=== PATIENT | female | born 1940 | race Caucasian/White ===

== ENCOUNTER 2017-10-31 10:55 | Inpatient (IN) | payer OTHER ==
[2017-10-31] VITALS (11 sets, daily range): BP systolic 120–138; BP diastolic 70–74; PULSE 90–99; TEMP 36.8; O2SAT 92–96; BMI 21.5
[~2017-10-31] VITALS: Ht 157.5 cm; Wt 52.2 kg
[~2017-10-31 10:55] MED LIST: AMLO-114 PO; ASPCH81 PO; BTP80 PO; CLTP PO; CMD25 PO; DXY100 PO; GLC500 PO; INSDGI SC; LCTX PO; LISI-788 PO; MULT-506 PO; OXGN; PRD10 PO; PRT40 PO
--- NOTE | 2017-10-31 11:33 | DIAGNOSTIC IMAGING REPORT ---
CHEST ONE VIEW PORTABLE CLINICAL HISTORY: Weakness, shortness of breath. COMPARISON STUDY: 12/10/2013 FINDINGS: The heart is normal in size. There is no focal pulmonary consolidation. There are no pleural effusions. There is mild chronic interstitial thickening.[ IMPRESSION: No active disease in the chest. Electronically signed by: Antione Davis M.D. 10/31/2017 11:32 AM Dictated Date/Time: 10/31/2017 11:31 AM
[2017-10-31 11:41] LABS: BASO % 0.1 %; BASO ABS # 0.02 K/uL (0-0.2); EOS % 0.9 %; EOS ABS # 0.12 K/uL (0-0.5); HEMATOCRIT 41.7 % (37-47); HEMOGLOBIN 14.4 g/dL (12.0-16.0); IG# 0.02 K/uL (0.00-0.02); MEAN CELL VOLUME 84.2 fL (80-100); MEAN CORPUSCULAR HEMOGLOBIN 29.1 pg (25-34); MEAN CORPUSCULAR HGB CONC 34.5 g/dl (32-36); MEAN PLATELET VOLUME 11.2 fL (7.4-10.4); MONO % 1.7 %; MONO ABS # 0.23 K/uL (0.11-0.59); NEUT % 85.2 %; NEUT ABS # 11.39 K/uL (1.4-6.5); PLATELET COUNT 357 K/uL (130-400); RED CELL DISTRIBUTION WIDTH CV 14.4 % (11.5-14.5); RED CELL DISTRIBUTION WIDTH SD 44.4 fL (36.4-46.3); WHITE BLOOD COUNT 13.38 K/uL (4.8-10.8)
[2017-10-31] MEDS ORDERED: METHYLPREDNISOLONE 125 MG VIAL IV STA (11:46)
[2017-10-31 11:49] LABS: INR 2.5 (0.9-1.1)
[2017-10-31] MEDS ORDERED: ALBUT/IPRATROP 3MG/0.5MG NEB 3 ML VIAL INH ONE (12:00)
[2017-10-31 12:07] LABS: ALBUMIN 3.5 gm/dl (3.4-5.0); ALT/SGPT 21 U/L (12-78); BLOOD UREA NITROGEN 20 mg/dl (7-18); CALCIUM 10.2 mg/dl (8.5-10.1); CARBON DIOXIDE 34 mmol/L (21-32); CREATININE 0.68 mg/dl (0.60-1.20); GLUCOSE 152 mg/dl (70-99); POTASSIUM 3.3 mmol/L (3.5-5.1); SODIUM 129 mmol/L (136-145)
[2017-10-31 12:18] LABS: ALKALINE PHOSPHATASE 85 U/L (45-117); AST/SGOT 17 U/L (15-37); TOTAL PROTEIN 7.7 gm/dl (6.4-8.2)
[2017-10-31] MEDS ORDERED: METF-841 PO (12:22)
[2017-10-31] MEDS ORDERED: WARF-280 PO (12:22)
[2017-10-31] MEDS ORDERED: INSDGI SC (12:22)
[2017-10-31] MEDS ORDERED: BTP80 PO (12:22)
[2017-10-31] MEDS ORDERED: IPRASOL4 INH (12:22)
[2017-10-31] MEDS ORDERED: AMLO-110 PO (12:22)
[2017-10-31] MEDS ORDERED: ALBU18002 INH (12:22)
[2017-10-31] MEDS ORDERED: LISI-788 PO (12:22)
--- NOTE | 2017-10-31 13:28 | EMERGENCY ROOM VISIT NOTE ---
History Report prepared by Maria De Jesus: Lindsey Bustillos Under the Supervision of: Dr. Thom Tenorio M.D. First contact with patient: 11:00 Chief Complaint: SHORTNESS OF BREATH Stated Complaint: SOB Nursing Triage Summary: pt reports she was seen by pcp last week for flu sx this week cough worse used albuterol inhaler no relief.pt reports she woke this am tighter tahn normal. prehospital neb tx endtidal co2 was 31 History of Present Illness The patient is a 77 year old female who presents to the Emergency Room with complaints of worsening SOB starting yesterday. The patient presents to the ED by EMS. The patient was diagnosed with flu 2 weeks ago. She started feeling more SOB yesterday and this morning. The patient has been on prednisone for 2 days. She tried a nebulizer at home today to no significant relief. Her oxygen saturation was 78 on room air upon arrival. She normally wears 4 L of oxygen. She has a history of COPD. She vomited once on the way here. Pt denies LOC, headache, fevers, chills, diaphoresis, visual changes, neck pain, chest pain, nausea, abdominal pain, back pain, melena, hematochezia, urinary symptoms, numbness, weakness, lymphadenopathy, rash, or other complaints. Source of History: patient, nursing staff Onset: yesterday Position: other (respiratory) Quality: other (SOB) Timing: worsening Associated Symptoms: + vomiting Review of Systems See HPI for pertinent positives and negatives. A total of ten systems were reviewed and were otherwise negative. 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 Social History Smoking Status: Former Smoker Marital Status: Occupation Status: retired Current/Historical Medications Scheduled Amlodipine (Norvasc), 5 MG PO DAILY Home O2 Therapy (Oxygen), 2 LITERS NA PRN Insulin Glargine (Lantus), 12 UNITS SC DAILY Lisinopril/Hctz (Zestoretic 20MG/25MG), 1 TAB PO DAILY Metformin HCl (Metformin HCl ER), 1,000 MG PO BID Sotalol HCl (Sotalol HCl), 80 MG PO Q12 Warfarin Sodium (Warfarin Sodium), 5 MG PO DAILY Scheduled PRN Albuterol Sulfate (Proair Respiclick), 2 PUFFS INH Q4 PRN for SOB/Wheezing Ipratropium-Albuterol (Duoneb), 1 TREATMENT INH Q4H PRN for SOB/Wheezing Allergies Coded Allergies: No Known Allergies (Verified , 10/31/17) Physical Exam Vital Signs Date Time Temp Pulse Resp B/P (MAP) Pulse Ox O2 Delivery O2 Flow Rate FiO2 10/31/17 12:55 84 32 95 10/31/17 12:25 83 24 97 10/31/17 11:59 90 20 95 Mask 5.0 10/31/17 11:58 96 20 95 Mask 5.0 10/31/17 11:55 83 29 95 10/31/17 11:25 87 20 96 10/31/17 11:10 91 Oxymask 6.0 10/31/17 11:00 36.6 93 26 158/99 78 Room Air 10/31/17 11:00 78 Room Air 10/31/17 10:59 158/99 Physical Exam GENERAL: Awake, alert, well-appearing, in no distress HENT: Normocephalic, atraumatic. Oropharynx unremarkable. EYES: Normal conjunctiva. Sclera non-icteric. NECK: Supple. No nuchal rigidity. FROM. No masses. RESPIRATORY: Heavy cough present. Scattered wheezes. Decreased air movement. Dyspneic. Some accessory muscle use. CARDIAC: Normal rate. Normal rhythm. No murmurs. No rubs. Extremities warm and well perfused. Pulses equal. No JVD. GI: Soft, non-distended. No tenderness to palpation. No rebound or guarding. No masses. RECTAL: Deferred. MUSCULOSKELETAL: Atraumatic. Chest examination reveals no tenderness. The back is symmetrical on inspection without obvious abnormality. There is no CVA tenderness to palpation. No joint edema. LOWER EXTREMITIES: Calves are equal size bilaterally and non-tender. No edema. No discoloration. NEURO: Normal sensorium. No sensory or motor deficits noted. SKIN: No rash or jaundice noted. Medical Decision & Procedures ER Provider Diagnostic Interpretation: Radiology results as stated below per my review and radiologist interpretation: CHEST ONE VIEW PORTABLE CLINICAL HISTORY: Weakness, shortness of breath. COMPARISON STUDY: 12/10/2013 FINDINGS: The heart is normal in size. There is no focal pulmonary consolidation. There are no pleural effusions. There is mild chronic interstitial thickening.[ IMPRESSION: No active disease in the chest. Electronically signed by: Antione Davis M.D. 10/31/2017 11:32 AM Dictated Date/Time: 10/31/2017 11:31 AM Laboratory Results 10/31/17 11:10 Red Blood Count 4.95, Mean Corpuscular Volume 84.2, Mean Corpuscular Hemoglobin 29.1, Mean Corpuscular Hemoglobin Concent 34.5, Mean Platelet Volume 11.2, Neutrophils (%) (Auto) 85.2, Lymphocytes (%) (Auto) 12.0, Monocytes (%) (Auto) 1.7, Eosinophils (%) (Auto) 0.9, Basophils (%) (Auto) 0.1, Neutrophils # (Auto) 11.39, Lymphocytes # (Auto) 1.60, Monocytes # (Auto) 0.23, Eosinophils # (Auto) 0.12, Basophils # (Auto) 0.02 10/31/17 11:10 Test 10/31/17 11:10 White Blood Count 13.38 K/uL (4.8-10.8) Red Blood Count 4.95 M/uL (4.2-5.4) Hemoglobin 14.4 g/dL (12.0-16.0) Hematocrit 41.7 % (37-47) Mean Corpuscular Volume 84.2 fL (80-100) Mean Corpuscular Hemoglobin 29.1 pg (25-34) Mean Corpuscular Hemoglobin Concent 34.5 g/dl (32-36) Platelet Count 357 K/uL (130-400) Mean Platelet Volume 11.2 fL (7.4-10.4) Neutrophils (%) (Auto) 85.2 % Lymphocytes (%) (Auto) 12.0 % Monocytes (%) (Auto) 1.7 % Eosinophils (%) (Auto) 0.9 % Basophils (%) (Auto) 0.1 % Neutrophils # (Auto) 11.39 K/uL (1.4-6.5) Lymphocytes # (Auto) 1.60 K/uL (1.2-3.4) Monocytes # (Auto) 0.23 K/uL (0.11-0.59) Eosinophils # (Auto) 0.12 K/uL (0-0.5) Basophils # (Auto) 0.02 K/uL (0-0.2) RDW Standard Deviation 44.4 fL (36.4-46.3) RDW Coefficient of Variation 14.4 % (11.5-14.5) Immature Granulocyte % (Auto) 0.1 % Immature Granulocyte # (Auto) 0.02 K/uL (0.00-0.02) Prothrombin Time 26.1 SECONDS (9.0-12.0) Prothromb Time International Ratio 2.5 (0.9-1.1) Activated Partial Thromboplast Time 35.0 SECONDS (21.0-31.0) Partial Thromboplastin Ratio 1.3 Anion Gap 9.0 mmol/L (3-11) Est Creatinine Clear Calc Drug Dose 53.9 ml/min Estimated GFR () 97.1 Estimated GFR (Non- 83.8 BUN/Creatinine Ratio 30.1 (10-20) Calcium Level 10.2 mg/dl (8.5-10.1) Magnesium Level 1.9 mg/dl (1.8-2.4) Total Bilirubin 0.4 mg/dl (0.2-1) Direct Bilirubin 0.1 mg/dl (0-0.2) Aspartate Amino Transf (AST/SGOT) 17 U/L (15-37) Alanine Aminotransferase (ALT/SGPT) 21 U/L (12-78) Alkaline Phosphatase 85 U/L (45-117) Total Creatine Kinase 42 U/L (26-192) Creatine Kinase MB 1.0 ng/ml (0.5-3.6) Creatine Kinase MB Ratio 2.4 (0-3.0) Troponin I < 0.015 ng/ml (0-0.045) Total Protein 7.7 gm/dl (6.4-8.2) Albumin 3.5 gm/dl (3.4-5.0) Thyroid Stimulating Hormone (TSH) 1.820 uIu/ml (0.300-4.500) Laboratory results reviewed by me Medications Administered Medications (Trade) Dose Ordered Sig/Liset Route Start Time Stop Time Status Last Admin Dose Admin Albuterol/ Ipratropium (Duoneb) 12 ml ONE ONCE INH 10/31/17 12:00 10/31/17 12:01 DC 3/2/18 11:56 12 ML Methylprednisolone Sodium Succinate (Solu-Medrol IV) 125 mg NOW STAT IV 10/31/17 11:46 10/31/17 11:48 DC 10/31/17 11:59 125 MG ECG Per My Interpretation Indication: SOB/dyspnea Rate (beats per minute): 86 Rhythm: normal sinus Findings: nonspecific-ST abn, no ectopy, other (LVH, repolarization abnormality ) ED Course 1122: The patient was evaluated in room C10. A complete history and physical exam was performed. 1146: Solu-Medrol IV 125 mg IV. 1200: Duoneb 12 ml INH. 1248: I discussed the patient's case with МАРИНА Richard. The patient will be evaluated for further treatment and disposition. 1250: Upon reexamination, the patient was stable. I discussed the test results and treatment plan with her. The patient will be evaluated for further management. Medical Decision Triage Nursing notes reviewed. The patient's presentation and history were concerning for SOB. Etiologies such as pneumonia, COPD, reactive airway disease, CHF, cardiac ischemia, pulmonary embolism, pneumothorax, musculoskeletal, infections, gastrointestinal, as well as others were entertained. The patient was evaluated. She was wheezy and hypoxic. She responded to supplemental oxygen. She was given an hour-long treatment plus Solu-Medrol. She was doing better with this. Her white count was mildly elevated. Chest x- ray revealed no evidence of pneumonia. The patient is currently taking prednisone. She had negative cardiac markers. She had a therapeutic INR. ECG was nonischemic. Given the hypoxia and failure of outpatient management she will need treatment in the hospital. Consultation was made with the hospitalist service. The patient was evaluated in the Emergency Room for further management. Medication Reconcilliation Current Medication List: was personally reviewed by me Blood Pressure Screening Patient's blood pressure: Elevated blood pressure Referred to hospitalist. Consults Consulting Physician: МАРИНА Richard Returned Call: [phone] Discussed the patient's case. The patient will be evaluated for further treatment and disposition. Impression Primary Impression: SOB (shortness of breath) Additional Impressions: Hypoxia COPD exacerbation Hyponatremia Scribe Attestation The scribe's documentation has been prepared under my direction and personally reviewed by me in its entirety. I confirm that the note above accurately reflects all work, treatment, procedures, and medical decision making performed by me. Departure Information Dispostion Being Evaluated By Hospitalist Referrals Valerie Leone D.O. (PCP) Patient Instructions [facility] Problem Qualifiers
[2017-10-31] MEDS ORDERED: POTASSIUM CHLORIDE 10 MEQ TABCR PO STA ×2 (13:57→15:05)
[2017-10-31] MEDS ORDERED: POLYETHYLENE (MIRALAX) 17 GM PACK PO PRN (14:15)
[2017-10-31] MEDS ORDERED: NITROGLYCERIN 0.4 MG SL PER TAB CHARGE SL PRN (14:15)
[2017-10-31] MEDS ORDERED: GLUCOSE 40% GEL 15 GM TUBE PO PRN (14:15)
[2017-10-31] MEDS ORDERED: DEXTROSE 50% 50 ML SYR IV PRN (14:15)
[2017-10-31] MEDS ORDERED: GLUCOSE 10 TABS/TUBE PO PRN (14:15)
[2017-10-31] MEDS ORDERED: MAGNESIUM HYDROXIDE SUSP 30 ML UDC PO PRN (14:15)
[2017-10-31] MEDS ORDERED: ONDANSETRON INJ 2 MG/ML 2 ML VIAL IV PRN (14:15)
[2017-10-31] MEDS ORDERED: ALUMINUM/MAGNESIUM/SIMETH (MAALOX MAX) 30 ML UDC PO PRN (14:15)
[2017-10-31] MEDS ORDERED: GLUCAGON FOR INJ 1 MG VIAL SQ PRN (14:15)
[2017-10-31] MEDS ORDERED: PHARMACY GLYCEMIC MGMT CONSULT PRN (15:08)
[2017-10-31] MEDS ORDERED: NSS + 20MEQ KCL 1000ML 1,000 ML IV SCH (15:15)
[2017-10-31] MEDS ORDERED: DOXYCYCLINE HYCLATE 100 MG CAP PO ONE (15:15)
[2017-10-31] MEDS ORDERED: ASPI-435 PO (15:27)
[2017-10-31] MEDS ORDERED: MULTTAB58 PO (15:27)
[2017-10-31] MEDS ORDERED: OXGN (15:27)
[2017-10-31] MEDS ORDERED: CALC-354 PO (15:27)
[2017-10-31] MEDS ORDERED: BENZ-54 PO (15:27)
[2017-10-31] MEDS ORDERED: WARFARIN SOD 2.5 MG TAB PO SCH (15:30)
[2017-10-31] MEDS ORDERED: INSULIN ASPART 100 UNITS/ML 3 ML PEN SC SCH (15:30)
[2017-10-31] MEDS ORDERED: GUAIFENESIN/DEXTROM SYRUP 100MG/10MG 5ML UDC PO PRN (15:45)
[2017-10-31] MEDS: IPRATROPIUM BROMIDE NEB SOLN 0.02% 2.5 ML VIAL INH SCH ×2 (15:45→19:10)
[2017-10-31] MEDS: LEVALBUTEROL 1.25MG/0.5ML NEB INH SCH ×2 (15:45→19:09)
[2017-10-31] MEDS: WARFARIN SOD 2.5 MG TAB PO SCH (15:59)
[2017-10-31] MEDS ORDERED: GUAIFENESIN/DEXTROM SYRUP 100MG/10MG 5ML UDC PO ONE (16:00)
--- NOTE | 2017-10-31 16:04 | Progress Note ---
Progress Note Date of Service Oct 31, 2017. Progress Note ATTENDING NOTE : pt seen and examined, care co -ordinated with Lakshmi Enrique PA-C This is a 77-year-old female with past medical history of advanced COPD (FEV1 66 %), with emphysema, prior history of smoking 10 pack year, quit in 2011, nocturnal and ambulatory hypoxemia requiring supplemental oxygen 4 L via nasal cannula, history of pulmonary nodules with establish stability, hypertension type 2 diabetes, mitral and tricuspid regurgitation, LVH and paroxysmal atrial fibrillation on long-term anticoagulation therapy with Coumadin and sotalol. Patient came to ER with complaining of dry nonproductive cough, shortness of breath, significant discharge dyspnea on exertion which has been ongoing for the past 1 week. Patient mentioned she was seen by her security incident response specialist at [facility], 2 weeks earlier and was thought that she had few. She refused to have a flu swab, was discharged with prednisone taper and p.o. doxycycline Patient mentions she felt for a few days, then started to have increased shortness of breath with minimum activity. Denies of any fever or chills, had persistent cough with whitish sputum. Today in the ER patient was found to be hypoxic, tachypneic minimum improvement of symptoms with 1 hour-long neb treatment, given IV Solu-Medrol 125 mg times 1X chest x-ray shows no evidence of infiltrate Physical Exam: General: Chronically ill appearing patient appears to be in distress for short of breath HEENT: Lips appear to be cyanotic, dry oral mucosa Lungs: Very poor air entry bilaterally, no audible wheeze or rales noted Heart: Regular S1-S2. Abdomen: Soft nontender bowel sounds active Extremity: No lower extremity edema Neuro: Generalized weakness, no focal neurological deficit noted ASSESSMENT AND PLAN : 1. Acute on chronic hypoxemic respiratory failure/advanced COPD: Presents with hypoxia dyspnea on exertion hypercapnic COPD exacerbation possibly due to viral illness Flu PCR ordered Patient will be admitted to telemetry We will continue IV Solu-Medrol 60 mg every 8 hours, treatment schedule and every 2 hours as needed for shortness of breath Order for ABG Patient will be placed on BiPAP Pulmonology consult requested case discussed with on-call pulmonology patient follows with pulmonology team increase were discussed in the clinic Pulmonary function test on 03/13/2017: Spirometry revealed moderately severe obstruction by ATS criteria. Flow volume loops were obstructive. Lung volumes were performed. The TLC (total lung capacity) was increased consistent with hyperinflation. The RV/TLC ratio was increased consistent with air trapping. The uncorrected diffusion capacity was severely reduced. Compared to prior PFTs in 2015 there has been significant decrease in FVC by 31%. Compared to prior PFTs there has been associated with significant decrease in FEV1 by 35 compared to prior PFD there has been significant decrease in diffusion capacity was 16% 2. Flulike symptoms Order for influenza antigen and PCR Continue supportive care Empiric antibiotic with doxycycline 3. History of paroxysmal A. fib on Coumadin INR therapeutic On sotalol continued 4. Type 2 diabetes Patient will be continued with blood tests ordered insulin sliding scale Monitoring please check closely blood sugar expected to be elevated in setting of IV steroids use We will adjust sliding scale as needed CODE STATUS: Full code-discussed with patient DVT prophylaxis: On Coumadin disposition: Lives at home by herself was independent in activities PT OT eval requested prior to discharge home Patient requesting a portable oxygen to be arranged prior to discharge Social service consulted for discharge Please refer to further documentation by Lakshmi Elder PA-C please see her documentation for further discussion of other issues. Stephanie Torres MD
--- NOTE | 2017-10-31 16:09 | History and Physical ---
History & Physical Date & Time of Service: Oct 31, 2017 at 14:29 Chief Complaint: SOB Primary Care Physician: Valerie Leone D.O. History of Present Illness Source: patient, clinic records, hospital records Pt is 77 y/o F with PMH COPD with hypoxemia on 4L oxygen, HTN, DM II, paroxysmal a-fib on Coumadin, mitral regurgitation who presented to ER with c/o increased SOB & cough x couple of days. Pt called [facility] office 10/01/17 with myalgias, cough, SOB. She denied having influenza swab at that time, and her symptoms were reported for one week , so no Tamiflu was given. She had prednisone for 5 days and Tessalon Perles. Seen by Carri RODRIGUEZ-pulmonology [place] on 10/07/17. At that time pt presented to office not using her oxygen and sats were 86% on RA. At that visit pt feeling improvement of her symptoms. Pt with hx intolerance to inhalers in past. She was rx Dulera recently, however pt reportedly never picked it up as the other inhalers in past never worked. She states past couple of days with cough and increased SOB at rest and unable to walk couple of steps without worsening SOB. Cough productive clear. She reports has been using 4L NC oxygen at home and using her DuoNeb Q4H with using albuterol inhaler in between nebs without much relief. Restarted prednisone rescue kit yesterday with 40 mg daily and using Tessalon Perles. Presented to ER today as symptoms not improving. This morning felt nauseated, vomited once. Hasn't eaten yet today. Denies fever/chills, diaphoresis, diarrhea, constipation, DÍAZ, dizziness, syncope, vision changes, neck pain, CP, palpitations, hemoptysis, sore throat, choking, otalgia, rhinorrhea, abdominal pain, paresthesias, weakness, extremity edema, rashes, urinary symptoms. In ER today sats 78% on RA up to 95% on oxymask. Afebrile. R: 26-32, BP: 158/ 99. WBC: 13, NA: 129, K: 3.3, Gluc: 152. negative troponin. INR: 2.5. Pending blood cultures. EKG: NSR, rate 86, CXR: no acute. Pt given hour long DuoNeb and Solu-medrol in ER with some improvement. 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 (6) Diabetes Status: Chronic (7) Hypertension Status: Chronic (8) Hypoxia Status: Chronic (9) Pleural effusion Status: Resolved (10) Pulmonary edema Status: Resolved (11) Respiratory distress Status: Resolved Surgical Problems: (1) History of partial mastectomy Status: Resolved Family History Diabetes mellitus FH: CAD (coronary artery disease) Social History Smoking Status: Former Smoker (quit 2011, smoked 0.5ppd x 20 year ) Smokeless Tobacco Use: No Alcohol Use: none Drug Use: none Marital Status: Housing status: lives alone Occupational Status: retired Immunizations History of Influenza Vaccine: Unknown History of Tetanus Vaccine?: Unknown History of Pneumococcal: Unknown History of Hepatitis B Vaccine: Unknown Allergies Coded Allergies: No Known Allergies (Verified , 10/31/17) Home Medications Scheduled Amlodipine (Norvasc), 5 MG PO DAILY Aspirin (Aspirin 81), 1 TAB PO DAILY Benzonatate (Tessalon Perles), 100 MG PO BID Calcium Carbonate-Cholecalcife (Caltrate 600+D), 2 TAB PO DAILY Home O2 Therapy (Oxygen), 4 LITERS NA CONTINOUS Insulin Glargine (Lantus), 12 UNITS SC HS Lisinopril/Hctz (Zestoretic 20MG/25MG), 1 TAB PO DAILY Metformin HCl (Metformin HCl ER), 1,000 MG PO BID Multiple Vitamin (Multivitamin), 1 TAB PO DAILY Sotalol HCl (Sotalol HCl), 80 MG PO Q12 Warfarin Sodium (Warfarin Sodium), 2.5 MG PO UD Scheduled PRN Albuterol Sulfate (Proair Respiclick), 2 PUFFS INH Q4 PRN for SOB/Wheezing Ipratropium-Albuterol (Duoneb), 1 TREATMENT INH Q4H PRN for SOB/Wheezing Review of Systems See HPI for pertinent positives & negatives. All other systems reviewed and were otherwise negative Physical Exam Vital Signs Date Time Temp Pulse Resp B/P (MAP) Pulse Ox O2 Delivery O2 Flow Rate FiO2 3/2/18 14:05 84 32 158/99 95 10/31/17 12:55 84 32 95 10/31/17 12:25 83 24 97 10/31/17 11:59 90 20 95 Mask 5.0 10/31/17 11:58 96 20 95 Mask 5.0 10/31/17 11:55 83 29 95 10/31/17 11:25 87 20 96 10/31/17 11:10 91 Oxymask 6.0 10/31/17 11:00 36.6 93 26 158/99 78 Room Air 10/31/17 11:00 78 Room Air 10/31/17 10:59 158/99 General Appearance: WD/WN, + mild distress (respiratory distress) Head: normocephalic, atraumatic Eyes: normal inspection, PERRL, sclerae normal ENT: hearing grossly normal, + pertinent finding (mucous membranes) Neck: supple, no JVD, no carotid bruits Respiratory/Chest: + respiratory distress, + decreased breath sounds, + accessory muscle use Cardiovascular: regular rate, rhythm, normal peripheral pulses, + systolic murmur Abdomen/GI: normal bowel sounds, non tender, soft Extremities/Musculoskelatal: normal inspection, normal capillary refill, no pedal edema Neurologic/Psych: alert, normal mood/affect, oriented x 3 Skin: normal color, warm/dry Diagnostics Laboratory Results Results Past 24 Hours Test 10/31/17 11:10 Range/Units White Blood Count 13.38 4.8-10.8 K/uL Red Blood Count 4.95 4.2-5.4 M/uL Hemoglobin 14.4 12.0-16.0 g/dL Hematocrit 41.7 37-47 % Mean Corpuscular Volume 84.2 80-100 fL Mean Corpuscular Hemoglobin 29.1 25-34 pg Mean Corpuscular Hemoglobin Concent 34.5 32-36 g/dl Platelet Count 357 130-400 K/uL Mean Platelet Volume 11.2 7.4-10.4 fL Neutrophils (%) (Auto) 85.2 % Lymphocytes (%) (Auto) 12.0 % Monocytes (%) (Auto) 1.7 % Eosinophils (%) (Auto) 0.9 % Basophils (%) (Auto) 0.1 % Neutrophils # (Auto) 11.39 1.4-6.5 K/uL Lymphocytes # (Auto) 1.60 1.2-3.4 K/uL Monocytes # (Auto) 0.23 0.11-0.59 K/uL Eosinophils # (Auto) 0.12 0-0.5 K/uL Basophils # (Auto) 0.02 0-0.2 K/uL RDW Standard Deviation 44.4 36.4-46.3 fL RDW Coefficient of Variation 14.4 11.5-14.5 % Immature Granulocyte % (Auto) 0.1 % Immature Granulocyte # (Auto) 0.02 0.00-0.02 K/uL Prothrombin Time 26.1 9.0-12.0 SECONDS Prothromb Time International Ratio 2.5 0.9-1.1 Activated Partial Thromboplast Time 35.0 21.0-31.0 SECONDS Partial Thromboplastin Ratio 1.3 Sodium Level 129 136-145 mmol/L Potassium Level 3.3 3.5-5.1 mmol/L Chloride Level 86 98-107 mmol/L Carbon Dioxide Level 34 21-32 mmol/L Anion Gap 9.0 3-11 mmol/L Blood Urea Nitrogen 20 7-18 mg/dl Creatinine 0.68 0.60-1.20 mg/dl Est Creatinine Clear Calc Drug Dose 53.9 ml/min Estimated GFR () 97.1 Estimated GFR (Non- 83.8 BUN/Creatinine Ratio 30.1 10-20 Random Glucose 152 70-99 mg/dl Calcium Level 10.2 8.5-10.1 mg/dl Magnesium Level 1.9 1.8-2.4 mg/dl Total Bilirubin 0.4 0.2-1 mg/dl Direct Bilirubin 0.1 0-0.2 mg/dl Aspartate Amino Transf (AST/SGOT) 17 15-37 U/L Alanine Aminotransferase (ALT/SGPT) 21 12-78 U/L Alkaline Phosphatase 85 45-117 U/L Total Creatine Kinase 42 26-192 U/L Creatine Kinase MB 1.0 0.5-3.6 ng/ml Creatine Kinase MB Ratio 2.4 0-3.0 Troponin I < 0.015 0-0.045 ng/ml Total Protein 7.7 6.4-8.2 gm/dl Albumin 3.5 3.4-5.0 gm/dl Thyroid Stimulating Hormone (TSH) 1.820 0.300-4.500 uIu/ml Microbiology Results 10/31/17 Blood Culture, Received Pending 10/31/17 Blood Culture, Received Pending Diagnostic Radiology CXR: IMPRESSION: No active disease in the chest. EKG EKG: NSR, rate 86 Impression Assessment and Plan COPD EXACERBATION ACUTE ON CHRONIC HYPOXIA Pt with hx emphysema, hypoxemia, O2 dependent on 4L NC presented with cough and increased SOB for couple of days. Given hour long duoneb in ER and solumedrol with limited relief, pt continues to be tachypneic, with work of breathing and diminished breath sounds throughout. Pt afebrile, WBC: 13, may be from steroids. CXR: no infiltrate -pending influenza swab -ABG ordered -Bipap -doxycycline -Xopenex/Atrovent nebs -solumedrol 40mg IV Q8H -tessalon perles, guaifenesin prn cough -consult pulmonology -repeat CBC in am -pt reports having trouble getting portable O2 and would like one. Consider Rx and assistance with this upon d/c. HYPOKALEMIA K: 3.3 -replace and monitor electrolytes HYPNATREMIA Na:129 -IVF -monitor electrolytes DM II HA1c on 09/08/17 was 7.0. Glucose: 152 -hold metformin -NovoLog sliding scale -continue lantus HTN Stable -hold lisinopril/hctz at this time -continue sotalol, amlodipine PAROXYSMAL A-FIB ON COUMADIN INR: 2.5. sinus rhythm at this time -continue coumadin -monitor INR -continue sotalol HX LVH, MITRAL REGURGITATION Denies CP. negative troponin -echo Hx L BREAST CA S/P SURGERY DVT Prophylaxis -On coumadin Disposition admit tele Full Code as per discussion with pt Follows with Dr Leone for routine care Pt was seen with Dr Torres. See addendum ATTENDING NOTE : pt seen and examined, care co -ordinated with Lakshmi Enrique PA-C This is a 77-year-old female with past medical history of advanced COPD (FEV1 66 %), with emphysema, prior history of smoking 10 pack year, quit in 2011, nocturnal and ambulatory hypoxemia requiring supplemental oxygen 4 L via nasal cannula, history of pulmonary nodules with establish stability, hypertension type 2 diabetes, mitral and tricuspid regurgitation, LVH and paroxysmal atrial fibrillation on long-term anticoagulation therapy with Coumadin and sotalol. Patient came to ER with complaining of dry nonproductive cough, shortness of breath, significant discharge dyspnea on exertion which has been ongoing for the past 1 week. Patient mentioned she was seen by her community engagement specialist at [facility], 2 weeks earlier and was thought that she had few. She refused to have a flu swab, was discharged with prednisone taper and p.o. doxycycline Patient mentions she felt for a few days, then started to have increased shortness of breath with minimum activity. Denies of any fever or chills, had persistent cough with whitish sputum. Today in the ER patient was found to be hypoxic, tachypneic minimum improvement of symptoms with 1 hour-long neb treatment, given IV Solu-Medrol 125 mg times 1X chest x-ray shows no evidence of infiltrate Physical Exam: General: Chronically ill appearing patient appears to be in distress for short of breath HEENT: Lips appear to be cyanotic, dry oral mucosa Lungs: Very poor air entry bilaterally, no audible wheeze or rales noted Heart: Regular S1-S2. Abdomen: Soft nontender bowel sounds active Extremity: No lower extremity edema Neuro: Generalized weakness, no focal neurological deficit noted ASSESSMENT AND PLAN : 1. Acute on chronic hypoxemic respiratory failure/advanced COPD: Presents with hypoxia dyspnea on exertion hypercapnic COPD exacerbation possibly due to viral illness Flu PCR ordered Patient will be admitted to telemetry We will continue IV Solu-Medrol 60 mg every 8 hours, treatment schedule and every 2 hours as needed for shortness of breath Order for ABG Patient will be placed on BiPAP Pulmonology consult requested case discussed with on-call pulmonology patient follows with pulmonology team increase were discussed in the clinic Pulmonary function test on 03/13/2017: Spirometry revealed moderately severe obstruction by ATS criteria. Flow volume loops were obstructive. Lung volumes were performed. The TLC (total lung capacity) was increased consistent with hyperinflation. The RV/TLC ratio was increased consistent with air trapping. The uncorrected diffusion capacity was severely reduced. Compared to prior PFTs in 2014 there has been significant decrease in FVC by 31%. Compared to prior PFTs there has been associated with significant decrease in FEV1 by 35 compared to prior PFD there has been significant decrease in diffusion capacity was 16% 2. Flulike symptoms Order for influenza antigen and PCR Continue supportive care Empiric antibiotic with doxycycline 3. History of paroxysmal A. fib on Coumadin INR therapeutic On sotalol continued 4. Type 2 diabetes Patient will be continued with blood tests ordered insulin sliding scale Monitoring please check closely blood sugar expected to be elevated in setting of IV steroids use We will adjust sliding scale as needed CODE STATUS: Full code-discussed with patient DVT prophylaxis: On Coumadin disposition: Lives at home by herself was independent in activities PT OT eval requested prior to discharge home Patient requesting a portable oxygen to be arranged prior to discharge Social service consulted for discharge Please refer to further documentation by Lakshmi Elder PA-C please see her documentation for further discussion of other issues. Stephanie Torres MD Resuscitation Status Full code VTE Prophylaxis Will order VTE Prophylaxis: Yes (On coumadin) Additional Copies To Valerie Leone D.O.
[2017-10-31] MEDS ORDERED: INSULIN HUMAN REGULAR SC SCH (16:30)
[2017-10-31 16:53] LABS: INFLUENZA A PCR Neg for Influ A (NEG); INFLUENZA B PCR Neg for Influ B (NEG)
[2017-10-31] MEDS ORDERED: LEVALBUTEROL 0.63MG/3 ML NEB INH PRN (17:15)
[2017-10-31] MEDS: FLUTICASONE/SALMETEROL (ADVAIR) 500/50 INH 14 PUFF INH SCH ×2 (17:51→20:41)
[2017-10-31] MEDS: INSULIN ASPART 100 UNITS/ML 3 ML PEN SC SCH ×2 (17:55→20:49)
[2017-10-31] MEDS: INSULIN GLARGINE SOLOSTAR 100 UNITS/ML 3 ML PEN SC SCH (17:56)
[2017-10-31] MEDS ORDERED: LEVALBUTEROL/IPRATROPIUM NEB INH SCH (18:00)
--- NOTE | 2017-10-31 18:36 | PULMONARY CONSULTATION ---
DATE OF CONSULTATION: 10/31/2017 TIME: 4:50 p.m. REPORT OF CONSULTATION: The patient was seen in 287, bed 2. She is a 77-year-old female with a history of severe COPD. She has had breathing problems for several years. She estimates it has been at least 3 years that she has had COPD. She follows with [facility]. She is on nasal cannula oxygen at 4 liters at home, although she apparently does not have portable oxygen and is unwilling to wear it outside of her house. The patient told me that about 2 weeks ago she had flu-like symptoms. However, in the history and physical from this admission it indicated that she had symptoms on 10/01/2017 including myalgias, cough and shortness of breath. She did not want a flu swab done. She was treated with some prednisone for a few days as well as Tessalon Perles, and felt better. She has had worsening of her symptoms more recently, however. I am not sure how good a historian patient is. She also was quite short of breath and having difficulty giving a history. She tells me that she has had prednisone rescue kits that have been prescribed for her. She states she has used these 3 or 4 times in the past year. She has had some nausea. Apparently, she has had some vomiting including once earlier today. She denies chest pains, chills, fevers or sweats. In the Emergency Room today, her saturation on room air was 78%. The patient was last hospitalized for COPD apparently back in 2013 when she was in for 5 days during the month of November. The patient quit smoking about 10 years ago. She smoked 1/2 pack per day for 38 years. She insists she did not start smoking until age 29. PAST SURGICAL HISTORY: 1. Left partial mastectomy. 2. Repair of vaginal prolapse. PAST MEDICAL HISTORY: 1. COPD as noted. 2. 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 3. Hypertension. 4. Diabetes. SOCIAL HISTORY: Tobacco 1/2 pack per day for 38 years as noted. ETOH - none. ALLERGIES: No known allergies. FAMILY HISTORY: Father age 93, old age. Mother , had heart disease and diabetes. MEDICATIONS AT HOME: 1. ProAir p.r.n. 2. Nebs with albuterol/ipratropium 4 times a day. 3. Warfarin. 4. Sotalol 80 mg q. 12 hours. 5. Metformin 1000 mg b.i.d. 6. Lisinopril/HCTZ 20/25 one daily. 7. Lantus insulin 12 units at bedtime. 8. Caltrate D. 9. Tessalon Perles. 10. Baby aspirin 1 daily. 11. Amlodipine 5 mg daily. REVIEW OF SYSTEMS: Negative except for the above-mentioned complaints. However, it was difficult obtaining the history as patient was quite winded. PHYSICAL EXAMINATION: GENERAL: The patient is a 77-year-old female who was cooperative, alert and oriented. She was in some respiratory distress at the time I saw her, but she had just walked to the bathroom and back. VITAL SIGNS: Temperature is 36.8. HEENT: Eye exam suggests cataract formation, she indicated she never been told that before. An OxyMask was in place. Thus, I could not well examine the nasal passage or oropharynx. NECK: Palpation of the neck reveals no lymph nodes. HEART: Heart rate was 93 per minute. Blood pressure 128/70. The cardiac rhythm was regular. CHEST: Showed a dorsal kyphosis. The respiratory rate was 24 breaths per minute. The breath sounds were decreased. Some wheezing was heard on expiration. Saturation was 92% on a 6-liter OxyMask. ABDOMEN: Soft. Bowel sounds were present. There was no apparent tenderness to palpation. EXTREMITIES: Showed no cyanosis, clubbing or edema. DIAGNOSTIC DATA: Chest x-ray shows no active disease. There was increased interstitial prominence. There was no evidence of effusions or infiltrates. LABORATORY DATA: White count is 13.38. Hemoglobin is 14.4. Platelets 357,000. INR was 2.5. Urinalysis was negative. Blood gas showed a pH of 7.42 with a pCO2 of 55 and a pO2 of 83; done on 6 liters. Electrolytes show sodium 129, potassium 3.3, chloride 86, bicarbonate 34. The BUN is 20 with a creatinine of 0.68. Blood sugar 237. Troponin was negative. Liver functions were normal. ProBNP was 144. TSH was 1.82. Flu test was negative. IMPRESSION: 1. Acute on chronic respiratory failure with hypoxia and hypercarbia. 2. Chronic obstructive pulmonary disease with exacerbation. 3. Hyponatremia. COMMENTS AND RECOMMENDATIONS: The patient is quite short of breath. Her pCO2 was elevated, although the pH was normal, suggesting that this is chronically elevated. She is, however, requiring much more oxygen than normal. Her x-ray does not look bad, but patient obviously must be tight. It is highly unlikely she has pulmonary embolic disease in light of the fact she is on Coumadin. She is on methylprednisolone 40 mg IV q. 8 hours. She is on doxycycline. She does have Tessalon ordered b.i.d., this could be increased to t.i.d. if need be. She is ordered Advair. She reportedly has had problems in the past with all kinds of inhalers other than the rescue inhaler. Thus, I am not sure if she will tolerate that. This information was obtained from reviewing some office records that Dr. Torres was able to show me. She is on levalbuterol and ipratropium every 6 hours while awake. I believe she will likely need some type of p.r.n. respiratory treatment as well because I suspect it is not going to last that long for her. We will order a levalbuterol 0.63 p.r.n. Thank you very much for asking me to assist in her care.
[2017-10-31] MEDS: SOTALOL HCL 80 MG TAB PO SCH (20:42)
[2017-10-31] MEDS: DOXYCYCLINE HYCLATE 100 MG CAP PO SCH (20:43)
[2017-10-31] MEDS: BENZONATATE 100MG CAP PO SCH (20:43)
[2017-10-31] MEDS: METHYLPREDNISOLONE IV 40 MG in SYRINGE 0 ML IV SCH (21:56)
[2017-11-01] VITALS (16 sets, daily range): BP systolic 112–167; BP diastolic 71–90; PULSE 74–92; TEMP 36.3–37; O2SAT 90–95
[2017-11-01] MEDS ORDERED: INSULIN HUMAN REGULAR SC SCH
[2017-11-01] MEDS: INSULIN ASPART 100 UNITS/ML 3 ML PEN SC SCH ×6 (04:12→20:41)
[2017-11-01 05:39] LABS: HEMATOCRIT 38.9 % (37-47); HEMOGLOBIN 13.2 g/dL (12.0-16.0); MEAN CELL VOLUME 83.3 fL (80-100); MEAN CORPUSCULAR HEMOGLOBIN 28.3 pg (25-34); MEAN CORPUSCULAR HGB CONC 33.9 g/dl (32-36); MEAN PLATELET VOLUME 10.5 fL (7.4-10.4); PLATELET COUNT 341 K/uL (130-400); RED CELL DISTRIBUTION WIDTH CV 14.7 % (11.5-14.5); RED CELL DISTRIBUTION WIDTH SD 44.4 fL (36.4-46.3); WHITE BLOOD COUNT 10.34 K/uL (4.8-10.8)
[2017-11-01 05:52] LABS: INR 2.7 (0.9-1.1)
[2017-11-01] MEDS: METHYLPREDNISOLONE IV 40 MG in SYRINGE 0 ML IV SCH ×3 (06:02→21:32)
[2017-11-01 06:11] LABS: CALCIUM 9.1 mg/dl (8.5-10.1); CREATININE 0.69 mg/dl (0.60-1.20); POTASSIUM 3.8 mmol/L (3.5-5.1)
[2017-11-01] MEDS: IPRATROPIUM BROMIDE NEB SOLN 0.02% 2.5 ML VIAL INH SCH ×3 (06:57→19:03)
[2017-11-01] MEDS: LEVALBUTEROL 1.25MG/0.5ML NEB INH SCH ×3 (06:57→19:03)
[2017-11-01] MEDS: FLUTICASONE/SALMETEROL (ADVAIR) 500/50 INH 14 PUFF INH SCH ×2 (08:04→20:38)
[2017-11-01] MEDS: DOXYCYCLINE HYCLATE 100 MG CAP PO SCH ×2 (08:05→20:37)
[2017-11-01] MEDS: AMLODIPINE BESYLATE 5 MG TAB PO SCH (08:05)
[2017-11-01] MEDS: BENZONATATE 100MG CAP PO SCH ×2 (08:05→20:37)
[2017-11-01] MEDS: ASPIRIN 81 MG ECTAB PO SCH (08:05)
[2017-11-01] MEDS: SOTALOL HCL 80 MG TAB PO SCH ×2 (08:05→20:38)
[2017-11-01] MEDS: MULTIVITAMIN TAB PO SCH (08:05)
[2017-11-01] MEDS: INSULIN GLARGINE SOLOSTAR 100 UNITS/ML 3 ML PEN SC SCH ×2 (08:10→20:41)
[2017-11-01] MEDS ORDERED: ASPIRIN 81 MG ECTAB PO SCH (09:00)
--- NOTE | 2017-11-01 11:22 | Pharmacy Progress Note ---
Glycemic Control Intl Consult Date of Service Nov 01, 2017. Scope Glycemic Pharmacist consulted by Dr Torres on 10/31/17 for glycemic control and to write orders per [facility] inpatient glycemic control protocol Objective Weight (Kilograms): 55.500 Accuchecks BSG (last 24hrs): Test 10/31/17 16:24 10/31/17 20:23 11/01/17 00:07 11/01/17 04:06 Bedside Glucose 237 mg/dl (70-90) 172 mg/dl (70-90) 138 mg/dl (70-90) 163 mg/dl (70-90) Test 11/01/17 05:21 11/01/17 07:44 Random Glucose 155 mg/dl (70-99) Bedside Glucose 154 mg/dl (70-90) Laboratory Data (last 24hrs) Test 11/01/17 05:21 Anion Gap 7.0 mmol/L BUN/Creatinine Ratio 32.1 Blood Urea Nitrogen 22 mg/dl Creatinine 0.69 mg/dl Hemoglobin A1c 7.0 % Potassium Level 3.8 mmol/L Sodium Level 131 mmol/L White Blood Count 10.34 K/uL HbA1c Test 11/01/17 05:21 Hemoglobin A1c 7.0 % (4.5-5.6) H Recent Pertinent Medications Outpatient Anti-diabetic Regimen: * Lantus 12 units SQ daily * Metformin 1,000mg PO BIDM The patient is currently receiving: * Basal insulin: Lantus 12-15 units every 12 hours * Correctional Insulin: Novolog Correction per scale ACHS Goal Range: Low 110 mg/dL - High 140 mg/dL Correction Factor: 25 mg/dL/unit * Prandial insulin: Per carb ratio of 1 unit per 9 grams CHO consumed * Oral Agents: on hold for admission Risk Factors for Insulin Resistance: * Steroids * Infection * Diet Assessment & Plan ASSESSMENT: * 77yo T2DM female with adequate degree of outpatient control per recent A1c * Pt admitted with SOB and initiated on IV high dose RTC Solumedrol + abx * Severe hyperglycemia likely to result from steroids despite adquate outpatient control. * Will stress dose outpatient Lantus and use weight based/high stress NovoLog scale ACHS while metformin on hold. PLAN FOR INPATIENT GLYCEMIC CONTROL: * Holding outpatient oral diabetes medications * Use NovoLog instead * Basal insulin (weight and between ~stress 2-3, this is double outpatient dose so we will need to taper at the same time as steroid dose taper) * Lantus 12-15 units SQ BID; dose based on BSG * 12 units if BSG <140 mg/dl * 15 units if BSG 140 mg/dl or above * Bolus insulin (weight and stress of 3) * NovoLog per scale ACHS or Q6hrs while NPO * Goal Range: Low 110 mg/dL - High 140 mg/dL * Correction Factor: 25 mg/dL/unit * Nutritional / Prandial insulin per carb ratio of 1 unit per 9 grams CHO consumed * Please note that the plan above was derived based on current level of insulin resistance and hospital stress. These recommendations are appropriate for inpatient admission only. Plan of care upon discharge will need to be reassessed to avoid potential outpatient hypo/hyperglycemia. Thank you.
[2017-11-01] MEDS: ACETAMINOPHEN 325 MG TAB PO PRN (11:46)
[2017-11-01] MEDS: MAGNESIUM SULFATE 1GM / D5W 1 GM in PREMIXED IN D5W 100 ML IV SCH ×2 (14:17→15:35)
--- NOTE | 2017-11-01 14:35 | ECHOCARDIOGRAM REPORT ---
*NOTICE TO RECEIVING LIBERTARIAN AGENCY This information is strictly Confidential and protected under [place] law. [place] law prohibits you from making any further disclosure of this information unless further disclosure is expressly permitted by the written consent of the person to whom it pertains or is authorized by law. A general authorization for the release of medical or other information is not sufficient for this purpose. Hospital accepts no responsibility if the information is made available to any other person, INCLUDING THE PATIENT. Interpretation Summary * Name: MEDINA ROBERSON Study Date: 11/01/2017 07:19 AM BP: 128/70 mmHg * Patient Location: .[facility]\S\N287\S\2 HR: 90 * : 1940 (M/d/yyyy) Gender: Female Height: 62 in * Age: 77 yrs Ethnicity: [place] Weight: 130 lb * Ordering Physician: Stephanie Torres * Referring Physician: Self, Referred * Performed By: Laina Liz RDCS * * Reason For Study: Pulmonary hypertension * BSA: 1.6 m2 * -- Conclusions -- * The left ventricle is normal in size. * Left ventricular systolic function is normal. * Ejection Fraction = 60-65%. * The right ventricular systolic function is normal. * The left atrial size is normal. * Right atrial size is normal. * No significant valvular pathology * No evidence of pulmonary hypertension Procedure Details * A complete two-dimensional transthoracic echocardiogram was performed (2D, M-mode, Doppler and color flow Doppler). Left Ventricle * The left ventricle is normal in size. * There is normal left ventricular wall thickness. * Ejection Fraction = 60-65%. * Left ventricular systolic function is normal. * The left ventricular wall motion is normal. Right Ventricle * The right ventricle is normal size. * The right ventricular systolic function is normal. Atria * The left atrial size is normal. * Right atrial size is normal. * No ASD detected; PFO is not assessed. Mitral Valve * The mitral valve anatomy is normal. * Significant mitral regurgitation is absent. Tricuspid Valve * The tricuspid valve is not well visualized, but is grossly normal. * Significant tricuspid regurgitation is absent. Great Vessels * The aortic root and proximal ascending aorta are normal sized. Pericardium/Pleural * There is no pericardial effusion. MMode 2D Measurements and Calculations IVSd 1.1 cm LVIDd 2.8 cm LVIDs 1.8 cm LVPWd 1.2 cm IVS/LVPW 0.95 FS 33.9 % EDV(Teich) 29.0 ml ESV(Teich) 10.2 ml EF(Teich) 64.8 % EDV(cubed) 21.5 ml ESV(cubed) 6.2 ml EF(cubed) 71.2 % LV mass(C)d 95.5 grams LV mass(C)dI 60.0 grams/m\S\2 SV(Teich) 18.8 ml SI(Teich) 11.8 ml/m\S\2 SV(cubed) 15.3 ml SI(cubed) 9.6 ml/m\S\2 ACS 1.5 cm LA dimension 3.0 cm asc Aorta Diam 2.5 cm LVOT diam 2.3 cm LVOT area 4.1 cm\S\2 LVAd ap4 20.6 cm\S\2 LVLd ap4 6.5 cm EDV(MOD-sp4) 53.1 ml EDV(sp4-el) 55.6 ml LVAs ap4 12.5 cm\S\2 LVLs ap4 6.0 cm ESV(MOD-sp4) 21.4 ml ESV(sp4-el) 22.2 ml EF(MOD-sp4) 59.7 % EF(sp4-el) 60.0 % LVAd ap2 19.3 cm\S\2 LVLd ap2 7.0 cm EDV(MOD-sp2) 44.3 ml EDV(sp2-el) 45.6 ml LVAs ap2 11.1 cm\S\2 LVLs ap2 6.1 cm ESV(MOD-sp2) 17.2 ml ESV(sp2-el) 17.2 ml EF(MOD-sp2) 61.0 % EF(sp2-el) 62.4 % LVLd %diff 7.2 % EDV(MOD-bp) 50.1 ml LVLs %diff 1.6 % ESV(MOD-bp) 19.1 ml EF(MOD-bp) 61.9 % SV(MOD-sp4) 31.7 ml SI(MOD-sp4) 19.9 ml/m\S\2 SV(MOD-sp2) 27.0 ml SI(MOD-sp2) 17.0 ml/m\S\2 SV(MOD-bp) 31.0 ml SI(MOD-bp) 19.5 ml/m\S\2 SV(sp4-el) 33.4 ml SI(sp4-el) 21.0 ml/m\S\2 SV(sp2-el) 28.5 ml SI(sp2-el) 17.9 ml/m\S\2 Doppler Measurements and Calculations MV E max abisai 115.4 cm/sec MV A max abisai 127.1 cm/sec MV E/A 0.91 MV V2 max 134.8 cm/sec MV max PG 7.3 mmHg MV V2 mean 80.7 cm/sec MV mean PG 3.1 mmHg MV V2 VTI 42.9 cm MV dec time 0.26 sec Ao V2 max 96.4 cm/sec Ao max PG 3.7 mmHg Ao max PG (full) 0.90 mmHg KINZA(V,A) 3.5 cm\S\2 KINZA(V,D) 3.5 cm\S\2 LV V1 max PG 2.8 mmHg LV V1 max 83.9 cm/sec PA V2 max 76.0 cm/sec PA max PG 2.3 mmHg PA acc slope 532.7 cm/sec\S\2 PA acc time 0.11 sec PA pr(Accel) 31.5 mmHg
[2017-11-01] MEDS: WARFARIN SOD 2.5 MG TAB PO SCH (15:37)
--- NOTE | 2017-11-01 16:36 | PULMONARY PROGRESS NOTE ---
DATE: 11/01/2017 TIME: 4:15 p.m. SUBJECTIVE: The patient is feeling significantly better. She was severely short of breath most of the night last night. She did wear BiPAP starting about 10:30 p.m. She actually left it on until almost noontime today. She states she got up this morning and went to the bathroom and she could tell she was still very much short of breath. For the past hour or so, she feels very good. She is now wearing an OxyMask. She is not coughing much. She is not bringing up any phlegm. OBJECTIVE: GENERAL: The patient appears comfortable. VITAL SIGNS: Temperature is 36.7. There have been no fevers. HEART: The heart rate is 90 beats per minute. The rhythm is regular. There is a blood pressure of 112/86. LUNGS: Auscultation of the lung bartlett reveals mild rales bilaterally. No active wheezing was heard. She was not using accessory muscles today. Oxygen saturation on the OxyMask was 92%. The flow rate is 6 liters. EXTREMITIES: Showed no cyanosis, clubbing or edema. LABORATORY DATA: White count is 10.34. Hemoglobin 13.2. Platelets 341,000. INR is 2.7. Electrolytes show sodium 131, potassium 3.8, chloride 94, and bicarbonate 30. BUN was 22 with a creatinine of 0.69. Magnesium was low at 1.7. ASSESSMENT: 1. Acute respiratory failure with hypoxia and hypercarbia. 2. Chronic obstructive pulmonary disease exacerbation. 3. Hyponatremia. COMMENTS AND RECOMMENDATIONS: The patient is to wear the BiPAP tonight. We need to be careful not to have the mask too tight. She did have some erythema on the bridge of her nose. This was not mentioned in the above physical exam. I would continue the methylprednisolone as those. Tomorrow if she is better, would taper it back some. She is getting neb treatments with levalbuterol and ipratropium every 6 hours. She did have a p.r.n. levalbuterol this morning at 10:28 a.m. Otherwise, would continue with her usual meds.
--- NOTE | 2017-11-01 18:41 | Progress Note ---
Subjective Date of Service: Nov 01, 2017. Subjective Pt evaluation today including: conversation w/ patient, physical exam, lab review, review of studies, review of inpatient medication list Saw/examined the patient in room 287 +shortness of breath, cannot complete full sentences without getting short of breath currently on oxymask States she's still short of breath, still has a cough Problem List Medical Problems: (1) Hyponatremia Status: Acute (2) Hypoxia Status: Chronic (3) SOB (shortness of breath) Status: Acute Review of Systems Constitutional: No fever, No chills Respiratory: + cough, + sputum, + wheezing, + shortness of breath, + dyspnea on exertion, + dyspnea at rest, No hemoptysis Cardiac: No chest pain, No edema, No palpitations Medications Current Inpatient Medications Medications (Trade) Dose Ordered Sig/Liset Route Start Time Stop Time Status Last Admin Dose Admin Acetaminophen (Tylenol Tab) 650 mg Q4H PRN PO 10/31/17 14:15 11/30/17 14:14 11/01/17 11:46 650 MG Al Hydrox/Mg Hydrox/Simethicone (Maalox Max Susp) 15 ml Q4H PRN PO 10/31/17 14:15 11/30/17 14:14 Magnesium Hydroxide (Milk Of Magnesia Susp) 30 ml Q12H PRN PO 10/31/17 14:15 11/30/17 14:14 Ondansetron HCl (Zofran Inj) 4 mg Q6H PRN IV 10/31/17 14:15 11/30/17 14:14 Nitroglycerin (Nitrostat Tab) 0.4 mg UD PRN SL 10/31/17 14:15 11/30/17 14:14 Aspirin (Ecotrin Tab) 81 mg QAM PO 11/01/17 09:00 12/01/17 08:59 11/01/17 08:05 81 MG Polyethylene (Miralax Powder Packet) 17 gm DAILY PRN PO 10/31/17 14:15 11/30/17 14:14 Insulin Glargine (Lantus Solostar Pen) SEE PROTOCOL TEXT BID SC 10/31/17 16:30 11/30/17 16:29 11/01/17 08:10 15 UNITS Glucose (Glucose 40% Gel) 15-30 GRAMS 15 GRAMS... UD PRN PO 10/31/17 14:15 11/30/17 14:14 Glucose (Glucose Chew Tab) 4-8 Tablets 4 Tabl... UD PRN PO 10/31/17 14:15 11/30/17 14:14 Dextrose (Dextrose 50% 50ML Syringe) 25-50ML OF 50% DW IV FOR... UD PRN IV 10/31/17 14:15 11/30/17 14:14 Glucagon (Glucagon Inj) 1 mg UD PRN SQ 10/31/17 14:15 11/30/17 14:14 Miscellaneous Information (Consult Glycemic Management Pharmacy) 1 ea UD PRN N/A 10/31/17 15:08 11/30/17 15:07 Methylprednisolone Sodium Succinate 40 mg/Syringe 0.64 ml @ 1.5 mls/min Q8 IV 10/31/17 22:00 11/30/17 21:59 11/01/17 13:40 1.5 MLS/MIN Doxycycline Hyclate (Vibramycin Cap) 100 mg BID PO 10/31/17 21:00 11/07/17 20:59 11/01/17 08:05 100 MG Ipratropium [place] (Atrovent 0.02% 0.5MG/2.5ML Neb) 0.5 mg Q6RWA INH 10/31/17 15:00 11/30/17 14:59 11/01/17 14:14 0.5 MG Levalbuterol (Xopenex 1.25MG/ 0.5ML Neb) 1.25 mg Q6RWA INH 10/31/17 15:00 11/30/17 14:59 11/01/17 14:14 1.25 MG Insulin Aspart (novoLOG ASPART) SLIDING SCALE ACHS SC 10/31/17 16:30 11/30/17 16:29 11/01/17 17:16 7 UNITS Amlodipine Besylate (Norvasc Tab) 5 mg DAILY PO 11/01/17 09:00 12/01/17 08:59 11/01/17 08:05 5 MG Benzonatate (Tessalon Perles Cap) 100 mg BID PO 10/31/17 21:00 11/30/17 20:59 11/01/17 08:05 100 MG Multivitamins (Multivitamin Tab) 1 tab DAILY PO 11/01/17 09:00 12/01/17 08:59 11/01/17 08:05 1 TAB Sotalol HCl (Betapace Tab) 80 mg Q12 PO 10/31/17 21:00 11/30/17 20:59 11/01/17 08:05 80 MG Warfarin Sodium (Coumadin Tab) 5 mg SuTh@1600 PO 11/02/17 16:00 12/02/17 15:59 Warfarin Sodium (Coumadin Tab) 2.5 mg MoTuWeFrSa@1600 PO 10/31/17 16:00 11/30/17 15:59 11/01/17 15:37 2.5 MG Guaifenesin/ Dextromethorphan (Robitussin-Dm Syrup) 5 ml Q6H PRN PO 10/31/17 15:45 11/30/17 15:44 11/01/17 12:27 5 ML Salmeterol Xinafoate/ Fluticasone (Advair Diskus 500/50 Inh) 1 puff BID INH 10/31/17 16:15 11/30/17 16:14 11/01/17 08:04 1 PUFF Levalbuterol (Xopenex 0.63 Mg/ 3 Ml Neb) 0.63 mg Q3R PRN INH 10/31/17 17:15 11/30/17 17:14 11/01/17 10:28 0.63 MG Objective Vital Signs Date Time Temp Pulse Resp B/P (MAP) Pulse Ox O2 Delivery O2 Flow Rate FiO2 11/01/17 16:00 Oxymask 6.0 11/01/17 15:24 36.7 89 22 92 Room Air 11/01/17 14:14 92 30 92 Mask 6.0 40 11/01/17 12:00 92 Oxymask 6.0 11/01/17 11:32 37.0 86 20 112/86 (95) 92 BiPAP 7.0 11/01/17 10:30 84 93 40 11/01/17 10:28 84 35 93 BiPAP/CPAP 40 11/01/17 08:00 92 Oxymask 6.0 11/01/17 07:32 36.4 80 20 152/78 (102) 95 BiPAP 6.0 11/01/17 06:59 75 24 95 BiPAP/CPAP 40 11/01/17 04:29 Oxymask 6.0 11/01/17 04:00 36.4 89 18 146/90 (108) 95 BiPAP 6.0 11/01/17 01:51 74 90 40 11/01/17 00:08 36.3 90 22 120/71 (87) 93 CPAP 11/01/17 00:00 Oxymask 6.0 10/31/17 22:13 95 93 40 10/31/17 20:40 99 138/74 (95) 93 Oxymask 6.0 10/31/17 20:00 Oxymask 6.0 10/31/17 19:39 36.8 95 18 120/71 (87) 93 Oxymask 6.0 10/31/17 19:13 98 24 96 Mask 6.0 Physical Exam General Appearance: + mild distress, + pertinent finding (cannot complete full sentences without getting short of breath) Respiratory/Chest: + respiratory distress, + decreased breath sounds, + wheezing Cardiovascular: regular rate, rhythm, no edema, no murmur Extremities: normal inspection, no pedal edema Neurologic/Psychiatric: no motor/sensory deficits, alert, normal mood/affect Laboratory Results Last 24 Hours Test 10/31/17 20:23 11/01/17 00:07 11/01/17 04:06 11/01/17 05:21 Bedside Glucose 172 mg/dl 138 mg/dl 163 mg/dl White Blood Count 10.34 K/uL Red Blood Count 4.67 M/uL Hemoglobin 13.2 g/dL Hematocrit 38.9 % Mean Corpuscular Volume 83.3 fL Mean Corpuscular Hemoglobin 28.3 pg Mean Corpuscular Hemoglobin Concent 33.9 g/dl RDW Standard Deviation 44.4 fL RDW Coefficient of Variation 14.7 % Platelet Count 341 K/uL Mean Platelet Volume 10.5 fL Prothrombin Time 27.6 SECONDS Prothromb Time International Ratio 2.7 Sodium Level 131 mmol/L Potassium Level 3.8 mmol/L Chloride Level 94 mmol/L Carbon Dioxide Level 30 mmol/L Anion Gap 7.0 mmol/L Blood Urea Nitrogen 22 mg/dl Creatinine 0.69 mg/dl Est Creatinine Clear Calc Drug Dose 53.2 ml/min Estimated GFR () 96.6 Estimated GFR (Non- 83.4 BUN/Creatinine Ratio 32.1 Random Glucose 155 mg/dl Estimated Average Glucose 154 mg/dl Hemoglobin A1c 7.0 % Calcium Level 9.1 mg/dl Magnesium Level 1.7 mg/dl Test 11/01/17 07:44 11/01/17 12:00 11/01/17 16:41 Bedside Glucose 154 mg/dl 179 mg/dl 197 mg/dl Assessment and Plan This is a 77 year old female with a PMH of severe COPD and chronic respiratory failure on 4L of O2 continuously, DM2, HTN, and paroxysmal atrial fibrillation on long-term anticoagulation presents with worsening shortness of breath Acute on Chronic Hypoxic Respiratory Failure Acute COPD Exacerbation patient presents with worsening shortness of breath requiring bipap initially we have weaned her down to an oxymask, but intermittently using bipap for symptomatic support appreciate pulmonary input continue Solu-medrol doxycycline empirically nebulizers PRN Paroxysmal Atrial Fibrillation on Long-term anticoagulation currently NSR continue sotalol continue Coumadin, INR is 2-3 HTN blood pressure stable continue amlodipine, sotalol DM2 Ha1c = 7.0% insulin sliding scale Lantus dose as per glycemic control pharmacist DVT ppx Coumadin FULL CODE
[2017-11-02] VITALS (12 sets, daily range): BP systolic 145–180; BP diastolic 79–100; PULSE 77–96; TEMP 36.2–36.6; O2SAT 91–96
[2017-11-02] MEDS ORDERED: LISINOPRIL 20 MG TAB PO ONE (04:14)
[2017-11-02] MEDS: METHYLPREDNISOLONE IV 40 MG in SYRINGE 0 ML IV SCH ×3 (05:20→20:46)
[2017-11-02] MEDS: IPRATROPIUM BROMIDE NEB SOLN 0.02% 2.5 ML VIAL INH SCH ×3 (06:58→19:27)
[2017-11-02] MEDS: LEVALBUTEROL 1.25MG/0.5ML NEB INH SCH ×3 (06:58→19:27)
[2017-11-02 07:45] LABS: HEMATOCRIT 42.8 % (37-47); HEMOGLOBIN 14.4 g/dL (12.0-16.0); MEAN CELL VOLUME 83.9 fL (80-100); MEAN CORPUSCULAR HEMOGLOBIN 28.2 pg (25-34); MEAN CORPUSCULAR HGB CONC 33.6 g/dl (32-36); MEAN PLATELET VOLUME 10.9 fL (7.4-10.4); PLATELET COUNT 352 K/uL (130-400); RED CELL DISTRIBUTION WIDTH CV 14.9 % (11.5-14.5); RED CELL DISTRIBUTION WIDTH SD 45.8 fL (36.4-46.3); WHITE BLOOD COUNT 18.38 K/uL (4.8-10.8)
[2017-11-02 07:57] LABS: INR 3.6 (0.9-1.1)
[2017-11-02] MEDS: FLUTICASONE/SALMETEROL (ADVAIR) 500/50 INH 14 PUFF INH SCH ×2 (08:03→20:41)
[2017-11-02] MEDS: SOTALOL HCL 80 MG TAB PO SCH ×2 (08:03→20:40)
[2017-11-02] MEDS: DOXYCYCLINE HYCLATE 100 MG CAP PO SCH ×2 (08:03→20:40)
[2017-11-02] MEDS: BENZONATATE 100MG CAP PO SCH ×2 (08:03→20:40)
[2017-11-02] MEDS: MULTIVITAMIN TAB PO SCH (08:04)
[2017-11-02] MEDS: ASPIRIN 81 MG ECTAB PO SCH (08:04)
[2017-11-02] MEDS: AMLODIPINE BESYLATE 5 MG TAB PO SCH (08:04)
[2017-11-02] MEDS: ACETAMINOPHEN 325 MG TAB PO PRN (08:07)
[2017-11-02] MEDS: INSULIN ASPART 100 UNITS/ML 3 ML PEN SC SCH ×4 (08:08→20:45)
[2017-11-02] MEDS: INSULIN GLARGINE SOLOSTAR 100 UNITS/ML 3 ML PEN SC SCH ×2 (08:10→20:45)
[2017-11-02 08:11] LABS: CALCIUM 9.2 mg/dl (8.5-10.1); CREATININE 0.54 mg/dl (0.60-1.20); POTASSIUM 3.5 mmol/L (3.5-5.1)
[2017-11-02] MEDS ORDERED: NURSING VERBAL MED ORDER ONE (09:45)
[2017-11-02] MEDS ORDERED: COUGH DROP (SUGAR FREE) LOZ 24 LOZ/1 BOX LOZ ONE (09:58)
[2017-11-02] MEDS ORDERED: COUGH DROP (SUGAR FREE) LOZ 24 LOZ/1 BOX LOZ PRN (10:30)
--- NOTE | 2017-11-02 13:48 | Pharmacy Progress Note ---
Pharmacy Glycemic Short Note 2 Date of Service Nov 02, 2017. OUTPATIENT ANTIDIABETIC REGIMEN: * Lantus 12 units SQ daily * Metformin 1,000mg PO BIDM * A1c = 7% on 11/01/17 ASSESSMENT: * 77yo T2DM female with adequate degree of outpatient control per recent A1c * Pt admitted with SOB and initiated on IV high dose RTC Solumedrol + abx * Severe hyperglycemia likely to result from steroids despite adequate outpatient control. * Stressed outpatient insulin dosing of Lantus and using weight based/high stress NovoLog scale ACHS while metformin on hold. * Pt has received 51 units of insulin over the past 24hrs * 11/01/17 BSGs: 154, 179, 197, 246 * 11/02/17 BSGs: 153, 180 * AM fasting BSG is slightly above target range but hesitant to increase Lantus further since current dosing is 2x outpatient dosing. If AM fasting BSG trends upwards 11/03/17 will increase dose but for now dosing is adequate * Post-prandial BSGs are elevated/rise throughout the day. Will tighten CR PLAN FOR INPATIENT GLYCEMIC CONTROL: * Holding outpatient oral diabetes medications * Use NovoLog instead * Basal insulin (weight and stress 3, this is double outpatient dose so we will need to taper at the same time as steroid dose taper) * Lantus 15 units SQ BID * Bolus insulin: tighten CR today * NovoLog per scale ACHS or Q6hrs while NPO * Goal Range: Low 110 mg/dL - High 140 mg/dL * Correction Factor: 25 mg/dL/unit * Nutritional / Prandial insulin per carb ratio of 1 unit per 8 grams CHO consumed
--- NOTE | 2017-11-02 14:01 | Progress Note ---
Subjective Date of Service: Nov 02, 2017. Subjective Pt evaluation today including: conversation w/ patient, physical exam, lab review, review of studies, conversation w/ network relations consultant, review of inpatient medication list Saw/examined the patient in room 287 continues to have shortness of breath, worsening with exertion denies fevers/chills, denies chest pain/palpitations Problem List Medical Problems: (1) Hyponatremia Status: Acute (2) Hypoxia Status: Chronic (3) SOB (shortness of breath) Status: Acute Review of Systems Constitutional: No fever, No chills Respiratory: + cough, + wheezing, + shortness of breath, + dyspnea on exertion , + dyspnea at rest, No sputum, No hemoptysis Cardiac: No chest pain, No edema, No palpitations Medications Current Inpatient Medications Medications (Trade) Dose Ordered Sig/Liset Route Start Time Stop Time Status Last Admin Dose Admin Acetaminophen (Tylenol Tab) 650 mg Q4H PRN PO 10/31/17 14:15 11/30/17 14:14 11/02/17 08:07 650 MG Al Hydrox/Mg Hydrox/Simethicone (Maalox Max Susp) 15 ml Q4H PRN PO 10/31/17 14:15 11/30/17 14:14 Magnesium Hydroxide (Milk Of Magnesia Susp) 30 ml Q12H PRN PO 10/31/17 14:15 11/30/17 14:14 Ondansetron HCl (Zofran Inj) 4 mg Q6H PRN IV 10/31/17 14:15 11/30/17 14:14 Nitroglycerin (Nitrostat Tab) 0.4 mg UD PRN SL 10/31/17 14:15 11/30/17 14:14 Aspirin (Ecotrin Tab) 81 mg QAM PO 11/01/17 09:00 12/01/17 08:59 11/02/17 08:04 81 MG Polyethylene (Miralax Powder Packet) 17 gm DAILY PRN PO 10/31/17 14:15 11/30/17 14:14 Glucose (Glucose 40% Gel) 15-30 GRAMS 15 GRAMS... UD PRN PO 10/31/17 14:15 11/30/17 14:14 Glucose (Glucose Chew Tab) 4-8 Tablets 4 Tabl... UD PRN PO 10/31/17 14:15 11/30/17 14:14 Dextrose (Dextrose 50% 50ML Syringe) 25-50ML OF 50% DW IV FOR... UD PRN IV 10/31/17 14:15 11/30/17 14:14 Glucagon (Glucagon Inj) 1 mg UD PRN SQ 10/31/17 14:15 11/30/17 14:14 Miscellaneous Information (Consult Glycemic Management Pharmacy) 1 ea UD PRN N/A 10/31/17 15:08 11/30/17 15:07 Methylprednisolone Sodium Succinate 40 mg/Syringe 0.64 ml @ 1.5 mls/min Q8 IV 10/31/17 22:00 11/30/17 21:59 11/02/17 13:11 1.5 MLS/MIN Doxycycline Hyclate (Vibramycin Cap) 100 mg BID PO 10/31/17 21:00 11/07/17 20:59 11/02/17 08:03 100 MG Ipratropium [place] (Atrovent 0.02% 0.5MG/2.5ML Neb) 0.5 mg Q6RWA INH 10/31/17 15:00 11/30/17 14:59 11/02/17 06:58 0.5 MG Levalbuterol (Xopenex 1.25MG/ 0.5ML Neb) 1.25 mg Q6RWA INH 10/31/17 15:00 11/30/17 14:59 11/02/17 06:58 1.25 MG Insulin Aspart (novoLOG ASPART) SLIDING SCALE ACHS SC 10/31/17 16:30 11/30/17 16:29 11/02/17 13:11 6 UNITS Amlodipine Besylate (Norvasc Tab) 5 mg DAILY PO 11/01/17 09:00 12/01/17 08:59 11/02/17 08:04 5 MG Benzonatate (Tessalon Perles Cap) 100 mg BID PO 10/31/17 21:00 11/30/17 20:59 11/02/17 08:03 100 MG Multivitamins (Multivitamin Tab) 1 tab DAILY PO 11/01/17 09:00 12/01/17 08:59 11/02/17 08:04 1 TAB Sotalol HCl (Betapace Tab) 80 mg Q12 PO 10/31/17 21:00 11/30/17 20:59 11/02/17 08:03 80 MG Warfarin Sodium (Coumadin Tab) 5 mg SuTh@1600 PO 11/02/17 16:00 12/02/17 15:59 Future hold Warfarin Sodium (Coumadin Tab) 2.5 mg MoTuWeFrSa@1600 PO 10/31/17 16:00 11/30/17 15:59 11/01/17 15:37 2.5 MG Guaifenesin/ Dextromethorphan (Robitussin-Dm Syrup) 5 ml Q6H PRN PO 10/31/17 15:45 11/30/17 15:44 11/01/17 12:27 5 ML Salmeterol Xinafoate/ Fluticasone (Advair Diskus 500/50 Inh) 1 puff BID INH 10/31/17 16:15 11/30/17 16:14 11/02/17 08:03 1 PUFF Levalbuterol (Xopenex 0.63 Mg/ 3 Ml Neb) 0.63 mg Q3R PRN INH 10/31/17 17:15 11/30/17 17:14 11/01/17 10:28 0.63 MG Lisinopril (Zestril Tab) 20 mg QAM PO 11/03/17 09:00 12/03/17 08:59 Menthol (Nice Aurelia) 1 aurelia PRN PRN AURELIA 11/02/17 10:30 12/02/17 10:29 Insulin Glargine (Lantus Solostar Pen) 15 units BID SC 11/02/17 21:00 12/02/17 20:59 Objective Vital Signs Date Time Temp Pulse Resp B/P (MAP) Pulse Ox O2 Delivery O2 Flow Rate FiO2 11/02/17 12:00 91 Nasal Cannula 5.0 Oxymask 11/02/17 11:34 36.5 82 22 170/81 (110) 91 Oxymask 6.0 11/02/17 08:00 93 Oxymask 6.0 11/02/17 07:19 36.2 84 18 145/91 (109) 93 Nasal Cannula 6.0 11/02/17 06:58 87 20 93 Mask 6.0 11/02/17 05:18 80 173/90 (117) 11/02/17 04:00 36.4 77 20 172/79 (110) 93 Oxymask 6.0 11/02/17 04:00 Oxymask 6.0 11/02/17 00:00 BiPAP 6.0 11/01/17 23:30 36.4 79 20 167/85 (112) 92 BiPAP 6.0 11/01/17 22:08 86 92 40 11/01/17 20:00 36.8 92 20 156/74 (101) 94 Oxymask 6.0 11/01/17 20:00 Oxymask 6.0 11/01/17 19:05 91 20 94 Mask 6.0 11/01/17 16:00 Oxymask 6.0 11/01/17 15:24 36.7 89 22 151/74 (99) 92 Oxymask 6.0 11/01/17 14:14 92 30 92 Mask 6.0 40 Physical Exam General Appearance: no apparent distress ENT: hearing grossly normal Respiratory/Chest: lungs clear, no respiratory distress, no accessory muscle use, + decreased breath sounds Cardiovascular: regular rate, rhythm, no edema, no murmur Extremities: normal inspection, no pedal edema Neurologic/Psychiatric: no motor/sensory deficits, alert, normal mood/affect Laboratory Results Last 24 Hours Test 11/01/17 16:41 11/01/17 20:25 11/02/17 06:51 11/02/17 07:44 Bedside Glucose 197 mg/dl 246 mg/dl 153 mg/dl White Blood Count 18.38 K/uL Red Blood Count 5.10 M/uL Hemoglobin 14.4 g/dL Hematocrit 42.8 % Mean Corpuscular Volume 83.9 fL Mean Corpuscular Hemoglobin 28.2 pg Mean Corpuscular Hemoglobin Concent 33.6 g/dl RDW Standard Deviation 45.8 fL RDW Coefficient of Variation 14.9 % Platelet Count 352 K/uL Mean Platelet Volume 10.9 fL Prothrombin Time 36.5 SECONDS Prothromb Time International Ratio 3.6 Sodium Level 137 mmol/L Potassium Level 3.5 mmol/L Chloride Level 98 mmol/L Carbon Dioxide Level 33 mmol/L Anion Gap 5.0 mmol/L Blood Urea Nitrogen 20 mg/dl Creatinine 0.54 mg/dl Est Creatinine Clear Calc Drug Dose 67.9 ml/min Estimated GFR () 104.8 Estimated GFR (Non- 90.4 BUN/Creatinine Ratio 36.8 Random Glucose 143 mg/dl Calcium Level 9.2 mg/dl Magnesium Level 2.4 mg/dl Assessment and Plan This is a 77 year old female with a PMH of severe COPD and chronic respiratory failure on 4L of O2 continuously, DM2, HTN, and paroxysmal atrial fibrillation on long-term anticoagulation presents with worsening shortness of breath Acute on Chronic Hypoxic Respiratory Failure Acute COPD Exacerbation 3 for now, will continue Solu-medrol and oxymask doxycycline empirically continue nebulizers as needed will taper steroids once she is feeling better 3/ patient presents with worsening shortness of breath requiring bipap initially we have weaned her down to an oxymask, but intermittently using bipap for symptomatic support appreciate pulmonary input continue Solu-medrol doxycycline empirically nebulizers PRN Paroxysmal Atrial Fibrillation on Long-term anticoagulation currently NSR continue sotalol continue Coumadin, INR is 2-3 HTN blood pressure stable continue amlodipine, sotalol DM2 Ha1c = 7.0% insulin sliding scale Lantus dose as per glycemic control pharmacist DVT ppx Coumadin FULL CODE
--- NOTE | 2017-11-02 14:19 | PULMONARY PROGRESS NOTE ---
DATE: 11/02/2017 TIME: 2:00 p.m. SUBJECTIVE: The patient is still quite short of breath. I do think the patient tended to minimize her symptoms. She is still coughing, but without much phlegm. She certainly is much better than she was 2 nights ago but probably she is not much changed from yesterday. Even at rest, she seems to be somewhat dyspneic. Her family was with her during this evaluation. OBJECTIVE: VITAL SIGNS: Temperature was 36.5, heart rate was 82 beats per minute. The rhythm is regular. Blood pressure is elevated at 170/81. CHEST: Reveals some kyphosis. The breath sounds are diffusely diminished. Her respiratory rate was 24 breaths per minute at the time of my exam. She is still on an OxyMask at 5 liters with saturations 91%. EXTREMITIES: Showed no cyanosis, clubbing or edema. IMAGING DATA: The patient had an echocardiogram done that was not showing any significant abnormalities. LABORATORY DATA: White count today is 18.38. This is increased from yesterday when it was 10.34. I suspect this may be due to the steroids. Platelets are 352,000. INR today is 3.6. Electrolytes show sodium 137, potassium 3.5, chloride 98, and bicarbonate 33. BUN was 20 with a creatinine of 0.54. IMPRESSIONS: 1. Acute on chronic respiratory failure with hypoxia and hypercarbia. 2. Chronic obstructive pulmonary disease exacerbation. 3. Hyponatremia. COMMENTS AND RECOMMENDATIONS: The patient is slow to improve. In light of this, I likely would still continue the methylprednisolone at 40 mg IV q. 8 and if she is better tomorrow, then start to taper it back. She is on the doxycycline orally which is fine. She does not have an infiltrate. She did not cough during my exam. She is getting the levalbuterol/ipratropium every 6 hours and she has a p.r.n. levalbuterol if need be. It does not appear she got an extra treatment today. Her blood gas done back on the did show significant hypercarbia. Case was discussed with Dr. Rojas. The pulmonary service changes as of tomorrow. We will sign off for now, but please feel free to call if any assistance is needed. Thank you for asking me to assist in her care.
[2017-11-02] MEDS ORDERED: AMLODIPINE BESYLATE 5 MG TAB PO ONE (23:58)
[2017-11-03] VITALS (11 sets, daily range): BP systolic 154–177; BP diastolic 66–93; PULSE 63–108; TEMP 36.3–36.8; O2SAT 86–95; BMI 21.3
[2017-11-03 06:03] LABS: MEAN CELL VOLUME 84.4 fL (80-100); MEAN CORPUSCULAR HEMOGLOBIN 28.1 pg (25-34); MEAN CORPUSCULAR HGB CONC 33.3 g/dl (32-36); MEAN PLATELET VOLUME 10.6 fL (7.4-10.4); PLATELET COUNT 356 K/uL (130-400); RED CELL DISTRIBUTION WIDTH CV 14.9 % (11.5-14.5); WHITE BLOOD COUNT 16.94 K/uL (4.8-10.8)
[2017-11-03 06:24] LABS: INR 2.9 (0.9-1.1)
[2017-11-03] MEDS: METHYLPREDNISOLONE IV 40 MG in SYRINGE 0 ML IV SCH ×3 (06:40→21:40)
[2017-11-03] MEDS: LEVALBUTEROL 1.25MG/0.5ML NEB INH SCH ×3 (07:02→19:06)
[2017-11-03] MEDS: IPRATROPIUM BROMIDE NEB SOLN 0.02% 2.5 ML VIAL INH SCH ×3 (07:02→19:06)
[2017-11-03] MEDS: ASPIRIN 81 MG ECTAB PO SCH (08:05)
[2017-11-03] MEDS: MULTIVITAMIN TAB PO SCH (08:05)
[2017-11-03] MEDS: LISINOPRIL 20 MG TAB PO SCH (08:05)
[2017-11-03] MEDS: FLUTICASONE/SALMETEROL (ADVAIR) 500/50 INH 14 PUFF INH SCH ×2 (08:05→21:01)
[2017-11-03] MEDS: SOTALOL HCL 80 MG TAB PO SCH ×2 (08:05→21:00)
[2017-11-03] MEDS: DOXYCYCLINE HYCLATE 100 MG CAP PO SCH ×2 (08:05→21:00)
[2017-11-03] MEDS: BENZONATATE 100MG CAP PO SCH ×2 (08:05→21:00)
[2017-11-03] MEDS: INSULIN ASPART 100 UNITS/ML 3 ML PEN SC SCH ×4 (08:07→20:56)
[2017-11-03] MEDS: INSULIN GLARGINE SOLOSTAR 100 UNITS/ML 3 ML PEN SC SCH ×3 (08:08→20:56)
[2017-11-03] MEDS ORDERED: AMLODIPINE BESYLATE 5 MG TAB PO SCH (09:00)
--- NOTE | 2017-11-03 12:52 | Pharmacy Progress Note ---
Pharmacy Glycemic Short Note 2 Date of Service Nov 03, 2017. OUTPATIENT ANTIDIABETIC REGIMEN: * Lantus 12 units SQ daily * Metformin 1,000mg PO BIDM * A1c = 7% on 11/01/17 ASSESSMENT: * Ms Rodriguez is a 77 y/o F with a PMH of severe COPD, HTN, Afib on warfarin, and well controlled type 2 diabetes (goal HbA1C according to the Elements of Diabetes Care Scoring Scale is 6.6-7.5%) who presents with shortness of breath and COPD exacerbation. The patient was initiated on IV high dose RTC Solumedrol + abx. Severe hyperglycemia likely to result from steroids despite adequate outpatient control. Initially patient placed on weight-based stress of 3 for Lantus and Novolog. * Yesterday's blood sugars were [phone] and today's fasting blood sugar was 116 mg/dL (decreased from yesterday's fasting of 153 mg/dL). Secondary to concern for downwards trend of fasting blood sugars, created scale of Lantus with weight-based stress of 2 and stress of 3 dosing. Also note that the majority of the patient's insulin dose is basal (66% for basal, 33% of bolus and with steroids typically want 40% basal and 60% bolus) Expect with decrease of steroids to decrease Lantus. If oral prednisone ordered, can decrease Lantus to home dose and add once daily NPH as is most favorably mimics the pharmacokinetics of prednisone. * For Novolog, the patient's blood sugars appeared reasonably well controlled with slight spikes after being within goal range. Expect that carbohydrate coverage is not sufficient. With trend upwards at lunch, tightened both correction factor and carbohydrate ratio. PLAN FOR INPATIENT GLYCEMIC CONTROL: * Holding outpatient oral diabetes medications * Use NovoLog instead * Basal insulin - beginning to taper * Lantus 10-15 units SQ BID (Lantus 10 units if blood sugar less than 140 mg/dL ) * Bolus insulin: tighten CF/CR today * NovoLog per scale ACHS or Q6hrs while NPO * Goal Range: Low 110 mg/dL - High 140 mg/dL * Correction Factor: 20 mg/dL/unit * Nutritional / Prandial insulin per carb ratio of 1 unit per 6 grams CHO consumed
--- NOTE | 2017-11-03 14:54 | Progress Note ---
Subjective Date of Service: Nov 03, 2017. Subjective Pt evaluation today including: conversation w/ patient, conversation w/ family , physical exam, lab review, review of studies, review of inpatient medication list Saw/examined the patient in room 287 continues to be really short of breath loses her breath with exertion and cannot complete full sentences without getting short of breath currently on oxymask states she cannot tolerate bipap Problem List Medical Problems: (1) Hyponatremia Status: Acute (2) Hypoxia Status: Chronic (3) SOB (shortness of breath) Status: Acute Review of Systems Respiratory: + cough, + sputum, + wheezing, + shortness of breath, + dyspnea on exertion, + dyspnea at rest, No hemoptysis Cardiac: No chest pain, No edema, No palpitations Medications Current Inpatient Medications Medications (Trade) Dose Ordered Sig/Liset Route Start Time Stop Time Status Last Admin Dose Admin Acetaminophen (Tylenol Tab) 650 mg Q4H PRN PO 10/31/17 14:15 11/30/17 14:14 11/02/17 08:07 650 MG Al Hydrox/Mg Hydrox/Simethicone (Maalox Max Susp) 15 ml Q4H PRN PO 10/31/17 14:15 11/30/17 14:14 Magnesium Hydroxide (Milk Of Magnesia Susp) 30 ml Q12H PRN PO 10/31/17 14:15 11/30/17 14:14 Ondansetron HCl (Zofran Inj) 4 mg Q6H PRN IV 10/31/17 14:15 11/30/17 14:14 Nitroglycerin (Nitrostat Tab) 0.4 mg UD PRN SL 10/31/17 14:15 11/30/17 14:14 Aspirin (Ecotrin Tab) 81 mg QAM PO 11/01/17 09:00 12/01/17 08:59 11/03/17 08:05 81 MG Polyethylene (Miralax Powder Packet) 17 gm DAILY PRN PO 10/31/17 14:15 11/30/17 14:14 Glucose (Glucose 40% Gel) 15-30 GRAMS 15 GRAMS... UD PRN PO 10/31/17 14:15 11/30/17 14:14 Glucose (Glucose Chew Tab) 4-8 Tablets 4 Tabl... UD PRN PO 10/31/17 14:15 11/30/17 14:14 Dextrose (Dextrose 50% 50ML Syringe) 25-50ML OF 50% DW IV FOR... UD PRN IV 10/31/17 14:15 11/30/17 14:14 Glucagon (Glucagon Inj) 1 mg UD PRN SQ 10/31/17 14:15 11/30/17 14:14 Miscellaneous Information (Consult Glycemic Management Pharmacy) 1 ea UD PRN N/A 10/31/17 15:08 11/30/17 15:07 Methylprednisolone Sodium Succinate 40 mg/Syringe 0.64 ml @ 1.5 mls/min Q8 IV 10/31/17 22:00 11/30/17 21:59 11/03/17 13:58 1.5 MLS/MIN Doxycycline Hyclate (Vibramycin Cap) 100 mg BID PO 10/31/17 21:00 11/07/17 20:59 11/03/17 08:05 100 MG Ipratropium [place] (Atrovent 0.02% 0.5MG/2.5ML Neb) 0.5 mg Q6RWA INH 10/31/17 15:00 11/30/17 14:59 11/03/17 14:09 0.5 MG Levalbuterol (Xopenex 1.25MG/ 0.5ML Neb) 1.25 mg Q6RWA INH 10/31/17 15:00 11/30/17 14:59 11/03/17 14:09 1.25 MG Insulin Aspart (novoLOG ASPART) SLIDING SCALE ACHS SC 10/31/17 16:30 11/30/17 16:29 11/03/17 12:06 7 UNITS Benzonatate (Tessalon Perles Cap) 100 mg BID PO 10/31/17 21:00 11/30/17 20:59 11/03/17 08:05 100 MG Multivitamins (Multivitamin Tab) 1 tab DAILY PO 11/01/17 09:00 12/01/17 08:59 11/03/17 08:05 1 TAB Sotalol HCl (Betapace Tab) 80 mg Q12 PO 10/31/17 21:00 11/30/17 20:59 11/03/17 08:05 80 MG Warfarin Sodium (Coumadin Tab) 5 mg SuTh@1600 PO 11/02/17 16:00 12/02/17 15:59 Future hold Warfarin Sodium (Coumadin Tab) 2.5 mg MoTuWeFrSa@1600 PO 10/31/17 16:00 11/30/17 15:59 11/01/17 15:37 2.5 MG Guaifenesin/ Dextromethorphan (Robitussin-Dm Syrup) 5 ml Q6H PRN PO 10/31/17 15:45 11/30/17 15:44 11/01/17 12:27 5 ML Salmeterol Xinafoate/ Fluticasone (Advair Diskus 500/50 Inh) 1 puff BID INH 10/31/17 16:15 11/30/17 16:14 11/03/17 08:05 1 PUFF Levalbuterol (Xopenex 0.63 Mg/ 3 Ml Neb) 0.63 mg Q3R PRN INH 10/31/17 17:15 11/30/17 17:14 11/01/17 10:28 0.63 MG Lisinopril (Zestril Tab) 20 mg QAM PO 11/03/17 09:00 12/03/17 08:59 11/03/17 08:05 20 MG Menthol (Nice Aurelia) 1 aurelia PRN PRN AURELIA 11/02/17 10:30 12/02/17 10:29 Amlodipine Besylate (Norvasc Tab) 10 mg DAILY PO 11/04/17 09:00 12/01/17 08:59 Insulin Glargine (Lantus Solostar Pen) SEE PROTOCOL TEXT BID SC 11/03/17 09:00 12/03/17 08:59 Objective Vital Signs Date Time Temp Pulse Resp B/P (MAP) Pulse Ox O2 Delivery O2 Flow Rate FiO2 11/03/17 14:10 87 20 89 Mask 6.0 11/03/17 11:54 36.5 95 20 159/80 (106) 91 6.0 11/03/17 11:45 Oxymask 6.0 11/03/17 07:56 36.8 87 18 156/81 (106) 92 Room Air 11/03/17 07:30 Oxymask 6.0 11/03/17 07:02 91 20 92 Mask 6.0 11/03/17 04:00 36.6 85 18 170/84 (112) 91 Oxymask 6.0 11/03/17 04:00 Oxymask 6.0 11/03/17 02:51 36.3 80 19 177/93 (121) 95 Nasal Cannula 6.0 Free Flow/Blowby 11/03/17 00:42 82 166/89 (114) 94 Oxymask 6.0 11/03/17 00:00 Oxymask 6.0 11/02/17 23:36 36.5 82 19 180/100 (126) 92 Room Air 11/02/17 20:21 36.5 96 20 176/87 (116) 94 Oxymask 6.0 11/02/17 20:00 Oxymask 6.0 11/02/17 19:27 91 20 96 Mask 6.0 11/02/17 16:00 Oxymask 6.0 11/02/17 15:31 36.6 94 22 166/82 (110) 93 Oxymask 6.0 Physical Exam General Appearance: no apparent distress Respiratory/Chest: no respiratory distress, no accessory muscle use, + decreased breath sounds, + wheezing (mild end expiratory wheezing) Extremities: normal inspection, no pedal edema Neurologic/Psychiatric: no motor/sensory deficits, alert, normal mood/affect Laboratory Results Last 24 Hours Test 11/02/17 16:26 11/02/17 20:39 11/03/17 05:23 11/03/17 07:43 Bedside Glucose 128 mg/dl 187 mg/dl 116 mg/dl White Blood Count 16.94 K/uL Red Blood Count 5.33 M/uL Hemoglobin 15.0 g/dL Hematocrit 45.0 % Mean Corpuscular Volume 84.4 fL Mean Corpuscular Hemoglobin 28.1 pg Mean Corpuscular Hemoglobin Concent 33.3 g/dl RDW Standard Deviation 46.0 fL RDW Coefficient of Variation 14.9 % Platelet Count 356 K/uL Mean Platelet Volume 10.6 fL Prothrombin Time 30.3 SECONDS Prothromb Time International Ratio 2.9 Magnesium Level 2.3 mg/dl Test 11/03/17 11:24 Bedside Glucose 239 mg/dl Assessment and Plan This is a 77 year old female with a PMH of severe COPD and chronic respiratory failure on 4L of O2 continuously, DM2, HTN, and paroxysmal atrial fibrillation on long-term anticoagulation presents with worsening shortness of breath Acute on Chronic Hypoxic Respiratory Failure Acute COPD Exacerbation 11/03 she is still significantly short of breath at this point, we must continue Solu-medrol, doxycycline, oxymask would benefit from bipap, but she cannot tolerate it continue nebs as needed 11/02 for now, will continue Solu-medrol and oxymask doxycycline empirically continue nebulizers as needed will taper steroids once she is feeling better 11/01 patient presents with worsening shortness of breath requiring bipap initially we have weaned her down to an oxymask, but intermittently using bipap for symptomatic support appreciate pulmonary input continue Solu-medrol doxycycline empirically nebulizers PRN Paroxysmal Atrial Fibrillation on Long-term anticoagulation currently NSR continue sotalol continue Coumadin, INR is 2-3 HTN blood pressure stable continue amlodipine, sotalol DM2 Ha1c = 7.0% insulin sliding scale Lantus dose as per glycemic control pharmacist DVT ppx Coumadin FULL CODE
[2017-11-03] MEDS: WARFARIN SOD 2.5 MG TAB PO SCH (15:34)
[2017-11-04] VITALS (13 sets, daily range): BP systolic 126–182; BP diastolic 73–98; PULSE 79–109; TEMP 36.3–36.8; O2SAT 80–95
[2017-11-04] MEDS: METHYLPREDNISOLONE IV 40 MG in SYRINGE 0 ML IV SCH ×2 (05:47→17:45)
[2017-11-04 07:09] LABS: HEMATOCRIT 44.4 % (37-47); HEMOGLOBIN 14.7 g/dL (12.0-16.0); MEAN CELL VOLUME 84.4 fL (80-100); MEAN CORPUSCULAR HEMOGLOBIN 27.9 pg (25-34); MEAN CORPUSCULAR HGB CONC 33.1 g/dl (32-36); MEAN PLATELET VOLUME 11.2 fL (7.4-10.4); PLATELET COUNT 356 K/uL (130-400); RED CELL DISTRIBUTION WIDTH CV 14.9 % (11.5-14.5); RED CELL DISTRIBUTION WIDTH SD 45.8 fL (36.4-46.3); WHITE BLOOD COUNT 13.81 K/uL (4.8-10.8)
[2017-11-04 07:16] LABS: INR 2.7 (0.9-1.1)
[2017-11-04] MEDS: IPRATROPIUM BROMIDE NEB SOLN 0.02% 2.5 ML VIAL INH SCH ×3 (07:26→19:08)
[2017-11-04] MEDS: LEVALBUTEROL 1.25MG/0.5ML NEB INH SCH ×3 (07:26→19:08)
[2017-11-04 07:43] LABS: CALCIUM 9.1 mg/dl (8.5-10.1); CREATININE 0.6 mg/dl (0.60-1.20); POTASSIUM 3.6 mmol/L (3.5-5.1)
--- NOTE | 2017-11-04 08:09 | Progress Note ---
Medicine Progress Note Date & Time of Visit: Nov 04, 2017 at 08:02. Subjective seen sitting up in bed with 6 L O2 via nasal cannula comfortable, pleasant states breathing is slightly better than yesterday dry cough improving denies chest pain, palpitations, dizziness transfers from bed to commode with no problems denies other symptoms Objective Last 8 Hrs Date Time Temp Pulse Resp B/P (MAP) Pulse Ox O2 Delivery O2 Flow Rate FiO2 11/04/17 07:43 36.7 96 18 179/98 (125) 91 6.0 11/04/17 07:26 94 20 89 Nasal Cannula 6.0 11/04/17 05:00 79 18 181/90 (120) 93 Oxymask 6.0 11/04/17 04:00 Oxymask 6.0 Physical Exam: General- oriented x 3, not in distress, speaks in sentences with some effort, no accessory muscle use Head- atraumatic Eyes- PERRL, EOMI, anicteric ENT- oropharynx clear Neck- supple, no JVD, no adenopathy, no thyromegaly Lungs- somewhat distant but clear, no rales/ no wheezes Heart- regular rhythm; no murmur, normal rate Abdomen- normal bowel sounds, soft, nontender, no masses Extremities- no pretibial edema, no calf tenderness; peripheral pulses intact Neuro- alert, oriented x 3; no gross focal neurologic deficits Skin- warm & dry Laboratory Results: Last 24 Hours Test 11/03/17 11:24 11/03/17 16:21 11/03/17 20:30 11/04/17 06:08 Bedside Glucose 239 mg/dl 125 mg/dl 215 mg/dl White Blood Count 13.81 K/uL Red Blood Count 5.26 M/uL Hemoglobin 14.7 g/dL Hematocrit 44.4 % Mean Corpuscular Volume 84.4 fL Mean Corpuscular Hemoglobin 27.9 pg Mean Corpuscular Hemoglobin Concent 33.1 g/dl RDW Standard Deviation 45.8 fL RDW Coefficient of Variation 14.9 % Platelet Count 356 K/uL Mean Platelet Volume 11.2 fL Prothrombin Time 27.6 SECONDS Prothromb Time International Ratio 2.7 Sodium Level 135 mmol/L Potassium Level 3.6 mmol/L Chloride Level 98 mmol/L Carbon Dioxide Level 34 mmol/L Anion Gap 3.0 mmol/L Blood Urea Nitrogen 30 mg/dl Creatinine 0.60 mg/dl Est Creatinine Clear Calc Drug Dose 61.1 ml/min Estimated GFR () 101.2 Estimated GFR (Non- 87.3 BUN/Creatinine Ratio 49.7 Random Glucose 135 mg/dl Calcium Level 9.1 mg/dl Magnesium Level 2.3 mg/dl Test 11/04/17 07:23 Bedside Glucose 154 mg/dl Assessment & Plan This is a 77 year old female with a PMH of severe COPD and chronic respiratory failure on 4L of O2 continuously, DM2, HTN, and paroxysmal atrial fibrillation on long-term anticoagulation presents with worsening shortness of breath Acute on Chronic Hypoxic Respiratory Failure Secondary to Acute COPD Exacerbation likely from Acute Bronchitis - CXR: no acute findings Flu PCR: negative - slow improvement still at 6L via NC - continue Solumedrol 40mg TID, possible taper to BID today continue Doxy, Nebs q6h will re-consult Pulmonary Paroxysmal Atrial Fibrillation on Long-term anticoagulation currently NSR continue sotalol continue Coumadin, INR is 2-3 HTN BP elevated, likely from IV steroids increase Amlodipine to 10mg po daily may increase Lisinopril to 20mg po BID if still uncontrolled DM2 Ha1c = 7.0% insulin sliding scale Lantus dose as per glycemic control pharmacist DVT ppx Coumadin FULL CODE Disposition anticipate d/c home when stable, cleared by Pulmonary PCP ff up with Dr. Leone Pulmonary ff up Current Inpatient Medications: Current Inpatient Medications Medications (Trade) Dose Ordered Sig/Liset Route Start Time Stop Time Status Last Admin Dose Admin Acetaminophen (Tylenol Tab) 650 mg Q4H PRN PO 10/31/17 14:15 11/30/17 14:14 11/02/17 08:07 650 MG Al Hydrox/Mg Hydrox/Simethicone (Maalox Max Susp) 15 ml Q4H PRN PO 10/31/17 14:15 11/30/17 14:14 Magnesium Hydroxide (Milk Of Magnesia Susp) 30 ml Q12H PRN PO 10/31/17 14:15 11/30/17 14:14 Ondansetron HCl (Zofran Inj) 4 mg Q6H PRN IV 10/31/17 14:15 11/30/17 14:14 Nitroglycerin (Nitrostat Tab) 0.4 mg UD PRN SL 10/31/17 14:15 11/30/17 14:14 Aspirin (Ecotrin Tab) 81 mg QAM PO 11/01/17 09:00 12/01/17 08:59 11/03/17 08:05 81 MG Polyethylene (Miralax Powder Packet) 17 gm DAILY PRN PO 10/31/17 14:15 11/30/17 14:14 Glucose (Glucose 40% Gel) 15-30 GRAMS 15 GRAMS... UD PRN PO 10/31/17 14:15 11/30/17 14:14 Glucose (Glucose Chew Tab) 4-8 Tablets 4 Tabl... UD PRN PO 10/31/17 14:15 11/30/17 14:14 Dextrose (Dextrose 50% 50ML Syringe) 25-50ML OF 50% DW IV FOR... UD PRN IV 10/31/17 14:15 11/30/17 14:14 Glucagon (Glucagon Inj) 1 mg UD PRN SQ 10/31/17 14:15 11/30/17 14:14 Miscellaneous Information (Consult Glycemic Management Pharmacy) 1 ea UD PRN N/A 10/31/17 15:08 11/30/17 15:07 Methylprednisolone Sodium Succinate 40 mg/Syringe 0.64 ml @ 1.5 mls/min Q8 IV 10/31/17 22:00 11/30/17 21:59 11/04/17 05:47 1.5 MLS/MIN Doxycycline Hyclate (Vibramycin Cap) 100 mg BID PO 10/31/17 21:00 11/07/17 20:59 11/03/17 21:00 100 MG Ipratropium [place] (Atrovent 0.02% 0.5MG/2.5ML Neb) 0.5 mg Q6RWA INH 10/31/17 15:00 11/30/17 14:59 11/04/17 07:26 0.5 MG Levalbuterol (Xopenex 1.25MG/ 0.5ML Neb) 1.25 mg Q6RWA INH 10/31/17 15:00 11/30/17 14:59 11/04/17 07:26 1.25 MG Insulin Aspart (novoLOG ASPART) SLIDING SCALE ACHS SC 10/31/17 16:30 11/30/17 16:29 11/03/17 20:56 4 UNITS Benzonatate (Tessalon Perles Cap) 100 mg BID PO 10/31/17 21:00 11/30/17 20:59 11/03/17 21:00 100 MG Multivitamins (Multivitamin Tab) 1 tab DAILY PO 11/01/17 09:00 12/01/17 08:59 11/03/17 08:05 1 TAB Sotalol HCl (Betapace Tab) 80 mg Q12 PO 10/31/17 21:00 11/30/17 20:59 11/03/17 21:00 80 MG Warfarin Sodium (Coumadin Tab) 5 mg SuTh@1600 PO 11/02/17 16:00 12/02/17 15:59 Future hold Warfarin Sodium (Coumadin Tab) 2.5 mg MoTuWeFrSa@1600 PO 10/31/17 16:00 11/30/17 15:59 11/03/17 15:34 2.5 MG Guaifenesin/ Dextromethorphan (Robitussin-Dm Syrup) 5 ml Q6H PRN PO 10/31/17 15:45 11/30/17 15:44 11/01/17 12:27 5 ML Salmeterol Xinafoate/ Fluticasone (Advair Diskus 500/50 Inh) 1 puff BID INH 10/31/17 16:15 11/30/17 16:14 11/03/17 21:01 1 PUFF Levalbuterol (Xopenex 0.63 Mg/ 3 Ml Neb) 0.63 mg Q3R PRN INH 10/31/17 17:15 11/30/17 17:14 11/01/17 10:28 0.63 MG Lisinopril (Zestril Tab) 20 mg QAM PO 11/03/17 09:00 12/03/17 08:59 11/03/17 08:05 20 MG Menthol (Nice Aurelia) 1 aurelia PRN PRN AURELIA 11/02/17 10:30 12/02/17 10:29 Amlodipine Besylate (Norvasc Tab) 10 mg DAILY PO 11/04/17 09:00 12/01/17 08:59 Insulin Glargine (Lantus Solostar Pen) SEE PROTOCOL TEXT BID SC 11/03/17 09:00 12/03/17 08:59 11/03/17 20:56 15 UNITS
[2017-11-04] MEDS: INSULIN GLARGINE SOLOSTAR 100 UNITS/ML 3 ML PEN SC SCH ×2 (08:41→21:09)
[2017-11-04] MEDS: BENZONATATE 100MG CAP PO SCH ×2 (08:42→21:00)
[2017-11-04] MEDS: FLUTICASONE/SALMETEROL (ADVAIR) 500/50 INH 14 PUFF INH SCH ×2 (08:42→21:07)
[2017-11-04] MEDS: DOXYCYCLINE HYCLATE 100 MG CAP PO SCH ×2 (08:42→21:41)
[2017-11-04] MEDS: ASPIRIN 81 MG ECTAB PO SCH (08:42)
[2017-11-04] MEDS: INSULIN ASPART 100 UNITS/ML 3 ML PEN SC SCH ×5 (08:42→21:12)
[2017-11-04] MEDS: AMLODIPINE BESYLATE 5 MG TAB PO SCH (08:42)
[2017-11-04] MEDS: SOTALOL HCL 80 MG TAB PO SCH ×2 (08:43→21:07)
[2017-11-04] MEDS: MULTIVITAMIN TAB PO SCH (08:43)
[2017-11-04] MEDS: LISINOPRIL 20 MG TAB PO SCH (08:43)
--- NOTE | 2017-11-04 15:38 | Pulmonology Progress Note ---
Pulmonary Progress Note Date of Service Nov 04, 2017. Attending Dr. Scott Subjective This is a pleasant 77-year-old female admitted for shortness of breath on 10/31/17. Pulmonary consult was initially placed and patient was followed by Dr. gillespie. Per discussion with nursing Dr. gillespie signed off appropriately. However, over the last 2 days patient continues to be persistently hypoxic with minimal ambulation. Chest x-ray initially showed emphysema with no infiltrate or consolidation. On examination patient appears to have decreased breath sounds bilaterally in the bases and in the right middle lobe. Suspicious of atelectasis due to minimal activity. Patient currently denies any lower extremity pain or asymmetrical edema. She has no pleuritic pain. She has no fever. She has no production of sputum. She does have a dry cough consistent with previous exacerbations. She has no nausea, vomiting, diarrhea. Aside from easy fatigability and dyspnea with minimal exertion, she has no acute complaints. Objective GENERAL : No acute distress EYES: No icterus, gaze conjugate NOSE: No evidence of epistaxis MOUTH: No lesions or candidiasis NECK: Supple LUNGS: CTA B/L, no wheezes, rales or rhonchi. Breath sounds decreased bilaterally at the bases and right middle lobe. HEART: Regular, rate controlled ABDOMEN: Soft, NT, ND, BS Present EXTREMITIES: No LE edema, pedal pulses intact NEURO: A&OX3 Assessment & Plan COPD exacerbation * Remote smoking history * Follows with [facility] * Most recently saw the nurse practitioner at [facility] * Recent PFTs show progression of disease * Continue with steroids but decreased to methylprednisolone 40 mg IV twice daily * Continue bronchodilators * Will add incentive spirometry and check repeat 2 view chest x-ray in the morning * Encourage ambulation from bed to chair and in room * Patient baseline of 4 L/min via cannula at home -currently requiring 6 L/min with intermittent use of BiPAP and Oxymask * Follow supportively DVT prophylaxis * Continue warfarin for atrial fibrillation * INR 2.7 Thank you for including us in the care of this patient. Please refer to Dr. Scott's addendum for further recommendations. Physician Supervision Note: I was present with Drew Guillermo PA-C during the history and exam. I discussed the case with him and agree with the findings and plan as documented in the note. Any exceptions or clarifications are listed here: Patient with significant COPD exacerbation. Continue treatment with steroids, antibiotics, bronchodilators Incentive spirometry She does not have any sputum production, I don't see a benefit from antibiotics Fully anticoagulated already for a-fib Documented By: Bonifacio Scott MD Data Medications: Current Inpatient Medications Medications (Trade) Dose Ordered Sig/Liset Route Start Time Stop Time Status Last Admin Dose Admin Acetaminophen (Tylenol Tab) 650 mg Q4H PRN PO 10/31/17 14:15 11/30/17 14:14 11/02/17 08:07 650 MG Al Hydrox/Mg Hydrox/Simethicone (Maalox Max Susp) 15 ml Q4H PRN PO 10/31/17 14:15 11/30/17 14:14 Magnesium Hydroxide (Milk Of Magnesia Susp) 30 ml Q12H PRN PO 10/31/17 14:15 11/30/17 14:14 Ondansetron HCl (Zofran Inj) 4 mg Q6H PRN IV 10/31/17 14:15 11/30/17 14:14 Nitroglycerin (Nitrostat Tab) 0.4 mg UD PRN SL 10/31/17 14:15 11/30/17 14:14 Aspirin (Ecotrin Tab) 81 mg QAM PO 11/01/17 09:00 12/01/17 08:59 11/04/17 08:42 81 MG Polyethylene (Miralax Powder Packet) 17 gm DAILY PRN PO 10/31/17 14:15 11/30/17 14:14 Glucose (Glucose 40% Gel) 15-30 GRAMS 15 GRAMS... UD PRN PO 10/31/17 14:15 11/30/17 14:14 Glucose (Glucose Chew Tab) 4-8 Tablets 4 Tabl... UD PRN PO 10/31/17 14:15 11/30/17 14:14 Dextrose (Dextrose 50% 50ML Syringe) 25-50ML OF 50% DW IV FOR... UD PRN IV 10/31/17 14:15 11/30/17 14:14 Glucagon (Glucagon Inj) 1 mg UD PRN SQ 10/31/17 14:15 11/30/17 14:14 Miscellaneous Information (Consult Glycemic Management Pharmacy) 1 ea UD PRN N/A 10/31/17 15:08 4/1/18 15:07 Doxycycline Hyclate (Vibramycin Cap) 100 mg BID PO 10/31/17 21:00 11/07/17 20:59 11/04/17 08:42 100 MG Ipratropium [place] (Atrovent 0.02% 0.5MG/2.5ML Neb) 0.5 mg Q6RWA INH 10/31/17 15:00 11/30/17 14:59 11/04/17 13:57 0.5 MG Levalbuterol (Xopenex 1.25MG/ 0.5ML Neb) 1.25 mg Q6RWA INH 10/31/17 15:00 11/30/17 14:59 11/04/17 13:57 1.25 MG Insulin Aspart (novoLOG ASPART) SLIDING SCALE ACHS SC 10/31/17 16:30 11/30/17 16:29 11/04/17 13:07 7 UNITS Benzonatate (Tessalon Perles Cap) 100 mg BID PO 10/31/17 21:00 11/30/17 20:59 11/04/17 08:42 100 MG Multivitamins (Multivitamin Tab) 1 tab DAILY PO 11/01/17 09:00 12/01/17 08:59 11/04/17 08:43 1 TAB Sotalol HCl (Betapace Tab) 80 mg Q12 PO 10/31/17 21:00 11/30/17 20:59 11/04/17 08:43 80 MG Warfarin Sodium (Coumadin Tab) 5 mg SuTh@1600 PO 11/02/17 16:00 12/02/17 15:59 Future hold Warfarin Sodium (Coumadin Tab) 2.5 mg MoTuWeFrSa@1600 PO 10/31/17 16:00 11/30/17 15:59 11/03/17 15:34 2.5 MG Guaifenesin/ Dextromethorphan (Robitussin-Dm Syrup) 5 ml Q6H PRN PO 10/31/17 15:45 11/30/17 15:44 11/01/17 12:27 5 ML Salmeterol Xinafoate/ Fluticasone (Advair Diskus 500/50 Inh) 1 puff BID INH 10/31/17 16:15 11/30/17 16:14 11/04/17 08:42 1 PUFF Levalbuterol (Xopenex 0.63 Mg/ 3 Ml Neb) 0.63 mg Q3R PRN INH 10/31/17 17:15 11/30/17 17:14 11/01/17 10:28 0.63 MG Lisinopril (Zestril Tab) 20 mg QAM PO 11/03/17 09:00 12/03/17 08:59 11/04/17 08:43 20 MG Menthol (Nice Bernabe) 1 bernabe PRN PRN BERNABE 11/02/17 10:30 12/02/17 10:29 Amlodipine Besylate (Norvasc Tab) 10 mg DAILY PO 11/04/17 09:00 12/01/17 08:59 11/04/17 08:42 10 MG Insulin Glargine (Lantus Solostar Pen) SEE PROTOCOL TEXT BID SC 11/03/17 09:00 12/03/17 08:59 11/04/17 08:41 15 UNITS Methylprednisolone Sodium Succinate 40 mg/Syringe 0.64 ml @ 1.5 mls/min Q12H IV 11/04/17 18:00 11/30/17 21:59 I & O: 24-Hour Column 11/05/17 08:00 Intake Total 250 ml Output Total 250 ml Balance 0 ml Vital Signs: Date Time Temp Pulse Resp B/P (MAP) Pulse Ox O2 Delivery O2 Flow Rate FiO2 11/04/17 13:59 93 18 89 Nasal Cannula 6.0 11/04/17 12:27 Oxymask 6.0 11/04/17 11:43 36.8 90 20 167/88 (114) 90 6.0 11/04/17 09:23 109 80 11/04/17 08:50 Oxymask 6.0 11/04/17 07:43 36.7 96 18 179/98 (125) 91 6.0 11/04/17 07:26 94 20 89 Nasal Cannula 6.0 11/04/17 05:00 79 18 181/90 (120) 93 Oxymask 6.0 11/04/17 04:00 Oxymask 6.0 11/04/17 00:00 18 162/91 (114) 95 6.0 11/04/17 00:00 Oxymask 6.0 11/03/17 23:47 36.6 63 18 154/66 (95) 91 11/03/17 20:00 Oxymask 6.0 11/03/17 19:49 36.4 102 22 159/75 (103) 92 Nasal Cannula 6.0 11/03/17 19:09 108 26 86 Nasal Cannula 6.0 11/03/17 15:45 Oxymask 6.0 Laboratory Results: Last 24 Hours Test 11/03/17 16:21 11/03/17 20:30 11/04/17 06:08 11/04/17 07:23 Bedside Glucose 125 mg/dl 215 mg/dl 154 mg/dl White Blood Count 13.81 K/uL Red Blood Count 5.26 M/uL Hemoglobin 14.7 g/dL Hematocrit 44.4 % Mean Corpuscular Volume 84.4 fL Mean Corpuscular Hemoglobin 27.9 pg Mean Corpuscular Hemoglobin Concent 33.1 g/dl RDW Standard Deviation 45.8 fL RDW Coefficient of Variation 14.9 % Platelet Count 356 K/uL Mean Platelet Volume 11.2 fL Prothrombin Time 27.6 SECONDS Prothromb Time International Ratio 2.7 Sodium Level 135 mmol/L Potassium Level 3.6 mmol/L Chloride Level 98 mmol/L Carbon Dioxide Level 34 mmol/L Anion Gap 3.0 mmol/L Blood Urea Nitrogen 30 mg/dl Creatinine 0.60 mg/dl Est Creatinine Clear Calc Drug Dose 61.1 ml/min Estimated GFR () 101.2 Estimated GFR (Non- 87.3 BUN/Creatinine Ratio 49.7 Random Glucose 135 mg/dl Calcium Level 9.1 mg/dl Magnesium Level 2.3 mg/dl Test 11/04/17 11:34 Bedside Glucose 177 mg/dl
[2017-11-04] MEDS: WARFARIN SOD 2.5 MG TAB PO SCH (15:42)
[2017-11-05] VITALS (12 sets, daily range): BP systolic 124–177; BP diastolic 63–85; PULSE 81–103; TEMP 36.2–36.9; O2SAT 79–93
[2017-11-05] MEDS: METHYLPREDNISOLONE IV 40 MG in SYRINGE 0 ML IV SCH ×2 (06:05→18:03)
[2017-11-05] MEDS: IPRATROPIUM BROMIDE NEB SOLN 0.02% 2.5 ML VIAL INH SCH ×3 (07:41→19:44)
[2017-11-05] MEDS: LEVALBUTEROL 1.25MG/0.5ML NEB INH SCH ×3 (07:41→19:44)
[2017-11-05] MEDS: DOXYCYCLINE HYCLATE 100 MG CAP PO SCH ×2 (08:05→20:37)
[2017-11-05] MEDS: FLUTICASONE/SALMETEROL (ADVAIR) 500/50 INH 14 PUFF INH SCH ×2 (08:05→20:37)
[2017-11-05] MEDS: AMLODIPINE BESYLATE 5 MG TAB PO SCH (08:06)
[2017-11-05] MEDS: BENZONATATE 100MG CAP PO SCH ×2 (08:06→20:37)
[2017-11-05] MEDS: LISINOPRIL 20 MG TAB PO SCH (08:06)
[2017-11-05] MEDS: ASPIRIN 81 MG ECTAB PO SCH (08:06)
[2017-11-05] MEDS: SOTALOL HCL 80 MG TAB PO SCH ×2 (08:07→20:37)
[2017-11-05] MEDS: MULTIVITAMIN TAB PO SCH (08:07)
[2017-11-05] MEDS: INSULIN ASPART 100 UNITS/ML 3 ML PEN SC SCH ×4 (08:10→21:00)
[2017-11-05] MEDS: INSULIN GLARGINE SOLOSTAR 100 UNITS/ML 3 ML PEN SC SCH ×2 (08:11→21:26)
--- NOTE | 2017-11-05 08:45 | DIAGNOSTIC IMAGING REPORT ---
CHEST 2 VIEWS ROUTINE CLINICAL HISTORY: Influenza / persistent hypoxia dyspnea COMPARISON STUDY: 10/31/2017 FINDINGS: Mild emphysematous change. Slight chronic interstitial prominence. No focal infiltrate. Diaphragms are smooth. IMPRESSION: Chronic change. No acute process. The above report was generated using voice recognition software. It may contain grammatical, syntax or spelling errors. Electronically signed by: Duglas Cardenas M.D. 11/05/2017 8:43 AM Dictated Date/Time: 11/05/2017 8:43 AM
--- NOTE | 2017-11-05 13:37 | Pharmacy Progress Note ---
Pharmacy Glycemic Short Note 2 Date of Service Nov 05, 2017. OUTPATIENT ANTIDIABETIC REGIMEN: * Lantus 12 units SQ daily * Metformin 1,000mg PO BIDM * A1c = 7% on 11/01/17 ASSESSMENT: * Ms Rodriguez is a 77 y/o F with a PMH of severe COPD, HTN, Afib on warfarin, and well controlled type 2 diabetes (goal HbA1C according to the Elements of Diabetes Care Scoring Scale is 6.6-7.5%) who presents with shortness of breath and COPD exacerbation. The patient was initiated on IV high dose RTC Solumedrol + abx. Severe hyperglycemia likely to result from steroids despite adequate outpatient control. Currently, the patient is receiving Solu-Medrol 40 mg IV q12 hours. The patient desaturates whenever she moves. * Yesterday's blood sugars were [phone] and today's fasting blood sugar was 115 mg/dL (decreased from yesterday's fasting of 154 mg/dL). The patient received 57 units of insulin yesterday with 30 units of basal. Patient's scale has remained the same over the past few days. Patient has seen a shift towards more bolus insulin (currently 52% compared to almost 60% a couple of days ago). Patient did receive lower dose of Lantus this morning which is appropriate. Expect Lantus to decrease as steroids decrease; however uncertain how fast this will happen. If oral prednisone ordered, can decrease Lantus to home dose and add once daily NPH as is most favorably mimics the pharmacokinetics of prednisone. * For Novolog, the patient's blood sugars do not appear adequately managed by carbohydrate coverage. Tighten slightly. PLAN FOR INPATIENT GLYCEMIC CONTROL: * Holding outpatient oral diabetes medications * Use NovoLog instead * Basal insulin - beginning to taper * Lantus 10-15 units SQ BID (Lantus 10 units if blood sugar less than 120 mg/dL ) * Bolus insulin: tighten CF/CR today * NovoLog per scale ACHS or Q6hrs while NPO * Goal Range: Low 110 mg/dL - High 140 mg/dL * Correction Factor: 15 mg/dL/unit * Nutritional / Prandial insulin per carb ratio of 1 unit per 4 grams CHO consumed OUTPATIENT RECOMMENDATIONS * Ms Rodriguez is well controlled on her home regimen. Recommend continuing regimen as long as she does not have any hypoglycemia at home.
--- NOTE | 2017-11-05 16:11 | DIAGNOSTIC IMAGING REPORT ---
SINGLE VIEW CHEST CLINICAL HISTORY: Wheezing. FINDINGS: An AP, portable, upright chest radiograph is compared to study performed earlier the same day 11/05/2017. Correlation is made with chest CT dated 12/07/2013 The examination is degraded by portable technique and patient rotation. The cardiomediastinal silhouette is unremarkable. There is atherosclerotic calcification of the thoracic aorta. Enlargement of the central pulmonary vessels suggests pulmonary artery hypertension. Emphysema and chronic interstitial thickening our similar to previous. No airspace consolidation or pleural effusion is identified. No pneumothorax is seen. The skeletal structures are osteopenic. The bony thorax is grossly intact. IMPRESSION: Emphysema with no acute cardiopulmonary abnormality. Electronically signed by: Drew Cutler M.D. 11/05/2017 4:10 PM Dictated Date/Time: 11/05/2017 4:08 PM
[2017-11-05] MEDS: WARFARIN SOD 2.5 MG TAB PO SCH (17:20)
--- NOTE | 2017-11-05 17:45 | Progress Note ---
Medicine Progress Note Date & Time of Visit: Nov 05, 2017 at 17:39. Subjective seen resting in bed, speaks in sentences with mild acc muscle use but not in distress on NC at 10L desaturated again today with ambulation somewhat more dyspneic than yesterday coughing less no other symptoms Objective Last 8 Hrs Date Time Temp Pulse Resp B/P (MAP) Pulse Ox O2 Delivery O2 Flow Rate FiO2 11/05/17 15:32 36.9 89 20 124/63 (83) 92 Room Air 11/05/17 14:16 102 22 87 Nasal Cannula 6.0 11/05/17 12:00 Nasal Cannula 6.0 11/05/17 11:09 36.7 83 22 124/70 (88) 89 Nasal Cannula 6.0 Physical Exam: General- oriented x 3, not in distress, speaks in sentences with some effort, no accessory muscle use Head- atraumatic Eyes- anicteric ENT- oropharynx clear Neck- supple, no JVD Lungs- more distant breath sounds than yesterday, with some rhonchi, no wheezes Heart- regular rhythm; no murmur, normal rate Abdomen- normal bowel sounds, soft, nontender Extremities- no pretibial edema, no calf tendernes Neuro- alert, oriented x 3; no gross focal neurologic deficits Skin- warm & dry Laboratory Results: Last 24 Hours Test 11/04/17 20:48 11/05/17 07:40 11/05/17 11:43 11/05/17 16:11 Bedside Glucose 156 mg/dl 115 mg/dl 181 mg/dl 183 mg/dl Test 11/05/17 17:24 Assessment & Plan This is a 77 year old female with a PMH of severe COPD and chronic respiratory failure on 4L of O2 continuously, DM2, HTN, and paroxysmal atrial fibrillation on long-term anticoagulation presents with worsening shortness of breath Acute on Chronic Hypoxic Respiratory Failure Secondary to Acute COPD Exacerbation likely from Acute Bronchitis - CXR: no acute findings Flu PCR: negative - now at 10 Liters via NC CXR: unchanged - discussed with KHADIJAH Guillermo, requested to re-eval patient ABG to be ordered - continue Solumedrol 40mg q12h continue Doxy, Nebs q6h Paroxysmal Atrial Fibrillation on Long-term anticoagulation currently NSR continue sotalol continue Coumadin, INR is 2-3 HTN BP elevated, likely from IV steroids increased Amlodipine to 10mg po daily BP improving may increase Lisinopril to 20mg po BID if still uncontrolled DM2 Ha1c = 7.0% insulin sliding scale Lantus dose as per glycemic control pharmacist DVT ppx Coumadin FULL CODE Disposition anticipate d/c home when stable, cleared by Pulmonary PCP ff up with Dr. Leone Pulmonary ff up Current Inpatient Medications: Current Inpatient Medications Medications (Trade) Dose Ordered Sig/Liset Route Start Time Stop Time Status Last Admin Dose Admin Acetaminophen (Tylenol Tab) 650 mg Q4H PRN PO 10/31/17 14:15 11/30/17 14:14 11/02/17 08:07 650 MG Al Hydrox/Mg Hydrox/Simethicone (Maalox Max Susp) 15 ml Q4H PRN PO 10/31/17 14:15 11/30/17 14:14 Magnesium Hydroxide (Milk Of Magnesia Susp) 30 ml Q12H PRN PO 10/31/17 14:15 11/30/17 14:14 Ondansetron HCl (Zofran Inj) 4 mg Q6H PRN IV 10/31/17 14:15 11/30/17 14:14 Nitroglycerin (Nitrostat Tab) 0.4 mg UD PRN SL 10/31/17 14:15 11/30/17 14:14 Aspirin (Ecotrin Tab) 81 mg QAM PO 11/01/17 09:00 12/01/17 08:59 11/05/17 08:06 81 MG Polyethylene (Miralax Powder Packet) 17 gm DAILY PRN PO 10/31/17 14:15 11/30/17 14:14 Glucose (Glucose 40% Gel) 15-30 GRAMS 15 GRAMS... UD PRN PO 10/31/17 14:15 11/30/17 14:14 Glucose (Glucose Chew Tab) 4-8 Tablets 4 Tabl... UD PRN PO 10/31/17 14:15 11/30/17 14:14 Dextrose (Dextrose 50% 50ML Syringe) 25-50ML OF 50% DW IV FOR... UD PRN IV 10/31/17 14:15 11/30/17 14:14 Glucagon (Glucagon Inj) 1 mg UD PRN SQ 10/31/17 14:15 11/30/17 14:14 Miscellaneous Information (Consult Glycemic Management Pharmacy) 1 ea UD PRN N/A 10/31/17 15:08 11/30/17 15:07 Doxycycline Hyclate (Vibramycin Cap) 100 mg BID PO 10/31/17 21:00 11/07/17 20:59 11/05/17 08:05 100 MG Ipratropium [place] (Atrovent 0.02% 0.5MG/2.5ML Neb) 0.5 mg Q6RWA INH 10/31/17 15:00 11/30/17 14:59 11/05/17 14:16 0.5 MG Levalbuterol (Xopenex 1.25MG/ 0.5ML Neb) 1.25 mg Q6RWA INH 10/31/17 15:00 11/30/17 14:59 11/05/17 14:16 1.25 MG Insulin Aspart (novoLOG ASPART) SLIDING SCALE ACHS SC 10/31/17 16:30 11/30/17 16:29 11/05/17 12:26 17 UNITS Benzonatate (Tessalon Perles Cap) 100 mg BID PO 10/31/17 21:00 11/30/17 20:59 11/05/17 08:06 100 MG Multivitamins (Multivitamin Tab) 1 tab DAILY PO 11/01/17 09:00 12/01/17 08:59 11/05/17 08:07 1 TAB Sotalol HCl (Betapace Tab) 80 mg Q12 PO 10/31/17 21:00 11/30/17 20:59 11/05/17 08:07 80 MG Warfarin Sodium (Coumadin Tab) 5 mg SuTh@1600 PO 11/02/17 16:00 12/02/17 15:59 Future hold Warfarin Sodium (Coumadin Tab) 2.5 mg MoTuWeFrSa@1600 PO 10/31/17 16:00 11/30/17 15:59 11/05/17 17:20 2.5 MG Guaifenesin/ Dextromethorphan (Robitussin-Dm Syrup) 5 ml Q6H PRN PO 10/31/17 15:45 11/30/17 15:44 11/01/17 12:27 5 ML Salmeterol Xinafoate/ Fluticasone (Advair Diskus 500/50 Inh) 1 puff BID INH 10/31/17 16:15 11/30/17 16:14 11/05/17 08:05 1 PUFF Levalbuterol (Xopenex 0.63 Mg/ 3 Ml Neb) 0.63 mg Q3R PRN INH 10/31/17 17:15 11/30/17 17:14 11/01/17 10:28 0.63 MG Lisinopril (Zestril Tab) 20 mg QAM PO 11/03/17 09:00 12/03/17 08:59 11/05/17 08:06 20 MG Menthol (Nice Bernabe) 1 bernabe PRN PRN BERNABE 11/02/17 10:30 12/02/17 10:29 Amlodipine Besylate (Norvasc Tab) 10 mg DAILY PO 11/04/17 09:00 12/01/17 08:59 11/05/17 08:06 10 MG Insulin Glargine (Lantus Solostar Pen) SEE PROTOCOL TEXT BID SC 11/03/17 09:00 12/03/17 08:59 11/05/17 08:11 10 UNITS Methylprednisolone Sodium Succinate 40 mg/Syringe 0.64 ml @ 1.5 mls/min Q12H IV 11/04/17 18:00 11/30/17 21:59 11/05/17 06:05 1.5 MLS/MIN
--- NOTE | 2017-11-05 19:57 | Pulmonology Progress Note ---
Pulmonary Progress Note Date of Service Nov 05, 2017. Attending Dr. Scott Subjective Patient seen at bedside with daughter and granddaughter present. Was able to walk in the halls today but had hypoxia followed by coughing. She was found to be hypoxic in the low to mid 80s. Oxygen supplementation was increased from 6- 10 L/min. After 5 or 6 minutes of coughing the patient then was able to expectorate to large mucous plugs that were white in color and very sticky and thick in consistency. Shortly after that, patient experiencing improved comfort regarding her respiratory status. Nursing was unable to begin titrating supplemental oxygen. At the time of my visit she was back down to 6 L /min. ABG was collected and reveal compensated respiratory failure with a pH of 7.4 and no hypercapnia and slight hypoxia. Patient denies any fever or chills. She has no nausea or vomiting. She has no chest pain. She did have wheezes associated with chest tightness and heaviness. She reports that the chest heaviness resolved when the wheezes resolved with respiratory treatments. She continues to feel fatigued but otherwise has no acute complaints. She is sitting up in bed with no use of accessory muscles or distress Objective GENERAL : No acute distress EYES: No icterus, gaze conjugate NOSE: No evidence of epistaxis MOUTH: No lesions or candidiasis NECK: Supple LUNGS: CTA B/L, no wheezes, rales or rhonchi. Breath sounds currently are improved with aeration in all lung zones. There is no appreciation of adventitious sounds at the time of my exam HEART: Regular, rate controlled ABDOMEN: Soft, NT, ND, BS Present EXTREMITIES: No LE edema, pedal pulses intact NEURO: A&OX3 Assessment & Plan COPD exacerbation * Remote smoking history * Follows with [facility] * Most recently saw the nurse practitioner at [facility] * Recent PFTs show progression of disease * Continue with steroids but decreased to methylprednisolone 40 mg IV twice daily 11/04/17 * Continue bronchodilators with DuoNeb's every 6 hours scheduled and as needed * Will add Mucomyst 20% nebulizer treatments every 12 hours * Continue incentive spirometry and continue to encourage ambulation * Patient baseline of 4 L/min via cannula at home -continue intermittent use of BiPAP and Oxymask as needed * Follow supportively DVT prophylaxis * Continue warfarin for atrial fibrillation * INR 2.7 Thank you for including us in the care of this patient. Please refer to Dr. Scott's addendum for further recommendations. Data Medications: Current Inpatient Medications Medications (Trade) Dose Ordered Sig/Liset Route Start Time Stop Time Status Last Admin Dose Admin Acetaminophen (Tylenol Tab) 650 mg Q4H PRN PO 10/31/17 14:15 11/30/17 14:14 11/02/17 08:07 650 MG Al Hydrox/Mg Hydrox/Simethicone (Maalox Max Susp) 15 ml Q4H PRN PO 10/31/17 14:15 11/30/17 14:14 Magnesium Hydroxide (Milk Of Magnesia Susp) 30 ml Q12H PRN PO 10/31/17 14:15 11/30/17 14:14 Ondansetron HCl (Zofran Inj) 4 mg Q6H PRN IV 10/31/17 14:15 11/30/17 14:14 Nitroglycerin (Nitrostat Tab) 0.4 mg UD PRN SL 10/31/17 14:15 11/30/17 14:14 Aspirin (Ecotrin Tab) 81 mg QAM PO 11/01/17 09:00 12/01/17 08:59 11/05/17 08:06 81 MG Polyethylene (Miralax Powder Packet) 17 gm DAILY PRN PO 10/31/17 14:15 11/30/17 14:14 Glucose (Glucose 40% Gel) 15-30 GRAMS 15 GRAMS... UD PRN PO 10/31/17 14:15 11/30/17 14:14 Glucose (Glucose Chew Tab) 4-8 Tablets 4 Tabl... UD PRN PO 10/31/17 14:15 11/30/17 14:14 Dextrose (Dextrose 50% 50ML Syringe) 25-50ML OF 50% DW IV FOR... UD PRN IV 10/31/17 14:15 11/30/17 14:14 Glucagon (Glucagon Inj) 1 mg UD PRN SQ 10/31/17 14:15 11/30/17 14:14 Miscellaneous Information (Consult Glycemic Management Pharmacy) 1 ea UD PRN N/A 10/31/17 15:08 11/30/17 15:07 Doxycycline Hyclate (Vibramycin Cap) 100 mg BID PO 10/31/17 21:00 11/07/17 20:59 11/05/17 08:05 100 MG Ipratropium [place] (Atrovent 0.02% 0.5MG/2.5ML Neb) 0.5 mg Q6RWA INH 10/31/17 15:00 11/30/17 14:59 11/05/17 19:44 0.5 MG Levalbuterol (Xopenex 1.25MG/ 0.5ML Neb) 1.25 mg Q6RWA INH 10/31/17 15:00 11/30/17 14:59 11/05/17 19:44 1.25 MG Insulin Aspart (novoLOG ASPART) SLIDING SCALE ACHS SC 10/31/17 16:30 11/30/17 16:29 11/05/17 18:12 9 UNITS Benzonatate (Tessalon Perles Cap) 100 mg BID PO 10/31/17 21:00 11/30/17 20:59 11/05/17 08:06 100 MG Multivitamins (Multivitamin Tab) 1 tab DAILY PO 11/01/17 09:00 12/01/17 08:59 11/05/17 08:07 1 TAB Sotalol HCl (Betapace Tab) 80 mg Q12 PO 10/31/17 21:00 11/30/17 20:59 11/05/17 08:07 80 MG Warfarin Sodium (Coumadin Tab) 5 mg SuTh@1600 PO 11/02/17 16:00 12/02/17 15:59 Future hold Warfarin Sodium (Coumadin Tab) 2.5 mg MoTuWeFrSa@1600 PO 10/31/17 16:00 11/30/17 15:59 11/05/17 17:20 2.5 MG Guaifenesin/ Dextromethorphan (Robitussin-Dm Syrup) 5 ml Q6H PRN PO 10/31/17 15:45 11/30/17 15:44 11/01/17 12:27 5 ML Salmeterol Xinafoate/ Fluticasone (Advair Diskus 500/50 Inh) 1 puff BID INH 10/31/17 16:15 11/30/17 16:14 11/05/17 08:05 1 PUFF Levalbuterol (Xopenex 0.63 Mg/ 3 Ml Neb) 0.63 mg Q3R PRN INH 10/31/17 17:15 11/30/17 17:14 11/01/17 10:28 0.63 MG Lisinopril (Zestril Tab) 20 mg QAM PO 11/03/17 09:00 12/03/17 08:59 11/05/17 08:06 20 MG Menthol (Nice Bernabe) 1 bernabe PRN PRN BERNABE 11/02/17 10:30 12/02/17 10:29 Amlodipine Besylate (Norvasc Tab) 10 mg DAILY PO 11/04/17 09:00 12/01/17 08:59 11/05/17 08:06 10 MG Insulin Glargine (Lantus Solostar Pen) SEE PROTOCOL TEXT BID SC 11/03/17 09:00 12/03/17 08:59 11/05/17 08:11 10 UNITS Methylprednisolone Sodium Succinate 40 mg/Syringe 0.64 ml @ 1.5 mls/min Q12H IV 11/04/17 18:00 11/30/17 21:59 11/05/17 18:03 1.5 MLS/MIN Acetylcysteine (Mucomyst 20% Inh Soln) 3 ml Q12H INH 11/05/17 20:00 12/05/17 19:59 UNV I & O: 24-Hour Column 11/06/17 08:00 Intake Total 880 ml Output Total 250 ml Balance 630 ml Vital Signs: Date Time Temp Pulse Resp B/P (MAP) Pulse Ox O2 Delivery O2 Flow Rate FiO2 11/05/17 19:28 36.2 91 22 147/74 (98) 91 Oxymask 10.0 11/05/17 16:00 91 Oxymask 10.0 11/05/17 15:32 36.9 89 20 124/63 (83) 92 Room Air 11/05/17 14:16 102 22 87 Nasal Cannula 6.0 11/05/17 12:00 Nasal Cannula 6.0 11/05/17 11:09 36.7 83 22 124/70 (88) 89 Nasal Cannula 6.0 11/05/17 08:55 103 79 11/05/17 08:00 Nasal Cannula 6.0 11/05/17 07:42 99 18 90 Nasal Cannula 6.0 11/05/17 07:26 36.3 82 20 177/82 (113) 91 Nasal Cannula 6.0 11/05/17 04:45 36.5 82 19 160/85 (110) 93 Nasal Cannula 6.0 11/05/17 04:00 Nasal Cannula 6.0 11/05/17 00:00 Nasal Cannula 6.0 11/04/17 23:14 36.4 86 20 171/89 (116) 92 Nasal Cannula 6.0 11/04/17 20:06 93 Nasal Cannula 6.0 Laboratory Results: Last 24 Hours Test 11/04/17 20:48 11/05/17 07:40 11/05/17 11:43 11/05/17 16:11 Bedside Glucose 156 mg/dl 115 mg/dl 181 mg/dl 183 mg/dl Test 11/05/17 17:46 Arterial Blood pH 7.45 Arterial Blood Partial Pressure CO2 43 mmHg Arterial Blood Partial Pressure O2 65 mm/Hg Arterial Blood HCO3 30 mmol/L Arterial Blood Oxygen Saturation 92.4 % Arterial Blood Base Excess 5.0 mEq/L Arterial Blood Gas Delivery 10 Charli Test POS
[2017-11-05] MEDS: ACETYLCYSTEINE 20% INHAL SOLN ***DISPENSED BY RESP. INH SCH (20:04)
[2017-11-06] VITALS (14 sets, daily range): BP systolic 114–180; BP diastolic 63–79; PULSE 69–97; TEMP 36.4–36.7; O2SAT 86–96
[2017-11-06] MEDS: METHYLPREDNISOLONE IV 40 MG in SYRINGE 0 ML IV SCH ×2 (05:37→17:35)
[2017-11-06] MEDS: ACETYLCYSTEINE 20% INHAL SOLN ***DISPENSED BY RESP. INH SCH ×2 (07:15→19:16)
[2017-11-06] MEDS: LEVALBUTEROL 1.25MG/0.5ML NEB INH SCH ×3 (07:15→19:17)
[2017-11-06] MEDS: IPRATROPIUM BROMIDE NEB SOLN 0.02% 2.5 ML VIAL INH SCH ×3 (07:15→19:17)
[2017-11-06] MEDS: MULTIVITAMIN TAB PO SCH (08:48)
[2017-11-06] MEDS: ASPIRIN 81 MG ECTAB PO SCH (08:48)
[2017-11-06] MEDS: LISINOPRIL 20 MG TAB PO SCH (08:48)
[2017-11-06] MEDS: FLUTICASONE/SALMETEROL (ADVAIR) 500/50 INH 14 PUFF INH SCH ×2 (08:48→21:09)
[2017-11-06] MEDS: SOTALOL HCL 80 MG TAB PO SCH ×3 (08:48→21:09)
[2017-11-06] MEDS: BENZONATATE 100MG CAP PO SCH ×2 (08:49→21:10)
[2017-11-06] MEDS: AMLODIPINE BESYLATE 5 MG TAB PO SCH (08:49)
[2017-11-06] MEDS: DOXYCYCLINE HYCLATE 100 MG CAP PO SCH ×2 (08:49→21:10)
[2017-11-06] MEDS: INSULIN ASPART 100 UNITS/ML 3 ML PEN SC SCH ×4 (08:52→21:00)
[2017-11-06] MEDS: INSULIN GLARGINE SOLOSTAR 100 UNITS/ML 3 ML PEN SC SCH ×2 (08:53→21:10)
[2017-11-06 09:01] LABS: INR 2.6 (0.9-1.1)
--- NOTE | 2017-11-06 09:12 | Progress Note ---
Medicine Progress Note Date & Time of Visit: Nov 06, 2017 at 08:26. Subjective seen sitting up in bed, more comfortable back to 6L NC states she feels improved compared to yesterday less dyspnea able to expectorate sputum more denies chest pain no other symptoms Objective Last 8 Hrs Date Time Temp Pulse Resp B/P (MAP) Pulse Ox O2 Delivery O2 Flow Rate FiO2 11/06/17 07:26 36.4 83 18 180/77 (111) 92 Nasal Cannula 6.0 11/06/17 07:15 90 20 91 Nasal Cannula 6.0 11/06/17 04:39 36.5 75 18 160/79 (106) 96 5.0 11/06/17 04:00 Nasal Cannula 6.0 Physical Exam: General- oriented x 3, not in distress, speaks in sentences with some effort, no accessory muscle use Head- atraumatic Eyes- anicteric Neck- no JVD Lungs- air entry better than yesterday, no rales/wheezes Heart- regular rhythm; no murmur, normal rate Abdomen- normal bowel sounds, soft, nontender Extremities- no pretibial edema, no calf tenderness Neuro- alert, oriented x 3; no gross focal neurologic deficits Skin- warm & dry Laboratory Results: Last 24 Hours Test 11/05/17 11:43 11/05/17 16:11 11/05/17 17:46 11/05/17 21:20 Bedside Glucose 181 mg/dl 183 mg/dl 135 mg/dl Arterial Blood pH 7.45 Arterial Blood Partial Pressure CO2 43 mmHg Arterial Blood Partial Pressure O2 65 mm/Hg Arterial Blood HCO3 30 mmol/L Arterial Blood Oxygen Saturation 92.4 % Arterial Blood Base Excess 5.0 mEq/L Arterial Blood Gas Delivery 10 Charli Test POS Test 11/06/17 07:57 11/06/17 08:15 Bedside Glucose 119 mg/dl Assessment & Plan This is a 77 year old female with a PMH of severe COPD and chronic respiratory failure on 4L of O2 continuously, DM2, HTN, and paroxysmal atrial fibrillation on long-term anticoagulation presents with worsening shortness of breath Acute on Chronic Hypoxic Respiratory Failure Secondary to Acute COPD Exacerbation likely from Acute Bronchitis - CXR: no acute findings Flu PCR: negative - repeat CXR: unchanged ABG compensated - Mucomyst BID ordered continue Solumedrol 40mg q12h continue Doxy, Nebs q6h - improved on 6 L NC today (usually 4L at home) Paroxysmal Atrial Fibrillation on Long-term anticoagulation currently NSR continue sotalol continue Coumadin, INR is 2-3 HTN BP elevated, likely from IV steroids increased Amlodipine to 10mg po daily BP improving may increase Lisinopril to 20mg po BID if still uncontrolled DM2 Ha1c = 7.0% insulin sliding scale Lantus dose as per glycemic control pharmacist DVT ppx Coumadin FULL CODE Disposition anticipate d/c home when stable, cleared by Pulmonary PCP ff up with Dr. Leone Pulmonary ff up Current Inpatient Medications: Current Inpatient Medications Medications (Trade) Dose Ordered Sig/Liset Route Start Time Stop Time Status Last Admin Dose Admin Acetaminophen (Tylenol Tab) 650 mg Q4H PRN PO 10/31/17 14:15 11/30/17 14:14 11/02/17 08:07 650 MG Al Hydrox/Mg Hydrox/Simethicone (Maalox Max Susp) 15 ml Q4H PRN PO 10/31/17 14:15 11/30/17 14:14 Magnesium Hydroxide (Milk Of Magnesia Susp) 30 ml Q12H PRN PO 10/31/17 14:15 11/30/17 14:14 Ondansetron HCl (Zofran Inj) 4 mg Q6H PRN IV 10/31/17 14:15 11/30/17 14:14 Nitroglycerin (Nitrostat Tab) 0.4 mg UD PRN SL 10/31/17 14:15 11/30/17 14:14 Aspirin (Ecotrin Tab) 81 mg QAM PO 11/01/17 09:00 12/01/17 08:59 11/05/17 08:06 81 MG Polyethylene (Miralax Powder Packet) 17 gm DAILY PRN PO 10/31/17 14:15 11/30/17 14:14 Glucose (Glucose 40% Gel) 15-30 GRAMS 15 GRAMS... UD PRN PO 10/31/17 14:15 11/30/17 14:14 Glucose (Glucose Chew Tab) 4-8 Tablets 4 Tabl... UD PRN PO 10/31/17 14:15 11/30/17 14:14 Dextrose (Dextrose 50% 50ML Syringe) 25-50ML OF 50% DW IV FOR... UD PRN IV 10/31/17 14:15 11/30/17 14:14 Glucagon (Glucagon Inj) 1 mg UD PRN SQ 10/31/17 14:15 11/30/17 14:14 Miscellaneous Information (Consult Glycemic Management Pharmacy) 1 ea UD PRN N/A 10/31/17 15:08 11/30/17 15:07 Doxycycline Hyclate (Vibramycin Cap) 100 mg BID PO 10/31/17 21:00 11/07/17 20:59 11/05/17 20:37 100 MG Ipratropium [place] (Atrovent 0.02% 0.5MG/2.5ML Neb) 0.5 mg Q6RWA INH 10/31/17 15:00 11/30/17 14:59 11/06/17 07:15 0.5 MG Levalbuterol (Xopenex 1.25MG/ 0.5ML Neb) 1.25 mg Q6RWA INH 10/31/17 15:00 11/30/17 14:59 11/06/17 07:15 1.25 MG Insulin Aspart (novoLOG ASPART) SLIDING SCALE ACHS SC 10/31/17 16:30 11/30/17 16:29 11/05/17 18:12 9 UNITS Benzonatate (Tessalon Perles Cap) 100 mg BID PO 10/31/17 21:00 11/30/17 20:59 11/05/17 20:37 100 MG Multivitamins (Multivitamin Tab) 1 tab DAILY PO 11/01/17 09:00 12/01/17 08:59 11/05/17 08:07 1 TAB Sotalol HCl (Betapace Tab) 80 mg Q12 PO 10/31/17 21:00 11/30/17 20:59 11/05/17 20:37 80 MG Warfarin Sodium (Coumadin Tab) 5 mg SuTh@1600 PO 11/02/17 16:00 12/02/17 15:59 Future hold Warfarin Sodium (Coumadin Tab) 2.5 mg MoTuWeFrSa@1600 PO 10/31/17 16:00 11/30/17 15:59 11/05/17 17:20 2.5 MG Guaifenesin/ Dextromethorphan (Robitussin-Dm Syrup) 5 ml Q6H PRN PO 10/31/17 15:45 11/30/17 15:44 11/01/17 12:27 5 ML Salmeterol Xinafoate/ Fluticasone (Advair Diskus 500/50 Inh) 1 puff BID INH 10/31/17 16:15 11/30/17 16:14 11/05/17 20:37 1 PUFF Levalbuterol (Xopenex 0.63 Mg/ 3 Ml Neb) 0.63 mg Q3R PRN INH 10/31/17 17:15 11/30/17 17:14 11/01/17 10:28 0.63 MG Lisinopril (Zestril Tab) 20 mg QAM PO 11/03/17 09:00 12/03/17 08:59 11/05/17 08:06 20 MG Menthol (Nice Bernabe) 1 bernabe PRN PRN BERNABE 11/02/17 10:30 12/02/17 10:29 Amlodipine Besylate (Norvasc Tab) 10 mg DAILY PO 11/04/17 09:00 12/01/17 08:59 11/05/17 08:06 10 MG Insulin Glargine (Lantus Solostar Pen) SEE PROTOCOL TEXT BID SC 11/03/17 09:00 12/03/17 08:59 11/05/17 21:26 15 UNITS Methylprednisolone Sodium Succinate 40 mg/Syringe 0.64 ml @ 1.5 mls/min Q12H IV 11/04/17 18:00 11/30/17 21:59 11/06/17 05:37 1.5 MLS/MIN Acetylcysteine (Mucomyst 20% Inh Soln) 3 ml Q12R INH 11/05/17 20:00 12/05/17 19:59 11/06/17 07:15 3 ML
--- NOTE | 2017-11-06 09:26 | Pharmacy Progress Note ---
Pharmacy Glycemic Short Note 2 Date of Service Nov 06, 2017. OUTPATIENT ANTIDIABETIC REGIMEN: * Lantus 12 units SQ daily * Metformin 1,000mg PO BIDM * A1c = 7% on 11/01/17 ASSESSMENT: * Ms Rodriguez is a 77 y/o F with a PMH of severe COPD, HTN, Afib on warfarin, and well controlled type 2 diabetes (goal HbA1C according to the Elements of Diabetes Care Scoring Scale is 6.6-7.5%) who presents with shortness of breath and COPD exacerbation. The patient was initiated on IV high dose RTC Solumedrol + abx. Severe hyperglycemia likely to result from steroids despite adequate outpatient control. Currently, the patient is receiving Solu-Medrol 40 mg IV q12 hours. The patient desaturates whenever she moves. * Yesterday's blood sugars were [phone] and today's fasting blood sugar was 119 mg/dL (similar to fasting of 115 mg/dL yesterday). The patient received 57 units of insulin yesterday with 25 units of basal. Patient's scale has remained the same over the past few days. Patient has seen a shift towards more bolus insulin (currently 52% compared to almost 60% a couple of days ago). Patient did receive lower dose of Lantus this morning which is appropriate. Blood sugars do seem to climb throughout the day though... so scheduled 15 units in the morning and left the scale in the evening. Expect Lantus to decrease as steroids decrease; however uncertain how fast this will happen. If oral prednisone ordered, can decrease Lantus to home dose and add once daily NPH as is most favorably mimics the pharmacokinetics of prednisone. * For Novolog, the carbohydrate ratio was tightened for dinner and appeared to provide better coverage. HOWEVER at lunch the patient's blood sugar was 244 mg/ dL. Tightened carbohydrate ratio again as the patient's correction factor appears appropriate. PLAN FOR INPATIENT GLYCEMIC CONTROL: * Holding outpatient oral diabetes medications * Use NovoLog instead * Basal insulin - beginning to taper * Lantus 15 units SQ in the morning and then 10-15 units SQ HS (Lantus 10 units if blood sugar less than 100 mg/dL) * Bolus insulin: tighten CF/CR today * NovoLog per scale ACHS or Q6hrs while NPO * Goal Range: Low 110 mg/dL - High 140 mg/dL * Correction Factor: 15 mg/dL/unit * Nutritional / Prandial insulin per carb ratio of 1 unit per 4 grams CHO consumed OUTPATIENT RECOMMENDATIONS * Ms Rodriguez is well controlled on her home regimen. Recommend continuing regimen as long as she does not have any hypoglycemia at home.
[2017-11-06] MEDS: SODIUM CHLORIDE 0.9% 1000ML 1,000 ML IV SCH (11:15)
[2017-11-06] MEDS ORDERED: OPTIRAY 320 IV PRN (11:15)
--- NOTE | 2017-11-06 12:01 | DIAGNOSTIC IMAGING REPORT ---
CHEST CTA for PULMONARY ARTERIES CT DOSE: 193.87 mGy.cm HISTORY: Atypical chest pain. TECHNIQUE: Multiaxial CT images of the chest were performed following the intravenous administration of contrast to evaluate the pulmonary arteries. Maximal intensity projection images were also obtained. A dose lowering technique was utilized adhering to the principles of ALARA. COMPARISON STUDY: Chest CTA 12/07/2013. 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 Normal caliber thoracic aorta with no evidence for dissection. The heart is normal in size. No pleural or pericardial effusions. No filling defects within the pulmonary arteries to suggest pulmonary embolus. No suspicious lytic or blastic osseous lesions. Focal area of coarse calcifications within the left breast suggestive of postoperative changes. The visualized portions of the liver, spleen, and right adrenal gland are unremarkable. Stable 1 cm left adrenal gland nodule. No mediastinal or hilar lymphadenopathy. No pneumothorax. Mild emphysema. Near-complete opacification of the majority of the bilateral lower lobe bronchi. Small amount of mucoid material within the proximal intermedius and left mainstem bronchus. Small linear scarlike densities at the lung apices. A few small linear densities within the lung bases favor subsegmental atelectasis. A stable 2 mm subpleural nodule within the right lung apex on image 243. Therefore, this is benign. No new or suspicious pulmonary nodules identified. Mild interlobular septal thickening most pronounced at the lung apices. This may be chronic. Mild subpleural reticulation within the left upper lobe anteriorly. This favors post radiation change. IMPRESSION: 1. No evidence for pulmonary embolus. 2. Near complete opacification of the bilateral lower lobe bronchi likely due to mucoid material. This may be due to recent aspiration. 3. Mild interlobular septal thickening most pronounced at the lung apices. This is likely chronic. 3. Mild emphysema. 4. Suspected postoperative changes within the left breast. Electronically signed by: Robert Zendejas M.D. 11/06/2017 12:00 PM Dictated Date/Time: 11/06/2017 11:42 AM
[2017-11-06] MEDS: WARFARIN SOD 5 MG TAB PO SCH (16:09)
--- NOTE | 2017-11-06 18:35 | Pulmonology Progress Note ---
Pulmonary Progress Note Date of Service Nov 06, 2017. Attending Dr. Scott Subjective Mrs. Rodriguez was seen at bedside this morning. She states that she slept better last night. She did have increased cough and sputum production after starting the Mucinex inhalation therapy via nebulizer. This morning physical therapy she was able to ambulate in the hallway and although she had desaturation initially, supplemental oxygen was able to be decreased to 5 L and she stated 89 or 90% with limited dyspnea. She denies any chest pain or tightness. There is been no more chest heaviness since her previous passing sputum. She has no fever or chills. Oral intake has been decreased due to poor appetite. She has no other acute complaints. Objective GENERAL : No acute distress. Pleasant. Sitting up in bed EYES: No icterus, gaze conjugate. Peripheral NOSE: No evidence of epistaxis. Nasal cannula in place MOUTH: No lesions or candidiasis NECK: Supple LUNGS: Patient has coarse rales at the bases bilaterally. She also has some rhonchi in the right middle lobe. Otherwise lungs are clear to auscultation but diminished HEART: Regular, rate controlled ABDOMEN: Soft, NT, ND, BS Present EXTREMITIES: No LE edema, pedal pulses intact NEURO: A&OX3 Assessment & Plan COPD exacerbation * Remote smoking history * Follows with [facility] * Most recently saw the nurse practitioner at [facility] * Recent PFTs show progression of disease * Continue with steroids but decreased to methylprednisolone 40 mg IV twice daily 11/04/17 * Continue bronchodilators with DuoNeb's every 6 hours scheduled and as needed * Continue Mucomyst 20% nebulizer treatments every 12 hours * Continue incentive spirometry and continue to encourage ambulation * Patient baseline of 4 L/min via cannula at home -continue intermittent use of BiPAP and Oxymask as needed * Follow supportively Hypoxia * Patient with increased aeration after starting acetylcysteine nebulizers last night * CTA of the chest today without pulmonary emboli but was significant mucoid impaction at the bilateral bases * Continue with ambulation as tolerated * Continue incentive spirometry * Will add a pulmonary vest today for vibration as well as a flutter valve * Increase acetylcysteine 20% nebulizer treatments from 3 mL to 5 mL per treatment and continue every 12 hours * Patient may benefit from bronchoscopy. We will continue to monitor clinically Atrial fibrillation * Patient is currently on sotalol and being anticoagulated with warfarin with a therapeutic INR of 2.6 * In light of probable bronchoscopy on Friday, will hold Coumadin tonight and tomorrow night * Patient is in normal sinus rhythm and is rate controlled * At this time no need to bridge therapy * If patient goes out of normal sinus rhythm bridge therapy with Lovenox Fluid status * Patient appears dry on examination * Review of labs reveals BUN of 30 with a normal creatinine * Will start normal saline at 50 mL/h * Adequate urine output * Follow fluid status per primary team DVT prophylaxis * INR 2.7 for atrial fibrillation * Hold Coumadin for bronchoscopy on Friday morning * Continue to ambulate as tolerated * Fernando/SCDs once INR is below 2.0 Thank you for including us in the care of this patient. Please refer to Dr. Scott's addendum for further recommendations. Data Medications: Current Inpatient Medications Medications (Trade) Dose Ordered Sig/Liset Route Start Time Stop Time Status Last Admin Dose Admin Acetaminophen (Tylenol Tab) 650 mg Q4H PRN PO 10/31/17 14:15 11/30/17 14:14 11/02/17 08:07 650 MG Al Hydrox/Mg Hydrox/Simethicone (Maalox Max Susp) 15 ml Q4H PRN PO 10/31/17 14:15 11/30/17 14:14 Magnesium Hydroxide (Milk Of Magnesia Susp) 30 ml Q12H PRN PO 10/31/17 14:15 11/30/17 14:14 Ondansetron HCl (Zofran Inj) 4 mg Q6H PRN IV 10/31/17 14:15 11/30/17 14:14 Nitroglycerin (Nitrostat Tab) 0.4 mg UD PRN SL 10/31/17 14:15 11/30/17 14:14 Aspirin (Ecotrin Tab) 81 mg QAM PO 11/01/17 09:00 12/01/17 08:59 11/06/17 08:48 81 MG Polyethylene (Miralax Powder Packet) 17 gm DAILY PRN PO 10/31/17 14:15 11/30/17 14:14 Glucose (Glucose 40% Gel) 15-30 GRAMS 15 GRAMS... UD PRN PO 10/31/17 14:15 11/30/17 14:14 Glucose (Glucose Chew Tab) 4-8 Tablets 4 Tabl... UD PRN PO 10/31/17 14:15 11/30/17 14:14 Dextrose (Dextrose 50% 50ML Syringe) 25-50ML OF 50% DW IV FOR... UD PRN IV 10/31/17 14:15 11/30/17 14:14 Glucagon (Glucagon Inj) 1 mg UD PRN SQ 10/31/17 14:15 11/30/17 14:14 Miscellaneous Information (Consult Glycemic Management Pharmacy) 1 ea UD PRN N/A 10/31/17 15:08 11/30/17 15:07 Doxycycline Hyclate (Vibramycin Cap) 100 mg BID PO 10/31/17 21:00 11/07/17 20:59 11/06/17 08:49 100 MG Ipratropium [place] (Atrovent 0.02% 0.5MG/2.5ML Neb) 0.5 mg Q6RWA INH 10/31/17 15:00 11/30/17 14:59 11/06/17 14:30 0.5 MG Levalbuterol (Xopenex 1.25MG/ 0.5ML Neb) 1.25 mg Q6RWA INH 10/31/17 15:00 11/30/17 14:59 11/06/17 14:30 1.25 MG Insulin Aspart (novoLOG ASPART) SLIDING SCALE ACHS SC 10/31/17 16:30 11/30/17 16:29 11/06/17 17:37 8 UNITS Benzonatate (Tessalon Perles Cap) 100 mg BID PO 10/31/17 21:00 11/30/17 20:59 11/06/17 08:49 100 MG Multivitamins (Multivitamin Tab) 1 tab DAILY PO 11/01/17 09:00 12/01/17 08:59 11/06/17 08:48 1 TAB Sotalol HCl (Betapace Tab) 80 mg Q12 PO 10/31/17 21:00 11/30/17 20:59 11/06/17 10:18 80 MG Warfarin Sodium (Coumadin Tab) 5 mg SuTh@1600 PO 11/02/17 16:00 12/02/17 15:59 Future hold 11/06/17 16:09 5 MG Warfarin Sodium (Coumadin Tab) 2.5 mg MoTuWeFrSa@1600 PO 10/31/17 16:00 11/30/17 15:59 11/05/17 17:20 2.5 MG Guaifenesin/ Dextromethorphan (Robitussin-Dm Syrup) 5 ml Q6H PRN PO 10/31/17 15:45 11/30/17 15:44 11/01/17 12:27 5 ML Salmeterol Xinafoate/ Fluticasone (Advair Diskus 500/50 Inh) 1 puff BID INH 10/31/17 16:15 11/30/17 16:14 11/06/17 08:48 1 PUFF Levalbuterol (Xopenex 0.63 Mg/ 3 Ml Neb) 0.63 mg Q3R PRN INH 10/31/17 17:15 11/30/17 17:14 11/01/17 10:28 0.63 MG Lisinopril (Zestril Tab) 20 mg QAM PO 11/03/17 09:00 12/03/17 08:59 11/06/17 08:48 20 MG Menthol (Nice Bernabe) 1 bernabe PRN PRN BERNABE 11/02/17 10:30 12/02/17 10:29 Amlodipine Besylate (Norvasc Tab) 10 mg DAILY PO 11/04/17 09:00 12/01/17 08:59 11/06/17 08:49 10 MG Methylprednisolone Sodium Succinate 40 mg/Syringe 0.64 ml @ 1.5 mls/min Q12H IV 11/04/17 18:00 11/30/17 21:59 11/06/17 17:35 1.5 MLS/MIN Ioversol (Optiray 320) 125 ml UD PRN IV 11/06/17 11:15 11/10/17 11:14 Sodium Chloride 1,000 ml @ 50 mls/hr Q20H IV 11/06/17 11:15 12/06/17 11:14 11/06/17 11:15 50 MLS/HR Insulin Glargine (Lantus Solostar Pen) SEE PROTOCOL TEXT HS SC 11/06/17 21:00 12/06/17 20:59 Insulin Glargine (Lantus Solostar Pen) 15 units QAM SC 11/07/17 09:00 12/07/17 08:59 Acetylcysteine (Mucomyst 20% Inh Soln) 5 ml Q12R INH 11/06/17 20:00 12/05/17 19:59 I & O: 24-Hour Column 11/07/17 07:59 Intake Total 625 ml Output Total 200 ml Balance 425 ml Vital Signs: Date Time Temp Pulse Resp B/P (MAP) Pulse Ox O2 Delivery O2 Flow Rate FiO2 11/06/17 14:43 36.4 79 18 138/73 (94) 90 Nasal Cannula 6.0 11/06/17 14:31 88 18 90 Nasal Cannula 6.0 11/06/17 12:00 Nasal Cannula 6.0 11/06/17 11:29 36.4 78 20 124/66 (85) 90 Nasal Cannula 5.0 11/06/17 10:15 96 124/68 (86) 11/06/17 08:50 97 114/63 (80) 11/06/17 08:00 92 Nasal Cannula 6.0 11/06/17 07:26 36.4 83 18 180/77 (111) 92 Nasal Cannula 6.0 11/06/17 07:15 90 20 91 Nasal Cannula 6.0 11/06/17 04:39 36.5 75 18 160/79 (106) 96 5.0 11/06/17 04:00 Nasal Cannula 6.0 11/06/17 00:00 Nasal Cannula 6.0 11/05/17 22:58 36.4 81 18 142/73 (96) 92 Room Air 11/05/17 20:00 93 High Flow Oxygen 6.0 Nasal Cannula 11/05/17 19:40 90 20 91 Nasal Cannula 6.0 11/05/17 19:28 36.2 91 22 147/74 (98) 91 Oxymask 10.0 Laboratory Results: Last 24 Hours Test 11/05/17 21:20 11/06/17 07:57 11/06/17 08:31 11/06/17 11:25 Bedside Glucose 135 mg/dl 119 mg/dl 244 mg/dl Prothrombin Time 26.3 SECONDS Prothromb Time International Ratio 2.6 Test 11/06/17 16:38 Bedside Glucose 80 mg/dl
[2017-11-07] VITALS (16 sets, daily range): BP systolic 131–170; BP diastolic 61–96; PULSE 70–111; TEMP 36.3–36.8; O2SAT 84–93
[2017-11-07] MEDS: METHYLPREDNISOLONE IV 40 MG in SYRINGE 0 ML IV SCH ×2 (06:07→17:14)
[2017-11-07] MEDS: INSULIN ASPART 100 UNITS/ML 3 ML PEN SC SCH ×4 (06:30→21:00)
[2017-11-07] MEDS: SODIUM CHLORIDE 0.9% 1000ML 1,000 ML IV SCH (06:38)
[2017-11-07] MEDS: LEVALBUTEROL 1.25MG/0.5ML NEB INH SCH ×3 (06:59→19:14)
[2017-11-07] MEDS: IPRATROPIUM BROMIDE NEB SOLN 0.02% 2.5 ML VIAL INH SCH ×3 (06:59→19:13)
[2017-11-07] MEDS: ACETYLCYSTEINE 20% INHAL SOLN ***DISPENSED BY RESP. INH SCH ×2 (06:59→19:14)
[2017-11-07] MEDS: FLUTICASONE/SALMETEROL (ADVAIR) 500/50 INH 14 PUFF INH SCH ×2 (08:11→21:15)
[2017-11-07] MEDS: AMLODIPINE BESYLATE 5 MG TAB PO SCH (08:12)
[2017-11-07] MEDS: ASPIRIN 81 MG ECTAB PO SCH (08:14)
[2017-11-07] MEDS: MULTIVITAMIN TAB PO SCH (08:14)
[2017-11-07] MEDS: DOXYCYCLINE HYCLATE 100 MG CAP PO SCH (08:14)
[2017-11-07] MEDS: LISINOPRIL 20 MG TAB PO SCH (08:15)
[2017-11-07] MEDS: SOTALOL HCL 80 MG TAB PO SCH ×2 (08:15→21:15)
[2017-11-07] MEDS: BENZONATATE 100MG CAP PO SCH ×2 (08:17→21:15)
[2017-11-07] MEDS ORDERED: NURSING VERBAL MED ORDER ONE (08:30)
[2017-11-07] MEDS ORDERED: INSULIN GLARGINE SOLOSTAR 100 UNITS/ML 3 ML PEN SC SCH (09:00)
--- NOTE | 2017-11-07 09:48 | Pharmacy Progress Note ---
Pharmacy Glycemic Short Note 2 Date of Service Nov 07, 2017. OUTPATIENT ANTIDIABETIC REGIMEN: * Lantus 12 units SQ HS * Metformin 1,000mg PO BIDM * A1c = 7% on 11/01/17 Test 11/06/17 11:25 11/06/17 16:38 11/06/17 20:32 11/07/17 07:34 Bedside Glucose 244 mg/dl (70-90) 80 mg/dl (70-90) 140 mg/dl (70-90) 98 mg/dl (70-90) ASSESSMENT: * Ms Rodriguez is a 77 y/o F with a PMH of severe COPD, HTN, Afib on warfarin, and well controlled type 2 diabetes (goal HbA1C according to the Elements of Diabetes Care Scoring Scale is 6.6-7.5%) who presents with shortness of breath and COPD exacerbation. The patient was initiated on IV high dose RTC Solumedrol + abx. Severe hyperglycemia likely to result from steroids despite adequate outpatient control. * Pt NPO this morning for possible bronch, BSG 98mg/dl and feeling a little low , will hold Lantus and change to home dosing, just at bedtime * Continue tighter CF and CR as Solu-Medrol continues at 40mg IV Q12H * If oral prednisone ordered, add once daily NPH as is most favorably mimics the pharmacokinetics of prednisone. PLAN FOR INPATIENT GLYCEMIC CONTROL: * Holding outpatient oral diabetes medications * Use NovoLog instead * Basal insulin - * D/C AM Lantus * Lantus SQ HS - 15 units for BSG < 180mg/dl (Lantus 20 units if blood sugar 180 mg/dL or greater) * Bolus insulin: * NovoLog per scale ACHS or Q6hrs while NPO * Goal Range: Low 110 mg/dL - High 140 mg/dL * Correction Factor: 15 mg/dL/unit * Nutritional / Prandial insulin per carb ratio of 1 unit per 3 grams CHO consumed OUTPATIENT RECOMMENDATIONS * Ms Rodriugez is well controlled on her home regimen. Recommend continuing regimen as long as she does not have any hypoglycemia at home.
--- NOTE | 2017-11-07 12:34 | Pulmonology Progress Note ---
Pulmonary Progress Note Date of Service Nov 07, 2017. Attending Dr. Scott Subjective Patient continues to have some sputum production after nebulizer treatments but still is suffering from hypoxia with exertion. I have cancelled the bronchoscopy for today and rescheduled it for Friday at 11:00am with Dr. Jaquez. Patient did have pneumatic vest as well as flutter valve treatment today which produced increased sputum. She has been comfortable with no chest pain or tightness and no chest fullness. She has had increased sputum production throughout the day as compared to yesterday. She still has easy dyspnea with exertion and is able to identify periods of hypoxia. She has no other acute complaints. Objective GENERAL : No acute distress. Pleasant. Sitting up in bed EYES: No icterus, gaze conjugate. Peripheral NOSE: No evidence of epistaxis. Nasal cannula in place MOUTH: No lesions or candidiasis NECK: Supple LUNGS: Lungs are decreased bilaterally. She does have some mild scattered wheezes. HEART: Regular, rate controlled. Normal sinus rhythm. ABDOMEN: Soft, NT, ND, BS Present EXTREMITIES: No LE edema, pedal pulses intact NEURO: A&OX3 Assessment & Plan COPD exacerbation * Remote smoking history * Follows with [facility] * Most recently saw the nurse practitioner at [facility] * Recent PFTs show progression of disease * Continue with steroids but decreased to methylprednisolone 40 mg IV twice daily 11/04/17 -hypoxia most likely associated with mucoid impaction. Will decrease steroid dose tomorrow to prednisone 40 mg daily * Continue bronchodilators with DuoNeb's every 6 hours scheduled and as needed * Continue Mucomyst 20% nebulizer treatments every 12 hours * Continue incentive spirometry and continue to encourage ambulation * Patient baseline of 4 L/min via cannula at home -continue intermittent use of BiPAP and Oxymask as needed * Follow supportively Hypoxia * Patient with increased aeration after starting acetylcysteine nebulizers * CTA of the chest with significant mucoid impaction at the bilateral bases * Continue with ambulation as tolerated -expect some level of desaturation with exercise. * Continue incentive spirometry * Continue with pulmonary vest for vibration as well as a flutter valve * Continue acetylcysteine 20% nebulizer treatments 5 mL per treatment and continue every 12 hours * Fiberoptic bronchoscopy scheduled for 11/10/[address] Jaquez Atrial fibrillation * Patient is currently on sotalol and being anticoagulated with warfarin with a therapeutic INR * In light of bronchoscopy on Friday, will hold Coumadin * Patient is in normal sinus rhythm and is rate controlled * At this time no need to bridge therapy * If patient goes out of normal sinus rhythm bridge therapy with Lovenox Fluid status * Continue normal saline at 50 mL an hour * Continue to monitor oral intake DVT prophylaxis * INR * Hold Coumadin for bronchoscopy on Friday morning * Continue to ambulate as tolerated * Consider adding Fernando/SCDs while off of Coumadin Thank you for including us in the care of this patient. Please refer to Dr. Scott's addendum for further recommendations. Attending Physician Supervision Note: I was present with Drew Guillermo PA-C during the history and exam. I discussed the case with him and agree with the findings and plan as documented in the note. Any exceptions or clarifications are listed here: Doing slightly better today, using the percussion vest, NAC nebulizers. She ambulated in the hallway, with some desaturation but recovered quickly with rest Continue current regimen, with inhaled Mucomyst, bronchodilators, iv steroids Ambulate as tolerated Fully anticoagulated. Holding Coumadin in case a bronchoscopy is performed on Friday. Hopefully she will improve with current medical interventions Documented By: Bonifacio Scott MD Data Medications: Current Inpatient Medications Medications (Trade) Dose Ordered Sig/Liset Route Start Time Stop Time Status Last Admin Dose Admin Acetaminophen (Tylenol Tab) 650 mg Q4H PRN PO 10/31/17 14:15 11/30/17 14:14 11/02/17 08:07 650 MG Al Hydrox/Mg Hydrox/Simethicone (Maalox Max Susp) 15 ml Q4H PRN PO 10/31/17 14:15 11/30/17 14:14 Magnesium Hydroxide (Milk Of Magnesia Susp) 30 ml Q12H PRN PO 10/31/17 14:15 11/30/17 14:14 Ondansetron HCl (Zofran Inj) 4 mg Q6H PRN IV 10/31/17 14:15 11/30/17 14:14 Nitroglycerin (Nitrostat Tab) 0.4 mg UD PRN SL 10/31/17 14:15 11/30/17 14:14 Aspirin (Ecotrin Tab) 81 mg QAM PO 11/01/17 09:00 12/01/17 08:59 11/07/17 08:14 81 MG Polyethylene (Miralax Powder Packet) 17 gm DAILY PRN PO 10/31/17 14:15 11/30/17 14:14 Glucose (Glucose 40% Gel) 15-30 GRAMS 15 GRAMS... UD PRN PO 10/31/17 14:15 11/30/17 14:14 Glucose (Glucose Chew Tab) 4-8 Tablets 4 Tabl... UD PRN PO 10/31/17 14:15 11/30/17 14:14 Dextrose (Dextrose 50% 50ML Syringe) 25-50ML OF 50% DW IV FOR... UD PRN IV 10/31/17 14:15 11/30/17 14:14 Glucagon (Glucagon Inj) 1 mg UD PRN SQ 10/31/17 14:15 11/30/17 14:14 Miscellaneous Information (Consult Glycemic Management Pharmacy) 1 ea UD PRN N/A 10/31/17 15:08 11/30/17 15:07 Doxycycline Hyclate (Vibramycin Cap) 100 mg BID PO 10/31/17 21:00 11/07/17 20:59 11/07/17 08:14 100 MG Ipratropium [place] (Atrovent 0.02% 0.5MG/2.5ML Neb) 0.5 mg Q6RWA INH 10/31/17 15:00 11/30/17 14:59 11/07/17 06:59 0.5 MG Levalbuterol (Xopenex 1.25MG/ 0.5ML Neb) 1.25 mg Q6RWA INH 10/31/17 15:00 11/30/17 14:59 11/07/17 06:59 1.25 MG Insulin Aspart (novoLOG ASPART) SLIDING SCALE ACHS SC 10/31/17 16:30 11/30/17 16:29 11/07/17 12:14 13 UNITS Benzonatate (Tessalon Perles Cap) 100 mg BID PO 10/31/17 21:00 11/30/17 20:59 11/07/17 08:17 100 MG Multivitamins (Multivitamin Tab) 1 tab DAILY PO 11/01/17 09:00 12/01/17 08:59 11/07/17 08:14 1 TAB Sotalol HCl (Betapace Tab) 80 mg Q12 PO 10/31/17 21:00 11/30/17 20:59 11/07/17 08:15 80 MG Warfarin Sodium (Coumadin Tab) 5 mg SuTh@1600 PO 11/02/17 16:00 12/02/17 15:59 Future hold 11/06/17 16:09 5 MG Warfarin Sodium (Coumadin Tab) 2.5 mg MoTuWeFrSa@1600 PO 10/31/17 16:00 11/30/17 15:59 11/05/17 17:20 2.5 MG Guaifenesin/ Dextromethorphan (Robitussin-Dm Syrup) 5 ml Q6H PRN PO 10/31/17 15:45 11/30/17 15:44 11/01/17 12:27 5 ML Salmeterol Xinafoate/ Fluticasone (Advair Diskus 500/50 Inh) 1 puff BID INH 10/31/17 16:15 11/30/17 16:14 11/07/17 08:11 1 PUFF Levalbuterol (Xopenex 0.63 Mg/ 3 Ml Neb) 0.63 mg Q3R PRN INH 10/31/17 17:15 11/30/17 17:14 11/01/17 10:28 0.63 MG Lisinopril (Zestril Tab) 20 mg QAM PO 11/03/17 09:00 12/03/17 08:59 11/07/17 08:15 20 MG Menthol (Nice Bernabe) 1 bernabe PRN PRN BERNABE 11/02/17 10:30 12/02/17 10:29 Amlodipine Besylate (Norvasc Tab) 10 mg DAILY PO 11/04/17 09:00 12/01/17 08:59 11/07/17 08:12 10 MG Methylprednisolone Sodium Succinate 40 mg/Syringe 0.64 ml @ 1.5 mls/min Q12H IV 11/04/17 18:00 11/30/17 21:59 11/07/17 06:07 1.5 MLS/MIN Ioversol (Optiray 320) 125 ml UD PRN IV 11/06/17 11:15 11/10/17 11:14 Sodium Chloride 1,000 ml @ 50 mls/hr Q20H IV 11/06/17 11:15 12/06/17 11:14 11/07/17 06:38 50 MLS/HR Insulin Glargine (Lantus Solostar Pen) SEE PROTOCOL TEXT HS SC 11/06/17 21:00 12/06/17 20:59 11/06/17 21:10 15 UNITS Acetylcysteine (Mucomyst 20% Inh Soln) 5 ml Q12R INH 11/06/17 20:00 12/05/17 19:59 11/07/17 06:59 5 ML Vital Signs: Date Time Temp Pulse Resp B/P (MAP) Pulse Ox O2 Delivery O2 Flow Rate FiO2 11/07/17 11:23 36.3 73 22 132/71 (91) 89 10.0 11/07/17 08:00 90 Oxymask 10.0 11/07/17 07:20 36.8 80 20 154/81 (105) 90 Oxymask 8.0 11/07/17 06:59 76 20 90 Mask 8.0 11/07/17 04:10 76 169/82 (111) 11/07/17 04:00 Oxymask 8.0 11/07/17 03:40 36.4 75 20 170/96 (120) 92 Oxymask 8.0 11/07/17 00:00 93 Oxymask 8.0 11/06/17 23:08 36.4 69 20 149/79 (102) 92 Mask 8.0 11/06/17 20:00 91 Oxymask 8.0 11/06/17 19:50 36.7 82 18 155/77 (103) 92 6.0 11/06/17 19:17 87 20 86 Nasal Cannula 6.0 11/06/17 16:00 91 Nasal Cannula 6.0 Humidified Oxygen 11/06/17 14:43 36.4 79 18 138/73 (94) 90 Nasal Cannula 6.0 11/06/17 14:31 88 18 90 Nasal Cannula 6.0 Laboratory Results: Last 24 Hours Test 11/06/17 16:38 11/06/17 20:32 11/07/17 07:34 11/07/17 11:36 Bedside Glucose 80 mg/dl 140 mg/dl 98 mg/dl 134 mg/dl
--- NOTE | 2017-11-07 16:04 | Progress Note ---
Medicine Progress Note Date & Time of Visit: Nov 07, 2017 at 16:04. Subjective delayed entry date of service as noted above seen resting in bed, comfortable states her breathing is better compared to earlier today still has productive cough denies other symptoms Objective Last 8 Hrs Date Time Temp Pulse Resp B/P (MAP) Pulse Ox O2 Delivery O2 Flow Rate FiO2 11/07/17 14:58 36.8 82 20 145/73 (97) 91 Oxymask 10.0 11/07/17 14:09 99 20 91 Mask 10.0 11/07/17 13:30 111 84 11/07/17 12:00 91 Oxymask 10.0 11/07/17 11:23 36.3 73 22 132/71 (91) 89 10.0 Physical Exam: General- oriented x 3, not in distress, speaks in sentences with some effort, no accessory muscle use Eyes- anicteric Lungs- mild rhonchi bilateral bases Heart- regular rhythm; no murmur, normal rate Abdomen- normal bowel sounds, soft, nontender Extremities- no pretibial edema, no calf tenderness Neuro- alert, oriented x 3; no gross focal neurologic deficits Skin- warm & dry Laboratory Results: Last 24 Hours Test 11/06/17 16:38 11/06/17 20:32 11/07/17 07:34 11/07/17 11:36 Bedside Glucose 80 mg/dl 140 mg/dl 98 mg/dl 134 mg/dl Assessment & Plan This is a 77 year old female with a PMH of severe COPD and chronic respiratory failure on 4L of O2 continuously, DM2, HTN, and paroxysmal atrial fibrillation on long-term anticoagulation presents with worsening shortness of breath Acute on Chronic Hypoxic Respiratory Failure Secondary to Acute COPD Exacerbation likely from Acute Bronchitis - CXR: no acute findings Flu PCR: negative - repeat CXR: unchanged ABG compensated - Mucomyst BID ordered, increased dose continue Solumedrol 40mg q12h continue Doxy, Nebs q6h - vibrating vest humidified bipap ordered - wean off o2 accordingly - Bronch on Friday appreciate Pulmonary SVC recommendations Paroxysmal Atrial Fibrillation on Long-term anticoagulation currently NSR continue Sotalol Coumadin on hold for possible Bronch on Friday HTN BP elevated, likely from IV steroids increased Amlodipine to 10mg po daily BP improving may increase Lisinopril to 20mg po BID if still uncontrolled DM2 Ha1c = 7.0% insulin sliding scale Lantus dose as per glycemic control pharmacist DVT ppx Coumadin FULL CODE Disposition anticipate d/c home when stable, cleared by Pulmonary PCP ff up with Dr. Leone Pulmonary ff up Current Inpatient Medications: Current Inpatient Medications Medications (Trade) Dose Ordered Sig/Liset Route Start Time Stop Time Status Last Admin Dose Admin Acetaminophen (Tylenol Tab) 650 mg Q4H PRN PO 10/31/17 14:15 11/30/17 14:14 11/02/17 08:07 650 MG Al Hydrox/Mg Hydrox/Simethicone (Maalox Max Susp) 15 ml Q4H PRN PO 10/31/17 14:15 11/30/17 14:14 Magnesium Hydroxide (Milk Of Magnesia Susp) 30 ml Q12H PRN PO 10/31/17 14:15 11/30/17 14:14 Ondansetron HCl (Zofran Inj) 4 mg Q6H PRN IV 10/31/17 14:15 11/30/17 14:14 Nitroglycerin (Nitrostat Tab) 0.4 mg UD PRN SL 10/31/17 14:15 11/30/17 14:14 Aspirin (Ecotrin Tab) 81 mg QAM PO 11/01/17 09:00 12/01/17 08:59 11/07/17 08:14 81 MG Polyethylene (Miralax Powder Packet) 17 gm DAILY PRN PO 10/31/17 14:15 11/30/17 14:14 Glucose (Glucose 40% Gel) 15-30 GRAMS 15 GRAMS... UD PRN PO 10/31/17 14:15 11/30/17 14:14 Glucose (Glucose Chew Tab) 4-8 Tablets 4 Tabl... UD PRN PO 10/31/17 14:15 11/30/17 14:14 Dextrose (Dextrose 50% 50ML Syringe) 25-50ML OF 50% DW IV FOR... UD PRN IV 10/31/17 14:15 11/30/17 14:14 Glucagon (Glucagon Inj) 1 mg UD PRN SQ 10/31/17 14:15 11/30/17 14:14 Miscellaneous Information (Consult Glycemic Management Pharmacy) 1 ea UD PRN N/A 10/31/17 15:08 11/30/17 15:07 Doxycycline Hyclate (Vibramycin Cap) 100 mg BID PO 10/31/17 21:00 11/07/17 20:59 11/07/17 08:14 100 MG Ipratropium [place] (Atrovent 0.02% 0.5MG/2.5ML Neb) 0.5 mg Q6RWA INH 10/31/17 15:00 11/30/17 14:59 11/07/17 14:09 0.5 MG Levalbuterol (Xopenex 1.25MG/ 0.5ML Neb) 1.25 mg Q6RWA INH 10/31/17 15:00 11/30/17 14:59 11/07/17 14:09 1.25 MG Insulin Aspart (novoLOG ASPART) SLIDING SCALE ACHS SC 10/31/17 16:30 11/30/17 16:29 11/07/17 12:14 13 UNITS Benzonatate (Tessalon Perles Cap) 100 mg BID PO 10/31/17 21:00 11/30/17 20:59 11/07/17 08:17 100 MG Multivitamins (Multivitamin Tab) 1 tab DAILY PO 11/01/17 09:00 12/01/17 08:59 11/07/17 08:14 1 TAB Sotalol HCl (Betapace Tab) 80 mg Q12 PO 10/31/17 21:00 11/30/17 20:59 11/07/17 08:15 80 MG Warfarin Sodium (Coumadin Tab) 5 mg SuTh@1600 PO 11/02/17 16:00 12/02/17 15:59 Future Hold 11/06/17 16:09 5 MG Warfarin Sodium (Coumadin Tab) 2.5 mg MoTuWeFrSa@1600 PO 10/31/17 16:00 11/30/17 15:59 Future Hold 11/05/17 17:20 2.5 MG Guaifenesin/ Dextromethorphan (Robitussin-Dm Syrup) 5 ml Q6H PRN PO 10/31/17 15:45 11/30/17 15:44 11/01/17 12:27 5 ML Salmeterol Xinafoate/ Fluticasone (Advair Diskus 500/50 Inh) 1 puff BID INH 10/31/17 16:15 11/30/17 16:14 11/07/17 08:11 1 PUFF Levalbuterol (Xopenex 0.63 Mg/ 3 Ml Neb) 0.63 mg Q3R PRN INH 10/31/17 17:15 11/30/17 17:14 11/01/17 10:28 0.63 MG Lisinopril (Zestril Tab) 20 mg QAM PO 11/03/17 09:00 12/03/17 08:59 11/07/17 08:15 20 MG Menthol (Nice Aurelia) 1 aurelia PRN PRN AURELIA 11/02/17 10:30 12/02/17 10:29 Amlodipine Besylate (Norvasc Tab) 10 mg DAILY PO 11/04/17 09:00 12/01/17 08:59 11/07/17 08:12 10 MG Methylprednisolone Sodium Succinate 40 mg/Syringe 0.64 ml @ 1.5 mls/min Q12H IV 11/04/17 18:00 11/30/17 21:59 11/07/17 06:07 1.5 MLS/MIN Ioversol (Optiray 320) 125 ml UD PRN IV 11/06/17 11:15 11/10/17 11:14 Sodium Chloride 1,000 ml @ 50 mls/hr Q20H IV 11/06/17 11:15 12/06/17 11:14 11/07/17 06:38 50 MLS/HR Insulin Glargine (Lantus Solostar Pen) SEE PROTOCOL TEXT HS SC 11/06/17 21:00 12/06/17 20:59 11/06/17 21:10 15 UNITS Acetylcysteine (Mucomyst 20% Inh Soln) 5 ml Q12R INH 11/06/17 20:00 12/05/17 19:59 11/07/17 06:59 5 ML
[2017-11-07] MEDS: INSULIN GLARGINE SOLOSTAR 100 UNITS/ML 3 ML PEN SC SCH (21:17)
[2017-11-08] VITALS (10 sets, daily range): BP systolic 128–154; BP diastolic 66–78; PULSE 63–89; TEMP 36.5–36.7; O2SAT 90–96
[2017-11-08] MEDS: SODIUM CHLORIDE 0.9% 1000ML 1,000 ML IV SCH (03:20)
[2017-11-08] MEDS: METHYLPREDNISOLONE IV 40 MG in SYRINGE 0 ML IV SCH ×2 (06:36→17:56)
[2017-11-08 06:50] LABS: HEMATOCRIT 39.7 % (37-47); HEMOGLOBIN 13.2 g/dL (12.0-16.0); IG# 0.05 K/uL (0.00-0.02); LYMPH % 13.2 %; LYMPH ABS # 2.03 K/uL (1.2-3.4); MEAN CELL VOLUME 84.5 fL (80-100); MEAN CORPUSCULAR HEMOGLOBIN 28.1 pg (25-34); MEAN CORPUSCULAR HGB CONC 33.2 g/dl (32-36); MEAN PLATELET VOLUME 10.6 fL (7.4-10.4); MONO % 6.5 %; NEUT ABS # 12.25 K/uL (1.4-6.5); PLATELET COUNT 336 K/uL (130-400); RED CELL DISTRIBUTION WIDTH CV 15.2 % (11.5-14.5); RED CELL DISTRIBUTION WIDTH SD 46.9 fL (36.4-46.3); WHITE BLOOD COUNT 15.33 K/uL (4.8-10.8)
[2017-11-08] MEDS: IPRATROPIUM BROMIDE NEB SOLN 0.02% 2.5 ML VIAL INH SCH ×3 (07:00→19:18)
[2017-11-08] MEDS: LEVALBUTEROL 1.25MG/0.5ML NEB INH SCH ×3 (07:01→19:18)
[2017-11-08] MEDS: ACETYLCYSTEINE 20% INHAL SOLN ***DISPENSED BY RESP. INH SCH ×2 (07:01→19:18)
[2017-11-08 07:25] LABS: CALCIUM 8.5 mg/dl (8.5-10.1); CREATININE 0.55 mg/dl (0.60-1.20); POTASSIUM 3.6 mmol/L (3.5-5.1)
[2017-11-08] MEDS: BENZONATATE 100MG CAP PO SCH ×2 (08:03→20:41)
[2017-11-08] MEDS: LISINOPRIL 20 MG TAB PO SCH (08:03)
[2017-11-08] MEDS: ASPIRIN 81 MG ECTAB PO SCH (08:03)
[2017-11-08] MEDS: SOTALOL HCL 80 MG TAB PO SCH ×2 (08:03→20:41)
[2017-11-08] MEDS: AMLODIPINE BESYLATE 5 MG TAB PO SCH (08:03)
[2017-11-08] MEDS: FLUTICASONE/SALMETEROL (ADVAIR) 500/50 INH 14 PUFF INH SCH ×2 (08:03→20:41)
[2017-11-08] MEDS: MULTIVITAMIN TAB PO SCH (08:03)
[2017-11-08] MEDS: INSULIN ASPART 100 UNITS/ML 3 ML PEN SC SCH ×4 (08:06→21:12)
[2017-11-08] MEDS ORDERED: [UNRECOGNIZED DRUG - OTHER] PRN (08:30)
[2017-11-08] MEDS: SODIUM CHLORIDE 0.9% IV SCH ×2 (09:56→21:01)
[2017-11-08] MEDS: VORICONAZOLE IV SCH ×2 (09:56→21:01)
--- NOTE | 2017-11-08 10:09 | Pulmonology Progress Note ---
Pulmonary Progress Note Date of Service Nov 08, 2017. Attending Dr. Scott Subjective Patient seen and examined at bedside. Patient is a nasal cannula and no distress. Son Farhad and grandson Antony visiting. They state the patient looks as though she is almost back to baseline. Patient states no shortness of breath. Continues to cough with minimal sputum production but feels looser in the chest. No acute complaints Objective GENERAL : No acute distress. Pleasant. Sitting up in bed EYES: No icterus, gaze conjugate. Peripheral NOSE: No evidence of epistaxis. Nasal cannula in place MOUTH: No lesions or candidiasis NECK: Supple LUNGS: Lungs are decreased bilaterally. No wheezes or rales today HEART: Regular, rate controlled. Normal sinus rhythm. ABDOMEN: Soft, NT, ND, BS Present EXTREMITIES: No LE edema, pedal pulses intact NEURO: A&OX3 Assessment & Plan Pneumonia * Microbiology of sputum with Aspergillus Fumigates * Start Voriconazole 6mg/kg q12h X 2 doses then 4mg/kg q12h * ID consulted - Discussed with Dr. Malone * Continue flutter valve and incentive spirometry * Continue to ambulate as possible COPD exacerbation * Remote smoking history * Follows with [facility] * Most recently saw the nurse practitioner at [facility] * Recent PFTs show progression of disease * Continue with steroids but decreased to methylprednisolone 40 mg IV twice daily 11/04/17 -hypoxia most likely associated with mucoid impaction. Continue steroid taper as tolerated * Continue bronchodilators with DuoNeb's every 6 hours scheduled and as needed * Continue Mucomyst 20% nebulizer treatments every 12 hours * Continue incentive spirometry and continue to encourage ambulation * Patient baseline of 4 L/min via cannula at home -continue intermittent use of BiPAP and Oxymask as needed. Currently titrated to 4 L/min via nasal cannula Hypoxia * Patient with increased aeration after starting acetylcysteine nebulizers * CTA of the chest with significant mucoid impaction at the bilateral bases * Continue with ambulation as tolerated -expect some level of desaturation with exercise. * Continue incentive spirometry * Continue with pulmonary vest for vibration as well as a flutter valve * Continue acetylcysteine 20% nebulizer treatments 5 mL per treatment and continue every 12 hours * Fiberoptic bronchoscopy scheduled for 11/10/[address] at [address] Jaquez Atrial fibrillation * Patient is currently on sotalol and has been anticoagulated with warfarin with a therapeutic INR * In light of bronchoscopy on Friday, will hold Coumadin * Patient is in normal sinus rhythm and is rate controlled * At this time no need to bridge therapy * If patient goes out of normal sinus rhythm bridge therapy with Lovenox Fluid status * Received normal saline at 50 mL an hour for 3 days -currently -294 mL for this admission. Hold IV fluids for now to encourage patient to ambulate * Continue to monitor oral intake DVT prophylaxis * Check INR Friday * Hold Coumadin for bronchoscopy on Friday * Continue to ambulate as tolerated * Consider adding Fernando/SCDs while off of Coumadin Thank you for including us in the care of this patient. Please refer to Dr. Scott's addendum for further recommendations. Data Medications: Current Inpatient Medications Medications (Trade) Dose Ordered Sig/Liset Route Start Time Stop Time Status Last Admin Dose Admin Acetaminophen (Tylenol Tab) 650 mg Q4H PRN PO 10/31/17 14:15 11/30/17 14:14 11/02/17 08:07 650 MG Al Hydrox/Mg Hydrox/Simethicone (Maalox Max Susp) 15 ml Q4H PRN PO 10/31/17 14:15 11/30/17 14:14 Magnesium Hydroxide (Milk Of Magnesia Susp) 30 ml Q12H PRN PO 10/31/17 14:15 11/30/17 14:14 Ondansetron HCl (Zofran Inj) 4 mg Q6H PRN IV 10/31/17 14:15 11/30/17 14:14 Nitroglycerin (Nitrostat Tab) 0.4 mg UD PRN SL 10/31/17 14:15 11/30/17 14:14 Aspirin (Ecotrin Tab) 81 mg QAM PO 11/01/17 09:00 12/01/17 08:59 11/08/17 08:03 81 MG Polyethylene (Miralax Powder Packet) 17 gm DAILY PRN PO 10/31/17 14:15 11/30/17 14:14 Glucose (Glucose 40% Gel) 15-30 GRAMS 15 GRAMS... UD PRN PO 10/31/17 14:15 11/30/17 14:14 Glucose (Glucose Chew Tab) 4-8 Tablets 4 Tabl... UD PRN PO 10/31/17 14:15 4/1/18 14:14 Dextrose (Dextrose 50% 50ML Syringe) 25-50ML OF 50% DW IV FOR... UD PRN IV 10/31/17 14:15 11/30/17 14:14 Glucagon (Glucagon Inj) 1 mg UD PRN SQ 10/31/17 14:15 11/30/17 14:14 Miscellaneous Information (Consult Glycemic Management Pharmacy) 1 ea UD PRN N/A 10/31/17 15:08 11/30/17 15:07 Ipratropium [place] (Atrovent 0.02% 0.5MG/2.5ML Neb) 0.5 mg Q6RWA INH 10/31/17 15:00 11/30/17 14:59 11/08/17 07:00 0.5 MG Levalbuterol (Xopenex 1.25MG/ 0.5ML Neb) 1.25 mg Q6RWA INH 10/31/17 15:00 11/30/17 14:59 11/08/17 07:01 1.25 MG Insulin Aspart (novoLOG ASPART) SLIDING SCALE ACHS SC 10/31/17 16:30 11/30/17 16:29 11/08/17 08:06 25 UNITS Benzonatate (Tessalon Perles Cap) 100 mg BID PO 10/31/17 21:00 11/30/17 20:59 11/08/17 08:03 100 MG Multivitamins (Multivitamin Tab) 1 tab DAILY PO 11/01/17 09:00 12/01/17 08:59 11/08/17 08:03 1 TAB Sotalol HCl (Betapace Tab) 80 mg Q12 PO 10/31/17 21:00 11/30/17 20:59 11/08/17 08:03 80 MG Warfarin Sodium (Coumadin Tab) 5 mg SuTh@1600 PO 11/02/17 16:00 12/02/17 15:59 Future Hold 11/06/17 16:09 5 MG Warfarin Sodium (Coumadin Tab) 2.5 mg MoTuWeFrSa@1600 PO 10/31/17 16:00 11/30/17 15:59 Future Hold 11/05/17 17:20 2.5 MG Guaifenesin/ Dextromethorphan (Robitussin-Dm Syrup) 5 ml Q6H PRN PO 10/31/17 15:45 11/30/17 15:44 11/01/17 12:27 5 ML Salmeterol Xinafoate/ Fluticasone (Advair Diskus 500/50 Inh) 1 puff BID INH 10/31/17 16:15 11/30/17 16:14 11/08/17 08:03 1 PUFF Levalbuterol (Xopenex 0.63 Mg/ 3 Ml Neb) 0.63 mg Q3R PRN INH 10/31/17 17:15 11/30/17 17:14 11/01/17 10:28 0.63 MG Lisinopril (Zestril Tab) 20 mg QAM PO 11/03/17 09:00 12/03/17 08:59 11/08/17 08:03 20 MG Menthol (Nice [place]) 1 bernabe PRN PRN BERNA[place] 11/02/17 10:30 12/02/17 10:29 Amlodipine Besylate (Norvasc Tab) 10 mg DAILY PO 11/04/17 09:00 12/01/17 08:59 11/08/17 08:03 10 MG Methylprednisolone Sodium Succinate 40 mg/Syringe 0.64 ml @ 1.5 mls/min Q12H IV 11/04/17 18:00 11/30/17 21:59 11/08/17 06:36 1.5 MLS/MIN Ioversol (Optiray 320) 125 ml UD PRN IV 11/06/17 11:15 11/10/17 11:14 Sodium Chloride 1,000 ml @ 50 mls/hr Q20H IV 11/06/17 11:15 12/06/17 11:14 11/08/17 03:20 50 MLS/HR Insulin Glargine (Lantus Solostar Pen) SEE PROTOCOL TEXT HS SC 11/06/17 21:00 12/06/17 20:59 11/07/17 21:17 15 UNITS Acetylcysteine (Mucomyst 20% Inh Soln) 5 ml Q12R INH 11/06/17 20:00 12/05/17 19:59 11/08/17 07:01 5 ML Miscellaneous Information 1 ea UD PRN N/A 11/08/17 08:30 12/08/17 08:29 Voriconazole 330 mg/Sodium Chloride 100 ml @ 50 mls/hr Q12H IV 11/08/17 09:00 11/08/17 22:59 Voriconazole 220 mg/Sodium Chloride 100 ml @ 66 mls/hr Q12H IV 11/09/17 09:00 11/16/17 08:59 Vital Signs: Date Time Temp Pulse Resp B/P (MAP) Pulse Ox O2 Delivery O2 Flow Rate FiO2 11/08/17 07:11 36.5 63 16 142/67 (92) 94 Nasal Cannula 6.0 11/08/17 07:01 83 18 96 Nasal Cannula 6.0 11/08/17 04:11 36.5 65 18 154/78 (103) 90 Room Air 11/08/17 04:00 Oxymask BiPAP 11/08/17 00:00 Oxymask BiPAP 11/07/17 23:26 36.3 70 18 133/61 (85) 90 BiPAP 11/07/17 22:12 71 92 6.0 11/07/17 20:00 Nasal Cannula 6.0 Oxymask 11/07/17 19:28 36.3 89 20 131/66 (87) 90 Nasal Cannula 6.0 11/07/17 19:19 91 22 90 Nasal Cannula 6.0 11/07/17 16:00 90 Oxymask 10.0 11/07/17 14:58 36.8 82 20 145/73 (97) 91 Oxymask 10.0 11/07/17 14:09 99 20 91 Mask 10.0 11/07/17 13:30 111 84 11/07/17 12:00 91 Oxymask 10.0 11/07/17 11:23 36.3 73 22 132/71 (91) 89 10.0 Laboratory Results: Last 24 Hours Test 11/07/17 11:36 11/07/17 16:39 11/07/17 20:37 11/08/17 06:14 Bedside Glucose 134 mg/dl 188 mg/dl 114 mg/dl White Blood Count 15.33 K/uL Red Blood Count 4.70 M/uL Hemoglobin 13.2 g/dL Hematocrit 39.7 % Mean Corpuscular Volume 84.5 fL Mean Corpuscular Hemoglobin 28.1 pg Mean Corpuscular Hemoglobin Concent 33.2 g/dl Platelet Count 336 K/uL Mean Platelet Volume 10.6 fL Neutrophils (%) (Auto) 80.0 % Lymphocytes (%) (Auto) 13.2 % Monocytes (%) (Auto) 6.5 % Eosinophils (%) (Auto) 0.0 % Basophils (%) (Auto) 0.0 % Neutrophils # (Auto) 12.25 K/uL Lymphocytes # (Auto) 2.03 K/uL Monocytes # (Auto) 1.00 K/uL Eosinophils # (Auto) 0.00 K/uL Basophils # (Auto) 0.00 K/uL RDW Standard Deviation 46.9 fL RDW Coefficient of Variation 15.2 % Immature Granulocyte % (Auto) 0.3 % Immature Granulocyte # (Auto) 0.05 K/uL Sodium Level 140 mmol/L Potassium Level 3.6 mmol/L Chloride Level 105 mmol/L Carbon Dioxide Level 30 mmol/L Anion Gap 5.0 mmol/L Blood Urea Nitrogen 43 mg/dl Creatinine 0.55 mg/dl Est Creatinine Clear Calc Drug Dose 66.7 ml/min Estimated GFR () 104.1 Estimated GFR (Non- 89.8 BUN/Creatinine Ratio 77.8 Random Glucose 148 mg/dl Calcium Level 8.5 mg/dl Test 11/08/17 07:23 Bedside Glucose 150 mg/dl
--- NOTE | 2017-11-08 16:59 | Progress Note ---
Medicine Progress Note Date & Time of Visit: Nov 08, 2017 at 16:56. Subjective seen resting in bed, reading the paper states she feels improved today less dyspnea, down to 6L NC able to expectorate more sputum denies other symptoms Objective Last 8 Hrs Date Time Temp Pulse Resp B/P (MAP) Pulse Ox O2 Delivery O2 Flow Rate FiO2 11/08/17 16:00 Nasal Cannula 4.0 11/08/17 15:28 36.6 71 20 128/66 (86) 91 Nasal Cannula 4.0 11/08/17 14:11 74 18 94 Nasal Cannula 5.0 11/08/17 12:00 Nasal Cannula 6.0 11/08/17 11:24 36.7 82 18 137/71 (93) 93 Nasal Cannula Physical Exam: General- oriented x 3, not in distress, speaks in sentences with some effort, no accessory muscle use Eyes- anicteric Lungs- mildly diminished but clear breath sounds bilaterally Heart- regular rhythm; no murmur, normal rate Abdomen- normal bowel sounds, soft, nontender Extremities- no pretibial edema, no calf tenderness Neuro- alert, oriented x 3; no gross focal neurologic deficits Skin- warm & dry Laboratory Results: Last 24 Hours Test 11/07/17 20:37 11/08/17 06:14 11/08/17 07:23 11/08/17 11:28 Bedside Glucose 114 mg/dl 150 mg/dl 157 mg/dl White Blood Count 15.33 K/uL Red Blood Count 4.70 M/uL Hemoglobin 13.2 g/dL Hematocrit 39.7 % Mean Corpuscular Volume 84.5 fL Mean Corpuscular Hemoglobin 28.1 pg Mean Corpuscular Hemoglobin Concent 33.2 g/dl Platelet Count 336 K/uL Mean Platelet Volume 10.6 fL Neutrophils (%) (Auto) 80.0 % Lymphocytes (%) (Auto) 13.2 % Monocytes (%) (Auto) 6.5 % Eosinophils (%) (Auto) 0.0 % Basophils (%) (Auto) 0.0 % Neutrophils # (Auto) 12.25 K/uL Lymphocytes # (Auto) 2.03 K/uL Monocytes # (Auto) 1.00 K/uL Eosinophils # (Auto) 0.00 K/uL Basophils # (Auto) 0.00 K/uL RDW Standard Deviation 46.9 fL RDW Coefficient of Variation 15.2 % Immature Granulocyte % (Auto) 0.3 % Immature Granulocyte # (Auto) 0.05 K/uL Sodium Level 140 mmol/L Potassium Level 3.6 mmol/L Chloride Level 105 mmol/L Carbon Dioxide Level 30 mmol/L Anion Gap 5.0 mmol/L Blood Urea Nitrogen 43 mg/dl Creatinine 0.55 mg/dl Est Creatinine Clear Calc Drug Dose 66.7 ml/min Estimated GFR () 104.1 Estimated GFR (Non- 89.8 BUN/Creatinine Ratio 77.8 Random Glucose 148 mg/dl Calcium Level 8.5 mg/dl Test 11/08/17 16:11 Bedside Glucose 129 mg/dl Assessment & Plan This is a 77 year old female with a PMH of severe COPD and chronic respiratory failure on 4L of O2 continuously, DM2, HTN, and paroxysmal atrial fibrillation on long-term anticoagulation presents with worsening shortness of breath Acute on Chronic Hypoxic Respiratory Failure Secondary to Acute COPD Exacerbation likely from Acute Bronchitis - CXR: no acute findings Flu PCR: negative - repeat CXR: unchanged ABG compensated - Mucomyst BID ordered, increased dose continue Solumedrol 40mg q12h continue Doxy, Nebs q6h - vibrating vest humidified bipap ordered - improving wean off o2 accordingly - Bronch on Friday appreciate Pulmonary SVC recommendations Paroxysmal Atrial Fibrillation on Long-term anticoagulation currently NSR continue Sotalol Coumadin on hold for possible Bronch on Friday HTN BP elevated, likely from IV steroids resume Amlodipine 5mg BP improving may increase Lisinopril to 20mg po BID if still uncontrolled DM2 Ha1c = 7.0% insulin sliding scale Lantus dose as per glycemic control pharmacist DVT ppx INR therapeutic coumadin held for possible Bronch on Friday FULL CODE Disposition anticipate d/c home when stable, cleared by Pulmonary PCP ff up with Dr. Leone Pulmonary ff up Current Inpatient Medications: Current Inpatient Medications Medications (Trade) Dose Ordered Sig/Liset Route Start Time Stop Time Status Last Admin Dose Admin Acetaminophen (Tylenol Tab) 650 mg Q4H PRN PO 10/31/17 14:15 11/30/17 14:14 11/02/17 08:07 650 MG Al Hydrox/Mg Hydrox/Simethicone (Maalox Max Susp) 15 ml Q4H PRN PO 10/31/17 14:15 11/30/17 14:14 Magnesium Hydroxide (Milk Of Magnesia Susp) 30 ml Q12H PRN PO 10/31/17 14:15 11/30/17 14:14 Ondansetron HCl (Zofran Inj) 4 mg Q6H PRN IV 10/31/17 14:15 11/30/17 14:14 Nitroglycerin (Nitrostat Tab) 0.4 mg UD PRN SL 10/31/17 14:15 11/30/17 14:14 Aspirin (Ecotrin Tab) 81 mg QAM PO 11/01/17 09:00 12/01/17 08:59 11/08/17 08:03 81 MG Polyethylene (Miralax Powder Packet) 17 gm DAILY PRN PO 10/31/17 14:15 11/30/17 14:14 Glucose (Glucose 40% Gel) 15-30 GRAMS 15 GRAMS... UD PRN PO 10/31/17 14:15 11/30/17 14:14 Glucose (Glucose Chew Tab) 4-8 Tablets 4 Tabl... UD PRN PO 10/31/17 14:15 11/30/17 14:14 Dextrose (Dextrose 50% 50ML Syringe) 25-50ML OF 50% DW IV FOR... UD PRN IV 10/31/17 14:15 11/30/17 14:14 Glucagon (Glucagon Inj) 1 mg UD PRN SQ 10/31/17 14:15 11/30/17 14:14 Miscellaneous Information (Consult Glycemic Management Pharmacy) 1 ea UD PRN N/A 10/31/17 15:08 11/30/17 15:07 Ipratropium [place] (Atrovent 0.02% 0.5MG/2.5ML Neb) 0.5 mg Q6RWA INH 10/31/17 15:00 11/30/17 14:59 11/08/17 14:11 0.5 MG Levalbuterol (Xopenex 1.25MG/ 0.5ML Neb) 1.25 mg Q6RWA INH 10/31/17 15:00 11/30/17 14:59 11/08/17 14:11 1.25 MG Insulin Aspart (novoLOG ASPART) SLIDING SCALE ACHS SC 10/31/17 16:30 11/30/17 16:29 11/08/17 12:11 15 UNITS Benzonatate (Tessalon Perles Cap) 100 mg BID PO 10/31/17 21:00 11/30/17 20:59 11/08/17 08:03 100 MG Multivitamins (Multivitamin Tab) 1 tab DAILY PO 11/01/17 09:00 12/01/17 08:59 11/08/17 08:03 1 TAB Sotalol HCl (Betapace Tab) 80 mg Q12 PO 10/31/17 21:00 11/30/17 20:59 11/08/17 08:03 80 MG Warfarin Sodium (Coumadin Tab) 5 mg SuTh@1600 PO 11/02/17 16:00 12/02/17 15:59 Future Hold 11/06/17 16:09 5 MG Warfarin Sodium (Coumadin Tab) 2.5 mg MoTuWeFrSa@1600 PO 10/31/17 16:00 11/30/17 15:59 Future Hold 11/05/17 17:20 2.5 MG Guaifenesin/ Dextromethorphan (Robitussin-Dm Syrup) 5 ml Q6H PRN PO 10/31/17 15:45 11/30/17 15:44 11/01/17 12:27 5 ML Salmeterol Xinafoate/ Fluticasone (Advair Diskus 500/50 Inh) 1 puff BID INH 10/31/17 16:15 11/30/17 16:14 11/08/17 08:03 1 PUFF Levalbuterol (Xopenex 0.63 Mg/ 3 Ml Neb) 0.63 mg Q3R PRN INH 10/31/17 17:15 11/30/17 17:14 11/01/17 10:28 0.63 MG Lisinopril (Zestril Tab) 20 mg QAM PO 11/03/17 09:00 12/03/17 08:59 11/08/17 08:03 20 MG Menthol (Nice Aurelia) 1 aurelia PRN PRN AURELIA 11/02/17 10:30 12/02/17 10:29 Methylprednisolone Sodium Succinate 40 mg/Syringe 0.64 ml @ 1.5 mls/min Q12H IV 11/04/17 18:00 11/30/17 21:59 11/08/17 06:36 1.5 MLS/MIN Ioversol (Optiray 320) 125 ml UD PRN IV 11/06/17 11:15 11/10/17 11:14 Insulin Glargine (Lantus Solostar Pen) SEE PROTOCOL TEXT HS SC 11/06/17 21:00 12/06/17 20:59 11/07/17 21:17 15 UNITS Acetylcysteine (Mucomyst 20% Inh Soln) 5 ml Q12R INH 11/06/17 20:00 12/05/17 19:59 11/08/17 07:01 5 ML Miscellaneous Information 1 ea UD PRN N/A 11/08/17 08:30 12/08/17 08:29 Voriconazole 330 mg/Sodium Chloride 100 ml @ 50 mls/hr Q12H IV 11/08/17 09:00 11/08/17 22:59 11/08/17 09:56 50 MLS/HR Voriconazole 220 mg/Sodium Chloride 100 ml @ 66 mls/hr Q12H IV 11/09/17 09:00 11/16/17 08:59 Amlodipine Besylate (Norvasc Tab) 5 mg DAILY PO 11/09/17 09:00 12/01/17 08:59
[2017-11-08] MEDS: INSULIN GLARGINE SOLOSTAR 100 UNITS/ML 3 ML PEN SC SCH (21:13)
[2017-11-09] VITALS (11 sets, daily range): BP systolic 116–167; BP diastolic 61–71; PULSE 67–96; TEMP 36.3–36.9; O2SAT 90–96
[2017-11-09] MEDS: METHYLPREDNISOLONE IV 40 MG in SYRINGE 0 ML IV SCH ×2 (06:04→18:37)
[2017-11-09 06:34] LABS: CALCIUM 8.2 mg/dl (8.5-10.1); CREATININE 0.57 mg/dl (0.60-1.20); POTASSIUM 3.9 mmol/L (3.5-5.1)
[2017-11-09] MEDS: ACETYLCYSTEINE 20% INHAL SOLN ***DISPENSED BY RESP. INH SCH ×2 (07:37→19:06)
[2017-11-09] MEDS: LEVALBUTEROL 1.25MG/0.5ML NEB INH SCH ×3 (07:38→19:06)
[2017-11-09] MEDS: IPRATROPIUM BROMIDE NEB SOLN 0.02% 2.5 ML VIAL INH SCH ×3 (07:38→19:06)
[2017-11-09] MEDS: SOTALOL HCL 80 MG TAB PO SCH ×2 (07:48→20:31)
[2017-11-09] MEDS: BENZONATATE 100MG CAP PO SCH ×2 (07:48→20:31)
[2017-11-09] MEDS: FLUTICASONE/SALMETEROL (ADVAIR) 500/50 INH 14 PUFF INH SCH ×2 (07:48→20:30)
[2017-11-09] MEDS: MULTIVITAMIN TAB PO SCH (07:48)
[2017-11-09] MEDS: LISINOPRIL 20 MG TAB PO SCH (07:48)
[2017-11-09] MEDS: ASPIRIN 81 MG ECTAB PO SCH (07:48)
[2017-11-09] MEDS: AMLODIPINE BESYLATE 5 MG TAB PO SCH (07:48)
[2017-11-09] MEDS: INSULIN ASPART 100 UNITS/ML 3 ML PEN SC SCH ×4 (07:51→20:38)
--- NOTE | 2017-11-09 08:28 | Progress Note ---
Progress Note Date of Service Nov 09, 2017. Progress Note ID Consult Dictated #[id number] A/P: 1. COPD Exac 2. + sputum culture for Aspergillus -Unclear significance, for bronch in am, await findings, bronch culture results -Can continue vori for now, pending bronch culture results -Can change to po, discussed with pulm -Thank you
[2017-11-09] MEDS ORDERED: VORICONAZOLE IV SCH (09:00)
[2017-11-09] MEDS ORDERED: SODIUM CHLORIDE 0.9% IV SCH (09:00)
--- NOTE | 2017-11-09 09:20 | INFECT. DISEASE CONSULTATION ---
DATE OF CONSULTATION: 11/09/2017 HISTORY OF PRESENT ILLNESS: This is a 77-year-old female who was admitted to the hospital with worsening shortness of breath for 3-4 days prior to admission. She does have a history of COPD and she is on 4 liters of nasal cannula at home. Oxygen saturations were in the 80s on room air and she was subsequently admitted to the hospital. She has had an extensive pulmonary workup since her admission. A sputum culture was obtained on the and is growing rare Aspergillus. She was placed on Voriconazole yesterday by pulmonary and an infectious disease consult was obtained for Voriconazole approval. She has been afebrile since admission to the hospital. She does have an elevated white blood cell count of 15.3; however, she is on steroids. A flu swab was negative upon admission to the hospital. Blood cultures were obtained in the ER on the and are negative and final. She is scheduled to have a bronchoscopy tomorrow. She did have a CAT scan of the chest on the which did show mucoid impaction of her bilateral lower lobes. She has had an additional pulmonary toilet since admission to the hospital and now is on nasal cannula oxygen again. She denies any chest pain. She does admit to having a cough which is nonproductive. She denies any hemoptysis. She denies any fevers or chills. She is tolerating Voriconazole well. Her remaining review of systems is unremarkable. PAST MEDICAL HISTORY: Significant for CHF, COPD, ductal carcinoma in situ of the breast, type 2 diabetes, hypertension, and pleural effusions. PAST SURGICAL HISTORY: Significant for partial mastectomy. FAMILY HISTORY: Noncontributory. SOCIAL HISTORY: Significant for history of tobacco use. She quit in 2011. She denies any alcohol or drug use. ALLERGIES: She has no known drug allergies. CURRENT MEDICATIONS: Include Voriconazole, Norvasc, insulin, Mucomyst, Solu-Medrol, Zestril, Ecotrin, multivitamin, Xopenex, Advair, guaifenesin, Atrovent, Tylenol, milk of magnesia, and Maalox. PHYSICAL EXAMINATION: VITAL SIGNS: She is afebrile, pulse 96, respiratory rate is 20, blood pressure 130/69, oxygen saturation is 90% on 5 liters nasal cannula. GENERAL: She is awake, alert and oriented x3. She is in no acute distress. HEENT: Mucous membranes are dry. Extraocular muscles are intact. HEART: Regular. LUNGS: Clear but decreased bilaterally. ABDOMEN: Soft. There is no edema. LABORATORY STUDIES: CBC on the 10th reveals a white blood cell count of 15.3, hemoglobin 13.2, platelets of 336. Chemistry panel reveals a sodium of 140, potassium 3.9, chloride 104, bicarbonate 31, BUN 36, creatinine 0.5, and glucose is 180. UA was negative in the ER. Flu swab was negative. Blood cultures are negative and final. A sputum culture on the again has rare Aspergillus. IMAGING DATA: Most recent imaging is reviewed. ASSESSMENT AND PLAN: Positive sputum culture for Aspergillus. It is unclear if this is oral colonization or a true pathogen. She is scheduled for bronchoscopy and will remain on Voriconazole pending those results. Culture should be obtained. She can be on oral Voriconazole. I did discuss this with pulmonary. Thank you for this consultation.
[2017-11-09] MEDS: NORMOSOL R 1,000 ML IV SCH (11:58)
--- NOTE | 2017-11-09 14:19 | Pharmacy Progress Note ---
Pharmacy Glycemic Short Note 2 Date of Service Nov 09, 2017. OUTPATIENT ANTIDIABETIC REGIMEN: * Lantus 12 units SQ HS * Metformin 1,000mg PO BIDM * A1c = 7% on 11/01/17 Test 11/08/17 16:11 11/08/17 20:37 11/09/17 05:39 11/09/17 07:32 Bedside Glucose 129 mg/dl (70-90) 180 mg/dl (70-90) 180 mg/dl (70-90) Random Glucose 202 mg/dl (70-99) Test 11/09/17 11:41 Bedside Glucose 226 mg/dl (70-90) ASSESSMENT: * Blood sugars at goal yesterday, except for bedtime BSG of 180mg/dl, pt received higher dose of Lantus (20 units) and CF, but did not come down to goal , will tighten CF * NPO after midnight for bronch in AM, Lantus based on BSG * Continue tighter CR as Solu-Medrol continues at 40mg IV Q12H * If oral prednisone ordered, add once daily NPH as is most favorably mimics the pharmacokinetics of prednisone. PLAN FOR INPATIENT GLYCEMIC CONTROL: * Holding outpatient oral diabetes medications * Use NovoLog instead * Basal insulin - * Lantus SQ HS - 15 units for BSG < 180mg/dl (Lantus 20 units if blood sugar 180 mg/dL or greater) * Bolus insulin: * NovoLog per scale ACHS or Q6hrs while NPO * Goal Range: Low 110 mg/dL - High 140 mg/dL * TIGHTEN: Correction Factor: 12 mg/dL/unit * Nutritional / Prandial insulin per carb ratio of 1 unit per 3 grams CHO consumed OUTPATIENT RECOMMENDATIONS * Ms oRdriguez is well controlled on her home regimen. Recommend continuing regimen as long as she does not have any hypoglycemia at home.
--- NOTE | 2017-11-09 15:00 | Pulmonology Progress Note ---
Pulmonary Progress Note Date of Service Nov 09, 2017. Attending Dr. Scott Subjective Was able to shower today. Continue with cough with minimal sputum production. No hemoptysis. No chest pain. No lower extremity swelling or pain in the calf. Objective GENERAL : No acute distress. Pleasant. Sitting up in bed EYES: No icterus, gaze conjugate. Peripheral NOSE: No evidence of epistaxis. Nasal cannula in place MOUTH: No lesions or candidiasis NECK: Supple LUNGS: Lungs are decreased bilaterally. No wheezes or rales today HEART: Regular, rate controlled. Normal sinus rhythm. ABDOMEN: Soft, NT, ND, BS Present EXTREMITIES: No LE edema, pedal pulses intact NEURO: A&OX3 Assessment & Plan Pneumonia * Microbiology of sputum with Aspergillus Fumigates * Started Voriconazole 11/08/2017 at 6mg/kg q12h X 2 doses then 4mg/kg q12h * ID consulted - Discussed with Dr. Malone. Okay to change to oral dosing of voriconazole * Length of treatment to be determined based on bronchoscopy scheduled for 2017 * Continue flutter valve and incentive spirometry * Continue to ambulate as possible COPD exacerbation * Remote smoking history * Follows with [facility] * Most recently saw the nurse practitioner at [facility] * Recent PFTs show progression of disease * Continue steroid taper as tolerated * Continue bronchodilators with DuoNeb's every 6 hours scheduled and as needed * Continue Mucomyst 20% nebulizer treatments every 12 hours. Will discontinue this tomorrow based on bronchoscopy results * Continue incentive spirometry and continue to encourage ambulation * Patient baseline of 4 L/min via cannula at home -continue intermittent use of BiPAP and Oxymask as needed. Currently titrated to 4 L/min via nasal cannula Hypoxia * Patient with increased aeration after starting acetylcysteine nebulizers * CTA of the chest with significant mucoid impaction at the bilateral bases * Continue with ambulation as tolerated -expect some level of desaturation with exercise. * Continue incentive spirometry * Continue with pulmonary vest for vibration as well as a flutter valve * Continue acetylcysteine 20% nebulizer treatments 5 mL per treatment and continue every 12 hours * Fiberoptic bronchoscopy scheduled for 11/10/[address] Jaquez Atrial fibrillation * Patient is currently on sotalol and has been anticoagulated with warfarin with a therapeutic INR * In light of bronchoscopy on Friday, will hold Coumadin * Patient is in normal sinus rhythm and is rate controlled * At this time no need to bridge therapy * If patient goes out of normal sinus rhythm bridge therapy with Lovenox Fluid status * Received normal saline at 50 mL an hour for 3 days -currently -294 mL for this admission. Held IV fluids yesterday * BUN continues to be elevated although creatinine is below 1. Na+ 140 -start Normosol R at 75 mL/h * Continue to monitor oral intake DVT prophylaxis * Check INR Friday * Hold Coumadin for bronchoscopy on Friday * Continue to ambulate as tolerated * Consider adding Fernando/SCDs while off of Coumadin Thank you for including us in the care of this patient. Please refer to Dr. Scott's addendum for further recommendations. Data Medications: Current Inpatient Medications Medications (Trade) Dose Ordered Sig/Liset Route Start Time Stop Time Status Last Admin Dose Admin Acetaminophen (Tylenol Tab) 650 mg Q4H PRN PO 10/31/17 14:15 11/30/17 14:14 11/02/17 08:07 650 MG Al Hydrox/Mg Hydrox/Simethicone (Maalox Max Susp) 15 ml Q4H PRN PO 10/31/17 14:15 11/30/17 14:14 Magnesium Hydroxide (Milk Of Magnesia Susp) 30 ml Q12H PRN PO 10/31/17 14:15 11/30/17 14:14 Ondansetron HCl (Zofran Inj) 4 mg Q6H PRN IV 10/31/17 14:15 11/30/17 14:14 Nitroglycerin (Nitrostat Tab) 0.4 mg UD PRN SL 10/31/17 14:15 11/30/17 14:14 Aspirin (Ecotrin Tab) 81 mg QAM PO 11/01/17 09:00 12/01/17 08:59 11/09/17 07:48 81 MG Polyethylene (Miralax Powder Packet) 17 gm DAILY PRN PO 10/31/17 14:15 11/30/17 14:14 Glucose (Glucose 40% Gel) 15-30 GRAMS 15 GRAMS... UD PRN PO 10/31/17 14:15 11/30/17 14:14 Glucose (Glucose Chew Tab) 4-8 Tablets 4 Tabl... UD PRN PO 10/31/17 14:15 11/30/17 14:14 Dextrose (Dextrose 50% 50ML Syringe) 25-50ML OF 50% DW IV FOR... UD PRN IV 10/31/17 14:15 11/30/17 14:14 Glucagon (Glucagon Inj) 1 mg UD PRN SQ 10/31/17 14:15 11/30/17 14:14 Miscellaneous Information (Consult Glycemic Management Pharmacy) 1 ea UD PRN N/A 10/31/17 15:08 11/30/17 15:07 Ipratropium Wilson (Atrovent 0.02% 0.5MG/2.5ML Neb) 0.5 mg Q6RWA INH 10/31/17 15:00 11/30/17 14:59 11/09/17 14:21 0.5 MG Levalbuterol (Xopenex 1.25MG/ 0.5ML Neb) 1.25 mg Q6RWA INH 10/31/17 15:00 11/30/17 14:59 11/09/17 14:21 1.25 MG Insulin Aspart (novoLOG ASPART) SLIDING SCALE ACHS SC 10/31/17 16:30 11/30/17 16:29 11/09/17 12:03 32 UNITS Benzonatate (Tessalon Perles Cap) 100 mg BID PO 10/31/17 21:00 11/30/17 20:59 11/09/17 07:48 100 MG Multivitamins (Multivitamin Tab) 1 tab DAILY PO 11/01/17 09:00 12/01/17 08:59 11/09/17 07:48 1 TAB Sotalol HCl (Betapace Tab) 80 mg Q12 PO 10/31/17 21:00 11/30/17 20:59 11/09/17 07:48 80 MG Warfarin Sodium (Coumadin Tab) 5 mg SuTh@1600 PO 11/02/17 16:00 12/02/17 15:59 Future Hold 11/06/17 16:09 5 MG Warfarin Sodium (Coumadin Tab) 2.5 mg MoTuWeFrSa@1600 PO 10/31/17 16:00 11/30/17 15:59 Future Hold 11/05/17 17:20 2.5 MG Guaifenesin/ Dextromethorphan (Robitussin-Dm Syrup) 5 ml Q6H PRN PO 10/31/17 15:45 11/30/17 15:44 11/01/17 12:27 5 ML Salmeterol Xinafoate/ Fluticasone (Advair Diskus 500/50 Inh) 1 puff BID INH 10/31/17 16:15 11/30/17 16:14 11/09/17 07:48 1 PUFF Levalbuterol (Xopenex 0.63 Mg/ 3 Ml Neb) 0.63 mg Q3R PRN INH 10/31/17 17:15 11/30/17 17:14 11/01/17 10:28 0.63 MG Lisinopril (Zestril Tab) 20 mg QAM PO 11/03/17 09:00 12/03/17 08:59 11/09/17 07:48 20 MG Menthol (Nice Bernabe) 1 bernabe PRN PRN BERNABE 11/02/17 10:30 12/02/17 10:29 Methylprednisolone Sodium Succinate 40 mg/Syringe 0.64 ml @ 1.5 mls/min Q12H IV 11/04/17 18:00 11/30/17 21:59 11/09/17 06:04 1.5 MLS/MIN Ioversol (Optiray 320) 125 ml UD PRN IV 11/06/17 11:15 11/10/17 11:14 Insulin Glargine (Lantus Solostar Pen) SEE PROTOCOL TEXT HS SC 11/06/17 21:00 12/06/17 20:59 11/08/17 21:13 20 UNITS Acetylcysteine (Mucomyst 20% Inh Soln) 5 ml Q12R INH 11/06/17 20:00 12/05/17 19:59 11/09/17 07:37 5 ML Miscellaneous Information 1 ea UD PRN N/A 11/08/17 08:30 12/08/17 08:29 Amlodipine Besylate (Norvasc Tab) 5 mg DAILY PO 11/09/17 09:00 12/01/17 08:59 11/09/17 07:48 5 MG Voriconazole (Vfend Tab) 200 mg BID PO 11/09/17 21:00 12/09/17 20:59 Parenteral Electrolyte Solution 1,000 ml @ 75 mls/hr [id number] IV 11/09/17 12:00 12/09/17 11:59 11/09/17 11:58 75 MLS/HR I & O: 24-Hour Column 11/10/17 08:00 Intake Total 560 ml Output Total 375 ml Balance 185 ml Vital Signs: Date Time Temp Pulse Resp B/P (MAP) Pulse Ox O2 Delivery O2 Flow Rate FiO2 11/09/17 14:23 84 20 92 Nasal Cannula 5.0 11/09/17 12:00 Nasal Cannula 5.0 11/09/17 11:46 36.6 77 16 122/69 (86) 92 Nasal Cannula 4.0 11/09/17 08:00 Nasal Cannula 5.0 11/09/17 07:38 96 20 90 Nasal Cannula 5.0 11/09/17 07:12 36.4 73 18 130/69 (89) 90 Nasal Cannula 5.0 11/09/17 04:02 36.3 67 20 149/71 (97) 92 Nasal Cannula 5.0 11/09/17 04:00 Nasal Cannula 4.0 11/09/17 00:05 Nasal Cannula 4.0 11/08/17 23:17 36.6 82 16 130/68 (88) 94 BiPAP 11/08/17 22:40 76 92 4.0 11/08/17 20:05 Nasal Cannula 4.0 11/08/17 19:21 89 18 90 Nasal Cannula 4.0 11/08/17 19:16 36.6 86 20 146/74 (98) 93 Nasal Cannula 4.0 11/08/17 16:00 Nasal Cannula 4.0 11/08/17 15:28 36.6 71 20 128/66 (86) 91 Nasal Cannula 4.0 Laboratory Results: Last 24 Hours Test 11/08/17 16:11 11/08/17 20:37 11/09/17 05:39 11/09/17 07:32 Bedside Glucose 129 mg/dl 180 mg/dl 180 mg/dl Sodium Level 140 mmol/L Potassium Level 3.9 mmol/L Chloride Level 104 mmol/L Carbon Dioxide Level 31 mmol/L Anion Gap 5.0 mmol/L Blood Urea Nitrogen 36 mg/dl Creatinine 0.57 mg/dl Est Creatinine Clear Calc Drug Dose 64.4 ml/min Estimated GFR () 102.9 Estimated GFR (Non- 88.8 BUN/Creatinine Ratio 63.6 Random Glucose 202 mg/dl Calcium Level 8.2 mg/dl Test 11/09/17 11:41 Bedside Glucose 226 mg/dl
--- NOTE | 2017-11-09 18:04 | Progress Note ---
Medicine Progress Note Date & Time of Visit: Nov 09, 2017 at 18:00. Subjective seen resting in bed, comfortable family at bedside visiting states she feels slightly improved today still has productive cough right lower leg is more swollen, no pain denies other symptoms Objective Last 8 Hrs Date Time Temp Pulse Resp B/P (MAP) Pulse Ox O2 Delivery O2 Flow Rate FiO2 11/09/17 15:24 36.9 78 20 145/68 (93) 94 Nasal Cannula 5.0 11/09/17 14:23 84 20 92 Nasal Cannula 5.0 11/09/17 12:00 Nasal Cannula 5.0 11/09/17 11:46 36.6 77 16 122/69 (86) 92 Nasal Cannula 4.0 Physical Exam: General- oriented x 3, not in distress, speaks in sentences with some effort, no accessory muscle use Eyes- anicteric Lungs- mildly diminished, still has clear breath sounds bilaterally Heart- regular rhythm; no murmur, normal rate Abdomen- normal bowel sounds, soft, nontender Extremities- no pretibial edema, no calf tenderness Neuro- alert, oriented x 3; no gross focal neurologic deficits Skin- warm & dry Laboratory Results: Last 24 Hours Test 11/08/17 20:37 11/09/17 05:39 11/09/17 07:32 11/09/17 11:41 Bedside Glucose 180 mg/dl 180 mg/dl 226 mg/dl Sodium Level 140 mmol/L Potassium Level 3.9 mmol/L Chloride Level 104 mmol/L Carbon Dioxide Level 31 mmol/L Anion Gap 5.0 mmol/L Blood Urea Nitrogen 36 mg/dl Creatinine 0.57 mg/dl Est Creatinine Clear Calc Drug Dose 64.4 ml/min Estimated GFR () 102.9 Estimated GFR (Non- 88.8 BUN/Creatinine Ratio 63.6 Random Glucose 202 mg/dl Calcium Level 8.2 mg/dl Test 11/09/17 16:12 Bedside Glucose 96 mg/dl Assessment & Plan This is a 77 year old female with a PMH of severe COPD and chronic respiratory failure on 4L of O2 continuously, DM2, HTN, and paroxysmal atrial fibrillation on long-term anticoagulation presents with worsening shortness of breath Acute on Chronic Hypoxic Respiratory Failure Secondary to Acute COPD Exacerbation likely from Acute Bronchitis - CXR: no acute findings Flu PCR: negative - repeat CXR: unchanged ABG compensated - Mucomyst BID ordered, increased dose continued Solumedrol 40mg q12h continued Doxy, Nebs q6h - Sputum culture: (+) Aspergillus Voricoanzole added ID consulted - vibrating vest humidified bipap ordered - improving gradually wean off o2 accordingly - Bronch on Friday appreciate Pulmonary SVC recommendations Paroxysmal Atrial Fibrillation on Long-term anticoagulation currently NSR continue Sotalol Coumadin on hold for possible Bronch on Friday HTN BP elevated, likely from IV steroids resume Amlodipine 5mg BP improving may increase Lisinopril to 20mg po BID if still uncontrolled DM2 Ha1c = 7.0% insulin sliding scale Lantus dose as per glycemic control pharmacist Right Lower Leg Swelling Venous Doppler US: pending r/o DVT DVT ppx INR therapeutic coumadin held for possible Bronch on Friday FULL CODE Disposition anticipate d/c home when stable, cleared by Pulmonary PCP ff up with Dr. Leone Pulmonary ff up Current Inpatient Medications: Current Inpatient Medications Medications (Trade) Dose Ordered Sig/Liset Route Start Time Stop Time Status Last Admin Dose Admin Acetaminophen (Tylenol Tab) 650 mg Q4H PRN PO 10/31/17 14:15 11/30/17 14:14 11/02/17 08:07 650 MG Al Hydrox/Mg Hydrox/Simethicone (Maalox Max Susp) 15 ml Q4H PRN PO 10/31/17 14:15 11/30/17 14:14 Magnesium Hydroxide (Milk Of Magnesia Susp) 30 ml Q12H PRN PO 10/31/17 14:15 11/30/17 14:14 Ondansetron HCl (Zofran Inj) 4 mg Q6H PRN IV 10/31/17 14:15 11/30/17 14:14 Nitroglycerin (Nitrostat Tab) 0.4 mg UD PRN SL 10/31/17 14:15 11/30/17 14:14 Aspirin (Ecotrin Tab) 81 mg QAM PO 11/01/17 09:00 12/01/17 08:59 11/09/17 07:48 81 MG Polyethylene (Miralax Powder Packet) 17 gm DAILY PRN PO 10/31/17 14:15 11/30/17 14:14 Glucose (Glucose 40% Gel) 15-30 GRAMS 15 GRAMS... UD PRN PO 10/31/17 14:15 11/30/17 14:14 Glucose (Glucose Chew Tab) 4-8 Tablets 4 Tabl... UD PRN PO 10/31/17 14:15 11/30/17 14:14 Dextrose (Dextrose 50% 50ML Syringe) 25-50ML OF 50% DW IV FOR... UD PRN IV 10/31/17 14:15 11/30/17 14:14 Glucagon (Glucagon Inj) 1 mg UD PRN SQ 10/31/17 14:15 11/30/17 14:14 Miscellaneous Information (Consult Glycemic Management Pharmacy) 1 ea UD PRN N/A 10/31/17 15:08 11/30/17 15:07 Ipratropium Constable (Atrovent 0.02% 0.5MG/2.5ML Neb) 0.5 mg Q6RWA INH 10/31/17 15:00 11/30/17 14:59 11/09/17 14:21 0.5 MG Levalbuterol (Xopenex 1.25MG/ 0.5ML Neb) 1.25 mg Q6RWA INH 10/31/17 15:00 11/30/17 14:59 11/09/17 14:21 1.25 MG Insulin Aspart (novoLOG ASPART) SLIDING SCALE ACHS SC 10/31/17 16:30 11/30/17 16:29 11/09/17 12:03 32 UNITS Benzonatate (Tessalon Perles Cap) 100 mg BID PO 10/31/17 21:00 11/30/17 20:59 11/09/17 07:48 100 MG Multivitamins (Multivitamin Tab) 1 tab DAILY PO 11/01/17 09:00 12/01/17 08:59 11/09/17 07:48 1 TAB Sotalol HCl (Betapace Tab) 80 mg Q12 PO 10/31/17 21:00 11/30/17 20:59 11/09/17 07:48 80 MG Warfarin Sodium (Coumadin Tab) 5 mg SuTh@1600 PO 11/02/17 16:00 12/02/17 15:59 Future Hold 11/06/17 16:09 5 MG Warfarin Sodium (Coumadin Tab) 2.5 mg MoTuWeFrSa@1600 PO 10/31/17 16:00 11/30/17 15:59 Future Hold 11/05/17 17:20 2.5 MG Guaifenesin/ Dextromethorphan (Robitussin-Dm Syrup) 5 ml Q6H PRN PO 10/31/17 15:45 11/30/17 15:44 11/01/17 12:27 5 ML Salmeterol Xinafoate/ Fluticasone (Advair Diskus 500/50 Inh) 1 puff BID INH 10/31/17 16:15 11/30/17 16:14 11/09/17 07:48 1 PUFF Levalbuterol (Xopenex 0.63 Mg/ 3 Ml Neb) 0.63 mg Q3R PRN INH 10/31/17 17:15 11/30/17 17:14 11/01/17 10:28 0.63 MG Lisinopril (Zestril Tab) 20 mg QAM PO 11/03/17 09:00 12/03/17 08:59 11/09/17 07:48 20 MG Menthol (Nice Aurelia) 1 aurelia PRN PRN AURELIA 11/02/17 10:30 12/02/17 10:29 Methylprednisolone Sodium Succinate 40 mg/Syringe 0.64 ml @ 1.5 mls/min Q12H IV 11/04/17 18:00 11/30/17 21:59 11/09/17 06:04 1.5 MLS/MIN Ioversol (Optiray 320) 125 ml UD PRN IV 11/06/17 11:15 11/10/17 11:14 Insulin Glargine (Lantus Solostar Pen) SEE PROTOCOL TEXT HS SC 11/06/17 21:00 12/06/17 20:59 11/08/17 21:13 20 UNITS Acetylcysteine (Mucomyst 20% Inh Soln) 5 ml Q12R INH 11/06/17 20:00 12/05/17 19:59 11/09/17 07:37 5 ML Miscellaneous Information 1 ea UD PRN N/A 11/08/17 08:30 12/08/17 08:29 Amlodipine Besylate (Norvasc Tab) 5 mg DAILY PO 11/09/17 09:00 12/01/17 08:59 11/09/17 07:48 5 MG Voriconazole (Vfend Tab) 200 mg BID PO 11/09/17 21:00 12/09/17 20:59 Parenteral Electrolyte Solution 1,000 ml @ 75 mls/hr [id number] IV 11/09/17 12:00 12/09/17 11:59 11/09/17 11:58 75 MLS/HR
--- NOTE | 2017-11-09 18:08 | DIAGNOSTIC IMAGING REPORT ---
ULTRASOUND R VENOUS DOPP LOWER EXT UNILAT CLINICAL HISTORY: Right leg pain and swelling COMPARISON STUDY: No previous studies for comparison. FINDINGS: Real-time and color flow Doppler imaging were performed. Flow was seen within the femoral, popliteal and calf veins with no intraluminal thrombus demonstrated. The saphenous vein is patent. There is a small popliteal cyst measuring 16 x 31 x 7 mm. There is an elliptical hypoechoic collection within the proximal medial calf measuring 30 x 69 x 5 mm. This could represent a small hematoma or localized edema. IMPRESSION: No evidence of right lower extremity DVT. Electronically signed by: Antione Davis M.D. 11/09/2017 6:07 PM Dictated Date/Time: 11/09/2017 6:05 PM
[2017-11-09] MEDS: VORICONAZOLE 200 MG TAB PO SCH (20:31)
[2017-11-09] MEDS: INSULIN GLARGINE SOLOSTAR 100 UNITS/ML 3 ML PEN SC SCH (20:39)
[2017-11-10] VITALS (15 sets, daily range): BP systolic 119–158; BP diastolic 64–82; PULSE 69–110; TEMP 36–36.7; O2SAT 90–98
[2017-11-10] MEDS: NORMOSOL R 1,000 ML IV SCH ×2 (00:08→14:44)
[2017-11-10] MEDS: METHYLPREDNISOLONE IV 40 MG in SYRINGE 0 ML IV SCH ×2 (05:49→18:19)
[2017-11-10 06:13] LABS: INR 2.5 (0.9-1.1)
[2017-11-10 06:25] LABS: CREATININE 0.45 mg/dl (0.60-1.20)
--- NOTE | 2017-11-10 06:29 | History & Physical Bridge Note ---
H&P Re-Evaluation Bridge Note: I have examined the patient, reviewed the History & Physical and in the interval since the performance of the History & Physical I have noted the following changes of clinical significance: No changes noted
--- NOTE | 2017-11-10 06:30 | Pre Sedation Assessment ---
Pre Sedation Assessment General Date of Sedation: Nov 10, 2017. Vital Signs Past 12 Hours Date Time Temp Pulse Resp B/P (MAP) Pulse Ox O2 Delivery O2 Flow Rate FiO2 11/10/17 04:16 36.7 69 16 129/72 (91) 95 Oxymask 11/10/17 04:00 92 Oxymask 6.0 11/10/17 00:00 92 Oxymask 6.0 11/09/17 23:47 36.4 72 20 116/61 (79) 91 Nasal Cannula 5.0 11/09/17 20:06 36.4 92 20 167/68 (101) 91 Nasal Cannula 5.0 11/09/17 20:00 94 Nasal Cannula 5.0 11/09/17 19:10 80 20 96 Nasal Cannula 5.0 Pre-Sedation Airway Assessment Smoking Status: Former Smoker (quit 2011, smoked 0.5ppd x 20 year ) Short Thick Neck: No Oral Cavity: WNL Mallampati Classification: Class II ASA Classification: Class III NPO Status Date of Last Intake of Fluids: Nov 06, 2017 Time of Last Intake of Fluids: 2330 Date of Last Intake of Solids: Nov 06, 2017 Time of Last Intake of Solids: 1800 Procedure Planning Contraindications for Sedation: None Current Medications Reviewed: Yes Notes The planned sedation has been discussed with the patient. Informed Consent was obtained. I have identified the patient, determined the appropriateness of sedation and have assessed the patient immediately prior to the procedure. All medicine(s) and interventions are by my order.
--- NOTE | 2017-11-10 06:55 | PULMONARY PROGRESS NOTE ---
DATE: 11/09/2017 ADDENDUM The patient was seen and examined with Drew Guillermo PA-C. I agree with the assessment and plan and treatment course. The patient is scheduled for bronchoscopic evaluation on 11/10 for bronchoalveolar lavage. A CT scan and clinical exam are compatible with significant mucoid impaction despite aggressive management that includes aerosolized bronchodilator and vibration vest treatment with aerosolized Mucomyst and the use of a flutter valve. The patient has O2 requirements at 4 L to maintain saturation and is aware of the risks of potential desaturation during the procedure and developing respiratory distress, but I believe this is important that she undergo this procedure in order to eventuate any further improvement in her respiratory status.
[2017-11-10] MEDS: LEVALBUTEROL 1.25MG/0.5ML NEB INH SCH ×3 (07:03→19:05)
[2017-11-10] MEDS: ACETYLCYSTEINE 20% INHAL SOLN ***DISPENSED BY RESP. INH SCH ×2 (07:03→19:04)
[2017-11-10] MEDS: IPRATROPIUM BROMIDE NEB SOLN 0.02% 2.5 ML VIAL INH SCH ×3 (07:03→19:05)
--- NOTE | 2017-11-10 07:13 | DIAGNOSTIC IMAGING REPORT ---
CHEST ONE VIEW PORTABLE CLINICAL HISTORY: Fungal infection with hypoxia dyspnea COMPARISON STUDY: 11/05/2017 FINDINGS: Slight basilar interstitial prominence. Lungs otherwise appear clear. Stable emphysematous change. No significant cardiac enlargement. IMPRESSION: Slight basilar interstitial prominence. Stable emphysematous change. No focal infiltrative process. The above report was generated using voice recognition software. It may contain grammatical, syntax or spelling errors. Electronically signed by: Duglas Cardenas M.D. 11/10/2017 7:11 AM Dictated Date/Time: 11/10/2017 7:10 AM
[2017-11-10] MEDS: BENZONATATE 100MG CAP PO SCH ×2 (07:54→21:14)
[2017-11-10] MEDS: INSULIN ASPART 100 UNITS/ML 3 ML PEN SC SCH ×4 (07:54→21:17)
[2017-11-10] MEDS: MULTIVITAMIN TAB PO SCH (07:54)
[2017-11-10] MEDS: SOTALOL HCL 80 MG TAB PO SCH ×2 (07:54→21:14)
[2017-11-10] MEDS: LISINOPRIL 20 MG TAB PO SCH (07:55)
[2017-11-10] MEDS: VORICONAZOLE 200 MG TAB PO SCH ×2 (07:55→21:14)
[2017-11-10] MEDS: ASPIRIN 81 MG ECTAB PO SCH (07:55)
[2017-11-10] MEDS: AMLODIPINE BESYLATE 5 MG TAB PO SCH (07:55)
[2017-11-10] MEDS: FLUTICASONE/SALMETEROL (ADVAIR) 500/50 INH 14 PUFF INH SCH ×2 (07:56→21:14)
--- NOTE | 2017-11-10 09:48 | Pre Sedation Assessment ---
Pre Sedation Assessment General Date of Sedation: Nov 10, 2017. Vital Signs Past 12 Hours Date Time Temp Pulse Resp B/P (MAP) Pulse Ox O2 Delivery O2 Flow Rate FiO2 11/10/17 07:08 110 20 98 Mask 5.0 11/10/17 07:05 36.4 72 16 133/72 (92) 95 Oxymask 11/10/17 04:16 36.7 69 16 129/72 (91) 95 Oxymask 11/10/17 04:00 92 Oxymask 6.0 11/10/17 00:00 92 Oxymask 6.0 11/09/17 23:47 36.4 72 20 116/61 (79) 91 Nasal Cannula 5.0 Review Cardiovascular: regular rate, rhythm, no edema, no gallop, no JVD, no murmur, normal peripheral pulses Lungs: + decreased breath sounds (LLL) Pre-Sedation Airway Assessment Smoking Status: Former Smoker (quit 2011, smoked 0.5ppd x 20 year ) Hx of Sleep Apnea: No Hx of difficult intubation: No Short Thick Neck: No Thyro-mental Distance: > 3 Finger Breadths Oral Cavity: WNL Mallampati Classification: Class III ASA Classification: Class III NPO Status Date of Last Intake of Fluids: Nov 10, 2017 Time of Last Intake of Fluids: 0800 Date of Last Intake of Solids: Nov 09, 2017 Time of Last Intake of Solids: 1800 Procedure Planning Contraindications for Sedation: None Current Medications Reviewed: Yes Notes The planned sedation has been discussed with the patient. Informed Consent was obtained. I have identified the patient, determined the appropriateness of sedation and have assessed the patient immediately prior to the procedure. All medicine(s) and interventions are by my order.
--- NOTE | 2017-11-10 10:56 | Bronchoscopy Procedure Note ---
Bronchoscopy Procedure Note Procedure: Bronchoscopy, conscious sedation, bronchial lavage Consent: Obtained through the patient placed into the chart Pre-procedural diagnosis: Chronic bronchitis acute flare Post-procedural diagnosis: Chronic bronchitis with acute flare Start time: 1024 End time: 1045 Total time: 20minutes Analgesia: 2% liquid lidocaine: Via nebulizer 4% gel lidocaine: Via right naris 2% liquid lidocaine: Via bronchoscopy Sedation: Versed IV: 2mg Fentanyl IV: 50g Procedure: The Olympus video bronchoscope was used for this procedure and passed down through the right naris Right naris/posterior naris/posterior oropharynx: Proximal portions of the naris was notably erythematous with mild bleeding Glottis: Anatomically within normal limits Vocal cords: Proper abduction and abduction, anatomically within normal limits Subglottis/trachea/Idania: Anatomically within normal limits Right bronchial tree: Right mainstem bronchus: Anatomically within normal limits Right upper lobe: Anatomically within normal limits Bronchus intermedius: Anatomically within normal limits Right middle lobe: Anatomically within normal limits Right lower lobe: Anatomically within normal limits, diffuse mucus plugging found throughout the right lower lobe Findings: Diffuse mucus plugging found throughout the right lower lobe Left bronchial tree: Left mainstem bronchus: Anatomically within normal limits Left upper lobe: Anatomically within normal limits Lingula: Anatomically within normal limits Left lower lobe: Anatomically within normal limits, large mucous plug obstructing the takeoff to the left lower lobe Findings: Large mucous plug obstructing the takeoff to the left lower lobe Bronchial alveolar lavage: Left lower lobe EBL: none Complications: None Follow-up: ASU
--- NOTE | 2017-11-10 10:57 | Post Sedation Assessment ---
Post Sedation Assessment General Date of Sedation Nov 10, 2017. Vital Signs: Vital Signs Past 12 Hours Date Time Temp Pulse Resp B/P (MAP) Pulse Ox O2 Delivery O2 Flow Rate FiO2 11/10/17 08:00 98 Nasal Cannula 5.0 11/10/17 07:08 110 20 98 Mask 5.0 11/10/17 07:05 36.4 72 16 133/72 (92) 95 Oxymask 11/10/17 04:16 36.7 69 16 129/72 (91) 95 Oxymask 11/10/17 04:00 92 Oxymask 6.0 11/10/17 00:00 92 Oxymask 6.0 11/09/17 23:47 36.4 72 20 116/61 (79) 91 Nasal Cannula 5.0 Post Procedure Recovery Score Activity: (2) Moves 4 extremities * Respiration: (2) Deep breath/cough Circulation: (2) +/-20% PreAnes Value Consciousness: (2) Fully Awake Oxygen Saturation: (0) <90% w/ supp O2 Post Anesthesia Score: 8 Discharge Sedation Level of Care: Fast Track Phase II Post Sedation Plan On clinical assessment, the patient appears to have tolerated the sedation without complications. Patient is recovering as anticipated. Patient will continue to be monitored by nursing and may be discharged when sedation discharge criteria are met per below protocol. Upon Completions of procedure and additional 15 minutes continue every 5 minute vital signs and the P.A.R. score; then discharge to a Phase I or Fast Track to Phase II per the following guidelines: * Discharge Patient to appropriate Phase II area if PAR is 8 or greater or return to pre- procedure baseline. The post - procedure orders will be as directed. * If PAR score is less than 8 or not return to pre-procedure baseline then patient will follow Phase I monitoring till PAR is reached for Phase II. The Phase I may be done in procedure room or may call to secure a Phase I area. * If naloxone or flumazenil are used for reversal, hold in Phase I for an additional 60 -120 minutes before discharge to Phase II. Please call the Sedation Physician to re-evaluate and complete post-note for discharge to Phase II area. Do NOT discharge from procedure sedation or Phase 1 until post- sedation evaluation note is complete by procedure /sedation MD Sedation Discharge Instructions to be given to the patient at discharge to home.
[2017-11-10] MEDS ORDERED: LIDOCAINE 4% INH SOLN 4 ML BTL TOP ONE (10:59)
[2017-11-10] MEDS ORDERED: LIDOCAINE HCL 2% LOCAL 50ML VIAL INSTIL ONE (10:59)
[2017-11-10] MEDS ORDERED: MIDAZOLAM HCL 5 MG/ML 1 ML VIAL IV ONE (10:59)
[2017-11-10] MEDS ORDERED: FENTANYL CITRATE INJ 50 MCG/1 ML 2 ML VIAL IV ONE (10:59)
[2017-11-10] MEDS ORDERED: LIDOCAINE VISCOUS 2% 100ML TOP ONE (10:59)
--- NOTE | 2017-11-10 12:02 | Pharmacy Progress Note ---
Pharmacy Glycemic Short Note 2 Date of Service Nov 10, 2017. OUTPATIENT ANTIDIABETIC REGIMEN: * Lantus 12 units SQ HS * Metformin 1,000mg PO BIDM * A1c = 7% on 11/01/17 Item Value Date Time Bedside Glucose 180 mg/dl H 11/09/17 0732 Bedside Glucose 226 mg/dl H 11/09/17 1141 Bedside Glucose 96 mg/dl H 11/09/17 1612 Bedside Glucose 227 mg/dl H 11/09/17 2019 Bedside Glucose 133 mg/dl H 11/10/17 0932 ASSESSMENT: * 77yo T2DM female with adequate outpatient control per recent A1c * Continuing basal insulin, but at stressed dosing for RTC steroids and added NovoLog while metformin on hold for admission. * Pt has been receiving ~ 80 units of insulin per day with adequate control * 20 units of basal insulin with Lantus * 60 units of prandial/correctional insulin with NovoLog * Regimen is heavily weighted towards prandial insulin which is OK for this scenario as steroids have their most profound effect on post-prandial hyperglycemia. Do not want large doses of long acting basal insulin on board to cover steroid induced hyperglycemia as hypo may occur when steroids tapered quickly. * Pt NPO today for bronch. AM fasting BSG trending downwards from 180 --> 133 today after 2 doses of Lantus 20 units HS. Will lower basal insulin dose slightly to prevent hypo tomorrow AM. * Solu-Medrol continues at 40mg IV Q12H --> CF/CR will need "loosened" when steroids tapered. * If oral prednisone ordered, add once daily NPH as is most favorably mimics the pharmacokinetics of prednisone. PLAN FOR INPATIENT GLYCEMIC CONTROL: * Holding outpatient oral diabetes medications * Use NovoLog instead * Basal insulin -slightly decrease * Lantus SQ HS - 15 units for BSG < 180mg/dl (Lantus 18 units if blood sugar 180 mg/dL or greater) * Bolus insulin: no change * NovoLog per scale ACHS or Q6hrs while NPO * Goal Range: Low 110 mg/dL - High 140 mg/dL * Correction Factor: 12 mg/dL/unit * Nutritional / Prandial insulin per carb ratio of 1 unit per 3 grams CHO consumed OUTPATIENT RECOMMENDATIONS * Ms Rodriguez is well controlled on her home regimen. Recommend continuing regimen as long as she does not have any hypoglycemia at home.
--- NOTE | 2017-11-10 18:54 | Progress Note ---
Medicine Progress Note Date & Time of Visit: Nov 10, 2017 at 18:44. Subjective s/p Bronchoscopy states she continues to feel improve less dyspnea, cough no leg pain denies other symptoms Objective Last 8 Hrs Date Time Temp Pulse Resp B/P (MAP) Pulse Ox O2 Delivery O2 Flow Rate FiO2 11/10/17 15:30 36.3 71 18 133/76 (95) 94 Nasal Cannula 4.5 11/10/17 15:06 110 20 98 Mask 5.0 11/10/17 12:00 94 Nasal Cannula 5.0 11/10/17 11:20 36.2 69 16 158/82 (107) 90 Nasal Cannula 5.0 11/10/17 11:00 65 20 125/63 89 Nasal Cannula 4 11/10/17 11:00 Mask 11/10/17 10:55 73 24 134/69 89 Nasal Cannula 4 11/10/17 10:50 74 20 117/65 90 Oxymask 12 11/10/17 10:45 74 18 115/64 86 Oxymask 15 Physical Exam: General- oriented x 3, not in distress, speaks in sentences with some effort, no accessory muscle use Eyes- anicteric Lungs- mildly diminished, clear breath sounds bilaterally Heart- regular rhythm; no murmur, normal rate Abdomen- normal bowel sounds, soft, nontender Extremities- grade 1 edema right lower leg, no tenderness left lower leg normal Neuro- alert, oriented x 3; no gross focal neurologic deficits Skin- warm & dry Laboratory Results: Last 24 Hours Test 11/09/17 20:19 11/10/17 05:35 11/10/17 09:32 11/10/17 11:24 Bedside Glucose 227 mg/dl 133 mg/dl 139 mg/dl Prothrombin Time 25.3 SECONDS Prothromb Time International Ratio 2.5 Creatinine 0.45 mg/dl Est Creatinine Clear Calc Drug Dose 81.5 ml/min Estimated GFR () 111.2 Estimated GFR (Non- 96.0 Test 11/10/17 16:13 Bedside Glucose 280 mg/dl Date/Time Source Procedure Growth Status 11/10/17 10:43 Bronchial Washings Left Lower Lobe Fungal Smear Pending Received 11/10/17 10:43 Bronchial Washings Left Lower Lobe Fungal Culture Pending Received 11/10/17 10:43 Bronchial Washings Left Lower Lobe Acid Fast Stain Pending Received 11/10/17 10:43 Bronchial Washings Left Lower Lobe Mycobacterial Culture Pending Received 11/10/17 10:43 Bronchial Washings Left Lower Lobe Gram Stain Pending Received 11/10/17 10:43 Bronchial Washings Left Lower Lobe Bronchoalveolar Lavage Culture Pending Received Assessment & Plan This is a 77 year old female with a PMH of severe COPD and chronic respiratory failure on 4L of O2 continuously, DM2, HTN, and paroxysmal atrial fibrillation on long-term anticoagulation presents with worsening shortness of breath Acute on Chronic Hypoxic Respiratory Failure Secondary to Acute COPD Exacerbation likely from Acute Bronchitis - CXR: no acute findings Flu PCR: negative - repeat CXR: unchanged ABG compensated - Mucomyst BID ordered, increased dose continued Solumedrol 40mg q12h continued Doxy, Nebs q6h - Sputum culture: (+) Aspergillus Voricoanzole added ID consulted - vibrating vest humidified bipap ordered - s/p Bronchoscopy: (+) mucus plug removed - improving gradually wean off o2 accordingly appreciate Pulmonary SVC recommendations Paroxysmal Atrial Fibrillation on Long-term anticoagulation currently NSR continue Sotalol Coumadin held for Bronch INR > 2 HTN BP elevated, likely from IV steroids resume Amlodipine 5mg BP improving may increase Lisinopril to 20mg po BID if still uncontrolled DM2 Ha1c = 7.0% insulin sliding scale Lantus dose as per glycemic control pharmacist Right Lower Leg Swelling Venous Doppler US: pending DVT: no DVT DVT ppx INR therapeutic coumadin held for bronch FULL CODE Disposition anticipate d/c home when stable, cleared by Pulmonary PCP ff up with Dr. Leone Pulmonary ff up Current Inpatient Medications: Current Inpatient Medications Medications (Trade) Dose Ordered Sig/Liset Route Start Time Stop Time Status Last Admin Dose Admin Acetaminophen (Tylenol Tab) 650 mg Q4H PRN PO 10/31/17 14:15 11/30/17 14:14 11/02/17 08:07 650 MG Al Hydrox/Mg Hydrox/Simethicone (Maalox Max Susp) 15 ml Q4H PRN PO 10/31/17 14:15 11/30/17 14:14 Magnesium Hydroxide (Milk Of Magnesia Susp) 30 ml Q12H PRN PO 10/31/17 14:15 11/30/17 14:14 Ondansetron HCl (Zofran Inj) 4 mg Q6H PRN IV 10/31/17 14:15 11/30/17 14:14 Nitroglycerin (Nitrostat Tab) 0.4 mg UD PRN SL 10/31/17 14:15 11/30/17 14:14 Aspirin (Ecotrin Tab) 81 mg QAM PO 11/01/17 09:00 12/01/17 08:59 11/10/17 07:55 81 MG Polyethylene (Miralax Powder Packet) 17 gm DAILY PRN PO 10/31/17 14:15 11/30/17 14:14 Glucose (Glucose 40% Gel) 15-30 GRAMS 15 GRAMS... UD PRN PO 10/31/17 14:15 11/30/17 14:14 Glucose (Glucose Chew Tab) 4-8 Tablets 4 Tabl... UD PRN PO 10/31/17 14:15 11/30/17 14:14 Dextrose (Dextrose 50% 50ML Syringe) 25-50ML OF 50% DW IV FOR... UD PRN IV 10/31/17 14:15 11/30/17 14:14 Glucagon (Glucagon Inj) 1 mg UD PRN SQ 10/31/17 14:15 11/30/17 14:14 Miscellaneous Information (Consult Glycemic Management Pharmacy) 1 ea UD PRN N/A 10/31/17 15:08 11/30/17 15:07 Ipratropium E[place] (Atrovent 0.02% 0.5MG/2.5ML Neb) 0.5 mg Q6RWA INH 10/31/17 15:00 11/30/17 14:59 11/10/17 14:27 0.5 MG Levalbuterol (Xopenex 1.25MG/ 0.5ML Neb) 1.25 mg Q6RWA INH 10/31/17 15:00 11/30/17 14:59 11/10/17 14:27 1.25 MG Insulin Aspart (novoLOG ASPART) SLIDING SCALE ACHS SC 10/31/17 16:30 11/30/17 16:29 11/10/17 18:19 30 UNITS Benzonatate (Tessalon Perles Cap) 100 mg BID PO 10/31/17 21:00 11/30/17 20:59 11/10/17 07:54 100 MG Multivitamins (Multivitamin Tab) 1 tab DAILY PO 11/01/17 09:00 12/01/17 08:59 11/10/17 07:54 1 TAB Sotalol HCl (Betapace Tab) 80 mg Q12 PO 10/31/17 21:00 11/30/17 20:59 11/10/17 07:54 80 MG Warfarin Sodium (Coumadin Tab) 5 mg SuTh@1600 PO 11/02/17 16:00 12/02/17 15:59 Future Hold 11/06/17 16:09 5 MG Warfarin Sodium (Coumadin Tab) 2.5 mg MoTuWeFrSa@1600 PO 10/31/17 16:00 11/30/17 15:59 Future Hold 11/05/17 17:20 2.5 MG Guaifenesin/ Dextromethorphan (Robitussin-Dm Syrup) 5 ml Q6H PRN PO 10/31/17 15:45 11/30/17 15:44 11/01/17 12:27 5 ML Salmeterol Xinafoate/ Fluticasone (Advair Diskus 500/50 Inh) 1 puff BID INH 10/31/17 16:15 11/30/17 16:14 11/10/17 07:56 1 PUFF Levalbuterol (Xopenex 0.63 Mg/ 3 Ml Neb) 0.63 mg Q3R PRN INH 10/31/17 17:15 11/30/17 17:14 11/01/17 10:28 0.63 MG Lisinopril (Zestril Tab) 20 mg QAM PO 11/03/17 09:00 12/03/17 08:59 11/10/17 07:55 20 MG Menthol (Nice Aurelia) 1 aurelia PRN PRN AURELIA 11/02/17 10:30 12/02/17 10:29 Methylprednisolone Sodium Succinate 40 mg/Syringe 0.64 ml @ 1.5 mls/min Q12H IV 11/04/17 18:00 11/30/17 21:59 11/10/17 18:19 1.5 MLS/MIN Insulin Glargine (Lantus Solostar Pen) SEE PROTOCOL TEXT HS SC 11/06/17 21:00 12/06/17 20:59 11/09/17 20:39 20 UNITS Acetylcysteine (Mucomyst 20% Inh Soln) 5 ml Q12R INH 11/06/17 20:00 12/05/17 19:59 11/10/17 07:03 5 ML Miscellaneous Information 1 ea UD PRN N/A 11/08/17 08:30 12/08/17 08:29 Amlodipine Besylate (Norvasc Tab) 5 mg DAILY PO 11/09/17 09:00 12/01/17 08:59 11/10/17 07:55 5 MG Voriconazole (Vfend Tab) 200 mg BID PO 11/09/17 21:00 12/09/17 20:59 11/10/17 07:55 200 MG Parenteral Electrolyte Solution 1,000 ml @ 75 mls/hr [id number] IV 11/09/17 12:00 12/09/17 11:59 11/10/17 14:44 75 MLS/HR
[2017-11-10] MEDS: INSULIN GLARGINE SOLOSTAR 100 UNITS/ML 3 ML PEN SC SCH (21:18)
[2017-11-11] VITALS (14 sets, daily range): BP systolic 99–157; BP diastolic 49–76; PULSE 63–90; TEMP 36.3–36.8; O2SAT 88–96
[2017-11-11] MEDS: NORMOSOL R 1,000 ML IV SCH ×2 (03:32→17:00)
[2017-11-11] MEDS: METHYLPREDNISOLONE IV 40 MG in SYRINGE 0 ML IV SCH ×2 (05:43→17:01)
[2017-11-11] MEDS: ACETYLCYSTEINE 20% INHAL SOLN ***DISPENSED BY RESP. INH SCH ×2 (07:08→19:13)
[2017-11-11] MEDS: IPRATROPIUM BROMIDE NEB SOLN 0.02% 2.5 ML VIAL INH SCH ×3 (07:08→19:13)
[2017-11-11] MEDS: LEVALBUTEROL 1.25MG/0.5ML NEB INH SCH ×3 (07:08→19:13)
[2017-11-11 07:10] LABS: CREATININE 0.47 mg/dl (0.60-1.20)
[2017-11-11] MEDS: ASPIRIN 81 MG ECTAB PO SCH (07:52)
[2017-11-11] MEDS: FLUTICASONE/SALMETEROL (ADVAIR) 500/50 INH 14 PUFF INH SCH ×2 (07:52→21:31)
[2017-11-11] MEDS: BENZONATATE 100MG CAP PO SCH ×2 (07:52→21:31)
[2017-11-11] MEDS: SOTALOL HCL 80 MG TAB PO SCH ×2 (07:52→21:32)
[2017-11-11] MEDS: VORICONAZOLE 200 MG TAB PO SCH ×2 (07:52→21:31)
[2017-11-11] MEDS: AMLODIPINE BESYLATE 5 MG TAB PO SCH (07:52)
[2017-11-11] MEDS: LISINOPRIL 20 MG TAB PO SCH (07:52)
[2017-11-11] MEDS: MULTIVITAMIN TAB PO SCH (07:52)
[2017-11-11] MEDS: INSULIN ASPART 100 UNITS/ML 3 ML PEN SC SCH ×4 (08:22→21:35)
--- NOTE | 2017-11-11 09:37 | Pharmacy Progress Note ---
Pharmacy Glycemic Short Note 2 Date of Service Nov 11, 2017. OUTPATIENT ANTIDIABETIC REGIMEN: * Lantus 12 units SQ HS * Metformin 1,000mg PO BIDM * A1c = 7% on 11/01/17 Item Value Date Time Bedside Glucose 180 mg/dl H 11/09/17 0732 Bedside Glucose 226 mg/dl H 11/09/17 1141 Bedside Glucose 96 mg/dl H 11/09/17 1612 Bedside Glucose 227 mg/dl H 11/09/17 2019 Bedside Glucose 133 mg/dl H 11/10/17 0932 Bedside Glucose 139 mg/dl H 11/10/17 1124 Bedside Glucose 280 mg/dl H 11/10/17 1613 Bedside Glucose 261 mg/dl H 11/10/172015 Bedside Glucose 89 mg/dl 11/11/17 0719 ASSESSMENT: * 77yo T2DM female with adequate outpatient control per recent A1c * Continuing basal insulin, but at stressed dosing for RTC steroids and added NovoLog while metformin on hold for admission. * Pt has been receiving ~ 80 units of insulin per day with adequate control. Decreased total daily dose 11/10 d/t NPO in AM for bronch. * 20 units of basal insulin with Lantus * 60 units of prandial/correctional insulin with NovoLog * Regimen is heavily weighted towards prandial insulin which is OK for this scenario as steroids have their most profound effect on post-prandial hyperglycemia. Do not want large doses of long acting basal insulin on board to cover steroid induced hyperglycemia as hypo may occur when steroids tapered quickly. * Changes needed to insulin regimen * AM fasting BSG trending downwards from 180 --> 133 --> 89 mg/dl today. Lantus dose decreased last evening but will decrease further to prevent hypo tomorrow AM. * PM and HS BSGs elevated yesterday. Assuming that patient received a late lunch tray after bronch which was not covered. Will not tighten CF/CR at this time. * Solu-Medrol continues at 40mg IV Q12H --> CF/CR will need "loosened" when steroids tapered. * If oral prednisone ordered, add once daily NPH as is most favorably mimics the pharmacokinetics of prednisone. PLAN FOR INPATIENT GLYCEMIC CONTROL: * Holding outpatient oral diabetes medications * Use NovoLog instead * Basal insulin -slightly decrease * Lantus -1-8- -u-[id number]-i-[id number]- -S-Q- -H-S- - - ->- 15 units SQ HS * Bolus insulin: no change * NovoLog per scale ACHS or Q6hrs while NPO * Goal Range: Low 110 mg/dL - High 140 mg/dL * Correction Factor: 12 mg/dL/unit * Nutritional / Prandial insulin per carb ratio of 1 unit per 3 grams CHO consumed OUTPATIENT RECOMMENDATIONS * Ms Rodriguez is well controlled on her home regimen. Recommend continuing regimen as long as she does not have any hypoglycemia at home.
--- NOTE | 2017-11-11 15:05 | Progress Note ---
Subjective Date of Service: Nov 11, 2017. Subjective s/p bronch, fungal smear negative placed on vori over weekend for rare aspergillus from sputum, bronch culture now with likely pseudomonas species, final pending. afebrile, tolerating vori. bronch findings noted. Problem List Medical Problems: (1) Hyponatremia Status: Acute (2) Hypoxia Status: Chronic (3) SOB (shortness of breath) Status: Acute Objective Vital Signs Date Time Temp Pulse Resp B/P (MAP) Pulse Ox O2 Delivery O2 Flow Rate FiO2 11/11/17 12:00 Nasal Cannula 3.0 11/11/17 11:29 36.7 71 18 105/58 (74) 93 11/11/17 08:00 Nasal Cannula 3.0 11/11/17 07:51 36.5 71 18 144/64 (90) 94 3.0 11/11/17 07:09 90 18 94 Nasal Cannula 4.0 11/11/17 05:48 64 92 Nasal Cannula 3.5 11/11/17 05:44 88 Nasal Cannula 3.0 11/11/17 04:25 36.3 64 18 121/63 (82) 93 3.0 11/11/17 04:00 93 Nasal Cannula 3.0 11/11/17 03:38 36.3 76 18 126/76 (93) 96 Nasal Cannula 3.0 11/11/17 00:18 36.4 63 18 99/49 (66) 94 5.0 11/10/17 23:45 93 Nasal Cannula 4.5 11/10/17 20:00 94 Nasal Cannula 4.5 11/10/17 19:12 36.0 85 20 119/64 (82) 91 Nasal Cannula 4.5 11/10/17 19:05 82 20 94 Mask 5.0 11/10/17 16:00 94 Nasal Cannula 4.5 11/10/17 15:30 36.3 71 18 133/76 (95) 94 Nasal Cannula 4.5 11/10/17 15:06 110 20 98 Mask 5.0 Laboratory Results Item Value Date Time Gram Stain - Final Complete 11/05/17 1705 Sputum Expectorated Sputum Blood Culture - Final Complete 10/31/17 1150 Blood NO GROWTH Blood Culture - Final Complete 10/31/17 1110 Blood NO GROWTH Fungal Smear - Final Resulted 11/10/17 1043 Bronchial Washings Left Lower Lobe Gram Stain - Final Resulted 11/10/17 1043 Bronchial Washings Left Lower Lobe Last 24 Hours Test 11/10/17 16:13 11/10/17 20:16 11/11/17 06:32 11/11/17 07:19 Bedside Glucose 280 mg/dl 261 mg/dl 89 mg/dl Creatinine 0.47 mg/dl Est Creatinine Clear Calc Drug Dose 78.0 ml/min Estimated GFR () 109.7 Estimated GFR (Non- 94.6 Test 11/11/17 11:42 Bedside Glucose 121 mg/dl Assessment and Plan (1) COPD exacerbation Assessment & Plan: bronch culture with likely pseudomonas, will start emperic treatment pending culture. If no aspergillus noted on bronch specimen culture, can likely stop vori. will follow.
--- NOTE | 2017-11-11 15:35 | DIAGNOSTIC IMAGING REPORT ---
BILATERAL LOWER EXTREMITY VENOUS DOPPLER HISTORY: Acute bilateral lower extremity swelling r/o dvt COMPARISON STUDY: None. FINDINGS: There is normal compressibility, flow, and augmentation within the bilateral lower extremity deep venous systems. IMPRESSION: No sonographic evidence of deep venous thrombosis within the right or left lower extremity. Electronically signed by: Marquise Nguyen M.D. 11/11/2017 3:33 PM Dictated Date/Time: 11/11/2017 3:16 PM
--- NOTE | 2017-11-11 16:06 | Pulmonology Progress Note ---
Pulmonary Progress Note Date of Service Nov 11, 2017. Attending Dr. Gordillo Subjective Patient notes dramatic improvement in her respiratory status over the last 24 hours. Objective GENERAL : No acute distress. Pleasant. Sitting up in bed EYES: No icterus, gaze conjugate. Peripheral NOSE: No evidence of epistaxis. Nasal cannula in place MOUTH: No lesions or candidiasis NECK: Supple LUNGS: CTA HEART: Regular, rate controlled. Normal sinus rhythm. ABDOMEN: Soft, NT, ND, BS Present EXTREMITIES: No LE edema, pedal pulses intact NEURO: A&OX3 Assessment & Plan 77y/o female with hx of sever COPD admitted with respiratory insufiency: 1) Respiratory: patient has responded well to her bronchoscopy and now has been placed on pseudomonal coverage for possible growth via the BAL. I will leave the anti-biotics and ant-fungals at this time to ID but suggest we d/c voriconazole and what for the BAL sensitivities. 2) COPD: will drop her steroids to PO starting tomorrow Data Medications: Current Inpatient Medications Medications (Trade) Dose Ordered Sig/Liset Route Start Time Stop Time Status Last Admin Dose Admin Acetaminophen (Tylenol Tab) 650 mg Q4H PRN PO 10/31/17 14:15 11/30/17 14:14 11/02/17 08:07 650 MG Al Hydrox/Mg Hydrox/Simethicone (Maalox Max Susp) 15 ml Q4H PRN PO 10/31/17 14:15 11/30/17 14:14 Magnesium Hydroxide (Milk Of Magnesia Susp) 30 ml Q12H PRN PO 10/31/17 14:15 11/30/17 14:14 Ondansetron HCl (Zofran Inj) 4 mg Q6H PRN IV 10/31/17 14:15 11/30/17 14:14 Nitroglycerin (Nitrostat Tab) 0.4 mg UD PRN SL 10/31/17 14:15 11/30/17 14:14 Aspirin (Ecotrin Tab) 81 mg QAM PO 11/01/17 09:00 12/01/17 08:59 11/11/17 07:52 81 MG Polyethylene (Miralax Powder Packet) 17 gm DAILY PRN PO 10/31/17 14:15 11/30/17 14:14 Glucose (Glucose 40% Gel) 15-30 GRAMS 15 GRAMS... UD PRN PO 10/31/17 14:15 11/30/17 14:14 Glucose (Glucose Chew Tab) 4-8 Tablets 4 Tabl... UD PRN PO 10/31/17 14:15 11/30/17 14:14 Dextrose (Dextrose 50% 50ML Syringe) 25-50ML OF 50% DW IV FOR... UD PRN IV 10/31/17 14:15 11/30/17 14:14 Glucagon (Glucagon Inj) 1 mg UD PRN SQ 10/31/17 14:15 11/30/17 14:14 Miscellaneous Information (Consult Glycemic Management Pharmacy) 1 ea UD PRN N/A 10/31/17 15:08 11/30/17 15:07 Ipratropium [place] (Atrovent 0.02% 0.5MG/2.5ML Neb) 0.5 mg Q6RWA INH 10/31/17 15:00 11/30/17 14:59 11/11/17 07:08 0.5 MG Levalbuterol (Xopenex 1.25MG/ 0.5ML Neb) 1.25 mg Q6RWA INH 10/31/17 15:00 11/30/17 14:59 11/11/17 07:08 1.25 MG Insulin Aspart (novoLOG ASPART) SLIDING SCALE ACHS SC 10/31/17 16:30 11/30/17 16:29 11/11/17 12:04 14 UNITS Benzonatate (Tessalon Perles Cap) 100 mg BID PO 10/31/17 21:00 11/30/17 20:59 11/11/17 07:52 100 MG Multivitamins (Multivitamin Tab) 1 tab DAILY PO 11/01/17 09:00 12/01/17 08:59 11/11/17 07:52 1 TAB Sotalol HCl (Betapace Tab) 80 mg Q12 PO 10/31/17 21:00 11/30/17 20:59 11/11/17 07:52 80 MG Warfarin Sodium (Coumadin Tab) 5 mg SuTh@1600 PO 11/02/17 16:00 12/02/17 15:59 Future Hold 11/06/17 16:09 5 MG Warfarin Sodium (Coumadin Tab) 2.5 mg MoTuWeFrSa@1600 PO 10/31/17 16:00 11/30/17 15:59 Future Hold 11/05/17 17:20 2.5 MG Guaifenesin/ Dextromethorphan (Robitussin-Dm Syrup) 5 ml Q6H PRN PO 10/31/17 15:45 11/30/17 15:44 11/01/17 12:27 5 ML Salmeterol Xinafoate/ Fluticasone (Advair Diskus 500/50 Inh) 1 puff BID INH 10/31/17 16:15 11/30/17 16:14 11/11/17 07:52 1 PUFF Levalbuterol (Xopenex 0.63 Mg/ 3 Ml Neb) 0.63 mg Q3R PRN INH 10/31/17 17:15 11/30/17 17:14 11/01/17 10:28 0.63 MG Lisinopril (Zestril Tab) 20 mg QAM PO 11/03/17 09:00 12/03/17 08:59 11/11/17 07:52 20 MG Menthol (Nice Aurelia) 1 aurelia PRN PRN AURELIA 11/02/17 10:30 12/02/17 10:29 Methylprednisolone Sodium Succinate 40 mg/Syringe 0.64 ml @ 1.5 mls/min Q12H IV 11/04/17 18:00 11/30/17 21:59 11/11/17 05:43 1.5 MLS/MIN Acetylcysteine (Mucomyst 20% Inh Soln) 5 ml Q12R INH 11/06/17 20:00 12/05/17 19:59 11/11/17 07:08 5 ML Miscellaneous Information 1 ea UD PRN N/A 11/08/17 08:30 12/08/17 08:29 Amlodipine Besylate (Norvasc Tab) 5 mg DAILY PO 11/09/17 09:00 12/01/17 08:59 11/11/17 07:52 5 MG Voriconazole (Vfend Tab) 200 mg BID PO 11/09/17 21:00 12/09/17 20:59 11/11/17 07:52 200 MG Parenteral Electrolyte Solution 1,000 ml @ 75 mls/hr [id number] IV 11/09/17 12:00 12/09/17 11:59 11/11/17 03:32 75 MLS/HR Insulin Glargine (Lantus Solostar Pen) 15 units HS SC 11/11/17 21:00 12/11/17 20:59 Imipenem/ Cilastatin Sodium 500 mg/Dextrose 110 ml @ 100 mls/hr Q6H IV 11/11/17 15:15 11/18/17 15:14 I & O: 24-Hour Column 11/12/17 08:00 Intake Total 520 ml Output Total 650 ml Balance -130 ml Vital Signs: Date Time Temp Pulse Resp B/P (MAP) Pulse Ox O2 Delivery O2 Flow Rate FiO2 11/11/17 15:48 36.7 73 18 146/68 (94) 93 3.5 11/11/17 12:00 Nasal Cannula 3.0 11/11/17 11:29 36.7 71 18 105/58 (74) 93 11/11/17 08:00 Nasal Cannula 3.0 11/11/17 07:51 36.5 71 18 144/64 (90) 94 3.0 11/11/17 07:09 90 18 94 Nasal Cannula 4.0 11/11/17 05:48 64 92 Nasal Cannula 3.5 11/11/17 05:44 88 Nasal Cannula 3.0 11/11/17 04:25 36.3 64 18 121/63 (82) 93 3.0 11/11/17 04:00 93 Nasal Cannula 3.0 11/11/17 03:38 36.3 76 18 126/76 (93) 96 Nasal Cannula 3.0 11/11/17 00:18 36.4 63 18 99/49 (66) 94 5.0 11/10/17 23:45 93 Nasal Cannula 4.5 11/10/17 20:00 94 Nasal Cannula 4.5 11/10/17 19:12 36.0 85 20 119/64 (82) 91 Nasal Cannula 4.5 11/10/17 19:05 82 20 94 Mask 5.0 Laboratory Results: Last 24 Hours Test 11/10/17 16:13 11/10/17 20:16 11/11/17 06:32 11/11/17 07:19 Bedside Glucose 280 mg/dl 261 mg/dl 89 mg/dl Creatinine 0.47 mg/dl Est Creatinine Clear Calc Drug Dose 78.0 ml/min Estimated GFR () 109.7 Estimated GFR (Non- 94.6 Test 11/11/17 11:42 Bedside Glucose 121 mg/dl
[2017-11-11] MEDS: IMIPENEM/CILASTATIN IV 500 MG in DEXTROSE 5% 100ML 100 ML IV SCH ×2 (17:00→21:37)
--- NOTE | 2017-11-11 18:42 | Progress Note ---
Medicine Progress Note Date & Time of Visit: Nov 11, 2017 at 18:34. Subjective seen resting in bed, in good spirits states she feels much better no dyspnea reports R lower leg edema , no pain no other symptoms Objective Last 8 Hrs Date Time Temp Pulse Resp B/P (MAP) Pulse Ox O2 Delivery O2 Flow Rate FiO2 11/11/17 15:48 36.7 73 18 146/68 (94) 93 3.5 11/11/17 12:00 Nasal Cannula 3.0 11/11/17 11:29 36.7 71 18 105/58 (74) 93 Physical Exam: General- oriented x 3, not in distress, speaks in sentences with some effort, no accessory muscle use Eyes- anicteric Lungs- mildly diminished, clear breath sounds bilaterally, no rales/wheeze Heart- regular rhythm; no murmur, normal rate Abdomen- normal bowel sounds, soft, nontender Extremities- grade 1 edema right lower leg, no tenderness/warmth/erythema left lower leg normal Neuro- alert, oriented x 3; no gross focal neurologic deficits Skin- warm & dry Laboratory Results: Last 24 Hours Test 11/10/17 20:16 11/11/17 06:32 11/11/17 07:19 11/11/17 11:42 Bedside Glucose 261 mg/dl 89 mg/dl 121 mg/dl Creatinine 0.47 mg/dl Est Creatinine Clear Calc Drug Dose 78.0 ml/min Estimated GFR () 109.7 Estimated GFR (Non- 94.6 Test 11/11/17 16:35 Bedside Glucose 102 mg/dl Assessment & Plan This is a 77 year old female with a PMH of severe COPD and chronic respiratory failure on 4L of O2 continuously, DM2, HTN, and paroxysmal atrial fibrillation on long-term anticoagulation presents with worsening shortness of breath Acute on Chronic Hypoxic Respiratory Failure Secondary to Acute COPD Exacerbation likely from Acute Bronchitis - CXR: no acute findings Flu PCR: negative - repeat CXR: unchanged ABG compensated - Mucomyst BID ordered, increased dose given Solumedrol 40mg q12h continued Doxy, Nebs q6h - Sputum culture: (+) Aspergillus Bronch Wash culture: Pseudomonas Voricoanzole added Imipenem added ID consulted - vibrating vest humidified bipap ordered - s/p Bronchoscopy: (+) mucus plug removed - improving gradually wean off o2 accordingly appreciate Pulmonary SVC recommendations Right Lower Leg Edema - repeat US: no DVT - no signs of cellulitis, ankle/knee effusion - elevated leg warm compress - trial of lasix? Paroxysmal Atrial Fibrillation on Long-term anticoagulation currently NSR continue Sotalol INR > 2 repeat today, may resume coumadin per Pulm HTN BP elevated, likely from IV steroids resume Amlodipine 5mg BP improving may increase Lisinopril to 20mg po BID if still uncontrolled DM2 Ha1c = 7.0% insulin sliding scale Lantus dose as per glycemic control pharmacist DVT ppx INR therapeutic coumadin FULL CODE Disposition anticipate d/c home when stable, cleared by Pulmonary PCP ff up with Dr. Leone Pulmonary ff up Current Inpatient Medications: Current Inpatient Medications Medications (Trade) Dose Ordered Sig/Liset Route Start Time Stop Time Status Last Admin Dose Admin Acetaminophen (Tylenol Tab) 650 mg Q4H PRN PO 10/31/17 14:15 11/30/17 14:14 11/02/17 08:07 650 MG Al Hydrox/Mg Hydrox/Simethicone (Maalox Max Susp) 15 ml Q4H PRN PO 10/31/17 14:15 11/30/17 14:14 Magnesium Hydroxide (Milk Of Magnesia Susp) 30 ml Q12H PRN PO 10/31/17 14:15 11/30/17 14:14 Ondansetron HCl (Zofran Inj) 4 mg Q6H PRN IV 10/31/17 14:15 11/30/17 14:14 Nitroglycerin (Nitrostat Tab) 0.4 mg UD PRN SL 10/31/17 14:15 11/30/17 14:14 Aspirin (Ecotrin Tab) 81 mg QAM PO 11/01/17 09:00 12/01/17 08:59 11/11/17 07:52 81 MG Polyethylene (Miralax Powder Packet) 17 gm DAILY PRN PO 10/31/17 14:15 11/30/17 14:14 Glucose (Glucose 40% Gel) 15-30 GRAMS 15 GRAMS... UD PRN PO 10/31/17 14:15 11/30/17 14:14 Glucose (Glucose Chew Tab) 4-8 Tablets 4 Tabl... UD PRN PO 10/31/17 14:15 11/30/17 14:14 Dextrose (Dextrose 50% 50ML Syringe) 25-50ML OF 50% DW IV FOR... UD PRN IV 10/31/17 14:15 11/30/17 14:14 Glucagon (Glucagon Inj) 1 mg UD PRN SQ 10/31/17 14:15 11/30/17 14:14 Miscellaneous Information (Consult Glycemic Management Pharmacy) 1 ea UD PRN N/A 10/31/17 15:08 11/30/17 15:07 Ipratropium [place] (Atrovent 0.02% 0.5MG/2.5ML Neb) 0.5 mg Q6RWA INH 10/31/17 15:00 11/30/17 14:59 11/11/17 07:08 0.5 MG Levalbuterol (Xopenex 1.25MG/ 0.5ML Neb) 1.25 mg Q6RWA INH 10/31/17 15:00 11/30/17 14:59 11/11/17 07:08 1.25 MG Insulin Aspart (novoLOG ASPART) SLIDING SCALE ACHS SC 10/31/17 16:30 11/30/17 16:29 11/11/17 17:39 17 UNITS Benzonatate (Tessalon Perles Cap) 100 mg BID PO 10/31/17 21:00 11/30/17 20:59 11/11/17 07:52 100 MG Multivitamins (Multivitamin Tab) 1 tab DAILY PO 11/01/17 09:00 12/01/17 08:59 11/11/17 07:52 1 TAB Sotalol HCl (Betapace Tab) 80 mg Q12 PO 10/31/17 21:00 11/30/17 20:59 11/11/17 07:52 80 MG Warfarin Sodium (Coumadin Tab) 5 mg SuTh@1600 PO 11/02/17 16:00 12/02/17 15:59 Future Hold 11/06/17 16:09 5 MG Warfarin Sodium (Coumadin Tab) 2.5 mg MoTuWeFrSa@1600 PO 10/31/17 16:00 11/30/17 15:59 Future Hold 11/05/17 17:20 2.5 MG Guaifenesin/ Dextromethorphan (Robitussin-Dm Syrup) 5 ml Q6H PRN PO 10/31/17 15:45 11/30/17 15:44 11/01/17 12:27 5 ML Salmeterol Xinafoate/ Fluticasone (Advair Diskus 500/50 Inh) 1 puff BID INH 10/31/17 16:15 11/30/17 16:14 11/11/17 07:52 1 PUFF Levalbuterol (Xopenex 0.63 Mg/ 3 Ml Neb) 0.63 mg Q3R PRN INH 10/31/17 17:15 11/30/17 17:14 11/01/17 10:28 0.63 MG Lisinopril (Zestril Tab) 20 mg QAM PO 11/03/17 09:00 12/03/17 08:59 11/11/17 07:52 20 MG Menthol (Nice Aurelia) 1 aurelia PRN PRN AURELIA 11/02/17 10:30 12/02/17 10:29 Methylprednisolone Sodium Succinate 40 mg/Syringe 0.64 ml @ 1.5 mls/min Q12H IV 11/04/17 18:00 11/11/17 20:00 11/11/17 17:01 1.5 MLS/MIN Acetylcysteine (Mucomyst 20% Inh Soln) 5 ml Q12R INH 11/06/17 20:00 12/05/17 19:59 11/11/17 07:08 5 ML Miscellaneous Information 1 ea UD PRN N/A 11/08/17 08:30 12/08/17 08:29 Amlodipine Besylate (Norvasc Tab) 5 mg DAILY PO 11/09/17 09:00 12/01/17 08:59 11/11/17 07:52 5 MG Voriconazole (Vfend Tab) 200 mg BID PO 11/09/17 21:00 12/09/17 20:59 11/11/17 07:52 200 MG Parenteral Electrolyte Solution 1,000 ml @ 75 mls/hr [id number] IV 11/09/17 12:00 12/09/17 11:59 11/11/17 17:00 75 MLS/HR Insulin Glargine (Lantus Solostar Pen) 15 units HS SC 11/11/17 21:00 12/11/17 20:59 Imipenem/ Cilastatin Sodium 500 mg/Dextrose 110 ml @ 100 mls/hr Q6H IV 11/11/17 15:15 11/18/17 15:14 11/11/17 17:00 100 MLS/HR Prednisone (PredniSONE TAB) 40 mg QD@08 PO 11/12/17 08:00 11/19/17 07:59
[2017-11-11 19:27] LABS: INR 1.6 (0.9-1.1)
[2017-11-11] MEDS ORDERED: WARFARIN SOD 5 MG TAB PO ONE (20:00)
[2017-11-11] MEDS ORDERED: INSULIN GLARGINE SOLOSTAR 100 UNITS/ML 3 ML PEN SC SCH (21:00)
[2017-11-12] VITALS (14 sets, daily range): BP systolic 106–133; BP diastolic 52–67; PULSE 62–88; TEMP 36.2–36.7; O2SAT 88–96
[2017-11-12] MEDS: IMIPENEM/CILASTATIN IV 500 MG in DEXTROSE 5% 100ML 100 ML IV SCH ×2 (03:25→09:16)
[2017-11-12] MEDS: NORMOSOL R 1,000 ML IV SCH ×2 (05:50→20:35)
[2017-11-12 06:57] LABS: INR 1.5 (0.9-1.1)
[2017-11-12 07:25] LABS: CREATININE 0.48 mg/dl (0.60-1.20)
[2017-11-12] MEDS: IPRATROPIUM BROMIDE NEB SOLN 0.02% 2.5 ML VIAL INH SCH ×3 (07:26→19:59)
[2017-11-12] MEDS: LEVALBUTEROL 1.25MG/0.5ML NEB INH SCH ×3 (07:26→19:59)
[2017-11-12] MEDS: ACETYLCYSTEINE 20% INHAL SOLN ***DISPENSED BY RESP. INH SCH (07:26)
[2017-11-12] MEDS: ASPIRIN 81 MG ECTAB PO SCH (07:44)
[2017-11-12] MEDS: VORICONAZOLE 200 MG TAB PO SCH (07:44)
[2017-11-12] MEDS: LISINOPRIL 20 MG TAB PO SCH (07:44)
[2017-11-12] MEDS: BENZONATATE 100MG CAP PO SCH ×2 (07:44→20:36)
[2017-11-12] MEDS: MULTIVITAMIN TAB PO SCH (07:44)
[2017-11-12] MEDS: SOTALOL HCL 80 MG TAB PO SCH ×2 (07:44→20:36)
[2017-11-12] MEDS: FLUTICASONE/SALMETEROL (ADVAIR) 500/50 INH 14 PUFF INH SCH ×2 (07:44→20:36)
[2017-11-12] MEDS: AMLODIPINE BESYLATE 5 MG TAB PO SCH (07:44)
[2017-11-12] MEDS: INSULIN ASPART 100 UNITS/ML 3 ML PEN SC SCH ×4 (09:13→20:44)
[2017-11-12] MEDS ORDERED: HEPARIN SOD 5000 UNIT/0.5 ML CARP SQ ONE (10:52)
[2017-11-12] MEDS ORDERED: FUROSEMIDE 20 MG TAB PO ONE (11:00)
--- NOTE | 2017-11-12 11:01 | Progress Note ---
Medicine Progress Note Date & Time of Visit: Nov 12, 2017 at 10:54. Subjective seen resting in bed, comfortable in good spirits states she feels better no dyspnea, less cough r lower leg still swollen, but no pain/tenderness, denies abdominal pain, anorexia, weight loss no other symptoms Objective Last 8 Hrs Date Time Temp Pulse Resp B/P (MAP) Pulse Ox O2 Delivery O2 Flow Rate FiO2 11/12/17 08:00 Nasal Cannula 3.0 11/12/17 07:43 36.5 66 20 133/63 (86) 92 Nasal Cannula 3.5 11/12/17 07:26 82 18 96 Nasal Cannula 4.0 11/12/17 05:08 36.4 65 18 125/67 (86) 95 2.0 11/12/17 04:00 Nasal Cannula 3.5 Physical Exam: General- oriented x 3, not in distress, speaks in sentences with some effort, no accessory muscle use Eyes- anicteric Lungs- clear breath sounds bilaterally, no rales/wheeze Heart- regular rhythm; no murmur, normal rate Abdomen- normal bowel sounds, soft, nontender Extremities- grade 1 edema right lower leg, no tenderness/warmth/erythema left lower leg normal Neuro- alert, oriented x 3; no gross focal neurologic deficits Skin- warm & dry Laboratory Results: Last 24 Hours Test 11/11/17 11:42 11/11/17 16:35 11/11/17 19:02 11/11/17 20:58 Bedside Glucose 121 mg/dl 102 mg/dl 207 mg/dl Prothrombin Time 16.3 SECONDS Prothromb Time International Ratio 1.6 Test 11/12/17 06:33 11/12/17 07:53 11/12/17 10:35 Prothrombin Time 15.9 SECONDS Prothromb Time International Ratio 1.5 Creatinine 0.48 mg/dl Est Creatinine Clear Calc Drug Dose 76.4 ml/min Estimated GFR () 108.9 Estimated GFR (Non- 94.0 Bedside Glucose 80 mg/dl Assessment & Plan This is a 77 year old female with a PMH of severe COPD and chronic respiratory failure on 4L of O2 continuously, DM2, HTN, and paroxysmal atrial fibrillation on long-term anticoagulation presents with worsening shortness of breath Acute on Chronic Hypoxic Respiratory Failure Secondary to Acute COPD Exacerbation likely from Acute Bronchitis - CXR: no acute findings Flu PCR: negative - repeat CXR: unchanged ABG compensated - Mucomyst BID ordered, increased dose given Solumedrol 40mg q12h continued Doxy, Nebs q6h - Sputum culture: (+) Aspergillus Bronch Wash culture: Pseudomonas Voricoanzole added Imipenem added ID consulted - vibrating vest humidified bipap ordered - s/p Bronchoscopy: (+) mucus plug removed Bronchial washing: (+) Pseudomonas, MDR - started on Imipenem day 2 on Voriconazole PO ID on board - improving gradually wean off o2 accordingly appreciate Pulmonary SVC recommendations Right Lower Leg Edema - initial US: no dvt, (+) There is an elliptical hypoechoic collection within the proximal medial calf measuring 30 x 69 x 5 mm. This could represent a small hematoma or localized edema. - repeat US: no DVT - no visible hematoma, no tenderness/warmth no signs of cellulitis, ankle/knee effusion - from IV steroids? fluids? increased amlodipine? however, edema is unilateral Check CT abdomen/pelvis to r/o malignancy--> lymphatic obstruction? - Lasix 20mg po one elevated leg warm compress Paroxysmal Atrial Fibrillation on Long-term anticoagulation currently NSR continue Sotalol coumadin was held for Bronch INR 1.6 to 1.5 increase coumadin to 5mg po daily monitor HTN BP elevated, likely from IV steroids resume Amlodipine 5mg BP improving may increase Lisinopril to 20mg po BID if still uncontrolled DM2 Ha1c = 7.0% insulin sliding scale Lantus dose as per glycemic control pharmacist DVT ppx INR subtherapeutic heparin SC BID until therapeutic continue coumadin FULL CODE Disposition anticipate d/c home when stable, cleared by Pulmonary may need IV vs. PO antibiotics, awaiting ID recommendations will need repeat 2 step on the day of discharge, may need higher o2 supplement requirement while ambulating and a new portable oxygen PCP ff up with Dr. Leone Pulmonary ff up ID ff up case management on board Current Inpatient Medications: Current Inpatient Medications Medications (Trade) Dose Ordered Sig/Liset Route Start Time Stop Time Status Last Admin Dose Admin Acetaminophen (Tylenol Tab) 650 mg Q4H PRN PO 10/31/17 14:15 11/30/17 14:14 11/02/17 08:07 650 MG Al Hydrox/Mg Hydrox/Simethicone (Maalox Max Susp) 15 ml Q4H PRN PO 10/31/17 14:15 11/30/17 14:14 Magnesium Hydroxide (Milk Of Magnesia Susp) 30 ml Q12H PRN PO 10/31/17 14:15 11/30/17 14:14 Ondansetron HCl (Zofran Inj) 4 mg Q6H PRN IV 10/31/17 14:15 11/30/17 14:14 Nitroglycerin (Nitrostat Tab) 0.4 mg UD PRN SL 10/31/17 14:15 11/30/17 14:14 Aspirin (Ecotrin Tab) 81 mg QAM PO 11/01/17 09:00 12/01/17 08:59 11/12/17 07:44 81 MG Polyethylene (Miralax Powder Packet) 17 gm DAILY PRN PO 10/31/17 14:15 11/30/17 14:14 Glucose (Glucose 40% Gel) 15-30 GRAMS 15 GRAMS... UD PRN PO 10/31/17 14:15 11/30/17 14:14 Glucose (Glucose Chew Tab) 4-8 Tablets 4 Tabl... UD PRN PO 10/31/17 14:15 11/30/17 14:14 Dextrose (Dextrose 50% 50ML Syringe) 25-50ML OF 50% DW IV FOR... UD PRN IV 10/31/17 14:15 11/30/17 14:14 Glucagon (Glucagon Inj) 1 mg UD PRN SQ 10/31/17 14:15 11/30/17 14:14 Miscellaneous Information (Consult Glycemic Management Pharmacy) 1 ea UD PRN N/A 10/31/17 15:08 11/30/17 15:07 Ipratropium [place] (Atrovent 0.02% 0.5MG/2.5ML Neb) 0.5 mg Q6RWA INH 10/31/17 15:00 11/30/17 14:59 11/12/17 07:26 0.5 MG Levalbuterol (Xopenex 1.25MG/ 0.5ML Neb) 1.25 mg Q6RWA INH 10/31/17 15:00 11/30/17 14:59 11/12/17 07:26 1.25 MG Insulin Aspart (novoLOG ASPART) SLIDING SCALE ACHS SC 10/31/17 16:30 11/30/17 16:29 11/12/17 09:13 17 UNITS Benzonatate (Tessalon Perles Cap) 100 mg BID PO 10/31/17 21:00 11/30/17 20:59 11/12/17 07:44 100 MG Multivitamins (Multivitamin Tab) 1 tab DAILY PO 11/01/17 09:00 12/01/17 08:59 11/12/17 07:44 1 TAB Sotalol HCl (Betapace Tab) 80 mg Q12 PO 10/31/17 21:00 11/30/17 20:59 11/12/17 07:44 80 MG Warfarin Sodium (Coumadin Tab) 5 mg SuTh@1600 PO 11/02/17 16:00 12/02/17 15:59 Future Hold 11/06/17 16:09 5 MG Warfarin Sodium (Coumadin Tab) 2.5 mg MoTuWeFrSa@1600 PO 10/31/17 16:00 11/30/17 15:59 Future Hold 11/05/17 17:20 2.5 MG Guaifenesin/ Dextromethorphan (Robitussin-Dm Syrup) 5 ml Q6H PRN PO 10/31/17 15:45 11/30/17 15:44 11/01/17 12:27 5 ML Salmeterol Xinafoate/ Fluticasone (Advair Diskus 500/50 Inh) 1 puff BID INH 10/31/17 16:15 11/30/17 16:14 11/12/17 07:44 1 PUFF Levalbuterol (Xopenex 0.63 Mg/ 3 Ml Neb) 0.63 mg Q3R PRN INH 10/31/17 17:15 11/30/17 17:14 11/01/17 10:28 0.63 MG Lisinopril (Zestril Tab) 20 mg QAM PO 11/03/17 09:00 12/03/17 08:59 11/12/17 07:44 20 MG Menthol (Nice Aurelia) 1 aurelia PRN PRN AURELIA 11/02/17 10:30 12/02/17 10:29 Acetylcysteine (Mucomyst 20% Inh Soln) 5 ml Q12R INH 11/06/17 20:00 12/05/17 19:59 11/12/17 07:26 5 ML Miscellaneous Information 1 ea UD PRN N/A 11/08/17 08:30 12/08/17 08:29 Amlodipine Besylate (Norvasc Tab) 5 mg DAILY PO 11/09/17 09:00 12/01/17 08:59 11/12/17 07:44 5 MG Voriconazole (Vfend Tab) 200 mg BID PO 11/09/17 21:00 12/09/17 20:59 11/12/17 07:44 200 MG Parenteral Electrolyte Solution 1,000 ml @ 75 mls/hr [id number] IV 11/09/17 12:00 12/09/17 11:59 11/12/17 05:50 75 MLS/HR Insulin Glargine (Lantus Solostar Pen) 15 units HS SC 11/11/17 21:00 12/11/17 20:59 11/11/17 21:35 15 UNITS Imipenem/ Cilastatin Sodium 500 mg/Dextrose 110 ml @ 100 mls/hr Q6H IV 11/11/17 15:15 11/18/17 15:14 11/12/17 09:16 100 MLS/HR Prednisone (PredniSONE TAB) 40 mg QD@08 PO 11/12/17 08:00 11/19/17 07:59 11/12/17 07:44 40 MG
--- NOTE | 2017-11-12 11:18 | Progress Note ---
Subjective Date of Service: Nov 12, 2017. Subjective Pt evaluation today including: conversation w/ patient, physical exam, chart review, lab review pt seen post bronchoscopy, feeling much better. states cough much improved. still on O2nc but improving. denies f/c. no cp, no sob. bronch culture with resistant pseudomonas, has been on emperic imipenem, resistant to this. remains on vori, fungal smear and culture negative. afebrile. all remaining ros reviewed and are negative. Problem List Medical Problems: (1) Hyponatremia Status: Acute (2) Hypoxia Status: Chronic (3) SOB (shortness of breath) Status: Acute Objective Vital Signs Date Time Temp Pulse Resp B/P (MAP) Pulse Ox O2 Delivery O2 Flow Rate FiO2 11/12/17 08:00 Nasal Cannula 3.0 11/12/17 07:43 36.5 66 20 133/63 (86) 92 Nasal Cannula 3.5 11/12/17 07:26 82 18 96 Nasal Cannula 4.0 11/12/17 05:08 36.4 65 18 125/67 (86) 95 2.0 11/12/17 04:00 Nasal Cannula 3.5 11/12/17 00:13 36.2 63 18 118/65 (82) 93 3.5 11/12/17 00:00 Nasal Cannula 3.5 11/11/17 20:27 36.8 87 18 157/75 (102) 92 3.5 11/11/17 20:22 93 Nasal Cannula 3.0 11/11/17 19:13 82 18 94 Nasal Cannula 4.0 11/11/17 16:02 93 Nasal Cannula 3.5 11/11/17 15:48 36.7 73 18 146/68 (94) 93 3.5 11/11/17 12:00 Nasal Cannula 3.0 11/11/17 11:29 36.7 71 18 105/58 (74) 93 Physical Exam General Appearance: WD/WN, no apparent distress Eyes: normal inspection, EOMI Neck: supple Respiratory/Chest: normal breath sounds, no respiratory distress, + decreased breath sounds Cardiovascular: regular rate, rhythm, no edema Abdomen: soft Extremities: non-tender, no pedal edema Neurologic/Psychiatric: alert, oriented x 3 Skin: normal color Laboratory Results Item Value Date Time Gram Stain - Final Complete 11/10/17 1043 Bronchial Washings Left Lower Lobe Blood Culture - Final Complete 10/31/17 1150 Blood NO GROWTH Blood Culture - Final Complete 10/31/17 1110 Blood NO GROWTH Fungal Smear - Final Resulted 11/10/17 1043 Bronchial Washings Left Lower Lobe Last 24 Hours Test 11/11/17 11:42 11/11/17 16:35 11/11/17 19:02 11/11/17 20:58 Bedside Glucose 121 mg/dl 102 mg/dl 207 mg/dl Prothrombin Time 16.3 SECONDS Prothromb Time International Ratio 1.6 Test 11/12/17 06:33 11/12/17 07:53 11/12/17 10:35 Prothrombin Time 15.9 SECONDS Prothromb Time International Ratio 1.5 Creatinine 0.48 mg/dl Est Creatinine Clear Calc Drug Dose 76.4 ml/min Estimated GFR () 108.9 Estimated GFR (Non- 94.0 Bedside Glucose 80 mg/dl Assessment and Plan (1) COPD exacerbation Assessment & Plan: will change to cefepime 1 g bid, will need 10 days. will stop vori, doubt aspergillus on sputum culture is pathogen.
[2017-11-12 12:28] LABS: BASO % 0.1 %; BASO ABS # 0.01 K/uL (0-0.2); HEMATOCRIT 37.5 % (37-47); HEMOGLOBIN 12.4 g/dL (12.0-16.0); IG# 0.03 K/uL (0.00-0.02); LYMPH % 4.4 %; LYMPH ABS # 0.61 K/uL (1.2-3.4); MEAN CELL VOLUME 85.2 fL (80-100); MEAN CORPUSCULAR HEMOGLOBIN 28.2 pg (25-34); MEAN CORPUSCULAR HGB CONC 33.1 g/dl (32-36); MEAN PLATELET VOLUME 10.8 fL (7.4-10.4); MONO % 4.5 %; MONO ABS # 0.63 K/uL (0.11-0.59); NEUT % 90.8 %; NEUT ABS # 12.72 K/uL (1.4-6.5); PLATELET COUNT 328 K/uL (130-400); RED CELL DISTRIBUTION WIDTH CV 15.7 % (11.5-14.5); RED CELL DISTRIBUTION WIDTH SD 47.9 fL (36.4-46.3)
[2017-11-12 12:46] LABS: CREATININE 0.42 mg/dl (0.60-1.20); POTASSIUM 3.2 mmol/L (3.5-5.1)
--- NOTE | 2017-11-12 14:56 | Pharmacy Progress Note ---
Pharmacy Glycemic Short Note 2 Date of Service Nov 12, 2017. OUTPATIENT ANTIDIABETIC REGIMEN: * Lantus 12 units SQ HS * Metformin 1,000mg PO BIDM * A1c = 7% on 11/01/17 ASSESSMENT: * 77yo T2DM female with adequate outpatient control per recent A1c * BSGs look good thus far today. * Will move Lantus administration from bedtime to dinner time, as patient seems to be hyperglycemic at bedtime and in the 80s in the morning. * SoluMedrol was discontinued last evening and patient is now on Prednisone once daily. May consider switching from Lantus to NPH if BSGs labile, as NPH most favorably mimics the pharmacokinetics of prednisone. * Novolog parameters loosened slightly, as patient is expected to require less insulin now that steroids have been decreased. PLAN FOR INPATIENT GLYCEMIC CONTROL: * Holding outpatient oral diabetes medications * Use NovoLog instead * Basal insulin -slightly decrease * Lantus -1-5- -u-n-i-[id number]-s- -S-Q- -H-S- - - ->- 12 units SQ daily with dinner * Bolus insulin: no change * NovoLog per scale ACHS or Q6hrs while NPO * Goal Range: Low 110 mg/dL - High 140 mg/dL * Correction Factor: 15 mg/dL/unit * Nutritional / Prandial insulin per carb ratio of 1 unit per 5 grams CHO consumed OUTPATIENT RECOMMENDATIONS * Ms Rodriguez is well controlled on her home regimen. Recommend continuing regimen as long as she does not have any hypoglycemia at home.
--- NOTE | 2017-11-12 15:12 | DIAGNOSTIC IMAGING REPORT ---
ABDOMEN AND PELVIS CT WITHOUT CONTRAST CT DOSE: 237.74 mGy.cm HISTORY: Right leg swelling. r/o intraabdominal mass/malignancy TECHNIQUE: Multiaxial CT images of the abdomen and pelvis were performed without contrast. A dose lowering technique was utilized adhering to the principles of ALARA. COMPARISON STUDY: None. FINDINGS: A few linear densities at the lung bases consistent with subsegmental atelectasis. No pneumoperitoneum. No pneumatosis. Small amount of soft tissue gas within the left lower quadrant abdominal wall likely due to prior medication injection. No suspicious lytic or blastic osseous lesions. Mild diffuse body wall edema. Suboptimal evaluation for an intra-abdominal abnormality due to the lack of intravenous and oral contrast. However, the unenhanced liver, gallbladder, spleen, adrenal glands, and pancreas are unremarkable. No retroperitoneal lymphadenopathy or a retroperitoneal mass. Punctate cortical calcification within the right kidney. No hydronephrosis. No renal calculi. Pelvic floor collapse. The bladder is unremarkable. The uterus and ovaries are within normal limits for age. No significant pelvic free fluid. No definite bowel wall thickening or obstruction. A few colonic diverticula. Moderate well-formed stool seen throughout the colon. Normal appendix. IMPRESSION: 1. Mild diffuse body wall edema. 2. No bowel wall thickening or obstruction. 3. No definite intraabdominal masses on this noncontrast study. 4. Additional findings as described above. Electronically signed by: Robert Zendejas M.D. 11/12/2017 3:10 PM Dictated Date/Time: 11/12/2017 3:02 PM
[2017-11-12] MEDS: CEFEPIME IV 1,000 MG in SYRINGE 0 ML IV SCH (15:33)
[2017-11-12] MEDS ORDERED: CEFEPIME IV 1,000 MG in DEXTROSE 5% 100ML 100 ML IV SCH (16:00)
[2017-11-12] MEDS ORDERED: WARFARIN SOD 5 MG TAB PO SCH (16:00)
[2017-11-12] MEDS ORDERED: INSULIN GLARGINE SOLOSTAR 100 UNITS/ML 3 ML PEN SC SCH (17:00)
[2017-11-12] MEDS: HEPARIN SOD 5000 UNIT/0.5 ML CARP SQ SCH (20:48)
[2017-11-13] VITALS (12 sets, daily range): BP systolic 112–148; BP diastolic 62–76; PULSE 61–101; TEMP 36.3–36.7; O2SAT 83–96; Ht 157.5 cm; Wt 52.2 kg
[2017-11-13] MEDS: CEFEPIME IV 1,000 MG in SYRINGE 0 ML IV SCH ×2 (04:36→15:37)
[2017-11-13] MEDS: LEVALBUTEROL 1.25MG/0.5ML NEB INH SCH ×3 (07:08→19:39)
[2017-11-13] MEDS: IPRATROPIUM BROMIDE NEB SOLN 0.02% 2.5 ML VIAL INH SCH ×3 (07:08→19:39)
[2017-11-13] MEDS: AMLODIPINE BESYLATE 5 MG TAB PO SCH (07:41)
[2017-11-13] MEDS: SOTALOL HCL 80 MG TAB PO SCH ×2 (07:41→20:37)
[2017-11-13] MEDS: MULTIVITAMIN TAB PO SCH (07:41)
[2017-11-13] MEDS: ASPIRIN 81 MG ECTAB PO SCH (07:41)
[2017-11-13] MEDS: FLUTICASONE/SALMETEROL (ADVAIR) 500/50 INH 14 PUFF INH SCH ×2 (07:41→20:36)
[2017-11-13] MEDS: LISINOPRIL 20 MG TAB PO SCH (07:42)
[2017-11-13] MEDS: BENZONATATE 100MG CAP PO SCH ×2 (07:42→20:36)
[2017-11-13 07:43] LABS: BASO % 0.1 %; BASO ABS # 0.01 K/uL (0-0.2); EOS % 0.3 %; EOS ABS # 0.04 K/uL (0-0.5); HEMATOCRIT 37.8 % (37-47); HEMOGLOBIN 12.1 g/dL (12.0-16.0); IG# 0.07 K/uL (0.00-0.02); LYMPH % 16.3 %; MEAN CELL VOLUME 86.5 fL (80-100); MEAN CORPUSCULAR HEMOGLOBIN 27.7 pg (25-34); MEAN PLATELET VOLUME 10.9 fL (7.4-10.4); MONO % 8.1 %; MONO ABS # 1.09 K/uL (0.11-0.59); NEUT % 74.7 %; NEUT ABS # 10.09 K/uL (1.4-6.5); PLATELET COUNT 300 K/uL (130-400); RED CELL DISTRIBUTION WIDTH CV 15.6 % (11.5-14.5); RED CELL DISTRIBUTION WIDTH SD 49.4 fL (36.4-46.3)
[2017-11-13 07:49] LABS: INR 3.5 (0.9-1.1)
[2017-11-13 08:22] LABS: CALCIUM 7.5 mg/dl (8.5-10.1); CREATININE 0.4 mg/dl (0.60-1.20); POTASSIUM 3.1 mmol/L (3.5-5.1)
[2017-11-13] MEDS ORDERED: POTASSIUM CHLORIDE 10 MEQ TABCR PO STA (08:48)
[2017-11-13] MEDS: INSULIN ASPART 100 UNITS/ML 3 ML PEN SC SCH ×4 (08:51→20:47)
[2017-11-13] MEDS: HEPARIN SOD 5000 UNIT/0.5 ML CARP SQ SCH (08:52)
[2017-11-13] MEDS: NORMOSOL R 1,000 ML IV SCH (08:56)
[2017-11-13] MEDS: POTASSIUM CHLR 10 MEQ / WTR 10 MEQ in PREMIXED WATER 100 ML IV SCH ×3 (09:36→13:23)
--- NOTE | 2017-11-13 13:36 | Progress Note ---
Internal Med Progress Note Date of Service: Nov 13, 2017. Provider Documentation: SUBJECTIVE: Seen and examined at bedside Doing better today Was Hypoglycemic and hypokalemic this morning Denies chest pain, SOB, dizziness minimal intermittent cough Only requiring 2L to maintain sats OBJECTIVE: Vital Signs-as noted below Physical Exam: General Appearance:Moderately built and nourished, no apparent distress Head: normocephalic, Atraumatic Eyes: normal inspection, EOMI, PERRL Neck: supple, Trachea midline Respiratory/Chest: Decreased breath sounds, CTA Cardiovascular: S1, S2, No murmur Abdomen/GI:Soft, Non tender, Bowel sounds present Extremities/Musculoskelatal:normal inspection, 1+ B/L edema R > L Neurologic/Psych:AAOX3, grossly no focal neurological deficits Skin: normal color, warm Lab data as noted below. ASSESSMENT & PLAN: Patient is a 77 yr female with a PMH of severe COPD and chronic respiratory failure on 4L of O2 continuously, DM II, HTN, and paroxysmal atrial fibrillation on long-term anticoagulation presents with worsening shortness of breath Acute on Chronic Hypoxic Respiratory Failure Secondary to Acute COPD Exacerbation likely from Acute Bronchitis On Chronic Oxygen S/P Bronchoscopy: (+) mucus plug removed CXR: no acute findings Flu PCR: negative Continue PO prednisone Day # 2 Continue inhalers, Nebs PRN Sputum culture: (+) Aspergillus; Bronch Wash culture: Pseudomonas, mdr Continue cefepime Day # 2/10 Appreciate Pulm and ID help Wean off oxygen as able to maintain sats 88-92% Right Lower Leg Edema Likely secondary to IVF, meds no signs of cellulitis Venous Doppler: No DVT elevate legs P. Atrial Fibrillation on Long-term anticoagulation currently NSR continue Sotalol INR: 3.5 today Hold Coumadin Hypokalemia: Replace and monitor HTN continue Amlodipine, Lisinopril monitor DM II Ha1c: 7.0 ISS, Lantus per glycemic control pharmacist Hold PO meds DVT Px INR supra therapeutic Code Status: Full Code Disposition anticipate d/c home when stable will need repeat 2 step prior to discharge PCP ff up with Dr. Leone Pulmonary and ID follow up Vital Signs: Date Time Temp Pulse Resp B/P (MAP) Pulse Ox O2 Delivery O2 Flow Rate FiO2 11/13/17 16:11 36.6 79 18 132/71 (91) 90 Nasal Cannula 2.0 11/13/17 16:00 90 Nasal Cannula 2.0 11/13/17 14:30 101 83 11/13/17 14:23 82 16 93 Nasal Cannula 2.0 11/13/17 12:02 36.3 70 16 112/62 (79) 92 2.0 11/13/17 12:01 92 Nasal Cannula 2.0 11/13/17 08:07 92 Nasal Cannula 2.0 11/13/17 07:50 36.3 61 18 148/76 (100) 95 2.0 11/13/17 07:16 61 16 95 Nasal Cannula 2.0 11/13/17 04:00 Nasal Cannula 2.0 11/13/17 00:01 Nasal Cannula 2.0 11/12/17 23:02 36.5 62 18 121/66 (84) 91 Nasal Cannula 2.0 11/12/17 20:01 88 16 94 Nasal Cannula 4.0 11/12/17 20:00 91 Nasal Cannula 2.0 11/12/17 19:54 36.6 79 19 106/52 (70) 91 Nasal Cannula 2.0 Lab Results: Results Past 24 Hours Test 11/12/17 20:25 11/13/17 06:49 11/13/17 07:39 11/13/17 07:52 Range/Units Bedside Glucose 191 65 71 70-90 mg/dl White Blood Count 13.50 4.8-10.8 K/uL Red Blood Count 4.37 4.2-5.4 M/uL Hemoglobin 12.1 12.0-16.0 g/dL Hematocrit 37.8 37-47 % Mean Corpuscular Volume 86.5 80-100 fL Mean Corpuscular Hemoglobin 27.7 25-34 pg Mean Corpuscular Hemoglobin Concent 32.0 32-36 g/dl Platelet Count 300 130-400 K/uL Mean Platelet Volume 10.9 7.4-10.4 fL Neutrophils (%) (Auto) 74.7 % Lymphocytes (%) (Auto) 16.3 % Monocytes (%) (Auto) 8.1 % Eosinophils (%) (Auto) 0.3 % Basophils (%) (Auto) 0.1 % Neutrophils # (Auto) 10.09 1.4-6.5 K/uL Lymphocytes # (Auto) 2.20 1.2-3.4 K/uL Monocytes # (Auto) 1.09 0.11-0.59 K/uL Eosinophils # (Auto) 0.04 0-0.5 K/uL Basophils # (Auto) 0.01 0-0.2 K/uL RDW Standard Deviation 49.4 36.4-46.3 fL RDW Coefficient of Variation 15.6 11.5-14.5 % Immature Granulocyte % (Auto) 0.5 % Immature Granulocyte # (Auto) 0.07 0.00-0.02 K/uL Prothrombin Time 35.4 9.0-12.0 SECONDS Prothromb Time International Ratio 3.5 0.9-1.1 Sodium Level 140 136-145 mmol/L Potassium Level 3.1 3.5-5.1 mmol/L Chloride Level 101 98-107 mmol/L Carbon Dioxide Level 37 21-32 mmol/L Anion Gap 2.0 3-11 mmol/L Blood Urea Nitrogen 17 7-18 mg/dl Creatinine 0.40 0.60-1.20 mg/dl Est Creatinine Clear Calc Drug Dose 91.7 ml/min Estimated GFR () 115.6 Estimated GFR (Non- 99.8 BUN/Creatinine Ratio 41.8 10-20 Random Glucose 53 70-99 mg/dl Calcium Level 7.5 8.5-10.1 mg/dl Test 11/13/17 08:47 11/13/17 11:41 11/13/17 16:42 Range/Units Bedside Glucose 183 133 236 70-90 mg/dl
--- NOTE | 2017-11-13 13:47 | Pharmacy Progress Note ---
Pharmacy Glycemic Short Note 2 Date of Service Nov 13, 2017. OUTPATIENT ANTIDIABETIC REGIMEN: * Lantus 12 units SQ HS * Metformin 1,000mg PO BIDM * A1c = 7% on 11/01/17 ASSESSMENT: 11/13/17 * Fasting BSG was low this morning, 65mg/dL. * Lantus will be further reduced with this evening's dose and Novolog parameters were loosened this morning. 11/12/17 * 77yo T2DM female with adequate outpatient control per recent A1c * BSGs look good thus far today. * Will move Lantus administration from bedtime to dinner time, as patient seems to be hyperglycemic at bedtime and in the 80s in the morning. * SoluMedrol was discontinued last evening and patient is now on Prednisone once daily. May consider switching from Lantus to NPH if BSGs labile, as NPH most favorably mimics the pharmacokinetics of prednisone. * Novolog parameters loosened slightly, as patient is expected to require less insulin now that steroids have been decreased. PLAN FOR INPATIENT GLYCEMIC CONTROL: * Holding outpatient oral diabetes medications * Use NovoLog instead * Basal insulin -slightly decrease * Lantus -1-2- -u-n-i-t-s- -S-Q- -H-S- - - ->- 10 units SQ daily with dinner * Bolus insulin: loosen * NovoLog per scale ACHS or Q6hrs while NPO * Goal Range: Low 110 mg/dL - High 140 mg/dL * Correction Factor: 20 mg/dL/unit * Nutritional / Prandial insulin per carb ratio of 1 unit per 8 grams CHO consumed OUTPATIENT RECOMMENDATIONS * Ms Rodriguez is well controlled on her home regimen. Recommend continuing regimen as long as she does not have any hypoglycemia at home.
--- NOTE | 2017-11-13 16:33 | Pulmonology Progress Note ---
Pulmonary Progress Note Date of Service Nov 13, 2017. Attending Dr. Gordillo Subjective This is a 77 yo female that initially was treated for acute respiratory failure who was found to have acute mucoid impaction. Sputum culture initially grew out aspergillus fumigates and patient was started on Voriconazole IV which was then converted to PO per discussion with Dr. Malone. CTA was negative for PE but was positive for bibasilar mucoid impaction. She underwent aggressive pulmonary toilet and showed some improvement. She then underwent flexible bronchoscopy with Dr. Gordillo and was found to have MDRO with pseudomonas. She was seen by Dr. Malone who suggested 10 days of IV Cefepime and stop the voriconazole. Patient continues to be O2 dependant at rest and with ambulation. I did walk her in the halls and she was able to ambulate 2 laps without supplemental O2 but desaturated to 84% (without dyspnea). I then placed her on 2 L/min via nasal cannula and she immediately improved to 92%. We then ambulated another 3 laps and she did not desaturate below 90% Patient denies significant cough and has no further sputum production. She has no fever or chills. She is tolerating flutter valve and incentive spirometry. She was using a vibration vest but has developed ecchymosis along her bilateral flanks. I will discontinue this therapy. She has no other acute complaints other than malaise and fatigue with ambulation. Objective GENERAL : No acute distress. Pleasant. Purse lipped breathing EYES: No icterus, gaze conjugate. Peripheral NOSE: No evidence of epistaxis. Nasal cannula in place MOUTH: No lesions or candidiasis NECK: Supple LUNGS: CTA. No bronchospasm or rales or rhonchi. Good aeration in all lung bartlett HEART: Regular, rate controlled. Normal sinus rhythm. ABDOMEN: Soft, NT, ND, BS Present EXTREMITIES: Right LE edema with petechiae. Improved since last seen. Pedal pulses intact bilaterally NEURO: A&OX3 Assessment & Plan 77y/o female with hx of severe COPD admitted with respiratory insufiency: Hypoxic respiratory failure * Initially found to have Aspergillus in sputum * This was treated with voriconazole IV then converted to p.o. * There is a question as to whether this was colonized * Treatment with voriconazole has since been discontinued per infectious disease * Appreciate Dr. Malone's input * Bronchoscopy with Dr. Gordillo on 11/10/2017 grew multidrug- resistant Pseudomonas * Patient started on IV cefepime -continue for 14 days per discussion with Dr. Malone * Consider single-lumen PICC line to discharge home for ongoing antibiotics Severe COPD * Continue with bronchodilators * Continue supplemental O2 to maintain sats between 88 and 92% * Ambulatory pulse ox by this provider today reveals a patient will need 2 L/ min via nasal cannula 24/03 * Follow-up as an outpatient to titrate supplemental O2 and further outpatient studies * Continue p.o. prednisone taper Mucoid impaction * Continue incentive spirometry, flutter valve, bronchodilators * May benefit from nebulizer for home treatments for pulmonary toilet * Outpatient follow-up * Status post bronchoscopy 11/10/2017 DVT prophylaxis * Lower extremity duplex negative 2 * Patient had been on warfarin. This was held for bronchoscopy. Should be restarted * Heparin 3 times daily subcutaneously for now Thank you for including us in the care of this patient. Please refer to Dr. Gordillo's addendum for further recommendations. We will sign off on this patient at this time. Please feel free to reconsult as needed. Patient was seen examined and case reviewed agree with the above assessment. Data Medications: Current Inpatient Medications Medications (Trade) Dose Ordered Sig/Liset Route Start Time Stop Time Status Last Admin Dose Admin Acetaminophen (Tylenol Tab) 650 mg Q4H PRN PO 10/31/17 14:15 11/30/17 14:14 11/02/17 08:07 650 MG Al Hydrox/Mg Hydrox/Simethicone (Maalox Max Susp) 15 ml Q4H PRN PO 10/31/17 14:15 11/30/17 14:14 Magnesium Hydroxide (Milk Of Magnesia Susp) 30 ml Q12H PRN PO 10/31/17 14:15 11/30/17 14:14 Ondansetron HCl (Zofran Inj) 4 mg Q6H PRN IV 10/31/17 14:15 11/30/17 14:14 Nitroglycerin (Nitrostat Tab) 0.4 mg UD PRN SL 10/31/17 14:15 11/30/17 14:14 Aspirin (Ecotrin Tab) 81 mg QAM PO 11/01/17 09:00 12/01/17 08:59 11/13/17 07:41 81 MG Polyethylene (Miralax Powder Packet) 17 gm DAILY PRN PO 10/31/17 14:15 11/30/17 14:14 Glucose (Glucose 40% Gel) 15-30 GRAMS 15 GRAMS... UD PRN PO 10/31/17 14:15 11/30/17 14:14 Glucose (Glucose Chew Tab) 4-8 Tablets 4 Tabl... UD PRN PO 10/31/17 14:15 11/30/17 14:14 Dextrose (Dextrose 50% 50ML Syringe) 25-50ML OF 50% DW IV FOR... UD PRN IV 10/31/17 14:15 11/30/17 14:14 Glucagon (Glucagon Inj) 1 mg UD PRN SQ 10/31/17 14:15 11/30/17 14:14 Miscellaneous Information (Consult Glycemic Management Pharmacy) 1 ea UD PRN N/A 10/31/17 15:08 11/30/17 15:07 Ipratropium [place] (Atrovent 0.02% 0.5MG/2.5ML Neb) 0.5 mg Q6RWA INH 10/31/17 15:00 11/30/17 14:59 11/13/17 14:20 0.5 MG Levalbuterol (Xopenex 1.25MG/ 0.5ML Neb) 1.25 mg Q6RWA INH 10/31/17 15:00 11/30/17 14:59 11/13/17 14:20 1.25 MG Insulin Aspart (novoLOG ASPART) SLIDING SCALE ACHS SC 10/31/17 16:30 11/30/17 16:29 11/13/17 12:50 3 UNITS Benzonatate (Tessalon Perles Cap) 100 mg BID PO 10/31/17 21:00 11/30/17 20:59 11/13/17 07:42 100 MG Multivitamins (Multivitamin Tab) 1 tab DAILY PO 11/01/17 09:00 12/01/17 08:59 11/13/17 07:41 1 TAB Sotalol HCl (Betapace Tab) 80 mg Q12 PO 10/31/17 21:00 11/30/17 20:59 11/13/17 07:41 80 MG Warfarin Sodium (Coumadin Tab) 5 mg SuTh@1600 PO 11/02/17 16:00 12/02/17 15:59 Future Hold 11/06/17 16:09 5 MG Warfarin Sodium (Coumadin Tab) 2.5 mg MoTuWeFrSa@1600 PO 10/31/17 16:00 11/30/17 15:59 Future Hold 11/05/17 17:20 2.5 MG Guaifenesin/ Dextromethorphan (Robitussin-Dm Syrup) 5 ml Q6H PRN PO 10/31/17 15:45 11/30/17 15:44 11/01/17 12:27 5 ML Salmeterol Xinafoate/ Fluticasone (Advair Diskus 500/50 Inh) 1 puff BID INH 10/31/17 16:15 11/30/17 16:14 11/13/17 07:41 1 PUFF Levalbuterol (Xopenex 0.63 Mg/ 3 Ml Neb) 0.63 mg Q3R PRN INH 10/31/17 17:15 11/30/17 17:14 11/01/17 10:28 0.63 MG Lisinopril (Zestril Tab) 20 mg QAM PO 11/03/17 09:00 12/03/17 08:59 11/13/17 07:42 20 MG Menthol (Nice Aurelia) 1 aurelia PRN PRN AURELIA 11/02/17 10:30 12/02/17 10:29 Acetylcysteine (Mucomyst 20% Inh Soln) 5 ml Q12R INH 11/06/17 20:00 12/05/17 19:59 Future Hold 11/12/17 07:26 5 ML Amlodipine Besylate (Norvasc Tab) 5 mg DAILY PO 11/09/17 09:00 12/01/17 08:59 11/13/17 07:41 5 MG Prednisone (PredniSONE TAB) 40 mg QD@08 PO 11/12/17 08:00 11/19/17 07:59 11/13/17 07:41 40 MG Warfarin Sodium (Coumadin Tab) 5 mg DAILY@16 PO 11/12/17 16:00 12/12/17 15:59 Future Hold 11/12/17 15:35 5 MG Cefepime HCl 1000 mg/Syringe 11 ml @ 5.5 mls/min Q12H IV 11/12/17 16:00 11/19/17 15:59 11/13/17 15:37 5.5 MLS/MIN Insulin Glargine (Lantus Solostar Pen) 10 units QDD SC 11/13/17 17:00 12/13/17 16:59 I & O: 24-Hour Column 11/14/17 07:59 Intake Total 720 ml Output Total 1725 ml Balance -1005 ml Vital Signs: Date Time Temp Pulse Resp B/P (MAP) Pulse Ox O2 Delivery O2 Flow Rate FiO2 11/13/17 14:30 101 83 11/13/17 14:23 82 16 93 Nasal Cannula 2.0 11/13/17 12:02 36.3 70 16 112/62 (79) 92 2.0 11/13/17 12:01 92 Nasal Cannula 2.0 11/13/17 08:07 92 Nasal Cannula 2.0 11/13/17 07:50 36.3 61 18 148/76 (100) 95 2.0 11/13/17 07:16 61 16 95 Nasal Cannula 2.0 11/13/17 04:00 Nasal Cannula 2.0 11/13/17 00:01 Nasal Cannula 2.0 11/12/17 23:02 36.5 62 18 121/66 (84) 91 Nasal Cannula 2.0 11/12/17 20:01 88 16 94 Nasal Cannula 4.0 11/12/17 20:00 91 Nasal Cannula 2.0 11/12/17 19:54 36.6 79 19 106/52 (70) 91 Nasal Cannula 2.0 11/12/17 18:00 91 Nasal Cannula 2.0 11/12/17 16:10 36.7 81 18 110/62 (78) 92 Nasal Cannula 4.0 11/12/17 16:00 92 Nasal Cannula 4.0 Laboratory Results: Last 24 Hours Test 11/12/17 16:33 11/12/17 20:25 11/13/17 06:49 11/13/17 07:39 Bedside Glucose 139 mg/dl 191 mg/dl 65 mg/dl White Blood Count 13.50 K/uL Red Blood Count 4.37 M/uL Hemoglobin 12.1 g/dL Hematocrit 37.8 % Mean Corpuscular Volume 86.5 fL Mean Corpuscular Hemoglobin 27.7 pg Mean Corpuscular Hemoglobin Concent 32.0 g/dl Platelet Count 300 K/uL Mean Platelet Volume 10.9 fL Neutrophils (%) (Auto) 74.7 % Lymphocytes (%) (Auto) 16.3 % Monocytes (%) (Auto) 8.1 % Eosinophils (%) (Auto) 0.3 % Basophils (%) (Auto) 0.1 % Neutrophils # (Auto) 10.09 K/uL Lymphocytes # (Auto) 2.20 K/uL Monocytes # (Auto) 1.09 K/uL Eosinophils # (Auto) 0.04 K/uL Basophils # (Auto) 0.01 K/uL RDW Standard Deviation 49.4 fL RDW Coefficient of Variation 15.6 % Immature Granulocyte % (Auto) 0.5 % Immature Granulocyte # (Auto) 0.07 K/uL Prothrombin Time 35.4 SECONDS Prothromb Time International Ratio 3.5 Sodium Level 140 mmol/L Potassium Level 3.1 mmol/L Chloride Level 101 mmol/L Carbon Dioxide Level 37 mmol/L Anion Gap 2.0 mmol/L Blood Urea Nitrogen 17 mg/dl Creatinine 0.40 mg/dl Est Creatinine Clear Calc Drug Dose 91.7 ml/min Estimated GFR () 115.6 Estimated GFR (Non- 99.8 BUN/Creatinine Ratio 41.8 Random Glucose 53 mg/dl Calcium Level 7.5 mg/dl Test 11/13/17 07:52 11/13/17 08:47 11/13/17 11:41 Bedside Glucose 71 mg/dl 183 mg/dl 133 mg/dl
[2017-11-13] MEDS ORDERED: INSULIN GLARGINE SOLOSTAR 100 UNITS/ML 3 ML PEN SC SCH (17:00)
[2017-11-14] VITALS (8 sets, daily range): BP systolic 102–150; BP diastolic 57–81; PULSE 64–88; TEMP 36.3–36.8; O2SAT 92–96
[2017-11-14] MEDS: CEFEPIME IV 1,000 MG in SYRINGE 0 ML IV SCH ×2 (04:14→15:46)
[2017-11-14] MEDS: INSULIN ASPART 100 UNITS/ML 3 ML PEN SC SCH ×4 (06:30→21:03)
[2017-11-14 07:48] LABS: EOS % 1.3 %; EOS ABS # 0.15 K/uL (0-0.5); HEMATOCRIT 36.2 % (37-47); IG# 0.04 K/uL (0.00-0.02); LYMPH ABS # 2.65 K/uL (1.2-3.4); MEAN CELL VOLUME 85.6 fL (80-100); MEAN CORPUSCULAR HEMOGLOBIN 28.4 pg (25-34); MEAN CORPUSCULAR HGB CONC 33.1 g/dl (32-36); MEAN PLATELET VOLUME 10.7 fL (7.4-10.4); MONO % 7.6 %; MONO ABS # 0.88 K/uL (0.11-0.59); NEUT % 67.8 %; NEUT ABS # 7.79 K/uL (1.4-6.5); PLATELET COUNT 288 K/uL (130-400); RED CELL DISTRIBUTION WIDTH SD 49.2 fL (36.4-46.3); WHITE BLOOD COUNT 11.51 K/uL (4.8-10.8)
[2017-11-14 07:59] LABS: INR 3.2 (0.9-1.1)
[2017-11-14] MEDS: AMLODIPINE BESYLATE 5 MG TAB PO SCH (08:03)
[2017-11-14] MEDS: LISINOPRIL 20 MG TAB PO SCH (08:03)
[2017-11-14] MEDS: MULTIVITAMIN TAB PO SCH (08:03)
[2017-11-14] MEDS: SOTALOL HCL 80 MG TAB PO SCH ×2 (08:04→20:59)
[2017-11-14] MEDS: ASPIRIN 81 MG ECTAB PO SCH (08:04)
[2017-11-14] MEDS: FLUTICASONE/SALMETEROL (ADVAIR) 500/50 INH 14 PUFF INH SCH ×2 (08:04→20:59)
[2017-11-14] MEDS: BENZONATATE 100MG CAP PO SCH ×2 (08:04→20:59)
[2017-11-14 08:24] LABS: CALCIUM 7.7 mg/dl (8.5-10.1); CREATININE 0.51 mg/dl (0.60-1.20)
--- NOTE | 2017-11-14 11:04 | Pharmacy Progress Note ---
Glycemic Control Progress Note Date of Service Nov 14, 2017. Scope Glycemic Pharmacist consulted for glycemic control to write orders per [facility] inpatient glycemic control protocol. Objective Accuchecks BSG (last 24hrs): Test 11/13/17 11:41 11/13/17 16:42 11/13/17 20:42 11/14/17 07:08 Bedside Glucose 133 mg/dl (70-90) 236 mg/dl (70-90) 148 mg/dl (70-90) Random Glucose 71 mg/dl (70-99) Test 11/14/17 07:48 Bedside Glucose 64 mg/dl (70-90) HbA1c: Test 11/01/17 05:21 Hemoglobin A1c 7.0 % (4.5-5.6) H Recent Pertinent Medications The patient is currently receiving: * Basal insulin: Lantus 10 units every 24 hours * Correctional Insulin: Novolog Correction per scale ACHS Goal Range: Low 110 mg/dL - High 140 mg/dL Correction Factor: 20 mg/dL/unit * Prandial insulin: Per carb ratio of 1 unit per 8 grams CHO consumed Outpatient Anti-Diabetic Meds Oral Agents Basal Insulin Assessment & Plan ASSESSMENT: * 77 yo F admitted on 10/31/17 for acute on chronic respiratory failure 2nd COPD exacerbation * Has been on higher than physiologic doses of steroids since admission 2 weeks ago, currently on prednisone 40 mg po daily. Anticipate need for prolonged steroid taper * AM fasting BSG again with hypoglycemia less than 70 mg/dL - likely 2nd steroid effects of prednisone wearing off overnight and Lantus lasting 24 hours. * Will not provide additional Lantus today to prevent repeat AM hypoglycemia * Will initiate NPH tomorrow AM to better mimic pharmacokinetics of prednisone , as anticipate prolonged tx with prednisone * Post-prandial BSG's elevated, likely steroid-induced. OK to tighten carb ratio * Will tighten correction factor today as well as no additional basal insulin ordered and lunch BSG elevated to 193 mg/dL, but will increase goal range to help prevent hypoglycemia PLAN FOR INPATIENT GLYCEMIC CONTROL: * Oral Agents * Continue to hold outpatient oral diabetes medications. * Basal insulin. Discontinue Lantus. Start NPH 317 AM as follows: * 6 units for BSG less than 70 mg/dL * 8 units for BSG 70-109 mg/dL * 10 units for BSG 110-140 mg/dL * 12 units for BSG greater than 140 mg/dL * Bolus insulin * NovoLog per scale ACHS or Q6hrs while NPO * Increase Goal Range: Low 120 mg/dL - High 160 mg/dL * Tighten Correction Factor: 15 mg/dL/unit * Tighten Nutritional / Prandial insulin per carb ratio of 1 unit per 7 grams CHO consumed Discharge recommendations * Depending on plan for steroids, patient may benefit from short-term switch to NPH qAM as outpatient (as compared to Lantus qHS) to better manage post- prandial hyperglycemia and prevent AM hypoglycemia * Please note that the plan above was derived based on current level of insulin resistance and hospital stress. These recommendations are appropriate for inpatient admission only. Plan of care upon discharge will need to be reassessed to avoid potential outpatient hypo/hyperglycemia. Thank you.
[2017-11-14] MEDS: LEVALBUTEROL 1.25MG/0.5ML NEB INH SCH ×2 (14:32→19:50)
[2017-11-14] MEDS: IPRATROPIUM BROMIDE NEB SOLN 0.02% 2.5 ML VIAL INH SCH ×2 (14:32→19:50)
--- NOTE | 2017-11-14 16:32 | Progress Note ---
Internal Med Progress Note Date of Service: Nov 14, 2017. Provider Documentation: SUBJECTIVE: Seen and examined at bedside Feels well No new complaints Denies chest pain, SOB, dizziness minimal intermittent cough Family at bedside R leg swelling improving OBJECTIVE: Vital Signs-as noted below Physical Exam: General Appearance:Moderately built and nourished, no apparent distress Head: normocephalic, Atraumatic Eyes: normal inspection, EOMI, PERRL Neck: supple, Trachea midline Respiratory/Chest: Decreased breath sounds, CTA Cardiovascular: S1, S2, No murmur Abdomen/GI:Soft, Non tender, Bowel sounds present Extremities/Musculoskelatal:normal inspection, 1+ B/L edema R > L Neurologic/Psych:AAOX3, grossly no focal neurological deficits Skin: normal color, warm Lab data as noted below. ASSESSMENT & PLAN: Patient is a 77 yr female with a PMH of severe COPD and chronic respiratory failure on 4L of O2 continuously, DM II, HTN, and paroxysmal atrial fibrillation on long-term anticoagulation presents with worsening shortness of breath Acute on Chronic Hypoxic Respiratory Failure Secondary to Acute COPD Exacerbation likely from Acute Bronchitis On Chronic Oxygen S/P Bronchoscopy: (+) mucus plug removed CXR: no acute findings Flu PCR: negative Continue PO prednisone Day # 3 Continue inhalers, Nebs PRN Sputum culture: (+) Aspergillus; Bronch Wash culture: Pseudomonas, mdr Continue cefepime Day # 3/10 Appreciate Pulm and ID help Wean off oxygen as able to maintain sats 88-92% needs 2 step prior to discharge Right Lower Leg Edema Likely secondary to IVF, meds no signs of cellulitis Venous Doppler: No DVT elevate legs Improving P. Atrial Fibrillation on Long-term anticoagulation currently NSR continue Sotalol INR: 3.2 today Plan to resume Coumadin tomorrow Hypokalemia: resolved monitor HTN continue Amlodipine, Lisinopril monitor DM II Ha1c: 7.0 ISS, Lantus per glycemic control pharmacist Hold PO meds DVT Px INR supra therapeutic Code Status: Full Code Disposition anticipate d/c home when stable will need repeat 2 step prior to discharge PCP ff up with Dr. Leone Pulmonary and ID follow up Vital Signs: Date Time Temp Pulse Resp B/P (MAP) Pulse Ox O2 Delivery O2 Flow Rate FiO2 11/14/17 15:40 36.6 78 20 102/57 (72) 93 Nasal Cannula 2.0 11/14/17 14:32 83 16 94 Nasal Cannula 2.0 11/14/17 12:00 Nasal Cannula 2.0 11/14/17 11:34 36.4 72 22 150/73 (98) 94 Nasal Cannula 2.0 11/14/17 08:00 Nasal Cannula 2.0 11/14/17 08:00 36.8 73 18 121/76 (91) 96 Nasal Cannula 2.0 11/14/17 04:15 Nasal Cannula 2.0 11/14/17 00:15 Nasal Cannula 2.0 11/14/17 00:00 36.5 68 18 125/81 (96) 94 Nasal Cannula 2.0 11/13/17 20:43 36.7 74 18 122/67 (85) 93 Nasal Cannula 2.0 11/13/17 20:00 91 Nasal Cannula 2.0 11/13/17 19:39 83 16 96 Nasal Cannula 2.0 Lab Results: Results Past 24 Hours Test 11/13/17 16:42 11/13/17 20:42 11/14/17 07:08 11/14/17 07:48 Range/Units Bedside Glucose 236 148 64 70-90 mg/dl White Blood Count 11.51 4.8-10.8 K/uL Red Blood Count 4.23 4.2-5.4 M/uL Hemoglobin 12.0 12.0-16.0 g/dL Hematocrit 36.2 37-47 % Mean Corpuscular Volume 85.6 80-100 fL Mean Corpuscular Hemoglobin 28.4 25-34 pg Mean Corpuscular Hemoglobin Concent 33.1 32-36 g/dl Platelet Count 288 130-400 K/uL Mean Platelet Volume 10.7 7.4-10.4 fL Neutrophils (%) (Auto) 67.8 % Lymphocytes (%) (Auto) 23.0 % Monocytes (%) (Auto) 7.6 % Eosinophils (%) (Auto) 1.3 % Basophils (%) (Auto) 0.0 % Neutrophils # (Auto) 7.79 1.4-6.5 K/uL Lymphocytes # (Auto) 2.65 1.2-3.4 K/uL Monocytes # (Auto) 0.88 0.11-0.59 K/uL Eosinophils # (Auto) 0.15 0-0.5 K/uL Basophils # (Auto) 0.00 0-0.2 K/uL RDW Standard Deviation 49.2 36.4-46.3 fL RDW Coefficient of Variation 16.0 11.5-14.5 % Immature Granulocyte % (Auto) 0.3 % Immature Granulocyte # (Auto) 0.04 0.00-0.02 K/uL Prothrombin Time 32.6 9.0-12.0 SECONDS Prothromb Time International Ratio 3.2 0.9-1.1 Sodium Level 139 136-145 mmol/L Potassium Level 4.0 3.5-5.1 mmol/L Chloride Level 101 98-107 mmol/L Carbon Dioxide Level 35 21-32 mmol/L Anion Gap 2.0 3-11 mmol/L Blood Urea Nitrogen 18 7-18 mg/dl Creatinine 0.51 0.60-1.20 mg/dl Est Creatinine Clear Calc Drug Dose 71.9 ml/min Estimated GFR () 106.7 Estimated GFR (Non- 92.1 BUN/Creatinine Ratio 35.4 10-20 Random Glucose 71 70-99 mg/dl Calcium Level 7.7 8.5-10.1 mg/dl Magnesium Level 2.4 1.8-2.4 mg/dl Test 11/14/17 11:54 Range/Units Bedside Glucose 193 70-90 mg/dl
[2017-11-14] MEDS ORDERED: INSULIN GLARGINE SOLOSTAR 100 UNITS/ML 3 ML PEN SC SCH (17:00)
[2017-11-15] VITALS (9 sets, daily range): BP systolic 101–126; BP diastolic 50–70; PULSE 62–93; TEMP 36.4–36.6; O2SAT 93–95
[2017-11-15] MEDS: CEFEPIME IV 1,000 MG in SYRINGE 0 ML IV SCH ×2 (05:07→15:52)
[2017-11-15 06:35] LABS: BASO % 0.1 %; BASO ABS # 0.01 K/uL (0-0.2); EOS % 1.3 %; EOS ABS # 0.15 K/uL (0-0.5); HEMATOCRIT 37.8 % (37-47); HEMOGLOBIN 11.8 g/dL (12.0-16.0); IG# 0.04 K/uL (0.00-0.02); LYMPH % 24.3 %; MEAN CELL VOLUME 85.5 fL (80-100); MEAN CORPUSCULAR HEMOGLOBIN 26.7 pg (25-34); MEAN CORPUSCULAR HGB CONC 31.2 g/dl (32-36); MEAN PLATELET VOLUME 10.9 fL (7.4-10.4); MONO % 7.1 %; MONO ABS # 0.82 K/uL (0.11-0.59); NEUT % 66.9 %; PLATELET COUNT 296 K/uL (130-400); RED CELL DISTRIBUTION WIDTH CV 15.9 % (11.5-14.5); RED CELL DISTRIBUTION WIDTH SD 49.1 fL (36.4-46.3); WHITE BLOOD COUNT 11.52 K/uL (4.8-10.8)
[2017-11-15 06:53] LABS: CALCIUM 7.8 mg/dl (8.5-10.1); CREATININE 0.46 mg/dl (0.60-1.20); POTASSIUM 3.9 mmol/L (3.5-5.1)
[2017-11-15] MEDS: LEVALBUTEROL 1.25MG/0.5ML NEB INH SCH ×3 (06:56→19:35)
[2017-11-15] MEDS: IPRATROPIUM BROMIDE NEB SOLN 0.02% 2.5 ML VIAL INH SCH ×3 (06:56→19:33)
[2017-11-15] MEDS: FLUTICASONE/SALMETEROL (ADVAIR) 500/50 INH 14 PUFF INH SCH ×2 (07:59→20:02)
[2017-11-15] MEDS: LISINOPRIL 20 MG TAB PO SCH (07:59)
[2017-11-15] MEDS: BENZONATATE 100MG CAP PO SCH ×2 (08:00→20:03)
[2017-11-15] MEDS: ASPIRIN 81 MG ECTAB PO SCH (08:00)
[2017-11-15] MEDS: SOTALOL HCL 80 MG TAB PO SCH ×2 (08:00→20:02)
[2017-11-15] MEDS: AMLODIPINE BESYLATE 5 MG TAB PO SCH (08:00)
[2017-11-15] MEDS: MULTIVITAMIN TAB PO SCH (08:00)
[2017-11-15] MEDS: INSULIN ASPART 100 UNITS/ML 3 ML PEN SC SCH ×4 (08:04→20:00)
[2017-11-15] MEDS: INSULIN HUMAN NPH SC SCH (08:04)
--- NOTE | 2017-11-15 11:09 | Progress Note ---
Internal Med Progress Note Date of Service: Nov 15, 2017. Provider Documentation: SUBJECTIVE: Seen and examined at bedside No new complaints Denies chest pain, SOB, dizziness less cough doing well today OBJECTIVE: Vital Signs-as noted below Physical Exam: General Appearance:Moderately built and nourished, no apparent distress Head: normocephalic, Atraumatic Eyes: normal inspection, EOMI, PERRL Neck: supple, Trachea midline Respiratory/Chest: Decreased breath sounds, CTA Cardiovascular: S1, S2, No murmur Abdomen/GI:Soft, Non tender, Bowel sounds present Extremities/Musculoskelatal:normal inspection, 1+ B/L edema R > L Neurologic/Psych:AAOX3, grossly no focal neurological deficits Skin: normal color, warm Lab data as noted below. ASSESSMENT & PLAN: Patient is a 77 yr female with a PMH of severe COPD and chronic respiratory failure on 4L of O2 continuously, DM II, HTN, and paroxysmal atrial fibrillation on long-term anticoagulation presents with worsening shortness of breath Acute on Chronic Hypoxic Respiratory Failure Secondary to Acute COPD Exacerbation likely from Acute Bronchitis On Chronic Oxygen S/P Bronchoscopy: (+) mucus plug removed CXR: no acute findings Flu PCR: negative Continue PO prednisone Day # 4/5 Continue inhalers, Nebs PRN Sputum culture: (+) Aspergillus; Bronch Wash culture: Pseudomonas, mdr Continue cefepime Day # 4/10 Appreciate Pulm and ID help Wean off oxygen as able to maintain sats 88-92% needs 2 step prior to discharge Right Lower Leg Edema Likely secondary to IVF, meds no signs of cellulitis Venous Doppler: No DVT elevate legs Improving P. Atrial Fibrillation on Long-term anticoagulation currently NSR continue Sotalol Monitor INR: 2.0 today resume Coumadin today Hypokalemia: resolved monitor HTN continue Amlodipine, Lisinopril monitor DM II Ha1c: 7.0 ISS, Lantus per glycemic control pharmacist Hold PO meds DVT Px on coumadin Code Status: Full Code Disposition anticipate d/c home when stable will need repeat 2 step prior to discharge PCP ff up with Dr. Leone Pulmonary and ID follow up Vital Signs: Date Time Temp Pulse Resp B/P (MAP) Pulse Ox O2 Delivery O2 Flow Rate FiO2 11/15/17 08:30 Nasal Cannula 2.0 11/15/17 08:01 36.5 69 22 125/67 (86) 94 Nasal Cannula 2.0 11/15/17 06:57 72 16 94 Nasal Cannula 2.0 11/15/17 04:49 36.5 66 14 122/70 (87) 95 Nasal Cannula 2.0 11/15/17 04:00 Nasal Cannula 2.0 11/15/17 00:00 Nasal Cannula 2.0 11/14/17 23:49 36.3 64 12 116/69 (85) 94 Nasal Cannula 2.0 11/14/17 20:00 Nasal Cannula 2.0 11/14/17 19:53 76 16 94 Nasal Cannula 2.0 11/14/17 19:27 36.8 88 20 133/72 (92) 92 Nasal Cannula 2.0 11/14/17 16:00 Nasal Cannula 2.0 11/14/17 15:40 36.6 78 20 102/57 (72) 93 Nasal Cannula 2.0 11/14/17 14:32 83 16 94 Nasal Cannula 2.0 11/14/17 12:00 Nasal Cannula 2.0 11/14/17 11:34 36.4 72 22 150/73 (98) 94 Nasal Cannula 2.0 Lab Results: Results Past 24 Hours Test 11/14/17 11:54 11/14/17 16:36 11/14/17 19:48 11/15/17 05:36 Range/Units Bedside Glucose 193 203 222 70-90 mg/dl White Blood Count 11.52 4.8-10.8 K/uL Red Blood Count 4.42 4.2-5.4 M/uL Hemoglobin 11.8 12.0-16.0 g/dL Hematocrit 37.8 37-47 % Mean Corpuscular Volume 85.5 80-100 fL Mean Corpuscular Hemoglobin 26.7 25-34 pg Mean Corpuscular Hemoglobin Concent 31.2 32-36 g/dl Platelet Count 296 130-400 K/uL Mean Platelet Volume 10.9 7.4-10.4 fL Neutrophils (%) (Auto) 66.9 % Lymphocytes (%) (Auto) 24.3 % Monocytes (%) (Auto) 7.1 % Eosinophils (%) (Auto) 1.3 % Basophils (%) (Auto) 0.1 % Neutrophils # (Auto) 7.70 1.4-6.5 K/uL Lymphocytes # (Auto) 2.80 1.2-3.4 K/uL Monocytes # (Auto) 0.82 0.11-0.59 K/uL Eosinophils # (Auto) 0.15 0-0.5 K/uL Basophils # (Auto) 0.01 0-0.2 K/uL RDW Standard Deviation 49.1 36.4-46.3 fL RDW Coefficient of Variation 15.9 11.5-14.5 % Immature Granulocyte % (Auto) 0.3 % Immature Granulocyte # (Auto) 0.04 0.00-0.02 K/uL Prothrombin Time 20.5 9.0-12.0 SECONDS Prothromb Time International Ratio 2.0 0.9-1.1 Sodium Level 138 136-145 mmol/L Potassium Level 3.9 3.5-5.1 mmol/L Chloride Level 101 98-107 mmol/L Carbon Dioxide Level 32 21-32 mmol/L Anion Gap 5.0 3-11 mmol/L Blood Urea Nitrogen 20 7-18 mg/dl Creatinine 0.46 0.60-1.20 mg/dl Est Creatinine Clear Calc Drug Dose 79.7 ml/min Estimated GFR () 110.4 Estimated GFR (Non- 95.3 BUN/Creatinine Ratio 42.6 10-20 Random Glucose 102 70-99 mg/dl Calcium Level 7.8 8.5-10.1 mg/dl Total Bilirubin 0.6 0.2-1 mg/dl Aspartate Amino Transf (AST/SGOT) 20 15-37 U/L Alanine Aminotransferase (ALT/SGPT) 63 12-78 U/L Test 11/15/17 07:46 Range/Units Bedside Glucose 101 70-90 mg/dl
--- NOTE | 2017-11-15 14:44 | Pharmacy Progress Note ---
Glycemic Control Progress Note Date of Service Nov 15, 2017. Scope Glycemic Pharmacist consulted for glycemic control to write orders per [facility] inpatient glycemic control protocol. Objective Accuchecks BSG (last 24hrs): Test 11/14/17 16:36 11/14/17 19:48 11/15/17 05:36 11/15/17 07:46 Bedside Glucose 203 mg/dl (70-90) 222 mg/dl (70-90) 101 mg/dl (70-90) Random Glucose 102 mg/dl (70-99) Test 11/15/17 12:02 Bedside Glucose 71 mg/dl (70-90) HbA1c: Test 11/01/17 05:21 Hemoglobin A1c 7.0 % (4.5-5.6) H Recent Pertinent Medications The patient is currently receiving: * Basal insulin: NPH QDB based on BSG, 8 units adminitered on 11/15 AM * Correctional Insulin: Novolog Correction per scale ACHS Goal Range: Low 120 mg/dL - High 150 mg/dL Correction Factor: 20 mg/dL/unit * Prandial insulin: Per carb ratio of 1 unit per 7 grams CHO consumed Assessment & Plan ASSESSMENT: 11/14/17 * 77 yo F admitted on 10/31/17 for acute on chronic respiratory failure 2nd COPD exacerbation * Has been on higher than physiologic doses of steroids since admission 2 weeks ago, currently on prednisone 40 mg po daily. Anticipate need for prolonged steroid taper * AM fasting BSG again with hypoglycemia less than 70 mg/dL - likely 2nd steroid effects of prednisone wearing off overnight and Lantus lasting 24 hours. * Will not provide additional Lantus today to prevent repeat AM hypoglycemia * Will initiate NPH tomorrow AM to better mimic pharmacokinetics of prednisone , as anticipate prolonged tx with prednisone * Post-prandial BSG's elevated, likely steroid-induced. OK to tighten carb ratio * Will tighten correction factor today as well as no additional basal insulin ordered and lunch BSG elevated to 193 mg/dL, but will increase goal range to help prevent hypoglycemia 11/15/17 * AM fasting BSG at 101 mg/dL despite no basal insulin administered yesterday - appropriate to continue to hold Lantus * NPH selected as basal insulin to better mimic PK of prednisone. 8 units admin this AM may have contributed to lower BSG of 71 mg/dL at lunch today * Will change parameters so patient only receives 8 units at higher BSG * Loosen carb ratio 2nd lower BSG at lunch and with NPH possibly helping with post-prandial hyperglycemia PLAN FOR INPATIENT GLYCEMIC CONTROL: * Oral Agents * Continue to hold outpatient oral diabetes medications * Basal insulin. NPH QDB as follows: * 5 units for BSG less than 120 mg/dL * 8 units for BSG 120 mg/dL or greater * Bolus insulin * NovoLog per scale ACHS or Q6hrs while NPO * Goal Range: Low 120 mg/dL - High 150 mg/dL * Loosen Correction Factor: 20 mg/dL/unit * Loosen Nutritional / Prandial insulin per carb ratio of 1 unit per 8 grams CHO consumed Discharge recommendations * Depending on plan for steroids, patient may benefit from short-term switch to NPH qAM as outpatient (as compared to Lantus qHS) to better manage post- prandial hyperglycemia and prevent AM hypoglycemia * Please note that the plan above was derived based on current level of insulin resistance and hospital stress. These recommendations are appropriate for inpatient admission only. Plan of care upon discharge will need to be reassessed to avoid potential outpatient hypo/hyperglycemia. Thank you.
[2017-11-15] MEDS: WARFARIN SOD 2.5 MG TAB PO SCH (15:52)
[2017-11-16] VITALS (9 sets, daily range): BP systolic 101–144; BP diastolic 53–69; PULSE 67–81; TEMP 36.3–36.8; O2SAT 93–96
[2017-11-16] MEDS: CEFEPIME IV 1,000 MG in SYRINGE 0 ML IV SCH ×2 (03:51→15:47)
[2017-11-16 06:43] LABS: INR 1.5 (0.9-1.1)
[2017-11-16] MEDS: LEVALBUTEROL 1.25MG/0.5ML NEB INH SCH ×3 (07:17→19:17)
[2017-11-16] MEDS: IPRATROPIUM BROMIDE NEB SOLN 0.02% 2.5 ML VIAL INH SCH ×3 (07:17→19:17)
[2017-11-16] MEDS: FLUTICASONE/SALMETEROL (ADVAIR) 500/50 INH 14 PUFF INH SCH ×2 (08:09→20:28)
[2017-11-16] MEDS: LISINOPRIL 20 MG TAB PO SCH (08:09)
[2017-11-16] MEDS: BENZONATATE 100MG CAP PO SCH ×2 (08:10→20:31)
[2017-11-16] MEDS: ASPIRIN 81 MG ECTAB PO SCH (08:10)
[2017-11-16] MEDS: MULTIVITAMIN TAB PO SCH (08:10)
[2017-11-16] MEDS: AMLODIPINE BESYLATE 5 MG TAB PO SCH (08:10)
[2017-11-16] MEDS: SOTALOL HCL 80 MG TAB PO SCH ×2 (08:10→20:31)
[2017-11-16] MEDS: INSULIN HUMAN NPH SC SCH (08:12)
[2017-11-16] MEDS: INSULIN ASPART 100 UNITS/ML 3 ML PEN SC SCH ×4 (08:12→20:27)
--- NOTE | 2017-11-16 12:05 | Pharmacy Progress Note ---
Glycemic Control Progress Note Date of Service Nov 16, 2017. Scope Glycemic Pharmacist consulted for glycemic control to write orders per [facility] inpatient glycemic control protocol. Objective Accuchecks BSG (last 24hrs): Test 11/15/17 12:02 11/15/17 16:06 11/15/17 19:31 11/16/17 07:34 Bedside Glucose 71 mg/dl (70-90) 213 mg/dl (70-90) 218 mg/dl (70-90) 99 mg/dl (70-90) HbA1c: Test 11/01/17 05:21 Hemoglobin A1c 7.0 % (4.5-5.6) H Recent Pertinent Medications The patient is currently receiving: * Basal insulin: NPH QDB based on BSG * Correctional Insulin: Novolog Correction per scale ACHS Goal Range: Low 120 mg/dL - High 150 mg/dL Correction Factor: 20 mg/dL/unit * Prandial insulin: Per carb ratio of 1 unit per 8 grams CHO consumed Outpatient Anti-Diabetic Meds Oral medication Basal Insulin Assessment & Plan ASSESSMENT: 11/15/17 * AM fasting BSG at 101 mg/dL despite no basal insulin administered yesterday - appropriate to continue to hold Lantus * NPH selected as basal insulin to better mimic PK of prednisone. 8 units admin this AM may have contributed to lower BSG of 71 mg/dL at lunch today * Will change parameters so patient only receives 8 units at higher BSG * Loosen carb ratio 2nd lower BSG at lunch and with NPH possibly helping with post-prandial hyperglycemia 11/16/17 * Patient continues to have adequate control in AM but with hyperglycemia at dinner and HS, likely 2nd steroid effects being most prominent at lunch and dinner causing elevations after (at dinner and bedtime) * Will keep CHO ratio at breakfast and HS loose, but will tighten at lunch and dinner in an attempt to better manage dinner and HS BSG's * Continue NPH - dose may need to be increased tomorrow PLAN FOR INPATIENT GLYCEMIC CONTROL: Oral Agents * Continue to hold outpatient oral diabetes medications Basal insulin. NPH QDB as follows: * 5 units for BSG less than 120 mg/dL * 8 units for BSG 120 mg/dL or greater Bolus insulin * NovoLog per scale ACHS or Q6hrs while NPO * Goal Range: Low 120 mg/dL - High 150 mg/dL * Tighten Correction Factor * 20 mg/dL/unit at breakfast, HS * 15 mg/dL/unit at lunch, dinner * Nutritional / Prandial insulin per carb ratio * Loosen 1 unit per 9 g CHO consumed at breakfast, HS * Tighten 1 unit per 6 g CHO consumed at lunch, dinner Discharge recommendations * Patient would likely benefit from short-term switch to NPH qAM as outpatient ( as compared to Lantus qHS) to better manage post-prandial hyperglycemia and prevent AM hypoglycemia * Please note that the plan above was derived based on current level of insulin resistance and hospital stress. These recommendations are appropriate for inpatient admission only. Plan of care upon discharge will need to be reassessed to avoid potential outpatient hypo/hyperglycemia. Thank you.
[2017-11-16] MEDS: WARFARIN SOD 5 MG TAB PO SCH (15:47)
--- NOTE | 2017-11-16 18:09 | Progress Note ---
Internal Med Progress Note Date of Service: Nov 16, 2017. Provider Documentation: SUBJECTIVE: Seen and examined at bedside No significant change from yesterday No new complaints Has intermittent cough with brownish expectoration Denies chest pain, SOB, dizziness OBJECTIVE: Vital Signs-as noted below Physical Exam: General Appearance:Moderately built and nourished, no apparent distress Head: normocephalic, Atraumatic Eyes: normal inspection, EOMI, PERRL Neck: supple, Trachea midline Respiratory/Chest: Decreased breath sounds, CTA Cardiovascular: S1, S2, No murmur Abdomen/GI:Soft, Non tender, Bowel sounds present Extremities/Musculoskelatal:normal inspection, 1+ B/L edema R > L Neurologic/Psych:AAOX3, grossly no focal neurological deficits Skin: normal color, warm Lab data as noted below. ASSESSMENT & PLAN: Patient is a 77 yr female with a PMH of severe COPD and chronic respiratory failure on 4L of O2 continuously, DM II, HTN, and paroxysmal atrial fibrillation on long-term anticoagulation presents with worsening shortness of breath Acute on Chronic Hypoxic Respiratory Failure Secondary to Acute COPD Exacerbation likely from Acute Bronchitis On Chronic Oxygen S/P Bronchoscopy: (+) mucus plug removed CXR: no acute findings Flu PCR: negative Continue PO prednisone Day # 5/5 Continue inhalers, Nebs PRN Sputum culture: (+) Aspergillus; Bronch Wash culture: Pseudomonas, mdr Continue cefepime Day # 5/10 Appreciate Pulm and ID help Wean off oxygen as able to maintain sats 88-92% needs 2 step prior to discharge Continue Pulmonary toilet Right Lower Leg Edema Likely secondary to IVF, meds no signs of cellulitis Venous Doppler: No DVT elevate legs Improving P. Atrial Fibrillation on Long-term anticoagulation currently NSR continue Sotalol Monitor INR:1.5 today continue Coumadin Hypokalemia: resolved monitor HTN continue Amlodipine, Lisinopril monitor DM II Ha1c: 7.0 ISS, Lantus per glycemic control pharmacist Hold PO meds DVT Px on coumadin Code Status: Full Code Disposition anticipate d/c home when stable will need repeat 2 step prior to discharge PCP ff up with Dr. Leone Also needs Pulmonary and ID follow up Vital Signs: Date Time Temp Pulse Resp B/P (MAP) Pulse Ox O2 Delivery O2 Flow Rate FiO2 11/16/17 16:45 Nasal Cannula 2.0 11/16/17 14:46 36.3 72 22 112/61 (78) 96 Nasal Cannula 2.0 11/16/17 14:35 72 16 96 Nasal Cannula 2.0 11/16/17 12:45 Nasal Cannula 2.0 11/16/17 11:31 36.4 74 20 126/53 (77) 95 Nasal Cannula 2.0 11/16/17 08:45 Nasal Cannula 2.0 11/16/17 07:20 36.4 67 20 144/69 (94) 95 Nasal Cannula 2.0 11/16/17 07:17 68 16 95 Nasal Cannula 2.0 11/16/17 04:24 36.8 72 20 122/62 (82) 93 Nasal Cannula 2.0 11/16/17 00:00 Nasal Cannula 2.0 11/15/17 23:44 36.6 62 20 107/59 (75) 94 Nasal Cannula 2.0 11/15/17 20:00 Nasal Cannula 2.0 11/15/17 19:35 68 16 93 Nasal Cannula 2.0 11/15/17 19:00 36.4 93 20 111/57 (75) 93 Nasal Cannula 2.0 Lab Results: Results Past 24 Hours Test 11/15/17 19:31 11/16/17 06:11 11/16/17 07:34 11/16/17 11:43 Range/Units Bedside Glucose 218 99 92 70-90 mg/dl Prothrombin Time 15.3 9.0-12.0 SECONDS Prothromb Time International Ratio 1.5 0.9-1.1 Test 11/16/17 16:34 Range/Units Bedside Glucose 262 70-90 mg/dl
[2017-11-17] VITALS (10 sets, daily range): BP systolic 106–147; BP diastolic 54–78; PULSE 61–83; TEMP 36.4–36.9; O2SAT 93–98
[2017-11-17] MEDS: CEFEPIME IV 1,000 MG in SYRINGE 0 ML IV SCH ×2 (04:27→15:53)
[2017-11-17 07:00] LABS: EOS % 1.3 %; EOS ABS # 0.15 K/uL (0-0.5); HEMATOCRIT 36.3 % (37-47); HEMOGLOBIN 11.5 g/dL (12.0-16.0); IG# 0.04 K/uL (0.00-0.02); LYMPH % 20.5 %; LYMPH ABS # 2.45 K/uL (1.2-3.4); MEAN CELL VOLUME 86.6 fL (80-100); MEAN CORPUSCULAR HEMOGLOBIN 27.4 pg (25-34); MEAN CORPUSCULAR HGB CONC 31.7 g/dl (32-36); MEAN PLATELET VOLUME 10.7 fL (7.4-10.4); MONO % 6.8 %; MONO ABS # 0.81 K/uL (0.11-0.59); NEUT % 71.1 %; NEUT ABS # 8.51 K/uL (1.4-6.5); PLATELET COUNT 284 K/uL (130-400); RED CELL DISTRIBUTION WIDTH CV 16.2 % (11.5-14.5); RED CELL DISTRIBUTION WIDTH SD 50.3 fL (36.4-46.3); WHITE BLOOD COUNT 11.96 K/uL (4.8-10.8)
[2017-11-17] MEDS: IPRATROPIUM BROMIDE NEB SOLN 0.02% 2.5 ML VIAL INH SCH ×3 (07:07→20:40)
[2017-11-17] MEDS: LEVALBUTEROL 1.25MG/0.5ML NEB INH SCH ×3 (07:07→20:40)
[2017-11-17 07:10] LABS: INR 1.5 (0.9-1.1)
[2017-11-17 07:18] LABS: CALCIUM 8.3 mg/dl (8.5-10.1); CREATININE 0.47 mg/dl (0.60-1.20)
[2017-11-17] MEDS: INSULIN ASPART 100 UNITS/ML 3 ML PEN SC SCH ×5 (08:58→20:57)
[2017-11-17] MEDS: AMLODIPINE BESYLATE 5 MG TAB PO SCH (08:59)
[2017-11-17] MEDS: MULTIVITAMIN TAB PO SCH (08:59)
[2017-11-17] MEDS: LISINOPRIL 20 MG TAB PO SCH (08:59)
[2017-11-17] MEDS: ASPIRIN 81 MG ECTAB PO SCH (09:00)
[2017-11-17] MEDS: SOTALOL HCL 80 MG TAB PO SCH ×2 (09:00→20:58)
[2017-11-17] MEDS: BENZONATATE 100MG CAP PO SCH ×2 (09:01→20:59)
[2017-11-17] MEDS: FLUTICASONE/SALMETEROL (ADVAIR) 500/50 INH 14 PUFF INH SCH ×2 (09:01→20:57)
--- NOTE | 2017-11-17 09:22 | Pharmacy Progress Note ---
Pharmacy Glycemic Short Note 2 Date of Service Nov 17, 2017. OUTPATIENT ANTIDIABETIC REGIMEN: * Lantus 12 units SQ HS * Metformin 1,000mg PO BIDM * A1c = 7% on 11/01/17 ASSESSMENT: 11/17/17 * Patient received 29 units of insulin yesterday * Using NPH + Novolog for baseline diabetes in addition to once daily prednisone * Steroids have been d/c'd so insulin needs will change starting today * Will plan to work back towards outpatient regimen, in preparation for discharge * Est TDD off steroids ~20 units/day * Will change NPH back to Lantus - give reduced dose compared to outpatient regimen since I expect insulin requirements to be reduced * Loosen CF/CR starting w/ lunch today (AM dose has already been given) * Resume metformin PLAN FOR INPATIENT GLYCEMIC CONTROL: * Resume metformin 1 gm BID starting with dinner tonight * Basal insulin * Change back to outpatient Lantus * 8 units with lunch today, then qHS starting tomorrow * Bolus insulin: loosen * NovoLog per scale ACHS or Q6hrs while NPO * Goal Range: Low 120 mg/dL - High 150 mg/dL * Correction Factor: 25 mg/dL/unit * Nutritional / Prandial insulin per carb ratio of 1 unit per 15 grams CHO consumed OUTPATIENT RECOMMENDATIONS * Continue outpatient regimen, with recommendation to SMBG at home. Patient apparently does not do this but does not report feeling low and A1c is acceptable.
[2017-11-17] MEDS ORDERED: INSULIN GLARGINE SOLOSTAR 100 UNITS/ML 3 ML PEN SC SCH (12:00)
[2017-11-17] MEDS: WARFARIN SOD 2.5 MG TAB PO SCH (15:54)
[2017-11-17] MEDS: METFORMIN HCL 500 MG TAB PO SCH (17:07)
--- NOTE | 2017-11-17 17:26 | Progress Note ---
Internal Med Progress Note Date of Service: Nov 17, 2017. Provider Documentation: SUBJECTIVE: Seen and examined at bedside doing well today less cough No new complaints Denies chest pain, SOB, dizziness OBJECTIVE: Vital Signs-as noted below Physical Exam: General Appearance:Moderately built and nourished, no apparent distress Head: normocephalic, Atraumatic Eyes: normal inspection, EOMI, PERRL Neck: supple, Trachea midline Respiratory/Chest: Normal breath sounds, CTA Cardiovascular: S1, S2, No murmur Abdomen/GI:Soft, Non tender, Bowel sounds present Extremities/Musculoskelatal:normal inspection, 1+ B/L edema R > L Neurologic/Psych:AAOX3, grossly no focal neurological deficits Skin: normal color, warm Lab data as noted below. ASSESSMENT & PLAN: Patient is a 77 yr female with a PMH of severe COPD and chronic respiratory failure on 4L of O2 continuously, DM II, HTN, and paroxysmal atrial fibrillation on long-term anticoagulation presents with worsening shortness of breath Acute on Chronic Hypoxic Respiratory Failure Secondary to Acute COPD Exacerbation likely from Acute Bronchitis On Chronic Oxygen S/P Bronchoscopy: (+) mucus plug removed CXR: no acute findings Flu PCR: negative Continue PO prednisone Day # 5/5 Continue inhalers, Nebs PRN Sputum culture: (+) Aspergillus; Bronch Wash culture: Pseudomonas, mdr Continue cefepime Day # 6/ Appreciate Pulm and ID help Wean off oxygen as able to maintain sats 88-92% needs 2 step prior to discharge Continue Pulmonary toilet patient to complete IV antibiotic therapy prior to discharge Right Lower Leg Edema Likely secondary to IVF, meds no signs of cellulitis Venous Doppler: No DVT elevate legs Improving P. Atrial Fibrillation on Long-term anticoagulation currently NSR continue Sotalol Monitor INR:1.5 today continue Coumadin, will give 5 mg Coumadin today Hypokalemia: resolved monitor HTN continue Amlodipine, Lisinopril monitor DM II Ha1c: 7.0 ISS, Lantus per glycemic control pharmacist Hold PO meds DVT Px on coumadin Code Status: Full Code Disposition Plan to discharge home after completion of IV antibiotic therapy will need repeat 2 step prior to discharge PCP ff up with Dr. Leone Also needs Pulmonary and ID follow up Vital Signs: Date Time Temp Pulse Resp B/P (MAP) Pulse Ox O2 Delivery O2 Flow Rate FiO2 11/17/17 16:00 Nasal Cannula 2.0 11/17/17 15:09 36.4 81 20 108/54 (72) 95 Nasal Cannula 2.0 11/17/17 14:13 83 18 96 Nasal Cannula 2.0 11/17/17 12:45 Nasal Cannula 2.0 11/17/17 11:09 36.5 68 18 108/61 (77) 98 Nasal Cannula 2.0 11/17/17 08:50 Nasal Cannula 2.0 11/17/17 07:13 67 18 137/70 (92) 11/17/17 07:09 73 18 94 Nasal Cannula 2.0 11/17/17 04:00 Nasal Cannula 2.0 11/17/17 04:00 36.4 65 18 142/73 (96) 93 2.0 11/17/17 00:00 36.4 61 18 142/67 (92) 94 2.0 11/17/17 00:00 Nasal Cannula 2.0 11/16/17 20:30 81 108/60 (76) 11/16/17 20:00 Nasal Cannula 2.0 11/16/17 19:17 72 18 96 Nasal Cannula 2.0 11/16/17 19:04 36.4 73 22 101/61 (74) 93 Nasal Cannula 2.0 Lab Results: Results Past 24 Hours Test 11/16/17 19:59 11/17/17 06:23 11/17/17 07:34 11/17/17 11:28 Range/Units Bedside Glucose 169 112 118 70-90 mg/dl White Blood Count 11.96 4.8-10.8 K/uL Red Blood Count 4.19 4.2-5.4 M/uL Hemoglobin 11.5 12.0-16.0 g/dL Hematocrit 36.3 37-47 % Mean Corpuscular Volume 86.6 80-100 fL Mean Corpuscular Hemoglobin 27.4 25-34 pg Mean Corpuscular Hemoglobin Concent 31.7 32-36 g/dl Platelet Count 284 130-400 K/uL Mean Platelet Volume 10.7 7.4-10.4 fL Neutrophils (%) (Auto) 71.1 % Lymphocytes (%) (Auto) 20.5 % Monocytes (%) (Auto) 6.8 % Eosinophils (%) (Auto) 1.3 % Basophils (%) (Auto) 0.0 % Neutrophils # (Auto) 8.51 1.4-6.5 K/uL Lymphocytes # (Auto) 2.45 1.2-3.4 K/uL Monocytes # (Auto) 0.81 0.11-0.59 K/uL Eosinophils # (Auto) 0.15 0-0.5 K/uL Basophils # (Auto) 0.00 0-0.2 K/uL RDW Standard Deviation 50.3 36.4-46.3 fL RDW Coefficient of Variation 16.2 11.5-14.5 % Immature Granulocyte % (Auto) 0.3 % Immature Granulocyte # (Auto) 0.04 0.00-0.02 K/uL Prothrombin Time 16.0 9.0-12.0 SECONDS Prothromb Time International Ratio 1.5 0.9-1.1 Sodium Level 138 136-145 mmol/L Potassium Level 4.0 3.5-5.1 mmol/L Chloride Level 101 98-107 mmol/L Carbon Dioxide Level 33 21-32 mmol/L Anion Gap 4.0 3-11 mmol/L Blood Urea Nitrogen 20 7-18 mg/dl Creatinine 0.47 0.60-1.20 mg/dl Est Creatinine Clear Calc Drug Dose 78.0 ml/min Estimated GFR () 109.7 Estimated GFR (Non- 94.6 BUN/Creatinine Ratio 42.8 10-20 Random Glucose 115 70-99 mg/dl Calcium Level 8.3 8.5-10.1 mg/dl Test 11/17/17 16:13 Range/Units Bedside Glucose 133 70-90 mg/dl
[2017-11-17] MEDS ORDERED: WARFARIN SOD 2.5 MG TAB PO ONE (17:30)
[2017-11-18] VITALS (10 sets, daily range): BP systolic 97–144; BP diastolic 52–74; PULSE 64–83; TEMP 36.4–36.6; O2SAT 94–98
[2017-11-18] MEDS: CEFEPIME IV 1,000 MG in SYRINGE 0 ML IV SCH ×2 (03:42→16:48)
[2017-11-18] MEDS: IPRATROPIUM BROMIDE NEB SOLN 0.02% 2.5 ML VIAL INH SCH ×3 (07:03→19:23)
[2017-11-18] MEDS: LEVALBUTEROL 1.25MG/0.5ML NEB INH SCH ×3 (07:03→19:23)
[2017-11-18 07:11] LABS: HEMOGLOBIN 11.8 g/dL (12.0-16.0); MEAN CELL VOLUME 86.7 fL (80-100); MEAN CORPUSCULAR HEMOGLOBIN 28.4 pg (25-34); MEAN CORPUSCULAR HGB CONC 32.8 g/dl (32-36); PLATELET COUNT 265 K/uL (130-400); RED CELL DISTRIBUTION WIDTH CV 16.3 % (11.5-14.5); RED CELL DISTRIBUTION WIDTH SD 51.2 fL (36.4-46.3); WHITE BLOOD COUNT 10.26 K/uL (4.8-10.8)
[2017-11-18 07:21] LABS: INR 1.9 (0.9-1.1)
[2017-11-18 07:39] LABS: CALCIUM 8.2 mg/dl (8.5-10.1); CREATININE 0.48 mg/dl (0.60-1.20); POTASSIUM 4.5 mmol/L (3.5-5.1)
[2017-11-18] MEDS: INSULIN ASPART 100 UNITS/ML 3 ML PEN SC SCH ×4 (07:52→21:47)
[2017-11-18] MEDS: ASPIRIN 81 MG ECTAB PO SCH (09:25)
[2017-11-18] MEDS: AMLODIPINE BESYLATE 5 MG TAB PO SCH (09:25)
[2017-11-18] MEDS: BENZONATATE 100MG CAP PO SCH ×2 (09:25→21:45)
[2017-11-18] MEDS: FLUTICASONE/SALMETEROL (ADVAIR) 500/50 INH 14 PUFF INH SCH ×2 (09:25→21:40)
[2017-11-18] MEDS: MULTIVITAMIN TAB PO SCH (09:25)
[2017-11-18] MEDS: SOTALOL HCL 80 MG TAB PO SCH ×2 (09:25→21:45)
[2017-11-18] MEDS: LISINOPRIL 20 MG TAB PO SCH (09:25)
[2017-11-18] MEDS ORDERED: SODIUM CHLORIDE 0.65% NA SOLN 45 ML (OCEAN) ONE (09:30)
[2017-11-18] MEDS ORDERED: NURSING DECISION MEDICATION ORDER SCH (09:45)
--- NOTE | 2017-11-18 10:08 | Pharmacy Progress Note ---
Pharmacy Glycemic Short Note 2 Date of Service Nov 18, 2017. OUTPATIENT ANTIDIABETIC REGIMEN: * Lantus 12 units SQ HS * Metformin 1,000mg PO BIDM * A1c = 7% on 11/01/17 ASSESSMENT: 11/18/17 * Patient received 19 units of insulin yesterday, in addition to metformin that was restarted last evening * Her fasting is a little low this AM (80 mg/dL) so will remove CR altogether to provide less overall insulin today * Working back to outpatient regimen * Continue 8 units of Lantus (reduced dose compared to outpatient regimen) 11/17/17 * Patient received 29 units of insulin yesterday * Using NPH + Novolog for baseline diabetes in addition to once daily prednisone * Steroids have been d/c'd so insulin needs will change starting today * Will plan to work back towards outpatient regimen, in preparation for discharge * Est TDD off steroids ~20 units/day * Will change NPH back to Lantus - give reduced dose compared to outpatient regimen since I expect insulin requirements to be reduced * Loosen CF/CR starting w/ lunch today (AM dose has already been given) * Resume metformin PLAN FOR INPATIENT GLYCEMIC CONTROL: * Continue metformin 1 gm BID * Basal insulin * Continue Lantus 8 units qHS * Bolus insulin: loosen * NovoLog per scale ACHS or Q6hrs while NPO * Goal Range: Low 120 mg/dL - High 150 mg/dL * Correction Factor: 25 mg/dL/unit * REMOVE Nutritional / Prandial insulin OUTPATIENT RECOMMENDATIONS * Continue outpatient regimen, with recommendation to SMBG at home. Patient apparently does not do this but does not report feeling low and A1c is acceptable.
[2017-11-18] MEDS ORDERED: SODIUM CHLORIDE 0.65% NA SOLN 45 ML (OCEAN) PRN (10:45)
[2017-11-18] MEDS: METFORMIN HCL 500 MG TAB PO SCH ×2 (13:03→17:27)
[2017-11-18] MEDS: WARFARIN SOD 2.5 MG TAB PO SCH (16:00)
--- NOTE | 2017-11-18 18:36 | Progress Note ---
Medicine Progress Note Date & Time of Visit: Nov 18, 2017 at 18:33. Subjective seen resting in bed, comfortable having dinner states she feels fine overall no dyspnea, cough ambulates in the hallways with no problems no other symptoms Objective Last 8 Hrs Date Time Temp Pulse Resp B/P (MAP) Pulse Ox O2 Delivery O2 Flow Rate FiO2 11/18/17 15:01 36.5 81 16 126/73 (90) 98 Nasal Cannula 2.0 11/18/17 14:00 79 16 95 Nasal Cannula 2.0 11/18/17 11:51 Nasal Cannula 2.0 11/18/17 11:07 36.5 83 16 119/59 (79) 96 Nasal Cannula 2.0 Physical Exam: General- oriented x 3, not in distress, speaks in sentences with some effort, no accessory muscle use Eyes- anicteric Lungs- clear BS bilaterally, no rales/wheezes Heart- regular rhythm; no murmur, normal rate Abdomen- normal bowel sounds, soft, nontender Extremities- trace right lower leg edema, no tenderness/warmth/erythema left lower leg normal Neuro- alert, oriented x 3; no gross focal neurologic deficits Skin- warm & dry Laboratory Results: Last 24 Hours Test 11/17/17 20:17 11/18/17 06:53 11/18/17 07:21 11/18/17 11:09 Bedside Glucose 103 mg/dl 80 mg/dl 148 mg/dl White Blood Count 10.26 K/uL Red Blood Count 4.15 M/uL Hemoglobin 11.8 g/dL Hematocrit 36.0 % Mean Corpuscular Volume 86.7 fL Mean Corpuscular Hemoglobin 28.4 pg Mean Corpuscular Hemoglobin Concent 32.8 g/dl RDW Standard Deviation 51.2 fL RDW Coefficient of Variation 16.3 % Platelet Count 265 K/uL Mean Platelet Volume 10.0 fL Prothrombin Time 19.6 SECONDS Prothromb Time International Ratio 1.9 Sodium Level 137 mmol/L Potassium Level 4.5 mmol/L Chloride Level 100 mmol/L Carbon Dioxide Level 33 mmol/L Anion Gap 4.0 mmol/L Blood Urea Nitrogen 20 mg/dl Creatinine 0.48 mg/dl Est Creatinine Clear Calc Drug Dose 76.4 ml/min Estimated GFR () 108.9 Estimated GFR (Non- 94.0 BUN/Creatinine Ratio 42.2 Random Glucose 84 mg/dl Calcium Level 8.2 mg/dl Test 11/18/17 16:17 Bedside Glucose 210 mg/dl Assessment & Plan Patient is a 77 yr female with a PMH of severe COPD and chronic respiratory failure on 4L of O2 continuously, DM II, HTN, and paroxysmal atrial fibrillation on long-term anticoagulation presents with worsening shortness of breath Acute on Chronic Hypoxic Respiratory Failure Secondary to Acute COPD Exacerbation likely from Acute Bronchitis On Chronic Oxygen S/P Bronchoscopy: (+) mucus plug removed CXR: no acute findings Flu PCR: negative Continue PO prednisone Day # 5/5 Continue inhalers, Nebs PRN Sputum culture: (+) Aspergillus; Bronch Wash culture: Pseudomonas, mdr Continue cefepime Day # 03/10 Appreciate Pulm and ID help needs 2 step prior to discharge Right Lower Leg Edema Likely secondary to IVF, meds no signs of cellulitis Venous Doppler: No DVT elevate legs Improved after Lasix P. Atrial Fibrillation on Long-term anticoagulation currently NSR continue Sotalol Monitor INR:1.9 today continue Coumadin Hypokalemia resolved monitor HTN continue Amlodipine, Lisinopril monitor DM II Ha1c: 7.0 ISS, Lantus per glycemic control pharmacist DVT Px on coumadin Code Status: Full Code Disposition Plan to discharge home after completion of IV antibiotic therapy will need repeat 2 step prior to discharge PCP ff up with Dr. Leone Also needs Pulmonary and ID follow up This is a 77 year old female with a PMH of severe COPD and chronic respiratory failure on 4L of O2 continuously, DM2, HTN, and paroxysmal atrial fibrillation on long-term anticoagulation presents with worsening shortness of breath Acute on Chronic Hypoxic Respiratory Failure Secondary to Acute COPD Exacerbation likely from Acute Bronchitis - CXR: no acute findings Flu PCR: negative - repeat CXR: unchanged ABG compensated - Mucomyst BID ordered, increased dose given Solumedrol 40mg q12h continued Doxy, Nebs q6h - Sputum culture: (+) Aspergillus Bronch Wash culture: Pseudomonas Voricoanzole added Imipenem added ID consulted - vibrating vest humidified bipap ordered - s/p Bronchoscopy: (+) mucus plug removed Bronchial washing: (+) Pseudomonas, MDR - started on Imipenem day 2 on Voriconazole PO ID on board - improving gradually wean off o2 accordingly appreciate Pulmonary SVC recommendations Right Lower Leg Edema - initial US: no dvt, (+) There is an elliptical hypoechoic collection within the proximal medial calf measuring 30 x 69 x 5 mm. This could represent a small hematoma or localized edema. - repeat US: no DVT - no visible hematoma, no tenderness/warmth no signs of cellulitis, ankle/knee effusion - from IV steroids? fluids? increased amlodipine? however, edema is unilateral Check CT abdomen/pelvis to r/o malignancy--> lymphatic obstruction? - Lasix 20mg po one elevated leg warm compress Paroxysmal Atrial Fibrillation on Long-term anticoagulation currently NSR continue Sotalol coumadin was held for Bronch INR 1.6 to 1.5 increase coumadin to 5mg po daily monitor HTN BP elevated, likely from IV steroids resume Amlodipine 5mg BP improving may increase Lisinopril to 20mg po BID if still uncontrolled DM2 Ha1c = 7.0% insulin sliding scale Lantus dose as per glycemic control pharmacist DVT ppx INR subtherapeutic heparin SC BID until therapeutic continue coumadin FULL CODE Disposition anticipate d/c home when stable, cleared by Pulmonary may need IV vs. PO antibiotics, awaiting ID recommendations will need repeat 2 step on the day of discharge, may need higher o2 supplement requirement while ambulating and a new portable oxygen PCP ff up with Dr. Leone Pulmonary ff up ID ff up case management on board Current Inpatient Medications: Current Inpatient Medications Medications (Trade) Dose Ordered Sig/Liset Route Start Time Stop Time Status Last Admin Dose Admin Acetaminophen (Tylenol Tab) 650 mg Q4H PRN PO 10/31/17 14:15 11/30/17 14:14 11/02/17 08:07 650 MG Al Hydrox/Mg Hydrox/Simethicone (Maalox Max Susp) 15 ml Q4H PRN PO 10/31/17 14:15 11/30/17 14:14 Magnesium Hydroxide (Milk Of Magnesia Susp) 30 ml Q12H PRN PO 10/31/17 14:15 11/30/17 14:14 Ondansetron HCl (Zofran Inj) 4 mg Q6H PRN IV 10/31/17 14:15 11/30/17 14:14 Nitroglycerin (Nitrostat Tab) 0.4 mg UD PRN SL 10/31/17 14:15 11/30/17 14:14 Aspirin (Ecotrin Tab) 81 mg QAM PO 3/3/18 09:00 12/01/17 08:59 11/18/17 09:25 81 MG Polyethylene (Miralax Powder Packet) 17 gm DAILY PRN PO 10/31/17 14:15 11/30/17 14:14 Glucose (Glucose 40% Gel) 15-30 GRAMS 15 GRAMS... UD PRN PO 10/31/17 14:15 11/30/17 14:14 Glucose (Glucose Chew Tab) 4-8 Tablets 4 Tabl... UD PRN PO 10/31/17 14:15 11/30/17 14:14 Dextrose (Dextrose 50% 50ML Syringe) 25-50ML OF 50% DW IV FOR... UD PRN IV 10/31/17 14:15 11/30/17 14:14 Glucagon (Glucagon Inj) 1 mg UD PRN SQ 10/31/17 14:15 11/30/17 14:14 Miscellaneous Information (Consult Glycemic Management Pharmacy) 1 ea UD PRN N/A 10/31/17 15:08 11/30/17 15:07 Ipratropium [place] (Atrovent 0.02% 0.5MG/2.5ML Neb) 0.5 mg Q6RWA INH 10/31/17 15:00 11/30/17 14:59 11/18/17 14:00 0.5 MG Levalbuterol (Xopenex 1.25MG/ 0.5ML Neb) 1.25 mg Q6RWA INH 10/31/17 15:00 11/30/17 14:59 11/18/17 14:00 1.25 MG Benzonatate (Tessalon Perles Cap) 100 mg BID PO 10/31/17 21:00 11/30/17 20:59 11/18/17 09:25 100 MG Multivitamins (Multivitamin Tab) 1 tab DAILY PO 11/01/17 09:00 12/01/17 08:59 11/18/17 09:25 1 TAB Sotalol HCl (Betapace Tab) 80 mg Q12 PO 10/31/17 21:00 11/30/17 20:59 11/18/17 09:25 80 MG Warfarin Sodium (Coumadin Tab) 5 mg SuTh@1600 PO 11/02/17 16:00 12/02/17 15:59 Future hold 11/16/17 15:47 5 MG Warfarin Sodium (Coumadin Tab) 2.5 mg MoTuWeFrSa@1600 PO 10/31/17 16:00 11/30/17 15:59 Future hold 11/18/17 16:00 2.5 MG Guaifenesin/ Dextromethorphan (Robitussin-Dm Syrup) 5 ml Q6H PRN PO 10/31/17 15:45 11/30/17 15:44 11/01/17 12:27 5 ML Salmeterol Xinafoate/ Fluticasone (Advair Diskus 500/50 Inh) 1 puff BID INH 10/31/17 16:15 11/30/17 16:14 11/18/17 09:25 1 PUFF Levalbuterol (Xopenex 0.63 Mg/ 3 Ml Neb) 0.63 mg Q3R PRN INH 10/31/17 17:15 11/30/17 17:14 11/01/17 10:28 0.63 MG Lisinopril (Zestril Tab) 20 mg QAM PO 11/03/17 09:00 12/03/17 08:59 11/18/17 09:25 20 MG Menthol (Nice Aurelia) 1 aurelia PRN PRN AURELIA 11/02/17 10:30 12/02/17 10:29 Acetylcysteine (Mucomyst 20% Inh Soln) 5 ml Q12R INH 11/06/17 20:00 12/05/17 19:59 Future Hold 11/12/17 07:26 5 ML Amlodipine Besylate (Norvasc Tab) 5 mg DAILY PO 11/09/17 09:00 12/01/17 08:59 11/18/17 09:25 5 MG Cefepime HCl 1000 mg/Syringe 11 ml @ 5.5 mls/min Q12H IV 11/12/17 16:00 11/19/17 15:59 11/18/17 16:48 5.5 MLS/MIN Insulin Aspart (novoLOG ASPART) SLIDING SCALE ACHS SC 11/17/17 09:00 12/17/17 08:59 Future hold 11/18/17 16:57 3 UNITS Insulin Glargine (Lantus Solostar Pen) 8 units HS SC 11/18/17 21:00 12/18/17 20:59 Metformin HCl (Glucophage Tab) 1,000 mg BIDM PO 11/17/17 17:00 12/17/17 16:59 11/18/17 17:27 1,000 MG Sodium Chloride ([place] Nasal [place]) 1 sprays PRN PRN NA 11/18/17 10:45 12/18/17 10:44
[2017-11-18] MEDS: INSULIN GLARGINE SOLOSTAR 100 UNITS/ML 3 ML PEN SC SCH (21:48)
[2017-11-19 04:08] VITALS: BP 153/73; PULSE 82; TEMP 36.8; O2SAT 93
[2017-11-19] MEDS: CEFEPIME IV 1,000 MG in SYRINGE 0 ML IV SCH (05:06)
[2017-11-19 06:38] LABS: INR 2.1 (0.9-1.1)
[2017-11-19] MEDS: LEVALBUTEROL 1.25MG/0.5ML NEB INH SCH (06:59)
[2017-11-19] MEDS: IPRATROPIUM BROMIDE NEB SOLN 0.02% 2.5 ML VIAL INH SCH (06:59)
[2017-11-19 07:04] VITALS: BP 149/84; PULSE 78; PULSE 80; TEMP 36.5; O2SAT 93
--- NOTE | 2017-11-19 07:54 | Pharmacy Progress Note ---
Pharmacy Glycemic Short Note 2 Date of Service Nov 19, 2017. OUTPATIENT ANTIDIABETIC REGIMEN: * Lantus 12 units SQ HS * Metformin 1,000mg PO BIDM * A1c = 7% on 11/01/17 ASSESSMENT: 11/19/17 * Patient received 13 units of insulin yesterday, in addition to metformin * Fasting = 90; no change to basal * Postprandials = 148, 210, 186; appears patient needs a little carb coverage throughout the day * Ideally, I would like to put her back on her outpatient dose of Lantus w/o carb coverage but her fastings are a little low to increase basal further 11/18/17 * Patient received 19 units of insulin yesterday, in addition to metformin that was restarted last evening * Her fasting is a little low this AM (80 mg/dL) so will remove CR altogether to provide less overall insulin today * Working back to outpatient regimen * Continue 8 units of Lantus (reduced dose compared to outpatient regimen) 11/17/17 * Patient received 29 units of insulin yesterday * Using NPH + Novolog for baseline diabetes in addition to once daily prednisone * Steroids have been d/c'd so insulin needs will change starting today * Will plan to work back towards outpatient regimen, in preparation for discharge * Est TDD off steroids ~20 units/day * Will change NPH back to Lantus - give reduced dose compared to outpatient regimen since I expect insulin requirements to be reduced * Loosen CF/CR starting w/ lunch today (AM dose has already been given) * Resume metformin PLAN FOR INPATIENT GLYCEMIC CONTROL: * Continue metformin 1 gm BID * Basal insulin * Continue Lantus 8 units qHS * Bolus insulin: loosen * NovoLog per scale ACHS or Q6hrs while NPO * Goal Range: Low 120 mg/dL - High 150 mg/dL * LOOSEN Correction Factor: 30 mg/dL/unit * RESUME Nutritional / Prandial insulin: 1 unit per 15 gm CHO consumed OUTPATIENT RECOMMENDATIONS * Continue outpatient regimen, with recommendation to SMBG at home. Patient apparently does not do this but does not report feeling low and A1c is acceptable.
[2017-11-19] MEDS: FLUTICASONE/SALMETEROL (ADVAIR) 500/50 INH 14 PUFF INH SCH ×2 (08:27→20:16)
[2017-11-19] MEDS: INSULIN ASPART 100 UNITS/ML 3 ML PEN SC SCH ×4 (08:28→20:22)
[2017-11-19] MEDS: AMLODIPINE BESYLATE 5 MG TAB PO SCH (08:30)
[2017-11-19] MEDS: LISINOPRIL 20 MG TAB PO SCH (08:30)
[2017-11-19] MEDS: METFORMIN HCL 500 MG TAB PO SCH ×2 (08:31→17:10)
[2017-11-19] MEDS: SOTALOL HCL 80 MG TAB PO SCH ×2 (08:32→20:16)
[2017-11-19] MEDS: BENZONATATE 100MG CAP PO SCH ×2 (08:32→20:18)
[2017-11-19] MEDS: MULTIVITAMIN TAB PO SCH (08:32)
[2017-11-19] MEDS: ASPIRIN 81 MG ECTAB PO SCH (08:33)
[2017-11-19 11:19] VITALS: BP 93/53; PULSE 82; TEMP 36.5; O2SAT 97
[2017-11-19 15:13] VITALS: BP 134/76; PULSE 86; TEMP 36.8; O2SAT 98
--- NOTE | 2017-11-19 15:48 | Progress Note ---
Medicine Progress Note Date & Time of Visit: Nov 19, 2017 at 15:48. Subjective seen resting in bed, comfortable states she continues to feel well denies dyspnea, ambulates in the halls- no problems no other symptoms Objective Last 8 Hrs Date Time Temp Pulse Resp B/P (MAP) Pulse Ox O2 Delivery O2 Flow Rate FiO2 11/19/17 15:13 36.8 86 18 134/76 (95) 98 2.0 11/19/17 12:15 Nasal Cannula 2.0 11/19/17 11:19 36.5 82 16 93/53 (66) 97 Room Air 11/19/17 08:30 Nasal Cannula 2.0 Physical Exam: General- oriented x 3, not in distress, speaks in sentences with some effort, no accessory muscle use Eyes- anicteric Lungs- clear breath sounds bilaterally, no wheeze, no rales Heart- regular rhythm; no murmur, normal rate Abdomen- normal bowel sounds, soft, nontender Extremities- trace right lower leg edema, no tenderness/warmth/erythema left lower leg normal Neuro- alert, oriented x 3; no gross focal neurologic deficits Skin- warm & dry Laboratory Results: Last 24 Hours Test 11/18/17 16:17 11/18/17 20:53 11/19/17 05:52 11/19/17 07:09 Bedside Glucose 210 mg/dl 186 mg/dl 90 mg/dl Prothrombin Time 21.9 SECONDS Prothromb Time International Ratio 2.1 Test 11/19/17 11:40 Bedside Glucose 94 mg/dl Assessment & Plan Patient is a 77 yr female with a PMH of severe COPD and chronic respiratory failure on 4L of O2 continuously, DM II, HTN, and paroxysmal atrial fibrillation on long-term anticoagulation presents with worsening shortness of breath Acute on Chronic Hypoxic Respiratory Failure Secondary to Acute COPD Exacerbation likely from Acute Bronchitis On Chronic Oxygen S/P Bronchoscopy: (+) mucus plug removed CXR: no acute findings Flu PCR: negative Continue PO prednisone Day # 5/5 Continue inhalers, Nebs PRN Sputum culture: (+) Aspergillus; Bronch Wash culture: Pseudomonas, mdr Continue cefepime Day # 8/10 Appreciate Pulm and ID recommendations needs 2 step prior to discharge Right Lower Leg Edema Likely secondary to IVF, meds no signs of cellulitis Venous Doppler: No DVT elevate legs Improved after Lasix P. Atrial Fibrillation on Long-term anticoagulation currently NSR continue Sotalol Monitor INR:2.1 today continue Coumadin Hypokalemia resolved monitor HTN continue Amlodipine, Lisinopril monitor DM II Ha1c: 7.0 ISS, Lantus per glycemic control pharmacist DVT Px on coumadin Code Status: Full Code Disposition Plan to discharge home after completion of IV antibiotic therapy will need repeat 2 step prior to discharge PCP ff up with Dr. Leone Also needs Pulmonary and ID follow up Current Inpatient Medications: Current Inpatient Medications Medications (Trade) Dose Ordered Sig/Liset Route Start Time Stop Time Status Last Admin Dose Admin Acetaminophen (Tylenol Tab) 650 mg Q4H PRN PO 10/31/17 14:15 11/30/17 14:14 11/02/17 08:07 650 MG Al Hydrox/Mg Hydrox/Simethicone (Maalox Max Susp) 15 ml Q4H PRN PO 10/31/17 14:15 11/30/17 14:14 Magnesium Hydroxide (Milk Of Magnesia Susp) 30 ml Q12H PRN PO 10/31/17 14:15 11/30/17 14:14 Ondansetron HCl (Zofran Inj) 4 mg Q6H PRN IV 10/31/17 14:15 11/30/17 14:14 Nitroglycerin (Nitrostat Tab) 0.4 mg UD PRN SL 10/31/17 14:15 11/30/17 14:14 Aspirin (Ecotrin Tab) 81 mg QAM PO 11/01/17 09:00 12/01/17 08:59 11/19/17 08:33 81 MG Polyethylene (Miralax Powder Packet) 17 gm DAILY PRN PO 10/31/17 14:15 11/30/17 14:14 Glucose (Glucose 40% Gel) 15-30 GRAMS 15 GRAMS... UD PRN PO 10/31/17 14:15 11/30/17 14:14 Glucose (Glucose Chew Tab) 4-8 Tablets 4 Tabl... UD PRN PO 10/31/17 14:15 11/30/17 14:14 Dextrose (Dextrose 50% 50ML Syringe) 25-50ML OF 50% DW IV FOR... UD PRN IV 10/31/17 14:15 11/30/17 14:14 Glucagon (Glucagon Inj) 1 mg UD PRN SQ 10/31/17 14:15 11/30/17 14:14 Miscellaneous Information (Consult Glycemic Management Pharmacy) 1 ea UD PRN N/A 10/31/17 15:08 11/30/17 15:07 Benzonatate (Tessalon Perles Cap) 100 mg BID PO 10/31/17 21:00 11/30/17 20:59 11/19/17 08:32 100 MG Multivitamins (Multivitamin Tab) 1 tab DAILY PO 11/01/17 09:00 12/01/17 08:59 11/19/17 08:32 1 TAB Sotalol HCl (Betapace Tab) 80 mg Q12 PO 10/31/17 21:00 11/30/17 20:59 11/19/17 08:32 80 MG Warfarin Sodium (Coumadin Tab) 5 mg SuTh@1600 PO 11/02/17 16:00 12/02/17 15:59 Future hold 11/16/17 15:47 5 MG Warfarin Sodium (Coumadin Tab) 2.5 mg MoTuWeFrSa@1600 PO 10/31/17 16:00 11/30/17 15:59 Future hold 11/18/17 16:00 2.5 MG Guaifenesin/ Dextromethorphan (Robitussin-Dm Syrup) 5 ml Q6H PRN PO 10/31/17 15:45 11/30/17 15:44 11/01/17 12:27 5 ML Salmeterol Xinafoate/ Fluticasone (Advair Diskus 500/50 Inh) 1 puff BID INH 10/31/17 16:15 11/30/17 16:14 11/19/17 08:27 1 PUFF Levalbuterol (Xopenex 0.63 Mg/ 3 Ml Neb) 0.63 mg Q3R PRN INH 10/31/17 17:15 11/30/17 17:14 11/01/17 10:28 0.63 MG Lisinopril (Zestril Tab) 20 mg QAM PO 11/03/17 09:00 12/03/17 08:59 11/19/17 08:30 20 MG Menthol (Nice Aurelia) 1 aurelia PRN PRN AURELIA 11/02/17 10:30 12/02/17 10:29 Amlodipine Besylate (Norvasc Tab) 5 mg DAILY PO 11/09/17 09:00 12/01/17 08:59 11/19/17 08:30 5 MG Cefepime HCl 1000 mg/Syringe 11 ml @ 5.5 mls/min Q12H IV 11/12/17 16:00 11/19/17 15:59 11/19/17 05:06 5.5 MLS/MIN Insulin Aspart (novoLOG ASPART) SLIDING SCALE ACHS SC 11/17/17 09:00 12/19/17 08:59 Future hold 11/19/17 12:10 1 UNITS Insulin Glargine (Lantus Solostar Pen) 8 units HS SC 11/18/17 21:00 12/18/17 20:59 11/18/17 21:48 8 UNITS Metformin HCl (Glucophage Tab) 1,000 mg BIDM PO 11/17/17 17:00 12/17/17 16:59 11/19/17 08:31 1,000 MG Sodium Chloride ([place] Nasal [place]) 1 sprays PRN PRN NA 11/18/17 10:45 12/18/17 10:44
[2017-11-19] MEDS: WARFARIN SOD 2.5 MG TAB PO SCH (16:31)
[2017-11-19 19:17] VITALS: BP 155/76; PULSE 82; TEMP 36.8; O2SAT 96
[2017-11-19] MEDS: INSULIN GLARGINE SOLOSTAR 100 UNITS/ML 3 ML PEN SC SCH (20:22)
[2017-11-19 23:57] VITALS: BP 135/81; PULSE 80; TEMP 36.3; O2SAT 97
[2017-11-20] VITALS (7 sets, daily range): BP systolic 95–155; BP diastolic 53–80; PULSE 76–89; TEMP 36.2–37.1; O2SAT 95–97
[2017-11-20] MEDS ORDERED: CEFEPIME IV 1,000 MG in DEXTROSE 5% 100ML 100 ML IV SCH (05:30)
[2017-11-20] MEDS: CEFEPIME IV 1,000 MG in SYRINGE 0 ML IV SCH ×2 (06:04→17:39)
[2017-11-20] MEDS ORDERED: INSULIN ASPART 100 UNITS/ML 3 ML PEN SC SCH (06:30)
[2017-11-20 07:06] LABS: INR 1.9 (0.9-1.1)
[2017-11-20] MEDS: INSULIN ASPART 100 UNITS/ML 3 ML PEN SC SCH ×4 (08:06→20:53)
[2017-11-20] MEDS: SOTALOL HCL 80 MG TAB PO SCH ×2 (08:06→20:52)
[2017-11-20] MEDS: MULTIVITAMIN TAB PO SCH (08:06)
[2017-11-20] MEDS: FLUTICASONE/SALMETEROL (ADVAIR) 500/50 INH 14 PUFF INH SCH ×2 (08:06→20:51)
[2017-11-20] MEDS: BENZONATATE 100MG CAP PO SCH ×2 (08:06→20:52)
[2017-11-20] MEDS: AMLODIPINE BESYLATE 5 MG TAB PO SCH (08:07)
[2017-11-20] MEDS: METFORMIN HCL 500 MG TAB PO SCH ×2 (08:07→16:58)
[2017-11-20] MEDS: LISINOPRIL 20 MG TAB PO SCH (08:07)
[2017-11-20] MEDS: ASPIRIN 81 MG ECTAB PO SCH (08:08)
[2017-11-20] MEDS: WARFARIN SOD 5 MG TAB PO SCH (15:43)
--- NOTE | 2017-11-20 17:36 | Progress Note ---
Medicine Progress Note Date & Time of Visit: Nov 20, 2017 at 17:31. Subjective seen resting in bedside chair comfortable, in good spirits states she feels better overall denies dyspnea, cough no leg pain ambulates with no problems denies other symptoms eager to go home Objective Last 8 Hrs Date Time Temp Pulse Resp B/P (MAP) Pulse Ox O2 Delivery O2 Flow Rate FiO2 11/20/17 16:00 Nasal Cannula 2.0 11/20/17 15:28 36.9 85 20 99/56 (70) 95 Nasal Cannula 2.0 11/20/17 12:00 Room Air 2.0 11/20/17 10:58 37.1 89 18 127/80 (96) 96 Physical Exam: General- oriented x 3, not in distress, speaks in sentences with some effort, no accessory muscle use Eyes- anicteric Lungs- clear breath sounds BL, no rales/wheezes Heart- regular rhythm; no murmur, normal rate Abdomen- normal bowel sounds, soft, nontender Extremities- trace right lower leg edema, no tenderness/warmth/erythema left lower leg normal Neuro- alert, oriented x 3; no gross focal neurologic deficits Skin- warm & dry Laboratory Results: Last 24 Hours Test 11/19/17 20:15 11/20/17 06:38 11/20/17 07:06 11/20/17 11:03 Bedside Glucose 197 mg/dl 104 mg/dl 145 mg/dl Prothrombin Time 19.6 SECONDS Prothromb Time International Ratio 1.9 Test 11/20/17 16:39 Bedside Glucose 106 mg/dl Assessment & Plan Patient is a 77 yr female with a PMH of severe COPD and chronic respiratory failure on 4L of O2 continuously, DM II, HTN, and paroxysmal atrial fibrillation on long-term anticoagulation presents with worsening shortness of breath Acute on Chronic Hypoxic Respiratory Failure Secondary to Acute COPD Exacerbation likely from Acute Bronchitis On Chronic Oxygen S/P Bronchoscopy: (+) mucus plug removed CXR: no acute findings Flu PCR: negative Complete Prednisone course Continue inhalers, Nebs PRN Sputum culture: (+) Aspergillus; Bronch Wash culture: Pseudomonas, mdr, Aspergillus Continue cefepime Day # 9/[address] Malone if patient needs Voriconazole for (+) aspergillus in Bronchial Wash Appreciate Pulm and ID recommendations needs 2 step prior to discharge Right Lower Leg Edema Likely secondary to IVF, meds no signs of cellulitis Venous Doppler: No DVT Improved after Lasix P. Atrial Fibrillation on Long-term anticoagulation currently NSR continue Sotalol Monitor INR:1.9 continue Coumadin Hypokalemia resolved monitor HTN continue Amlodipine, Lisinopril monitor DM II Ha1c: 7.0 ISS, Lantus per glycemic control pharmacist DVT Px -- on coumadin Code Status: -- Full Code Disposition -- Plan to discharge home tomorrow after completion of IV antibiotic therapy Will need repeat 2 step prior to discharge PCP ff up with Dr. Loene Also needs Pulmonary and ID follow up Current Inpatient Medications: Current Inpatient Medications Medications (Trade) Dose Ordered Sig/Liset Route Start Time Stop Time Status Last Admin Dose Admin Acetaminophen (Tylenol Tab) 650 mg Q4H PRN PO 10/31/17 14:15 11/30/17 14:14 11/02/17 08:07 650 MG Al Hydrox/Mg Hydrox/Simethicone (Maalox Max Susp) 15 ml Q4H PRN PO 10/31/17 14:15 11/30/17 14:14 Magnesium Hydroxide (Milk Of Magnesia Susp) 30 ml Q12H PRN PO 10/31/17 14:15 11/30/17 14:14 Ondansetron HCl (Zofran Inj) 4 mg Q6H PRN IV 10/31/17 14:15 11/30/17 14:14 Nitroglycerin (Nitrostat Tab) 0.4 mg UD PRN SL 10/31/17 14:15 11/30/17 14:14 Aspirin (Ecotrin Tab) 81 mg QAM PO 11/01/17 09:00 12/01/17 08:59 11/20/17 08:08 81 MG Polyethylene (Miralax Powder Packet) 17 gm DAILY PRN PO 10/31/17 14:15 11/30/17 14:14 Glucose (Glucose 40% Gel) 15-30 GRAMS 15 GRAMS... UD PRN PO 10/31/17 14:15 11/30/17 14:14 Glucose (Glucose Chew Tab) 4-8 Tablets 4 Tabl... UD PRN PO 10/31/17 14:15 11/30/17 14:14 Dextrose (Dextrose 50% 50ML Syringe) 25-50ML OF 50% DW IV FOR... UD PRN IV 10/31/17 14:15 11/30/17 14:14 Glucagon (Glucagon Inj) 1 mg UD PRN SQ 10/31/17 14:15 11/30/17 14:14 Miscellaneous Information (Consult Glycemic Management Pharmacy) 1 ea UD PRN N/A 10/31/17 15:08 11/30/17 15:07 Benzonatate (Tessalon Perles Cap) 100 mg BID PO 10/31/17 21:00 11/30/17 20:59 11/20/17 08:06 100 MG Multivitamins (Multivitamin Tab) 1 tab DAILY PO 11/01/17 09:00 12/01/17 08:59 11/20/17 08:06 1 TAB Sotalol HCl (Betapace Tab) 80 mg Q12 PO 10/31/17 21:00 11/30/17 20:59 11/20/17 08:06 80 MG Warfarin Sodium (Coumadin Tab) 5 mg SuTh@1600 PO 11/02/17 16:00 12/02/17 15:59 Future hold 11/20/17 15:43 5 MG Warfarin Sodium (Coumadin Tab) 2.5 mg MoTuWeFrSa@1600 PO 10/31/17 16:00 11/30/17 15:59 Future hold 11/19/17 16:31 2.5 MG Guaifenesin/ Dextromethorphan (Robitussin-Dm Syrup) 5 ml Q6H PRN PO 10/31/17 15:45 11/30/17 15:44 11/01/17 12:27 5 ML Salmeterol Xinafoate/ Fluticasone (Advair Diskus 500/50 Inh) 1 puff BID INH 10/31/17 16:15 11/30/17 16:14 11/20/17 08:06 1 PUFF Levalbuterol (Xopenex 0.63 Mg/ 3 Ml Neb) 0.63 mg Q3R PRN INH 10/31/17 17:15 11/30/17 17:14 11/01/17 10:28 0.63 MG Lisinopril (Zestril Tab) 20 mg QAM PO 11/03/17 09:00 12/03/17 08:59 11/20/17 08:07 20 MG Menthol (Nice Aurelia) 1 aurelia PRN PRN AURELIA 11/02/17 10:30 12/02/17 10:29 Amlodipine Besylate (Norvasc Tab) 5 mg DAILY PO 11/09/17 09:00 12/01/17 08:59 11/20/17 08:07 5 MG Insulin Aspart (novoLOG ASPART) SLIDING SCALE ACHS SC 11/17/17 09:00 12/19/17 08:59 Future hold 11/20/17 12:30 3 UNITS Insulin Glargine (Lantus Solostar Pen) 8 units HS SC 11/18/17 21:00 12/18/17 20:59 11/19/17 20:22 8 UNITS Metformin HCl (Glucophage Tab) 1,000 mg BIDM PO 11/17/17 17:00 12/17/17 16:59 11/20/17 16:58 1,000 MG Sodium Chloride ([place] Nasal [place]) 1 sprays PRN PRN NA 11/18/17 10:45 12/18/17 10:44 Cefepime HCl 1000 mg/Syringe 11 ml @ 5.5 mls/min Q12H IV 11/20/17 06:00 11/27/17 05:59 11/20/17 06:04 5.5 MLS/MIN
--- NOTE | 2017-11-20 17:41 | Pulmonology Progress Note ---
Pulmonary Progress Note Date of Service Nov 20, 2017. Attending Dr. Martin Whitley There is a 77-year-old female that came in for shortness of breath and pneumonia. She was negative for influenza a and B by PCR. Sputum initially revealed Aspergillus fumigatus. She was started on IV voriconazole. She underwent bronchoscopy with Dr. Gordillo 11/10/2017. Bronchial washings revealed multidrug-resistant Pseudomonas. Patient was placed on cefepime 1 g twice daily for 10 day duration. On 11/17/2017 bronchial washing grew out Aspergillus fumigatus. IgE level was ordered to be drawn 11/21/2017. This is a reference lab and will need follow-up. Patient will follow up with the [facility] pulmonology office in approximately 2 weeks. Patient states that she was feeling well and she is back to baseline as far as her breathing. She still has a little bit of hoarseness. She had no fever or chills. She has been ambulating well in the halls. She is anxious for discharge which is anticipated for 11/21/2017. She has no further questions. Objective GENERAL : No acute distress. Pleasant. No conversational dyspnea EYES: No icterus, gaze conjugate. Peripheral NOSE: No evidence of epistaxis. Nasal cannula in place MOUTH: No lesions or candidiasis NECK: Supple LUNGS: CTA. No bronchospasm or rales or rhonchi. Good aeration in all lung [place] HEART: Regular, rate controlled. Normal sinus rhythm. ABDOMEN: Soft, NT, ND, BS Present EXTREMITIES: Right LE edema with petechiae. Improved since last seen. Pedal pulses intact bilaterally NEURO: A&OX3 Assessment & Plan 77-year-old female on chronic supplemental oxygen at bedtime. Originally presented to the emergency department on 10/31/2017.pulmonary consultation was placed on 10/31/2017 and patient was seen by Dr. gillespie and treated for severe COPD and hypercapnia. She was placed on BiPAP and was treated initially with doxycycline as well as methylprednisolone 40 mg IV every 8 hours. She was also treated with levalbuterol and ipratropium. Pulmonary signed off 11/02/2017. Pulmonary was then asked to see the patient again on 11/04/2017 for hypoxia. Patient seemed to have had a cough with a mucous plug and had improvement to her pulse oximetry. Overnight the patient had additional desaturations and on 11/05/2017 Mucomyst nebulizers, incentive spirometry, and flutter valve were added for aggressive pulmonary toilet. The patient continued to desaturate and on 11/06/2017 a CTA of the chest was completed and was negative for pulmonary emboli but was significant for mucoid impaction at the bilateral bases. A pulmonary vest was added for pulmonary toilet and patient had increased sputum production and improvement in her pulmonary symptoms. On 11/08/2017 microbiology of sputum sample revealed Aspergillus fumigatus. Voriconazole 6 mg/kg every 12 hours 2 doses and 4 mg/kg every 12 hours IV was initiated. ID was consulted and the case was discussed with Dr. Malone who suspected pulmonary colonization. A bronchoscopy was scheduled for 11/10/2017 and it was determined voriconazole will be continued pending bronchial samples by lavage. Patient continued with aggressive pulmonary toilet over the weekend and seemed to have some improvement but not significant in nature. On 11/10/2017 patient underwent flexible fiberoptic bronchoscopy with Dr. Gordillo. Patient was found to be anatomically within normal limits with diffuse mucus plugging throughout the right lower lobe and large mucous plug obstructing the takeoff to the left lower lobe. Bronchial alveolar lavage was sent to the lab for further evaluation. Microbiology of the bronchial washings revealed multidrug-resistant Pseudomonas aeruginosa and patient was started on cefepime 1 g twice daily IV for a total of 10 days. First dose was administered 11/12/2017. Medication was ordered for 7 day course. It was identified after 7 days that the patient was to receive 10 days. Patient did not receive her second dose on 11/19/2017. Medication was resumed on 11/20/2017. On 11/17/2017 bronchial washings reported Aspergillus fumigatus in the left lower lobe. We are awaiting comment from Dr. Malone as to whether this should be treated or not. In the meantime, I have ordered an IgE to be collected with a.m. labs 11/21/2017. If IgE is elevated, patient may require long-term treatment with steroids and itraconazole or other antifungal agent. I have requested follow-up for Mrs. murrell with the outpatient pulmonary group at [facility] to follow the IgE level as patient will be discharged by the time this reference lab is returned. It is anticipated that the patient will be discharged 320 11/16 or 11/22/17. Follow-up in the outpatient office at [address] Thank you for including us in the care of this patient. We will follow-up with discharge planning tomorrow. Extended visit with patient today and working on discharge planning with case management, infection control, hospitalist physician, and in discussion with patient's daughter Beena Flannery Medications: Current Inpatient Medications Medications (Trade) Dose Ordered Sig/Liset Route Start Time Stop Time Status Last Admin Dose Admin Acetaminophen (Tylenol Tab) 650 mg Q4H PRN PO 10/31/17 14:15 11/30/17 14:14 11/02/17 08:07 650 MG Al Hydrox/Mg Hydrox/Simethicone (Maalox Max Susp) 15 ml Q4H PRN PO 10/31/17 14:15 11/30/17 14:14 Magnesium Hydroxide (Milk Of Magnesia Susp) 30 ml Q12H PRN PO 10/31/17 14:15 11/30/17 14:14 Ondansetron HCl (Zofran Inj) 4 mg Q6H PRN IV 10/31/17 14:15 11/30/17 14:14 Nitroglycerin (Nitrostat Tab) 0.4 mg UD PRN SL 10/31/17 14:15 11/30/17 14:14 Aspirin (Ecotrin Tab) 81 mg QAM PO 11/01/17 09:00 12/01/17 08:59 11/20/17 08:08 81 MG Polyethylene (Miralax Powder Packet) 17 gm DAILY PRN PO 10/31/17 14:15 11/30/17 14:14 Glucose (Glucose 40% Gel) 15-30 GRAMS 15 GRAMS... UD PRN PO 10/31/17 14:15 11/30/17 14:14 Glucose (Glucose Chew Tab) 4-8 Tablets 4 Tabl... UD PRN PO 10/31/17 14:15 11/30/17 14:14 Dextrose (Dextrose 50% 50ML Syringe) 25-50ML OF 50% DW IV FOR... UD PRN IV 10/31/17 14:15 11/30/17 14:14 Glucagon (Glucagon Inj) 1 mg UD PRN SQ 10/31/17 14:15 11/30/17 14:14 Miscellaneous Information (Consult Glycemic Management Pharmacy) 1 ea UD PRN N/A 10/31/17 15:08 11/30/17 15:07 Benzonatate (Tessalon Perles Cap) 100 mg BID PO 10/31/17 21:00 11/30/17 20:59 11/20/17 08:06 100 MG Multivitamins (Multivitamin Tab) 1 tab DAILY PO 11/01/17 09:00 12/01/17 08:59 11/20/17 08:06 1 TAB Sotalol HCl (Betapace Tab) 80 mg Q12 PO 10/31/17 21:00 11/30/17 20:59 11/20/17 08:06 80 MG Warfarin Sodium (Coumadin Tab) 5 mg SuTh@1600 PO 11/02/17 16:00 12/02/17 15:59 Future hold 11/20/17 15:43 5 MG Warfarin Sodium (Coumadin Tab) 2.5 mg MoTuWeFrSa@1600 PO 10/31/17 16:00 11/30/17 15:59 Future hold 11/19/17 16:31 2.5 MG Guaifenesin/ Dextromethorphan (Robitussin-Dm Syrup) 5 ml Q6H PRN PO 10/31/17 15:45 11/30/17 15:44 11/01/17 12:27 5 ML Salmeterol Xinafoate/ Fluticasone (Advair Diskus 500/50 Inh) 1 puff BID INH 10/31/17 16:15 11/30/17 16:14 11/20/17 08:06 1 PUFF Levalbuterol (Xopenex 0.63 Mg/ 3 Ml Neb) 0.63 mg Q3R PRN INH 10/31/17 17:15 11/30/17 17:14 11/01/17 10:28 0.63 MG Lisinopril (Zestril Tab) 20 mg QAM PO 11/03/17 09:00 12/03/17 08:59 11/20/17 08:07 20 MG Menthol (Nice Bernabe) 1 bernabe PRN PRN BERNABE 11/02/17 10:30 12/02/17 10:29 Amlodipine Besylate (Norvasc Tab) 5 mg DAILY PO 11/09/17 09:00 12/01/17 08:59 11/20/17 08:07 5 MG Insulin Aspart (novoLOG ASPART) SLIDING SCALE ACHS SC 11/17/17 09:00 12/19/17 08:59 Future hold 11/20/17 12:30 3 UNITS Insulin Glargine (Lantus Solostar Pen) 8 units HS SC 11/18/17 21:00 12/18/17 20:59 11/19/17 20:22 8 UNITS Metformin HCl (Glucophage Tab) 1,000 mg BIDM PO 11/17/17 17:00 12/17/17 16:59 11/20/17 16:58 1,000 MG Sodium Chloride ([place] Nasal [place]) 1 sprays PRN PRN NA 11/18/17 10:45 12/18/17 10:44 Cefepime HCl 1000 mg/Syringe 11 ml @ 5.5 mls/min Q12H IV 11/20/17 06:00 11/27/17 05:59 11/20/17 06:04 5.5 MLS/MIN I & O: 24-Hour Column 11/21/17 07:59 Intake Total 520 ml Output Total 700 ml Balance -180 ml Vital Signs: Date Time Temp Pulse Resp B/P (MAP) Pulse Ox O2 Delivery O2 Flow Rate FiO2 11/20/17 16:00 Nasal Cannula 2.0 11/20/17 15:28 36.9 85 20 99/56 (70) 95 Nasal Cannula 2.0 11/20/17 12:00 Room Air 2.0 11/20/17 10:58 37.1 89 18 127/80 (96) 96 11/20/17 08:15 Room Air 2.0 11/20/17 07:02 36.9 76 16 132/53 (79) 97 Room Air 2.0 11/20/17 04:25 36.5 76 16 155/62 (93) 96 Nasal Cannula 2.0 11/20/17 04:00 Nasal Cannula 2.0 11/20/17 00:00 Nasal Cannula 2.0 11/19/17 23:57 36.3 80 18 135/81 (99) 97 Nasal Cannula 2.0 11/19/17 20:00 Nasal Cannula 2.0 11/19/17 19:17 36.8 82 20 155/76 (102) 96 Nasal Cannula 2.0 Laboratory Results: Last 24 Hours Test 11/19/17 20:15 11/20/17 06:38 11/20/17 07:06 11/20/17 11:03 Bedside Glucose 197 mg/dl 104 mg/dl 145 mg/dl Prothrombin Time 19.6 SECONDS Prothromb Time International Ratio 1.9 Test 11/20/17 16:39 Bedside Glucose 106 mg/dl
[2017-11-20] MEDS: INSULIN GLARGINE SOLOSTAR 100 UNITS/ML 3 ML PEN SC SCH (20:56)
[2017-11-21 03:14] VITALS: BP 104/65; PULSE 71; TEMP 36.7; O2SAT 97
[2017-11-21] MEDS: CEFEPIME IV 1,000 MG in SYRINGE 0 ML IV SCH (05:44)
[2017-11-21 07:25] VITALS: BP 122/70; PULSE 74; TEMP 36.6; O2SAT 97
[2017-11-21 07:58] VITALS: BP 132/73; PULSE 83
[2017-11-21] MEDS: ASPIRIN 81 MG ECTAB PO SCH (08:00)
[2017-11-21] MEDS: METFORMIN HCL 500 MG TAB PO SCH (08:00)
[2017-11-21] MEDS: AMLODIPINE BESYLATE 5 MG TAB PO SCH (08:00)
[2017-11-21] MEDS: LISINOPRIL 20 MG TAB PO SCH (08:01)
[2017-11-21] MEDS: MULTIVITAMIN TAB PO SCH (08:01)
[2017-11-21] MEDS: BENZONATATE 100MG CAP PO SCH (08:01)
[2017-11-21] MEDS: FLUTICASONE/SALMETEROL (ADVAIR) 500/50 INH 14 PUFF INH SCH (08:02)
[2017-11-21] MEDS: INSULIN ASPART 100 UNITS/ML 3 ML PEN SC SCH ×2 (08:07→11:00)
[2017-11-21 08:24] LABS: INR 1.8 (0.9-1.1)
[2017-11-21] MEDS: SOTALOL HCL 80 MG TAB PO SCH (08:39)
--- NOTE | 2017-11-21 09:46 | Pharmacy Progress Note ---
Glycemic: Assessment & Plan Date of Service Nov 21, 2017. Assessment & Plan The patient is currently receiving 16 units of insulin per day. BSGs ranging 104 - 145 mg/dl over the past 24hrs. * Basal insulin: Lantus 8 units every 24 hours * Correctional Insulin: Novolog Correction per scale ACHS Goal Range: Low 120 mg/dL - High 150 mg/dL Correction Factor: 30 mg/dL/unit * Prandial insulin: Per carb ratio of 1 unit per 15 grams CHO consumed BSGs continue to improve, no changes needed to inpatient regimen at this time. Pharmacy will continue to monitor patient daily and write orders per [facility] inpatient glycemic control protocol. Thanks. * Please note that the plan above was derived based on current level of insulin resistance and hospital stress. These recommendations are appropriate for inpatient admission only. Plan of care upon discharge will need to be reassessed to avoid potential outpatient hypo/hyperglycemia.
--- NOTE | 2017-11-21 10:03 | Consultant Recommendations ---
Head Waiter/Waitress Banquet Recommendations Date of Service Nov 21, 2017. Head Waiter/Waitress Banquet Recommendations Pulmonary Follow Up 12/04/2017 at 10:45am with Keely Baker PA-C [facility]. Please call [phone] if you need to change your appointment time.
[2017-11-21 11:28] VITALS: BP 101/62; PULSE 78; TEMP 36.4; O2SAT 99
--- NOTE | 2017-11-21 12:50 | Progress Note ---
Medicine Progress Note Date & Time of Visit: Nov 21, 2017 at 12:45. Subjective Seen sitting up in bedside chair comfortable In very good spirits States she feels great overall Denies shortness of breath cough chest pain Ambulated today with no problems Denies other symptoms States she is ready for discharge today Objective Last 8 Hrs Date Time Temp Pulse Resp B/P (MAP) Pulse Ox O2 Delivery O2 Flow Rate FiO2 11/21/17 12:00 Nasal Cannula 2.0 11/21/17 11:28 36.4 78 18 101/62 (75) 99 Nasal Cannula 2.0 11/21/17 08:00 Nasal Cannula 2.0 11/21/17 07:58 83 132/73 (92) 11/21/17 07:25 36.6 74 18 122/70 (87) 97 Room Air Physical Exam: General- oriented x 3, not in distress, speaks in sentences with some effort, no accessory muscle use Eyes- anicteric Lungs- clear breath sounds bilaterally no wheezing no rales Heart- regular rhythm; no murmur, normal rate Abdomen- normal bowel sounds, soft, nontender Extremities-no lower leg edema, no tenderness/warmth/erythema left lower leg normal Neuro- alert, oriented x 3; no gross focal neurologic deficits Skin- warm & dry Laboratory Results: Last 24 Hours Test 11/20/17 16:39 11/20/17 20:10 11/21/17 06:39 11/21/17 07:34 Bedside Glucose 106 mg/dl 131 mg/dl 106 mg/dl Test 11/21/17 08:07 11/21/17 11:20 Prothrombin Time 18.9 SECONDS Prothromb Time International Ratio 1.8 Bedside Glucose 107 mg/dl Assessment & Plan Patient is a 77 yr female with a PMH of severe COPD and chronic respiratory failure on 4L of O2 continuously, DM II, HTN, and paroxysmal atrial fibrillation on long-term anticoagulation presents with worsening shortness of breath Acute on Chronic Hypoxic Respiratory Failure Secondary to Acute COPD Exacerbation likely from Acute Bronchitis On Chronic Oxygen S/P Bronchoscopy: (+) mucus plug removed CXR: no acute findings Flu PCR: negative Sputum culture: (+) Aspergillus; Bronch Wash culture: Pseudomonas, mdr, Aspergillus Infectious disease service consulted Dr. Malone Completed cefepime IV 9 days Completed Prednisone course Continue Guero jane PRN Follow up with pulmonary service of [facility] physicians group December 04, 2017 Right Lower Leg Edema Likely secondary to IVF, meds no signs of cellulitis Venous Doppler: No DVT Improved after Lasix P. Atrial Fibrillation on Long-term anticoagulation currently NSR continue Sotalol INR 1.8 on discharge day November 21, 2017 Coumadin 5 mg on discharge day Then continue Coumadin regimen as usual Coumadin clinic informed, they will follow-up on patient closely HTN Stable continue Amlodipine, Lisinopril DM II Ha1c: 7.0 Continue usual Lantus 12 units at at bedtime DVT Px -- on coumadin Code Status: -- Full Code Disposition Discharge home today Follow up with PCP to 5 days Follow-up with pulmonary with [facility] physicians group on December 04, 2017 Current Inpatient Medications: Current Inpatient Medications Medications (Trade) Dose Ordered Sig/Liset Route Start Time Stop Time Status Last Admin Dose Admin Acetaminophen (Tylenol Tab) 650 mg Q4H PRN PO 10/31/17 14:15 11/30/17 14:14 11/02/17 08:07 650 MG Al Hydrox/Mg Hydrox/Simethicone (Maalox Max Susp) 15 ml Q4H PRN PO 10/31/17 14:15 11/30/17 14:14 Magnesium Hydroxide (Milk Of Magnesia Susp) 30 ml Q12H PRN PO 10/31/17 14:15 11/30/17 14:14 Ondansetron HCl (Zofran Inj) 4 mg Q6H PRN IV 10/31/17 14:15 11/30/17 14:14 Nitroglycerin (Nitrostat Tab) 0.4 mg UD PRN SL 10/31/17 14:15 11/30/17 14:14 Aspirin (Ecotrin Tab) 81 mg QAM PO 11/01/17 09:00 12/01/17 08:59 11/21/17 08:00 81 MG Polyethylene (Miralax Powder Packet) 17 gm DAILY PRN PO 10/31/17 14:15 11/30/17 14:14 Glucose (Glucose 40% Gel) 15-30 GRAMS 15 GRAMS... UD PRN PO 10/31/17 14:15 11/30/17 14:14 Glucose (Glucose Chew Tab) 4-8 Tablets 4 Tabl... UD PRN PO 10/31/17 14:15 11/30/17 14:14 Dextrose (Dextrose 50% 50ML Syringe) 25-50ML OF 50% DW IV FOR... UD PRN IV 10/31/17 14:15 11/30/17 14:14 Glucagon (Glucagon Inj) 1 mg UD PRN SQ 10/31/17 14:15 11/30/17 14:14 Miscellaneous Information (Consult Glycemic Management Pharmacy) 1 ea UD PRN N/A 10/31/17 15:08 11/30/17 15:07 Benzonatate (Tessalon Perles Cap) 100 mg BID PO 10/31/17 21:00 11/30/17 20:59 11/21/17 08:01 100 MG Multivitamins (Multivitamin Tab) 1 tab DAILY PO 11/01/17 09:00 12/01/17 08:59 11/21/17 08:01 1 TAB Sotalol HCl (Betapace Tab) 80 mg Q12 PO 10/31/17 21:00 11/30/17 20:59 11/21/17 08:39 80 MG Warfarin Sodium (Coumadin Tab) 5 mg SuTh@1600 PO 11/02/17 16:00 12/02/17 15:59 Future hold 11/20/17 15:43 5 MG Warfarin Sodium (Coumadin Tab) 2.5 mg MoTuWeFrSa@1600 PO 10/31/17 16:00 11/30/17 15:59 Future hold 11/19/17 16:31 2.5 MG Guaifenesin/ Dextromethorphan (Robitussin-Dm Syrup) 5 ml Q6H PRN PO 10/31/17 15:45 11/30/17 15:44 11/01/17 12:27 5 ML Salmeterol Xinafoate/ Fluticasone (Advair Diskus 500/50 Inh) 1 puff BID INH 10/31/17 16:15 11/30/17 16:14 11/21/17 08:02 1 PUFF Levalbuterol (Xopenex 0.63 Mg/ 3 Ml Neb) 0.63 mg Q3R PRN INH 10/31/17 17:15 11/30/17 17:14 11/01/17 10:28 0.63 MG Lisinopril (Zestril Tab) 20 mg QAM PO 11/03/17 09:00 4/4/18 08:59 11/21/17 08:01 20 MG Menthol (Nice Bernabe) 1 bernabe PRN PRN BERNABE 11/02/17 10:30 12/02/17 10:29 Amlodipine Besylate (Norvasc Tab) 5 mg DAILY PO 11/09/17 09:00 12/01/17 08:59 11/21/17 08:00 5 MG Insulin Aspart (novoLOG ASPART) SLIDING SCALE ACHS SC 11/17/17 09:00 12/19/17 08:59 Future hold 11/21/17 08:07 3 UNITS Insulin Glargine (Lantus Solostar Pen) 8 units HS SC 11/18/17 21:00 12/18/17 20:59 11/20/17 20:56 8 UNITS Metformin HCl (Glucophage Tab) 1,000 mg BIDM PO 11/17/17 17:00 12/17/17 16:59 11/21/17 08:00 1,000 MG Sodium Chloride ([place] Nasal [place]) 1 sprays PRN PRN NA 11/18/17 10:45 12/18/17 10:44 Cefepime HCl 1000 mg/Syringe 11 ml @ 5.5 mls/min TODAY@1400 ONCE IV 11/21/17 14:00 11/21/17 14:01
[2017-11-21] MEDS ORDERED: OXGN (12:53)
[2017-11-21] MEDS ORDERED: ADVIN50050 INH (12:53)
[2017-11-21] MEDS ORDERED: BENZ-54 PO (12:53)
--- NOTE | 2017-11-21 13:00 | Discharge Summary ---
Discharge Summary Date of Service Nov 21, 2017. Discharge Summary Admission Date: Oct 31, 2017 at 12:57 Discharge Date: Nov 21, 2017 Discharge Disposition: Home Principal Diagnosis: Acute on Chronic Hypoxic Respiratory Failure Secondary to Acute COPD Exacerbation from Pseudomonas Pneumonia Secondary Diagnoses/Problems: Please refer to hospital course below. Procedures: Bronchoscopy Procedure Note Procedure: Bronchoscopy, conscious sedation, bronchial lavage Consent: Obtained through the patient placed into the chart Pre-procedural diagnosis: Chronic bronchitis acute flare Post-procedural diagnosis: Chronic bronchitis with acute flare Start time: 1025 End time: 1045 Total time: 20minutes Analgesia: 2% liquid lidocaine: Via nebulizer 4% gel lidocaine: Via right naris 2% liquid lidocaine: Via bronchoscopy Sedation: Versed IV: 2mg Fentanyl IV: 50g Procedure: The [employer] video bronchoscope was used for this procedure and passed down through the right naris Right naris/posterior naris/posterior oropharynx: Proximal portions of the naris was notably erythematous with mild bleeding Glottis: Anatomically within normal limits Vocal cords: Proper abduction and abduction, anatomically within normal limits Subglottis/trachea/Idania: Anatomically within normal limits Right bronchial tree: Right mainstem bronchus: Anatomically within normal limits Right upper lobe: Anatomically within normal limits Bronchus intermedius: Anatomically within normal limits Right middle lobe: Anatomically within normal limits Right lower lobe: Anatomically within normal limits, diffuse mucus plugging found throughout the right lower lobe Findings: Diffuse mucus plugging found throughout the right lower lobe Left bronchial tree: Left mainstem bronchus: Anatomically within normal limits Left upper lobe: Anatomically within normal limits Lingula: Anatomically within normal limits Left lower lobe: Anatomically within normal limits, large mucous plug obstructing the takeoff to the left lower lobe Findings: Large mucous plug obstructing the takeoff to the left lower lobe Bronchial alveolar lavage: Left lower lobe EBL: none Complications: None Follow-up: [facility] [~ rep ct add3]] CHEST CTA for PULMONARY ARTERIES CT DOSE: 193.87 mGy.cm HISTORY: Atypical chest pain. TECHNIQUE: Multiaxial CT images of the chest were performed following the intravenous administration of contrast to evaluate the pulmonary arteries. Maximal intensity projection images were also obtained. A dose lowering technique was utilized adhering to the principles of ALARA. COMPARISON STUDY: Chest CTA 12/07/2013. 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 Normal caliber thoracic aorta with no evidence for dissection. The heart is normal in size. No pleural or pericardial effusions. No filling defects within the pulmonary arteries to suggest pulmonary embolus. No suspicious lytic or blastic osseous lesions. Focal area of coarse calcifications within the left breast suggestive of postoperative changes. The visualized portions of the liver, spleen, and right adrenal gland are unremarkable. Stable 1 cm left adrenal gland nodule. No mediastinal or hilar lymphadenopathy. No pneumothorax. Mild emphysema. Near-complete opacification of the majority of the bilateral lower lobe bronchi. Small amount of mucoid material within the proximal intermedius and left mainstem bronchus. Small linear scarlike densities at the lung apices. A few small linear densities within the lung bases favor subsegmental atelectasis. A stable 2 mm subpleural nodule within the right lung apex on image 243. Therefore, this is benign. No new or suspicious pulmonary nodules identified. Mild interlobular septal thickening most pronounced at the lung apices. This may be chronic. Mild subpleural reticulation within the left upper lobe anteriorly. This favors post radiation change. IMPRESSION: 1. No evidence for pulmonary embolus. 2. Near complete opacification of the bilateral lower lobe bronchi likely due to mucoid material. This may be due to recent aspiration. 3. Mild interlobular septal thickening most pronounced at the lung apices. This is likely chronic. 3. Mild emphysema. 4. Suspected postoperative changes within the left breast. Electronically signed by: Robert Zendejas M.D. 11/06/2017 12:00 PM [~ rep ct add3]] ABDOMEN AND PELVIS CT WITHOUT CONTRAST CT DOSE: 237.74 mGy.cm HISTORY: Right leg swelling. r/o intraabdominal mass/malignancy TECHNIQUE: Multiaxial CT images of the abdomen and pelvis were performed without contrast. A dose lowering technique was utilized adhering to the principles of ALARA. COMPARISON STUDY: None. FINDINGS: A few linear densities at the lung bases consistent with subsegmental atelectasis. No pneumoperitoneum. No pneumatosis. Small amount of soft tissue gas within the left lower quadrant abdominal wall likely due to prior medication injection. No suspicious lytic or blastic osseous lesions. Mild diffuse body wall edema. Suboptimal evaluation for an intra-abdominal abnormality due to the lack of intravenous and oral contrast. However, the unenhanced liver, gallbladder, spleen, adrenal glands, and pancreas are unremarkable. No retroperitoneal lymphadenopathy or a retroperitoneal mass. Punctate cortical calcification within the right kidney. No hydronephrosis. No renal calculi. Pelvic floor collapse. The bladder is unremarkable. The uterus and ovaries are within normal limits for age. No significant pelvic free fluid. No definite bowel wall thickening or obstruction. A few colonic diverticula. Moderate well-formed stool seen throughout the colon. Normal appendix. IMPRESSION: 1. Mild diffuse body wall edema. 2. No bowel wall thickening or obstruction. 3. No definite intraabdominal masses on this noncontrast study. 4. Additional findings as described above. Electronically signed by: Robert Zendejas M.D. 11/12/2017 3:10 PM Dictated Date/Time: 11/12/2017 3:02 PM Consultations: PULMONARY DR. SHANE, INFECTIOUS DISEASE DR. NICOLAS Pending Studies/Follow-Up: PLEASE REFER TO HOSPITAL COURSE BELOW. Medication Reconciliation New Medications: Fluticasone Prop/Salmeterol (Advair Diskus 500-50 Mcg/Dose) 14 Puff/1 Inhaler Aerp 1 PUFF INH BID for 30 Days, #1 INHALER 2 Refills Changed Medications: Benzonatate (Tessalon Perles) 100 Mg Cap 100 MG PO BID PRN for Cough for 30 Days, #60 CAP (Medication details modified) Home O2 Therapy (Oxygen) Gas 2 LITERS NA CONTINOUS for 30 Days, #1 (Changed from: 4 LITERS; Removed Instructions) Continued Medications: Albuterol Sulfate (Proair Respiclick) 108 Mcg/Act Aer 2 PUFFS INH Q4 PRN for SOB/Wheezing Amlodipine (Norvasc) 5 Mg Tab 5 MG PO DAILY Aspirin (Aspirin 81) 81 Mg Tab 1 TAB PO DAILY Calcium Carbonate-Cholecalcife (Caltrate 600+D) 1 Tab Tab 2 TAB PO DAILY Insulin Glargine (Lantus) 100 Unit/Ml Inj 12 UNITS SC HS Ipratropium-Albuterol (Duoneb) 3 Ml Nebu 1 TREATMENT INH Q4H PRN for SOB/Wheezing Lisinopril/Hctz (Zestoretic 20MG/25MG) Tab 1 TAB PO DAILY Metformin HCl (Metformin HCl ER) 1,000 Mg Tab 1000 MG PO BID Multiple Vitamin (Multivitamin) 1 Tab Tab 1 TAB PO DAILY for 90 Days, #90 TAB 3 Refills Sotalol HCl (Sotalol HCl) 80 Mg Tab 80 MG PO Q12 Warfarin Sodium (Warfarin Sodium) 2.5 Mg Tab 2.5 MG PO UD 2 tab po Sun, Thur 1 tab po Mon, Tue, Wed, Fri, Sat Admission Information HPI (per Admitting provider): Pt is 77 y/o F with PMH COPD with hypoxemia on 4L oxygen, HTN, DM II, paroxysmal a-fib on Coumadin, mitral regurgitation who presented to ER with c/o increased SOB & cough x couple of days. Pt called palliative care physician office 10/01/17 with myalgias, cough, SOB. She denied having influenza swab at that time, and her symptoms were reported for one week , so no Tamiflu was given. She had prednisone for 5 days and Tessalon Perles. Seen by Carri RODRIGUEZ-pulmonology [facility] on 10/07/17. At that time pt presented to office not using her oxygen and sats were 86% on RA. At that visit pt feeling improvement of her symptoms. Pt with hx intolerance to inhalers in past. She was rx Dulera recently, however pt reportedly never picked it up as the other inhalers in past never worked. She states past couple of days with cough and increased SOB at rest and unable to walk couple of steps without worsening SOB. Cough productive clear. She reports has been using 4L NC oxygen at home and using her DuoNeb Q4H with using albuterol inhaler in between nebs without much relief. Restarted prednisone rescue kit yesterday with 40 mg daily and using Tessalon Perles. Presented to ER today as symptoms not improving. This morning felt nauseated, vomited once. Hasn't eaten yet today. Denies fever/chills, diaphoresis, diarrhea, constipation, DÍAZ, dizziness, syncope, vision changes, neck pain, CP, palpitations, hemoptysis, sore throat, choking, otalgia, rhinorrhea, abdominal pain, paresthesias, weakness, extremity edema, rashes, urinary symptoms. In ER today sats 78% on RA up to 95% on oxymask. Afebrile. R: 26-32, BP: 158/ 99. WBC: 13, NA: 129, K: 3.3, Gluc: 152. negative troponin. INR: 2.5. Pending blood cultures. EKG: NSR, rate 86, CXR: no acute. Pt given hour long DuoNeb and Solu-medrol in ER with some improvement. Physical Exam (per Admitting): General Appearance: WD/WN, + mild distress (respiratory distress) Head: normocephalic, atraumatic Eyes: normal inspection, PERRL, sclerae normal ENT: hearing grossly normal, + pertinent finding (mucous membranes) Neck: supple, no JVD, no carotid bruits Respiratory/Chest: + respiratory distress, + decreased breath sounds, + accessory muscle use Cardiovascular: regular rate, rhythm, normal peripheral pulses, + systolic murmur Abdomen/GI: normal bowel sounds, non tender, soft Extremities/Musculoskelatal: normal inspection, normal capillary refill, no pedal edema Neurologic/Psych: alert, normal mood/affect, oriented x 3 Skin: normal color, warm/dry Hospital Course Patient is a 77 yr female with a PMH of severe COPD and chronic respiratory failure on 4L of O2 continuously, DM II, HTN, and paroxysmal atrial fibrillation on long-term anticoagulation presents with worsening shortness of breath Acute on Chronic Hypoxic Respiratory Failure Secondary to Acute COPD Exacerbation from Pseudomonas Pneumonia On Chronic Oxygen initially placed on antibiotics, steroids with no improvement, requiring increased oxygen supplement Pulmonary consulted, placed on Bipap, Vibrating Vest S/P Bronchoscopy by Dr. Shane: (+) mucus plug removed Sputum culture: (+) Aspergillus Bronch Wash culture: Pseudomonas, MDR, Aspergillus Infectious disease service consulted Dr. Nicolas Completed cefepime IV 9 days, Aspergillus felt to be colonization Completed Prednisone course Improved overall back to baseline 2 L via Nasal cannula Continue advair, Nebs PRN Follow up with pulmonary service of [facility] December 04, 2017 Right Lower Leg Edema Likely secondary to IVF, meds no signs of cellulitis Venous Doppler: No DVT Improved after Lasix P. Atrial Fibrillation on Long-term anticoagulation currently NSR continue Sotalol INR 1.8 on discharge day November 21, 2017 Coumadin 5 mg on discharge day Then continue Coumadin regimen as usual Coumadin clinic informed, they will follow-up on patient closely HTN Stable continue Amlodipine, Lisinopril DM II Ha1c: 7.0 Continue usual Lantus 12 units at at bedtime Disposition Discharge home Follow up with PCP to 5 days Follow-up with pulmonary with [facility] on December 04, 2017 Total time spent on discharge = 35 mins This includes examination of the patient, discharge planning, medication reconciliation, and communication with other providers. Discharge Instructions Discharge Instructions Date of Service Nov 21, 2017. Admission Reason for Admission: Copd Exacerbation Discharge Discharge Diagnosis / Problem: COPD exacerbation secondary to pneumonia Discharge Goals Goal(s): Diagnostic testing, Therapeutic intervention Activity Recommendations Activity Limitations: as noted below (No heavy exertion until seen by primary care physician) Lifting Limitations: until after follow-up appointment Exercise/Sports Limitations: until after follow-up appointment Driving or Machine Use: No driving until follow-up with primary care physician . Instructions / Follow-Up Instructions / Follow-Up PLEASE REVIEW NEW MEDICATION LIST AND FOLLOW INSTRUCTIONS CAREFULLY CALL PRIMARY CARE PHYSICIAN OR RETURN TO ER IMMEDIATELY IF WITH RECURRENCE OF SYMPTOMS, INCREASING SHORTNESS OF BREATH, COUGH, PHLEGM, FEVER/CHILLS, DIARRHEA, LEG SWELLING. FOLLOW UP WITH DR. MEJIA ON NOVEMBER 06, 2017 AT 11:20AM. Pulmonary Follow Up 12/04/2017 at 10:45am with [facility] [address] [place] [address]. Please call [phone] if you need to change your appointment time. THE [facility] WILL CALL YOU FOR APPOINTMENT. Current Hospital Diet Patient's current hospital diet: AHA Diet (Heart Healthy), Diabetes Type 2 Diet Discharge Diet Recommended Diet: AHA Diet (Heart Healthy), Diabetes Type 2 Diet Procedures Procedures Performed: bronchoscopy Pending Studies Studies pending at discharge: no Laboratory Results Hemoglobin A1c Test 11/01/17 05:21 Range/Units Estimated Average Glucose 154 mg/dl Hemoglobin A1c 7.0 H 4.5-5.6 % Medical Emergencies . Who to Call and When: Medical Emergencies: If at any time you feel your situation is an emergency, please call 911 immediately. . Non-Emergent Contact Non-Emergency issues call your: Primary Care Provider, Basic Sciences Professor Call Non-Emergent contact if: you have a fever, you have any medication questions . . "Provider Documentation" section prepared by Logan Minaya. . Collection Support Specialist Recommendations Collection Support Specialist Recommendations: Pulmonary Follow Up 12/04/2017 at 10:45am with [facility] [address] [place] [address]. Please call [phone] if you need to change your appointment time.
[2017-11-21 13:15] VITALS: BP 101/62; PULSE 78; TEMP 36.4; O2SAT 99
[2017-11-21] MEDS ORDERED: CEFEPIME IV 1,000 MG in SYRINGE 0 ML IV ONE (14:00)
[2017-11-21] MEDS: WARFARIN SOD 2.5 MG TAB PO SCH (14:20)
--- NOTE | 2017-11-21 15:45 | Pulmonology Progress Note ---
Pulmonary Progress Note Date of Service Nov 21, 2017. Attending Dr. Salazar Subjective Patient seen and examined at bedside. No shortness of breath. No fever. Continues to tolerate 2 L of supplemental O2 via nasal cannula. No cough or sputum. Objective GENERAL : No acute distress. Pleasant. No conversational dyspnea EYES: No icterus, gaze conjugate. Peripheral NOSE: No evidence of epistaxis. Nasal cannula in place MOUTH: No lesions or candidiasis NECK: Supple LUNGS: CTA. No bronchospasm or rales or rhonchi. Good aeration in all lung bartlett HEART: Regular, rate controlled. Normal sinus rhythm. ABDOMEN: Soft, NT, ND, BS Present EXTREMITIES: Right LE edema with petechiae. Improved since last seen. Pedal pulses intact bilaterally NEURO: A&OX3 Assessment & Plan COPD * Back to baseline * Continue home regimen of medications * Continue supplemental O2. Titrate as an outpatient MDRO PSEUDOMONAS PNEUMONIA * Completed 10 days of IV cefepime * Followed by infectious disease -appreciate Dr. Malone's input * Discharge home today ASPERGILLUS FUMIGATUS PNEUMONIA * Positive in the sputum as well as bronchial washings * Received 4 days of voriconazole then stopped * IgE pending * Dr. Malone as well as Dr. Gordillo feel that this is contaminant * No further intervention HYPOXIA * Continue supplemental O2 -titrate as possible at home DISPOSITION * Discharge home today FOLLOW-UP: * Please refer to my note from yesterday for full hospital course * Follow-up with Keely Umaña PA-C December 04, 2017 at 1045 * Patient aware Thank you for including us in the care of this patient. We will follow her as an outpatient Data I & O: 24-Hour Column 11/22/17 08:00 Output Total 0 ml Balance 0 ml Vital Signs: Date Time Temp Pulse Resp B/P (MAP) Pulse Ox O2 Delivery O2 Flow Rate FiO2 11/21/17 13:15 36.4 78 18 99 Nasal Cannula 11/21/17 12:00 Nasal Cannula 2.0 11/21/17 11:28 36.4 78 18 101/62 (75) 99 Nasal Cannula 2.0 11/21/17 08:00 Nasal Cannula 2.0 11/21/17 07:58 83 132/73 (92) 11/21/17 07:25 36.6 74 18 122/70 (87) 97 Room Air 11/21/17 04:00 Nasal Cannula 2.0 11/21/17 03:14 36.7 71 16 104/65 (78) 97 Nasal Cannula 2.0 11/21/17 00:00 Nasal Cannula 2.0 11/20/17 23:57 36.2 77 18 95/53 (67) 95 Nasal Cannula 2.0 11/20/17 20:51 82 110/53 (72) 11/20/17 20:00 Nasal Cannula 2.0 11/20/17 19:04 36.5 82 20 103/59 (74) 96 Nasal Cannula 2.0 11/20/17 16:00 Nasal Cannula 2.0 Laboratory Results: Last 24 Hours Test 11/20/17 16:39 11/20/17 20:10 11/21/17 06:39 11/21/17 07:34 Bedside Glucose 106 mg/dl 131 mg/dl 106 mg/dl Test 11/21/17 08:07 11/21/17 11:20 Prothrombin Time 18.9 SECONDS Prothromb Time International Ratio 1.8 Bedside Glucose 107 mg/dl
[2017-11-21] MEDS ORDERED: WARFARIN SOD 2.5 MG TAB PO ONE (16:00)
== END 2017-11-21 15:00 | disposition home health service (06) | DRG 166 ==
LOC: EDBD 10:55 → C.EDC 10:55 → UNDOADMIN 12:57 → C.MED 12:57 → ENRESERV 13:52 → C.MED 11-05 00:02
PROVIDERS: ADMIT Hospitalist; ATTEND Internal Medicine
PROC: 0B9J8ZX Drainage of Left Lower Lung Lobe, Via Natural or Artificial Opening Endoscopic, Diagnostic (ICD-10-PCS; principal; 2017-11-10 11:00)
DX: J15.1 Pneumonia due to Pseudomonas (principal); J96.21 Acute and chronic respiratory failure with hypoxia; J96.22 Acute and chronic respiratory failure with hypercapnia; E87.1 Hypo-osmolality and hyponatremia; J44.0 Chronic obstructive pulmonary disease with (acute) lower respiratory infection; J44.1 Chronic obstructive pulmonary disease with (acute) exacerbation; B44.1 Other pulmonary aspergillosis; J20.9 Acute bronchitis, unspecified; T17.990A Other foreign object in respiratory tract, part unspecified in causing asphyxiation, initial encounter; I48.0 Paroxysmal atrial fibrillation; R60.0 Localized edema; I34.0 Nonrheumatic mitral (valve) insufficiency; E11.9 Type 2 diabetes mellitus without complications; I10 Essential (primary) hypertension; E87.6 Hypokalemia; Z79.01 Long term (current) use of anticoagulants; Z79.4 Long term (current) use of insulin; Z79.84 Long term (current) use of oral hypoglycemic drugs; Z79.899 Other long term (current) drug therapy; Z86.19 Personal history of other infectious and parasitic diseases; Z87.891 Personal history of nicotine dependence; Z99.81 Dependence on supplemental oxygen; Z92.3 Personal history of irradiation; Z85.3 Personal history of malignant neoplasm of breast; Z83.3 Family history of diabetes mellitus; Z82.49 Family history of ischemic heart disease and other diseases of the circulatory system; X58.XXXA Exposure to other specified factors, initial encounter

== ENCOUNTER 2021-08-04 14:39 | Inpatient (IN) ==
--- NOTE | 2021-08-04 14:55 | Emergency Department Note ---
Impression & Plan Respiratory failure with hypoxia, COPD (chronic obstructive pulmonary disease), Community acquired pneumonia ED Provider Note Provider: Jake Richmond MD DATE OF SERVICE: 08/04/2021 CHIEF COMPLAINT: Shortness of breath HISTORY OF PRESENT ILLNESS: Patient is a 81-year-old female history of COPD with chronic hypoxic respiratory failure on 3 and half liters of oxygen, history of left-sided breast cancer, grade 1 diastolic dysfunction, paroxysmal atrial fibrillation on sotalol and Coumadin, hypertension presenting today via ambulance from her home with significant shortness of breath. Patient states that she has been ill over the past month with some shortness of breath and cough. Has worsened over the past 2 weeks. Has been turning up her oxygen at home. No sick contacts reported. She is vaccinated for flu but not vaccinated for Covid per her report. Patient was reported to be hypoxic on her home oxygen and was very tachypneic respiratory rates exceeding 50 breaths/min. Transition to CPAP in the prehospital setting received 3 DuoNeb's via this as well as 125 mg of Solu-Medrol. Patient denies recent steroid usage. Patient denies chest pain or fevers. Patient denies significant leg swelling. REVIEW OF SYSTEMS: A total of 10 review of systems was obtained and negative except as stated above in the HPI. PAST MEDICAL HISTORY: As noted above MEDICATIONS: Reviewed home medication list includes Coumadin SOCIAL HISTORY: Former smoker, lives at home PHYSICAL EXAM: GENERAL: alert and oriented on stretcher CPAP in place mildly anxious appearing Head: normocephalic and atraumatic EYES: No injection, discharge or icterus. NECK: Trachea midline. ENT: Mucous membranes pink and moist. LUNGS: Airway patent. No retractions but some tachypnea and increased work of breathing. Breath sounds with mild expiratory wheeze HEART: Regular rate and rhythm. No chest wall tenderness ABDOMEN: Soft and non-tender, without guarding or rebound. SKIN: Acyanotic, warm, dry, without rashes EXTREMITIES: Without swelling, tenderness or deformity NEUROLOGICAL: No focal deficits moving all extremities to command. No aphasia. No facial droop or slurred speech. EK bpm sinus rhythm with PACs. No acute ST segment With a left bundle branch block. QTc 504. Compared to previous from October 2017 new left bundle branch block. CONTINUOUS CARDIAC MONITORING: was ordered and showed a heart rate of 90-100s bpm in sinus rhythm to sinus tachycardia with a left bundle branch block Patient's laboratory studies and imaging reviewed. Differential includes Reactive airway disease, pneumonia, pneumothorax, COPD, CHF, infections, cardiac ischemia, pulmonary embolism, musculoskeletal, gastrointestinal, as well as other pathologies. IMPRESSION/MEDICAL DECISION MAKING: Patient with hypoxic respiratory failure acute on chronic now on BiPAP in the emergency department. Patient not vaccinated for Covid and Covid test sent. Received steroids and DuoNeb prior to arrival. Patient is on warfarin and INR was checked. Basic labs and EKG obtained. Patient denies any chest discomfort. Patient is not altered. No trauma reported. Does not appear fluid overloaded. Prior medical records/pulmonary notes reviewed. History of Pseudomonas multidrug-resistant and aspergillosis from 2018 [facility]. Chest x-ray per radiology questions interstitial thickening and possible bibasilar opacities. White blood cell count is somewhat elevated to 14. INR is supratherapeutic at 4.6. Not acidotic. Some acute hyponatremia noted. Renal function stable. No transaminitis or concerning troponin elevation. EKG again is reassuring. Covid RSV and flu negative. Procalcitonin sent 0.13 and is lower suspicion for sepsis. Patient appears much more comfortable while on BiPAP here for several hours however in attempting to use bedside commode, patient became very SOB and tachypnic again just moving from bed pivoting to commode. Cover doxycycline for atypical components given history of resistant Pseudomonas peers to cefepime several years ago given a dose of cefepime here empirically. Updated patient. Given her worsening respiratory status requiring BiPAP discussed with her further care here at the hospital. The hospitalist team was alerted. Patient is already received DuoNeb x3 as well as Solu-Medrol prior to arrival. Will defer additional at this point given her history of A. fib. DIAGNOSIS: Hypoxic respiratory failure, COPD exacerbation, pneumonia DISPOSITION: Hospitalist will evaluate Patient was agreeable with this plan. Critical Care I have personally spent 33 minutes of critical care time in the direct management of this patient. This includes bedside care, interpretation of diagnostic studies, and testing, discussion with consultants, patient, and other required patient management activities. These 33 minutes is in excess of all separately billable procedures. Past Med/Surg History Medical History CHF (congestive heart failure) (12/07/13) Chronic respiratory failure with hypoxia COPD (chronic obstructive pulmonary disease) COPD exacerbation (12/07/13) DCIS (ductal carcinoma in situ) of breast Diabetes Hypertension Insulin dependent diabetes mellitus Paroxysmal atrial fibrillation Respiratory failure with hypoxia Surgical History History of carpal tunnel release History of dental surgery History of partial mastectomy History of tubal ligation Family History Mother Diabetes Other Breast cancer Social History Smoking Status: Former smoker packs per day: 0.5; Years Smoked: 20; Hx Alcohol Use: No Hx Substance Use: No Preferred Language: Com[place] Communication Ability: Effective marital status: / Current Living Situation: Alone Feels Safe at Home: Yes Allergies Allergies Allergy/AdvReac Type Severity Reaction Status Date / Time amoxicillin [From Augmentin] AdvReac red - Verified 08/04/21 15:12 itchy hands clavulanic acid AdvReac red - Verified 08/04/21 15:12 [From Augmentin] itchy hands Home Meds Home Medications Medication Instructions Recorded Confirmed multivitamin (One-A-Day Essential) 1 tab PO DAILY 06/01/19 08/04/21 warfarin 2.5 mg tablet 2.5 mg PO MOTUWETHFRSA tab 06/01/19 08/04/21 amlodipine 5 mg tablet 5 mg PO DAILY #1 tab 05/04/20 08/04/21 calcium carb 300 mg-D3 800 1 tab PO BID tab 05/04/20 08/04/21 unit-mag ox 25 mg-copy cutter 0.5 mg-rashid-Zn tablet (Caltrate + D3 Plus Minerals) insulin glargine 100 unit/mL 12 unit SUBCUT DAILY ml 05/04/20 08/04/21 subcutaneous solution metformin 1,000 mg tablet 1,000 mg PO BID #180 tab 05/04/20 08/04/21 sotalol 80 mg tablet 80 mg PO Q12 tab 05/04/20 08/04/21 albuterol sulfate 90 mcg/actuation 2 inh INHALATION Q4 PRN 08/04/21 08/04/21 aerosol inhaler aspirin 81 mg chewable tablet 81 mg PO DAILY 08/04/21 08/04/21 (Aspirin Childrens) glycopyrrolate 9 mcg-formoterol 2 puff INHALATION BID 08/04/21 08/04/21 4.8 mcg HFA aerosol inhaler (Bevespi Aerosphere) ipratropium 0.5 mg-albuterol 3 mg 3 ml INHALATION Q4 PRN 08/04/21 08/04/21 (2.5 mg base)/3 mL nebulization soln lisinopril 20 1 tab PO DAILY 08/04/21 08/04/21 mg-hydrochlorothiazide 25 mg tablet prednisone 20 mg tablet See Rx Instructions .ROUTE .COMPLEX 08/04/21 08/04/21 warfarin 2.5 mg tablet 5 mg PO ORNELAS 08/04/21 08/04/21 Previous Rx's Medication Instructions Recorded Oxygen Home #1 ea 06/01/19 nebulizers #1 ea 06/10/19 Portable Oxygen #1 ea 05/04/20 Results & Data (ED) Vital Signs Vital Signs - 24 hr 08/04/21 14:47 08/04/21 14:49 08/04/21 14:50 Temperature 37.3 C Temperature Source Axillary Pulse Rate 96 H 95 H 99 H Pulse Rate from SpO2 Sensor 97 H 99 H Respiratory Rate 18 24 35 H Respiratory Effort / Characteristics Respiratory Depth Respiratory Pattern Blood Pressure 111/56 L Blood Pressure Mean 74 Pulse Oximetry 100 97 99 Oxygen Delivery Method BiPAP BiPAP BiPAP Oxygen Flow Rate Fraction of Inspired Oxygen 35 SaO2/FiO2 Ratio 277 Sepsis Recent Fever Within 48 Hours No Sepsis New/Unexplained Change in Mental Status No Sepsis Action Taken by Nursing No Action Required 08/04/21 14:58 08/04/21 15:00 08/04/21 15:02 Temperature Temperature Source Pulse Rate 91 H 94 H Pulse Rate from SpO2 Sensor 90 Respiratory Rate 30 H 33 H Respiratory Effort / Characteristics Spontaneous Labored Short of Breath Respiratory Depth Normal Respiratory Pattern Regular Blood Pressure Blood Pressure Mean Pulse Oximetry 96 97 97 Oxygen Delivery Method BiPAP BiPAP BiPAP Oxygen Flow Rate 97 Fraction of Inspired Oxygen 35 35 SaO2/FiO2 Ratio Sepsis Recent Fever Within 48 Hours Sepsis New/Unexplained Change in Mental Status Sepsis Action Taken by Nursing 08/04/21 15:11 08/04/21 15:20 08/04/21 15:30 Temperature Temperature Source Pulse Rate 93 H 92 H 88 Pulse Rate from SpO2 Sensor 93 H 86 87 Respiratory Rate 36 H 20 26 H Respiratory Effort / Characteristics Respiratory Depth Respiratory Pattern Blood Pressure 136/62 Blood Pressure Mean 86 Pulse Oximetry 95 95 96 Oxygen Delivery Method BiPAP BiPAP BiPAP Oxygen Flow Rate Fraction of Inspired Oxygen SaO2/FiO2 Ratio Sepsis Recent Fever Within 48 Hours Sepsis New/Unexplained Change in Mental Status Sepsis Action Taken by Nursing 08/04/21 15:40 08/04/21 15:50 08/04/21 16:00 Temperature Temperature Source Pulse Rate 81 82 87 Pulse Rate from SpO2 Sensor 82 82 88 Respiratory Rate 34 H 31 H 33 H Respiratory Effort / Characteristics Respiratory Depth Respiratory Pattern Blood Pressure 124/61 Blood Pressure Mean 82 Pulse Oximetry 96 95 95 Oxygen Delivery Method BiPAP BiPAP BiPAP Oxygen Flow Rate Fraction of Inspired Oxygen SaO2/FiO2 Ratio Sepsis Recent Fever Within 48 Hours Sepsis New/Unexplained Change in Mental Status Sepsis Action Taken by Nursing 08/04/21 16:10 08/04/21 16:20 08/04/21 16:30 Temperature Temperature Source Pulse Rate 87 80 84 Pulse Rate from SpO2 Sensor 89 81 88 Respiratory Rate 23 28 H 26 H Respiratory Effort / Characteristics Respiratory Depth Respiratory Pattern Blood Pressure 124/56 L Blood Pressure Mean 78 Pulse Oximetry 94 95 95 Oxygen Delivery Method BiPAP BiPAP BiPAP Oxygen Flow Rate Fraction of Inspired Oxygen SaO2/FiO2 Ratio Sepsis Recent Fever Within 48 Hours Sepsis New/Unexplained Change in Mental Status Sepsis Action Taken by Nursing 08/04/21 16:40 08/04/21 16:50 08/04/21 17:00 Temperature Temperature Source Pulse Rate 87 99 H Pulse Rate from SpO2 Sensor 89 97 H 98 H Respiratory Rate 26 H 38 H Respiratory Effort / Characteristics Respiratory Depth Respiratory Pattern Blood Pressure 141/72 H Blood Pressure Mean 95 Pulse Oximetry 97 98 98 Oxygen Delivery Method BiPAP BiPAP BiPAP Oxygen Flow Rate Fraction of Inspired Oxygen SaO2/FiO2 Ratio Sepsis Recent Fever Within 48 Hours Sepsis New/Unexplained Change in Mental Status Sepsis Action Taken by Nursing Laboratory Data Result diagrams: 08/04/21 14:50 08/04/21 14:50 Lab Results 08/04/21 08/04/21 08/04/21 Range/Units 14:50 14:50 14:50 WBC 14.13 H (4.8-10.8) K/uL RBC 4.53 (4.2-5.4) M/uL Hgb 11.9 L (12.0-16.0) g/dL Hct 37.4 (37-47) % MCV 82.6 (80-100) fL MCH 26.3 (25-34) pg MCHC 31.8 L (32-36) g/dL RDW Std Deviation 45.4 (36.4-46.3) fL RDW Coeff of Derek 14.9 H (11.5-14.5) % Plt Count 507 H (130-400) K/uL MPV 10.4 (7.4-10.4) fL Immature Gran % (Auto) 0.2 % Neut % (Auto) 77.2 % Lymph % (Auto) 14.0 % [place] % (Auto) 7.2 % Eos % (Auto) 1.2 % Baso % (Auto) 0.2 % Neut # (Auto) 10.90 H (1.4-6.5) K/uL Lymph # (Auto) 1.98 (1.2-3.4) K/uL [place] # (Auto) 1.02 H (0.11-0.59) K/uL Eos # (Auto) 0.17 (0-0.5) K/uL Baso # (Auto) 0.03 (0-0.2) K/uL Immature Gran # (Auto) 0.03 H (0.00-0.02) K/uL PT 41.3 H (9.0-12.0) Seconds INR 4.6 H (0.9-1.1) APTT 40.3 H (21.0-31.0) Seconds PTT Ratio 1.5 VBG pH (7.36-7.41) VBG pCO2 (38-50) mmHg VBG pO2 mmHg VBG HCO3 mmol/L VBG O2 Saturation % VBG Base Excess mEq/L Barometric Pressure mm/Hg Sodium 129 L (136-145) mmol/L Potassium 3.8 (3.5-5.1) mmol/L Chloride 89 L (98-107) mmol/L Carbon Dioxide 36 H (21-32) mmol/L Anion Gap 4.0 (3-11) BUN 30 H (7-18) mg/dl Creatinine 0.66 (0.6-1.2) mg/dl Est Cr Clr Drug Dosing 52.8 ml/min Est GFR ( Amer) 95.3 ml/min Est GFR (Non-Af Amer) 82.3 ml/min BUN/Creatinine Ratio 45.2 H (10-20) Glucose 127 H (70-99) mg/dl Calcium 10.4 H (8.5-10.1) mg/dl Magnesium 2.0 (1.8-2.4) mg/dl Total Bilirubin 0.6 (0.2-1) mg/dl AST 17 (15-37) U/L ALT 22 (12-78) Alkaline Phosphatase 102 (45-117) U/L Troponin I < 0.015 (0-0.045) ng/ml NT-Pro-B Natriuret Pep 1108 (0-1800) pg/ml Total Protein 8.1 (6.4-8.2) gm/dl Albumin 2.7 L (3.4-5.0) gm/dl Globulin 5.4 H (2.5-4.0) gm/dl Albumin/Globulin Ratio 0.5 L (0.9-2) Procalcitonin (0-0.5) ng/ml Urine Color Urine Appearance (Clear) Urine pH (4.5-7.5) Ur Specific [place] (1.000-1.030) Urine Protein (Negative) Urine Glucose (UA) (Negative) Urine Ketones (Negative) Urine Blood (Negative) Urine Nitrite (Negative) Urine Bilirubin (Negative) Urine Urobilinogen (Negative) Ur Leukocyte Esterase (Negative) Urine WBC (Auto) (0-5) /hpf Urine RBC (Auto) (0-4) /hpf U Hyaline Cast (Auto) (0-5) /lpf U Epithel Cells (Auto) (0-5) /lpf Urine Bacteria (Auto) (Negative) SARS-CoV-2 (PCR) (Negative) Influenza Type A (PCR) (Neg) Influenza Type B (PCR) (Neg) RSV (RT-PCR) (Neg) 08/04/21 08/04/21 08/04/21 Range/Units 14:50 15:01 15:06 WBC (4.8-10.8) K/uL RBC (4.2-5.4) M/uL Hgb (12.0-16.0) g/dL Hct (37-47) % MCV (80-100) fL MCH (25-34) pg MCHC (32-36) g/dL RDW Std Deviation (36.4-46.3) fL RDW Coeff of Derek (11.5-14.5) % Plt Count (130-400) K/uL MPV (7.4-10.4) fL Immature Gran % (Auto) % Neut % (Auto) % Lymph % (Auto) % [place] % (Auto) % Eos % (Auto) % Baso % (Auto) % Neut # (Auto) (1.4-6.5) K/uL Lymph # (Auto) (1.2-3.4) K/uL [place] # (Auto) (0.11-0.59) K/uL Eos # (Auto) (0-0.5) K/uL Baso # (Auto) (0-0.2) K/uL Immature Gran # (Auto) (0.00-0.02) K/uL PT (9.0-12.0) Seconds INR (0.9-1.1) APTT (21.0-31.0) Seconds PTT Ratio VBG pH 7.46 H (7.36-7.41) VBG pCO2 51 H (38-50) mmHg VBG pO2 41 mmHg VBG HCO3 35 mmol/L VBG O2 Saturation 74.2 % VBG Base Excess 9.8 mEq/L Barometric Pressure 733.2 mm/Hg Sodium (136-145) mmol/L Potassium (3.5-5.1) mmol/L Chloride (98-107) mmol/L Carbon Dioxide (21-32) mmol/L Anion Gap (3-11) BUN (7-18) mg/dl Creatinine (0.6-1.2) mg/dl Est Cr Clr Drug Dosing ml/min Est GFR ( Amer) ml/min Est GFR (Non-Af Amer) ml/min BUN/Creatinine Ratio (10-20) Glucose (70-99) mg/dl Calcium (8.5-10.1) mg/dl Magnesium (1.8-2.4) mg/dl Total Bilirubin (0.2-1) mg/dl AST (15-37) U/L ALT (12-78) Alkaline Phosphatase (45-117) U/L Troponin I (0-0.045) ng/ml NT-Pro-B Natriuret Pep (0-1800) pg/ml Total Protein (6.4-8.2) gm/dl Albumin (3.4-5.0) gm/dl Globulin (2.5-4.0) gm/dl Albumin/Globulin Ratio (0.9-2) Procalcitonin 0.13 (0-0.5) ng/ml Urine Color Urine Appearance (Clear) Urine pH (4.5-7.5) Ur Specific [place] (1.000-1.030) Urine Protein (Negative) Urine Glucose (UA) (Negative) Urine Ketones (Negative) Urine Blood (Negative) Urine Nitrite (Negative) Urine Bilirubin (Negative) Urine Urobilinogen (Negative) Ur Leukocyte Esterase (Negative) Urine WBC (Auto) (0-5) /hpf Urine RBC (Auto) (0-4) /hpf U Hyaline Cast (Auto) (0-5) /lpf U Epithel Cells (Auto) (0-5) /lpf Urine Bacteria (Auto) (Negative) SARS-CoV-2 (PCR) NEGATIVE (Negative) Influenza Type A (PCR) Negative (Neg) Influenza Type B (PCR) Negative (Neg) RSV (RT-PCR) Negative (Neg) 08/04/21 Range/Units 16:57 WBC (4.8-10.8) K/uL RBC (4.2-5.4) M/uL Hgb (12.0-16.0) g/dL Hct (37-47) % MCV (80-100) fL MCH (25-34) pg MCHC (32-36) g/dL RDW Std Deviation (36.4-46.3) fL RDW Coeff of Derek (11.5-14.5) % Plt Count (130-400) K/uL MPV (7.4-10.4) fL Immature Gran % (Auto) % Neut % (Auto) % Lymph % (Auto) % [place] % (Auto) % Eos % (Auto) % Baso % (Auto) % Neut # (Auto) (1.4-6.5) K/uL Lymph # (Auto) (1.2-3.4) K/uL [place] # (Auto) (0.11-0.59) K/uL Eos # (Auto) (0-0.5) K/uL Baso # (Auto) (0-0.2) K/uL Immature Gran # (Auto) (0.00-0.02) K/uL PT (9.0-12.0) Seconds INR (0.9-1.1) APTT (21.0-31.0) Seconds PTT Ratio VBG pH (7.36-7.41) VBG pCO2 (38-50) mmHg VBG pO2 mmHg VBG HCO3 mmol/L VBG O2 Saturation % VBG Base Excess mEq/L Barometric Pressure mm/Hg Sodium (136-145) mmol/L Potassium (3.5-5.1) mmol/L Chloride (98-107) mmol/L Carbon Dioxide (21-32) mmol/L Anion Gap (3-11) BUN (7-18) mg/dl Creatinine (0.6-1.2) mg/dl Est Cr Clr Drug Dosing ml/min Est GFR ( Amer) ml/min Est GFR (Non-Af Amer) ml/min BUN/Creatinine Ratio (10-20) Glucose (70-99) mg/dl Calcium (8.5-10.1) mg/dl Magnesium (1.8-2.4) mg/dl Total Bilirubin (0.2-1) mg/dl AST (15-37) U/L ALT (12-78) Alkaline Phosphatase (45-117) U/L Troponin I (0-0.045) ng/ml NT-Pro-B Natriuret Pep (0-1800) pg/ml Total Protein (6.4-8.2) gm/dl Albumin (3.4-5.0) gm/dl Globulin (2.5-4.0) gm/dl Albumin/Globulin Ratio (0.9-2) Procalcitonin (0-0.5) ng/ml Urine Color Dark Yellow Urine Appearance Clear (Clear) Urine pH 5.0 (4.5-7.5) Ur Specific [place] 1.020 (1.000-1.030) Urine Protein 1+ H (Negative) Urine Glucose (UA) Negative (Negative) Urine Ketones 2+ H (Negative) Urine Blood 1+ H (Negative) Urine Nitrite Positive A (Negative) Urine Bilirubin Negative (Negative) Urine Urobilinogen Negative (Negative) Ur Leukocyte Esterase 2+ H (Negative) Urine WBC (Auto) >30 H (0-5) /hpf Urine RBC (Auto) 0-4 (0-4) /hpf U Hyaline Cast (Auto) 5-10 H (0-5) /lpf U Epithel Cells (Auto) 5-10 H (0-5) /lpf Urine Bacteria (Auto) 4+ H (Negative) SARS-CoV-2 (PCR) (Negative) Influenza Type A (PCR) (Neg) Influenza Type B (PCR) (Neg) RSV (RT-PCR) (Neg) Administered Medications Discontinued Medications Doxycycline Hyclate (Doxycycline Hyclate 100 Mg Cap) 100 mg PO NOW STA Stop: 08/04/21 16:31 Last Admin: 08/04/21 16:43 Dose: 100 mg Documented by: [id number] Cefepime HCl (Maxipime) 2,000 mg in 20 mls @ 5 mls/min IV NOW STA; Protocol Stop: 08/04/21 16:33 Last Admin: 08/04/21 16:42 Dose: 5 mls/min Documented by: [id number] Imaging Data Radiologist's Impression: Chest X-Ray 08/04/21 14:48 XR chest 1V portable CLINICAL HISTORY: Dyspnea, COPD, Bipap COMPARISON STUDY: Chest radiograph June 01, 2019. Chest CT November 06, 2017. FINDINGS: There is no pneumothorax or pleural effusion. Cardiomediastinal silhouette is stable. Emphysema is better depicted on prior CT. There are possible mild bilateral lower lung opacities. This could be artifactual. Subtle interstitial thickening has increased. IMPRESSION: Subtle interstitial thickening and possible mild bibasilar opacities. An infectious process superimposed upon emphysema cannot be excluded. Radiographic follow-up is recommended. ACT 112: Negative or not required by law. Electronically signed by: Melchor Tafoya M.D. 08/04/2021 3:12 PM Discharge Plan Visit Data Chief Complaint: Respiratory Distress ED Provider: Jake Richmond Discharge Problem: Respiratory failure with hypoxia, COPD (chronic obstructive pulmonary disease), Community acquired pneumonia Patient Disposition: Being Evaluated by Hospitalist Forms Stand Alone Forms: [facility] [employer] Prescriptions Prescriptions: No Action warfarin 2.5 mg tablet 2.5 mg PO MOTUWETHFRSA RF: 0 multivitamin [One-A-Day Essential] tablet 1 tab PO DAILY RF: 0 (DME) Oxygen Home Liters Per Minute See Dose Instructions .ROUTE .MEDSUPPLY Qty: 1 RF: 0 amlodipine 5 mg tablet 5 mg PO DAILY Qty: 1 RF: 0 insulin glargine 100 unit/mL solution 12 unit subcut DAILY RF: 0 metformin 1,000 mg tablet 1,000 mg PO BID Qty: 180 RF: 0 sotalol 80 mg tablet 80 mg PO Q12 RF: 0 (DME) nebulizers misc See Dose Instructions .ROUTE .MEDSUPPLY Qty: 1 RF: 0 Caltrate + D3 Plus Minerals 300 mg-800 unit -25 mg-0.5 mg tablet 1 tab PO BID RF: 0 (DME) Portable Oxygen Misc See Rx Instructions .ROUTE .MEDSUPPLY Qty: 1 RF: 0 aspirin [Aspirin Childrens] 81 mg Tablet,Chewable 81 mg PO DAILY RF: 0 lisinopril-hydrochlorothiazide 20-25 mg tablet 1 tab PO DAILY RF: 0 Bevespi Aerosphere 9-4.8 mcg HFA aerosol inhaler 2 puff INHALATION BID RF: 0 ipratropium-albuterol [DuoNeb] 0.5 mg-3 mg(2.5 mg base)/3 mL Solution For Nebulization 3 ml INHALATION Q4 PRN (Reason: cough,sob,wheezing) RF: 0 albuterol sulfate 90 mcg/actuation HFA aerosol inhaler 2 inh inhalation Q4 PRN (Reason: cough,sob,wheezing) RF: 0 prednisone 20 mg tablet See Rx Instructions .ROUTE .COMPLEX RF: 0 warfarin 2.5 mg Tablet 5 mg PO ORNELAS RF: 0 Referrals Referrals: Radha Beck, DO [Primary Care Provider] -
[2021-08-04 15:01] LABS: Basophils # (auto) 0.03 K/uL (0-0.2); Basophils % (auto) 0.2 %; Eosinophils # (auto) 0.17 K/uL (0-0.5); Eosinophils % (auto) 1.2 %; Hematocrit (blood only) 37.4 % (37-47); Hemoglobin 11.9 g/dL (12.0-16.0); Immature Granulocytes # (auto) 0.03 K/uL (0.00-0.02); Immature Granulocytes % (auto) 0.2 %; Lymphocytes # (auto) 1.98 K/uL (1.2-3.4); Mean Corpuscular Hemoglobin 26.3 pg (25-34); Mean Corpuscular Hgb Conc 31.8 g/dL (32-36); Mean Corpuscular Volume 82.6 fL (80-100); Mean Platelet Volume 10.4 fL (7.4-10.4); Monocytes # (auto) 1.02 K/uL (0.11-0.59); Monocytes % (auto) 7.2 %; Neutrophils % (auto) 77.2 %; Platelet Count 507 K/uL (130-400); RDW Coefficient of Variation 14.9 % (11.5-14.5); RDW Standard Deviation 45.4 fL (36.4-46.3); Red Blood Count 4.53 M/uL (4.2-5.4); White Blood Count 14.13 K/uL (4.8-10.8)
--- NOTE | 2021-08-04 15:13 | XRay Report ---
XR chest 1V portable CLINICAL HISTORY: Dyspnea, COPD, Bipap COMPARISON STUDY: Chest radiograph June 01, 2019. Chest CT November 06, 2017. FINDINGS: There is no pneumothorax or pleural effusion. Cardiomediastinal silhouette is stable. Emphy sema is better depicted on prior CT. There are possible mild bilateral lower lung opacities. This cou ld be artifactual. Subtle interstitial thickening has increased. IMPRESSION: Subtle interstitial thickening and possible mild bibasilar opacities. An infectious proc ess superimposed upon emphysema cannot be excluded. Radiographic follow-up is recommended. ACT 112: Negative or not required by law. Electronically signed by: Melchor Tafoya M.D. 08/04/2021 3:12 PM
[2021-08-04 15:19] LABS: INR 4.6 (0.9-1.1); Partial Thromboplastin Ratio 1.5; Partial Thromboplastin Time 40.3 Seconds (21.0-31.0); Prothrombin Time 41.3 Seconds (9.0-12.0)
[2021-08-04 15:19] LABS: Base Excess VBG 9.8 mEq/L; Oxygen Saturation VBG 74.2 %; pH VBG 7.46 (7.36-7.41)
[2021-08-04 15:23] LABS: Alanine Aminotransferase 22 (12-78); Albumin Level 2.7 gm/dl (3.4-5.0); Aspartate Aminotransferase 17 U/L (15-37); BUN Creatinine Ratio 45.2 (10-20); Blood Urea Nitrogen 30 mg/dl (7-18); Calcium 10.4 mg/dl (8.5-10.1); Carbon Dioxide 36 mmol/L (21-32); Chloride 89 mmol/L (98-107); Creatinine Clr Calc Pharmacy 52.8 ml/min; Est GFR (African American) 95.3 ml/min; Est GFR (Non-African American) 82.3 ml/min; Glucose 127 mg/dl (70-99); Potassium 3.8 mmol/L (3.5-5.1); Sodium 129 mmol/L (136-145)
[2021-08-04 15:28] LABS: Albumin Globulin Ratio 0.5 (0.9-2); Alkaline Phosphatase 102 U/L (45-117); Bilirubin,Total 0.6 mg/dl (0.2-1); Globulin 5.4 gm/dl (2.5-4.0); Total Protein 8.1 gm/dl (6.4-8.2); Troponin I < 0.015 ng/ml (0-0.045)
[2021-08-04 16:15] LABS: Influenza A virus by PCR Negative (Neg); Influenza B virus by PCR Negative (Neg); RSV by PCR Negative (Neg)
[2021-08-04] MEDS ORDERED: CEFEPIME 2,000 MG/20 ML VIAL IV STA (16:30)
[2021-08-04] MEDS ORDERED: DOXYCYCLINE HYCLATE 100 MG CAP PO STA (16:30)
--- NOTE | 2021-08-04 16:46 | History & Physical Report ---
Date of Service August 04, 2021 Assessment & Plan (1) Sepsis: (2) Acute and chronic respiratory failure with hypoxia: (3) COPD exacerbation: (4) Pneumonia: Plan: This is a 81-year-old female who has significant past medical history of chronic hypoxemic respiratory failure on 3.5 L of oxygen secondary to COPD and emphysema, insulin-dependent T2DM, PAF anticoagulated on warfarin and rhythm controlled with sotalol, HTN, pulmonary hypertension, history of left breast CA who presents to ED secondary to worsening shortness of breath over the last 2 weeks. Patient meets SIRS/sepsis criteria on admission secondary to tachycardia, leukocytosis and tachypnea. Source: Likely pulmonary in setting of pneumonia and COPD exacerbation Urine culture ordered Obtain blood culture Received IV cefepime and oral doxy in ED, patient with history of colonization of Pseudomonas and Aspergillus Sepsis Acute on chronic respiratory failure with hypoxia COPD exacerbation Pneumonia Admit to PCU Currently weaned off BiPAP to 5 L Respiratory to follow closely and reintroduce BiPAP if needed IV cefepime and oral doxy, obtain MRSA swab IV methylprednisolone 20 mg every 8 hours Sputum culture Aggressive pulmonary toilet with nebs, flutter valve, spirometer Mucinex Consult pulmonology -patient follows with Dr. Ramsey New LBBB EKG compared to prior 04/2020 with new evidence today of LBBB Could possibly be secondary to tachycardia induced Cycle troponins, obtain echo Consult cardiology - Dr. Clement aware Insulin-dependent T2DM Last A1c 7.2 on 06/29/2021 Lantus/NovoLog per protocol Hold Metformin Consult glycemic pharmacy in setting of steroid use Paroxysmal atrial fibrillation Supratherapeutic INR Continue sotalol Hold warfarin Daily INR HTN Continue amlodipine Hold lisinopril/hydrochlorothiazide in setting of hyponatremia and mild dehydration Hypercalcemia Corrected calcium 11.7 Hold calcium supplement May be in setting of dehydration, monitor DVT prophylaxis: none in setting of supratherapeutic INR Dispo: PCU PCP: Kiran FULL CODE Patient was seen and examined in collaboration with Dr. Guardado, please see addendum The chart was completed utilizing [employer] Speech voice recognition software. Grammatical errors, random word insertions, pronoun errors, and incomplete sentences are an occasional consequence of this system due to software limitations, ambient noise, and hardware issues. Any formal questions or concerns about the content, text, or information contained within the body of this dictation should be directly addressed to the provider for clarification.. History of Present Illness Chief Complaint: SOB x 2 weeks. Primary Care Provider: Radha Beck, This is a 81-year-old female who has significant past medical history of chronic hypoxemic respiratory failure on 3.5 L of oxygen secondary to COPD and emphysema, insulin-dependent T2DM, PAF anticoagulated on warfarin and rhythm controlled with sotalol, HTN, pulmonary hypertension, history of left breast CA who presents to ED secondary to worsening shortness of breath over the last 2 weeks. Patient notes that she has been ill over the past month with increasing shortness of breath and cough. Of note she is vaccinated for influenza but is not vaccinated for COVID-19. Over the past 2 weeks she has noted increasing use of oxygen and worsening shortness of breath. She states approximately a month ago she developed an itch on her lower extremities. She then developed tooth pain. She was seen by PCP who prescribed prednisone which helped her itching. It also helped her breathing. Once she was done with prednisone her itching returned and her shortness of breath got worse. She does complain of a productive cough of purulent brown/yellow sputum, shortness of breath, wheezing, nausea and loose stool. She states she moves her bowels approximately 10 times a day. She denies ron diarrhea just describes as, "loose." She denies fever, chills, sweats, lightheadedness, dizziness, syncope, chest pain, palpitations, hemoptysis, emesis, dysuria, increased urgency or frequency with urination. In ED she was noted to be hypoxic/tacypneic on her home oxygen. EMS was summoned. She was placed on BiPAP in route and received 3 DuoNebs as well as 125 mg of Solu-Medrol. In ED patient was transitioned to BiPAP and has clinically improv ed. Chest x-ray concerning for interstitial thickening and possible basilar opacities. She does have mild elevation of WBC of 14 K. Her procalcitonin is within normal limits. Other lab abnormalities include supratherapeutic INR at 4.6, compensatory respiratory alkalosis, sodium 129, BUN 30, creatinine 0.66, calcium 10.4. Her EKG revealed normal sinus rhythm with PACs but did reveal a new left bundle branch block. Her initial troponin was 0.015. She was started on IV cefepime and oral doxy due to concern for pneumonia. Per ED provider patient does have history of Pseudomonas and Aspergillus. Allergies Allergy/AdvReac Type Severity Reaction Status Date / Time amoxicillin [From Augmentin] AdvReac red - Verified 08/04/21 15:12 itchy hands clavulanic acid AdvReac red - Verified 08/04/21 15:12 [From Augmentin] itchy hands Home Medications Medication Instructions Recorded Confirmed Type Oxygen Home #1 ea 06/01/19 08/04/21 Rx multivitamin (One-A-Day Essential) 1 tab PO DAILY 06/01/19 08/04/21 History warfarin 2.5 mg tablet 2.5 mg PO MOTUWETHFRSA tab 06/01/19 08/04/21 History nebulizers #1 ea 06/10/19 08/04/21 Rx Portable Oxygen #1 ea 05/04/20 08/04/21 Rx amlodipine 5 mg tablet 5 mg PO DAILY #1 tab 05/04/20 08/04/21 History calcium carb 300 mg-D3 800 1 tab PO BID tab 05/04/20 08/04/21 History unit-mag ox 25 mg-copper flotation operator 0.5 mg-rashid-Zn tablet (Caltrate + D3 Plus Minerals) insulin glargine 100 unit/mL 12 unit SUBCUT DAILY ml 05/04/20 08/04/21 History subcutaneous solution metformin 1,000 mg tablet 1,000 mg PO BID #180 tab 05/04/20 08/04/21 History sotalol 80 mg tablet 80 mg PO Q12 tab 05/04/20 08/04/21 History albuterol sulfate 90 mcg/actuation 2 inh INHALATION Q4 PRN 08/04/21 08/04/21 History aerosol inhaler aspirin 81 mg chewable tablet 81 mg PO DAILY 08/04/21 08/04/21 History (Aspirin Childrens) glycopyrrolate 9 mcg-formoterol 2 puff INHALATION BID 08/04/21 08/04/21 History 4.8 mcg HFA aerosol inhaler (Bevespi Aerosphere) ipratropium 0.5 mg-albuterol 3 mg 3 ml INHALATION Q4 PRN 08/04/21 08/04/21 History (2.5 mg base)/3 mL nebulization soln lisinopril 20 1 tab PO DAILY 08/04/21 08/04/21 History mg-hydrochlorothiazide 25 mg tablet prednisone 20 mg tablet See Rx Instructions .ROUTE .COMPLEX 08/04/21 08/04/21 History warfarin 2.5 mg tablet 5 mg PO ORNELAS 08/04/21 08/04/21 History Past Med/Surg History Medical History CHF (congestive heart failure) (12/07/13) Chronic respiratory failure with hypoxia COPD (chronic obstructive pulmonary disease) COPD exacerbation (12/07/13) DCIS (ductal carcinoma in situ) of breast Diabetes Hypertension Insulin dependent diabetes mellitus Paroxysmal atrial fibrillation Respiratory failure with hypoxia Surgical History History of carpal tunnel release History of dental surgery History of partial mastectomy History of tubal ligation Family History Mother Diabetes Other Breast cancer Social History Smoking Status: Former smoker packs per day: 0.5; Years Smoked: 20; Hx Alcohol Use: No Hx Substance Use: No Preferred Language: Armenian Communication Ability: Effective marital status: / Current Living Situation: Alone Feels Safe at Home: Yes Review of Systems Review of Systems: All systems reviewed & are unremarkable except as noted in HPI & below Physical Exam Physical Exam: Constitutional: Petite, Thin, F, Tachypneic, +BIPAP, dyspneic with conversation, vitals as above, NAD, sitting up in bed, pleasant Head: Normocephalic, Atraumatic Eyes: PERRL, conjunctivae normal, anicteric sclerae ENMT: external ear and nose normal, oropharynx normal Neck: trachea midline, no thyromegaly normal visual inspection Respiratory: increased respiratory effort, decreased BS at bases, + rhonchi RUL, no wheeze or rale. + accessory muscle use Cardiovascular: tachycardic rate, reg rhythm, no murmur, no edema Vessels: no JVD or carotid bruit Chest: normal inspection of chest Abdomen: normal bowel sounds, soft, nontender, no hepatosplenomegaly Musculoskeletal: no cyanosis or clubbing, extremities motor strength 5/5 Skin: no rashes, warm and dry normal turgor Neurologic: PERRL, EOMI, accommodation nl, no face palsy, no dysarthria CN's II-XI intact bilaterally and moves all extremities Psychiatric: A+Ox3, euthymic affect Lymphatic: no cervical or axillary lymphadenopathy : deferred Results & Data Results & Data ([facility]) Vital Signs (Past 12 Hours) Vital Signs Temp Pulse Resp BP Pulse Ox 08/04/21 15:02 97 08/04/21 14:58 91 H 30 H 96 08/04/21 14:49 37.3 C 95 H 24 111/56 L 97 Diagnostic Findings Chest X-Ray 08/04/21 14:48 XR chest 1V portable CLINICAL HISTORY: Dyspnea, COPD, Bipap COMPARISON STUDY: Chest radiograph June 01, 2019. Chest CT November 06, 2017. FINDINGS: There is no pneumothorax or pleural effusion. Cardiomediastinal silhouette is stable. Emphysema is better depicted on prior CT. There are possible mild bilateral lower lung opacities. This could be artifactual. Subtle interstitial thickening has increased. IMPRESSION: Subtle interstitial thickening and possible mild bibasilar opacities. An infectious process superimposed upon emphysema cannot be excluded. Radiographic follow-up is recommended. ACT 112: Negative or not required by law. Electronically signed by: Melchor Tafoya M.D. 08/04/2021 3:12 PM Medications Administered Medication List Discontinued Medications Doxycycline Hyclate (Doxycycline Hyclate 100 Mg Cap) 100 mg PO NOW STA Stop: 08/04/21 16:31 Last Admin: 08/04/21 16:43 Dose: 100 mg Documented by: [id number] Cefepime HCl (Maxipime) 2,000 mg in 20 mls @ 5 mls/min IV NOW STA; Protocol Stop: 08/04/21 16:33 Last Admin: 08/04/21 16:42 Dose: 5 mls/min Documented by: [id number] ECG Rate (beats per minute): 93 Rhythm: normal sinus Findings: + LBBB, + PAC and + prolonged QT Additional Comments: LBBB new COVID-19 Results Results COVID-19 Adm Lab Results: RBC 4.53 M/uL (4.2-5.4) 08/04/21 WBC 14.13 K/uL (4.8-10.8) H 08/04/21 Hgb 11.9 g/dL (12.0-16.0) L 08/04/21 Hct 37.4 % (37-47) 08/04/21 Plt Count 507 K/uL (130-400) H 08/04/21 Neutrophils (%) (Auto) 77.2 % 08/04/21 Lymphocytes (%) (Auto) 14.0 % 08/04/21 Monocytes # (Auto) 1.02 K/uL (0.11-0.59) H 08/04/21 Eosinophils # (Auto) 0.17 K/uL (0-0.5) 08/04/21 Immature Granulocyte % (Auto) 0.2 % 08/04/21 Neutrophils # (Auto) 10.90 K/uL (1.4-6.5) H 08/04/21 Lymphocytes # (Auto) 1.98 K/uL (1.2-3.4) 08/04/21 Monocytes # (Auto) 1.02 K/uL (0.11-0.59) H 08/04/21 Eosinophils # (Auto) 0.17 K/uL (0-0.5) 08/04/21 Basophils # (Auto) 0.03 K/uL (0-0.2) 08/04/21 Immature Granulocyte # (Auto) 0.03 K/uL (0.00-0.02) H 08/04/21 Na 129 mmol/L (136-145) L 08/04/21 K 3.8 mmol/L (3.5-5.1) 08/04/21 Cl 89 mmol/L (98-107) L 08/04/21 CO2 36 mmol/L (21-32) H 08/04/21 Anion Gap 4.0 (3-11) 08/04/21 BUN 30 mg/dl (7-18) H 08/04/21 Creatinine 0.66 mg/dl (0.6-1.2) 08/04/21 BUN/Creatinine Ratio 45.2 (10-20) H 08/04/21 Glucose Level 127 mg/dl (70-99) H 08/04/21 Ca 10.4 mg/dl (8.5-10.1) H 08/04/21 Total Bilirubin 0.6 mg/dl (0.2-1) 08/04/21 AST/SGOT 17 U/L (15-37) 08/04/21 ALT/SGPT 22 (12-78) 08/04/21 Alkaline Phosphatase 102 U/L (45-117) 08/04/21 Total Protein 8.1 gm/dl (6.4-8.2) 08/04/21 Albumin 2.7 gm/dl (3.4-5.0) L 08/04/21 Globulin 5.4 gm/dl (2.5-4.0) H 08/04/21 Albumin/Globulin Ratio 0.5 (0.9-2) L 08/04/21 Troponin I < 0.015 ng/ml (0-0.045) 08/04/21 YV-Wpt-Z-Type Natriuretic Pep 1108 pg/ml (0-1800) 08/04/21 Procalcitonin 0.13 ng/ml (0-0.5) 08/04/21 PTT 40.3 Seconds (21.0-31.0) H 08/04/21 INR 4.6 (0.9-1.1) H 08/04/21 COVID-19 PCR NEGATIVE (Negative) 08/04/21 Influenza Virus Type A (PCR) Negative (Neg) 08/04/21 Influenza Virus Type B (PCR) Negative (Neg) 08/04/21 Chest X-Ray 08/04/21 Code Status & VTE Plan Code Status FULL CODE VTE Prophylaxis Plan VTE Prophylaxis will be ordered: No Supervising Physician Co-Signing Physician Notes History and physical exam performed by me as detailed by Dunia Romero PA-C History notable for 81-year-old woman with chronic hypoxic respiratory failure due to COPD, DM type II, proximal A. fib on warfarin and sotalol, pulmonary hypertension who presented with worsening shortness of breath over the past 2 weeks associated with productive cough. Physical exam notable for elderly patient in respiratory distress with tachypnea on BiPAP, decreased breath sounds, rhonchi in the right upper lung zone posteriorly. Labs notable for WBC of 14, hemoglobin of 11.9, INR 4.6, sodium of 129, potassium of 10.4 [corrected for hypo-albumin at 11.4] Chest x-ray showed subtle interstitial thickening and possible mild bibasilar opacities. COPD exacerbation Possible pneumonia Hyponatremia Covid test is negative. Continue Solu-Medrol Continue nebs We will continue cefepime and doxy due to history of Pseudomonas. Continue BiPAP therapy and acute break as needed. Appreciate pulmonary evaluation. Patient appears to have new LBBB on EKG. Trend troponin. Appreciate cardiology evaluation and possible echo Stop home calcium supplement in view of hypercalcemia Hold diuretics. Get serum osm, uosm, Jeri Monitor sodium levels Agree with other plans as detailed by Dunia Romero PA-C
[2021-08-04 17:16] LABS: NT Pro B Type Natriuretic Pept 1108 pg/ml (0-1800)
[2021-08-04] MEDS ORDERED: CONSULT PHARMACY STA (17:32)
[2021-08-04 17:37] LABS: Appearance Urine Clear (Clear); Bacteria Urine Automated 4+ (Negative); Bilirubin Urine Negative (Negative); Blood Urine 1+ (Negative); Color Urine Dark Yellow; Glucose Urine UA Negative (Negative); Ketones Urine 2+ (Negative); Leukocyte Esterase Urine 2+ (Negative); Nitrite Urine Positive (Negative); Protein Urine 1+ (Negative); RBC Urine Automated 0-4 /hpf (0-4); Urobilinogen Urine Negative (Negative); WBC Urine Automated >30 /hpf (0-5)
[2021-08-04 19:24] LABS: Chloride Random Urine 69 mmol/L; Sodium Random Urine 36 mmol/L
[2021-08-04] MEDS ORDERED: PHARMACY GLYCEMIC MGMT CONSULT PRN (20:00)
[2021-08-04] MEDS ORDERED: CARBOHYDRATES FOR HYPOGLYCEMIA PO PRN (20:00)
[2021-08-04] MEDS ORDERED: PROMETHAZINE HCL 6.25 MG in SODIUM CHLORIDE 0.9% 50 ML IV PRN (20:00)
[2021-08-04] MEDS ORDERED: MAGNESIUM HYDROXIDE SUSP 30 ML UDC PO PRN (20:00)
[2021-08-04] MEDS ORDERED: ACETAMINOPHEN 325 MG TAB PO PRN (20:00)
[2021-08-04] MEDS ORDERED: GLUCOSE 40% GEL 15 GM TUBE PO PRN (20:00)
[2021-08-04] MEDS ORDERED: GLUCOSE 10 TABS/TUBE PO PRN (20:00)
[2021-08-04] MEDS ORDERED: ALUMINUM/MAGNESIUM SUSP 30 ML UDC PO PRN (20:00)
[2021-08-04] MEDS ORDERED: DEXTROSE 50% 50 ML SYRINGE IV PRN (20:00)
[2021-08-04] MEDS ORDERED: GLUCAGON FOR INJ 1 MG VIAL SQ PRN (20:00)
[2021-08-04] MEDS ORDERED: POLYETHYLENE (MIRALAX) 17 GM PACK PO PRN (20:00)
[2021-08-04] MEDS ORDERED: ALBUTEROL HFA 8 GM INHALER INH PRN (20:00)
[2021-08-04 20:40] LABS: BUN Creatinine Ratio 43.4 (10-20); Blood Urea Nitrogen 30 mg/dl (7-18); Calcium 9.7 mg/dl (8.5-10.1); Carbon Dioxide 29 mmol/L (21-32); Chloride 88 mmol/L (98-107); Creatinine Clr Calc Pharmacy 49.8 ml/min; Est GFR (African American) 93.5 ml/min; Est GFR (Non-African American) 80.7 ml/min; Glucose 205 mg/dl (70-99); Potassium 3.8 mmol/L (3.5-5.1); Sodium 129 mmol/L (136-145)
[2021-08-04 20:45] LABS: Troponin I < 0.015 ng/ml (0-0.045)
[2021-08-04] MEDS ORDERED: INSULIN GLARGINE SOLOSTAR 100 UNITS/ML 3 ML PEN SC SCH (21:00)
[2021-08-04] MEDS: INSULIN ASPART 100 UNITS/ML 3 ML PEN SC SCH (22:41)
[2021-08-04] MEDS: SOTALOL HCL 80 MG TAB PO SCH (22:48)
[2021-08-04] MEDS: guaiFENesin 600 MG TABCR PO SCH (22:48)
[2021-08-04] MEDS: ALBUT/IPRATROP 3MG/0.5MG NEB 3 ML VIAL INH SCH (23:38)
[2021-08-04] MEDS: DOXYCYCLINE HYCLATE 100 MG CAP PO SCH (23:57)
[2021-08-05] MEDS: INSULIN ASPART 100 UNITS/ML 3 ML PEN SC SCH ×6 (00:10→20:58)
[2021-08-05 02:14] LABS: Basophils # (auto) 0.01 K/uL (0-0.2); Basophils % (auto) 0.1 %; Eosinophils # (auto) 0.01 K/uL (0-0.5); Eosinophils % (auto) 0.1 %; Hematocrit (blood only) 33.4 % (37-47); Hemoglobin 10.7 g/dL (12.0-16.0); Immature Granulocytes # (auto) 0.01 K/uL (0.00-0.02); Immature Granulocytes % (auto) 0.1 %; Lymphocytes # (auto) 0.96 K/uL (1.2-3.4); Lymphocytes % (auto) 11.5 %; Mean Corpuscular Volume 81.1 fL (80-100); Monocytes # (auto) 0.13 K/uL (0.11-0.59); Monocytes % (auto) 1.6 %; Neutrophils % (auto) 86.6 %; Platelet Count 460 K/uL (130-400); RDW Coefficient of Variation 14.7 % (11.5-14.5); RDW Standard Deviation 43.7 fL (36.4-46.3); Red Blood Count 4.12 M/uL (4.2-5.4); White Blood Count 8.32 K/uL (4.8-10.8)
[2021-08-05 02:35] LABS: INR 4.9 (0.9-1.1); Prothrombin Time 44.2 Seconds (9.0-12.0)
[2021-08-05 02:38] LABS: Albumin Level 2.2 gm/dl (3.4-5.0); BUN Creatinine Ratio 58.8 (10-20); Calcium 9.3 mg/dl (8.5-10.1); Creatinine Clr Calc Pharmacy 56.6 ml/min; Est GFR (African American) 101.2 ml/min; Est GFR (Non-African American) 87.4 ml/min; Magnesium 1.9 mg/dl (1.8-2.4); Potassium 3.4 mmol/L (3.5-5.1)
[2021-08-05 02:41] LABS: Albumin Globulin Ratio 0.5 (0.9-2); Bilirubin,Total 0.5 mg/dl (0.2-1); Globulin 4.7 gm/dl (2.5-4.0); Total Protein 6.9 gm/dl (6.4-8.2)
[2021-08-05] MEDS: CEFEPIME 2,000 MG in SYRINGE 0 ML IV SCH ×2 (03:58→17:05)
[2021-08-05] MEDS: ALBUT/IPRATROP 3MG/0.5MG NEB 3 ML VIAL INH SCH ×4 (06:50→20:17)
[2021-08-05] MEDS: methylPREDNISolone 20 MG in SYRINGE 0 ML IV SCH ×3 (08:46→23:06)
[2021-08-05] MEDS: SOTALOL HCL 80 MG TAB PO SCH ×2 (09:26→20:55)
[2021-08-05] MEDS: DOXYCYCLINE HYCLATE 100 MG CAP PO SCH ×2 (09:26→20:56)
[2021-08-05] MEDS: amLODIPine BESYLATE 5 MG TAB PO SCH (09:26)
[2021-08-05] MEDS: ASPIRIN 81 MG CHEW PO SCH (09:26)
[2021-08-05] MEDS: guaiFENesin 600 MG TABCR PO SCH ×2 (09:27→20:56)
[2021-08-05] MEDS ORDERED: POTASSIUM CHLORIDE CRTAB 20 MEQ TABCR PO STA (11:12)
[2021-08-05] MEDS: UMECLIDINIUM/VILANTEROL 62.5/25MCG 7 PUFFS/INHALER INH SCH (12:10)
--- NOTE | 2021-08-05 12:56 | Electrocardiogram Report ---
Test Reason : Blood Pressure : / mmHG Vent. Rate : 093 BPM Atrial Rate : 093 BPM P-R Int : 132 ms QRS Dur : 136 ms QT Int : 404 ms P-R-T Axes : 045 -07 097 degrees QTc Int : 502 ms Sinus rhythm with Premature atrial complexes Left bundle branch block Abnormal ECG When compared with ECG of 11-NOV-2017 13:52, Premature atrial complexes are now Present Left bundle branch block is now Present Confirmed by Elmer Pillai ([id number]) on 08/05/2021 12:56:09 PM Referred By: Confirmed By:Elmer Pillai
--- NOTE | 2021-08-05 16:18 | Cardiology Consultation ---
Date of Consultation August 05, 2021 Assessment & Plan (1) COPD exacerbation: (2) Acute and chronic respiratory failure with hypoxia: (3) Paroxysmal atrial fibrillation: Patient well-known to the undersigned as I have followed her as an outpatient since her admission in 2013. EKG performed 08/04/2021 reveals sinus rhythm at 93 bpm with left bundle branch block and premature atrial contractions. The QRS duration is 136 ms. Compared to the previous tracing here at Located within [facility] in 2018, as well as more recent outpatient tracings, the left bundle branch block is new. Patient is undergone a transthoracic echocardiogram today with images reviewed independently. Septal motion is abnormal consistent with left bundle branch block, with normal wall motion otherwise, LVEF normal, 55 to 60%. Grade 1 diastolic dysfunction noted. The estimated pulmonary artery systolic pressure is 39 mmHg (mildly elevated). Although the left bundle branch block is now present, I do not think this is contributing significantly to her shortness of breath as her ejection fraction remains preserved. Her corrected QT interval is measured to be 502 ms on EKG, but this needs to be corrected for the duration of her QRS complex in setting of left bundle branch block, and I believe ongoing treatment with sotalol is reasonable to help maintain sinus rhythm. She is currently on cefepime, and doxycycline. Agree with avoiding any QT prolonging antibiotics. Update EKG in am. History of Present Illness Attending Physician: Marina Cooper MD History of Present Illness Salome Rodriguez is an 81-year-old female seen in cardiology consultation per the request of Dunia Romero PA-C for evaluation of new left bundle branch block. The patient has a longstanding history of severe COPD with chronic oxygen supplementation. Her cardiac history dates back to November, when she was hospitalized at [facility] with profound shortness of breath. She was diagnosed with an acute exacerbation of COPD and received treatment including antibiotics and inhaled bronchodilators and IV corticosteroids. During her hospital stay she developed atrial fibrillation with rapid ventricular response. She was placed on oral sotalol and Coumadin. In the meantime, she has been followed regularly by cardiology, without recurrence of atrial fibrillation. At the time my assessment today, she describes worsening shortness of breath for at least 1 month. She is now requiring 6 L of nasal cannula to maintain oxygen saturation in the 90s today states that at home she was getting severely dyspneic with minimal activity such as walking short distances. She looks exhausted. EKG reveals newly recognized left bundle branch block, previously noted outpatient EKG tracings. Allergies Allergy/AdvReac Type Severity Reaction Status Date / Time amoxicillin [From Augmentin] AdvReac red - Verified 08/04/21 15:12 itchy hands clavulanic acid AdvReac red - Verified 08/04/21 15:12 [From Augmentin] itchy hands Home Medications Medication Instructions Recorded Confirmed Type Oxygen Home #1 ea 06/01/19 08/04/21 Rx multivitamin (One-A-Day Essential) 1 tab PO DAILY 06/01/19 08/04/21 History warfarin 2.5 mg tablet 2.5 mg PO MOTUWETHFRSA tab 06/01/19 08/04/21 History nebulizers #1 ea 06/10/19 08/04/21 Rx Portable Oxygen #1 ea 05/04/20 08/04/21 Rx amlodipine 5 mg tablet 5 mg PO DAILY #1 tab 05/04/20 08/04/21 History calcium carb 300 mg-D3 800 1 tab PO BID tab 05/04/20 08/04/21 History unit-mag ox 25 mg-membership administrator 0.5 mg-rashid-Zn tablet (Caltrate + D3 Plus Minerals) insulin glargine 100 unit/mL 12 unit SUBCUT DAILY ml 05/04/20 08/04/21 History subcutaneous solution metformin 1,000 mg tablet 1,000 mg PO BID #180 tab 05/04/20 08/04/21 History sotalol 80 mg tablet 80 mg PO Q12 tab 05/04/20 08/04/21 History albuterol sulfate 90 mcg/actuation 2 inh INHALATION Q4 PRN 08/04/21 08/04/21 History aerosol inhaler aspirin 81 mg chewable tablet 81 mg PO DAILY 08/04/21 08/04/21 History (Aspirin Childrens) glycopyrrolate 9 mcg-formoterol 2 puff INHALATION BID 08/04/21 08/04/21 History 4.8 mcg HFA aerosol inhaler (Bevespi Aerosphere) ipratropium 0.5 mg-albuterol 3 mg 3 ml INHALATION Q4 PRN 08/04/21 08/04/21 History (2.5 mg base)/3 mL nebulization soln lisinopril 20 1 tab PO DAILY 08/04/21 08/04/21 History mg-hydrochlorothiazide 25 mg tablet prednisone 20 mg tablet See Rx Instructions .ROUTE .COMPLEX 08/04/21 08/04/21 History warfarin 2.5 mg tablet 5 mg PO ORNELAS 08/04/21 08/04/21 History Patient History Medical History CHF (congestive heart failure) (12/07/13) Chronic respiratory failure with hypoxia COPD (chronic obstructive pulmonary disease) COPD exacerbation (12/07/13) DCIS (ductal carcinoma in situ) of breast Diabetes Hypertension Insulin dependent diabetes mellitus Paroxysmal atrial fibrillation Respiratory failure with hypoxia Surgical History History of carpal tunnel release History of dental surgery History of partial mastectomy History of tubal ligation Family History (Updated 08/05/21 @ 16:21 by Gus Clement DO) Mother Diabetes Other Breast cancer Deep vein thrombosis Social History Smoking Status: Former smoker packs per day: 0.5; Years Smoked: 20; Second Hand Exposure: Yes; Do You Dip or Chew Tobacco: No; Tobacco Cessation Education Requested by Patient: No Hx Alcohol Use: No Hx Substance Use: No Preferred Language: Georgian Communication Ability: Effective 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 Beliefs That Will Affect Care: None marital status: / Current Living Situation: Detention Current Living Situation Comment: spring How many Children do You have: 2 Other Information That Helps Us Care for You: No Feels Safe at Home: Yes Safety Concerns: Feels Safe At This Time Assistive Devices: Oxygen - Continuous Review of Systems Review of Systems: All systems reviewed & are unremarkable except as noted in HPI & below Physical Exam Constitutional: + ill appearing Respiratory: Mild inspiratory crackles noted most prominently anteriorly in the upper lung [place] Cardiovascular: RRR, no murmur, no edema Gastrointestinal (Abdomen): normal bowel sounds, soft, nontender, no hepatosplenomegaly Neurologic: PERRL, EOMI, accommodation nl, no face palsy, no dysarthria Results & Data ([facility]) Vital Signs (Past 12 Hours) Vital Signs Temp Pulse Pulse Resp BP Pulse Ox 08/05/21 15:20 36.5 C 75 18 121/58 L 97 08/05/21 14:00 66 18 97 08/05/21 12:16 36.5 C 82 19 128/62 94 08/05/21 10:03 83 18 96 08/05/21 08:28 75 08/05/21 08:27 36.6 C 82 17 129/72 97 08/05/21 06:51 87 18 90
--- NOTE | 2021-08-05 16:37 | Pulmonary Consultation ---
Date of Consultation August 05, 2021 Assessment & Plan (1) Acute and chronic respiratory failure with hypoxia: (2) COPD (chronic obstructive pulmonary disease): COPD type: unspecified COPD Qualified Code(s): J44.9 - Chronic obstructive pulmonary disease, unspecified (3) Dependence on supplemental oxygen: (4) Chronic dyspnea: She has advanced COPD at baseline and is chronically on 3 to 3.5 L of act ion. She underwent bronchoscopy in 2018 and Aspergillus/Pseudomonas was isolated. She currently has a mild COPD exacerbation and is currently on IV Solu-Medrol. Recommend transitioning her to prednisone 30 mg daily starting tomorrow. Continue empiric antibiotics and consider transitioning her to p.o. Levaquin for total of 5 days. Recommend obtaining a sputum culture to evaluate for the presence of Pseudomonas. If Pseudomonas is isolated, I would recommend starting her on inhaled tobramycin for 28-day cycles. Consider the addition of noninvasive ventilation such as trilogy given her advanced COPD and her hypercapnic presentation admission. She will need an ABG in the morning to eval for hypercapnia. Maintain O2 sats of 88 to 92%. Please wean down her oxygen and she is currently 97% on 6 L of oxygen. There is no role for bronchoscopy at this time. Recommend maximizing medical therapy. Continue with ICS/LABA/LAMA inhaler. Added Arnuity. Thanks for the consult. Pulmonary will continue to follow. History of Present Illness Reason for Consultation: COPD exacerbation. Attending Physician: Marina Cooper MD History of Present Illness 81-year-old female with a past medical history of bronchiectasis, tobacco abuse, COPD, chronic hypoxemic respiratory failure abuse, breast cancer status, grade 1 diastolic dysfunction, atrial fibrillation and hypertension who presented to the hospital due to increasing shortness of breath over the past 1 to 2 weeks. She notes that she has had a cough with yellow sputum. She is concerned that she has Aspergillus pneumonia. She notes that she had a bronchoscopy in 2018 secondary to mucous plugging and is requesting another bronchoscopy. She was also found to be colonized with Pseudomonas during her hospitalization. She is chronically on 3 L of oxygen. She uses Bevespi at home as her inhaler. She has also been using her nebulizers more frequently. She becomes short of breath after walking approximately 100 feet or so. Her her FEV1 in 2018 was 50% his DLCO was 25%. She is currently on methylprednisolone 20 mg 3 times daily. She is also on cefepime 2 g twice daily and doxycycline 100 twice daily. Allergies Allergy/AdvReac Type Severity Reaction Status Date / Time amoxicillin [From Augmentin] AdvReac red - Verified 08/04/21 15:12 itchy hands clavulanic acid AdvReac red - Verified 08/04/21 15:12 [From Augmentin] itchy hands Home Medications Medication Instructions Recorded Confirmed Type Oxygen Home #1 ea 06/01/19 08/04/21 Rx multivitamin (One-A-Day Essential) 1 tab PO DAILY 06/01/19 08/04/21 History warfarin 2.5 mg tablet 2.5 mg PO MOTUWETHFRSA tab 06/01/19 08/04/21 History nebulizers #1 ea 06/10/19 08/04/21 Rx Portable Oxygen #1 ea 05/04/20 08/04/21 Rx amlodipine 5 mg tablet 5 mg PO DAILY #1 tab 05/04/20 08/04/21 History calcium carb 300 mg-D3 800 1 tab PO BID tab 05/04/20 08/04/21 History unit-mag ox 25 mg-copy cutter 0.5 mg-rashid-Zn tablet (Caltrate + D3 Plus Minerals) insulin glargine 100 unit/mL 12 unit SUBCUT DAILY ml 05/04/20 08/04/21 History subcutaneous solution metformin 1,000 mg tablet 1,000 mg PO BID #180 tab 05/04/20 08/04/21 History sotalol 80 mg tablet 80 mg PO Q12 tab 05/04/20 08/04/21 History albuterol sulfate 90 mcg/actuation 2 inh INHALATION Q4 PRN 08/04/21 08/04/21 History aerosol inhaler aspirin 81 mg chewable tablet 81 mg PO DAILY 08/04/21 08/04/21 History (Aspirin Childrens) glycopyrrolate 9 mcg-formoterol 2 puff INHALATION BID 08/04/21 08/04/21 History 4.8 mcg HFA aerosol inhaler (Bevespi Aerosphere) ipratropium 0.5 mg-albuterol 3 mg 3 ml INHALATION Q4 PRN 08/04/21 08/04/21 History (2.5 mg base)/3 mL nebulization soln lisinopril 20 1 tab PO DAILY 08/04/21 08/04/21 History mg-hydrochlorothiazide 25 mg tablet prednisone 20 mg tablet See Rx Instructions .ROUTE .COMPLEX 08/04/21 08/04/21 History warfarin 2.5 mg tablet 5 mg PO ORNELAS 08/04/21 08/04/21 History Patient History Medical History (Updated 08/05/21 @ 16:35 by Dez Ramsey MD) CHF (congestive heart failure) (12/07/13) Chronic dyspnea Chronic respiratory failure with hypoxia COPD (chronic obstructive pulmonary disease) COPD exacerbation (12/07/13) DCIS (ductal carcinoma in situ) of breast Diabetes Hypertension Insulin dependent diabetes mellitus Paroxysmal atrial fibrillation Respiratory failure with hypoxia Surgical History History of carpal tunnel release History of dental surgery History of partial mastectomy History of tubal ligation Family History (Updated 08/05/21 @ 16:21 by Gus Clement DO) Mother Diabetes Other Breast cancer Deep vein thrombosis Social History Smoking Status: Former smoker packs per day: 0.5; Years Smoked: 20; Second Hand Exposure: Yes; Do You Dip or Chew Tobacco: No; Tobacco Cessation Education Requested by Patient: No Hx Alcohol Use: No Hx Substance Use: No Preferred Language: Uzbek Communication Ability: Effective Dip Dyer Required: No Beliefs That Will Affect Care: None marital status: / Current Living Situation: [facility] Current Living Situation Comment: spring How many Children do You have: 2 Other Information That Helps Us Care for You: No Feels Safe at Home: Yes Safety Concerns: Feels Safe At This Time Assistive Devices: Oxygen - Continuous Review of Systems Review of Systems: All systems reviewed & are unremarkable except as noted in HPI & below Physical Exam Physical Exam: Constitutional: Frail and thin appearing female no apparent distress. Nasal cannula is in place. Eyes: Pupils are equal round and reactive to light. Conjunctivae are normal. Anicteric sclera. Ears nose, mouth and throat: Exam deferred. Face mask in place. Neck: Trachea is midline. Visual inspection is normal. Respiratory: Prolonged phase of exhalation. No wheezes. Cardiovascular: Regular rate and rhythm. No murmurs. No edema. Gastrointestinal: Normal bowel sounds, soft, nontender and nondistended. Musculoskeletal: No cyanosis. Patient is able to move all extremities. Skin: No rashes, warm dry and intact. Neurologic: No obvious focal neurological deficits seen. Psychiatric: Alert and oriented x3 with a euthymic affect. Results & Data Results & Data ([facility]) Vital Signs (Past 12 Hours) Vital Signs Temp Pulse Pulse Resp BP Pulse Ox 08/05/21 15:20 36.5 C 75 18 121/58 L 97 08/05/21 14:00 66 18 97 08/05/21 12:16 36.5 C 82 19 128/62 94 08/05/21 10:03 83 18 96 08/05/21 08:28 75 08/05/21 08:27 36.6 C 82 17 129/72 97 08/05/21 06:51 87 18 90 PG Care Time/CCT Total # of Minutes Spent Total Time Spent with Patient: Total time spent is greater than 50% in coordination of care (as documented) at patient's floor/unit and/or counseling patient: Coding Level of Care Code 21892 Initial Inpt Care Lvl 3 Diagnoses Acute and chronic respiratory failure with hypoxia J96.21 COPD (chronic obstructive pulmonary disease) J44.9 COPD type: unspecified COPD Dependence on supplemental oxygen Z99.81 Chronic dyspnea R06.09
[2021-08-05] MEDS: FLUTICASONE/VILANTEROL 100/25MCG 14 PUFFS/INHALER INH SCH (18:10)
[2021-08-05] MEDS ORDERED: INSULIN GLARGINE SOLOSTAR 100 UNITS/ML 3 ML PEN SC SCH ×3 (21:00)
--- NOTE | 2021-08-05 23:55 | Hospitalist Progress Note ---
Date of Service August 05, 2021 Assessment & Plan (1) Sepsis: (2) Acute and chronic respiratory failure with hypoxia: (3) COPD exacerbation: (4) Pneumonia: Plan: This is a 81-year-old female who has significant past medical history of chronic hypoxemic respiratory failure on 3.5 L of oxygen secondary to COPD and emphysema, insulin-dependent T2DM, PAF anticoagulated on warfarin and rhythm controlled with sotalol, HTN, pulmonary hypertension, history of left breast CA who presents to ED secondary to worsening shortness of breath over the last 2 weeks. Met SIRS/sepsis criteria on admission secondary to tachycardia, leukocytosis and tachypnea. Source: Likely pulmonary in setting of pneumonia and COPD exacerbation Urine culture ordered Obtain blood culture Received IV cefepime and oral doxy in ED, patient with history of colonization of Pseudomonas and Aspergillus Sepsis Acute on chronic respiratory failure with hypoxia COPD exacerbation Pneumonia Met SIRS/sepsis criteria on admission secondary to tachycardia, leukocytosis and tachypnea. CXR showed Subtle interstitial thickening and possible mild bibasilar opacities. Currently weaned off BiPAP to 5 L Continue IV cefepime and oral doxy Continue IV methylprednisolone 20 mg every 8 hours, will transition to PO in am Sputum culture pending Continue pulmonary toilet with nebs, flutter valve, spirometer Pulm on board New LBBB QT prolongation EKG compared to prior 04/2020 with new evidence today of LBBB EKG with QTC 502 Cardio on board ECHO - pending Will continue to avoid QT meds Ok with cardiology to continue sotalol Will repeat EKG in am Insulin-dependent T2DM Last A1c 7.2 on 06/29/2021 Lantus/NovoLog per protocol Hold Metformin Pharmacy on board for glycemic management Paroxysmal atrial fibrillation Supratherapeutic INR Continue sotalol continue to hold warfarin since INR 4.9 Daily INR HTN Continue amlodipine Hold lisinopril/hydrochlorothiazide in setting of hyponatremia and mild dehydration Hyponatremia Na 128 Possible related to HCTZ HCTZ on hold Continue monitor BMP Hypercalcemia Corrected calcium 11.7 Continue to Hold calcium supplement calcium normalized DVT prophylaxis: none in setting of supratherapeutic INR Dispo: PCU PCP: Kiran FULL CODE Admission and Anticipated Discharge Date Admission Date: August 04, 2021 Subjective Pt was seen and examined for follow up of SOB Lying in bed with acute distress respiratory distress She continues to have a hard time to breath after each sentence Currently she is on 6 L NC oxygen suppkement Review of Systems Review of Systems: All systems reviewed & are unremarkable except as noted in Subjective Physical Exam Physical Exam: General- No acute distress Head- atraumatic Eyes- PERRL, EOMI, ENT- oropharynx clear Neck- supple, no JVD Lungs- Diminished BS, Coarse BS Heart- regular rhythm; no murmur Abdomen- normal bowel sounds, soft, nontender Extremities- no calf tenderness Neuro- alert, oriented x 3; PERRL, EOMI; no facial palsy; no dysarthria Skin- warm & dry Results & Data Results & Data ([facility]) Vital Signs (Past 12 Hours) Vital Signs Temp Pulse Resp BP Pulse Ox Pulse Ox 08/05/21 23:02 36.5 C 75 19 115/63 97 08/05/21 20:22 91 H 20 95 08/05/21 20:00 98 08/05/21 19:33 36.3 C L 90 19 136/67 96 08/05/21 15:20 36.5 C 75 18 121/58 L 97 08/05/21 14:00 66 18 97 08/05/21 12:16 36.5 C 82 19 128/62 94
[2021-08-06] MEDS: INSULIN ASPART 100 UNITS/ML 3 ML PEN SC SCH ×6 (00:49→20:59)
[2021-08-06] MEDS: CEFEPIME 2,000 MG in SYRINGE 0 ML IV SCH ×2 (04:05→16:54)
[2021-08-06] MEDS: FLUTICASONE/VILANTEROL 100/25MCG 14 PUFFS/INHALER INH SCH (08:26)
[2021-08-06] MEDS: SOTALOL HCL 80 MG TAB PO SCH ×2 (08:26→21:01)
[2021-08-06] MEDS: amLODIPine BESYLATE 5 MG TAB PO SCH (08:26)
[2021-08-06] MEDS: methylPREDNISolone 20 MG in SYRINGE 0 ML IV SCH (08:26)
[2021-08-06] MEDS: DOXYCYCLINE HYCLATE 100 MG CAP PO SCH ×2 (08:26→20:58)
[2021-08-06] MEDS: UMECLIDINIUM/VILANTEROL 62.5/25MCG 7 PUFFS/INHALER INH SCH (08:26)
[2021-08-06] MEDS: guaiFENesin 600 MG TABCR PO SCH ×2 (08:27→20:58)
[2021-08-06] MEDS: INSULIN GLARGINE SOLOSTAR 100 UNITS/ML 3 ML PEN SC SCH ×2 (08:29→21:00)
[2021-08-06] MEDS: ASPIRIN 81 MG CHEW PO SCH (08:55)
[2021-08-06 09:22] LABS: Allen Test Pos (Pos); Base Excess ABG 5.9 mEq/L (-9-1.8); HCO3 ABG 30 mmol/L (19-24); Oxygen Saturation ABG 95.6 % (90-95); PCO2 ABG 43 mmHg (35-46); PO2 ABG 73 mmHg (80-95); pH ABG 7.47 (7.35-7.45)
[2021-08-06 09:33] LABS: Estimated Average Glucose 183 mg/dl
[2021-08-06] MEDS: ALBUT/IPRATROP 3MG/0.5MG NEB 3 ML VIAL INH SCH ×4 (09:43→19:35)
[2021-08-06 10:39] LABS: INR 3.7 (0.9-1.1); Prothrombin Time 34.2 Seconds (9.0-12.0)
[2021-08-06 11:06] LABS: BUN Creatinine Ratio 44.8 (10-20); Calcium 8.9 mg/dl (8.5-10.1); Creatinine Clr Calc Pharmacy 47.2 ml/min; Est GFR (African American) 95.3 ml/min; Est GFR (Non-African American) 82.3 ml/min; Potassium 4.2 mmol/L (3.5-5.1)
--- NOTE | 2021-08-06 12:08 | Cardiology Progress Note ---
Date of Service August 06, 2021 Assessment & Plan (1) COPD exacerbation: (2) Acute and chronic respiratory failure with hypoxia: (3) Paroxysmal atrial fibrillation: Plan: Patient well-known to the undersigned as I have followed her as an outpatient since her admission in 2013. LVEF remains normal. Do not believe CHF is contributing to SOB. Hold coumadin for INR of 3.7 . Continue sotalol. Pulmonary input noted and appreciate , however, would AVOID treatment with LEVAQUIN (an also avoid azithromycin) due to sotalol treatment. Admission and Anticipated Discharge Date Admission Date: August 04, 2021 Subjective Patient seen in cardiology follow up of LBBB and pAF. She feels and looks a little less tired today. Now on Oxygen ad 4 liters rather than 6 liters. Remains in SR. Review of Systems Review of Systems: All systems reviewed & are unremarkable except as noted in HPI & below Physical Exam Physical Exam: Temp Pulse Resp BP Pulse Ox 35.9 C L 73 28 H 151/72 H 94 08/06/21 07:39 08/06/21 10:28 08/06/21 10:28 08/06/21 07:39 08/06/21 10:28 Constitutional: + ill appearing and + thin Respiratory: + labored breathing and + tachypneic; no retractions and no cough Auscultation: no crackles, no rales and no rhonchi Cardiovascular: RRR, no murmur, no edema Gastrointestinal (Abdomen): normal bowel sounds, soft, nontender, no hepat osplenomegaly Neurologic: PERRL, EOMI, accommodation nl, no face palsy, no dysarthria Results & Data ([facility]) Vital Signs (Past 12 Hours) Vital Signs Temp Pulse Pulse Resp BP Pulse Ox 08/06/21 10:28 73 28 H 94 08/06/21 09:43 89 36 H 96 08/06/21 07:55 72 08/06/21 07:39 35.9 C L 79 20 151/72 H 97 08/06/21 05:09 113 H 08/06/21 04:00 36.9 C 79 30 H 126/76 95 08/06/21 01:58 89 Diagnostic Findings EKG 08/06/21: SR at 75 bpm, IVCD /incomplete LBBB. QTC 502, however taking the QRS duration of 140 ms into account, stable.
--- NOTE | 2021-08-06 12:59 | Pharmacy Report ---
Pharmacy Glycemic Short Note 2 - Date of Service August 06, 2021 - Glycemic Short BSG Results (Last 24 hours): 08/05/21 08/05/21 08/05/21 16:28 20:09 20:09 Glucose POC Glucose 166 H 316 H* 302 H* 08/06/21 08/06/21 08/06/21 00:44 04:01 07:20 Glucose POC Glucose 174 H 220 H 222 H 08/06/21 08/06/21 10:05 11:24 Glucose 243 H POC Glucose 124 H OUTPATIENT ANTIDIABETIC REGIMEN: * Lantus 12 units SC AM * Metformin 1000 mg PO BIDM * HbA1c = 8.0% (08/06/21) ASSESSMENT: * 81 yo F admitted secondary to COPD exacerbation. Pharmacy has been consulted to assist with inpatient glycemic management. * Received a total of 69 units of insulin yesterday (30 units basal + 39 units bolus) * BSGs were uncontrolled: [phone] mg/dL * Fasting BSG was 222 mg/dL - well above goal * Will start 15 units of Lantus BID today to attempt to cover steroids. Remains on Solumedrol 20 mg IV every 8 hours. * Tightened Novolog parameters as well. * Significant drop in BSG at lunch to 124 mg/dL so may need to loosen Novolog throughout the day. PLAN FOR INPATIENT GLYCEMIC CONTROL: * Hold outpatient oral diabetes medications * Basal insulin * Lantus 15 units SC BID * Bolus insulin * NovoLog per scale ACHS or Q6hrs while NPO * Goal Range: Low 110 mg/dL - High 140 mg/dL * Correction Factor: 12 mg/dL/unit * Nutritional / Prandial insulin per carb ratio of 1 unit per 4 grams CHO consumed PLAN FOR DISCHARGE: * HbA1c was 8% from this admission which is at goal given this patient's age and comorbidities. No changes to outpatient regimen upon discharge.
--- NOTE | 2021-08-06 14:55 | Pulmonology Progress Note ---
Date of Service August 06, 2021 Assessment & Plan (1) Acute and chronic respiratory failure with hypoxia: (2) COPD (chronic obstructive pulmonary disease): COPD type: unspecified COPD Qualified Code(s): J44.9 - Chronic obstructive pulmonary disease, unspecified (3) Dependence on supplemental oxygen: (4) Chronic dyspnea: Plan: Attending: Dr. Rudolph Impression: 81-year-old female with COPD and chronic supplemental oxygen at 3 to 3-1/2 L/min via nasal cannula. Patient reports progressive shortness of breath last week. She was hesitant to see her family doctor or go to pulmonology because she does not have a portable oxygen system. She presented to the emergency department on Friday and was admitted for COPD exacerbation. Previous bronchoscopy in 2018 with Aspergillus and Pseudomonas. Patient denies green sputum or overtly malodorous sputum. Chest x-ray generally clear. Expectorated sputum was sent to the lab and reveals many polys, moderate gram-positive cocci, moderate gram-negative bacilli, and few gram-positive bacilli. MRSA screen was negative. Covid, influenza A, influenza B all negative. Recommendations: 1. COPD exacerbation * Baseline supplemental oxygen 3 to 3.5 L/min of oxygen via nasal cannula * Patient admitted and requiring 7 L/min. Back to baseline at this time. * Due to severe COPD, target SaO2 between 88 and 92% * Patient received methylprednisolone on arrival and for the last 2 days. Now converted to prednisone per Dr. Ramsey's recommendation. * Antibiotics include doxycycline and cefepime -can de-escalate into another 5 days of levofloxacin and then stop * Sputum culture currently pending. Await ID and sensitivity * Most recent pulmonary function tests appear to be 2018. FEV1 at that time was 50% and DLCO was 25% 2. History of pulmonary Aspergillus/Pseudomonas: * Bronchoscopy in 2018 * Patient with history of colonized Aspergillus and Pseudomonas. Empirically started on doxycycline and cefepime however sputum cultures are pending. Await ID and sensitivity * Transition to PO levofloxacin for an additional 5 days then stop * Patient describes yellow sputum which is improving with current treatment plan * No indication for bronchoscopy or further work-up other than sputum culture and sensitivity. * If sputum culture comes back with Pseudomonas, consider inhaled tobramycin for 28-day cycles. Follow-up with outpatient clinic 3. Hypercapnia: * Patient hypercapnic on admission via serum CO2 which was elevated at 36 mmol/L * VBG revealed pH of 7.46, PCO2 of 51, PaO2 41, HCO3 35 * ABG with pH 7.47, PCO2 43, PaO2 73, HCO3 30 * Continue to manage supplemental oxygen with an SaO2 target of 88 to 92%. Base line oxygen requirements 3 to 3-1/2 L/min via nasal cannula. Thank you for including us in the care of this patient. At this time patient appears to be at baseline. We will continue treatment as outlined above. The pulmonary service will sign off at this time. Please feel free to call or reconsult with further questions. Admission and Anticipated Discharge Date Admission Date: August 04, 2021 Supervising Physician Co-Signing Physician Notes Chart reviewed and discussed with FRANK and off going clerk general office. Agree with AP as noted. Subjective Attending: Dr. Rudolph Patient seen and examined at bedside in room 2 392. She has no evidence of respiratory distress. She is not using her accessory muscles. She is on 3-1/2 L of supplemental oxygen via nasal cannula. She does demonstrate pursed lip breathing. She reports that she is feeling much better since admission. Sputum samples been collected. There was no evidence of hemoptysis. Patient denies any chest pain, fever, chills, sweats, rigors. She does continue with expectoration of sputum which is yellow in color. She reports some red streaking over the weekend. This has completely resolved. She states that she was on 7 L/min via nasal cannula on admission is currently back to her baseline oxygen requirements. She has no other acute complaints at this time. Review of Systems Review of Systems: All systems reviewed & are unremarkable except as noted in Subjective Physical Exam Physical Exam: GENERAL : No acute distress. Pursed lip breathing. Otherwise no evidence of acute distress. EYES: No icterus, gaze conjugate NOSE: No evidence of epistaxis. Nasal cannula in place MOUTH: No lesions or candidiasis NECK: Supple LUNGS: Scattered bilateral wheezes. Patient also has some evidence of rales. No rhonchi appreciated. Difficult for patient take deep breaths. No induced cough with deep breathing HEART: Regular, rate controlled ABDOMEN: Soft, NT, ND, BS Present EXTREMITIES: No LE edema, pedal pulses intact NEURO: A&OX3 Results & Data Results & Data ([facility]) Vital Signs (Past 12 Hours) Vital Signs Temp Pulse Pulse Resp BP Pulse Ox 08/06/21 12:43 36.8 C 66 18 143/78 H 95 08/06/21 10:28 73 28 H 94 08/06/21 09:43 89 36 H 96 08/06/21 07:55 72 08/06/21 07:39 35.9 C L 79 20 151/72 H 97 08/06/21 05:09 113 H 08/06/21 04:00 36.9 C 79 30 H 126/76 95 Laboratory Results 08/05/21 01:59 08/06/21 10:05 08/04/21 08/06/21 15:06 09:09 ABG pH 7.47 H ABG pCO2 43 ABG pO2 73 L ABG HCO3 30 H ABG O2 Saturation 95.6 H ABG Base Excess 5.9 H VBG pH 7.46 H VBG pCO2 51 H VBG pO2 41 VBG HCO3 35 VBG O2 Saturation 74.2 VBG Base Excess 9.8 COVID-19 Results 08/04/21 15:01 SARS-CoV-2 (PCR) NEGATIVE Microbiology 08/04/21 16:57 Urine Culture - Final Urine,Clean Catch More than three types of organisms present, all moderate counts mixed probable skin jarrell. No further identifications or sensitivities to follow. 08/05/21 22:20 Gram Stain - Final Gram Stain Final 08/06/21-0710 Gram Stain Result Moderate Epithelial Cells Many Polys Moderate Gram Positive Cocci Moderate Gram Negative Bacilli Few Gram Positive Bacilli Sputum Culture PENDING Sputum, Expectorated 08/04/21 19:58 Aerobic Blood Culture - Preliminary Blood No growth in Aerobic bottle after 24 hours. Anaerobic Blood Culture - Preliminary No growth in Anaerobic bottle after 24 hours. 08/04/21 19:58 Aerobic Blood Culture - Preliminary Blood No growth in Aerobic bottle after 24 hours. Anaerobic Blood Culture - Preliminary No growth in Anaerobic bottle after 24 hours. Diagnostic Findings No diagnostic imaging since 08/04/2021. XR chest 1V [id number]/2021 CLINICAL HISTORY: Dyspnea, COPD, Bipap COMPARISON STUDY: Chest radiograph June 01, 2019. Chest CT November 06, 2017. FINDINGS: There is no pneumothorax or pleural effusion. Cardiomediastinal silhouette is stable. Emphysema is better depicted on prior CT. There are possible mild bilateral lower lung opacities. This could be artifactual. Subtle interstitial thickening has increased. IMPRESSION: Subtle interstitial thickening and possible mild bibasilar opacities. An infectious process superimposed upon emphysema cannot be excluded. Radiographic follow-up is recommended. ACT 112: Negative or not required by law. Electronically signed by: Melchor Tafoya M.D. 08/04/2021 3:12 PM PG Care Time/CCT Total # of Minutes Spent Total Time Spent with Patient: Total time spent is greater than 50% in coordination of care (as documented) at patient's floor/unit and/or counseling patient: 30 minutes Coding Level of Care Code 87585 Subseq Hosp Care Lvl 2 Diagnoses Acute and chronic respiratory failure with hypoxia J96.21 COPD (chronic obstructive pulmonary disease) J44.9 COPD type: unspecified COPD Dependence on supplemental oxygen Z99.81 Chronic dyspnea R06.09 Time Spent (min) 30
--- NOTE | 2021-08-06 15:57 | Electrocardiogram Report ---
Test Reason : Blood Pressure : / mmHG Vent. Rate : 075 BPM Atrial Rate : 075 BPM P-R Int : 140 ms QRS Dur : 140 ms QT Int : 450 ms P-R-T Axes : 069 073 091 degrees QTc Int : 502 ms Normal sinus rhythm Non-specific intra-ventricular conduction block Abnormal ECG When compared with ECG of 04-AUG-2021 14:59, Premature atrial complexes are no longer Present Questionable change in QRS axis Confirmed by Elmer Pillai ([id number]) on 08/06/2021 3:57:09 PM Referred By: Lisset Germain Confirmed By:Elmer Pillai
[2021-08-06 18:17] LABS: SARS CoV2 RNA(COVID-19) InHosp NEGATIVE (Negative)
[2021-08-06] MEDS ORDERED: predniSONE 20 MG TAB PO ONE (20:00)
--- NOTE | 2021-08-06 22:00 | Hospitalist Progress Note ---
Date of Service August 06, 2021 Assessment & Plan (1) Sepsis: (2) Acute and chronic respiratory failure with hypoxia: (3) COPD exacerbation: (4) Pneumonia: Plan: This is a 81-year-old female who has significant past medical history of chronic hypoxemic respiratory failure on 3.5 L of oxygen secondary to COPD and emphysema, insulin-dependent T2DM, PAF anticoagulated on warfarin and rhythm controlled with sotalol, HTN, pulmonary hypertension, history of left breast CA who presents to ED secondary to worsening shortness of breath over the last 2 weeks. Met SIRS/sepsis criteria on admission secondary to tachycardia, leukocytosis and tachypnea. Source: Likely pulmonary in setting of pneumonia and COPD exacerbation Urine culture ordered Obtain blood culture Received IV cefepime and oral doxy in ED, patient with history of colonization of Pseudomonas and Aspergillus Sepsis Acute on chronic respiratory failure with hypoxia COPD exacerbation Pneumonia Met SIRS/sepsis criteria on admission secondary to tachycardia, leukocytosis and tachypnea. CXR showed Subtle interstitial thickening and possible mild bibasilar opacities. Currently weaned off BiPAP to 5 L Continue IV cefepime and oral doxy IV steroids transition to p.o. prednisone 20 mg daily starting tomorrow Sputum culture pending If sputum culture comes back with Pseudomonas, consider inhaled tobramycin for 28-day cycles. Avoid quinolone and azithromycin while on sotalol treatment Continue pulmonary toilet with nebs, flutter valve, spirometer Pulm on board New LBBB QT prolongation EKG compared to prior 04/2020 with new evidence today of LBBB EKG with QTC 502 Cardio on board ECHO - pending Will continue to avoid QT meds Ok with cardiology to continue sotalol Insulin-dependent T2DM Last A1c 7.2 on 06/29/2021 Lantus/NovoLog per protocol Hold Metformin Pharmacy on board for glycemic management Paroxysmal atrial fibrillation Supratherapeutic INR Continue sotalol continue to hold warfarin since INR 3.7 Daily INR HTN Continue amlodipine Hold lisinopril/hydrochlorothiazide in setting of hyponatremia and mild dehydration Hyponatremia Na 128 Possible related to HCTZ HCTZ on hold Continue monitor BMP Hypercalcemia Corrected calcium 11.7 Continue to Hold calcium supplement calcium normalized DVT prophylaxis: Coumadin on hold in the setting of supratherapeutic INR Dispo: PCU PCP: Kiran FULL CODE Admission and Anticipated Discharge Date Admission Date: August 04, 2021 Subjective Pt was seen and examined for follow up of SOB Lying in bed withno acute distress respiratory distress She said her breathing is feeling much better today but with exertion she got tired easily Currently she is on 4 L NC oxygen supplement Denies any chest pain, palpitation, fever. Review of Systems Review of Systems: All systems reviewed & are unremarkable except as noted in Subjective Physical Exam Physical Exam: General- No acute distress Head- atraumatic Eyes- PERRL, EOMI, ENT- oropharynx clear Neck- supple, no JVD Lungs- Diminished BS, Coarse BS Heart- regular rhythm; no murmur Abdomen- normal bowel sounds, soft, nontender Extremities- no calf tenderness Neuro- alert, oriented x 3; PERRL, EOMI; no facial palsy; no dysarthria Skin- warm & dry Results & Data Results & Data ([facility]) Vital Signs (Past 12 Hours) Vital Signs Temp Pulse Pulse Resp BP Pulse Ox Pulse Ox 08/06/21 20:46 36.8 C 94 H 20 145/74 H 91 08/06/21 20:00 91 08/06/21 19:37 94 H 22 95 08/06/21 16:00 36.8 C 65 18 154/74 H 91 08/06/21 15:31 79 08/06/21 15:07 79 18 94 08/06/21 12:43 36.8 C 66 18 143/78 H 95 08/06/21 10:28 73 28 H 94
[2021-08-07] MEDS: CEFEPIME 2,000 MG in SYRINGE 0 ML IV SCH ×2 (04:01→16:27)
[2021-08-07] MEDS: ALBUT/IPRATROP 3MG/0.5MG NEB 3 ML VIAL INH SCH ×4 (07:05→18:59)
[2021-08-07 07:33] LABS: INR 2.1 (0.9-1.1); Prothrombin Time 19.8 Seconds (9.0-12.0)
[2021-08-07] MEDS: INSULIN ASPART 100 UNITS/ML 3 ML PEN SC SCH ×4 (08:00→21:18)
[2021-08-07] MEDS: guaiFENesin 600 MG TABCR PO SCH ×2 (08:22→21:20)
[2021-08-07] MEDS: SOTALOL HCL 80 MG TAB PO SCH ×2 (08:22→21:20)
[2021-08-07] MEDS: DOXYCYCLINE HYCLATE 100 MG CAP PO SCH ×2 (08:22→21:20)
[2021-08-07] MEDS: amLODIPine BESYLATE 5 MG TAB PO SCH (08:23)
[2021-08-07] MEDS: UMECLIDINIUM/VILANTEROL 62.5/25MCG 7 PUFFS/INHALER INH SCH (08:23)
[2021-08-07] MEDS: INSULIN GLARGINE SOLOSTAR 100 UNITS/ML 3 ML PEN SC SCH (08:23)
[2021-08-07] MEDS: FLUTICASONE/VILANTEROL 100/25MCG 14 PUFFS/INHALER INH SCH (08:23)
[2021-08-07] MEDS: ASPIRIN 81 MG CHEW PO SCH (08:26)
[2021-08-07] MEDS: predniSONE 10 MG TABLET PO SCH (10:00)
--- NOTE | 2021-08-07 14:38 | Cardiology Progress Note ---
Date of Service August 07, 2021 Assessment & Plan (1) COPD exacerbation: (2) Acute and chronic respiratory failure with hypoxia: (3) Paroxysmal atrial fibrillation: Plan: Patient well-known to the undersigned as I have followed her as an outpatient since her admission in 2013. LVEF remains normal. Do not believe CHF is contributing to SOB. 08/07/2021, INR, 2.1, agree with resuming Coumadin. Continue sotalol. Pulmonary input noted and appreciate , however, would AVOID treatment with LEVAQUIN (an also avoid azithromycin) due to sotalol treatment. Continue doxycycline, sputum culture sensitivities pending. Admission and Anticipated Discharge Date Admission Date: August 04, 2021 Subjective Patient seen in follow-up. She had a bad night last night, and transiently needed additional oxygen support up to 6 L/min, now back to her previous 4 L/min. Afebrile. Telemetry reveals ongoing sinus rhythm in the 70s to 80s. Physical Exam Physical Exam: Temp Pulse Resp BP Pulse Ox 36.3 C L 84 25 H 126/65 95 08/07/21 11:17 08/07/21 14:02 08/07/21 14:02 08/07/21 11:17 08/07/21 14:02 Constitutional: + ill appearing and + thin Respiratory: + labored breathing and + tachypneic; no retractions and no cough Auscultation: no crackles, no rales and no rhonchi Cardiovascular: RRR, no murmur, no edema Gastrointestinal (Abdomen): normal bowel sounds, soft, nontender, no hepatosplenomegaly Neurologic: PERRL, EOMI, accommodation nl, no face palsy, no dysarthria Results & Data ([facility]) Vital Signs (Past 12 Hours) Vital Signs Temp Pulse Pulse Resp BP Pulse Ox 08/07/21 14:02 84 25 H 95 08/07/21 11:17 36.3 C L 76 18 126/65 96 08/07/21 10:26 74 18 99 08/07/21 09:46 78 08/07/21 07:08 36.4 C L 88 28 H 127/61 95 08/07/21 07:06 80 20 96 08/07/21 03:17 36.4 C L 87 22 123/66 97
[2021-08-07] MEDS: WARFARIN SOD 2.5 MG TAB PO SCH (16:28)
[2021-08-07] MEDS ORDERED: INSULIN GLARGINE SOLOSTAR 100 UNITS/ML 3 ML PEN SC SCH (21:00)
--- NOTE | 2021-08-07 22:50 | Hospitalist Progress Note ---
Date of Service August 07, 2021 Assessment & Plan (1) Sepsis: (2) Acute and chronic respiratory failure with hypoxia: (3) COPD exacerbation: (4) Pneumonia: Plan: This is a 81-year-old female who has significant past medical history of chronic hypoxemic respiratory failure on 3.5 L of oxygen secondary to COPD and emphysema, insulin-dependent T2DM, PAF anticoagulated on warfarin and rhythm controlled with sotalol, HTN, pulmonary hypertension, history of left breast CA who presents to ED secondary to worsening shortness of breath over the last 2 weeks. Met SIRS/sepsis criteria on admission secondary to tachycardia, leukocytosis and tachypnea. Source: Likely pulmonary in setting of pneumonia and COPD exacerbation Urine culture ordered Obtain blood culture Received IV cefepime and oral doxy in ED, patient with history of colonization of Pseudomonas and Aspergillus Sepsis Acute on chronic respiratory failure with hypoxia COPD exacerbation Pneumonia Met SIRS/sepsis criteria on admission secondary to tachycardia, leukocytosis and tachypnea. CXR showed Subtle interstitial thickening and possible mild bibasilar opacities. Currently weaned off BiPAP to 5 L Continue IV cefepime and oral doxy IV steroids transition to p.o. prednisone 30 mg daily Sputum culture gram-negative bacilli and Aspergillus species If sputum culture comes back with Pseudomonas, consider inhaled tobramycin for 28-day cycles. Avoid quinolone and azithromycin while on sotalol treatment Continue pulmonary toilet with nebs, flutter valve, spirometer Pulm on board New LBBB QT prolongation EKG compared to prior 04/2020 with new evidence today of LBBB EKG with QTC 502 Cardio on board ECHO showed no LV wall motion abnormality. Ejection fraction 55 to 60% Will continue to avoid QT meds Ok with cardiology to continue sotalol Insulin-dependent T2DM Last A1c 7.2 on 06/29/2021 Lantus/NovoLog per protocol Continue to hold Metformin Pharmacy on board for glycemic management Paroxysmal atrial fibrillation Supratherapeutic INR Continue sotalol Coumadin resumed with INR 2.1 today Continue monitor PT/INR HTN Continue amlodipine Hold lisinopril/hydrochlorothiazide in setting of hyponatremia and mild dehydration BP stable Hyponatremia Na 128 Possible related to HCTZ HCTZ on hold Continue monitor BMP Hypercalcemia Corrected calcium 11.7 Continue to Hold calcium supplement calcium normalized DVT prophylaxis: Coumadin resumed Dispo: PCU PCP: Kiran FULL CODE Admission and Anticipated Discharge Date Admission Date: August 04, 2021 Subjective Pt was seen and examined for follow up of SOB Sitting at the edge of the bed withno acute distress respiratory distress eating lunch She said her breathing is feeling much better today but continue to feel tire with minimal exertion Currently she is on 4 L NC oxygen supplement Denies any chest pain, palpitation, fever. Review of Systems Review of Systems: All systems reviewed & are unremarkable except as noted in Subjective Physical Exam Physical Exam: General- No acute distress Head- atraumatic Eyes- PERRL, EOMI, ENT- oropharynx clear Neck- supple, no JVD Lungs- Diminished BS, Coarse BS Heart- regular rhythm; no murmur Abdomen- normal bowel sounds, soft, nontender Extremities- no calf tenderness Neuro- alert, oriented x 3; PERRL, EOMI; no facial palsy; no dysarthria Skin- warm & dry Results & Data Results & Data ([facility]) Vital Signs (Past 12 Hours) Vital Signs Temp Pulse Pulse Resp BP Pulse Ox Pulse Ox 08/07/21 20:00 93 08/07/21 19:22 36.8 C 90 18 142/81 H 97 08/07/21 19:00 78 24 95 08/07/21 15:28 36.6 C 104 H 18 121/72 91 08/07/21 14:56 96 H 08/07/21 14:02 84 25 H 95 08/07/21 11:17 36.3 C L 76 18 126/65 96
[2021-08-08] MEDS: CEFEPIME 2,000 MG in SYRINGE 0 ML IV SCH ×3 (04:09→23:23)
[2021-08-08 05:59] LABS: Hematocrit (blood only) 34.7 % (37-47); Hemoglobin 10.8 g/dL (12.0-16.0); Mean Corpuscular Hgb Conc 31.1 g/dL (32-36); Mean Corpuscular Volume 83.6 fL (80-100); Mean Platelet Volume 10.1 fL (7.4-10.4); Platelet Count 523 K/uL (130-400); RDW Coefficient of Variation 15.1 % (11.5-14.5); RDW Standard Deviation 46.4 fL (36.4-46.3); Red Blood Count 4.15 M/uL (4.2-5.4); White Blood Count 14.53 K/uL (4.8-10.8)
[2021-08-08 06:08] LABS: INR 1.9 (0.9-1.1); Prothrombin Time 18.6 Seconds (9.0-12.0)
[2021-08-08 06:32] LABS: BUN Creatinine Ratio 69.8 (10-20); Calcium 8.4 mg/dl (8.5-10.1); Creatinine Clr Calc Pharmacy 67.7 ml/min; Est GFR (African American) 107.4 ml/min; Est GFR (Non-African American) 92.6 ml/min; Phosphorus 1.6 mg/dl (2.5-4.9); Potassium 3.7 mmol/L (3.5-5.1)
[2021-08-08] MEDS: ALBUT/IPRATROP 3MG/0.5MG NEB 3 ML VIAL INH SCH ×4 (07:09→19:56)
[2021-08-08] MEDS: guaiFENesin 600 MG TABCR PO SCH ×2 (08:31→20:35)
[2021-08-08] MEDS: SOTALOL HCL 80 MG TAB PO SCH ×2 (08:31→20:35)
[2021-08-08] MEDS: FLUTICASONE/VILANTEROL 100/25MCG 14 PUFFS/INHALER INH SCH (08:31)
[2021-08-08] MEDS: predniSONE 10 MG TABLET PO SCH (08:31)
[2021-08-08] MEDS: amLODIPine BESYLATE 5 MG TAB PO SCH (08:31)
[2021-08-08] MEDS: DOXYCYCLINE HYCLATE 100 MG CAP PO SCH ×2 (08:31→20:35)
[2021-08-08] MEDS: UMECLIDINIUM/VILANTEROL 62.5/25MCG 7 PUFFS/INHALER INH SCH (08:31)
[2021-08-08] MEDS: INSULIN ASPART 100 UNITS/ML 3 ML PEN SC SCH ×4 (08:32→20:40)
[2021-08-08] MEDS: INSULIN GLARGINE SOLOSTAR 100 UNITS/ML 3 ML PEN SC SCH (08:33)
[2021-08-08] MEDS: ASPIRIN 81 MG CHEW PO SCH (08:37)
--- NOTE | 2021-08-08 14:20 | Pharmacy Report ---
Pharmacy Glycemic Short Note 2 - Date of Service August 08, 2021 - Glycemic Short BSG Results (Last 24 hours): 08/07/21 08/07/21 08/08/21 16:26 19:54 05:45 Glucose 69 L POC Glucose 110 H 153 H 08/08/21 08/08/21 07:16 11:29 Glucose POC Glucose 79 155 H OUTPATIENT ANTIDIABETIC REGIMEN: * Lantus 12 units SC AM * Metformin 1000 mg PO BIDM * HbA1c = 8.0% (08/06/21) ASSESSMENT: 08/08: * Salome received a total of 55 units of insulin yesterday (27 units Lantus + 28 units Novolog) * BSGs were well controlled yesterday: [phone] mg/dL * Fasting BSG well controlled at 79 mg/dL this AM * Had initially decreased patient to 12 units of Lantus BID starting last evening. Given the significant trend down in fasting BSG today, will transition patient back to once daily Lantus to mimic home regimen. Will still use increased dose of 15 units daily to account for steroids. * No change to Novolog. 08/06: * 81 yo F admitted secondary to COPD exacerbation. Pharmacy has been consulted to assist with inpatient glycemic management. * Received a total of 69 units of insulin yesterday (30 units basal + 39 units bolus) * BSGs were uncontrolled: [phone] mg/dL * Fasting BSG was 222 mg/dL - well above goal * Will start 15 units of Lantus BID today to attempt to cover steroids. Remains on Solumedrol 20 mg IV every 8 hours. * Tightened Novolog parameters as well. * Significant drop in BSG at lunch to 124 mg/dL so may need to loosen Novolog throughout the day. PLAN FOR INPATIENT GLYCEMIC CONTROL: * Hold outpatient oral diabetes medications * Basal insulin - decreased * Lantus 15 units SC daily * Bolus insulin * NovoLog per scale ACHS or Q6hrs while NPO * Goal Range: Low 110 mg/dL - High 140 mg/dL * Correction Factor: 15 mg/dL/unit * Nutritional / Prandial insulin per carb ratio of 1 unit per 5 grams CHO consumed PLAN FOR DISCHARGE: * HbA1c was 8% from this admission which is at goal given this patient's age and comorbidities. No changes to outpatient regimen upon discharge.
--- NOTE | 2021-08-08 15:39 | Hospitalist Progress Note ---
Date of Service August 08, 2021 Assessment & Plan (1) Sepsis: (2) Acute and chronic respiratory failure with hypoxia: (3) COPD exacerbation: (4) Pneumonia: Plan: 81 yo F w/ hx of chronic hypoxemic respiratory failure on 3.5 L of oxygen secondary to COPD and emphysema, insulin-dependent T2DM, PAF anticoagulated on warfarin and rhythm controlled with sotalol, HTN, pulmonary hypertension, history of left breast CA who presents secondary to worsening shortness of breath over the last 2 weeks. Met SIRS/sepsis criteria on admission secondary to tachycardia, leukocytosis and tachypnea. Source: Likely pulmonary in setting of pneumonia and COPD exacerbation Urine culture - mixed jarrell blood culture- negative Received IV cefepime and oral doxy in ED, patient with history of colonization of Pseudomonas and Aspergillus Sepsis Acute on chronic respiratory failure with hypoxia COPD exacerbation Pneumonia Met SIRS/sepsis criteria on admission secondary to tachycardia, leukocytosis and tachypnea. CXR showed Subtle interstitial thickening and possible mild bibasilar opacities. weaned off BiPAP to 5 L Continue IV cefepime and oral doxy IV steroids transitioned to p.o. prednisone 30 mg daily Sputum culture gram-negative bacilli and Aspergillus species, Pseudomonas 08/08 - Start inhaled tobramycin for 28-day cycles (given + Pseudomonas) Avoid quinolone and azithromycin while on sotalol treatment Continue pulmonary toilet with nebs, flutter valve, spirometer Pulmonary medicine consulted (patient follows with Dr. Ramsey as outpatient) New LBBB QT prolongation EKG compared to prior 04/2020 with new evidence today of LBBB EKG with QTC 502 Cardiology following ECHO showed no LV wall motion abnormality. Ejection fraction 55 to 60% Will continue to avoid QT meds Ok with cardiology to continue sotalol Insulin-dependent T2DM Last A1c 7.2 on 06/29/2021 Lantus/NovoLog per protocol Continue to hold Metformin Pharmacy on board for glycemic management Paroxysmal atrial fibrillation Supratherapeutic INR Continue sotalol Coumadin resumed, goal INR 2-3 Continue monitor PT/INR HTN Continue amlodipine Hold lisinopril/hydrochlorothiazide in setting of hyponatremia and mild dehydration BP stable Hyponatremia Na 129 on 08/04 Possible related to HCTZ HCTZ on hold Continue monitor BMP Current Na 138 (08/08) Hypercalcemia Corrected calcium 11.7 Continue to Hold calcium supplement calcium normalized DVT prophylaxis: Coumadin resumed Dispo: PCU PCP: Dr. Beck FULL CODE Admission and Anticipated Discharge Date Admission Date: August 04, 2021 Subjective Pt was seen and examined for follow up of SOB Sitting up in a chair, in no acute distress, family visiting Says her breathing is better overall but she started to have brown thin sputum again Sputum culture positive for Pseudomonas, starting inh. tobramycin Currently she is on 3-4 L NC oxygen supplement(baseline) She also reports difficulty with hearing for several weeks, and is worried that this is secondary to her Aspergillus infection Denies any chest pain, palpitation, fever. Review of Systems Review of Systems: All systems reviewed & are unremarkable except as noted in Subjective Physical Exam Physical Exam: General- elderly F in No acute distress Head- atraumatic Eyes- PERRL, EOMI, ENT- oropharynx clear Neck- supple, no JVD Lungs- + diffuse rhonchi, no wheezing Heart- regular rhythm; no murmur Abdomen- normal bowel sounds, soft, nontender Extremities- no calf tenderness, moves extremities Neuro- alert, oriented x 3; PERRL, EOMI; no facial palsy; no dysarthria, moves extremities Skin- warm & dry Results & Data Results & Data ([facility]) Vital Signs (Past 12 Hours) Vital Signs Temp Pulse Resp BP Pulse Ox 08/08/21 15:35 36.8 C 87 20 123/68 96 08/08/21 14:12 87 20 95 08/08/21 11:38 36.6 C 89 18 149/63 H 97 08/08/21 10:38 80 20 96 08/08/21 07:58 37.2 C 87 18 121/65 94 08/08/21 07:09 79 20 96 08/08/21 03:51 36.4 C L 79 18 123/68 99 Laboratory Results 08/08/21 08/08/21 08/08/21 Range/Units 11:29 07:16 05:45 WBC 14.53 H (4.8-10.8) K/uL RBC 4.15 L (4.2-5.4) M/uL Hgb 10.8 L (12.0-16.0) g/dL Hct 34.7 L (37-47) % MCV 83.6 (80-100) fL MCH 26.0 (25-34) pg MCHC 31.1 L (32-36) g/dL RDW Std Deviation 46.4 H (36.4-46.3) fL RDW Coeff of Derek 15.1 H (11.5-14.5) % Plt Count 523 H (130-400) K/uL MPV 10.1 (7.4-10.4) fL PT (9.0-12.0) Seconds INR (0.9-1.1) Sodium (136-145) mmol/L Potassium (3.5-5.1) mmol/L Chloride (98-107) mmol/L Carbon Dioxide (21-32) mmol/L Anion Gap (3-11) BUN (7-18) mg/dl Creatinine (0.6-1.2) mg/dl Est Cr Clr Drug Dosing ml/min Est GFR ( Amer) ml/min Est GFR (Non-Af Amer) ml/min BUN/Creatinine Ratio (10-20) Glucose (70-99) mg/dl POC Glucose 155 H 79 (70-99) mg/dl Calcium (8.5-10.1) mg/dl Phosphorus (2.5-4.9) mg/dl Magnesium (1.8-2.4) mg/dl 08/08/21 08/08/21 08/07/21 Range/Units 05:45 05:45 19:54 WBC (4.8-10.8) K/uL RBC (4.2-5.4) M/uL Hgb (12.0-16.0) g/dL Hct (37-47) % MCV (80-100) fL MCH (25-34) pg MCHC (32-36) g/dL RDW Std Deviation (36.4-46.3) fL RDW Coeff of Derek (11.5-14.5) % Plt Count (130-400) K/uL MPV (7.4-10.4) fL PT 18.6 H (9.0-12.0) Seconds INR 1.9 H (0.9-1.1) Sodium 138 (136-145) mmol/L Potassium 3.7 (3.5-5.1) mmol/L Chloride 102 (98-107) mmol/L Carbon Dioxide 33 H (21-32) mmol/L Anion Gap 3.0 (3-11) BUN 32 H (7-18) mg/dl Creatinine 0.46 L (0.6-1.2) mg/dl Est Cr Clr Drug Dosing 67.7 ml/min Est GFR ( Amer) 107.4 ml/min Est GFR (Non-Af Amer) 92.6 ml/min BUN/Creatinine Ratio 69.8 H (10-20) Glucose 69 L (70-99) mg/dl POC Glucose 153 H (70-99) mg/dl Calcium 8.4 L (8.5-10.1) mg/dl Phosphorus 1.6 L (2.5-4.9) mg/dl Magnesium 2.0 (1.8-2.4) mg/dl 08/07/21 Range/Units 16:26 WBC (4.8-10.8) K/uL RBC (4.2-5.4) M/uL Hgb (12.0-16.0) g/dL Hct (37-47) % MCV (80-100) fL MCH (25-34) pg MCHC (32-36) g/dL RDW Std Deviation (36.4-46.3) fL RDW Coeff of Derek (11.5-14.5) % Plt Count (130-400) K/uL MPV (7.4-10.4) fL PT (9.0-12.0) Seconds INR (0.9-1.1) Sodium (136-145) mmol/L Potassium (3.5-5.1) mmol/L Chloride (98-107) mmol/L Carbon Dioxide (21-32) mmol/L Anion Gap (3-11) BUN (7-18) mg/dl Creatinine (0.6-1.2) mg/dl Est Cr Clr Drug Dosing ml/min Est GFR ( Amer) ml/min Est GFR (Non-Af Amer) ml/min BUN/Creatinine Ratio (10-20) Glucose (70-99) mg/dl POC Glucose 110 H (70-99) mg/dl Calcium (8.5-10.1) mg/dl Phosphorus (2.5-4.9) mg/dl Magnesium (1.8-2.4) mg/dl Medications Administered Current Inpatient Medications Acetaminophen (Acetaminophen 325 Mg Tab) 650 mg PO Q4H PRN PRN Reason: Pain or Fever Stop: 09/03/21 19:59 Al Hydrox/Mg Hydrox/Simethicone (Aluminum/Magnesium Susp 30 Ml Udc) 15 ml PO Q4H PRN PRN Reason: Dyspepsia Stop: 09/03/21 19:59 Last Admin: 08/05/21 02:45 Dose: 15 ml Documented by: Albuterol (Albuterol Hfa 8 Gm Inhaler) 2 puffs INH Q4 PRN; Protocol PRN Reason: cough,sob,wheezing Stop: 09/03/21 19:59 Albuterol (Albut/Ipratrop 3mg/0.5mg Neb 3 Ml Vial) 3 ml INH QIDR JOHN Stop: 09/03/21 20:59 Last Admin: 08/08/21 14:12 Dose: 3 ml Documented by: Amlodipine Besylate (Amlodipine Besylate 5 Mg Tab) 5 mg PO DAILY [facility] Stop: 09/04/21 08:59 Last Admin: 08/08/21 08:31 Dose: 5 mg Documented by: Aspirin (Aspirin 81 Mg Chew) 81 mg PO DAILY JOHN Stop: 09/04/21 08:59 Last Admin: 08/08/21 08:37 Dose: 81 mg Documented by: Dextrose (Dextrose 50% 50 Ml Syringe) 25 - 50 ml IV UD PRN; Protocol PRN Reason: Hypoglycemia Protocol Stop: 09/03/21 19:59 Doxycycline Hyclate (Doxycycline Hyclate 100 Mg Cap) 100 mg PO BID [facility] Stop: 08/11/21 20:59 Last Admin: 08/08/21 08:31 Dose: 100 mg Documented by: Fluticasone/Vilanterol (Fluticasone/Vilanterol 100/25mcg 14 Puffs/Inhaler) 1 puffs INH DAILY JOHN Stop: 09/04/21 16:59 Last Admin: 08/08/21 08:31 Dose: 1 puffs Documented by: Glucagon (Glucagon For Inj 1 Mg Vial) 1 mg SQ UD PRN; Protocol PRN Reason: Hypoglycemia Protocol Stop: 09/03/21 19:59 Glucose (Glucose 10 Tabs/Tube) 4 - 8 tabs PO UD PRN; Protocol PRN Reason: Hypoglycemia Protocol Stop: 09/03/21 19:59 Glucose (Glucose 40% Gel 15 Gm Tube) 15 - 30 gm PO UD PRN; Protocol PRN Reason: Hypoglycemia Protocol Stop: 09/03/21 19:59 Guaifenesin (Guaifenesin 600 Mg Tabcr) 1,200 mg PO Q12 JOHN Stop: 09/03/21 20:59 Last Admin: 08/08/21 08:31 Dose: 1,200 mg Documented by: Promethazine HCl 6.25 mg/ (Sodium Chloride) 50.25 mls @ 201 mls/hr IV Q6H PRN PRN Reason: Nausea And Vomiting Stop: 09/03/21 19:59 Cefepime HCl 2,000 mg/ Syringe 20 mls @ 5 mls/min IV Q8H JOHN; Protocol Stop: 08/11/21 15:59 Last Admin: 08/08/21 17:01 Dose: 5 mls/min Documented by: Sodium Phosphate 12 mmol/ (Sodium Chloride) 254 mls @ 88 mls/hr IV ONE ONE Stop: 08/08/21 18:53 Last Admin: 08/08/21 16:56 Dose: 88 mls/hr Documented by: Insulin Aspart (Insulin Aspart 100 Units/Ml 3 Ml Pen) 0 units SC ACHS [facility]; Protocol Stop: 09/03/21 20:59 Last Admin: 08/08/21 16:58 Dose: 13 units Documented by: Insulin Glargine (Insulin Glargine Solostar 100 Units/Ml 3 Ml Pen) 15 units SC DAILY [facility]; Protocol Stop: 09/07/21 08:59 Last Admin: 08/08/21 08:33 Dose: 15 units Documented by: Magnesium Hydroxide (Magnesium Hydroxide Susp 30 Ml Udc) 30 ml PO Q12H PRN PRN Reason: Constipation Stop: 09/03/21 19:59 Miscellaneous (Carbohydrates For Hypoglycemia ) 15 - 30 gm PO UD PRN PRN Reason: Hypoglycemia Protocol Stop: 09/03/21 19:59 Miscellaneous Information (Pharmacy Glycemic Mgmt Consult) 1 ea N/A UD PRN PRN Reason: Consult Stop: 09/03/21 19:59 Polyethylene Glycol (Polyethylene (Miralax) 17 Gm Pack) 17 gm PO DAILY PRN PRN Reason: Constipation Stop: 09/03/21 19:59 Prednisone (Prednisone 10 Mg Tablet) 30 mg PO DAILY JOHN Stop: 09/06/21 08:59 Last Admin: 08/08/21 08:31 Dose: 30 mg Documented by: Sotalol HCl (Sotalol Hcl 80 Mg Tab) 80 mg PO Q12 [facility] Stop: 09/03/21 20:59 Last Admin: 08/08/21 08:31 Dose: 80 mg Documented by: Tobramycin Sulfate (Tobramycin 300mg Neb) 300 mg INH BIDR [facility] Stop: 09/05/21 07:01 Umeclidinium/Vilanterol (Umeclidinium/Vilanterol 62.5/25mcg 7 Puffs/Inhaler) 1 puffs INH DAILY [facility]; Protocol Stop: 09/04/21 08:59 Last Admin: 08/08/21 08:31 Dose: 1 puffs Documented by: Warfarin Sodium (Warfarin Sod 2.5 Mg Tab) 2.5 mg PO DAILY@1600 [facility] Stop: 09/06/21 15:59 Last Admin: 08/08/21 16:59 Dose: 2.5 mg Documented by:
[2021-08-08] MEDS ORDERED: SODIUM PHOSPHATE 3 MMOL/1 ML INFUSION IV STA (15:40)
[2021-08-08] MEDS ORDERED: SODIUM PHOSPHATE 12 MMOL in SODIUM CHLORIDE 0.9% 250 ML IV ONE (16:00)
[2021-08-08] MEDS: WARFARIN SOD 2.5 MG TAB PO SCH (16:59)
[2021-08-08] MEDS: TOBRAMYCIN 300MG NEB INH SCH (23:35)
[2021-08-09 07:02] LABS: Hematocrit (blood only) 34.4 % (37-47); Hemoglobin 10.6 g/dL (12.0-16.0); Mean Corpuscular Hgb Conc 30.8 g/dL (32-36); Mean Corpuscular Volume 84.3 fL (80-100); Mean Platelet Volume 10.2 fL (7.4-10.4); Platelet Count 557 K/uL (130-400); RDW Coefficient of Variation 15.3 % (11.5-14.5); Red Blood Count 4.08 M/uL (4.2-5.4)
[2021-08-09] MEDS: ALBUT/IPRATROP 3MG/0.5MG NEB 3 ML VIAL INH SCH ×4 (07:15→19:10)
[2021-08-09 07:16] LABS: INR 1.8 (0.9-1.1); Prothrombin Time 17.4 Seconds (9.0-12.0)
[2021-08-09] MEDS: TOBRAMYCIN 300MG NEB INH SCH ×2 (07:19→19:30)
[2021-08-09 07:56] LABS: BUN Creatinine Ratio 53.2 (10-20); Creatinine Clr Calc Pharmacy 61.1 ml/min; Est GFR (African American) 103.8 ml/min; Est GFR (Non-African American) 89.5 ml/min; Magnesium 2.2 mg/dl (1.8-2.4); Phosphorus 1.7 mg/dl (2.5-4.9); Potassium 3.5 mmol/L (3.5-5.1)
[2021-08-09] MEDS: INSULIN ASPART 100 UNITS/ML 3 ML PEN SC SCH ×4 (08:02→20:39)
[2021-08-09] MEDS: SOTALOL HCL 80 MG TAB PO SCH ×2 (08:03→20:39)
[2021-08-09] MEDS: guaiFENesin 600 MG TABCR PO SCH ×2 (08:03→20:39)
[2021-08-09] MEDS: DOXYCYCLINE HYCLATE 100 MG CAP PO SCH ×2 (08:03→20:39)
[2021-08-09] MEDS: amLODIPine BESYLATE 5 MG TAB PO SCH (08:04)
[2021-08-09] MEDS: UMECLIDINIUM/VILANTEROL 62.5/25MCG 7 PUFFS/INHALER INH SCH (08:04)
[2021-08-09] MEDS: INSULIN GLARGINE SOLOSTAR 100 UNITS/ML 3 ML PEN SC SCH (08:04)
[2021-08-09] MEDS: predniSONE 10 MG TABLET PO SCH (08:04)
[2021-08-09] MEDS: FLUTICASONE/VILANTEROL 100/25MCG 14 PUFFS/INHALER INH SCH (08:05)
[2021-08-09] MEDS: CEFEPIME 2,000 MG in SYRINGE 0 ML IV SCH ×2 (08:07→17:37)
[2021-08-09] MEDS: ASPIRIN 81 MG CHEW PO SCH (08:07)
[2021-08-09] MEDS ORDERED: POTASSIUM CHLORIDE CRTAB 20 MEQ TABCR PO STA (09:47)
[2021-08-09] MEDS ORDERED: SODIUM PHOSPHATE 3 MMOL/1 ML INFUSION IV STA (09:47)
--- NOTE | 2021-08-09 09:50 | Hospitalist Progress Note ---
Date of Service August 09, 2021 Assessment & Plan (1) Sepsis: (2) Acute and chronic respiratory failure with hypoxia: (3) COPD exacerbation: (4) Pneumonia: Plan: 81 yo F w/ hx of chronic hypoxemic respiratory failure on 3.5 L of oxygen secondary to COPD and emphysema, insulin-dependent T2DM, PAF anticoagulated on warfarin and rhythm controlled with sotalol, HTN, pulmonary hypertension, history of left breast CA who presents secondary to worsening shortness of breath over the last 2 weeks. Met SIRS/sepsis criteria on admission secondary to tachycardia, leukocytosis and tachypnea. Source: Likely pulmonary in setting of pneumonia and COPD exacerbation Urine culture - mixed jarrell blood culture- negative Received IV cefepime and oral doxy in ED, patient with history of colonization of Pseudomonas and Aspergillus Sepsis Acute on chronic respiratory failure with hypoxia COPD exacerbation Pneumonia Met SIRS/sepsis criteria on admission secondary to tachycardia, leukocytosis and tachypnea. CXR showed Subtle interstitial thickening and possible mild bibasilar opacities. weaned off BiPAP to 5 L Continue IV cefepime and oral doxy IV steroids transitioned to p.o. prednisone 30 mg daily Sputum culture - positive for Aspergillus species, Pseudomonas #2 08/08 - Started inhaled tobramycin for 28-day cycles (given + Pseudomonas)- however now sensitivities are available, Pseudomonas resistant to tobramycin, pulmonary medicine aware, ID consulted Avoid quinolone and azithromycin while on sotalol treatment Continue pulmonary toilet with nebs, flutter valve, spirometer Pulmonary medicine consulted (patient follows with Dr. Ramsey as outpatient) JESSA Bowles consulted - appreciate their input New LBBB QT prolongation EKG compared to prior 04/2020 with new evidence today of LBBB EKG with QTC 502 Cardiology following ECHO showed no LV wall motion abnormality. Ejection fraction 55 to 60% Will continue to avoid QT meds Ok with cardiology to continue sotalol Insulin-dependent T2DM Last A1c 7.2 on 06/29/2021 Lantus/NovoLog per protocol Continue to hold Metformin Pharmacy on board for glycemic management Paroxysmal atrial fibrillation Supratherapeutic INR Continue sotalol Coumadin resumed, goal INR 2-3 Continue monitor PT/INR HTN Continue amlodipine Hold lisinopril/hydrochlorothiazide in setting of hyponatremia and mild dehydration BP stable Hyponatremia Na 129 on 08/04 Possible related to HCTZ HCTZ on hold Continue monitor BMP Current Na 138 (08/08) Hypercalcemia Corrected calcium 11.7 Continue to Hold calcium supplement calcium normalized DVT prophylaxis: Coumadin resumed Dispo: PCU PCP: Dr. Beck FULL CODE Admission and Anticipated Discharge Date Admission Date: August 04, 2021 Subjective Pt was seen and examined for follow up of SOB Sitting up in a chair, in no acute distress Yesterday she started to have brown sputum again Sputum culture positive for Aspergillus, Pseudomonas #2, starting inh. tobramycin (however sens. now available and resistant to tobra) Currently she is on 3-4 L NC oxygen supplement(baseline) She also reports difficulty with hearing for several weeks, and is worried that this is secondary to her Aspergillus infection Denies any chest pain, palpitation, fever. Pulmonary medicine aware, ID consulted Also, pt on sotalol - reviewed w/ cardiology - not recommending any fluoroquinolones Review of Systems Review of Systems: All systems reviewed & are unremarkable except as noted in Subjective Physical Exam Physical Exam: General- elderly F in No acute distress Head- atraumatic Eyes- PERRL, EOMI, ENT- oropharynx clear Neck- supple, no JVD Lungs- + diffuse rhonchi, no wheezing Heart- regular rhythm; no murmur Abdomen- normal bowel sounds, soft, nontender Extremities- no calf tenderness, moves extremities Neuro- alert, oriented x 3; PERRL, EOMI; no facial palsy; no dysarthria, moves extremities Skin- warm & dry Results & Data Results & Data ([facility]) Vital Signs (Past 12 Hours) Vital Signs Temp Pulse Pulse Resp BP Pulse Ox 08/09/21 08:18 36.5 C 60 16 131/67 95 08/09/21 07:15 72 20 91 08/09/21 07:00 96 H 08/09/21 04:20 36.5 C 79 19 128/62 99 08/08/21 23:29 36.4 C L 73 20 151/73 H 97 08/08/21 22:50 77 Laboratory Results 08/09/21 08/09/21 08/09/21 Range/Units 07:39 06:36 06:36 WBC 14.20 H (4.8-10.8) K/uL RBC 4.08 L (4.2-5.4) M/uL Hgb 10.6 L (12.0-16.0) g/dL Hct 34.4 L (37-47) % MCV 84.3 (80-100) fL MCH 26.0 (25-34) pg MCHC 30.8 L (32-36) g/dL RDW Std Deviation 47.0 H (36.4-46.3) fL RDW Coeff of Derek 15.3 H (11.5-14.5) % Plt Count 557 H (130-400) K/uL MPV 10.2 (7.4-10.4) fL PT (9.0-12.0) Seconds INR (0.9-1.1) Sodium 136 (136-145) mmol/L Potassium 3.5 (3.5-5.1) mmol/L Chloride 102 (98-107) mmol/L Carbon Dioxide 28 (21-32) mmol/L Anion Gap 6.0 (3-11) BUN 27 H (7-18) mg/dl Creatinine 0.51 L (0.6-1.2) mg/dl Est Cr Clr Drug Dosing 61.1 ml/min Est GFR ( Amer) 103.8 ml/min Est GFR (Non-Af Amer) 89.5 ml/min BUN/Creatinine Ratio 53.2 H (10-20) Glucose 116 H (70-99) mg/dl POC Glucose 105 H (70-99) mg/dl Calcium 9.0 (8.5-10.1) mg/dl Phosphorus 1.7 L (2.5-4.9) mg/dl Magnesium 2.2 (1.8-2.4) mg/dl 08/09/21 08/08/21 08/08/21 Range/Units 06:36 20:37 16:02 WBC (4.8-10.8) K/uL RBC (4.2-5.4) M/uL Hgb (12.0-16.0) g/dL Hct (37-47) % MCV (80-100) fL MCH (25-34) pg MCHC (32-36) g/dL RDW Std Deviation (36.4-46.3) fL RDW Coeff of Derek (11.5-14.5) % Plt Count (130-400) K/uL MPV (7.4-10.4) fL PT 17.4 H (9.0-12.0) Seconds INR 1.8 H (0.9-1.1) Sodium (136-145) mmol/L Potassium (3.5-5.1) mmol/L Chloride (98-107) mmol/L Carbon Dioxide (21-32) mmol/L Anion Gap (3-11) BUN (7-18) mg/dl Creatinine (0.6-1.2) mg/dl Est Cr Clr Drug Dosing ml/min Est GFR ( Amer) ml/min Est GFR (Non-Af Amer) ml/min BUN/Creatinine Ratio (10-20) Glucose (70-99) mg/dl POC Glucose 150 H 170 H (70-99) mg/dl Calcium (8.5-10.1) mg/dl Phosphorus (2.5-4.9) mg/dl Magnesium (1.8-2.4) mg/dl 08/08/21 Range/Units 11:29 WBC (4.8-10.8) K/uL RBC (4.2-5.4) M/uL Hgb (12.0-16.0) g/dL Hct (37-47) % MCV (80-100) fL MCH (25-34) pg MCHC (32-36) g/dL RDW Std Deviation (36.4-46.3) fL RDW Coeff of Derek (11.5-14.5) % Plt Count (130-400) K/uL MPV (7.4-10.4) fL PT (9.0-12.0) Seconds INR (0.9-1.1) Sodium (136-145) mmol/L Potassium (3.5-5.1) mmol/L Chloride (98-107) mmol/L Carbon Dioxide (21-32) mmol/L Anion Gap (3-11) BUN (7-18) mg/dl Creatinine (0.6-1.2) mg/dl Est Cr Clr Drug Dosing ml/min Est GFR ( Amer) ml/min Est GFR (Non-Af Amer) ml/min BUN/Creatinine Ratio (10-20) Glucose (70-99) mg/dl POC Glucose 155 H (70-99) mg/dl Calcium (8.5-10.1) mg/dl Phosphorus (2.5-4.9) mg/dl Magnesium (1.8-2.4) mg/dl Medications Administered Current Inpatient Medications Acetaminophen (Acetaminophen 325 Mg Tab) 650 mg PO Q4H PRN PRN Reason: Pain or Fever Stop: 09/03/21 19:59 Al Hydrox/Mg Hydrox/Simethicone (Aluminum/Magnesium Susp 30 Ml Udc) 15 ml PO Q4H PRN PRN Reason: Dyspepsia Stop: 09/03/21 19:59 Last Admin: 08/05/21 02:45 Dose: 15 ml Documented by: Albuterol (Albuterol Hfa 8 Gm Inhaler) 2 puffs INH Q4 PRN; Protocol PRN Reason: cough,sob,wheezing Stop: 09/03/21 19:59 Albuterol (Albut/Ipratrop 3mg/0.5mg Neb 3 Ml Vial) 3 ml INH QIDR JOHN Stop: 09/03/21 20:59 Last Admin: 08/09/21 07:15 Dose: 3 ml Documented by: Amlodipine Besylate (Amlodipine Besylate 5 Mg Tab) 5 mg PO DAILY JOHN Stop: 09/04/21 08:59 Last Admin: 08/09/21 08:04 Dose: 5 mg Documented by: Aspirin (Aspirin 81 Mg Chew) 81 mg PO DAILY JOHN Stop: 09/04/21 08:59 Last Admin: 08/09/21 08:07 Dose: 81 mg Documented by: Dextrose (Dextrose 50% 50 Ml Syringe) 25 - 50 ml IV UD PRN; Protocol PRN Reason: Hypoglycemia Protocol Stop: 09/03/21 19:59 Doxycycline Hyclate (Doxycycline Hyclate 100 Mg Cap) 100 mg PO BID JOHN Stop: 08/11/21 20:59 Last Admin: 08/09/21 08:03 Dose: 100 mg Documented by: Fluticasone/Vilanterol (Fluticasone/Vilanterol 100/25mcg 14 Puffs/Inhaler) 1 puffs INH DAILY JOHN Stop: 09/04/21 16:59 Last Admin: 08/09/21 08:05 Dose: 1 puffs Documented by: Glucagon (Glucagon For Inj 1 Mg Vial) 1 mg SQ UD PRN; Protocol PRN Reason: Hypoglycemia Protocol Stop: 09/03/21 19:59 Glucose (Glucose 10 Tabs/Tube) 4 - 8 tabs PO UD PRN; Protocol PRN Reason: Hypoglycemia Protocol Stop: 09/03/21 19:59 Glucose (Glucose 40% Gel 15 Gm Tube) 15 - 30 gm PO UD PRN; Protocol PRN Reason: Hypoglycemia Protocol Stop: 09/03/21 19:59 Guaifenesin (Guaifenesin 600 Mg Tabcr) 1,200 mg PO Q12 JOHN Stop: 09/03/21 20:59 Last Admin: 08/09/21 08:03 Dose: 1,200 mg Documented by: Promethazine HCl 6.25 mg/ (Sodium Chloride) 50.25 mls @ 201 mls/hr IV Q6H PRN PRN Reason: Nausea And Vomiting Stop: 09/03/21 19:59 Cefepime HCl 2,000 mg/ Syringe 20 mls @ 5 mls/min IV Q8H JOHN; Protocol Stop: 08/11/21 15:59 Last Admin: 08/09/21 08:07 Dose: 5 mls/min Documented by: Insulin Aspart (Insulin Aspart 100 Units/Ml 3 Ml Pen) 0 units SC ACHS [facility]; Pro tocol Stop: 09/03/21 20:59 Last Admin: 08/09/21 08:02 Dose: 11 units Documented by: Insulin Glargine (Insulin Glargine Solostar 100 Units/Ml 3 Ml Pen) 15 units SC DAILY [facility]; Protocol Stop: 09/07/21 08:59 Last Admin: 08/09/21 08:04 Dose: 15 units Documented by: Magnesium Hydroxide (Magnesium Hydroxide Susp 30 Ml Udc) 30 ml PO Q12H PRN PRN Reason: Constipation Stop: 09/03/21 19:59 Miscellaneous (Carbohydrates For Hypoglycemia ) 15 - 30 gm PO UD PRN PRN Reason: Hypoglycemia Protocol Stop: 09/03/21 19:59 Miscellaneous Information (Pharmacy Glycemic Mgmt Consult) 1 ea N/A UD PRN PRN Reason: Consult Stop: 09/03/21 19:59 Polyethylene Glycol (Polyethylene (Miralax) 17 Gm Pack) 17 gm PO DAILY PRN PRN Reason: Constipation Stop: 09/03/21 19:59 Potassium Chloride (Potassium Chloride Crtab 20 Meq Tabcr) 40 meq PO NOW STA Stop: 08/09/21 09:48 Prednisone (Prednisone 10 Mg Tablet) 30 mg PO DAILY JOHN Stop: 09/06/21 08:59 Last Admin: 08/09/21 08:04 Dose: 30 mg Documented by: Sodium Phosphate (Sodium Phosphate 3 Mmol/1 Ml Infusion) 12 mmol IV NOW STA Stop: 08/09/21 09:48 Sotalol HCl (Sotalol Hcl 80 Mg Tab) 80 mg PO Q12 [facility] Stop: 09/03/21 20:59 Last Admin: 08/09/21 08:03 Dose: 80 mg Documented by: Tobramycin Sulfate (Tobramycin 300mg Neb) 300 mg INH BIDR [facility] Stop: 09/05/21 07:01 Last Admin: 08/09/21 07:19 Dose: 300 mg Documented by: Umeclidinium/Vilanterol (Umeclidinium/Vilanterol 62.5/25mcg 7 Puffs/Inhaler) 1 puffs INH DAILY [facility]; Protocol Stop: 09/04/21 08:59 Last Admin: 08/09/21 08:04 Dose: 1 puffs Documented by: Warfarin Sodium (Warfarin Sod 2.5 Mg Tab) 2.5 mg PO DAILY@1600 [facility] Stop: 09/06/21 15:59 Last Admin: 08/08/21 16:59 Dose: 2.5 mg Documented by:
[2021-08-09] MEDS ORDERED: SODIUM PHOSPHATE 12 MMOL in SODIUM CHLORIDE 0.9% 250 ML IV ONE (10:30)
[2021-08-09] MEDS: POT PHOSPHATE MONOBASIC W/ SOD TAB PO SCH ×3 (13:29→20:39)
[2021-08-09] MEDS: WARFARIN SOD 2.5 MG TAB PO SCH (17:37)
--- NOTE | 2021-08-09 18:05 | Cardiology Progress Note ---
Date of Service August 08, 2021 Assessment & Plan Admission and Anticipated Discharge Date Admission Date: August 04, 2021 Subjective Patient seen 08/08/2021, had been resting comfortably at that time. Sinus rhythm noted on telemetry. No changes from a cardiac standpoint recommended. Results & Data ([facility]) Vital Signs (Past 12 Hours) Vital Signs Temp Pulse Pulse Resp BP Pulse Ox 08/08/21 11:38 36.6 C 89 18 149/63 H 97 08/08/21 10:38 80 20 96 08/08/21 07:58 37.2 C 87 18 121/65 94 08/08/21 07:09 79 20 96 08/08/21 03:51 36.4 C L 79 18 123/68 99 08/08/21 00:33 77
--- NOTE | 2021-08-09 18:11 | Cardiology Progress Note ---
Date of Service August 09, 2021 Assessment & Plan (1) COPD exacerbation: (2) Acute and chronic respiratory failure with hypoxia: (3) Paroxysmal atrial fibrillation: Plan: Patient well-known to the undersigned as I have followed her as an outpatient since her admission in 2013. LVEF remains normal. Do not believe CHF is contributing to SOB. INR 1.8. Continue coumadin, goal INR 23. Continue sotalol. Pulmonary input noted and appreciate , however, would AVOID treatment with LEVAQUIN (an also avoid azithromycin) due to sotalol treatment. Infectious disease consulted given findings of Aspergillus sputum culture. Infectious disease note reviewed, with noted recommendation of sputum fungal culture which should be obtained. ID recommended continuing cefepime IV through 08/11/2021 and doxycycline through 08/11/2021. Admission and Anticipated Discharge Date Admission Date: August 04, 2021 Subjective Patient seen in cardiology follow-up. Remains on 4 L nasal cannula, pulse oximetry 96%, significant dyspnea with conversation noted. Her daughter was visiting her at the bedside. Patient is in good spirits. Telemetry reveals ongoing sinus rhythm in the range of 70 to 80 bpm. Physical Exam Physical Exam: Temp Pulse Resp BP Pulse Ox 36.8 C 62 18 129/68 96 08/09/21 16:00 08/09/21 16:00 08/09/21 16:00 08/09/21 16:00 08/09/21 16:00 Constitutional: + ill appearing and + thin Respiratory: + labored breathing and + tachypneic; no retractions and no cough Auscultation: no crackles, no rales and no rhonchi Cardiovascular: RRR, no murmur, no edema Gastrointestinal (Abdomen): normal bowel sounds, soft, nontender, no hepatosplenomegaly Neurologic: PERRL, EOMI, accommodation nl, no face palsy, no dysarthria Results & Data ([facility]) Vital Signs (Past 12 Hours) Vital Signs Temp Pulse Resp BP Pulse Ox 08/09/21 16:00 36.8 C 62 18 129/68 96 08/09/21 14:25 67 18 97 08/09/21 12:07 36.4 C L 59 L 18 124/70 95 08/09/21 10:46 88 25 H 96 08/09/21 08:18 36.5 C 60 16 131/67 95 08/09/21 07:15 72 20 91 08/09/21 07:00 96 H
[2021-08-10] MEDS: CEFEPIME 2,000 MG in SYRINGE 0 ML IV SCH ×4 (00:03→23:52)
[2021-08-10 06:17] LABS: Hematocrit (blood only) 34.7 % (37-47); Hemoglobin 10.7 g/dL (12.0-16.0); Mean Corpuscular Hemoglobin 25.8 pg (25-34); Mean Corpuscular Hgb Conc 30.8 g/dL (32-36); Mean Corpuscular Volume 83.8 fL (80-100); Mean Platelet Volume 10.3 fL (7.4-10.4); Platelet Count 596 K/uL (130-400); RDW Coefficient of Variation 15.6 % (11.5-14.5); RDW Standard Deviation 47.9 fL (36.4-46.3); Red Blood Count 4.14 M/uL (4.2-5.4); White Blood Count 15.44 K/uL (4.8-10.8)
[2021-08-10 06:52] LABS: BUN Creatinine Ratio 60.8 (10-20); Calcium 8.7 mg/dl (8.5-10.1); Creatinine Clr Calc Pharmacy 72.5 ml/min; Est GFR (African American) 109.8 ml/min; Est GFR (Non-African American) 94.7 ml/min; Potassium 3.8 mmol/L (3.5-5.1)
[2021-08-10 06:54] LABS: Phosphorus 2.4 mg/dl (2.5-4.9)
[2021-08-10] MEDS: ALBUT/IPRATROP 3MG/0.5MG NEB 3 ML VIAL INH SCH ×4 (07:09→19:58)
[2021-08-10] MEDS: TOBRAMYCIN 300MG NEB INH SCH ×3 (07:10→19:58)
[2021-08-10] MEDS: INSULIN ASPART 100 UNITS/ML 3 ML PEN SC SCH ×4 (08:55→21:23)
[2021-08-10] MEDS: guaiFENesin 600 MG TABCR PO SCH ×2 (08:58→21:22)
[2021-08-10] MEDS: predniSONE 10 MG TABLET PO SCH (08:58)
[2021-08-10] MEDS: amLODIPine BESYLATE 5 MG TAB PO SCH (08:58)
[2021-08-10] MEDS: DOXYCYCLINE HYCLATE 100 MG CAP PO SCH ×2 (08:59→21:23)
[2021-08-10] MEDS: FLUTICASONE/VILANTEROL 100/25MCG 14 PUFFS/INHALER INH SCH (08:59)
[2021-08-10] MEDS: SOTALOL HCL 80 MG TAB PO SCH ×2 (08:59→21:22)
[2021-08-10] MEDS: POT PHOSPHATE MONOBASIC W/ SOD TAB PO SCH ×4 (08:59→21:22)
[2021-08-10] MEDS: UMECLIDINIUM/VILANTEROL 62.5/25MCG 7 PUFFS/INHALER INH SCH (09:00)
[2021-08-10] MEDS: INSULIN GLARGINE SOLOSTAR 100 UNITS/ML 3 ML PEN SC SCH (09:01)
[2021-08-10] MEDS: ASPIRIN 81 MG CHEW PO SCH (09:16)
--- NOTE | 2021-08-10 13:50 | Pharmacy Report ---
Pharmacy Glycemic Short Note 2 - Date of Service August 10, 2021 - Glycemic Short BSG Results (Last 24 hours): 08/09/21 08/09/21 08/10/21 16:15 20:05 05:41 Glucose 93 POC Glucose 245 H 176 H 08/10/21 08/10/21 07:14 11:33 Glucose POC Glucose 91 154 H OUTPATIENT ANTIDIABETIC REGIMEN: * Lantus 12 units SC AM * Metformin 1000 mg PO BIDM * HbA1c = 8.0% (08/06/21) ASSESSMENT: 08/09: * Patient received total of 39 units of insulin yesterday, of which 15 units were Lantus * Fasting BSG 91 mg/dL - each day fasting BSG has been trending down, may scale back to home dose of 12 units * Continue same CF/CR for now 08/08: * Salome received a total of 55 units of insulin yesterday (27 units Lantus + 28 units Novolog) * BSGs were well controlled yesterday: [phone] mg/dL * Fasting BSG well controlled at 79 mg/dL this AM * Had initially decreased patient to 12 units of Lantus BID starting last evening. Given the significant trend down in fasting BSG today, will transition patient back to once daily Lantus to mimic home regimen. Will still use increased dose of 15 units daily to account for steroids. * No change to Novolog. 08/06: * 81 yo F admitted secondary to COPD exacerbation. Pharmacy has been consulted to assist with inpatient glycemic management. * Received a total of 69 units of insulin yesterday (30 units basal + 39 units bolus) * BSGs were uncontrolled: [phone] mg/dL * Fasting BSG was 222 mg/dL - well above goal * Will start 15 units of Lantus BID today to attempt to cover steroids. Remains on Solumedrol 20 mg IV every 8 hours. * Tightened Novolog parameters as well. * Significant drop in BSG at lunch to 124 mg/dL so may need to loosen Novolog throughout the day. PLAN FOR INPATIENT GLYCEMIC CONTROL: * Hold outpatient oral diabetes medications * Basal insulin - decreased * Lantus 12 units SC daily * Bolus insulin * NovoLog per scale ACHS or Q6hrs while NPO * Goal Range: Low 110 mg/dL - High 140 mg/dL * Correction Factor: 20 mg/dL/unit * Nutritional / Prandial insulin per carb ratio of 1 unit per 6 grams CHO consumed PLAN FOR DISCHARGE: * HbA1c was 8% from this admission which is at goal given this patient's age and comorbidities. No changes to outpatient regimen upon discharge.
[2021-08-10] MEDS: WARFARIN SOD 2.5 MG TAB PO SCH (16:33)
--- NOTE | 2021-08-10 17:07 | Hospitalist Progress Note ---
Date of Service August 10, 2021 Assessment & Plan (1) Sepsis: (2) Acute and chronic respiratory failure with hypoxia: (3) COPD exacerbation: (4) Pneumonia: Plan: 81 yo F w/ hx of chronic hypoxemic respiratory failure on 3.5 L of oxygen secondary to COPD and emphysema, insulin-dependent T2DM, PAF anticoagulated on warfarin and rhythm controlled with sotalol, HTN, pulmonary hypertension, history of left breast CA who presents secondary to worsening shortness of breath over the last 2 weeks. Met SIRS/sepsis criteria on admission secondary to tachycardia, leukocytosis and tachypnea. Source: Likely pulmonary in setting of pneumonia and COPD exacerbation Urine culture - mixed jarrell blood culture- negative Received IV cefepime and oral doxy in ED, patient with history of colonization of Pseudomonas and Aspergillus Sepsis Acute on chronic respiratory failure with hypoxia COPD exacerbation Pneumonia Met SIRS/sepsis criteria on admission secondary to tachycardia, leukocytosis and tachypnea. CXR showed Subtle interstitial thickening and possible mild bibasilar opacities. weaned off BiPAP to 5 L Continue IV cefepime and oral doxy IV steroids transitioned to p.o. prednisone 30 mg daily Sputum culture - positive for Aspergillus species, Pseudomonas #2 08/08 - Started inhaled tobramycin for 28-day cycles (given + Pseudomonas)- however now sensitivities are available, Pseudomonas resistant to tobramycin, pulmonary medicine aware, ID consulted Avoid quinolone and azithromycin while on sotalol treatment Continue pulmonary toilet with nebs, flutter valve, spirometer Pulmonary medicine consulted (patient follows with Dr. Ramsey as outpatient) JESSA Bowles consulted - appreciate their input Sputum culture re- collected, Aspergillus antigen ordered Pulmonary plans to follow-up as outpatient in 2 weeks New LBBB QT prolongation EKG compared to prior 04/2020 with new evidence today of LBBB EKG with QTC 502 Cardiology following ECHO showed no LV wall motion abnormality. Ejection fraction 55 to 60% Will continue to avoid QT meds Ok with cardiology to continue sotalol Insulin-dependent T2DM Last A1c 7.2 on 06/29/2021 Lantus/NovoLog per protocol Continue to hold Metformin Pharmacy on board for glycemic management Paroxysmal atrial fibrillation Supratherapeutic INR Continue sotalol Coumadin resumed, goal INR 2-3 Continue monitor PT/INR HTN Continue amlodipine Hold lisinopril/hydrochlorothiazide in setting of hyponatremia and mild dehydration BP stable Hyponatremia Na 129 on 08/04 Possible related to HCTZ HCTZ on hold Continue monitor BMP Na 138 (08/08) Hypercalcemia Corrected calcium 11.7 Continue to Hold calcium supplement calcium normalized DVT prophylaxis: Coumadin resumed Dispo: PCU PCP: Dr. Beck FULL CODE Admission and Anticipated Discharge Date Admission Date: August 04, 2021 Subjective Pt was seen and examined for follow up of SOB Sitting up in a chair, in no acute distress Sputum culture positive for Aspergillus, Pseudomonas #2 Currently she is on 3-4 L [place] oxygen supplement(baseline) Denies any chest pain, palpitation, fever. Pulmonary medicine aware, ID consulted Also, pt on sotalol - reviewed w/ cardiology - not recommending any fluoroquinolones Review of Systems Review of Systems: All systems reviewed & are unremarkable except as noted in Subjective Physical Exam Physical Exam: General- elderly F in No acute distress Head- atraumatic Eyes- PERRL, EOMI, ENT- oropharynx clear Neck- supple, no JVD Lungs- + diffuse rhonchi, no wheezing Heart- regular rhythm; no murmur Abdomen- normal bowel sounds, soft, nontender Extremities- no calf tenderness, moves extremities Neuro- alert, oriented x 3; PERRL, EOMI; no facial palsy; no dysarthria, moves extremities Skin- warm & dry Results & Data Results & Data ([facility]) Vital Signs (Past 12 Hours) Vital Signs Temp Pulse Pulse Resp BP Pulse Ox 08/10/21 16:08 91 H 08/10/21 15:54 36.8 C 75 17 128/66 99 08/10/21 14:29 94 H 18 96 08/10/21 12:06 36.7 C 96 H 21 149/72 H 94 08/10/21 10:41 90 20 94 08/10/21 10:23 93 H 20 94 08/10/21 09:39 64 08/10/21 07:59 36.7 C 85 18 123/67 96 08/10/21 07:11 86 20 94 Laboratory Results 08/10/21 08/10/21 08/10/21 Range/Units 16:22 11:47 11:33 WBC (4.8-10.8) K/uL RBC (4.2-5.4) M/uL Hgb (12.0-16.0) g/dL Hct (37-47) % MCV (80-100) fL MCH (25-34) pg MCHC (32-36) g/dL RDW Std Deviation (36.4-46.3) fL RDW Coeff of Derek (11.5-14.5) % Plt Count (130-400) K/uL MPV (7.4-10.4) fL Sodium (136-145) mmol/L Potassium (3.5-5.1) mmol/L Chloride (98-107) mmol/L Carbon Dioxide (21-32) mmol/L Anion Gap (3-11) BUN (7-18) mg/dl Creatinine (0.6-1.2) mg/dl Est Cr Clr Drug Dosing ml/min Est GFR ( Amer) ml/min Est GFR (Non-Af Amer) ml/min BUN/Creatinine Ratio (10-20) Glucose (70-99) mg/dl POC Glucose 166 H 154 H (70-99) mg/dl Calcium (8.5-10.1) mg/dl Phosphorus (2.5-4.9) mg/dl Magnesium (1.8-2.4) mg/dl A. galactomannan Ag Pending A. galactomannan Ag Idx Pending 08/10/21 08/10/21 08/10/21 Range/Units 07:14 05:41 05:41 WBC 15.44 H (4.8-10.8) K/uL RBC 4.14 L (4.2-5.4) M/uL Hgb 10.7 L (12.0-16.0) g/dL Hct 34.7 L (37-47) % MCV 83.8 (80-100) fL MCH 25.8 (25-34) pg MCHC 30.8 L (32-36) g/dL RDW Std Deviation 47.9 H (36.4-46.3) fL RDW Coeff of Derek 15.6 H (11.5-14.5) % Plt Count 596 H (130-400) K/uL MPV 10.3 (7.4-10.4) fL Sodium 139 (136-145) mmol/L Potassium 3.8 (3.5-5.1) mmol/L Chloride 104 (98-107) mmol/L Carbon Dioxide 29 (21-32) mmol/L Anion Gap 6.0 (3-11) BUN 26 H (7-18) mg/dl Creatinine 0.43 L (0.6-1.2) mg/dl Est Cr Clr Drug Dosing 72.5 ml/min Est GFR ( Amer) 109.8 ml/min Est GFR (Non-Af Amer) 94.7 ml/min BUN/Creatinine Ratio 60.8 H (10-20) Glucose 93 (70-99) mg/dl POC Glucose 91 (70-99) mg/dl Calcium 8.7 (8.5-10.1) mg/dl Phosphorus 2.4 L (2.5-4.9) mg/dl Magnesium 2.0 (1.8-2.4) mg/dl A. galactomannan Ag A. galactomannan Ag Idx 08/09/21 Range/Units 20:05 WBC (4.8-10.8) K/uL RBC (4.2-5.4) M/uL Hgb (12.0-16.0) g/dL Hct (37-47) % MCV (80-100) fL MCH (25-34) pg MCHC (32-36) g/dL RDW Std Deviation (36.4-46.3) fL RDW Coeff of Derek (11.5-14.5) % Plt Count (130-400) K/uL MPV (7.4-10.4) fL Sodium (136-145) mmol/L Potassium (3.5-5.1) mmol/L Chloride (98-107) mmol/L Carbon Dioxide (21-32) mmol/L Anion Gap (3-11) BUN (7-18) mg/dl Creatinine (0.6-1.2) mg/dl Est Cr Clr Drug Dosing ml/min Est GFR ( Amer) ml/min Est GFR (Non-Af Amer) ml/min BUN/Creatinine Ratio (10-20) Glucose (70-99) mg/dl POC Glucose 176 H (70-99) mg/dl Calcium (8.5-10.1) mg/dl Phosphorus (2.5-4.9) mg/dl Magnesium (1.8-2.4) mg/dl A. galactomannan Ag A. galactomannan Ag Idx Medications Administered Current Inpatient Medications Acetaminophen (Acetaminophen 325 Mg Tab) 650 mg PO Q4H PRN PRN Reason: Pain or Fever Stop: 09/03/21 19:59 Al Hydrox/Mg Hydrox/Simethicone (Aluminum/Magnesium Susp 30 Ml Udc) 15 ml PO Q4H PRN PRN Reason: Dyspepsia Stop: 09/03/21 19:59 Last Admin: 08/05/21 02:45 Dose: 15 ml Documented by: Albuterol (Albuterol Hfa 8 Gm Inhaler) 2 puffs INH Q4 PRN; Protocol PRN Reason: cough,sob,wheezing Stop: 09/03/21 19:59 Albuterol (Albut/Ipratrop 3mg/0.5mg Neb 3 Ml Vial) 3 ml INH QIDR JOHN Stop: 09/03/21 20:59 Last Admin: 08/10/21 14:28 Dose: 3 ml Documented by: Amlodipine Besylate (Amlodipine Besylate 5 Mg Tab) 5 mg PO DAILY [facility] Stop: 09/04/21 08:59 Last Admin: 08/10/21 08:58 Dose: 5 mg Documented by: Aspirin (Aspirin 81 Mg Chew) 81 mg PO DAILY JOHN Stop: 09/04/21 08:59 Last Admin: 08/10/21 09:16 Dose: 81 mg Documented by: Dextrose (Dextrose 50% 50 Ml Syringe) 25 - 50 ml IV UD PRN; Protocol PRN Reason: Hypoglycemia Protocol Stop: 09/03/21 19:59 Doxycycline Hyclate (Doxycycline Hyclate 100 Mg Cap) 100 mg PO BID [facility] Stop: 08/11/21 20:59 Last Admin: 08/10/21 08:59 Dose: 100 mg Documented by: Fluticasone/Vilanterol (Fluticasone/Vilanterol 100/25mcg 14 Puffs/Inhaler) 1 puffs INH DAILY JOHN Stop: 09/04/21 16:59 Last Admin: 08/10/21 08:59 Dose: 1 puffs Documented by: Glucagon (Glucagon For Inj 1 Mg Vial) 1 mg SQ UD PRN; Protocol PRN Reason: Hypoglycemia Protocol Stop: 09/03/21 19:59 Glucose (Glucose 10 Tabs/Tube) 4 - 8 tabs PO UD PRN; Protocol PRN Reason: Hypoglycemia Protocol Stop: 09/03/21 19:59 Glucose (Glucose 40% Gel 15 Gm Tube) 15 - 30 gm PO UD PRN; Protocol PRN Reason: Hypoglycemia Protocol Stop: 09/03/21 19:59 Guaifenesin (Guaifenesin 600 Mg Tabcr) 1,200 mg PO Q12 [facility] Stop: 09/03/21 20:59 Last Admin: 08/10/21 08:58 Dose: 1,200 mg Documented by: Promethazine HCl 6.25 mg/ (Sodium Chloride) 50.25 mls @ 201 mls/hr IV Q6H PRN PRN Reason: Nausea And Vomiting Stop: 09/03/21 19:59 Cefepime HCl 2,000 mg/ Syringe 20 mls @ 5 mls/min IV Q8H JOHN; Protocol Stop: 08/11/21 15:59 Last Admin: 08/10/21 16:32 Dose: 5 mls/min Documented by: Insulin Aspart (Insulin Aspart 100 Units/Ml 3 Ml Pen) 0 units SC ACHS [facility]; Protocol Stop: 09/03/21 20:59 Last Admin: 08/10/21 12:19 Dose: 10 units Documented by: Insulin Glargine (Insulin Glargine Solostar 100 Units/Ml 3 Ml Pen) 12 units SC DAILY [facility]; Protocol Stop: 09/09/21 08:59 Last Admin: 08/10/21 09:01 Dose: 12 units Documented by: Magnesium Hydroxide (Magnesium Hydroxide Susp 30 Ml Udc) 30 ml PO Q12H PRN PRN Reason: Constipation Stop: 09/03/21 19:59 Miscellaneous (Carbohydrates For Hypoglycemia ) 15 - 30 gm PO UD PRN PRN Reason: Hypoglycemia Protocol Stop: 09/03/21 19:59 Miscellaneous Information (Pharmacy Glycemic Mgmt Consult) 1 ea N/A UD PRN PRN Reason: Consult Stop: 09/03/21 19:59 Polyethylene Glycol (Polyethylene (Miralax) 17 Gm Pack) 17 gm PO DAILY PRN PRN Reason: Constipation Stop: 09/03/21 19:59 Potassium Phosphate (Pot Phosphate Monobasic W/ Sod Tab) 1 tab PO QID [facility] Stop: 09/08/21 12:59 Last Admin: 08/10/21 12:22 Dose: 1 tab Documented by: Prednisone (Prednisone 10 Mg Tablet) 30 mg PO DAILY [facility] Stop: 09/06/21 08:59 Last Admin: 08/10/21 08:58 Dose: 30 mg Documented by: Sotalol HCl (Sotalol Hcl 80 Mg Tab) 80 mg PO Q12 [facility] Stop: 09/03/21 20:59 Last Admin: 08/10/21 08:59 Dose: 80 mg Documented by: Tobramycin Sulfate (Tobramycin 300mg Neb) 300 mg INH BIDR [facility] Stop: 09/05/21 07:01 Last Admin: 08/10/21 10:40 Dose: 300 mg Documented by: Umeclidinium/Vilanterol (Umeclidinium/Vilanterol 62.5/25mcg 7 Puffs/Inhaler) 1 puffs INH DAILY [facility]; Protocol Stop: 09/04/21 08:59 Last Admin: 08/10/21 09:00 Dose: 1 puffs Documented by: Warfarin Sodium (Warfarin Sod 2.5 Mg Tab) 2.5 mg PO DAILY@1600 [facility] Stop: 09/06/21 15:59 Last Admin: 08/10/21 16:33 Dose: 2.5 mg Documented by:
[2021-08-11 07:39] LABS: Hematocrit (blood only) 34.8 % (37-47); Hemoglobin 10.9 g/dL (12.0-16.0); Mean Corpuscular Hemoglobin 26.4 pg (25-34); Mean Corpuscular Hgb Conc 31.3 g/dL (32-36); Mean Corpuscular Volume 84.3 fL (80-100); Mean Platelet Volume 10.4 fL (7.4-10.4); Platelet Count 627 K/uL (130-400); RDW Coefficient of Variation 15.7 % (11.5-14.5); RDW Standard Deviation 47.7 fL (36.4-46.3); Red Blood Count 4.13 M/uL (4.2-5.4); White Blood Count 18.11 K/uL (4.8-10.8)
--- NOTE | 2021-08-11 08:09 | Hospitalist Progress Note ---
Date of Service August 11, 2021 Assessment & Plan (1) Sepsis: (2) Acute and chronic respiratory failure with hypoxia: (3) COPD exacerbation: (4) Pneumonia: Plan: 81 yo F w/ hx of chronic hypoxemic respiratory failure on 3.5 L of oxygen secondary to COPD and emphysema, insulin-dependent T2DM, PAF anticoagulated on warfarin and rhythm controlled with sotalol, HTN, pulmonary hypertension, history of left breast CA who presents secondary to worsening shortness of breath over the last 2 weeks. Met SIRS/sepsis criteria on admission secondary to tachycardia, leukocytosis and tachypnea. Source: Likely pulmonary in setting of pneumonia and COPD exacerbation Urine culture - mixed jarrell blood culture- negative Received IV cefepime and oral doxy in ED, patient with history of colonization of Pseudomonas and Aspergillus Sepsis Acute on chronic respiratory failure with hypoxia COPD exacerbation Pneumonia Met SIRS/sepsis criteria on admission secondary to tachycardia, leukocytosis and tachypnea. CXR showed Subtle interstitial thickening and possible mild bibasilar opacities. weaned off BiPAP to 5 L Continue IV cefepime and oral doxy IV steroids transitioned to p.o. prednisone 30 mg daily Sputum culture - positive for Aspergillus species, Pseudomonas #2 08/08 - Started inhaled tobramycin for 28-day cycles (given + Pseudomonas)- however now sensitivities are available, Pseudomonas resistant to tobramycin, pulmonary medicine aware, ID consulted, Tobramycin stopped Avoid quinolone and azithromycin while on sotalol treatment Continue pulmonary toilet with nebs, flutter valve, spirometer Pulmonary medicine consulted (patient follows with Dr. Ramsey as outpatient) JESSA Bowles consulted - appreciate their input Sputum culture re- collected -so far showing normal jarrell, Aspergillus antigen - pending Pulmonary plans to follow-up as outpatient in 2 weeks New LBBB QT prolongation EKG compared to prior 04/2020 with new evidence today of LBBB EKG with QTC 502 Cardiology following ECHO showed no LV wall motion abnormality. Ejection fraction 55 to 60% Will continue to avoid QT meds Ok with cardiology to continue sotalol Insulin-dependent T2DM Last A1c 7.2 on 06/29/2021 Lantus/NovoLog per protocol Continue to hold Metformin Pharmacy on board for glycemic management Paroxysmal atrial fibrillation Supratherapeutic INR Continue sotalol Coumadin resumed, goal INR 2-3 Continue monitor PT/INR HTN Continue amlodipine Hold lisinopril/hydrochlorothiazide in setting of hyponatremia and mild dehydration BP stable Hyponatremia Na 129 on 08/04 Possible related to HCTZ HCTZ on hold Continue monitor BMP Na 138 (08/08) Hypercalcemia Corrected calcium 11.7 Continue to Hold calcium supplement calcium normalized DVT prophylaxis: Coumadin resumed Dispo: PCU PCP: Dr. Beck FULL CODE Admission and Anticipated Discharge Date Admission Date: August 04, 2021 Subjective Pt was seen and examined for follow up of SOB Sitting up in a chair, in no acute distress Sputum culture positive for Aspergillus, Pseudomonas #2 Currently she is on 3-4 L [place] oxygen supplement(baseline) Denies any chest pain, palpitation, fever. Pulmonary medicine aware, ID consulted Also, pt on sotalol - reviewed w/ cardiology - not recommending any fluoroquinolones Repeat sputum culture so far shows only normal jarrell, Aspergillus antigen pending Review of Systems Review of Systems: All systems reviewed & are unremarkable except as noted in Subjective Physical Exam Physical Exam: General- elderly F in No acute distress Head- atraumatic Eyes- PERRL, EOMI, ENT- oropharynx clear Neck- supple, no JVD Lungs- + diffuse rhonchi, no wheezing Heart- regular rhythm; no murmur Abdomen- normal bowel sounds, soft, nontender Extremities- no calf tenderness, moves extremities Neuro- alert, oriented x 3; PERRL, EOMI; no facial palsy; no dysarthria, moves extremities Skin- warm & dry Results & Data Results & Data ([facility]) Vital Signs (Past 12 Hours) Vital Signs Temp Pulse Pulse Resp BP Pulse Ox 08/11/21 07:51 84 08/11/21 06:46 36.6 C 89 24 136/71 93 08/11/21 03:14 36.8 C 85 23 123/71 94 08/11/21 02:03 90 24 98 08/10/21 23:55 72 08/10/21 23:11 36.8 C 94 H 23 151/81 H 98 08/10/21 21:21 101 H 155/77 H Medications Administered Current Inpatient Medications Acetaminophen (Acetaminophen 325 Mg Tab) 650 mg PO Q4H PRN PRN Reason: Pain or Fever Stop: 09/03/21 19:59 Al Hydrox/Mg Hydrox/Simethicone (Aluminum/Magnesium Susp 30 Ml Udc) 15 ml PO Q4H PRN PRN Reason: Dyspepsia Stop: 09/03/21 19:59 Last Admin: 08/05/21 02:45 Dose: 15 ml Documented by: Albuterol (Albuterol Hfa 8 Gm Inhaler) 2 puffs INH Q4 PRN; Protocol PRN Reason: cough,sob,wheezing Stop: 09/03/21 19:59 Last Admin: 08/11/21 02:01 Dose: 2 puffs Documented by: Albuterol (Albut/Ipratrop 3mg/0.5mg Neb 3 Ml Vial) 3 ml INH QIDR JOHN Stop: 09/03/21 20:59 Last Admin: 08/10/21 19:58 Dose: 3 ml Documented by: Amlodipine Besylate (Amlodipine Besylate 5 Mg Tab) 5 mg PO DAILY [facility] Stop: 09/04/21 08:59 Last Admin: 08/10/21 08:58 Dose: 5 mg Documented by: Aspirin (Aspirin 81 Mg Chew) 81 mg PO DAILY JOHN Stop: 09/04/21 08:59 Last Admin: 08/10/21 09:16 Dose: 81 mg Documented by: Dextrose (Dextrose 50% 50 Ml Syringe) 25 - 50 ml IV UD PRN; Protocol PRN Reason: Hypoglycemia Protocol Stop: 09/03/21 19:59 Doxycycline Hyclate (Doxycycline Hyclate 100 Mg Cap) 100 mg PO BID [facility] Stop: 08/11/21 20:59 Last Admin: 08/10/21 21:23 Dose: 100 mg Documented by: Fluticasone/Vilanterol (Fluticasone/Vilanterol 100/25mcg 14 Puffs/Inhaler) 1 puffs INH DAILY JOHN Stop: 09/04/21 16:59 Last Admin: 08/10/21 08:59 Dose: 1 puffs Documented by: Glucagon (Glucagon For Inj 1 Mg Vial) 1 mg SQ UD PRN; Protocol PRN Reason: Hypoglycemia Protocol Stop: 09/03/21 19:59 Glucose (Glucose 10 Tabs/Tube) 4 - 8 tabs PO UD PRN; Protocol PRN Reason: Hypoglycemia Protocol Stop: 09/03/21 19:59 Glucose (Glucose 40% Gel 15 Gm Tube) 15 - 30 gm PO UD PRN; Protocol PRN Reason: Hypoglycemia Protocol Stop: 09/03/21 19:59 Guaifenesin (Guaifenesin 600 Mg Tabcr) 1,200 mg PO Q12 [facility] Stop: 09/03/21 20:59 Last Admin: 08/10/21 21:22 Dose: 1,200 mg Documented by: Promethazine HCl 6.25 mg/ (Sodium Chloride) 50.25 mls @ 201 mls/hr IV Q6H PRN PRN Reason: Nausea And Vomiting Stop: 09/03/21 19:59 Cefepime HCl 2,000 mg/ Syringe 20 mls @ 5 mls/min IV Q8H [facility]; Protocol Stop: 08/11/21 15:59 Last Admin: 08/10/21 23:52 Dose: 5 mls/min Documented by: Insulin Aspart (Insulin Aspart 100 Units/Ml 3 Ml Pen) 0 units SC ACHS [facility]; Protocol Stop: 09/03/21 20:59 Last Admin: 08/10/21 21:23 Dose: 5 units Documented by: Insulin Glargine (Insulin Glargine Solostar 100 Units/Ml 3 Ml Pen) 12 units SC DAILY [facility]; Protocol Stop: 09/09/21 08:59 Last Admin: 08/10/21 09:01 Dose: 12 units Documented by: Magnesium Hydroxide (Magnesium Hydroxide Susp 30 Ml Udc) 30 ml PO Q12H PRN PRN Reason: Constipation Stop: 09/03/21 19:59 Miscellaneous (Carbohydrates For Hypoglycemia ) 15 - 30 gm PO UD PRN PRN Reason: Hypoglycemia Protocol Stop: 09/03/21 19:59 Miscellaneous Information (Pharmacy Glycemic Mgmt Consult) 1 ea N/A UD PRN PRN Reason: Consult Stop: 09/03/21 19:59 Polyethylene Glycol (Polyethylene (Miralax) 17 Gm Pack) 17 gm PO DAILY PRN PRN Reason: Constipation Stop: 09/03/21 19:59 Potassium Phosphate (Pot Phosphate Monobasic W/ Sod Tab) 1 tab PO QID [facility] Stop: 09/08/21 12:59 Last Admin: 08/10/21 21:22 Dose: 1 tab Documented by: Prednisone (Prednisone 10 Mg Tablet) 30 mg PO DAILY [facility] Stop: 09/06/21 08:59 Last Admin: 08/10/21 08:58 Dose: 30 mg Documented by: Sotalol HCl (Sotalol Hcl 80 Mg Tab) 80 mg PO Q12 [facility] Stop: 09/03/21 20:59 Last Admin: 08/10/21 21:22 Dose: 80 mg Documented by: Tobramycin Sulfate (Tobramycin 300mg Neb) 300 mg INH BIDR [facility] Stop: 09/05/21 07:01 Last Admin: 08/10/21 19:58 Dose: Not Given Documented by: Umeclidinium/Vilanterol (Umeclidinium/Vilanterol 62.5/25mcg 7 Puffs/Inhaler) 1 puffs INH DAILY [facility]; Protocol Stop: 09/04/21 08:59 Last Admin: 08/10/21 09:00 Dose: 1 puffs Documented by: Warfarin Sodium (Warfarin Sod 2.5 Mg Tab) 2.5 mg PO DAILY@1600 [facility] Stop: 09/06/21 15:59 Last Admin: 08/10/21 16:33 Dose: 2.5 mg Documented by:
[2021-08-11 08:13] LABS: BUN Creatinine Ratio 56.2 (10-20); Calcium 9.4 mg/dl (8.5-10.1); Creatinine Clr Calc Pharmacy 66.3 ml/min; Est GFR (African American) 106.6 ml/min; Potassium 3.9 mmol/L (3.5-5.1)
[2021-08-11 08:25] LABS: INR 1.9 (0.9-1.1); Prothrombin Time 18.3 Seconds (9.0-12.0)
[2021-08-11] MEDS: FLUTICASONE/VILANTEROL 100/25MCG 14 PUFFS/INHALER INH SCH (08:30)
[2021-08-11] MEDS: UMECLIDINIUM/VILANTEROL 62.5/25MCG 7 PUFFS/INHALER INH SCH (08:30)
[2021-08-11] MEDS: guaiFENesin 600 MG TABCR PO SCH ×2 (08:31→20:02)
[2021-08-11] MEDS: SOTALOL HCL 80 MG TAB PO SCH ×2 (08:31→20:02)
[2021-08-11] MEDS: POT PHOSPHATE MONOBASIC W/ SOD TAB PO SCH ×4 (08:31→20:01)
[2021-08-11] MEDS: DOXYCYCLINE HYCLATE 100 MG CAP PO SCH (08:31)
[2021-08-11] MEDS: amLODIPine BESYLATE 5 MG TAB PO SCH (08:31)
[2021-08-11] MEDS: ALBUT/IPRATROP 3MG/0.5MG NEB 3 ML VIAL INH SCH ×4 (08:37→19:30)
[2021-08-11] MEDS: TOBRAMYCIN 300MG NEB INH SCH (08:38)
[2021-08-11] MEDS: INSULIN GLARGINE SOLOSTAR 100 UNITS/ML 3 ML PEN SC SCH (08:45)
[2021-08-11] MEDS: INSULIN ASPART 100 UNITS/ML 3 ML PEN SC SCH ×4 (08:46→20:03)
[2021-08-11] MEDS: CEFEPIME 2,000 MG in SYRINGE 0 ML IV SCH ×2 (08:55→19:50)
[2021-08-11] MEDS: ASPIRIN 81 MG CHEW PO SCH (09:31)
[2021-08-11] MEDS: predniSONE 10 MG TABLET PO SCH (10:49)
[2021-08-11] MEDS: WARFARIN SOD 2.5 MG TAB PO SCH (17:00)
[2021-08-12] MEDS: CEFEPIME 2,000 MG in SYRINGE 0 ML IV SCH ×2 (02:07→11:23)
[2021-08-12] MEDS: ALBUT/IPRATROP 3MG/0.5MG NEB 3 ML VIAL INH SCH ×2 (07:24→10:14)
[2021-08-12] MEDS: INSULIN ASPART 100 UNITS/ML 3 ML PEN SC SCH ×2 (07:37→11:35)
[2021-08-12] MEDS: POT PHOSPHATE MONOBASIC W/ SOD TAB PO SCH ×2 (07:41→13:29)
[2021-08-12] MEDS: guaiFENesin 600 MG TABCR PO SCH (07:41)
[2021-08-12] MEDS: SOTALOL HCL 80 MG TAB PO SCH (07:41)
[2021-08-12] MEDS: predniSONE 10 MG TABLET PO SCH (07:41)
[2021-08-12] MEDS: amLODIPine BESYLATE 5 MG TAB PO SCH (07:42)
[2021-08-12] MEDS: ASPIRIN 81 MG CHEW PO SCH (07:44)
[2021-08-12] MEDS: FLUTICASONE/VILANTEROL 100/25MCG 14 PUFFS/INHALER INH SCH (07:44)
[2021-08-12] MEDS: UMECLIDINIUM/VILANTEROL 62.5/25MCG 7 PUFFS/INHALER INH SCH (07:45)
--- NOTE | 2021-08-12 07:48 | Hospitalist Progress Note ---
Date of Service August 12, 2021 Assessment & Plan (1) Sepsis: (2) Acute and chronic respiratory failure with hypoxia: (3) COPD exacerbation: (4) Pneumonia: Plan: 81 yo F w/ hx of chronic hypoxemic respiratory failure on 3.5 L of oxygen secondary to COPD and emphysema, insulin-dependent T2DM, PAF anticoagulated on warfarin and rhythm controlled with sotalol, HTN, pulmonary hypertension, history of left breast CA who presents secondary to worsening shortness of breath over the last 2 weeks. Met SIRS/sepsis criteria on admission secondary to tachycardia, leukocytosis and tachypnea. Source: Likely pulmonary in setting of pneumonia and COPD exacerbation Urine culture - mixed jarrell blood culture- negative Received IV cefepime and oral doxy in ED, patient with history of colonization of Pseudomonas and Aspergillus Sepsis Acute on chronic respiratory failure with hypoxia COPD exacerbation Pneumonia Met SIRS/sepsis criteria on admission secondary to tachycardia, leukocytosis and tachypnea. CXR showed Subtle interstitial thickening and possible mild bibasilar opacities. weaned off BiPAP to 5 L Continue IV cefepime and oral doxy IV steroids transitioned to p.o. prednisone 30 mg daily Sputum culture - positive for Aspergillus species, Pseudomonas #2 08/08 - Started inhaled tobramycin for 28-day cycles (given + Pseudomonas)- however now sensitivities are available, Pseudomonas resistant to tobramycin, pulmonary medicine aware, ID consulted, Tobramycin stopped Avoid quinolone and azithromycin while on sotalol treatment Continue pulmonary toilet with nebs, flutter valve, spirometer Pulmonary medicine consulted (patient follows with Dr. Ramsey as outpatient) JESSA Bowles consulted - appreciate their input Sputum culture re- collected -so far showing normal jarrell, Aspergillus antigen - pending Pulmonary plans to follow-up as outpatient in 2 weeks (discussed w/ E. Eagle) New LBBB QT prolongation EKG compared to prior 04/2020 with new evidence today of LBBB EKG with QTC 502 Cardiology following ECHO showed no LV wall motion abnormality. Ejection fraction 55 to 60% Will continue to avoid QT meds Ok with cardiology to continue sotalol Insulin-dependent T2DM Last A1c 7.2 on 06/29/2021 Lantus/NovoLog per protocol Continue to hold Metformin Pharmacy on board for glycemic management Paroxysmal atrial fibrillation Supratherapeutic INR Continue sotalol Coumadin resumed, goal INR 2-3 Continue monitor PT/INR HTN Continue amlodipine Hold lisinopril/hydrochlorothiazide in setting of hyponatremia and mild dehydration BP stable Hyponatremia Na 129 on 08/04 Possible related to HCTZ HCTZ on hold Continue monitor BMP Na 138 (08/08) Hypercalcemia Corrected calcium 11.7 Continue to Hold calcium supplement calcium normalized DVT prophylaxis: Coumadin resumed Dispo: PCU PCP: Dr. Beck FULL CODE Admission and Anticipated Discharge Date Admission Date: August 04, 2021 Subjective Pt was seen and examined for follow up of SOB Sitting up in a chair, in no acute distress Sputum culture positive for Aspergillus, Pseudomonas #2 Currently she is on 3L NC oxygen supplement(baseline) Denies any chest pain, palpitation, fever. Pulmonary medicine aware, ID consulted Also, pt on sotalol - reviewed w/ cardiology - not recommending any fluoroquinolones Repeat sputum culture so far shows only normal jarrell, Aspergillus antigen pending Review of Systems Review of Systems: All systems reviewed & are unremarkable except as noted in Subjective Physical Exam Physical Exam: General- elderly F in No acute distress Head- atraumatic Eyes- PERRL, EOMI, ENT- oropharynx clear Neck- supple, no JVD Lungs- + mild diffuse rhonchi, no wheezing Heart- regular rhythm; no murmur Abdomen- normal bowel sounds, soft, nontender Extremities- no calf tenderness, moves extremities Neuro- alert, oriented x 3; PERRL, EOMI; no facial palsy; no dysarthria, moves extremities Skin- warm & dry Results & Data Results & Data ([facility]) Vital Signs (Past 12 Hours) Vital Signs Temp Pulse Pulse Resp BP Pulse Ox 08/12/21 07:26 77 20 95 08/12/21 07:09 36.7 C 86 22 137/72 94 08/12/21 03:26 36.8 C 69 28 H 146/75 H 98 08/11/21 23:55 76 08/11/21 23:05 36.6 C 81 20 152/69 H 96 08/11/21 19:57 103 H 114/51 L Laboratory Results 08/12/21 08/12/21 08/12/21 Range/Units 10:57 07:29 07:20 WBC (4.8-10.8) K/uL RBC (4.2-5.4) M/uL Hgb (12.0-16.0) g/dL Hct (37-47) % MCV (80-100) fL MCH (25-34) pg MCHC (32-36) g/dL RDW Std Deviation (36.4-46.3) fL RDW Coeff of Derek (11.5-14.5) % Plt Count (130-400) K/uL MPV (7.4-10.4) fL Sodium 137 (136-145) mmol/L Potassium 3.3 L D (3.5-5.1) mmol/L Chloride 100 (98-107) mmol/L Carbon Dioxide 30 (21-32) mmol/L Anion Gap 7.0 (3-11) BUN 22 H (7-18) mg/dl Creatinine 0.48 L (0.6-1.2) mg/dl Est Cr Clr Drug Dosing 64.9 ml/min Est GFR ( Amer) 105.9 ml/min Est GFR (Non-Af Amer) 91.4 ml/min BUN/Creatinine Ratio 44.6 H (10-20) Glucose 115 H (70-99) mg/dl POC Glucose 158 H 121 H (70-99) mg/dl Calcium 9.0 (8.5-10.1) mg/dl Phosphorus 2.7 (2.5-4.9) mg/dl Magnesium 1.9 (1.8-2.4) mg/dl 08/12/21 08/11/21 08/11/21 Range/Units 07:20 19:53 19:52 WBC 15.00 H (4.8-10.8) K/uL RBC 4.10 L (4.2-5.4) M/uL Hgb 10.6 L (12.0-16.0) g/dL Hct 33.8 L (37-47) % MCV 82.4 (80-100) fL MCH 25.9 (25-34) pg MCHC 31.4 L (32-36) g/dL RDW Std Deviation 46.5 H (36.4-46.3) fL RDW Coeff of Derek 15.9 H (11.5-14.5) % Plt Count 624 H (130-400) K/uL MPV 10.4 (7.4-10.4) fL Sodium (136-145) mmol/L Potassium (3.5-5.1) mmol/L Chloride (98-107) mmol/L Carbon Dioxide (21-32) mmol/L Anion Gap (3-11) BUN (7-18) mg/dl Creatinine (0.6-1.2) mg/dl Est Cr Clr Drug Dosing ml/min Est GFR ( Amer) ml/min Est GFR (Non-Af Amer) ml/min BUN/Creatinine Ratio (10-20) Glucose (70-99) mg/dl POC Glucose 264 H 280 H (70-99) mg/dl Calcium (8.5-10.1) mg/dl Phosphorus (2.5-4.9) mg/dl Magnesium (1.8-2.4) mg/dl 08/11/21 08/11/21 Range/Units 16:22 11:18 WBC (4.8-10.8) K/uL RBC (4.2-5.4) M/uL Hgb (12.0-16.0) g/dL Hct (37-47) % MCV (80-100) fL MCH (25-34) pg MCHC (32-36) g/dL RDW Std Deviation (36.4-46.3) fL RDW Coeff of Derek (11.5-14.5) % Plt Count (130-400) K/uL MPV (7.4-10.4) fL Sodium (136-145) mmol/L Potassium (3.5-5.1) mmol/L Chloride (98-107) mmol/L Carbon Dioxide (21-32) mmol/L Anion Gap (3-11) BUN (7-18) mg/dl Creatinine (0.6-1.2) mg/dl Est Cr Clr Drug Dosing ml/min Est GFR ( Amer) ml/min Est GFR (Non-Af Amer) ml/min BUN/Creatinine Ratio (10-20) Glucose (70-99) mg/dl POC Glucose 162 H 102 H (70-99) mg/dl Calcium (8.5-10.1) mg/dl Phosphorus (2.5-4.9) mg/dl Magnesium (1.8-2.4) mg/dl Medications Administered Current Inpatient Medications Acetaminophen (Acetaminophen 325 Mg Tab) 650 mg PO Q4H PRN PRN Reason: Pain or Fever Stop: 09/03/21 19:59 Al Hydrox/Mg Hydrox/Simethicone (Aluminum/Magnesium Susp 30 Ml Udc) 15 ml PO Q4H PRN PRN Reason: Dyspepsia Stop: 09/03/21 19:59 Last Admin: 08/05/21 02:45 Dose: 15 ml Documented by: Albuterol (Albuterol Hfa 8 Gm Inhaler) 2 puffs INH Q4 PRN; Protocol PRN Reason: cough,sob,wheezing Stop: 09/03/21 19:59 Last Admin: 08/11/21 02:01 Dose: 2 puffs Documented by: Albuterol (Albut/Ipratrop 3mg/0.5mg Neb 3 Ml Vial) 3 ml INH QIDR JOHN Stop: 09/03/21 20:59 Last Admin: 08/12/21 07:24 Dose: 3 ml Documented by: Amlodipine Besylate (Amlodipine Besylate 5 Mg Tab) 5 mg PO DAILY JOHN Stop: 09/04/21 08:59 Last Admin: 08/12/21 07:42 Dose: 5 mg Documented by: Aspirin (Aspirin 81 Mg Chew) 81 mg PO DAILY JOHN Stop: 09/04/21 08:59 Last Admin: 08/12/21 07:44 Dose: 81 mg Documented by: Dextrose (Dextrose 50% 50 Ml Syringe) 25 - 50 ml IV UD PRN; Protocol PRN Reason: Hypoglycemia Protocol Stop: 09/03/21 19:59 Fluticasone/Vilanterol (Fluticasone/Vilanterol 100/25mcg 14 Puffs/Inhaler) 1 puffs INH DAILY JOHN Stop: 09/04/21 16:59 Last Admin: 08/12/21 07:44 Dose: 1 puffs Documented by: Glucagon (Glucagon For Inj 1 Mg Vial) 1 mg SQ UD PRN; Protocol PRN Reason: Hypoglycemia Protocol Stop: 09/03/21 19:59 Glucose (Glucose 10 Tabs/Tube) 4 - 8 tabs PO UD PRN; Protocol PRN Reason: Hypoglycemia Protocol Stop: 09/03/21 19:59 Glucose (Glucose 40% Gel 15 Gm Tube) 15 - 30 gm PO UD PRN; Protocol PRN Reason: Hypoglycemia Protocol Stop: 09/03/21 19:59 Guaifenesin (Guaifenesin 600 Mg Tabcr) 1,200 mg PO Q12 JOHN Stop: 09/03/21 20:59 Last Admin: 08/12/21 07:41 Dose: 1,200 mg Documented by: Promethazine HCl 6.25 mg/ (Sodium Chloride) 50.25 mls @ 201 mls/hr IV Q6H PRN PRN Reason: Nausea And Vomiting Stop: 09/03/21 19:59 Cefepime HCl 2,000 mg/ Syringe 20 mls @ 5 mls/min IV Q8H [facility]; Protocol Stop: 08/18/21 18:29 Last Admin: 08/12/21 02:07 Dose: 5 mls/min Documented by: Insulin Aspart (Insulin Aspart 100 Units/Ml 3 Ml Pen) 0 units SC ACHS [facility]; Protocol Stop: 09/03/21 20:59 Last Admin: 08/12/21 07:37 Dose: 4 units Documented by: Insulin Glargine (Insulin Glargine Solostar 100 Units/Ml 3 Ml Pen) 15 units SC DAILY [facility]; Protocol Stop: 09/09/21 08:59 Magnesium Hydroxide (Magnesium Hydroxide Susp 30 Ml Udc) 30 ml PO Q12H PRN PRN Reason: Constipation Stop: 09/03/21 19:59 Miscellaneous (Carbohydrates For Hypoglycemia ) 15 - 30 gm PO UD PRN PRN Reason: Hypoglycemia Protocol Stop: 09/03/21 19:59 Miscellaneous Information (Pharmacy Glycemic Mgmt Consult) 1 ea N/A UD PRN PRN Reason: Consult Stop: 09/03/21 19:59 Polyethylene Glycol (Polyethylene (Miralax) 17 Gm Pack) 17 gm PO DAILY PRN PRN Reason: Constipation Stop: 09/03/21 19:59 Potassium Phosphate (Pot Phosphate Monobasic W/ Sod Tab) 1 tab PO QID [facility] Stop: 09/08/21 12:59 Last Admin: 08/12/21 07:41 Dose: 1 tab Documented by: Prednisone (Prednisone 10 Mg Tablet) 30 mg PO DAILY [facility] Stop: 09/06/21 08:59 Last Admin: 08/12/21 07:41 Dose: 30 mg Documented by: Sotalol HCl (Sotalol Hcl 80 Mg Tab) 80 mg PO Q12 [facility] Stop: 09/03/21 20:59 Last Admin: 08/12/21 07:41 Dose: 80 mg Documented by: Umeclidinium/Vilanterol (Umeclidinium/Vilanterol 62.5/25mcg 7 Puffs/Inhaler) 1 puffs INH DAILY [facility]; Protocol Stop: 09/04/21 08:59 Last Admin: 08/12/21 07:45 Dose: 1 puffs Documented by: Warfarin Sodium (Warfarin Sod 2.5 Mg Tab) 2.5 mg PO DAILY@1600 JOHN Stop: 09/06/21 15:59 Last Admin: 08/11/21 17:00 Dose: 2.5 mg Documented by:
[2021-08-12 08:11] LABS: Hematocrit (blood only) 33.8 % (37-47); Hemoglobin 10.6 g/dL (12.0-16.0); Mean Corpuscular Hemoglobin 25.9 pg (25-34); Mean Corpuscular Hgb Conc 31.4 g/dL (32-36); Mean Corpuscular Volume 82.4 fL (80-100); Mean Platelet Volume 10.4 fL (7.4-10.4); Platelet Count 624 K/uL (130-400); RDW Coefficient of Variation 15.9 % (11.5-14.5); RDW Standard Deviation 46.5 fL (36.4-46.3)
[2021-08-12 09:00] LABS: BUN Creatinine Ratio 44.6 (10-20); Creatinine Clr Calc Pharmacy 64.9 ml/min; Est GFR (African American) 105.9 ml/min; Est GFR (Non-African American) 91.4 ml/min; Magnesium 1.9 mg/dl (1.8-2.4); Phosphorus 2.7 mg/dl (2.5-4.9); Potassium 3.3 mmol/L (3.5-5.1)
[2021-08-12] MEDS ORDERED: INSULIN GLARGINE SOLOSTAR 100 UNITS/ML 3 ML PEN SC SCH ×2 (09:00)
--- NOTE | 2021-08-12 10:23 | Pharmacy Report ---
Pharmacy Glycemic Short Note 2 - Date of Service August 12, 2021 - Glycemic Short BSG Results (Last 24 hours): 08/11/21 08/11/21 08/11/21 11:18 16:22 19:52 Glucose POC Glucose 102 H 162 H 280 H 08/11/21 08/12/21 08/12/21 19:53 07:20 07:29 Glucose 115 H POC Glucose 264 H 121 H OUTPATIENT ANTIDIABETIC REGIMEN: * Lantus 12 units SC AM * Metformin 1000 mg PO BIDM * HbA1c = 8.0% (08/06/21) ASSESSMENT: 08/12: * Salome received a total of 40 units of insulin yesterday (12 units Lantus + 28 units Novolog) * BSGs were controlled for the most part: [phone] mg/dL * Continue to trend upward throughout the day * Fasting BSG well controlled at 121 mg/dL this AM * No change to Lantus. Will tighten carb ratio slightly to help control postprandial hyperglycemia. * Continues on Prednisone 30 mg PO daily 08/09: * Patient received total of 39 units of insulin yesterday, of which 15 units were Lantus * Fasting BSG 91 mg/dL - each day fasting BSG has been trending down, may scale back to home dose of 12 units * Continue same CF/CR for now PLAN FOR INPATIENT GLYCEMIC CONTROL: * Hold outpatient oral diabetes medications * Basal insulin * Lantus 12 units SC daily * Bolus insulin * NovoLog per scale ACHS or Q6hrs while NPO * Goal Range: Low 110 mg/dL - High 140 mg/dL * Correction Factor: 20 mg/dL/unit * Nutritional / Prandial insulin per carb ratio of 1 unit per 5 grams CHO consumed PLAN FOR DISCHARGE: * HbA1c was 8% from this admission which is at goal given this patient's age and comorbidities. No changes to outpatient regimen upon discharge.
[2021-08-12] MEDS ORDERED: POTASSIUM CHLORIDE CRTAB 20 MEQ TABCR PO STA (11:14)
--- NOTE | 2021-08-12 14:24 | Discharge Summary ---
Date of Service August 12, 2021 Admission HPI Per Admitting Provider This is a 81-year-old female who has significant past medical history of chronic hypoxemic respiratory failure on 3.5 L of oxygen secondary to COPD and emphysema, insulin-dependent T2DM, PAF anticoagulated on warfarin and rhythm controlled with sotalol, HTN, pulmonary hypertension, history of left breast CA who presents to ED secondary to worsening shortness of breath over the last 2 weeks. Patient notes that she has been ill over the past month with increasing shortness of breath and cough. Of note she is vaccinated for influenza but is not vaccinated for COVID-19. Over the past 2 weeks she has noted increasing use of oxygen and worsening shortness of breath. She states approximately a month ago she developed an itch on her lower extremities. She then developed tooth pain. She was seen by PCP who prescribed prednisone which helped her itching. It also helped her breathing. Once she was done with prednisone her itching returned and her shortness of breath got worse. She does complain of a pro ductive cough of purulent brown/yellow sputum, shortness of breath, wheezing, nausea and loose stool. She states she moves her bowels approximately 10 times a day. She denies ron diarrhea just describes as, "loose." She denies fever, chills, sweats, lightheadedness, dizziness, syncope, chest pain, palpitations, hemoptysis, emesis, dysuria, increased urgency or frequency with urination. In ED she was noted to be hypoxic/tacypneic on her home oxygen. EMS was summoned. She was placed on BiPAP in route and received 3 DuoNebs as well as 125 mg of Solu-Medrol. In ED patient was transitioned to BiPAP and has clinically improved. Chest x-ray concerning for interstitial thickening and possible basilar opacities. She does have mild elevation of WBC of 14 K. Her procalcitonin is within normal limits. Other lab abnormalities include supratherapeutic INR at 4.6, compensatory respiratory alkalosis, sodium 129, BUN 30, creatinine 0.66, calcium 10.4. Her EKG revealed normal sinus rhythm with PACs but did reveal a new left bundle branch block. Her initial troponin was 0.015. She was started on IV cefepime and oral doxy due to concern for pneumonia. Per ED provider patient does have history of Pseudomonas and Aspergillus. Admission Exam Per Admitting Provider Constitutional: Petite, Thin, F, Tachypneic, +BIPAP, dyspneic with conversation, vitals as above, NAD, sitting up in bed, pleasant Head: Normocephalic, Atraumatic Eyes: PERRL, conjunctivae normal, anicteric sclerae ENMT: external ear and nose normal, oropharynx normal Neck: trachea midline, no thyromegaly normal visual inspection Respiratory: increased respiratory effort, decreased BS at bases, + rhonchi RUL, no wheeze or rale. + accessory muscle use Cardiovascular: tachycardic rate, reg rhythm, no murmur, no edema Vessels: no JVD or carotid bruit Chest: normal inspection of chest Abdomen: normal bowel sounds, soft, nontender, no hepatosplenomegaly Musculoskeletal: no cyanosis or clubbing, extremities motor strength 5/5 Skin: no rashes, warm and dry normal turgor Neurologic: PERRL, EOMI, accommodation nl, no face palsy, no dysarthria CN's II-XI intact bilaterally and moves all extremities Psychiatric: A+Ox3, euthymic affect Lymphatic: no cervical or axillary lymphadenopathy : deferred Principal Diagnosis Sepsis Acute and chronic respiratory failure with hypoxia COPD exacerbation Pneumonia Discharge Exam General- elderly F in No acute distress Head- atraumatic Eyes- PERRL, EOMI, ENT- oropharynx clear Neck- supple, no JVD Lungs- + mild diffuse rhonchi, no wheezing Heart- regular rhythm; no murmur Abdomen- normal bowel sounds, soft, nontender Extremities- no calf tenderness, moves extremities Neuro- alert, oriented x 3; PERRL, EOMI; no facial palsy; no dysarthria, moves extremities Skin- warm & dry Discharge Data Allergies Allergy/AdvReac Type Severity Reaction Status Date / Time amoxicillin [From Augmentin] AdvReac red - Verified 08/04/21 15:12 itchy hands clavulanic acid AdvReac red - Verified 08/04/21 15:12 [From Augmentin] itchy hands Consultations 08/04/21 16:43 ED Decision to Admit Stat 08/04/21 17:36 Consult Cardiology Routine Consult Pulmonology Routine 08/09/21 09:58 Consult Infectious Diseases Routine Hospital Course (1) Sepsis: (2) Acute and chronic respiratory failure with hypoxia: (3) COPD exacerbation: (4) Pneumonia: 81 yo F w/ hx of chronic hypoxemic respiratory failure on 3.5 L of oxygen secondary to COPD and emphysema, insulin-dependent T2DM, PAF anticoagulated on warfarin and rhythm controlled with sotalol, HTN, pulmonary hypertension, history of left breast CA who presents secondary to worsening shortness of breath over the last 2 weeks. Met SIRS/sepsis criteria on admission secondary to tachycardia, leukocytosis and tachypnea. Source: Likely pulmonary in setting of pneumonia and COPD exacerbation Urine culture - mixed jarrell blood culture- negative Received IV cefepime and oral doxy in ED, patient with history of colonization of Pseudomonas and Aspergillus Sepsis Acute on chronic respiratory failure with hypoxia COPD exacerbation Pneumonia Met SIRS/sepsis criteria on admission secondary to tachycardia, leukocytosis and tachypnea. CXR showed Subtle interstitial thickening and possible mild bibasilar opacities. weaned off BiPAP to 5 L Continue IV cefepime and oral doxy IV steroids transitioned to p.o. prednisone 30 mg daily Sputum culture - positive for Aspergillus species, Pseudomonas #2 08/08 - Started inhaled tobramycin for 28-day cycles (given + Pseudomonas)- however now sensitivities are available, Pseudomonas resistant to tobramycin, pulmonary medicine aware, ID consulted, Tobramycin stopped Avoid quinolone and azithromycin while on sotalol treatment Continue pulmonary toilet with nebs, flutter valve, spirometer Pulmonary medicine consulted - appreciate their input ID Jelena consulted - appreciate their input Sputum culture re- collected -so far showing normal jarrell, Aspergillus antigen - pending Pulmonary plans to follow-up as outpatient in 2 weeks (discussed w/ EDaisy Guillermo) New LBBB QT prolongation EKG compared to prior 04/2020 with new evidence today of LBBB EKG with QTC 502 Cardiology following ECHO showed no LV wall motion abnormality. Ejection fraction 55 to 60% Will continue to avoid QT meds Ok with cardiology to continue sotalol Insulin-dependent T2DM Last A1c 7.2 on 06/29/2021 Lantus/NovoLog per protocol Continue to hold Metformin Pharmacy on board for glycemic management Paroxysmal atrial fibrillation Supratherapeutic INR Continue sotalol Coumadin resumed, goal INR 2-3 Continue monitor PT/INR HTN Continue amlodipine Hold lisinopril/hydrochlorothiazide in setting of hyponatremia and mild dehydrat ion BP stable Hyponatremia Na 129 on 08/04 Possible related to HCTZ HCTZ on hold Continue monitor BMP Na 138 (08/08) Hypercalcemia Corrected calcium 11.7 Continue to Hold calcium supplement calcium normalized PCP: Dr. Beck Total Time Total Time Spent Total Time Spent (In Minutes): 40 Discharge Plan Discharge Items Patient Disposition: Home - Self-Care Reason For Visit: SOB Discharge Diagnosis: Sepsis Acute and chronic respiratory failure with hypoxia COPD exacerbation Pneumonia Activity: Per Instructions section Non-emergency contact: Primary Care Provider and Director Of Vital Statistics Call non-emergency contact if: you have any medication questions and your symptoms worsen Follow-up/Referrals: Dez Ramsey MD [Physician] - (Follow up in the office with Miguel Najera in 2-3 weeks) Radha Beck DO [Primary Care Provider] - Diet: Carb Consistent or DM2 and Heart Healthy Addtl Attending Provider Instructions: Follow-up with your primary care doctor and sueding machine tender. You should follow-up with pulmonary physician in 2 weeks. You should see your primary care doctor within 1 to 2 weeks. Take guaifenesin/Mucinex for next 10 days. Take prednisone 10 mg for next 4 days. Continue using flutter valve and spirometer at home. Pending Studies at Discharge: Yes Studies:: Final sputum culture Aspergillus antigen Stand-Alone Forms: My [facility] UUSEE, Smoking Cessation Medications and DC Order Prescriptions: New guaifenesin [Mucinex] 600 mg Tablet Extended Release 12hr 1,200 mg PO Q12 10 Days Qty: 40 RF: 0 prednisone 10 mg tablet 10 mg PO DAILY 4 Days Qty: 4 RF: 0 Continued warfarin 2.5 mg tablet 2.5 mg PO [facility] RF: 0 multivitamin [One-A-Day Essential] tablet 1 tab PO DAILY RF: 0 (DME) Oxygen Home Liters Per Minute See Dose Instructions .ROUTE .MEDSUPPLY Qty: 1 RF: 0 amlodipine 5 mg tablet 5 mg PO DAILY Qty: 1 RF: 0 insulin glargine 100 unit/mL solution 12 unit subcut DAILY RF: 0 metformin 1,000 mg tablet 1,000 mg PO BID Qty: 180 RF: 0 sotalol 80 mg tablet 80 mg PO Q12 RF: 0 (DME) nebulizers misc See Dose Instructions .ROUTE .MEDSUPPLY Qty: 1 RF: 0 Caltrate + D3 Plus Minerals 300 mg-800 unit -25 mg-0.5 mg tablet 1 tab PO BID RF: 0 (DME) Portable Oxygen Misc See Rx Instructions .ROUTE .MEDSUPPLY Qty: 1 RF: 0 aspirin [Aspirin Childrens] 81 mg Tablet,Chewable 81 mg PO DAILY RF: 0 lisinopril-hydrochlorothiazide 20-25 mg tablet 1 tab PO DAILY RF: 0 Bevespi Aerosphere 9-4.8 mcg HFA aerosol inhaler 2 puff INHALATION BID RF: 0 ipratropium-albuterol [DuoNeb] 0.5 mg-3 mg(2.5 mg base)/3 mL Solution For Nebulization 3 ml INHALATION Q4 PRN (Reason: cough,sob,wheezing) RF: 0 albuterol sulfate 90 mcg/actuation HFA aerosol inhaler 2 inh inhalation Q4 PRN (Reason: cough,sob,wheezing) RF: 0 prednisone 20 mg tablet See Rx Instructions .ROUTE .COMPLEX RF: 0 warfarin 2.5 mg Tablet 5 mg PO ORNELAS RF: 0 Discharge Orders: Discharge Order (Routine); Ordered 08/12/21 Ordered By: Gustavo Sharp/Other Patient Handouts: Managing Type 2 Diabetes Admission Data Admit Date/Time: 08/04/21 16:39 Attending Provider: Gustavo Ramirez Admit Provider: Cherrie Guardado I. Primary Care Provider: Radha Beck Other Providers: Dez Ramsey ; Gus Clement ; Cherrie Guardado I. ; Teo Raymond ; Salomón Pardo ; Ladarius Merchant I. ; Toro Boyle II ; Mariann Savage ; Duglas Ornelas ; Nilo Steele
[2021-08-15 18:36] LABS: Aspergillus Ag Index 0.24 (<0.50); Aspergillus Antigen, Serum Not Detected (Not Detected)
== END 2021-08-12 16:26 | disposition home or self-care (01) | DRG 871 ==
LOC: ED 14:39 → SUATTDRO 16:39 → EDINP 16:39 → 2S 21:43
DX: Z79.01 Long term (current) use of anticoagulants; I27.20 Pulmonary hypertension, unspecified; J44.0 Chronic obstructive pulmonary disease with (acute) lower respiratory infection; E87.1 Hypo-osmolality and hyponatremia; I11.0 Hypertensive heart disease with heart failure; E11.9 Type 2 diabetes mellitus without complications; Z79.84 Long term (current) use of oral hypoglycemic drugs; I48.0 Paroxysmal atrial fibrillation; Z87.891 Personal history of nicotine dependence; J96.21 Acute and chronic respiratory failure with hypoxia; E83.52 Hypercalcemia; Z88.1 Allergy status to other antibiotic agents; Z85.3 Personal history of malignant neoplasm of breast; J18.9 Pneumonia, unspecified organism; I44.7 Left bundle-branch block, unspecified; I50.9 Heart failure, unspecified; Z99.81 Dependence on supplemental oxygen; B44.9 Aspergillosis, unspecified; A41.9 Sepsis, unspecified organism; B96.5 Pseudomonas (aeruginosa) (mallei) (pseudomallei) as the cause of diseases classified elsewhere; J44.1 Chronic obstructive pulmonary disease with (acute) exacerbation

== ENCOUNTER 2021-10-10 19:42 | Inpatient (IN) ==
[2021-10-10 20:03] LABS: Basophils # (auto) 0.02 K/uL (0-0.2); Basophils % (auto) 0.1 %; Eosinophils # (auto) 0.02 K/uL (0-0.5); Eosinophils % (auto) 0.1 %; Hematocrit (blood only) 36.2 % (37-47); Hemoglobin 11.2 g/dL (12.0-16.0); Immature Granulocytes # (auto) 0.04 K/uL (0.00-0.02); Immature Granulocytes % (auto) 0.3 %; Lymphocytes # (auto) 2.28 K/uL (1.2-3.4); Lymphocytes % (auto) 14.8 %; Mean Corpuscular Hemoglobin 25.5 pg (25-34); Mean Corpuscular Hgb Conc 30.9 g/dL (32-36); Mean Corpuscular Volume 82.3 fL (80-100); Mean Platelet Volume 10.3 fL (7.4-10.4); Monocytes # (auto) 0.29 K/uL (0.11-0.59); Monocytes % (auto) 1.9 %; Neutrophils # (auto) 12.77 K/uL (1.4-6.5); Neutrophils % (auto) 82.8 %; Platelet Count 571 K/uL (130-400); RDW Coefficient of Variation 15.6 % (11.5-14.5); RDW Standard Deviation 47.3 fL (36.4-46.3); White Blood Count 15.42 K/uL (4.8-10.8)
--- NOTE | 2021-10-10 20:07 | Emergency Department Note ---
Impression & Plan Respiratory failure, Edema, Hypoxia, Acidosis, lactic, Metabolic acidosis, Pulmonary edema ED Provider Note NAME: MEDINA ROBERSON AGE: 81 SEX: F : 1940 ARRIVES VIA: Ambulance INFORMANT: Patient, EMS personnel, the patient's daughter ED PROVIDER(S): Elmer Mcclellan DO CHIEF COMPLAINT: Shortness of breath HPI: The patient is an 81-year-old female who presented to emergency department for an evaluation of shortness of breath. The patient arrived via ALS. History was limited secondary to severe dyspnea and altered mental status. The patient according to her family member has been complaining of some shortness of breath over the course the last few days. This became significantly worse this evening. She asked that 911 be called and the patient arrived via ALS. She has a history of COPD. Prehospital personnel treated the patient for COPD prior to arrival with bronchodilator therapy IV steroids and BiPAP. The patient was noted to have oxygen saturation in the 70s prior to arrival. The patient has a history of COPD. She is currently taking steroids. She also has a history of paroxysmal atrial fibrillation and diabetes. According to her daughter she has been compliant with her usual medications. She has had a cough with thick sputum. She is not been seen by her primary care physician for the symptoms recently. She has had no vomiting. She has had no decreased urine output. ROS: See above HPI for pertinent positives & negatives. A total of 10 systems reviewed and were otherwise negative. PAST MEDICAL HISTORY: See Below PAST SURGICAL HISTORY: See Below FAMILY HISTORY: See Below SOCIAL HISTORY: See Below HOME MEDICATIONS: See Below ALLERGIES: See Below VITALS: See Below PHYSICAL EXAMINATION: GENERAL: The patient is listless and slow to respond to questions. She appears to be having very significant difficulty breathing. EYES: The conjunctivae are clear. The pupils are round and reactive. EARS, NOSE, MOUTH AND THROAT: The nose is without any evidence of any deformity. NECK: The neck is nontender and supple. RESPIRATORY: Shallow and ineffective respirations were noted. Rales were noted throughout. There was significant conversational dyspnea. CARDIOVASCULAR: Regular rate and rhythm noted there no murmurs rubs or gallops normal S1 normal S2. GASTROINTESTINAL: The abdomen is soft. Abdomen is nontender. MUSCULOSKELETAL/EXTREMITIES: There is no evidence of gross deformity full range of motion is noted in the hips and shoulders. SKIN: Pedal edema was noted bilaterally. NEUROLOGIC: Patient is awake to verbal commands. She is oriented to person place and situation. MEDICAL DECISION MAKING: The patient is an 81-year-old female who presented to emergency department for evaluation of difficulty breathing. The patient arrived via ALS. She was placed on BiPAP prior to arrival with severe hypoxia. The patient has a history of paroxysmal atrial fibrillation as well as COPD. She was treated with br onchodilator therapy as well as IV steroids prior to arrival by the box office attendant. The patient's physical exam appear to be consistent with volume overload. She was kept on BiPAP but did not appear to be doing well. Her oxygen saturation improved but her respiratory drive started to diminish. The decision was made to intubate the patient. I discussed this with the patient's family member prior to intubation and they were agreeable. Patient was intubated in usual fashion. She tolerated this well. [facility] agreed to evaluate patient in the emergency department for further management and disposition. She did require IV fluids to augment her blood pressure. She was also treated with IV antibiotics. Triage Nursing notes reviewed. Prior medical records reviewed Vital Signs: reviewed and remarkable for hypoxia tachycardia and intermittent hypotension. Differential diagnosis: Reactive airway disease, pneumonia, pneumothorax, COPD, CHF, infections, cardiac ischemia, pulmonary embolism, musculoskeletal, gastrointestinal, as well as other pathologies. ER treatment provided: See below Diagnostics interpreted by me: ECG: EKG was obtained in the emergency department. My interpretation is sinus rhythm at 101 bpm. Left bundle branch block pattern was noted. There was no ectopy appreciated. Nonspecific ST segment abnormalities were noted. This was compared to a tracing from August 062020. No changes were noted. Cardiac Monitoring: An order was placed for continuous cardiac monitoring. The monitor shows a rate of 102 bpm with sinus tachycardia. Laboratory studies: As stated above and show below. Imaging studies: See below Consultation(s): I discussed this case with Dr. Staples who [facility] will evaluate the patient in the emergency department. ED COURSE: Procedures: Endotracheal Intubation Indication respiratory failure. The patient was on 100% oxygen via NRB prior to the procedure. Suction, airway equipment, RSI drugs, respiratory equipment, and appropriate personnel were prepared prior to the initiation of the procedure. A time out was taken. Induction was performed with ketamine and rocuronium. After observing the clinical benefit of the medications, the airway was easily visualized utilizing a glide scope. A 7.5 size ETT tube was placed atraumatically to 25 cm using standard technique. The cuff inflated without signs of malfunction. There were bilateral breath sounds, positive colormetric change, no gastric sounds, a good capnography waveform, and post procedure pulse oximetry was 92%. Post intubation sedation and paralysis was administered using propofol. There were no complications. PDMP:reviewed and no issues Critical Care: I have personally spent greater than 55 minutes of critical care time in the direct management of this patient. This includes bedside care, interpretation of diagnostic studies, and testing, discussion with consultants, patient, and family members, and other required patient management activities. This 55 minutes is in excess of all separately billable procedures. Past Med/Surg History Medical History CHF (congestive heart failure) (12/07/13) Chronic dyspnea Chronic respiratory failure with hypoxia COPD (chronic obstructive pulmonary disease) COPD exacerbation (12/07/13) DCIS (ductal carcinoma in situ) of breast Diabetes Hypertension Insulin dependent diabetes mellitus Paroxysmal atrial fibrillation Respiratory failure with hypoxia Surgical History History of carpal tunnel release History of dental surgery History of partial mastectomy History of tubal ligation Family History Mother Diabetes Other Breast cancer Deep vein thrombosis Social History Smoking Status: Never smoker packs per day: 0.5; Years Smoked: 20; Second Hand Exposure: Yes; Hx Alcohol Use: No Hx Substance Use: No Preferred Language: Russian Communication Ability: Effective Bench Worker Helper Required: No Beliefs That Will Affect Care: None marital status: / Current Living Situation[facility] Current Living Situation Comment: [facility] How many Children do You have: 2 Feels Safe at Home: Yes Assistive Devices: Oxygen - Continuous Allergies Allergies Allergy/AdvReac Type Severity Reaction Status Date / Time amoxicillin [From Augmentin] AdvReac red - Verified 10/10/21 20:45 itchy hands clavulanic acid AdvReac red - Verified 10/10/21 20:45 [From Augmentin] itchy hands Home Meds Home Medications Medication Instructions Recorded Confirmed multivitamin (One-A-Day Essential) 1 tab PO DAILY 06/01/19 10/10/21 amlodipine 5 mg tablet 5 mg PO DAILY #1 tab 05/04/20 10/10/21 calcium carb 300 mg-D3 800 1 tab PO BID tab 05/04/20 10/10/21 unit-mag ox 25 mg-blueprinting and photocopy supervisor 0.5 mg-rashid-Zn tablet (Caltrate + D3 Plus Minerals) insulin glargine 100 unit/mL 12 unit SUBCUT DAILY ml 05/04/20 10/10/21 subcutaneous solution metformin 1,000 mg tablet 1,000 mg PO BID #180 tab 05/04/20 10/10/21 sotalol 80 mg tablet 80 mg PO Q12 tab 05/04/20 10/10/21 aspirin 81 mg chewable tablet 81 mg PO DAILY 08/04/21 10/10/21 (Aspirin Childrens) lisinopril 20 1 tab PO DAILY 08/04/21 10/10/21 mg-hydrochlorothiazide 25 mg tablet warfarin 2.5 mg tablet 2.5 - 5 mg PO DIRECTED 08/04/21 10/10/21 glycopyrrolate 9 mcg-formoterol 2 puff INHALATION BID 10/10/21 10/10/21 4.8 mcg HFA aerosol inhaler (Bevespi Aerosphere) ipratropium 0.5 mg-albuterol 3 mg 3 ml INHALATION Q4 PRN 10/10/21 10/10/21 (2.5 mg base)/3 mL nebulization soln Previous Rx's Medication Instructions Recorded Oxygen Home #1 ea 06/01/19 nebulizers #1 ea 06/10/19 Portable Oxygen #1 ea 05/04/20 Fernando Hose #2 ea 08/17/21 ipratropium 0.5 mg-albuterol 3 mg 3 ml INHALATION Q4 PRN #180 vial 09/04/21 (2.5 mg base)/3 mL nebulization soln albuterol sulfate 90 mcg/actuation 2 inh INHALATION Q4 PRN #8.5 g 10/10/21 aerosol inhaler doxycycline hyclate 100 mg capsule 100 mg PO BID #20 cap 10/10/21 prednisone 10 mg tablet See Rx Instructions PO DAILY #36 10/10/21 tab Results & Data (ED) Vital Signs Vital Signs - 24 hr 10/10/21 19:52 10/10/21 19:53 10/10/21 19:54 Temperature 36.8 C Temperature Source Axillary Pulse Rate 105 H Pulse Rate from SpO2 Sensor Respiratory Rate 28 H 26 H Respiratory Effort / Characteristics Non-Labored Respiratory Depth Normal Respiratory Pattern Regular Blood Pressure 145/80 H 145/80 H Blood Pressure Mean 101 101 Blood Pressure Position Sitting Pulse Oximetry 99 92 78 L Oxygen Delivery Method BiPAP BiPAP BiPAP Fraction of Inspired Oxygen Sepsis Recent Fever Within 48 Hours No Sepsis New/Unexplained Change in Mental Status No Sepsis Action Taken by Nursing Physician Notified End-Tidal CO2 10/10/21 20:02 10/10/21 20:03 10/10/21 20:10 Temperature Temperature Source Pulse Rate Pulse Rate from SpO2 Sensor 110 H Respiratory Rate 28 H Respiratory Effort / Characteristics Pursed Lip Respiratory Depth Respiratory Pattern Blood Pressure Blood Pressure Mean Blood Pressure Position Pulse Oximetry 95 98 Oxygen Delivery Method BiPAP BiPAP Fraction of Inspired Oxygen Sepsis Recent Fever Within 48 Hours Sepsis New/Unexplained Change in Mental Status Sepsis Action Taken by Nursing End-Tidal CO2 10/10/21 20:13 10/10/21 20:20 10/10/21 20:30 Temperature Temperature Source Pulse Rate 112 H 113 H Pulse Rate from SpO2 Sensor 110 H 110 H 113 H Respiratory Rate 12 30 H Respiratory Effort / Characteristics Respiratory Depth Respiratory Pattern Blood Pressure 153/75 H Blood Pressure Mean 101 Blood Pressure Position Pulse Oximetry 99 99 99 Oxygen Delivery Method Fraction of Inspired Oxygen Sepsis Recent Fever Within 48 Hours Sepsis New/Unexplained Change in Mental Status Sepsis Action Taken by Nursing End-Tidal CO2 10/10/21 20:45 10/10/21 20:54 10/10/21 20:57 Temperature Temperature Source Pulse Rate 100 H Pulse Rate from SpO2 Sensor Respiratory Rate 22 Respiratory Effort / Characteristics Respiratory Depth Respiratory Pattern Blood Pressure 76/44 L 80/42 L Blood Pressure Mean 54 54 Blood Pressure Position Pulse Oximetry 96 Oxygen Delivery Method Mechanical Vent Mechanical Vent Fraction of Inspired Oxygen 90 Sepsis Recent Fever Within 48 Hours Sepsis New/Unexplained Change in Mental Status Sepsis Action Taken by Nursing End-Tidal CO2 41 10/10/21 21:04 10/10/21 21:10 10/10/21 21:13 Temperature Temperature Source Pulse Rate 111 H Pulse Rate from SpO2 Sensor Respiratory Rate 22 Respiratory Effort / Characteristics Mechanically Ventilated Respiratory Depth Respiratory Pattern Blood Pressure 92/56 L 96/56 L 100/56 L Blood Pressure Mean 68 69 70 Blood Pressure Position Pulse Oximetry Oxygen Delivery Method Fraction of Inspired Oxygen Sepsis Recent Fever Within 48 Hours Sepsis New/Unexplained Change in Mental Status Sepsis Action Taken by Nursing End-Tidal CO2 46 10/10/21 21:18 10/10/21 21:20 10/10/21 21:21 Temperature Temperature Source Pulse Rate 112 H 111 H 111 H Pulse Rate from SpO2 Sensor 112 H 111 H 111 H Respiratory Rate 22 22 22 Respiratory Effort / Characteristics Respiratory Depth Respiratory Pattern Blood Pressure 105/57 L 101/56 L Blood Pressure Mean 73 71 Blood Pressure Position Pulse Oximetry 95 94 94 Oxygen Delivery Method Fraction of Inspired Oxygen Sepsis Recent Fever Within 48 Hours Sepsis New/Unexplained Change in Mental Status Sepsis Action Taken by Nursing End-Tidal CO2 46 46 47 10/10/21 21:24 10/10/21 21:27 10/10/21 21:30 Temperature Temperature Source Pulse Rate 111 H 101 H 108 H Pulse Rate from SpO2 Sensor 111 H 103 H 110 H Respiratory Rate 22 22 22 Respiratory Effort / Characteristics Respiratory Depth Respiratory Pattern Blood Pressure 102/59 L Blood Pressure Mean 73 Blood Pressure Position Pulse Oximetry 94 93 93 Oxygen Delivery Method Fraction of Inspired Oxygen Sepsis Recent Fever Within 48 Hours Sepsis New/Unexplained Change in Mental Status Sepsis Action Taken by Nursing End-Tidal CO2 46 46 46 10/10/21 21:33 10/10/21 21:38 10/10/21 21:45 Temperature Temperature Source Pulse Rate 105 H 102 H Pulse Rate from SpO2 Sensor 106 H 103 H Respiratory Rate 22 22 24 Respiratory Effort / Characteristics Respiratory Depth Respiratory Pattern Blood Pressure 112/64 107/66 Blood Pressure Mean 80 79 Blood Pressure Position Pulse Oximetry 92 92 Oxygen Delivery Method Fraction of Inspired Oxygen 70 Sepsis Recent Fever Within 48 Hours Sepsis New/Unexplained Change in Mental Status Sepsis Action Taken by Nursing End-Tidal CO2 46 46 10/10/21 21:57 10/10/21 22:06 Temperature Temperature Source Pulse Rate Pulse Rate from SpO2 Sensor Respiratory Rate Respiratory Effort / Characteristics Non-Labored Respiratory Depth Respiratory Pattern Blood Pressure 108/61 Blood Pressure Mean 76 Blood Pressure Position Pulse Oximetry Oxygen Delivery Method Mechanical Vent Fraction of Inspired Oxygen Sepsis Recent Fever Within 48 Hours Sepsis New/Unexplained Change in Mental Status Sepsis Action Taken by Nursing End-Tidal CO2 Home Medications Current Medication List: was personally reviewed by me Laboratory Data Attestation: I reviewed the patient's lab results. Result diagrams: 10/10/21 19:53 10/10/21 19:53 Lab Results 10/10/21 10/10/21 10/10/21 Range/Units 19:52 19:53 19:53 WBC 15.42 H (4.8-10.8) K/uL RBC 4.40 (4.2-5.4) M/uL Hgb 11.2 L (12.0-16.0) g/dL POC Hgb (12.0-16.0) g/dl Hct 36.2 L (37-47) % POC Hct (37-47) % MCV 82.3 (80-100) fL MCH 25.5 (25-34) pg MCHC 30.9 L (32-36) g/dL RDW Std Deviation 47.3 H (36.4-46.3) fL RDW Coeff of Derek 15.6 H (11.5-14.5) % Plt Count 571 H (130-400) K/uL MPV 10.3 (7.4-10.4) fL Immature Gran % (Auto) 0.3 % Neut % (Auto) 82.8 % Lymph % (Auto) 14.8 % [place] % (Auto) 1.9 % Eos % (Auto) 0.1 % Baso % (Auto) 0.1 % Neut # (Auto) 12.77 H (1.4-6.5) K/uL Lymph # (Auto) 2.28 (1.2-3.4) K/uL [place] # (Auto) 0.29 (0.11-0.59) K/uL Eos # (Auto) 0.02 (0-0.5) K/uL Baso # (Auto) 0.02 (0-0.2) K/uL Immature Gran # (Auto) 0.04 H (0.00-0.02) K/uL ESR 60 H (0-30) mm/hr PT (9.0-12.0) Seconds INR (0.9-1.1) APTT (21.0-31.0) Seconds PTT Ratio POC pH (7.35-7.45) POC pCO2 (35-46) mmHg POC pO2 (80-95) mmHg POC HCO3 (19-24) kamla/L POC Total CO2 (24-31) mmol/L POC Base Excess (-9-1.8) kamla/L POC ABG O2 Sat (90-95) % VBG pH (7.36-7.41) VBG pCO2 (38-50) mmHg VBG pO2 mmHg VBG HCO3 mmol/L VBG O2 Saturation % VBG Base Excess mEq/L Barometric Pressure mm/Hg POC Sodium (135-144) mmol/L Sodium (136-145) mmol/L POC Potassium (3.3-5.0) mmol/L Potassium (3.5-5.1) mmol/L Chloride (98-107) mmol/L Carbon Dioxide (21-32) mmol/L Anion Gap (3-11) BUN (6-23) mg/dl Creatinine (0.6-1.2) mg/dl Est Cr Clr Drug Dosing ml/min Est GFR ( Amer) ml/min Est GFR (Non-Af Amer) ml/min BUN/Creatinine Ratio (10-20) Glucose (70-99(Fasting)) mg/dl Lactate (0.4-2.0) mmol/L Calcium (8.5-10.1) mg/dl Magnesium (1.7-2.4) mg/dl Total Bilirubin (0.2-1.0) mg/dl AST (13-39) U/L ALT (7-52) U/L Alkaline Phosphatase (34-104) U/L Troponin I (0-0.04) ng/ml C-Reactive Protein (0-0.5) mg/dl B-Natriuretic Peptide (0-100) pg/ml Total Protein (6.0-8.3) gm/dl Albumin (3.4-5.0) gm/dl Globulin (2.5-4.0) gm/dl Albumin/Globulin Ratio (0.9-2) Procalcitonin (0-0.5) ng/ml Urine Color Urine Appearance (Clear) Urine pH (4.5-7.5) Ur Specific Shepherd (1.000-1.030) Urine Protein (Negative) Urine Glucose (UA) (Negative) Urine Ketones (Negative) Urine Blood (Negative) Urine Nitrite (Negative) Urine Bilirubin (Negative) Urine Urobilinogen (Negative) Ur Leukocyte Esterase (Negative) SARS-CoV-2, RNA, NAAT NEGATIVE (NEGATIVE) 10/10/21 10/10/21 10/10/21 Range/Units 19:53 19:53 19:53 WBC (4.8-10.8) K/uL RBC (4.2-5.4) M/uL Hgb (12.0-16.0) g/dL POC Hgb (12.0-16.0) g/dl Hct (37-47) % POC Hct (37-47) % MCV (80-100) fL MCH (25-34) pg MCHC (32-36) g/dL RDW Std Deviation (36.4-46.3) fL RDW Coeff of Derek (11.5-14.5) % Plt Count (130-400) K/uL MPV (7.4-10.4) fL Immature Gran % (Auto) % Neut % (Auto) % Lymph % (Auto) % [place] % (Auto) % Eos % (Auto) % Baso % (Auto) % Neut # (Auto) (1.4-6.5) K/uL Lymph # (Auto) (1.2-3.4) K/uL [place] # (Auto) (0.11-0.59) K/uL Eos # (Auto) (0-0.5) K/uL Baso # (Auto) (0-0.2) K/uL Immature Gran # (Auto) (0.00-0.02) K/uL ESR (0-30) mm/hr PT 29.3 H (9.0-12.0) Seconds INR 3.2 H (0.9-1.1) APTT 37.3 H (21.0-31.0) Seconds PTT Ratio 1.4 POC pH (7.35-7.45) POC pCO2 (35-46) mmHg POC pO2 (80-95) mmHg POC HCO3 (19-24) kamla/L POC Total CO2 (24-31) mmol/L POC Base Excess (-9-1.8) kamla/L POC ABG O2 Sat (90-95) % VBG pH (7.36-7.41) VBG pCO2 (38-50) mmHg VBG pO2 mmHg VBG HCO3 mmol/L VBG O2 Saturation % VBG Base Excess mEq/L Barometric Pressure mm/Hg POC Sodium (135-144) mmol/L Sodium 128 L (136-145) mmol/L POC Potassium (3.3-5.0) mmol/L Potassium 3.8 (3.5-5.1) mmol/L Chloride 87 L (98-107) mmol/L Carbon Dioxide 31 (21-32) mmol/L Anion Gap 10 (3-11) BUN 16 (6-23) mg/dl Creatinine 0.76 (0.6-1.2) mg/dl Est Cr Clr Drug Dosing 45.1 ml/min Est GFR ( Amer) 84.7 ml/min Est GFR (Non-Af Amer) 73.1 ml/min BUN/Creatinine Ratio 21.1 H (10-20) Glucose 332 H* (70-99(Fasting)) mg/dl Lactate 5.1 H* (0.4-2.0) mmol/L Calcium 9.3 (8.5-10.1) mg/dl Magnesium 1.9 (1.7-2.4) mg/dl Total Bilirubin 0.5 (0.2-1.0) mg/dl AST 29 (13-39) U/L ALT 16 (7-52) U/L Alkaline Phosphatase 89 (34-104) U/L Troponin I 0.05 H* (0-0.04) ng/ml C-Reactive Protein 1.68 H (0-0.5) mg/dl B-Natriuretic Peptide (0-100) pg/ml Total Protein 6.9 (6.0-8.3) gm/dl Albumin 3.7 (3.4-5.0) gm/dl Globulin 3.2 (2.5-4.0) gm/dl Albumin/Globulin Ratio 1.2 (0.9-2) Procalcitonin (0-0.5) ng/ml Urine Color Urine Appearance (Clear) Urine pH (4.5-7.5) Ur Specific Shepherd (1.000-1.030) Urine Protein (Negative) Urine Glucose (UA) (Negative) Urine Ketones (Negative) Urine Blood (Negative) Urine Nitrite (Negative) Urine Bilirubin (Negative) Urine Urobilinogen (Negative) Ur Leukocyte Esterase (Negative) SARS-CoV-2, RNA, NAAT (NEGATIVE) 10/10/21 10/10/21 10/10/21 Range/Units 19:53 19:53 20:03 WBC (4.8-10.8) K/uL RBC (4.2-5.4) M/uL Hgb (12.0-16.0) g/dL POC Hgb (12.0-16.0) g/dl Hct (37-47) % POC Hct (37-47) % MCV (80-100) fL MCH (25-34) pg MCHC (32-36) g/dL RDW Std Deviation (36.4-46.3) fL RDW Coeff of Derek (11.5-14.5) % Plt Count (130-400) K/uL MPV (7.4-10.4) fL Immature Gran % (Auto) % Neut % (Auto) % Lymph % (Auto) % [place] % (Auto) % Eos % (Auto) % Baso % (Auto) % Neut # (Auto) (1.4-6.5) K/uL Lymph # (Auto) (1.2-3.4) K/uL [place] # (Auto) (0.11-0.59) K/uL Eos # (Auto) (0-0.5) K/uL Baso # (Auto) (0-0.2) K/uL Immature Gran # (Auto) (0.00-0.02) K/uL ESR (0-30) mm/hr PT (9.0-12.0) Seconds INR (0.9-1.1) APTT (21.0-31.0) Seconds PTT Ratio POC pH (7.35-7.45) POC pCO2 (35-46) mmHg POC pO2 (80-95) mmHg POC HCO3 (19-24) kamla/L POC Total CO2 (24-31) mmol/L POC Base Excess (-9-1.8) kamla/L POC ABG O2 Sat (90-95) % VBG pH 7.14 L (7.36-7.41) VBG pCO2 97 H (38-50) mmHg VBG pO2 31 mmHg VBG HCO3 32 mmol/L VBG O2 Saturation < 60.0 % VBG Base Excess 0.4 mEq/L Barometric Pressure 727.9 mm/Hg POC Sodium (135-144) mmol/L Sodium (136-145) mmol/L POC Potassium (3.3-5.0) mmol/L Potassium (3.5-5.1) mmol/L Chloride (98-107) mmol/L Carbon Dioxide (21-32) mmol/L Anion Gap (3-11) BUN (6-23) mg/dl Creatinine (0.6-1.2) mg/dl Est Cr Clr Drug Dosing ml/min Est GFR ( Amer) ml/min Est GFR (Non-Af Amer) ml/min BUN/Creatinine Ratio (10-20) Glucose (70-99(Fasting)) mg/dl Lactate (0.4-2.0) mmol/L Calcium (8.5-10.1) mg/dl Magnesium (1.7-2.4) mg/dl Total Bilirubin (0.2-1.0) mg/dl AST (13-39) U/L ALT (7-52) U/L Alkaline Phosphatase (34-104) U/L Troponin I (0-0.04) ng/ml C-Reactive Protein (0-0.5) mg/dl B-Natriuretic Peptide 997 H (0-100) pg/ml Total Protein (6.0-8.3) gm/dl Albumin (3.4-5.0) gm/dl Globulin (2.5-4.0) gm/dl Albumin/Globulin Ratio (0.9-2) Procalcitonin < 0.05 (0-0.5) ng/ml Urine Color Urine Appearance (Clear) Urine pH (4.5-7.5) Ur Specific Shepherd (1.000-1.030) Urine Protein (Negative) Urine Glucose (UA) (Negative) Urine Ketones (Negative) Urine Blood (Negative) Urine Nitrite (Negative) Urine Bilirubin (Negative) Urine Urobilinogen (Negative) Ur Leukocyte Esterase (Negative) SARS-CoV-2, RNA, NAAT (NEGATIVE) 10/10/21 10/10/21 10/10/21 Range/Units 20:05 21:40 21:40 WBC (4.8-10.8) K/uL RBC (4.2-5.4) M/uL Hgb (12.0-16.0) g/dL POC Hgb (12.0-16.0) g/dl Hct (37-47) % POC Hct (37-47) % MCV (80-100) fL MCH (25-34) pg MCHC (32-36) g/dL RDW Std Deviation (36.4-46.3) fL RDW Coeff of Derek (11.5-14.5) % Plt Count (130-400) K/uL MPV (7.4-10.4) fL Immature Gran % (Auto) % Neut % (Auto) % Lymph % (Auto) % [place] % (Auto) % Eos % (Auto) % Baso % (Auto) % Neut # (Auto) (1.4-6.5) K/uL Lymph # (Auto) (1.2-3.4) K/uL [place] # (Auto) (0.11-0.59) K/uL Eos # (Auto) (0-0.5) K/uL Baso # (Auto) (0-0.2) K/uL Immature Gran # (Auto) (0.00-0.02) K/uL ESR (0-30) mm/hr PT (9.0-12.0) Seconds INR (0.9-1.1) APTT (21.0-31.0) Seconds PTT Ratio POC pH (7.35-7.45) POC pCO2 (35-46) mmHg POC pO2 (80-95) mmHg POC HCO3 (19-24) kamla/L POC Total CO2 (24-31) mmol/L POC Base Excess (-9-1.8) kamla/L POC ABG O2 Sat (90-95) % VBG pH (7.36-7.41) VBG pCO2 (38-50) mmHg VBG pO2 mmHg VBG HCO3 mmol/L VBG O2 Saturation % VBG Base Excess mEq/L Barometric Pressure mm/Hg POC Sodium (135-144) mmol/L Sodium (136-145) mmol/L POC Potassium (3.3-5.0) mmol/L Potassium (3.5-5.1) mmol/L Chloride (98-107) mmol/L Carbon Dioxide (21-32) mmol/L Anion Gap (3-11) BUN (6-23) mg/dl Creatinine (0.6-1.2) mg/dl Est Cr Clr Drug Dosing ml/min Est GFR ( Amer) ml/min Est GFR (Non-Af Amer) ml/min BUN/Creatinine Ratio (10-20) Glucose (70-99(Fasting)) mg/dl Lactate 1.6 (0.4-2.0) mmol/L Calcium (8.5-10.1) mg/dl Magnesium (1.7-2.4) mg/dl Total Bilirubin (0.2-1.0) mg/dl AST (13-39) U/L ALT (7-52) U/L Alkaline Phosphatase (34-104) U/L Troponin I 0.15 H* (0-0.04) ng/ml C-Reactive Protein (0-0.5) mg/dl B-Natriuretic Peptide (0-100) pg/ml Total Protein (6.0-8.3) gm/dl Albumin (3.4-5.0) gm/dl Globulin (2.5-4.0) gm/dl Albumin/Globulin Ratio (0.9-2) Procalcitonin (0-0.5) ng/ml Urine Color Dark Yellow Urine Appearance Clear (Clear) Urine pH 6.5 (4.5-7.5) Ur Specific Shepherd 1.017 (1.000-1.030) Urine Protein Negative (Negative) Urine Glucose (UA) Negative (Negative) Urine Ketones Negative (Negative) Urine Blood Negative (Negative) Urine Nitrite Negative (Negative) Urine Bilirubin Negative (Negative) Urine Urobilinogen Negative (Negative) Ur Leukocyte Esterase Negative (Negative) SARS-CoV-2, RNA, NAAT (NEGATIVE) 10/10/21 Range/Units 21:41 WBC (4.8-10.8) K/uL RBC (4.2-5.4) M/uL Hgb (12.0-16.0) g/dL POC Hgb 10.5 L (12.0-16.0) g/dl Hct (37-47) % POC Hct 31 L (37-47) % MCV (80-100) fL MCH (25-34) pg MCHC (32-36) g/dL RDW Std Deviation (36.4-46.3) fL RDW Coeff of Derek (11.5-14.5) % Plt Count (130-400) K/uL MPV (7.4-10.4) fL Immature Gran % (Auto) % Neut % (Auto) % Lymph % (Auto) % [place] % (Auto) % Eos % (Auto) % Baso % (Auto) % Neut # (Auto) (1.4-6.5) K/uL Lymph # (Auto) (1.2-3.4) K/uL [place] # (Auto) (0.11-0.59) K/uL Eos # (Auto) (0-0.5) K/uL Baso # (Auto) (0-0.2) K/uL Immature Gran # (Auto) (0.00-0.02) K/uL ESR (0-30) mm/hr PT (9.0-12.0) Seconds INR (0.9-1.1) APTT (21.0-31.0) Seconds PTT Ratio POC pH 7.18 L* (7.35-7.45) POC pCO2 86 H (35-46) mmHg POC pO2 98 H (80-95) mmHg POC HCO3 32 H (19-24) kamla/L POC Total CO2 35 H (24-31) mmol/L POC Base Excess 4.0 H (-9-1.8) kamla/L POC ABG O2 Sat 95.0 (90-95) % VBG pH (7.36-7.41) VBG pCO2 (38-50) mmHg VBG pO2 mmHg VBG HCO3 mmol/L VBG O2 Saturation % VBG Base Excess mEq/L Barometric Pressure mm/Hg POC Sodium 129 L (135-144) mmol/L Sodium (136-145) mmol/L POC Potassium 3.5 (3.3-5.0) mmol/L Potassium (3.5-5.1) mmol/L Chloride (98-107) mmol/L Carbon Dioxide (21-32) mmol/L Anion Gap (3-11) BUN (6-23) mg/dl Creatinine (0.6-1.2) mg/dl Est Cr Clr Drug Dosing ml/min Est GFR ( Amer) ml/min Est GFR (Non-Af Amer) ml/min BUN/Creatinine Ratio (10-20) Glucose (70-99(Fasting)) mg/dl Lactate (0.4-2.0) mmol/L Calcium (8.5-10.1) mg/dl Magnesium (1.7-2.4) mg/dl Total Bilirubin (0.2-1.0) mg/dl AST (13-39) U/L ALT (7-52) U/L Alkaline Phosphatase (34-104) U/L Troponin I (0-0.04) ng/ml C-Reactive Protein (0-0.5) mg/dl B-Natriuretic Peptide (0-100) pg/ml Total Protein (6.0-8.3) gm/dl Albumin (3.4-5.0) gm/dl Globulin (2.5-4.0) gm/dl Albumin/Globulin Ratio (0.9-2) Procalcitonin (0-0.5) ng/ml Urine Color Urine Appearance (Clear) Urine pH (4.5-7.5) Ur Specific Shepherd (1.000-1.030) Urine Protein (Negative) Urine Glucose (UA) (Negative) Urine Ketones (Negative) Urine Blood (Negative) Urine Nitrite (Negative) Urine Bilirubin (Negative) Urine Urobilinogen (Negative) Ur Leukocyte Esterase (Negative) SARS-CoV-2, RNA, NAAT (NEGATIVE) Administered Medications Magnesium Sulfate/Dextrose (Magnesium Sulfate / D5w) 1 gm in 100 mls @ 50 mls/hr IV ONE ONE Stop: 10/10/21 22:56 Last Admin: 10/10/21 21:07 Dose: 50 mls/hr Documented by: [id number] Doxycycline Hyclate 100 mg/ (Dextrose) 110 mls @ 50 mls/hr IV 2130 ONE Stop: 10/10/21 23:41 Last Admin: 10/10/21 21:55 Dose: 50 mls/hr Documented by: [id number] Potassium Chloride (K Mario Alberto / Wtr) 10 meq in 100 mls @ 100 mls/hr IV Q1H STA; Protocol Stop: 10/10/21 22:52 Last Admin: 10/10/21 22:04 Dose: 100 mls/hr Documented by: [id number] Discontinued Medications Furosemide (Furosemide Inj 20 Mg/2 Ml Vial) 20 mg IV ONE ONE Stop: 10/10/21 21:01 Last Admin: 10/10/21 21:07 Dose: Not Given Documented by: [id number] Furosemide (Furosemide 40 Mg/4 Ml Vial) Confirm Administered Dose 40 mg IV .STK- MED ONE Stop: 10/10/21 21:07 Last Admin: 10/10/21 21:07 Dose: Not Given Documented by: [id number] Cefepime HCl (Maxipime) 2,000 mg in 20 mls @ 5 mls/min IV NOW STA; Protocol Stop: 10/10/21 20:37 Last Admin: 10/10/21 20:59 Dose: 5 mls/min Documented by: [id number] Propofol (Diprivan) 1,000 mg in 100 mls @ 0 mls/hr IV .Q0M JOHN; Protocol Stop: 10/13/21 20:59 Last Titration: 10/10/21 21:01 Dose: 0 mcg/kg/min, 0 mls/hr Documented by: [id number] Admin: 10/10/21 20:50 Dose: 13.94 mcg/kg/min, 5 mls/hr Documented by: [id number] Cosigned by: [id number] Sodium Chloride (Nss 1000ml) 1,000 mls @ 999 mls/hr IV .Q1H1M ONE Stop: 10/10/21 21:57 Last Infusion: 10/10/21 22:04 Dose: 0 mls/hr Documented by: [id number] Admin: 10/10/21 21:02 Dose: 999 mls/hr Documented by: [id number] Sodium Chloride (Nss 1000ml) 1,000 mls @ 999 mls/hr IV .Q1H1M ONE Stop: 10/10/21 22:14 Last Admin: 10/10/21 21:32 Dose: 999 mls/hr Documented by: [id number] Miscellaneous (Rapid Sequence Induction Bag) Confirm Administered Dose 1 ea .ROUTE .STK-MED ONE Stop: 10/10/21 20:18 Last Admin: 10/10/21 20:40 Dose: 1 ea Documented by: [id number] Miscellaneous (Stat Iv Infusion Titration Per Protocol) 1 ea N/A NOW STA Stop: 10/10/21 20:53 Last Admin: 10/10/21 20:59 Dose: 1 ea Documented by: [id number] Miscellaneous (Stat Iv Infusion Titration Per Protocol) 1 ea N/A NOW STA Stop: 10/10/21 21:54 Last Admin: 02/09/22 22:04 Dose: 1 ea Documented by: [id number] Norepinephrine Bitartrate (Norepinephrine/D5w 8 Mg/508 Ml) Confirm Administered Dose 8 mg IV .STK-MED ONE Stop: 10/10/21 21:10 Last Admin: 10/10/21 21:32 Dose: Not Given Documented by: [id number] Propofol (Propofol Iv Emulsion 10 Mg/Ml 100 Ml Vial) Confirm Administered Dose 1,000 mg IV .STK-MED ONE Stop: 10/10/21 20:46 Last Admin: 10/10/21 20:59 Dose: Not Given Documented by: [id number] Imaging Data Radiologist's Impression: Chest X-Ray 10/10/21 19:46 XR chest 1V portable HISTORY: Shortness of breath. SEPSIS COMPARISON: Chest 08/04/2021. FINDINGS: No pneumothorax. The cardiac silhouette remains mildly enlarged. There is progressive diffuse interstitial/vascular thickening consistent with mild pulmonary edema. Small bilateral pleural effusions and bibasilar densities have also progressed. IMPRESSION: 1. Interval development of the pulmonary edema and small bilateral pleural effusions. 2. Bibasilar densities are nonspecific but could be due to atelectasis from the pleural effusions or a pneumonia. ACT 112: Negative or not required by law. Electronically signed by: Robert Zendejas M.D. 10/10/2021 9:00 PM Chest X-Ray 10/10/21 20:34 XR chest 1V portable HISTORY: Shortness of breath. post intubation COMPARISON: Chest 10/10/2021. FINDINGS: The endotracheal tube terminates 1.8 cm from the jessica. No pneumothorax. Pulmonary edema, small bilateral pleural effusions, bibasilar densities are again noted. This is similar to the prior study. The heart remains mildly enlarged. IMPRESSION: 1. Endotracheal tube terminates 1.8 cm from the jessica. 2. Redemonstration of the pulmonary edema, small bilateral pleural effusions, and bibasilar densities. ACT 112: Negative or not required by law. Electronically signed by: Robert Zendejas M.D. 10/10/2021 9:01 PM Discharge Plan Visit Data Chief Complaint: Respiratory Distress Stated Complaint: RESPIRATORY DISTRESS ED Provider: Elmer Mcclellan Discharge Problem: Respiratory failure, Edema, Hypoxia, Acidosis, lactic, Metabolic acidosis, Pulmonary edema Patient Disposition: Being Evaluated by Hospitalist Forms Stand Alone Forms: My [facility] Prescriptions Prescriptions: No Action ipratropium-albuterol 0.5 mg-3 mg(2.5 mg base)/3 mL solution for nebulization 3 ml INHALATION Q4 PRN (Reason: cough,sob,wheezing) Qty: 180 RF: 5 albuterol sulfate 90 mcg/actuation HFA aerosol inhaler 2 inh inhalation Q4 PRN (Reason: cough,sob,wheezing) Qty: 8.5 RF: 5 prednisone 10 mg tablet See Rx Instructions PO DAILY Qty: 36 RF: 0 doxycycline hyclate 100 mg capsule 100 mg PO BID Qty: 20 RF: 0 multivitamin [One-A-Day Essential] tablet 1 tab PO DAILY RF: 0 (DME) Oxygen Home Liters Per Minute See Dose Instructions .ROUTE .MEDSUPPLY Qty: 1 RF: 0 amlodipine 5 mg tablet 5 mg PO DAILY Qty: 1 RF: 0 insulin glargine 100 unit/mL solution 12 unit subcut DAILY RF: 0 metformin 1,000 mg tablet 1,000 mg PO BID Qty: 180 RF: 0 sotalol 80 mg tablet 80 mg PO Q12 RF: 0 (DME) nebulizers misc See Dose Instructions .ROUTE .MEDSUPPLY Qty: 1 RF: 0 Caltrate + D3 Plus Minerals 300 mg-800 unit -25 mg-0.5 mg tablet 1 tab PO BID RF: 0 (DME) Portable Oxygen Misc See Rx Instructions .ROUTE .MEDSUPPLY Qty: 1 RF: 0 (DME) Fernando Hose Misc See Rx Instructions .Route Qty: 2 RF: 1 aspirin [Aspirin Childrens] 81 mg Tablet,Chewable 81 mg PO DAILY RF: 0 lisinopril-hydrochlorothiazide 20-25 mg tablet 1 tab PO DAILY RF: 0 warfarin 2.5 mg Tablet 2.5 - 5 mg PO DIRECTED RF: 0 ipratropium-albuterol 0.5 mg-3 mg(2.5 mg base)/3 mL solution for nebulization 3 ml INHALATION Q4 PRN (Reason: .COUGH, SOB, WHEEZING) RF: 0 Bevespi Aerosphere 9-4.8 mcg HFA aerosol inhaler 2 puff INHALATION BID RF: 0 Referrals Referrals: Radha Beck, DO [Primary Care Provider] -
[2021-10-10 20:08] LABS: Base Excess VBG 0.4 mEq/L; HCO3 VBG 32 mmol/L; PCO2 VBG 97 mmHg (38-50); PO2 VBG 31 mmHg; pH VBG 7.14 (7.36-7.41)
[2021-10-10 20:15] LABS: INR 3.2 (0.9-1.1); Oxygen Saturation VBG < 60.0 %; Partial Thromboplastin Ratio 1.4; Partial Thromboplastin Time 37.3 Seconds (21.0-31.0); Prothrombin Time 29.3 Seconds (9.0-12.0)
[2021-10-10] MEDS ORDERED: RAPID SEQUENCE INDUCTION BAG ONE (20:17)
[2021-10-10 20:18] LABS: Appearance Urine Clear (Clear); Bilirubin Urine Negative (Negative); Blood Urine Negative (Negative); Color Urine Dark Yellow; Glucose Urine UA Negative (Negative); Ketones Urine Negative (Negative); Leukocyte Esterase Urine Negative (Negative); Nitrite Urine Negative (Negative); Protein Urine Negative (Negative); Specific Gravity Urine 1.017 (1.000-1.030); Urobilinogen Urine Negative (Negative); pH Urine 6.5 (4.5-7.5)
[2021-10-10 20:30] LABS: Albumin Globulin Ratio 1.2 (0.9-2); Albumin Level 3.7 gm/dl (3.4-5.0); BUN Creatinine Ratio 21.1 (10-20); Bilirubin,Total 0.5 mg/dl (0.2-1.0); C Reactive Protein 1.68 mg/dl (0-0.5); Calcium 9.3 mg/dl (8.5-10.1); Creatinine Clr Calc Pharmacy 45.1 ml/min; Est GFR (African American) 84.7 ml/min; Est GFR (Non-African American) 73.1 ml/min; Globulin 3.2 gm/dl (2.5-4.0); Magnesium 1.9 mg/dl (1.7-2.4); Potassium 3.8 mmol/L (3.5-5.1); Total Protein 6.9 gm/dl (6.0-8.3)
[2021-10-10] MEDS ORDERED: CEFEPIME 2,000 MG/20 ML VIAL IV STA (20:34)
[2021-10-10] MEDS ORDERED: PROPOFOL IV EMULSION 10 MG/ML 100 ML VIAL IV ONE (20:45)
[2021-10-10] MEDS ORDERED: STAT IV Infusion **Titration per Protocol STA ×4 (20:52→23:43)
[2021-10-10] MEDS ORDERED: PROPOFOL BOLUS FROM BAG IV PRN ×2 (20:52→23:43)
[2021-10-10] MEDS ORDERED: MAGNESIUM SULFATE / D5W 1 GM/100 ML BAG IV ONE (20:57)
[2021-10-10] MEDS ORDERED: SODIUM CHLORIDE 0.9% 1000ML 1,000 ML IV ONE ×2 (20:57→21:14)
[2021-10-10] MEDS ORDERED: FUROSEMIDE INJ 20 MG/2 ML VIAL IV ONE (21:00)
[2021-10-10] MEDS ORDERED: propofoL 1,000 MG/100 ML VIAL IV SCH ×2 (21:00→23:45)
--- NOTE | 2021-10-10 21:01 | XRay Report ---
XR chest 1V portable HISTORY: Shortness of breath. SEPSIS COMPARISON: Chest 08/04/2021. FINDINGS: No pneumothorax. The cardiac silhouette remains mildly enlarged. There is progressive diffu se interstitial/vascular thickening consistent with mild pulmonary edema. Small bilateral pleural eff usions and bibasilar densities have also progressed. IMPRESSION: 1. Interval development of the pulmonary edema and small bilateral pleural effusions. 2. Bibasilar densities are nonspecific but could be due to atelectasis from the pleural effusions or a pneumonia. ACT 112: Negative or not required by law. Electronically signed by: Robert Zendejas M.D. 10/10/2021 9:00 PM
--- NOTE | 2021-10-10 21:03 | XRay Report ---
XR chest 1V portable HISTORY: Shortness of breath. post intubation COMPARISON: Chest 10/10/2021. FINDINGS: The endotracheal tube terminates 1.8 cm from the jessica. No pneumothorax. Pulmonary edema, small bilateral pleural effusions, bibasilar densities are again noted. This is similar to the prior study. The heart remains mildly enlarged. IMPRESSION: 1. Endotracheal tube terminates 1.8 cm from the jessica. 2. Redemonstration of the pulmonary edema, small bilateral pleural effusions, and bibasilar densities . ACT 112: Negative or not required by law. Electronically signed by: Robert Zendejas M.D. 10/10/2021 9:01 PM
[2021-10-10] MEDS ORDERED: FUROSEMIDE 40 MG/4 ML VIAL IV ONE (21:06)
[2021-10-10] MEDS ORDERED: NOREPINEPHRINE/D5W 8 MG/508 ML IV ONE (21:09)
[2021-10-10] MEDS ORDERED: NOREPINEPHRINE/D5W 8 MG/508 ML BAG IV SCH (21:15)
[2021-10-10] MEDS ORDERED: LORazepam 0.5 MG/1 ML VIAL IV PRN (21:21)
[2021-10-10] MEDS ORDERED: DOXYCYCLINE HYCLATE 100 MG in DEXTROSE 5% 100 ML IV ONE (21:30)
--- NOTE | 2021-10-10 21:42 | History & Physical Report ---
Date of Service October 10, 2021 Assessment & Plan (1) Respiratory failure: Plan: Acute on chronic hx chronic respiratory failure secondary to COPD on home O2, pulmonary hypertension Multifactorial : COPD exacerbation secondary to bilateral pneumonia, community-acquired infection, hx of Pseudomonas on prior CS ? Fluid overload, history diastolic dysfunction as per records Severe sepsis SIRS plus hypoxemia plus lactic acidosis secondary to pulmonary infection Acute respiratory acidosis secondary to COPD exacerbation Minimal troponin elevation secondary to illness PAF on Coumadin, patient NSR, INR slightly supratherapeutic hypertension, patient currently hypotensive post propofol administration at the ER DM2 insulin requiring, reasonable control as of recent hemoglobin A1c of 8 last August 2021 Breast cancer status post surgery/radiation chronic anemia, hemoglobin at baseline past tobacco abuse. ICU Vent management Recheck ABG CS, Cefepime, Doxycycline Follow lactic acid Solu-Medrol, nebs RTC Appropriate to hold antihypertensives for now given hypotension Levophed if hypotension persistent. Hold propofol for now given hypotension, utilize intermittent Ativan for sedation Lasix 1 dose once BP stable. Follow troponin, TTE if with significant progression IV insulin BG goal 1 40-1 80 DVT prophylaxis. Coumadin INR goal between 2 and 3 Full code as per daughter, Ms. Madina Freitas. She requests updates from providers thru [phone]. Total critical care time was 45 minutes. Text document was generated using [employer] voice recognition software. It may contain grammatical or spelling errors. Kindly contact undersigned for clarification of any documentation item in question. History of Present Illness Chief Complaint: Worsening shortness of breath as per records Primary Care Provider: Radha Beck, DO History obtained from ER provider, family, and records. Unable to obtain history from patient secondary to intubated state. Medical history significant for chronic respiratory failure secondary to COPD on home O2, diastolic dysfunction as per records (EF 55 to 60%, TTE 2020), PAF on Coumadin, hypertension, pulmonary hypertension as per records, DM2 insulin requiring breast cancer status post surgery/radiation, chronic anemia (baseline hemoglobin 10-11), past tobacco abuse. Last confinement August 2021 for sepsis secondary to COPD exacerbation secondary to pneumonia. Sputum CS grew Pseudomonas and Aspergillus fumigatus. Dimasisinger ID recommended Cefepime and Doxycycline course. Sputum for fungal smear and CS studies and serum Aspergillus antigen drawn. Treatment for Aspergillus not recommended unless with solid evidence of entrenched infection and repeated positive CS as per documentation. 3 days history of worsening junky cough symptoms and shortness of breath. No aspiration concerns or weight gain as per daughter. No known recent sick cont acts as per daughter. Patient has not received COVID-19 vaccination. Transient achy headache symptoms. PCP prescribed outpatient doxycycline and prednisone course for COPD rescue today as per daughter. Patient more confused than usual as per daughter today. Patient has not started prescriptions as per family. O2 sats 70s upon EMS arrival. Patient received neb treatment and steroid Rx in route to the hospital. BiPAP initiated by EMS. At the ER, IV cefepime administered at the ER. Subsequent intubation done for worsening respiratory distress. Propofol initiated for sedation. SBP later noted to be 70s. Medical History as above Surgical History : Breast biopsy/surgery/partial mastectomy left carpal tunnel surgery, colpocleisis, dental surgery, BTL Family History : Breast cancer, DM, heart disease Personal/Social history : Past tobacco abuse, no EtOH intake, retired bank vice president research Allergies Allergy/AdvReac Type Severity Reaction Status Date / Time amoxicillin [From Augmentin] AdvReac Intermediate red - Verified 10/11/21 06:05 itchy hands clavulanic acid AdvReac Intermediate red - Verified 10/11/21 06:05 [From Augmentin] itchy hands Home Medications Medication Instructions Recorded Confirmed Type Oxygen Home #1 ea 06/01/19 10/10/21 Rx multivitamin (One-A-Day Essential) 1 tab PO DAILY 06/01/19 10/10/21 History nebulizers #1 ea 06/10/19 10/10/21 Rx Portable Oxygen #1 ea 05/04/20 10/10/21 Rx amlodipine 5 mg tablet 5 mg PO DAILY #1 tab 05/04/20 10/10/21 History calcium carb 300 mg-D3 800 1 tab PO BID tab 05/04/20 10/10/21 History unit-mag ox 25 mg-copper roller handler printing 0.5 mg-rashid-Zn tablet (Caltrate + D3 Plus Minerals) insulin glargine 100 unit/mL 12 unit SUBCUT DAILY ml 05/04/20 10/10/21 History subcutaneous solution metformin 1,000 mg tablet 1,000 mg PO BID #180 tab 05/04/20 10/10/21 History sotalol 80 mg tablet 80 mg PO Q12 tab 05/04/20 10/10/21 History aspirin 81 mg chewable tablet 81 mg PO DAILY 08/04/21 10/10/21 History (Aspirin Childrens) lisinopril 20 1 tab PO DAILY 08/04/21 10/10/21 History mg-hydrochlorothiazide 25 mg tablet warfarin 2.5 mg tablet 2.5 - 5 mg PO DIRECTED 08/04/21 10/10/21 History Fernando Vasquez #2 ea 08/17/21 10/10/21 Rx ipratropium 0.5 mg-albuterol 3 mg 3 ml INHALATION Q4 PRN #180 vial 09/04/21 10/10/21 Rx (2.5 mg base)/3 mL nebulization soln albuterol sulfate 90 mcg/actuation 2 inh INHALATION Q4 PRN #8.5 g 10/10/21 10/10/21 Rx aerosol inhaler doxycycline hyclate 100 mg capsule 100 mg PO BID #20 cap 10/10/21 10/10/21 Rx glycopyrrolate 9 mcg-formoterol 2 puff INHALATION BID 10/10/21 10/10/21 History 4.8 mcg HFA aerosol inhaler (Bevespi Aerosphere) ipratropium 0.5 mg-albuterol 3 mg 3 ml INHALATION Q4 PRN 10/10/21 10/10/21 History (2.5 mg base)/3 mL nebulization soln prednisone 10 mg tablet See Rx Instructions PO DAILY #36 10/10/21 10/10/21 Rx tab Past Med/Surg History Medical History CHF (congestive heart failure) (12/07/13) Chronic dyspnea Chronic respiratory failure with hypoxia COPD (chronic obstructive pulmonary disease) COPD exacerbation (12/07/13) DCIS (ductal carcinoma in situ) of breast Diabetes Hypertension Insulin dependent diabetes mellitus Paroxysmal atrial fibrillation Respiratory failure with hypoxia Surgical History History of carpal tunnel release History of dental surgery History of partial mastectomy History of tubal ligation Family History Mother Diabetes Other Breast cancer Deep vein thrombosis Social History Smoking Status: Unknown if ever smoked packs per day: 0.5; Years Smoked: 20; Second Hand Exposure: Yes; Preferred Language: Arabic Communication Ability: Impaired Drywaller Required: No Beliefs That Will Affect Care: None marital status: / Current Living Situation: Alone Current Living Situation Comment: [facility] How many Children do You have: 2 Other Information That Helps Us Care for You: No Feels Safe at Home: Yes Assistive Devices: Glasses Review of Systems Review of Systems: Could not be reliably obtained secondary to intubated state. Physical Exam Physical Exam: GENERAL: Sedated, intubated SKIN: Pallor,, warm HEENT: Pale palpebral conjunctivae, no ptosis, dry buccal mucosa, ET in place NECK : Supple, no tenderness CHEST : Decreased breath sounds, no tenderness HEART : Tachycardic, no obvious murmurs ABDOMEN: Some distention, nontender EXTREMITIES : Minimal LE swelling, no LE tenderness, no other conspicuous deformities noted NEUROLOGIC : Sedated, no facial asymmetry, gait and stance not assessed Results & Data Results & Data ([facility]) Vital Signs (Past 12 Hours) Vital Signs Temp Pulse Resp BP Pulse Ox 10/10/21 21:38 102 H 22 107/66 92 10/10/21 21:33 105 H 22 112/64 92 10/10/21 21:30 108 H 22 93 10/10/21 21:27 101 H 22 102/59 L 93 10/10/21 21:24 111 H 22 94 10/10/21 21:21 111 H 22 101/56 L 94 10/10/21 21:20 111 H 22 94 10/10/21 21:18 112 H 22 105/57 L 95 10/10/21 21:13 111 H 22 100/56 L 10/10/21 21:10 96/56 L 10/10/21 21:04 92/56 L 10/10/21 20:57 80/42 L 10/10/21 20:54 76/44 L 10/10/21 20:45 100 H 22 96 10/10/21 20:30 113 H 30 H 99 10/10/21 20:20 99 10/10/21 20:13 112 H 12 153/75 H 99 10/10/21 20:10 98 10/10/21 20:03 28 H 95 10/10/21 19:54 36.8 C 105 H 26 H 145/80 H 78 L 10/10/21 19:53 92 10/10/21 19:52 28 H 145/80 H 99 Laboratory Results Laboratory Results WBC 15.42 K/uL (4.8-10.8) H 10/10/21 19:53 RBC 4.40 M/uL (4.2-5.4) 10/10/21 19:53 Hgb 11.2 g/dL (12.0-16.0) L 10/10/21 19:53 Hct 36.2 % (37-47) L 10/10/21 19:53 MCV 82.3 fL (80-100) 10/10/21 19:53 MCH 25.5 pg (25-34) 10/10/21 19:53 MCHC 30.9 g/dL (32-36) L 10/10/21 19:53 RDW Std Deviation 47.3 fL (36.4-46.3) H 10/10/21 19:53 RDW Coeff of Derek 15.6 % (11.5-14.5) H 10/10/21 19:53 Plt Count 571 K/uL (130-400) H 10/10/21 19:53 MPV 10.3 fL (7.4-10.4) 10/10/21 19:53 Immature Gran % (Auto) 0.3 % 10/10/21 19:53 Neut % (Auto) 82.8 % 10/10/21 19:53 Lymph % (Auto) 14.8 % 10/10/21 19:53 Snyder % (Auto) 1.9 % 10/10/21 19:53 Eos % (Auto) 0.1 % 10/10/21 19:53 Baso % (Auto) 0.1 % 10/10/21 19:53 Neut # (Auto) 12.77 K/uL (1.4-6.5) H 10/10/21 19:53 Lymph # (Auto) 2.28 K/uL (1.2-3.4) 10/10/21 19:53 Snyder # (Auto) 0.29 K/uL (0.11-0.59) 10/10/21 19:53 Eos # (Auto) 0.02 K/uL (0-0.5) 10/10/21 19:53 Baso # (Auto) 0.02 K/uL (0-0.2) 10/10/21 19:53 Immature Gran # (Auto) 0.04 K/uL (0.00-0.02) H 10/10/21 19:53 ESR 60 mm/hr (0-30) H 10/10/21 19:53 PT 29.3 Seconds (9.0-12.0) H 10/10/21 19:53 INR 3.2 (0.9-1.1) H 10/10/21 19:53 APTT 37.3 Seconds (21.0-31.0) H 10/10/21 19:53 PTT Ratio 1.4 10/10/21 19:53 VBG pH 7.14 (7.36-7.41) L 10/10/21 19:53 VBG pCO2 97 mmHg (38-50) H 10/10/21 19:53 VBG pO2 31 mmHg 10/10/21 19:53 VBG HCO3 32 mmol/L 10/10/21 19:53 VBG O2 Saturation < 60.0 % 10/10/21 19:53 VBG Base Excess 0.4 mEq/L 10/10/21 19:53 Barometric Pressure 727.9 mm/Hg 10/10/21 19:53 Sodium 128 mmol/L (136-145) L 10/10/21 19:53 Potassium 3.8 mmol/L (3.5-5.1) 10/10/21 19:53 Chloride 87 mmol/L (98-107) L 10/10/21 19:53 Carbon Dioxide 31 mmol/L (21-32) 10/10/21 19:53 Anion Gap 10 (3-11) 10/10/21 19:53 BUN 16 mg/dl (6-23) 10/10/21 19:53 Creatinine 0.76 mg/dl (0.6-1.2) 10/10/21 19:53 Est Cr Clr Drug Dosing 45.1 ml/min 10/10/21 19:53 Est GFR ( Amer) 84.7 ml/min 10/10/21 19:53 Est GFR (Non-Af Amer) 73.1 ml/min 10/10/21 19:53 BUN/Creatinine Ratio 21.1 (10-20) H 10/10/21 19:53 Glucose 332 mg/dl (70-99(Fasting)) H* 10/10/21 19:53 Lactate 5.1 mmol/L (0.4-2.0) H* 10/10/21 19:53 Calcium 9.3 mg/dl (8.5-10.1) 10/10/21 19:53 Magnesium 1.9 mg/dl (1.7-2.4) 10/10/21 19:53 Total Bilirubin 0.5 mg/dl (0.2-1.0) 10/10/21 19:53 AST 29 U/L (13-39) 10/10/21 19:53 ALT 16 U/L (7-52) 10/10/21 19:53 Alkaline Phosphatase 89 U/L (34-104) 10/10/21 19:53 Troponin I 0.05 ng/ml (0-0.04) H* 10/10/21 19:53 C-Reactive Protein 1.68 mg/dl (0-0.5) H 10/10/21 19:53 B-Natriuretic Peptide 997 pg/ml (0-100) H 10/10/21 20:03 Total Protein 6.9 gm/dl (6.0-8.3) 10/10/21 19:53 Albumin 3.7 gm/dl (3.4-5.0) 10/10/21 19:53 Globulin 3.2 gm/dl (2.5-4.0) 10/10/21 19:53 Albumin/Globulin Ratio 1.2 (0.9-2) 10/10/21 19:53 Procalcitonin < 0.05 ng/ml (0-0.5) 10/10/21 19:53 Urine Color Dark Yellow 10/10/21 20:05 Urine Appearance Clear (Clear) 10/10/21 20:05 Urine pH 6.5 (4.5-7.5) 10/10/21 20:05 Ur Specific Malo 1.017 (1.000-1.030) 10/10/21 20:05 Urine Protein Negative (Negative) 10/10/21 20:05 Urine Glucose (UA) Negative (Negative) 10/10/21 20:05 Urine Ketones Negative (Negative) 10/10/21 20:05 Urine Blood Negative (Negative) 10/10/21 20:05 Urine Nitrite Negative (Negative) 10/10/21 20:05 Urine Bilirubin Negative (Negative) 10/10/21 20:05 Urine Urobilinogen Negative (Negative) 10/10/21 20:05 Ur Leukocyte Esterase Negative (Negative) 10/10/21 20:05 SARS-CoV-2, RNA, NAAT NEGATIVE (NEGATIVE) 10/10/21 19:52 Impressions Chest X-Ray 10/10/21 20:34 XR chest 1V portable HISTORY: Shortness of breath. post intubation COMPARISON: Chest 10/10/2021. FINDINGS: The endotracheal tube terminates 1.8 cm from the jessica. No pneu mothorax. Pulmonary edema, small bilateral pleural effusions, bibasilar densities are again noted. This is similar to the prior study. The heart remains mildly enlarged. IMPRESSION: 1. Endotracheal tube terminates 1.8 cm from the jessica. 2. Redemonstration of the pulmonary edema, small bilateral pleural effusions, and bibasilar densities. ACT 112: Negative or not required by law. Electronically signed by: Robert Zendejas M.D. 10/10/2021 9:[address] head initial read: Mild central atrophyand periventricular white matter lowdensityconsistent with chronic small vessel disease and or senescent changes. There is no evidence of acute large vessel infarct or intracranial hemorrhage. The paranasal sinuses and mastoid air cells are normal. No skull fracture or scalp hematoma seen. There is a lobular calcified 2.1 cmmass in the sella and suprasellar region suggesting old meningioma. No significant mass-effect upon the brain. The adjacent cerebrumappears unremarkable. EKG as per my interpretation rate 105, sinus tachycardia, LAD, LAFB, LBBB (1) Respiratory failure Chronicity: acute Respiratory failure complication: hypoxia and hypercapnia Qualified Code(s): J96.01 - Acute respiratory failure with hypoxia; J96.02 - Acute respiratory failure with hypercapnia
[2021-10-10] MEDS ORDERED: POTASSIUM CHLORIDE / WTR 10 MEQ/100 ML PLCT IV STA (21:53)
[2021-10-10 21:59] LABS: iSTAT Arterial Blood Gas HCO3 32 meg/L (19-24); iSTAT Arterial Blood Gas pCO2 86 mmHg (35-46); iSTAT Arterial Blood Gas pH 7.18 (7.35-7.45); iSTAT Arterial Blood Gas pO2 98 mmHg (80-95); iSTAT Carbon Dioxide 35 mmol/L (24-31); iSTAT Hematocrit 31 % (37-47); iSTAT Hemoglobin 10.5 g/dl (12.0-16.0); iSTAT Potassium 3.5 mmol/L (3.3-5.0); iSTAT Sodium 129 mmol/L (135-144)
[2021-10-10 22:13] LABS: Troponin I 0.05 ng/ml (0-0.04)
[2021-10-10] MEDS ORDERED: INSULIN PROTOCOL GOAL RANGE ONE (23:38)
--- NOTE | 2021-10-10 23:42 | Critical Care Consultation ---
Date of Consultation October 10, 2021 Assessment & Plan (1) Admitted to intensive care unit: Reason Critically Ill: 81-year-old female presenting with acute on chronic hypoxemic respiratory failure in the setting of likely COPD exasperation with associated pulmonary edema and requiring ongoing ventilatory management status post intubation requirement. NEURO - * CAM ICU: Unable to assess secondary to sedation * Sedation: Propofol * Pain: As needed fentanyl * Altered mental status: * Likely metabolic encephalopathy in the setting of CO2 narcosis, acute of illness, etc. * CT head without acute findings. * Continue to monitor for improvement signs/symptoms with treatment of underlying causes. CARDIAC/VASCULAR - * Hypertension, A. fib, CHF: * Patient would likely benefit from Lasix dosing. * Will hold antihypertensive medications at this time. * Therapeutic INR. * Elevated troponin: * Likely demand in the setting of hypoxemia and respiratory failure. * Trend troponin. * EKG with any changes. * EKG: Sinus tachycardia at 101 bpm. LBBB persists. No other profound findings noted. QTc 492 ms. * Monitor on telemetry. RESPIRATORY - * Acute on chronic hypoxemic respiratory failure: * Likely multifactorial in the setting of pulmonary edema w/ COPD exacerbation. * Primary respiratory acidosis. * Wean ventilatory settings as tolerated. * Scheduled inhalers. * Steroids. * Patient will likely benefit from lasix if BP allows. GI/NUTRITION - * OGT in place. * Prophylaxis: Famotidine RENAL/LYTES - * No significant electrolyte derangements. * Monitor electrolytes, replace appropriately. - * Guan in place - Strict I&Os. ENDO - * Hyperglycemia * BSGs per unit protocol. ISS --> gtt per unit policy. HEME - * Stable H&H * Trend INR in the anticoagulated patient w/ h/o A fib ID - * Initially covered w/ antibiotics w/ concerns for pneumonia. * Will add sputum cultures. LINES/IV ACCESS - * PIVs x2 * ETT * OGT * Guan DVT PROPHYLAXIS - * Coumadin * SCDs I have personally spent 40 minutes of critical care time in the direct management of this patient. This is a life/limb threatening event. This includes time spent evaluating patient, direct bedside care, chart review, placing orders, interpretation of diagnostic studies, discussion with consultants, patient, and family members, as well as other required patient management activities. This time is exclusive of all separately billable procedures, and teaching time and separate from and in addition to any other critical care service time. Thank you for allowing us to participate in the care of this patient. Please refer to my attending physician's documentation for any further recommendations. (2) Respiratory failure: (3) COPD exacerbation: (4) Pulmonary edema: (5) Hypoxia: (6) Diabetes: (7) Hypertension: (8) CHF (congestive heart failure): (9) COPD (chronic obstructive pulmonary disease): History of Present Illness Attending Physician: Lane Reese MD History of Present Illness Patient is an 81-year-old female with a significant past medical history of chronic respiratory failure with hypoxemia on 3 L nasal cannula at home, COPD, CHF, hypertension, diabetes, paroxysmal A. fib anticoagulated on Coumadin. Patient is had increasing productive cough of yellow sputum over the last few days. Patient has had increasing shortness of breath which prompted family to call 911. On arrival, the patient was hypoxemic with saturations in the 70s. She was treated with IV steroids and BiPAP. In the emergency department, the patient had increasing work of breathing despite BiPAP therapy and was eventually intubated. Patient noted to have primary respiratory acidosis. Patient was covered with IV antibiotics in the form of cefepime. Patient noted to be hyperglycemic and insulin drip initiated. Patient did have transient episode of hypotension with initiation of propofol drip. Upon evaluation in the ICU, the patient is sedated and intubated. She is unable to contribute to history of present illness. Allergies Allergy/AdvReac Type Severity Reaction Status Date / Time amoxicillin [From Augmentin] AdvReac Intermediate red - Verified 10/11/21 06:05 itchy hands clavulanic acid AdvReac Intermediate red - Verified 10/11/21 06:05 [From Augmentin] itchy hands Home Medications Medication Instructions Recorded Confirmed Type Oxygen Home #1 ea 06/01/19 10/10/21 Rx multivitamin (One-A-Day Essential) 1 tab PO DAILY 06/01/19 10/10/21 History nebulizers #1 ea 06/10/19 10/10/21 Rx Portable Oxygen #1 ea 05/04/20 10/10/21 Rx amlodipine 5 mg tablet 5 mg PO DAILY #1 tab 05/04/20 10/10/21 History calcium carb 300 mg-D3 800 1 tab PO BID tab 05/04/20 10/10/21 History unit-mag ox 25 mg-advertising copy writer 0.5 mg-rashid-Zn tablet (Caltrate + D3 Plus Minerals) insulin glargine 100 unit/mL 12 unit SUBCUT DAILY ml 05/04/20 10/10/21 History subcutaneous solution metformin 1,000 mg tablet 1,000 mg PO BID #180 tab 05/04/20 10/10/21 History sotalol 80 mg tablet 80 mg PO Q12 tab 05/04/20 10/10/21 History aspirin 81 mg chewable tablet 81 mg PO DAILY 08/04/21 10/10/21 History (Aspirin Childrens) lisinopril 20 1 tab PO DAILY 08/04/21 10/10/21 History mg-hydrochlorothiazide 25 mg tablet warfarin 2.5 mg tablet 2.5 - 5 mg PO DIRECTED 08/04/21 10/10/21 History Fernando Vasquez #2 ea 08/17/21 10/10/21 Rx ipratropium 0.5 mg-albuterol 3 mg 3 ml INHALATION Q4 PRN #180 vial 09/04/21 10/10/21 Rx (2.5 mg base)/3 mL nebulization soln albuterol sulfate 90 mcg/actuation 2 inh INHALATION Q4 PRN #8.5 g 10/10/21 10/10/21 Rx aerosol inhaler doxycycline hyclate 100 mg capsule 100 mg PO BID #20 cap 10/10/21 10/10/21 Rx glycopyrrolate 9 mcg-formoterol 2 puff INHALATION BID 10/10/21 10/10/21 History 4.8 mcg HFA aerosol inhaler (Bevespi Aerosphere) ipratropium 0.5 mg-albuterol 3 mg 3 ml INHALATION Q4 PRN 10/10/21 10/10/21 History (2.5 mg base)/3 mL nebulization soln prednisone 10 mg tablet See Rx Instructions PO DAILY #36 10/10/21 10/10/21 Rx tab Patient History Medical History CHF (congestive heart failure) (12/07/13) Chronic dyspnea Chronic respiratory failure with hypoxia COPD (chronic obstructive pulmonary disease) COPD exacerbation (12/07/13) DCIS (ductal carcinoma in situ) of breast Diabetes Hypertension Insulin dependent diabetes mellitus Paroxysmal atrial fibrillation Respiratory failure with hypoxia Surgical History History of carpal tunnel release History of dental surgery History of partial mastectomy History of tubal ligation Family History Mother Diabetes Other Breast cancer Deep vein thrombosis Social History Smoking Status: Unknown if ever smoked packs per day: 0.5; Years Smoked: 20; Second Hand Exposure: Yes; Preferred Language: Syrian Communication Ability: Impaired Greenhouse Worker Required: No Beliefs That Will Affect Care: None marital status: / Current Living Situation: Alone Current Living Situation Comment: [facility] How many Children do You have: 2 Other Information That Helps Us Care for You: No Feels Safe at Home: Yes Assistive Devices: Glasses Review of Systems Review of Systems: Unobtainable due to endotracheal tube and Unobtainable due to reduced consciousness Physical Exam Physical Exam: VITAL SIGNS - Vital signs and nursing notes were reviewed. GENERAL - 81-year-old female appearing her stated age who is in no acute distress. Intubated and sedated. HEAD - NC/AT. EYES - PERRL with EOMI bilaterally. Sclera anicteric. EARS - No deformities of external structures noted on gross examination bilaterally. NOSE - Midline and without cyanosis. No epistaxis or purulent drainage noted. MOUTH/OROPHARYNX - ETT in place. Without perioral cyanosis. Buccal mucosa pink and moist and without leukoplakia. NECK - Neck with FROM. Supple to palpation. LUNGS - Chest wall symmetric without accessory muscle use, intercostals retractions, or central cyanosis. Coarse breath sounds noted. CARDIAC - RRR with S1/S2. No murmur, rubs, or gallops appreciated. ABDOMEN - Abdominal contour flat without pulsations or visible masses. BS normoactive all four quadrants. No tenderness, palpable masses, hepatosplenomegaly, or ascites noted. EXTREMITIES - No clubbing or peripheral cyanosis. Moderate pretibial edema present. +3/5 radial and dorsalis pedis pulses palpated throughout. NEUROLOGIC - No focal neurological deficits noted. Limited exam secondary to sedation. Results & Data Results & Data ([facility]) Vital Signs (Past 12 Hours) Vital Signs Temp Pulse Resp BP Pulse Ox 10/10/21 21:57 108/61 10/10/21 21:45 24 10/10/21 21:38 102 H 22 107/66 92 10/10/21 21:33 105 H 22 112/64 92 10/10/21 21:30 108 H 22 93 10/10/21 21:27 101 H 22 102/59 L 93 10/10/21 21:24 111 H 22 94 10/10/21 21:21 111 H 22 101/56 L 94 10/10/21 21:20 111 H 22 94 10/10/21 21:18 112 H 22 105/57 L 95 10/10/21 21:13 111 H 22 100/56 L 10/10/21 21:10 96/56 L 10/10/21 21:04 92/56 L 10/10/21 20:57 80/42 L 10/10/21 20:54 76/44 L 10/10/21 20:45 100 H 22 96 10/10/21 20:30 113 H 30 H 99 10/10/21 20:20 99 10/10/21 20:13 112 H 12 153/75 H 99 10/10/21 20:10 98 10/10/21 20:03 28 H 95 10/10/21 19:54 36.8 C 105 H 26 H 145/80 H 78 L 10/10/21 19:53 92 10/10/21 19:52 28 H 145/80 H 99 Coding Level of Care Code Critical Care 1st 30-74 mins Diagnoses Admitted to intensive care unit Z78.9 Respiratory failure J96.01; J96.02 Chronicity: acute Respiratory failure complication: hypoxia and hypercapnia COPD exacerbation J44.1 Pulmonary edema J81.0 Chronicity: acute Hypoxia R09.02 Diabetes E11.9 Hypertension I10 CHF (congestive heart failure) I50.9 COPD (chronic obstructive pulmonary disease) J44.9 COPD type: unspecified COPD Time Spent (min) 40 (1) Pulmonary edema Chronicity: acute Qualified Code(s): J81.0 - Acute pulmonary edema (2) Respiratory failure Chronicity: acute Respiratory failure complication: hypoxia and hypercapnia Qualified Code(s): J96.01 - Acute respiratory failure with hypoxia; J96.02 - Acute respiratory failure with hypercapnia (3) COPD (chronic obstructive pulmonary disease) COPD type: unspecified COPD Qualified Code(s): J44.9 - Chronic obstructive pulmonary disease, unspecified
[2021-10-10] MEDS ORDERED: fentaNYL citrate 100 MCG/2 ML VIAL IV PRN (23:43)
[2021-10-11] MEDS: IPRATROPIUM BROMIDE NEB SOLN 0.02% 2.5 ML VIAL INH SCH ×4 (00:13→20:27)
[2021-10-11] MEDS: LEVALBUTEROL 1.25MG/0.5ML NEB INH SCH ×4 (00:13→20:27)
[2021-10-11] MEDS ORDERED: STAT IV Infusion **Titration per Protocol STA ×3 (00:16→07:14)
[2021-10-11] MEDS ORDERED: GLUCOSE 40% GEL 15 GM TUBE PO PRN (00:30)
[2021-10-11] MEDS ORDERED: DEXTROSE 50% 50 ML SYRINGE IV PRN (00:30)
[2021-10-11] MEDS ORDERED: CARBOHYDRATES FOR HYPOGLYCEMIA PO PRN (00:30)
[2021-10-11] MEDS ORDERED: NovoLIN-R BOLUS FROM BAG IV ONE (00:30)
[2021-10-11] MEDS ORDERED: GLUCAGON FOR INJ 1 MG VIAL IM PRN (00:30)
[2021-10-11] MEDS ORDERED: GLUCOSE 10 TABS/TUBE PO PRN (00:30)
[2021-10-11 00:37] LABS: iSTAT Allen Test Pass; iSTAT Art Bld Gas pCO2 Correct 60 mmHg (35-46); iSTAT Art Bld Gas pH Corrected 7.284 (7.35-7.45); iSTAT Arterial Blood Gas HCO3 29 meg/L (19-24); iSTAT Arterial Blood Gas pCO2 64 mmHg (35-46); iSTAT Arterial Blood Gas pH 7.27 (7.35-7.45); iSTAT Arterial Blood Gas pO2 71 mmHg (80-95); iSTAT Arterial Blood Gas pO2 C 64; iSTAT Carbon Dioxide 31 mmol/L (24-31); iSTAT FiO2 70 %; iSTAT Hematocrit 33 % (37-47); iSTAT Hemoglobin 11.2 g/dl (12.0-16.0); iSTAT Potassium 3.8 mmol/L (3.3-5.0); iSTAT Site L Radial; iSTAT Sodium 128 mmol/L (135-144)
[2021-10-11] MEDS: INSULIN REGULAR 250 UNITS in SODIUM CHLORIDE 0.9% 247.5 ML IV SCH (00:41)
[2021-10-11] MEDS: NOREPINEPHRINE/D5W 8 MG/508 ML BAG IV SCH (00:41)
[2021-10-11] MEDS ORDERED: XOPENEX/ATROVENT 1.25mg/0.5MG NEB COMBO NEB SCH (01:00)
[2021-10-11 05:44] LABS: iSTAT Allen Test Pass; iSTAT Art Bld Gas pCO2 Correct 50 mmHg (35-46); iSTAT Art Bld Gas pH Corrected 7.389 (7.35-7.45); iSTAT Arterial Blood Gas HCO3 31 meg/L (19-24); iSTAT Arterial Blood Gas pCO2 51 mmHg (35-46); iSTAT Arterial Blood Gas pH 7.38 (7.35-7.45); iSTAT Arterial Blood Gas pO2 35 mmHg (80-95); iSTAT Arterial Blood Gas pO2 C 33; iSTAT Carbon Dioxide 32 mmol/L (24-31); iSTAT FiO2 60 %; iSTAT Hematocrit 32 % (37-47); iSTAT Hemoglobin 10.9 g/dl (12.0-16.0); iSTAT Potassium 3.4 mmol/L (3.3-5.0); iSTAT Site L Radial; iSTAT Sodium 129 mmol/L (135-144)
[2021-10-11 05:44] LABS: iSTAT Allen Test Pass; iSTAT Art Bld Gas pCO2 Correct 49 mmHg (35-46); iSTAT Art Bld Gas pH Corrected 7.418 (7.35-7.45); iSTAT Arterial Blood Gas HCO3 32 meg/L (19-24); iSTAT Arterial Blood Gas pCO2 50 mmHg (35-46); iSTAT Arterial Blood Gas pH 7.41 (7.35-7.45); iSTAT Arterial Blood Gas pO2 74 mmHg (80-95); iSTAT Arterial Blood Gas pO2 C 71; iSTAT Carbon Dioxide 33 mmol/L (24-31); iSTAT FiO2 60 %; iSTAT Hematocrit 33 % (37-47); iSTAT Hemoglobin 11.2 g/dl (12.0-16.0); iSTAT Potassium 3.5 mmol/L (3.3-5.0); iSTAT Site L Radial; iSTAT Sodium 129 mmol/L (135-144)
[2021-10-11 06:14] LABS: Hemoglobin 10.1 g/dL (12.0-16.0); Immature Granulocytes # (auto) 0.03 K/uL (0.00-0.02); Immature Granulocytes % (auto) 0.3 %; Lymphocytes # (auto) 0.94 K/uL (1.2-3.4); Lymphocytes % (auto) 9.1 %; Mean Corpuscular Hemoglobin 25.3 pg (25-34); Mean Corpuscular Hgb Conc 31.6 g/dL (32-36); Mean Platelet Volume 10.5 fL (7.4-10.4); Monocytes # (auto) 0.35 K/uL (0.11-0.59); Monocytes % (auto) 3.4 %; Neutrophils # (auto) 9.06 K/uL (1.4-6.5); Neutrophils % (auto) 87.2 %; Platelet Count 537 K/uL (130-400); RDW Coefficient of Variation 15.4 % (11.5-14.5); RDW Standard Deviation 45.5 fL (36.4-46.3); White Blood Count 10.38 K/uL (4.8-10.8)
[2021-10-11 06:22] LABS: INR 3.7 (0.9-1.1); Partial Thromboplastin Ratio 2.1; Prothrombin Time 33.7 Seconds (9.0-12.0)
[2021-10-11 06:26] LABS: Troponin I 9.37 ng/ml (0-0.04)
[2021-10-11 06:31] LABS: Partial Thromboplastin Time 56.1 Seconds (21.0-31.0)
[2021-10-11] MEDS ORDERED: MIDAZOLAM BOLUS FROM BAG IV PRN (06:47)
[2021-10-11] MEDS: MIDAZOLAM HCL 125 MG/250 ML BAG IV PRN (07:31)
[2021-10-11] MEDS: fentaNYL citrate 2,500 MCG/250 ML BAG IV SCH (07:31)
[2021-10-11] MEDS: INSULIN ASPART PER UNIT SC SCH ×5 (07:32→21:15)
[2021-10-11] MEDS: ASPIRIN 81 MG CHEW NG SCH (07:32)
[2021-10-11] MEDS: FAMOTIDINE 20 MG in SYRINGE 3 ML IV SCH ×2 (07:34→21:09)
[2021-10-11] MEDS: methylPREDNISolone 40 MG in SYRINGE 0 ML IV SCH (07:34)
--- NOTE | 2021-10-11 07:42 | CT Scan Report ---
CT head/brain wo con CLINICAL HISTORY: claudine mason Technique: Contiguous axial CT images of the head were acquired from the base of the skull to the juan carson without intravenous contrast administration. Images were viewed in brain, subdural and bone [facility] . Automated dose lowering techniques and/or adjustment according to patient size were utilized for this exam. Comparison: None available at the time of this dictation. Findings: Areas of decreased attenuation are present in the periventricular and subcortical white matter bilate rally consistent with small vessel ischemic disease. Generalized cerebral atrophy with commensurate e nlargement of the ventricles, sulci, and cisterns is also present. There is no acute intracranial hem orrhage or evidence of acute territorial infarction. No shift of the midline structures, mass effect, or extra-axial abnormalities are shown. Atherosclerotic calcifications are present in the intracran ial segments of the internal carotid arteries. Incidentally noted is a calcified mass measuring appro ximately 2.1 cm in the right sella compatible with meningioma. Imaged portions of the paranasal sinuses and mastoid air cells are clear. The orbits appear normal. There are no acute fractures of the calvaria or scalp swelling. Impression: No acute intracranial hemorrhage, no evidence of acute territorial infarction or other acute intracra nial disease process. ACT 112: Negative or not required by law. Electronically signed by: Rito George M.D. 10/11/2021 7:41 AM
--- NOTE | 2021-10-11 07:53 | XRay Report ---
XR chest 1V portable CLINICAL HISTORY: f/u COMPARISON STUDY: Chest radiograph December 08, 2021. FINDINGS: Tip of endotracheal tube is 1.5 cm above the jessica. Tip of nasogastric tube is at least wi thin the body of the stomach. There is no pneumothorax. There are small bilateral pleural effusions. Bibasilar opacities have slightly improved. Interstitial thickening has slightly improved. IMPRESSION: 1. Tip of endotracheal tube 1.5 cm above the jessica. 2. Interval improvement in pulmonary edema. 3. Small bilateral pleural effusions with bibasilar opacities, slightly decreased. ACT 112: Negative or not required by law. Electronically signed by: Melchor Tafoya M.D. 10/11/2021 7:52 AM
[2021-10-11 08:20] LABS: BUN Creatinine Ratio 36.5 (10-20); Calcium 8.7 mg/dl (8.5-10.1); Est GFR (African American) 103.1 ml/min; Magnesium 1.9 mg/dl (1.7-2.4); Phosphorus 3.2 mg/dl (2.5-4.9); Potassium 3.5 mmol/L (3.5-5.1)
--- NOTE | 2021-10-11 08:37 | Cardiology Consultation ---
Date of Consultation October 11, 2021 Assessment & Plan (1) Left bundle branch block: (2) Heart failure, systolic, with acute decompensation: 81-year-old female with a past medical history of severe underlying oxygen- dependent COPD, chronic frailty, and history of paroxysmal atrial fibrillation for which she is treated with Coumadin and sotalol as an outpatient. the presence of a left bundle branch block was first noted at the time for admission in early August, she presented with a COPD exacerbation and pneumonia. Echocardiogram at that time revealed abnormal septal motion consistent with left bundle branch block, but preserved LVEF of 55% otherwise. Patient was not having any symptoms suggestive angina at that time. She presents to this hospital stay with 3 days of worsening cough and dyspnea. Her third troponin has trended up to 9.37 nanogram per milliliter, an echocardiogram reveals new severe left ventricular systolic dysfunction with abnormal septal motion consistent with left bundle branch block, and diffuse akinesis to hypokinesis otherwise including apical akinesis. There is a subtle degree of sparing at the basal segments. Differential diagnosis includes age undetermined left coronary system distribution infarct, that perhaps happen sometime between the August echocardiogram and at present. Given the severe abnormality on her echocardiogram, I would expect for her troponin I to be much higher if this was all acute having happened within the last 24 hours. Another possibility is that this is a catecholamine induced cardiomyopathy. At present, will hold Coumadin for INR 3.7, when INR is less than 2 recommend heparin bridge with possible anticipation of need for invasive procedures. With regards to her hypotension, prior to hospital treatment with lisinopril / HCTZ, amlodipine, and sotalol are on hold. continue Levophed as necessary. Although holding her sotalol increases the potential for her to go into atrial fibrillation, I think present, is still most prudent to hold it pending improvement of her blood pressure. As discussed with the Critical Care Team, I recommend cautious diuretic therapy with furosemide 20 milligrams IV q.6 hours as blood pressure tolerates. Her chest x-ray performed this morning appears improved compared to the 1 performed upon presentation to the hospital, however she does have a significant amount of left pleural fluid noted on echocardiogram, and therefore diuretic therapy is recommended. I do not think there is an indication for emergent cardiac catheterization at present, and recommend optimization medically at present. I am very concerned with regards to her prognosis given her frailty at baseline, underlying severe lung disease, and now newly appreciated severe left ventricular systolic dysfunction. History of Present Illness Attending Physician: Lane Reese MD History of Present Illness Salome Rodriguez is an 81 year old female seen in cardiology consultation per the request of Rubens Clay PA-C of [facility] critical care service for evaluation of respiratory failure, NTEMI, and left bundle branch block. The patient is well known to the undersigned as I have followed her on an inpatient and outpatient basis. Her cardiac history dates back to November, when she was hospitalized at [facility] with profound shortness of breath. She was diagnosed with an acute exacerbation of COPD and pneumonia. received treatment including antibiotics and inhaled bronchodilators and IV corticosteroids. During her hospital stay she developed atrial fibrillation with rapid ventricular response. She was placed on oral sotalol and Coumadin. In the meantime, she has been followed regularly by cardiology, without recurrence of atrial fibrillation. She had been hospitalized in early August, with acute on chronic hypoxemic respiratory failure. EKG performed 08/04/21 demonstrated a left bundle branch block. Echocardiogram performed 08/05/21 reveals abnormal septal motion consistent with LBBB with otherwise normal LV wall motion, LVEF 55-60% at that time with grade I diastolic dysfunction and the estimated pulmonry artery systolic pressure was 39 mm Hg. The patient presented again via the ED last evening with 3 day history of worsening cough and shortness of breath. Oxygen saturations were reportedly in the 70s upon arrival of EMS despite her chronic home oxygen supplementation. BiPap was initiated by EMS and patient was subsequently intubated in the ED. Initial ABG performed at 21:41 included a pH of 7.18, PCO2 of 86, Po2 of 98, HCO3 32. Her chest x-ray on presentation revealed bilateral severe pulmonary edema. At the time my assessment this morning in the intensive care unit, room 111, the patient was receiving an infusion of low-dose fentanyl, midazolam, and norepinephrine at 0.07 micro gram per kilogram per minute. Blood pressure has been marginal with systolic blood pressures in the 80s to 90s, however appears to be a little bit improved since propofol discontinued. Her FiO2 has been titrated and 40%. She is responsive when her sedation is decreased. Troponin I was minimally elevated on presenation and has trended up 0.05 -->0.15--> 9.37 ng/ml. Echocardiogram performed this morning and reviewed independently reveals new severe left ventricular systolic dysfunction, ejection fraction of less than 20%. Allergies Allergy/AdvReac Type Severity Reaction Status Date / Time amoxicillin [From Augmentin] AdvReac Intermediate red - Verified 10/11/21 06:05 itchy hands clavulanic acid AdvReac Intermediate red - Verified 10/11/21 06:05 [From Augmentin] itchy hands Home Medications Medication Instructions Recorded Confirmed Type Oxygen Home #1 ea 06/01/19 10/10/21 Rx multivitamin (One-A-Day Essential) 1 tab PO DAILY 06/01/19 10/10/21 History nebulizers #1 ea 06/10/19 10/10/21 Rx Portable Oxygen #1 ea 05/04/20 10/10/21 Rx amlodipine 5 mg tablet 5 mg PO DAILY #1 tab 05/04/20 10/10/21 History calcium carb 300 mg-D3 800 1 tab PO BID tab 05/04/20 10/10/21 History unit-mag ox 25 mg-photocopying equipment mechanic 0.5 mg-rashid-Zn tablet (Caltrate + D3 Plus Minerals) insulin glargine 100 unit/mL 12 unit SUBCUT DAILY ml 05/04/20 10/10/21 History subcutaneous solution metformin 1,000 mg tablet 1,000 mg PO BID #180 tab 05/04/20 10/10/21 History sotalol 80 mg tablet 80 mg PO Q12 tab 05/04/20 10/10/21 History aspirin 81 mg chewable tablet 81 mg PO DAILY 08/04/21 10/10/21 History (Aspirin Childrens) lisinopril 20 1 tab PO DAILY 08/04/21 10/10/21 History mg-hydrochlorothiazide 25 mg tablet warfarin 2.5 mg tablet 2.5 - 5 mg PO DIRECTED 08/04/21 10/10/21 History Fernando Leanae #2 ea 08/17/21 10/10/21 Rx ipratropium 0.5 mg-albuterol 3 mg 3 ml INHALATION Q4 PRN #180 vial 09/04/21 10/10/21 Rx (2.5 mg base)/3 mL nebulization soln albuterol sulfate 90 mcg/actuation 2 inh INHALATION Q4 PRN #8.5 g 10/10/21 10/10/21 Rx aerosol inhaler doxycycline hyclate 100 mg capsule 100 mg PO BID #20 cap 10/10/21 10/10/21 Rx glycopyrrolate 9 mcg-formoterol 2 puff INHALATION BID 10/10/21 10/10/21 History 4.8 mcg HFA aerosol inhaler (Bevespi Aerosphere) ipratropium 0.5 mg-albuterol 3 mg 3 ml INHALATION Q4 PRN 10/10/21 10/10/21 History (2.5 mg base)/3 mL nebulization soln prednisone 10 mg tablet See Rx Instructions PO DAILY #36 10/10/21 10/10/21 Rx tab Patient History Medical History CHF (congestive heart failure) (12/07/13) Chronic dyspnea Chronic respiratory failure with hypoxia COPD (chronic obstructive pulmonary disease) COPD exacerbation (12/07/13) DCIS (ductal carcinoma in situ) of breast Diabetes Heart failure, systolic, with acute decompensation Hypertension Insulin dependent diabetes mellitus Paroxysmal atrial fibrillation Respiratory failure with hypoxia Surgical History History of carpal tunnel release History of dental surgery History of partial mastectomy History of tubal ligation Family History Mother Diabetes Other Breast cancer Deep vein thrombosis Social History Smoking Status: Unknown if ever smoked packs per day: 0.5; Years Smoked: 20; Second Hand Exposure: Yes; Preferred Language: [place]an Communication Ability: Impaired Collar Setter Required: No Beliefs That Will Affect Care: None marital status: / Current Living Situation: Alone Current Living Situation Comment: [place] How many Children do You have: 2 Other Information That Helps Us Care for You: No Feels Safe at Home: Yes Assistive Devices: Glasses Review of Systems Review of Systems: Unobtainable due to endotracheal tube Physical Exam Constitutional: + ill appearing Respiratory: Auscultation: + diminished lung sounds ( Decreased breath sounds bilaterally at the bases) Cardiovascular: Rate/Rhythm: regular rate and regular rhythm Heart Sounds: no murmur Extremities: no edema Gastrointestinal (Abdomen): normal bowel sounds, soft, nontender, no hepatosplenomegaly Neurologic: responsive. Results & Data ([facility]) Vital Signs (Past 12 Hours) Vital Signs Temp Pulse Pulse Resp BP BP Pulse Ox 10/11/21 07:07 73 26 H 97 10/11/21 06:50 36.9 C 76 23 97 10/11/21 06:45 36.9 C 75 26 H 109/61 97 10/11/21 06:43 36.9 C 75 26 H 108/62 97 10/11/21 06:40 36.8 C 73 26 H 104/59 L 97 10/11/21 06:30 36.8 C 77 26 H 74/44 L 95 10/11/21 06:20 36.8 C 71 23 95 10/11/21 06:15 36.8 C 76 26 H 90/51 L 96 10/11/21 06:10 36.7 C 87 26 H 95 10/11/21 06:09 36.7 C 95 H 26 H 122/63 95 10/11/21 06:00 36.7 C 90 26 H 124/63 97 10/11/21 05:50 36.7 C 105 H 23 92 10/11/21 05:45 36.6 C 85 27 H 126/72 94 10/11/21 05:40 36.6 C 80 26 H 97 10/11/21 05:30 36.6 C 76 26 H 111/63 96 10/11/21 05:15 36.5 C 76 26 H 118/66 97 10/11/21 05:00 36.5 C 71 26 H 100/59 L 96 10/11/21 04:45 36.5 C 73 26 H 102/57 L 95 10/11/21 04:30 36.4 C L 75 26 H 97/55 L 95 10/11/21 04:15 36.4 C L 74 26 H 101/57 L 95 10/11/21 04:10 78 24 95 10/11/21 04:00 36.3 C L 78 26 H 99/55 L 95 10/11/21 03:45 36.3 C L 75 26 H 94/54 L 94 10/11/21 03:30 36.2 C L 84 26 H 114/64 94 10/11/21 03:15 36.2 C L 75 26 H 99/57 L 95 10/11/21 03:00 36.1 C L 75 26 H 101/56 L 96 10/11/21 02:45 36.1 C L 75 26 H 94/53 L 96 10/11/21 02:30 36.1 C L 72 26 H 94/52 L 96 10/11/21 02:15 36.0 C L 80 26 H 101/55 L 97 10/11/21 02:00 36.0 C L 73 26 H 97/53 L 95 10/11/21 01:45 36.0 C L 74 26 H 93/52 L 95 10/11/21 01:35 36.0 C L 90 23 122/65 94 10/11/21 01:30 36.0 C L 97 H 26 H 138/92 93 10/11/21 01:23 35.9 C L 94 H 23 137/68 93 10/11/21 01:15 35.8 C L 77 26 H 117/67 94 10/11/21 01:08 35.8 C L 77 23 98/56 L 94 10/11/21 01:05 35.8 C L 83 23 95/56 L 92 10/11/21 01:03 35.8 C L 81 26 H 85/50 L 91 10/11/21 01:00 35.8 C L 78 21 71/46 L 90 10/11/21 00:58 35.8 C L 82 26 H 62/36 L 89 L 10/11/21 00:30 26 H 10/10/21 23:39 98 H 14 122/73 95 10/10/21 23:00 88 22 112/66 94 10/10/21 22:50 96 H 24 94 10/10/21 21:57 108/61 10/10/21 21:45 24 10/10/21 21:38 102 H 22 107/66 92 10/10/21 21:33 105 H 22 112/64 92 10/10/21 21:30 108 H 22 93 10/10/21 21:27 101 H 22 102/59 L 93 10/10/21 21:24 111 H 22 94 10/10/21 21:21 111 H 22 101/56 L 94 10/10/21 21:20 111 H 22 94 10/10/21 21:18 112 H 22 105/57 L 95 10/10/21 21:13 111 H 22 100/56 L 10/10/21 21:10 96/56 L 10/10/21 21:04 92/56 L 10/10/21 20:57 80/42 L 10/10/21 20:54 76/44 L 10/10/21 20:45 100 H 22 96 Laboratory Results Cardiac Enzymes 10/10/21 10/10/21 10/10/21 Range/Units 19:53 20:03 21:40 AST 29 (13-39) U/L Troponin I 0.05 H* 0.15 H* (0-0.04) ng/ml B-Natriuretic Peptide 997 H (0-100) pg/ml 10/11/21 Range/Units 05:22 AST (13-39) U/L Troponin I 9.37 H* (0-0.04) ng/ml B-Natriuretic Peptide (0-100) pg/ml Coagulation 10/10/21 10/10/21 10/11/21 Range/Units 19:53 20:03 05:22 PT 29.3 H 33.7 H (9.0-12.0) Seconds APTT 37.3 H 56.1 H* (21.0-31.0) Seconds B-Natriuretic Peptide 997 H (0-100) pg/ml CBC 10/10/21 10/11/21 Range/Units 19:53 05:22 WBC 15.42 H 10.38 (4.8-10.8) K/uL RBC 4.40 4.00 L (4.2-5.4) M/uL Hgb 11.2 L 10.1 L (12.0-16.0) g/dL Hct 36.2 L 32.0 L (37-47) % Plt Count 571 H 537 H (130-400) K/uL Neut # (Auto) 12.77 H 9.06 H (1.4-6.5) K/uL Lymph # (Auto) 2.28 0.94 L (1.2-3.4) K/uL [place] # (Auto) 0.29 0.35 (0.11-0.59) K/uL Eos # (Auto) 0.02 0.00 (0-0.5) K/uL Baso # (Auto) 0.02 0.00 (0-0.2) K/uL Comprehensive Metabolic Panel 10/10/21 10/11/21 Range/Units 19:53 05:22 Sodium 128 L 129 L (136-145) mmol/L Potassium 3.8 3.5 (3.5-5.1) mmol/L Chloride 87 L 93 L (98-107) mmol/L Carbon Dioxide 31 28 (21-32) mmol/L BUN 16 19 (6-23) mg/dl Creatinine 0.76 0.52 L (0.6-1.2) mg/dl Glucose 332 H* 188 H (70-99(Fasting)) mg/dl Calcium 9.3 8.7 (8.5-10.1) mg/dl AST 29 (13-39) U/L ALT 16 (7-52) U/L Alkaline Phosphatase 89 (34-104) U/L Total Protein 6.9 (6.0-8.3) gm/dl Albumin 3.7 (3.4-5.0) gm/dl Intake and Output 10/10/21 10/11/21 10/11/21 22:59 06:59 14:59 Intake Total 1000.917 / 2682.559 1681.642 / 2682.559 180.010 / 180.010 Output Total 275 / 275 Balance 1000.917 / 2407.559 1406.642 / 2407.559 180.010 / 180.010 Intake: IV 1000.917 / 2682.559 1681.642 / 2682.559 180.010 / 180.010 Doxycycline Hyclate 100 mg In 110 / 110 Dextrose 5% 100 ml @ 50 mls/hr IV 2130 ONE Rx#:[id number] Insulin Regular 250 units In 15.629 / 15.629 6.30 / 6.30 Sodium Chloride 0.9% 247.5 ml @ 2.1 UNITS/HR 2.1 mls/hr IV . Q24H JOHN Rx#:[id number] Magnesium Sulfate / D5w 1 gm In 100 / 100 100 ml @ 50 mls/hr IV ONE ONE Rx#:[id number] Midazolam HCl 125 mg In 250 ml 3.133 / 3.133 @ 1 MG/HR 2 mls/hr IV .Q96H PRN Rx#:[id number] Norepinephrine/D5w 8 mg In 508 156.930 / 156.930 62.16 / 62.16 ml @ 0.1 MCG/KG/MIN 22.784 mls/ hr IV .[id number] [facility] Rx#:[id number] Potassium Chloride / Wtr 10 meq 100 / 100 100 / 100 In 100 ml @ 100 mls/hr IV NOW ONE Rx#:[id number] Sodium Chloride 0.9% 1000ML 1, 1000 / 2000 1000 / 2000 000 ml @ 999 mls/hr IV .Q1H1M ONE Rx#:[id number] fentaNYL citrate 2,500 mcg In 8.417 / 8.417 250 ml @ 25 MCG/HR 2.5 mls/hr IV .Q96H [facility] Rx#:[id number] propofoL 1,000 mg In 100 ml @ 0.917 / 200.000 199.083 / 200.000 30 MCG/KG/MIN 10.764 mls/hr IV .Q9H18M [facility] Rx#:[id number] Output: Urine Amount (Catheter) 275 / 275 Guan/Indwelling 275 / 275 Other: Weight 59.8 kg 59.8 kg 59.8 kg Weight Measurement Method Built in [facility] Built in [facility] Patient Weight 10/12/21 06:59 Weight 59.8 kg Diagnostic Findings EKG performed 10/10/2021 reveals sinus tachycardia 101 beats per minute, with left bundle branch block, QRS duration 140 milliseconds, [place] 08/06/2021, T- wave changes are more prominent lateral leads.
[2021-10-11] MEDS ORDERED: CEFEPIME 2,000 MG in SYRINGE 0 ML IV SCH (09:00)
[2021-10-11] MEDS ORDERED: POTASSIUM CHLORIDE 20 MEQ/15 ML UDC GT ONE (10:00)
[2021-10-11] MEDS: FUROSEMIDE INJ 20 MG/2 ML VIAL IV SCH ×3 (10:12→21:09)
[2021-10-11] MEDS: DOXYCYCLINE HYCLATE 100 MG in DEXTROSE 5% 100 ML IV SCH ×2 (10:12→21:20)
[2021-10-11] MEDS ORDERED: POTASSIUM CHLORIDE / WTR 10 MEQ/100 ML PLCT IV ONE (10:15)
[2021-10-11] MEDS ORDERED: MAGNESIUM SULFATE / D5W 1 GM/100 ML BAG IV ONE (10:15)
--- NOTE | 2021-10-11 10:17 | Critical Care Progress Note ---
Date of Service October 11, 2021 Assessment & Plan (1) Admitted to intensive care unit: Plan: Reason Critically Ill: 81-year-old female presenting with acute on chronic hypoxemic respiratory failure in the setting of likely COPD exasperation with associated pulmonary edema and requiring ongoing ventilatory management status post intubation requirement. NEURO - * CAM ICU: Unable to assess secondary to sedation * Sedation: Propofol * Pain: As needed fentanyl * Altered mental status: * Likely metabolic encephalopathy in the setting of CO2 narcosis, acute of illness, etc. * CT head without acute findings. * Continue to monitor for improvement signs/symptoms with treatment of underlying causes. CARDIAC/VASCULAR - * Acute decompensated systolic heart failure as noted on echo. * Personally discussed with Dr. Velez. We will start Lasix 20 mg IV every 6 hours and monitor urine output closely. EF reduced to less than 20%. Cardiac intervention unlikely to alter the course of her disease process. * Continue Levophed to maintain mean arterial pressure above 65. She has a history of atrial fibrillation and will try to avoid dobutamine if able. Previously on sotalol. Will defer to cardiology with management of her underlying A. fib. RESPIRATORY - * Acute on chronic hypoxemic respiratory failure: * Likely multifactorial in the setting of pulmonary edema w/ COPD exacerbation. * Primary respiratory acidosis. * Severe COPD at baseline and is oxygen dependent. Continue IV steroids for COPD exacerbation. * Continue lung protective ventilation strategy. GI/NUTRITION - * OGT in place. * Prophylaxis: Famotidine RENAL/LYTES - * Replace potassium magnesium per ICU protocol - * Guan in place - Strict I&Os. ENDO - * Hyperglycemia * BSGs per unit protocol. ISS --> gtt per unit policy. HEME - * Stable H&H * Trend INR in the anticoagulated patient w/ h/o A fib ID - * Initially covered w/ antibiotics w/ concerns for pneumonia. * Will add sputum cultures. LINES/IV ACCESS - * PIVs x2 * ETT * OGT * Guan DVT PROPHYLAXIS - * Coumadin * SCDs I have personally spent 39 minutes of critical care time in the direct management of this patient. This is a life/limb threatening event. This includes time spent evaluating patient, direct bedside care, chart review, placing orders, interpretation of diagnostic studies, discussion with consultants, patient, and family members, as well as other required patient management activities. This time is exclusive of all separately billable procedures, and teaching time and separate from and in addition to any other critical care service time. Thank you for allowing us to participate in the care of this patient. Please refer to my attending physician's documentation for any further recommendations. (2) Respiratory failure: (3) COPD exacerbation: (4) Pulmonary edema: (5) Hypoxia: (6) Diabetes: (7) Hypertension: (8) CHF (congestive heart failure): (9) COPD (chronic obstructive pulmonary disease): (10) Heart failure, systolic, with acute decompensation: Admission and Anticipated Discharge Date Admission Date: October 10, 2021 Subjective Patient follows simple commands on low doses of Versed and fentanyl. Also requiring low-dose of Levophed to maintain mean arterial pressures above 65. Review of Systems Review of Systems: Unobtainable due to cognitive status and Unobtainable due to endotracheal tube Physical Exam Physical Exam: VITAL SIGNS - Vital signs and nursing notes were reviewed. GENERAL - 81-year-old female appearing her stated age who is in no acute distress. Intubated and sedated. HEAD - NC/AT. EYES - PERRL with EOMI bilaterally. Sclera anicteric. EARS - No deformities of external structures noted on gross examination bilaterally. NOSE - Midline and without cyanosis. No epistaxis or purulent drainage noted. MOUTH/OROPHARYNX - ETT in place. Without perioral cyanosis. Buccal mucosa pink and moist and without leukoplakia. NECK - Neck with FROM. Supple to palpation. LUNGS - Chest wall symmetric without accessory muscle use, intercostals retractions, or central cyanosis. Coarse breath sounds noted. CARDIAC - RRR with S1/S2. No murmur, rubs, or gallops appreciated. ABDOMEN - Abdominal contour flat without pulsations or visible masses. BS normoactive all four quadrants. No tenderness, palpable masses, hepatosplenomegaly, or ascites noted. EXTREMITIES - No clubbing or peripheral cyanosis. Moderate pretibial edema present. +3/5 radial and dorsalis pedis pulses palpated throughout. NEUROLOGIC - No focal neurological deficits noted. Limited exam secondary to sedation. Results & Data Results & Data ([facility]) Vital Signs (Past 12 Hours) Vital Signs Temp Pulse Pulse Resp BP BP Pulse Ox 10/11/21 09:45 36.9 C 80 26 H 85/50 L 91 10/11/21 09:30 36.9 C 80 26 H 95/52 L 92 10/11/21 09:00 37.0 C 88 26 H 95/51 L 92 10/11/21 08:45 37.0 C 101 H 26 H 128/74 92 10/11/21 08:30 37.0 C 93 H 26 H 116/57 L 93 10/11/21 08:15 36.9 C 107 H 26 H 122/61 90 10/11/21 08:00 36.9 C 79 26 H 108/59 L 91 10/11/21 07:45 36.9 C 75 26 H 117/61 90 10/11/21 07:30 36.9 C 75 26 H 109/57 L 91 10/11/21 07:15 36.9 C 77 26 H 99/59 L 92 10/11/21 07:07 73 26 H 97 10/11/21 07:00 36.9 C 71 26 H 111/63 98 10/11/21 06:58 36.9 C 79 26 H 108/63 97 10/11/21 06:55 36.9 C 75 26 H 107/63 97 10/11/21 06:50 36.9 C 76 23 97 10/11/21 06:45 36.9 C 75 26 H 109/61 97 10/11/21 06:43 36.9 C 75 26 H 108/62 97 10/11/21 06:40 36.8 C 73 26 H 104/59 L 97 10/11/21 06:30 36.8 C 77 26 H 74/44 L 95 10/11/21 06:20 36.8 C 71 23 95 10/11/21 06:15 36.8 C 76 26 H 90/51 L 96 10/11/21 06:10 36.7 C 87 26 H 95 10/11/21 06:09 36.7 C 95 H 26 H 122/63 95 10/11/21 06:00 36.7 C 90 26 H 124/63 97 10/11/21 05:50 36.7 C 105 H 23 92 10/11/21 05:45 36.6 C 85 27 H 126/72 94 10/11/21 05:40 36.6 C 80 26 H 97 10/11/21 05:30 36.6 C 76 26 H 111/63 96 10/11/21 05:15 36.5 C 76 26 H 118/66 97 10/11/21 05:00 36.5 C 71 26 H 100/59 L 96 10/11/21 04:45 36.5 C 73 26 H 102/57 L 95 10/11/21 04:30 36.4 C L 75 26 H 97/55 L 95 10/11/21 04:15 36.4 C L 74 26 H 101/57 L 95 10/11/21 04:10 78 24 95 10/11/21 04:00 36.3 C L 78 26 H 99/55 L 95 10/11/21 03:45 36.3 C L 75 26 H 94/54 L 94 10/11/21 03:30 36.2 C L 84 26 H 114/64 94 10/11/21 03:15 36.2 C L 75 26 H 99/57 L 95 10/11/21 03:00 36.1 C L 75 26 H 101/56 L 96 10/11/21 02:45 36.1 C L 75 26 H 94/53 L 96 10/11/21 02:30 36.1 C L 72 26 H 94/52 L 96 10/11/21 02:15 36.0 C L 80 26 H 101/55 L 97 10/11/21 02:00 36.0 C L 73 26 H 97/53 L 95 10/11/21 01:45 36.0 C L 74 26 H 93/52 L 95 10/11/21 01:35 36.0 C L 90 23 122/65 94 10/11/21 01:30 36.0 C L 97 H 26 H 138/92 93 10/11/21 01:23 35.9 C L 94 H 23 137/68 93 10/11/21 01:15 35.8 C L 77 26 H 117/67 94 10/11/21 01:08 35.8 C L 77 23 98/56 L 94 10/11/21 01:05 35.8 C L 83 23 95/56 L 92 10/11/21 01:03 35.8 C L 81 26 H 85/50 L 91 10/11/21 01:00 35.8 C L 78 21 71/46 L 90 10/11/21 00:58 35.8 C L 82 26 H 62/36 L 89 L 10/11/21 00:30 26 H 10/10/21 23:39 98 H 14 122/73 95 10/10/21 23:00 88 22 112/66 94 10/10/21 22:50 96 H 24 94 Coding Level of Care Code Critical Care 1st 30-74 mins Diagnoses Admitted to intensive care unit Z78.9 Respiratory failure J96.01; J96.02 Chronicity: acute Respiratory failure complication: hypoxia and hypercapnia COPD exacerbation J44.1 Pulmonary edema J81.0 Chronicity: acute Hypoxia R09.02 Diabetes E11.9 Hypertension I10 CHF (congestive heart failure) I50.9 COPD (chronic obstructive pulmonary disease) J44.9 COPD type: unspecified COPD Heart failure, systolic, with acute decompensation I50.23 (1) Respiratory failure Chronicity: acute Respiratory failure complication: hypoxia and hypercapnia Qualified Code(s): J96.01 - Acute respiratory failure with hypoxia; J96.02 - Acute respiratory failure with hypercapnia (2) Pulmonary edema Chronicity: acute Qualified Code(s): J81.0 - Acute pulmonary edema (3) COPD (chronic obstructive pulmonary disease) COPD type: unspecified COPD Qualified Code(s): J44.9 - Chronic obstructive pulmonary disease, unspecified
[2021-10-11] MEDS ORDERED: INSULIN GLARGINE SOLOSTAR 100 UNITS/ML 3 ML PEN SC ONE (11:00)
[2021-10-11] MEDS ORDERED: PHARMACY GLYCEMIC MGMT CONSULT PRN (11:08)
[2021-10-11] MEDS ORDERED: PEPTAMEN 1.5 CAL 1,000 ML BAG OG SCH (11:30)
--- NOTE | 2021-10-11 11:52 | Pharmacy Report ---
Pharmacy Glycemic Short Note 2 - Date of Service October 11, 2021 - Glycemic Short BSG Results (Last 24 hours): 10/10/21 10/11/21 10/11/21 19:53 00:03 01:56 Glucose 332 H* POC Glucose 286 H 271 H 10/11/21 10/11/21 10/11/21 03:12 04:25 05:19 Glucose POC Glucose 255 H 223 H 200 H 10/11/21 10/11/21 10/11/21 05:22 06:25 07:40 Glucose 188 H POC Glucose 169 H 165 H 10/11/21 10/11/21 09:03 10:01 Glucose POC Glucose 164 H 153 H OUTPATIENT ANTIDIABETIC REGIMEN: * Lantus 12 units daily * Metformin 1gm PO BID ASSESSMENT: * Patient presents with acute on chronic hypoxemic respiratory failure. Patient is critically ill, intubated and sedated. History of DM2. Initiated on insulin infusion per ICU protocol (BSG on admission - 332mg/dL). Pharmacy consulted to assist with glycemic management and drip transition. * Insulin drip initiated ~ midnight last night, with an average rate of 2.3 units/hr. BSGs down trending and within goal ~ 0600 this AM. * NPO --> Peptamen @ [facility] this afternoon, receiving 40mg daily Solu Medrol, antibiotics, and pressors. Given high acuity and multiple variable stressors, plan to give 10 units Lantus X 1 now (Wt/stress 2). Will allow insulin infusion to continue to run for today (OK if weans itself off). HS Lantus scale depending on insulin drip rate. If drip is running <1 unit/hr, contact pharmacy to discontinue. * Novolog scale for carb coverage of tube feeds. PLAN FOR INPATIENT GLYCEMIC CONTROL: * Hold outpatient oral diabetes medications * Basal insulin * insulin infusion * Lantus 10 units X 1 + HS scale * Bolus insulin * NovoLog per scale q4h * Goal Range: Low 140mg/dL - High 180 mg/dL * Nutritional / Prandial insulin per carb ratio of 1 unit per 10 grams CHO c onsumed * Correction: 1 unit per 30 mg/dL > 140 (once insulin infusion d/c'd) PLAN FOR DISCHARGE: *
[2021-10-11] MEDS ORDERED: INSULIN ASPART PER UNIT SC SCH (12:00)
[2021-10-11] MEDS: TUBE FEEDING WATER FLUSH OG SCH ×3 (12:03→21:09)
[2021-10-11] MEDS: CEFEPIME 2,000 MG in SYRINGE 0 ML IV SCH (15:10)
--- NOTE | 2021-10-11 15:44 | Hospitalist Progress Note ---
Date of Service October 11, 2021 Assessment & Plan (1) Respiratory failure: Plan: Acute on chronic respiratory failure Likely multifactorial: CHF, COPD exacerbation, pulmonary hypertension Primary Respiratory acidosis Possible B/L Pneumonia Normal Procalcitonin Cardiogenic/Septic Shock --CXR:Interval development of the pulmonary edema and small bilateral pleural effusions. Bibasilar densities are nonspecific but could be due to atelectasis from the pleural effusions or a pneumonia. 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 Bibasilar densities are nonspecific but could be due to atelectasis from the pleural effusions or a pneumonia. -ECHO: Mild concentric LVH. Septal wall motion is abnormal consistent with LBBB. Left ventricle apex is akinetic. Diffuse hypokinesis to akinesis with minimal sparing of basal segments. EF< 20%. Moderate to severe pulmonary hypertension. Grade 1 diastolic dysfunction. -INR supratherapeutic May need IV heparin bridge if INR less than 2 Appreciate cardiology input Lisinopril, HCTZ, amlodipine, sotalol held due to hypotension Started on IV diuresis 20 mg every 6 hours as tolerated Monitor volume status No plan for emergent cardiac catheterization Acute metabolic encephalopathy Secondary to above -CT Head:No acute intracranial hemorrhage, no evidence of acute territorial infarction or other acute intracranial disease proces Paroxysmal atrial fibrillation INR supratherapeutic Home medications held secondary to hypotension Monitor INR:3.7 Hyponatremia on HCTZ at home Sodium level 129 Monitor DM II Last HbA1C: 8.0 Continue insulin Monitor BGs Breast cancer S/P surgery/radiation DVT Px: INR supratherapeutic Code Status Full code Admission and Anticipated Discharge Date Admission Date: October 10, 2021 Subjective Patient is seen and examined at bedside Sedated and Intubated currently On pressors Also on Tube feeds Follows simple commands off sedation Review of Systems Review of Systems: Unobtainable due to endotracheal tube Physical Exam Physical Exam: Physical Exam: Vitals signs as noted above General Appearance:Moderately built and nourished, no apparent distress, Intubated and sedated Head: normocephalic, Atraumatic Eyes: normal inspection Neck: supple, Trachea midline Respiratory/Chest: Coarse decreased breath sounds, No accessory muscle use Cardiovascular: S1, S2, No murmur Abdomen/GI:Soft, Non tender, Bowel sounds present Extremities/Musculoskeletal:normal inspection, Trace edema Neurologic/Psych:Limited exam due to sedation and intubation Skin: normal color, warm Results & Data Results & Data ([facility]) Vital Signs (Past 12 Hours) Vital Signs Temp Pulse Pulse Resp BP Pulse Ox 10/11/21 12:39 90 26 H 90 10/11/21 12:00 37.1 C 85 26 H 90 10/11/21 11:30 37.1 C 83 26 H 90/53 L 90 10/11/21 11:15 37.1 C 87 26 H 96/57 L 92 10/11/21 11:00 37.1 C 102 H 26 H 132/79 92 10/11/21 10:45 37.1 C 85 26 H 92/54 L 90 10/11/21 10:30 37.0 C 84 26 H 93 10/11/21 10:15 37.0 C 80 26 H 91/54 L 91 10/11/21 10:00 37.0 C 80 26 H 83/49 L 91 10/11/21 09:45 36.9 C 80 26 H 85/50 L 91 10/11/21 09:30 36.9 C 80 26 H 95/52 L 92 10/11/21 09:00 37.0 C 88 26 H 95/51 L 92 10/11/21 08:45 37.0 C 101 H 26 H 128/74 92 10/11/21 08:30 37.0 C 93 H 26 H 116/57 L 93 10/11/21 08:15 36.9 C 107 H 26 H 122/61 90 10/11/21 08:00 36.9 C 79 26 H 108/59 L 91 10/11/21 07:45 36.9 C 75 26 H 117/61 90 10/11/21 07:30 36.9 C 75 26 H 109/57 L 91 10/11/21 07:15 36.9 C 77 26 H 99/59 L 92 10/11/21 07:07 73 26 H 97 10/11/21 07:00 36.9 C 71 26 H 111/63 98 10/11/21 06:58 36.9 C 79 26 H 108/63 97 10/11/21 06:55 36.9 C 75 26 H 107/63 97 10/11/21 06:50 36.9 C 76 23 97 10/11/21 06:45 36.9 C 75 26 H 109/61 97 10/11/21 06:43 36.9 C 75 26 H 108/62 97 10/11/21 06:40 36.8 C 73 26 H 104/59 L 97 10/11/21 06:30 36.8 C 77 26 H 74/44 L 95 10/11/21 06:20 36.8 C 71 23 95 10/11/21 06:15 36.8 C 76 26 H 90/51 L 96 10/11/21 06:10 36.7 C 87 26 H 95 10/11/21 06:09 36.7 C 95 H 26 H 122/63 95 10/11/21 06:00 36.7 C 90 26 H 124/63 97 10/11/21 05:50 36.7 C 105 H 23 92 10/11/21 05:45 36.6 C 85 27 H 126/72 94 10/11/21 05:40 36.6 C 80 26 H 97 10/11/21 05:30 36.6 C 76 26 H 111/63 96 10/11/21 05:15 36.5 C 76 26 H 118/66 97 10/11/21 05:00 36.5 C 71 26 H 100/59 L 96 10/11/21 04:45 36.5 C 73 26 H 102/57 L 95 10/11/21 04:30 36.4 C L 75 26 H 97/55 L 95 10/11/21 04:15 36.4 C L 74 26 H 101/57 L 95 10/11/21 04:10 78 24 95 10/11/21 04:00 36.3 C L 78 26 H 99/55 L 95 10/11/21 03:45 36.3 C L 75 26 H 94/54 L 94 10/11/21 03:30 36.2 C L 84 26 H 114/64 94 10/11/21 03:15 36.2 C L 75 26 H 99/57 L 95 Laboratory Results Short CBC 10/10/21 10/11/21 Range/Units 19:53 05:22 WBC 15.42 H 10.38 (4.8-10.8) K/uL Hgb 11.2 L 10.1 L (12.0-16.0) g/dL Hct 36.2 L 32.0 L (37-47) % Plt Count 571 H 537 H (130-400) K/uL BMP 10/10/21 10/11/21 19:53 05:22 Sodium 128 L 129 L Potassium 3.8 3.5 Chloride 87 L 93 L Carbon Dioxide 31 28 BUN 16 19 Creatinine 0.76 0.52 L Glucose 332 H* 188 H Calcium 9.3 8.7 Cardiac Enzymes 10/10/21 10/10/21 10/11/21 Range/Units 19:53 21:40 05:22 Troponin I 0.05 H* 0.15 H* 9.37 H* (0-0.04) ng/ml 10/11/21 Range/Units 12:52 Troponin I 8.15 H* (0-0.04) ng/ml Liver Function 10/10/21 Range/Units 19:53 Total Bilirubin 0.5 (0.2-1.0) mg/dl AST 29 (13-39) U/L ALT 16 (7-52) U/L Alkaline Phosphatase 89 (34-104) U/L Albumin 3.7 (3.4-5.0) gm/dl Urine 10/10/21 Range/Units 20:05 Urine Color Dark Yellow Urine Appearance Clear (Clear) Urine pH 6.5 (4.5-7.5) Ur Specific [place] 1.017 (1.000-1.030) Urine Protein Negative (Negative) Urine Glucose (UA) Negative (Negative) (1) Respiratory failure Chronicity: acute Respiratory failure complication: hypoxia and hypercapnia Qualified Code(s): J96.01 - Acute respiratory failure with hypoxia; J96.02 - Acute respiratory failure with hypercapnia
[2021-10-11] MEDS: ICU ELECTROLYTE REPLACEMENT PROTOCOL SCH (17:06)
[2021-10-11] MEDS ORDERED: INSULIN GLARGINE SOLOSTAR 100 UNITS/ML 3 ML PEN SC SCH (21:00)
[2021-10-12] MEDS: CEFEPIME 2,000 MG in SYRINGE 0 ML IV SCH ×4 (00:14→23:56)
[2021-10-12] MEDS: TUBE FEEDING WATER FLUSH OG SCH ×7 (00:16→23:56)
[2021-10-12] MEDS: IPRATROPIUM BROMIDE NEB SOLN 0.02% 2.5 ML VIAL INH SCH ×4 (00:20→19:11)
[2021-10-12] MEDS: LEVALBUTEROL 1.25MG/0.5ML NEB INH SCH ×4 (00:20→19:11)
[2021-10-12] MEDS: INSULIN ASPART PER UNIT SC SCH ×6 (00:25→20:25)
[2021-10-12] MEDS: NOREPINEPHRINE/D5W 8 MG/508 ML BAG IV SCH ×2 (03:39→06:28)
[2021-10-12] MEDS: FUROSEMIDE INJ 20 MG/2 ML VIAL IV SCH ×4 (04:06→20:21)
[2021-10-12 04:53] LABS: iSTAT Allen Test Pass; iSTAT Art Bld Gas pCO2 Correct 44 mmHg (35-46); iSTAT Art Bld Gas pH Corrected 7.488 (7.35-7.45); iSTAT Arterial Blood Gas HCO3 33 meg/L (19-24); iSTAT Arterial Blood Gas pCO2 45 mmHg (35-46); iSTAT Arterial Blood Gas pH 7.48 (7.35-7.45); iSTAT Arterial Blood Gas pO2 65 mmHg (80-95); iSTAT Arterial Blood Gas pO2 C 64; iSTAT Carbon Dioxide 35 mmol/L (24-31); iSTAT FiO2 35 %; iSTAT Hematocrit 32 % (37-47); iSTAT Hemoglobin 10.9 g/dl (12.0-16.0); iSTAT Potassium 3.2 mmol/L (3.3-5.0); iSTAT Site R Radial; iSTAT Sodium 133 mmol/L (135-144)
[2021-10-12] MEDS: INSULIN REGULAR 250 UNITS in SODIUM CHLORIDE 0.9% 247.5 ML IV SCH (05:12)
--- NOTE | 2021-10-12 06:44 | Electrocardiogram Report ---
Test Reason : Blood Pressure : / mmHG Vent. Rate : 101 BPM Atrial Rate : 101 BPM P-R Int : 138 ms QRS Dur : 148 ms QT Int : 380 ms P-R-T Axes : 072 030 145 degrees QTc Int : 492 ms Sinus tachycardia Left bundle branch block Abnormal ECG When compared with ECG of 06-AUG-2021 06:33, T wave amplitude has decreased in Inferior leads Confirmed by Michelet Lindquist ([id number]) on 10/12/2021 6:44:25 AM Referred By: REFERRED SELF Confirmed By:Michelet Lindquist
[2021-10-12 07:00] LABS: Calcium 8.5 mg/dl (8.5-10.1); Creatinine Clr Calc Pharmacy 54.5 ml/min; Est GFR (African American) 96.8 ml/min; Est GFR (Non-African American) 83.5 ml/min; Magnesium 1.8 mg/dl (1.7-2.4); Potassium 3.6 mmol/L (3.5-5.1)
[2021-10-12 07:02] LABS: Hematocrit (blood only) 34.1 % (37-47); Hemoglobin 10.7 g/dL (12.0-16.0); Mean Corpuscular Hgb Conc 31.4 g/dL (32-36); Mean Corpuscular Volume 79.7 fL (80-100); Mean Platelet Volume 10.1 fL (7.4-10.4); Platelet Count 518 K/uL (130-400); RDW Coefficient of Variation 15.9 % (11.5-14.5); RDW Standard Deviation 46.4 fL (36.4-46.3); Red Blood Count 4.28 M/uL (4.2-5.4); White Blood Count 25.73 K/uL (4.8-10.8)
[2021-10-12 07:13] LABS: Troponin I 3.54 ng/ml (0-0.04)
--- NOTE | 2021-10-12 08:09 | XRay Report ---
XR chest 1V portable CLINICAL HISTORY: Respiratory failure. COMPARISON STUDY: Chest radiograph October 11, 2021. FINDINGS: The tip of the endotracheal tube is just above the jessica. The tube could be withdrawn 2 cm . Tip of nasogastric tube is at least within the body of the stomach. There is no pneumothorax. Small bilateral pleural effusions and bibasilar opacities persist. Interstitial thickening is unchanged. C ardiomediastinal silhouette is stable. IMPRESSION: 1. Tip of endotracheal tube just above the jessica. The tube could be withdrawn 2 cm. 2. No significant change in small bilateral pleural effusions, bibasilar opacities and interstitial p ulmonary edema. ACT 112: Negative or not required by law. Electronically signed by: Melchor Tafoya M.D. 10/12/2021 8:07 AM
[2021-10-12] MEDS: FAMOTIDINE 20 MG in SYRINGE 3 ML IV SCH ×2 (08:10→20:26)
[2021-10-12] MEDS: ASPIRIN 81 MG CHEW NG SCH (08:10)
[2021-10-12] MEDS: methylPREDNISolone 40 MG in SYRINGE 0 ML IV SCH (08:10)
[2021-10-12] MEDS: MULTI VIT W/MINERALS LIQUID 15 ML UDP PO SCH (08:11)
[2021-10-12] MEDS: MAGNESIUM OXIDE 400 MG TAB NG SCH ×2 (08:12→12:23)
[2021-10-12] MEDS: POTASSIUM CHLORIDE / WTR 10 MEQ/100 ML PLCT IV SCH ×4 (08:13→11:29)
[2021-10-12] MEDS: ICU ELECTROLYTE REPLACEMENT PROTOCOL SCH ×2 (08:13→17:07)
[2021-10-12] MEDS: INSULIN GLARGINE SOLOSTAR 100 UNITS/ML 3 ML PEN SC SCH ×2 (08:31→20:22)
[2021-10-12] MEDS ORDERED: AMIODARONE 150MG / 100ML D5W IV ONE (08:47)
[2021-10-12] MEDS ORDERED: METOPROLOL TARTRATE 1 MG/ML VIAL IV ONE (08:55)
[2021-10-12] MEDS ORDERED: AMIODARONE 360MG / 200ML D5W IV ONE ×2 (09:05→13:36)
[2021-10-12 09:38] LABS: INR 5.4 (0.9-1.1); Prothrombin Time 48.2 Seconds (9.0-12.0)
--- NOTE | 2021-10-12 10:30 | Cardiology Progress Note ---
Date of Service October 12, 2021 Assessment & Plan (1) Left bundle branch block: (2) Heart failure, systolic, with acute decompensation: (3) Atrial flutter with rapid ventricular response: Plan: Pt with onset of atrial flutter with RVR at 8 am, V rates in the 150s. IV amiodarone started and rates down to 110 bpm. I spoke to daughter, Madina, by phone. I feel her prognosis is poor. My advice is that cardiac catheterization would be of very high risk at present, and I am not optimistic it would alter the patient's trajectory. Recommend ongoing supportive care, amiodarone for rhythm control, norepinephrine 0.09 this am, furosemide as BP allows. Discussed at bedside with Dr Ramsey. Admission and Anticipated Discharge Date Admission Date: October 10, 2021 Physical Exam Constitutional: + ill appearing Respiratory: Auscultation: + diminished lung sounds ( Decreased breath sounds bilaterally at the bases) Cardiovascular: Rate/Rhythm: regular rate and regular rhythm Heart Sounds: no murmur Extremities: no edema Gastrointestinal (Abdomen): normal bowel sounds, soft, nontender, no hepatosplenomegaly Results & Data ([facility]) Vital Signs (Past 12 Hours) Vital Signs Temp Pulse Resp BP Pulse Ox 10/12/21 08:58 155 H 125/83 10/12/21 07:30 99 H 24 94 10/12/21 05:45 36.7 C 90 24 98/70 L 91 10/12/21 05:40 36.7 C 90 24 91 10/12/21 05:30 36.7 C 91 H 24 91 10/12/21 05:20 36.7 C 94 H 24 90 10/12/21 05:15 36.8 C 90 24 111/61 91 10/12/21 05:10 36.8 C 91 H 24 91 10/12/21 05:00 36.8 C 93 H 24 91 10/12/21 04:50 36.7 C 87 24 90 10/12/21 04:45 36.7 C 92 H 24 117/63 90 10/12/21 04:40 36.7 C 99 H 24 93 10/12/21 04:30 36.7 C 98 H 26 H 95 10/12/21 04:20 36.7 C 91 H 26 H 94 10/12/21 04:10 36.7 C 108 H 26 H 93 10/12/21 04:00 36.7 C 92 H 26 H 94 10/12/21 03:50 36.8 C 92 H 26 H 94 10/12/21 03:40 36.8 C 93 H 26 H 94 10/12/21 03:30 36.8 C 94 H 26 H 94 10/12/21 03:20 36.8 C 94 H 26 H 93 10/12/21 03:10 36.8 C 95 H 26 H 93 10/12/21 03:00 36.8 C 93 H 26 H 107/51 L 93 10/12/21 02:50 36.8 C 96 H 26 H 93 10/12/21 02:45 36.8 C 94 H 26 H 116/66 93 10/12/21 02:40 36.8 C 93 H 26 H 93 10/12/21 02:30 36.8 C 93 H 26 H 93 10/12/21 02:20 36.8 C 96 H 26 H 93 10/12/21 02:15 36.8 C 97 H 26 H 106/60 93 10/12/21 02:10 36.8 C 96 H 26 H 93 10/12/21 02:00 36.8 C 94 H 26 H 93 10/12/21 01:50 36.8 C 95 H 26 H 93 10/12/21 01:40 36.8 C 93 H 26 H 93 10/12/21 01:30 36.8 C 96 H 26 H 110/71 93 10/12/21 01:20 36.9 C 92 H 26 H 93 10/12/21 01:10 36.9 C 91 H 26 H 93 10/12/21 01:00 36.9 C 92 H 26 H 93 10/12/21 00:50 36.9 C 94 H 26 H 92 10/12/21 00:45 94 H 10/12/21 00:40 36.9 C 96 H 26 H 92 10/12/21 00:30 36.9 C 96 H 26 H 93 10/12/21 00:20 36.9 C 107 H 26 H 92 10/12/21 00:10 36.9 C 90 26 H 92 10/12/21 00:00 36.9 C 90 26 H 91 10/11/21 23:50 36.9 C 92 H 26 H 92 10/11/21 23:40 36.9 C 97 H 26 H 92 10/11/21 23:30 36.9 C 99 H 26 H 92
[2021-10-12 10:52] LABS: Albumin Level 3.2 gm/dl (3.4-5.0); Bilirubin Direct 0.8 mg/dl (0-0.2); Bilirubin,Total 1.4 mg/dl (0.2-1.0); Total Protein 6.7 gm/dl (6.0-8.3)
[2021-10-12] MEDS: DOXYCYCLINE HYCLATE 100 MG in DEXTROSE 5% 100 ML IV SCH ×2 (11:29→21:34)
--- NOTE | 2021-10-12 11:30 | Critical Care Progress Note ---
Date of Service October 12, 2021 Assessment & Plan (1) Admitted to intensive care unit: Plan: Reason Critically Ill: 81-year-old female presenting with acute on chronic hypoxemic respiratory failure in the setting of likely COPD exasperation with associated pulmonary edema and requiring ongoing ventilatory management status post intubation requirement. NEURO - * Follows commands when sedation is weaned down CARDIAC/VASCULAR - * Acute decompensated systolic heart failure as noted on echo. * Personally discussed with Dr. Velez. Continue Lasix 20 mg IV every 6 hours and monitor urine output closely. EF reduced to less than 20%. Cardiac intervention unlikely to alter the course of her disease process. * Continue Levophed to maintain mean arterial pressure above 65. She has a history of atrial fibrillation and will try to avoid dobutamine if able. Previously on sotalol. Started amiodarone infusion due to supraventricular tachycardia. Prognosis is overall poor from a cardiac standpoint. RESPIRATORY - * Acute on chronic hypoxemic respiratory failure: * Likely multifactorial in the setting of pulmonary edema w/ COPD exacerbation. * Severe COPD at baseline and is oxygen dependent. Continue IV steroids for COPD exacerbation. * Continue lung protective ventilation strategy. GI/NUTRITION - * OGT in place. * Prophylaxis: Famotidine RENAL/LYTES - * Replace potassium magnesium per ICU protocol - * Guan in place - Strict I&Os. ENDO - * Hyperglycemia * BSGs per unit protocol. ISS --> gtt per unit policy. HEME - * Stable H&H * Trend INR in the anticoagulated patient w/ h/o A fib ID - * Initially covered w/ antibiotics w/ concerns for pneumonia. * Sputum with Pseudomonas identified LINES/IV ACCESS - * PIVs x2 * ETT * OGT * Guan DVT PROPHYLAXIS - * Coumadin * SCDs Lengthy discussion with daughter at bedside yesterday. Family noted the patient would like to be DNR in the event of a cardiac arrest. Prognosis overall is very poor. I have personally spent 54 minutes of critical care time in the direct management of this patient. This is a life/limb threatening event. This includes time spent evaluating patient, direct bedside care, chart review, placing orders, interpretation of diagnostic studies, discussion with consultants, patient, and family members, as well as other required patient management activities. This time is exclusive of all separately billable procedures, and teaching time and separate from and in addition to any other critical care service time. Thank you for allowing us to participate in the care of this patient. Please refer to my attending physician's documentation for any further recommendations. (2) Respiratory failure: (3) COPD exacerbation: (4) Pulmonary edema: (5) Hypoxia: (6) Diabetes: (7) Hypertension: (8) CHF (congestive heart failure): (9) COPD (chronic obstructive pulmonary disease): (10) Heart failure, systolic, with acute decompensation: Admission and Anticipated Discharge Date Admission Date: October 10, 2021 Subjective Performed SVT at bedside, but the patient went into supraventricular tachycardia with rates in the 170s and required IV metoprolol and amiodarone to be given. Placed back on sedation due to severe agitation, tachypnea and tachycardia. Review of Systems Review of Systems: All systems reviewed & are unremarkable except as noted in HPI & below Physical Exam Physical Exam: VITAL SIGNS - Vital signs and nursing notes were reviewed. GENERAL - 81-year-old female appearing her stated age who is in no acute distress. Intubated and sedated. HEAD - NC/AT. EYES - PERRL with EOMI bilaterally. Sclera anicteric. EARS - No deformities of external structures noted on gross examination bilaterally. NOSE - Midline and without cyanosis. No epistaxis or purulent drainage noted. MOUTH/OROPHARYNX - ETT in place. Without perioral cyanosis. Buccal mucosa pink and moist and without leukoplakia. NECK - Neck with FROM. Supple to palpation. LUNGS - Chest wall symmetric without accessory muscle use, intercostals retractions, or central cyanosis. Coarse breath sounds noted. CARDIAC - RRR with S1/S2. No murmur, rubs, or gallops appreciated. ABDOMEN - Abdominal contour flat without pulsations or visible masses. BS normoactive all four quadrants. No tenderness, palpable masses, hepatosplenomegaly, or ascites noted. EXTREMITIES - No clubbing or peripheral cyanosis. Moderate pretibial edema present. +3/5 radial and dorsalis pedis pulses palpated throughout. NEUROLOGIC - No focal neurological deficits noted. Limited exam secondary to sedation. Results & Data Results & Data ([facility]) Vital Signs (Past 12 Hours) Vital Signs Temp Pulse Resp BP Pulse Ox 10/12/21 08:58 155 H 125/83 10/12/21 07:30 99 H 24 94 10/12/21 05:45 36.7 C 90 24 98/70 L 91 10/12/21 05:40 36.7 C 90 24 91 10/12/21 05:30 36.7 C 91 H 24 91 10/12/21 05:20 36.7 C 94 H 24 90 10/12/21 05:15 36.8 C 90 24 111/61 91 10/12/21 05:10 36.8 C 91 H 24 91 10/12/21 05:00 36.8 C 93 H 24 91 10/12/21 04:50 36.7 C 87 24 90 10/12/21 04:45 36.7 C 92 H 24 117/63 90 10/12/21 04:40 36.7 C 99 H 24 93 10/12/21 04:30 36.7 C 98 H 26 H 95 10/12/21 04:20 36.7 C 91 H 26 H 94 10/12/21 04:10 36.7 C 108 H 26 H 93 10/12/21 04:00 36.7 C 92 H 26 H 94 10/12/21 03:50 36.8 C 92 H 26 H 94 10/12/21 03:40 36.8 C 93 H 26 H 94 10/12/21 03:30 36.8 C 94 H 26 H 94 10/12/21 03:20 36.8 C 94 H 26 H 93 10/12/21 03:10 36.8 C 95 H 26 H 93 10/12/21 03:00 36.8 C 93 H 26 H 107/51 L 93 10/12/21 02:50 36.8 C 96 H 26 H 93 10/12/21 02:45 36.8 C 94 H 26 H 116/66 93 10/12/21 02:40 36.8 C 93 H 26 H 93 10/12/21 02:30 36.8 C 93 H 26 H 93 10/12/21 02:20 36.8 C 96 H 26 H 93 10/12/21 02:15 36.8 C 97 H 26 H 106/60 93 10/12/21 02:10 36.8 C 96 H 26 H 93 10/12/21 02:00 36.8 C 94 H 26 H 93 10/12/21 01:50 36.8 C 95 H 26 H 93 10/12/21 01:40 36.8 C 93 H 26 H 93 10/12/21 01:30 36.8 C 96 H 26 H 110/71 93 10/12/21 01:20 36.9 C 92 H 26 H 93 10/12/21 01:10 36.9 C 91 H 26 H 93 10/12/21 01:00 36.9 C 92 H 26 H 93 10/12/21 00:50 36.9 C 94 H 26 H 92 10/12/21 00:45 94 H 10/12/21 00:40 36.9 C 96 H 26 H 92 10/12/21 00:30 36.9 C 96 H 26 H 93 10/12/21 00:20 36.9 C 107 H 26 H 92 10/12/21 00:10 36.9 C 90 26 H 92 10/12/21 00:00 36.9 C 90 26 H 91 10/11/21 23:50 36.9 C 92 H 26 H 92 10/11/21 23:40 36.9 C 97 H 26 H 92 10/11/21 23:30 36.9 C 99 H 26 H 92 Coding Level of Care Code Critical Care 1st 30-74 mins Diagnoses Admitted to intensive care unit Z78.9 Respiratory failure J96.01; J96.02 Chronicity: acute Respiratory failure complication: hypoxia and hypercapnia COPD exacerbation J44.1 Pulmonary edema J81.0 Chronicity: acute Hypoxia R09.02 Diabetes E11.9 Hypertension I10 CHF (congestive heart failure) I50.9 COPD (chronic obstructive pulmonary disease) J44.9 COPD type: unspecified COPD Heart failure, systolic, with acute decompensation I50.23 (1) Respiratory failure Chronicity: acute Respiratory failure complication: hypoxia and hypercapnia Qualified Code(s): J96.01 - Acute respiratory failure with hypoxia; J96.02 - Acute respiratory failure with hypercapnia (2) Pulmonary edema Chronicity: acute Qualified Code(s): J81.0 - Acute pulmonary edema (3) COPD (chronic obstructive pulmonary disease) COPD type: unspecified COPD Qualified Code(s): J44.9 - Chronic obstructive pulmonary disease, unspecified
--- NOTE | 2021-10-12 13:44 | Pharmacy Report ---
Pharmacy Glycemic Short Note 2 - Date of Service October 12, 2021 - Glycemic Short BSG Results (Last 24 hours): 10/11/21 10/11/21 10/11/21 13:51 15:18 15:55 Glucose POC Glucose 174 H 171 H 144 H 10/11/21 10/11/21 10/11/21 17:05 18:00 19:10 Glucose POC Glucose 135 H 161 H 171 H 10/11/21 10/11/21 10/11/21 20:36 21:35 22:48 Glucose POC Glucose 150 H 151 H 225 H 10/11/21 10/12/21 10/12/21 23:40 00:17 01:14 Glucose POC Glucose 160 H 159 H 149 H 10/12/21 10/12/21 10/12/21 02:20 03:29 04:30 Glucose POC Glucose 149 H 128 H 130 H 10/12/21 10/12/21 10/12/21 05:31 05:52 06:26 Glucose 127 H POC Glucose 136 H 126 H 10/12/21 10/12/21 08:20 11:46 Glucose POC Glucose 116 H 178 H OUTPATIENT ANTIDIABETIC REGIMEN: * Lantus 12 units daily * Metformin 1gm PO BID ASSESSMENT: 10/12: * Insulin drip weaned off this AM given low rate (0.8unit/hr) after receiving 15 units of Lantus in addition yesterday. Remains intubated, sedated and on norepi (0.09mcg/kg/min). Abx & steroids continue. Peptamen tube feeds being titrated. * Transitioned to subcut Lantus 10 units BID (wt/stress 2) with Novolog q4h scale that was tightened this afternoon given rising BSG at lunch. 10/11 * Patient presents with acute on chronic hypoxemic respiratory failure. Patient is critically ill, intubated and sedated. History of DM2. Initiated on insulin infusion per ICU protocol (BSG on admission - 332mg/dL). Pharmacy consulted to assist with glycemic management and drip transition. * Insulin drip initiated ~ midnight last night, with an average rate of 2.3 units/hr. BSGs down trending and within goal ~ 0600 this AM. * NPO --> Peptamen @ [facility] this afternoon, receiving 40mg daily Solu Medrol, antibiotics, and pressors. Given high acuity and multiple variable stressors, plan to give 10 units Lantus X 1 now (Wt/stress 2). Will allow insulin infusion to continue to run for today (OK if weans itself off). HS Lantus scal e depending on insulin drip rate. If drip is running <1 unit/hr, contact pharmacy to discontinue. * Novolog scale for carb coverage of tube feeds. PLAN FOR INPATIENT GLYCEMIC CONTROL: * Hold outpatient oral diabetes medications * Basal insulin * Lantus 10 units BID * Bolus insulin * NovoLog per scale q4h * Goal Range: Low 140mg/dL - High 180 mg/dL * Nutritional / Prandial insulin per carb ratio of 1 unit per 6 grams CHO consumed * Correction: 1 unit per 20 mg/dL > 140 PLAN FOR DISCHARGE: *
[2021-10-12] MEDS ORDERED: 0.2 MICRON FILTER SET 1 EA IV ONE (13:49)
[2021-10-12] MEDS ORDERED: AMIODARONE IV BOLUS & DRIP IV STA (13:49)
[2021-10-12] MEDS ORDERED: AMIODARONE / D5W 150 MG/100 ML BAG IV STA (13:49)
[2021-10-12] MEDS ORDERED: STAT IV Infusion **Titration per Protocol STA (13:49)
[2021-10-12] MEDS ORDERED: AMIODARONE / D5W 360 MG/200 ML BAG IV ONE (13:59)
--- NOTE | 2021-10-12 18:40 | Hospitalist Progress Note ---
Date of Service October 12, 2021 Assessment & Plan (1) Respiratory failure: Plan: Acute on chronic respiratory failure Likely multifactorial: CHF, COPD exacerbation, pulmonary hypertension Primary Respiratory acidosis Possible B/L Pneumonia Normal Procalcitonin Cardiogenic/Septic Shock --CXR:Interval development of the pulmonary edema and small bilateral pleural effusions. Bibasilar densities are nonspecific but could be due to atelectasis from the pleural effusions or a pneumonia. 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 Bibasilar densities are nonspecific but could be due to atelectasis from the pleural effusions or a pneumonia. -ECHO: Mild concentric LVH. Septal wall motion is abnormal consistent with LBBB. Left ventricle apex is akinetic. Diffuse hypokinesis to akinesis with minimal sparing of basal segments. EF< 20%. Moderate to severe pulmonary hypertension. Grade 1 diastolic dysfunction. -INR supratherapeutic May need IV heparin bridge if INR less than 2 Appreciate cardiology input Lisinopril, HCTZ, amlodipine, sotalol held due to hypotension continue IV diuresis 20 mg every 6 hours as tolerated Monitor volume status Very high risk for cardiac catheterization as per cardiology. Poor prognosis Acute metabolic encephalopathy Secondary to above -CT Head:No acute intracranial hemorrhage, no evidence of acute territorial infarction or other acute intracranial disease proces SVT Paroxysmal atrial fibrillation INR supratherapeutic Home medications held secondary to hypotension Monitor INR:3.7>5.4 Started on amiodarone drip Hyponatremia on HCTZ at home Sodium level 134 Monitor DM II Last HbA1C: 8.0 Continue insulin Monitor BGs Breast cancer S/P surgery/radiation DVT Px: INR supratherapeutic Code Status Full code Admission and Anticipated Discharge Date Admission Date: October 10, 2021 Subjective Patient is seen and examined at bedside Sedated and Intubated currently On pressors Patient went into SVT this morning and was started on amiodarone drip Poor prognosis Review of Systems Review of Systems: Unobtainable due to endotracheal tube Physical Exam Physical Exam: Physical Exam: Vitals signs as noted above General Appearance:Moderately built and nourished, no apparent distress, Intubated and sedated Head: normocephalic, Atraumatic Eyes: normal inspection Neck: supple, Trachea midline Respiratory/Chest: Coarse decreased breath sounds, No accessory muscle use Cardiovascular: S1, S2, No murmur Abdomen/GI:Soft, Non tender, Bowel sounds present Extremities/Musculoskeletal:normal inspection, Trace edema Neurologic/Psych:Limited exam due to sedation and intubation Skin: normal color, warm Results & Data Results & Data ([facility]) Vital Signs (Past 12 Hours) Vital Signs Temp Pulse Resp BP Pulse Ox 10/12/21 16:15 37.1 C 91 H 20 94 10/12/21 16:00 37.2 C 93 H 20 106/63 93 10/12/21 15:45 37.2 C 96 H 21 90 10/12/21 15:30 37.2 C 95 H 20 90 10/12/21 15:25 96 H 20 96 10/12/21 15:15 37.2 C 96 H 20 94 10/12/21 15:00 37.2 C 93 H 21 99/59 L 94 10/12/21 14:45 37.2 C 97 H 17 94 10/12/21 14:30 37.2 C 98 H 20 94 10/12/21 14:15 37.2 C 101 H 20 94 10/12/21 14:00 37.2 C 99 H 20 100/58 L 93 10/12/21 13:45 37.2 C 100 H 20 93 10/12/21 13:30 37.2 C 99 H 20 93 10/12/21 13:15 37.3 C 100 H 20 93 10/12/21 13:00 37.3 C 101 H 20 98/61 L 92 10/12/21 12:45 37.3 C 103 H 20 92 10/12/21 12:30 37.3 C 98 H 20 93 10/12/21 12:25 36.8 C 10/12/21 12:15 37.4 C 98 H 20 97 10/12/21 12:05 37.4 C 98 H 20 101/67 96 10/12/21 12:02 37.4 C 99 H 20 97 10/12/21 11:45 37.4 C 97 H 20 10/12/21 11:30 37.5 C 98 H 20 10/12/21 11:15 37.5 C 101 H 20 98/63 L 10/12/21 11:07 111 H 20 96 10/12/21 11:00 37.5 C 108 H 18 10/12/21 10:45 37.5 C 104 H 17 10/12/21 10:30 37.6 C H 105 H 25 H 95 10/12/21 10:15 37.6 C H 108 H 22 109/63 95 10/12/21 10:00 37.5 C 108 H 21 74/62 L 93 10/12/21 09:45 37.5 C 108 H 21 92 10/12/21 09:30 37.4 C 112 H 20 91 10/12/21 09:15 37.3 C 110 H 20 92 10/12/21 09:14 37.3 C 106 H 20 102/66 92 10/12/21 09:06 37.2 C 106 H 24 73/52 L 91 10/12/21 09:00 37.2 C 131 H 24 93/59 L 91 10/12/21 08:58 155 H 125/83 10/12/21 08:51 37.1 C 163 H 30 H 125/83 88 L 10/12/21 08:45 37.0 C 154 H 30 H 100/73 90 10/12/21 08:30 36.9 C 106 H 24 92 10/12/21 08:15 36.9 C 101 H 24 98/54 L 92 10/12/21 08:00 36.9 C 101 H 24 91 10/12/21 07:30 99 H 24 94 Laboratory Results Short CBC 10/12/21 Range/Units 05:52 WBC 25.73 H (4.8-10.8) K/uL Hgb 10.7 L (12.0-16.0) g/dL Hct 34.1 L (37-47) % Plt Count 518 H (130-400) K/uL BMP 10/12/21 05:52 Sodium 134 L Potassium 3.6 Chloride 94 L Carbon Dioxide 31 BUN 17 Creatinine 0.63 Glucose 127 H Calcium 8.5 Cardiac Enzymes 10/12/21 Range/Units 05:52 Troponin I 3.54 H* (0-0.04) ng/ml Liver Function 10/12/21 Range/Units 05:52 Total Bilirubin 1.4 H D (0.2-1.0) mg/dl Direct Bilirubin 0.8 H (0-0.2) mg/dl AST 14 (13-39) U/L ALT 5 L (7-52) U/L Alkaline Phosphatase 66 (34-104) U/L Albumin 3.2 L (3.4-5.0) gm/dl (1) Respiratory failure Chronicity: acute Respiratory failure complication: hypoxia and hypercapnia Qualified Code(s): J96.01 - Acute respiratory failure with hypoxia; J96.02 - Acute respiratory failure with hypercapnia
--- NOTE | 2021-10-12 21:42 | Electrocardiogram Report ---
Test Reason : Blood Pressure : / mmHG Vent. Rate : 153 BPM Atrial Rate : 306 BPM P-R Int : 000 ms QRS Dur : 136 ms QT Int : 336 ms P-R-T Axes : 000 038 109 degrees QTc Int : 536 ms Atrial flutter with 2:1 A-V conduction Left bundle branch block Abnormal ECG When compared with ECG of 11-NOV-2017 13:52, Atrial flutter has replaced Sinus rhythm Vent. rate has increased BY 75 BPM Left bundle branch block is now Present Confirmed by Michelet Lindquist ([id number]) on 10/12/2021 9:42:31 PM Referred By: REFERRED SELF Confirmed By:Michelet Lindquist
[2021-10-12] MEDS: AMIODARONE / D5W 360 MG/200 ML BAG IV SCH (22:52)
[2021-10-12] MEDS: fentaNYL citrate 2,500 MCG/250 ML BAG IV SCH (22:53)
[2021-10-12] MEDS: MIDAZOLAM HCL 125 MG/250 ML BAG IV PRN (22:53)
[2021-10-12 23:02] LABS: Prothrombin Time 61.9 Seconds (9.0-12.0)
[2021-10-12 23:04] LABS: INR 7.1 (0.9-1.1)
[2021-10-13] MEDS: INSULIN ASPART PER UNIT SC SCH ×7 (00:04→23:54)
[2021-10-13] MEDS: IPRATROPIUM BROMIDE NEB SOLN 0.02% 2.5 ML VIAL INH SCH ×4 (00:34→20:10)
[2021-10-13] MEDS: LEVALBUTEROL 1.25MG/0.5ML NEB INH SCH ×4 (00:34→20:10)
[2021-10-13] MEDS: TUBE FEEDING WATER FLUSH OG SCH ×6 (03:12→23:46)
[2021-10-13] MEDS: FUROSEMIDE INJ 20 MG/2 ML VIAL IV SCH ×4 (03:12→21:58)
[2021-10-13 04:46] LABS: iSTAT Allen Test Pass; iSTAT Art Bld Gas pCO2 Correct 60 mmHg (35-46); iSTAT Art Bld Gas pH Corrected 7.379 (7.35-7.45); iSTAT Arterial Blood Gas HCO3 35 meg/L (19-24); iSTAT Arterial Blood Gas pCO2 59 mmHg (35-46); iSTAT Arterial Blood Gas pH 7.38 (7.35-7.45); iSTAT Arterial Blood Gas pO2 56 mmHg (80-95); iSTAT Arterial Blood Gas pO2 C 57; iSTAT Carbon Dioxide 37 mmol/L (24-31); iSTAT FiO2 35 %; iSTAT Hematocrit 32 % (37-47); iSTAT Hemoglobin 10.9 g/dl (12.0-16.0); iSTAT Potassium 3.7 mmol/L (3.3-5.0); iSTAT Site L Radial; iSTAT Sodium 133 mmol/L (135-144)
[2021-10-13 06:26] LABS: Basophils # (auto) 0.01 K/uL (0-0.2); Hematocrit (blood only) 32.3 % (37-47); Hemoglobin 9.9 g/dL (12.0-16.0); Immature Granulocytes # (auto) 0.07 K/uL (0.00-0.02); Immature Granulocytes % (auto) 0.3 %; Lymphocytes % (auto) 6.3 %; Mean Corpuscular Hemoglobin 24.9 pg (25-34); Mean Corpuscular Hgb Conc 30.7 g/dL (32-36); Mean Corpuscular Volume 81.2 fL (80-100); Mean Platelet Volume 10.5 fL (7.4-10.4); Monocytes % (auto) 8.5 %; Neutrophils # (auto) 18.85 K/uL (1.4-6.5); Neutrophils % (auto) 84.9 %; Platelet Count 528 K/uL (130-400); RDW Standard Deviation 47.7 fL (36.4-46.3); Red Blood Count 3.98 M/uL (4.2-5.4); White Blood Count 22.23 K/uL (4.8-10.8)
[2021-10-13 06:37] LABS: BUN Creatinine Ratio 36.8 (10-20); Calcium 8.2 mg/dl (8.5-10.1); Creatinine Clr Calc Pharmacy 60.2 ml/min; Est GFR (African American) 100.1 ml/min; Est GFR (Non-African American) 86.3 ml/min; Magnesium 1.8 mg/dl (1.7-2.4); Phosphorus 3.5 mg/dl (2.5-4.9)
[2021-10-13 06:56] LABS: Prothrombin Time 59.1 Seconds (9.0-12.0)
[2021-10-13 07:01] LABS: INR 6.8 (0.9-1.1)
--- NOTE | 2021-10-13 08:00 | XRay Report ---
XR chest 1V portable HISTORY: Respiratory failure. COMPARISON: Chest 10/12/2021. FINDINGS: A nasogastric tube terminates below the diaphragm. The endotracheal tube terminates 2.7 cm from the jessica. No pneumothorax. Emphysema. The heart is mildly enlarged. Small bilateral pleural ef fusions and bibasilar densities persist. There is mild interstitial pulmonary edema, unchanged. IMPRESSION: 1. Satisfactory support line placement. 2. No change in the small bilateral pleural effusions, bibasilar opacities, and mild interstitial pul monary edema. ACT 112: Negative or not required by law. Electronically signed by: Robert Zendejas M.D. 10/13/2021 7:59 AM
[2021-10-13] MEDS: methylPREDNISolone 40 MG in SYRINGE 0 ML IV SCH (08:04)
[2021-10-13] MEDS: CEFEPIME 2,000 MG in SYRINGE 0 ML IV SCH ×3 (08:04→23:54)
[2021-10-13] MEDS: ASPIRIN 81 MG CHEW NG SCH (08:05)
[2021-10-13] MEDS: MULTI VIT W/MINERALS LIQUID 15 ML UDP PO SCH (08:05)
[2021-10-13] MEDS: POTASSIUM CHLORIDE 20 MEQ/15 ML UDC NG SCH ×2 (08:11→12:13)
[2021-10-13] MEDS: MAGNESIUM SULFATE / D5W 1 GM/100 ML BAG IV SCH ×2 (08:12→10:54)
[2021-10-13] MEDS: FAMOTIDINE 20 MG in SYRINGE 3 ML IV SCH ×2 (08:17→19:53)
[2021-10-13] MEDS: ICU ELECTROLYTE REPLACEMENT PROTOCOL SCH ×2 (08:18→17:26)
[2021-10-13] MEDS: INSULIN GLARGINE SOLOSTAR 100 UNITS/ML 3 ML PEN SC SCH ×2 (08:42→20:06)
--- NOTE | 2021-10-13 09:48 | Cardiology Progress Note ---
Date of Service October 13, 2021 Assessment & Plan (1) Heart failure, systolic, with acute decompensation: (2) Atrial flutter with rapid ventricular response: (3) Left bundle branch block: Plan: 81 year old female with longstanding history of severe oxygen dependent COPD, past pAF for which pt is on sotalol and coumadin. Newly recognized LBBB observed early August, with LVEF 55% at that time. Presented with 3 days of worsening respiratory status, CXR with profound pulmonary edema on presentation, echo with new severe systolic dysfunction LVEF ~20%, severe decline in LVEF out of proportion to relatively mild troponin elevation, with findings on echocardiogram perhaps compatible with stress induced cardiomyopathy Ventilator Fio2 : 40% Norepinephrine 007 mcg/ kg/min Amiodarone 0.5 mg/min Fentanyl 125 mcg/min Versed 4 mg/hr Tube feeds 40 ml/hr lines: ETT, Guan catheter 1) Heart failure, systolic, with acute decompensation: -continue furosemide 20 mg IV QID, hyponatremia improving, about 2 L output for each of last 2 days Low BP prevents beta mamadou, CINDA / ARB at present. (2) Atrial flutter with rapid ventricular response: -Had been in AFib, atrial flutter briefly overnight, converted at 5:[address] appears to be SR at 95 bpm. -Continue amiodarone -Sotalol on hold favoring IV amiodarone for rhythm control. -INR 6.8, coumadin on hold, proceed with IV vitamin K 1.25 mg x 1. (3) Left bundle branch block: -as first noted 08/2021. - repeat echo am of 10/14/21. Discussed with Dr Ramsey. Admission and Anticipated Discharge Date Admission Date: October 10, 2021 Gutierrez Rodriguez is seen in cardiology follow up of respiratory failure with acute heart failure with reduced ejection fraction. Pt remains on ventilator support. Review of Systems Review of Systems: Unobtainable due to endotracheal tube Physical Exam Physical Exam: Temp Pulse Resp BP Pulse Ox 37.7 C H 91 H 20 97/55 L 99 10/13/21 06:30 10/13/21 06:30 10/13/21 06:30 10/13/21 06:30 10/13/21 06:30 Constitutional: + ill appearing Respiratory: Auscultation: + diminished lung sounds ( Decreased breath sounds bilaterally at the bases) Cardiovascular: Rate/Rhythm: regular rate and regular rhythm Heart Sounds: no murmur Extremities: no edema Gastrointestinal (Abdomen): normal bowel sounds, soft, nontender, no hepatosplenomegaly Results & Data ([facility]) Laboratory Results Cardiac Enzymes 10/12/21 Range/Units 05:52 AST 14 (13-39) U/L Coagulation 10/12/21 10/12/21 10/13/21 Range/Units 05:52 22:27 05:22 PT 48.2 H 61.9 H 59.1 H (9.0-12.0) Seconds CBC 10/13/21 Range/Units 05:22 WBC 22.23 H (4.8-10.8) K/uL RBC 3.98 L (4.2-5.4) M/uL Hgb 9.9 L (12.0-16.0) g/dL Hct 32.3 L (37-47) % Plt Count 528 H (130-400) K/uL Neut # (Auto) 18.85 H (1.4-6.5) K/uL Lymph # (Auto) 1.40 (1.2-3.4) K/uL [facility] # (Auto) 1.90 H (0.11-0.59) K/uL Eos # (Auto) 0.00 (0-0.5) K/uL Baso # (Auto) 0.01 (0-0.2) K/uL Comprehensive Metabolic Panel 10/12/21 10/13/21 10/13/21 Range/Units 05:52 05:22 06:53 Sodium 133 L (136-145) mmol/L Potassium 3.7 (3.5-5.1) mmol/L Chloride 93 L (98-107) mmol/L Carbon Dioxide 33 H (21-32) mmol/L BUN 21 (6-23) mg/dl Creatinine 0.57 L (0.6-1.2) mg/dl Glucose 145 H (70-99(Fasting)) mg/dl Calcium 8.2 L (8.5-10.1) mg/dl Direct Bilirubin 0.8 H (0-0.2) mg/dl AST 14 (13-39) U/L ALT 5 L (7-52) U/L Alkaline Phosphatase 66 (34-104) U/L Total Protein 6.7 (6.0-8.3) gm/dl Albumin 3.2 L (3.4-5.0) gm/dl Intake and Output 10/12/21 10/13/21 10/13/21 22:59 06:59 14:59 Intake Total 674.109 / 2187.373 570.55 / 2187.373 337.559 / 337.559 Output Total 950 / 2750 425 / 2750 Balance -275.891 / -562.627 145.55 / -562.627 337.559 / 337.559 Intake: IV 514.109 / 1497.373 330.55 / 1497.373 337.559 / 337.559 Amiodarone / D5w 360 mg In 200 82.050 / 200.000 117.95 / 200.000 136.94 / 136.94 ml @ 0.5 MG/MIN 16.667 mls/hr IV .Q12H JOHN Rx#:[id number] Doxycycline Hyclate 100 mg In 110 / 220 Dextrose 5% 100 ml @ 50 mls/hr IV Q12H JOHN Rx#:[id number] Midazolam HCl 125 mg In 250 ml 88.767 / 98.034 65.467 / 65.467 @ 4 MG/HR 8 mls/hr IV .[id number] PRN Rx#:[id number] Norepinephrine/D5w 8 mg In 508 266.25 / 368.85 102.6 / 368.85 32.86 / 32.86 ml @ 0.07 MCG/KG/MIN 15.949 mls /hr IV .Q24H JOHN Rx#:[id number] fentaNYL citrate 2,500 mcg In 77.042 / 110.209 102.292 / 102.292 250 ml @ 125 MCG/HR 12.5 mls/hr IV .Q20H JOHN Rx#:[id number] Tube Feeding 160 / 480 240 / 480 Output: Urine Amount (Catheter) 950 / 2750 425 / 2750 Guan/Indwelling 950 / 2750 425 / 2750 # Bowel Movements 0 / 0 0 / 0 Other: Weight 37.1 kg Weight Measurement Method Built in [facility]
[2021-10-13] MEDS ORDERED: PHYTONADIONE IV ONE (10:00)
[2021-10-13] MEDS ORDERED: DEXTROSE 5% IV ONE (10:00)
[2021-10-13] MEDS ORDERED: STAT IV Infusion **Titration per Protocol STA (10:17)
[2021-10-13] MEDS: DOXYCYCLINE HYCLATE 100 MG in DEXTROSE 5% 100 ML IV SCH ×2 (10:31→21:58)
[2021-10-13] MEDS: DEXMEDETOMIDINE HCL 200 MCG in SODIUM CHLORIDE 0.9% 48 ML IV SCH ×3 (10:52→23:40)
[2021-10-13] MEDS: NOREPINEPHRINE/D5W 8 MG/508 ML BAG IV SCH (10:53)
[2021-10-13] MEDS: AMIODARONE / D5W 360 MG/200 ML BAG IV SCH ×2 (10:56→23:40)
--- NOTE | 2021-10-13 11:35 | Critical Care Progress Note ---
Date of Service October 13, 2021 Assessment & Plan (1) Admitted to intensive care unit: Plan: Reason Critically Ill: 81-year-old female presenting with acute on chronic hypoxemic respiratory failure in the setting of likely COPD exasperation with associated pulmonary edema and requiring ongoing ventilatory management status post intubation requirement. NEURO - * Follows commands when sedation is weaned down CARDIAC/VASCULAR - * Acute decompensated systolic heart failure as noted on echo. * Personally discussed with Dr. Velez. Continue Lasix 20 mg IV every 6 hours and monitor urine output closely. EF reduced to less than 20%. Cardiac intervention unlikely to alter the course of her disease process. * Continue Levophed to maintain mean arterial pressure above 65. She has a history of atrial fibrillation and will try to avoid dobutamine if able. Previously on sotalol. Started amiodarone infusion due to supraventricular tachycardia. Prognosis is overall poor from a cardiac standpoint. * INR elevated * Repeat echo to see if EF improves RESPIRATORY - * Acute on chronic hypoxemic respiratory failure: * Likely multifactorial in the setting of pulmonary edema w/ COPD exacerbation. * Severe COPD at baseline and is oxygen dependent. Continue IV steroids for COPD exacerbation. * Continue lung protective ventilation strategy. GI/NUTRITION - * OGT in place. * Prophylaxis: Famotidine * Vitamin K administered 10/13 due to elevated INR RENAL/LYTES - * Replace potassium and magnesium per ICU protocol - * Guan in place - Strict I&Os. ENDO - * Hyperglycemia * BSGs per unit protocol. ISS --> gtt per unit policy. HEME - * Stable H&H * Trend INR in the anticoagulated patient w/ h/o A fib * Vitamin K given ID - * Initially covered w/ antibiotics w/ concerns for pneumonia. * Sputum with Pseudomonas identified which is sensitive to cefepime LINES/IV ACCESS - * PIVs x2 * ETT * OGT * Guan DVT PROPHYLAXIS - * Coumadin on hold * SCDs I have personally spent 33 minutes of critical care time in the direct management of this patient. This is a life/limb threatening event. This includes time spent evaluating patient, direct bedside care, chart review, placing orders, interpretation of diagnostic studies, discussion with consultants, patient, and family members, as well as other required patient management activities. This time is exclusive of all separately billable procedures, and teaching time and separate from and in addition to any other critical care service time. Thank you for allowing us to participate in the care of this patient. Please refer to my attending physician's documentation for any further recommendations. (2) Respiratory failure: (3) COPD exacerbation: (4) Pulmonary edema: (5) Hypoxia: (6) Diabetes: (7) Hypertension: (8) CHF (congestive heart failure): (9) COPD (chronic obstructive pulmonary disease): (10) Heart failure, systolic, with acute decompensation: Admission and Anticipated Discharge Date Admission Date: October 10, 2021 Subjective Purposeful movement when sedation weaned. Unable to tolerate SBT due to severe tachycardia and increasing respiratory distress. Review of Systems Review of Systems: Unobtainable due to cognitive status and Unobtainable due to endotracheal tube Physical Exam Physical Exam: VITAL SIGNS - Vital signs and nursing notes were reviewed. GENERAL - 81-year-old female appearing her stated age who is in no acute distress. Intubated and sedated. HEAD - NC/AT. EYES - PERRL with EOMI bilaterally. Sclera anicteric. EARS - No deformities of external structures noted on gross examination b ilaterally. NOSE - Midline and without cyanosis. No epistaxis or purulent drainage noted. MOUTH/OROPHARYNX - ETT in place. Without perioral cyanosis. Buccal mucosa pink and moist and without leukoplakia. NECK - Neck with FROM. Supple to palpation. LUNGS - Chest wall symmetric without accessory muscle use, intercostals retractions, or central cyanosis. Coarse breath sounds noted. CARDIAC - RRR with S1/S2. No murmur, rubs, or gallops appreciated. ABDOMEN - Abdominal contour flat without pulsations or visible masses. BS normoactive all four quadrants. No tenderness, palpable masses, hepatosplen omegaly, or ascites noted. EXTREMITIES - No clubbing or peripheral cyanosis. Moderate pretibial edema present. +3/5 radial and dorsalis pedis pulses palpated throughout. NEUROLOGIC - No focal neurological deficits noted. Limited exam secondary to sedation. Results & Data Results & Data ([facility]) Vital Signs (Past 12 Hours) Vital Signs Temp Pulse Pulse Resp BP BP Pulse Ox 10/13/21 07:50 91 H 20 100 10/13/21 06:30 37.7 C H 91 H 20 97/55 L 99 10/13/21 06:00 37.6 C H 91 H 20 102/54 L 98 10/13/21 05:30 37.6 C H 92 H 20 100/55 L 98 10/13/21 05:09 96 H 20 107/61 97 10/13/21 05:08 37.6 C H 95 H 18 107/65 97 10/13/21 05:01 37.6 C H 88 20 100/58 L 94 10/13/21 04:30 111 H 20 95/58 L 96 10/13/21 04:23 120 H 20 92 10/13/21 04:00 37.1 C 89 20 95/52 L 93 10/13/21 03:30 37.1 C 87 20 92/48 L 93 10/13/21 03:00 87 20 90/52 L 94 10/13/21 02:30 88 20 90/52 L 96 10/13/21 02:00 89 20 89/50 L 95 10/13/21 01:30 89 20 93/52 L 93 10/13/21 01:00 89 20 94/54 L 93 10/13/21 00:36 86 20 95 10/13/21 00:30 86 20 100/54 L 95 10/13/21 00:00 36.7 C 83 20 104/58 L 93 Coding Level of Care Code Critical Care 1st 30-74 mins Diagnoses Admitted to intensive care unit Z78.9 Respiratory failure J96.01; J96.02 Chronicity: acute Respiratory failure complication: hypoxia and hypercapnia COPD exacerbation J44.1 Pulmonary edema J81.0 Chronicity: acute Hypoxia R09.02 Diabetes E11.9 Hypertension I10 CHF (congestive heart failure) I50.9 COPD (chronic obstructive pulmonary disease) J44.9 COPD type: unspecified COPD Heart failure, systolic, with acute decompensation I50.23 (1) Respiratory failure Chronicity: acute Respiratory failure complication: hypoxia and hypercapnia Qualified Code(s): J96.01 - Acute respiratory failure with hypoxia; J96.02 - Acute respiratory failure with hypercapnia (2) Pulmonary edema Chronicity: acute Qualified Code(s): J81.0 - Acute pulmonary edema (3) COPD (chronic obstructive pulmonary disease) COPD type: unspecified COPD Qualified Code(s): J44.9 - Chronic obstructive pulmonary disease, unspecified
--- NOTE | 2021-10-13 13:47 | Pharmacy Report ---
Pharmacy Glycemic Short Note 2 - Date of Service October 13, 2021 - Glycemic Short BSG Results (Last 24 hours): 10/12/21 10/12/21 10/12/21 15:44 20:12 23:59 Glucose POC Glucose 220 H 171 H 220 H POC Glucose (other) 10/13/21 10/13/21 10/13/21 04:19 05:22 08:14 Glucose 145 H POC Glucose 203 H 76 POC Glucose (other) 10/13/21 10/13/21 08:32 12:10 Glucose POC Glucose 164 H POC Glucose (other) 80 OUTPATIENT ANTIDIABETIC REGIMEN: * Lantus 12 units daily * Metformin 1gm PO BID ASSESSMENT: 10/13 * Patient's BSGs yesterday were [phone] and overnight were 220-203 mg/dL. "Fasting" this morning was 76 mg/dL. * Decrease Lantus to 5 units BID- patient continues on Levophed at 0.07 mcg/kg/min plus Solu-Medrol 40 mg IV daily so prefer to utilize bolus insulin to control BSGs. * Tighten CR since basal decreased. 10/12: * Insulin drip weaned off this AM given low rate (0.8unit/hr) after receiving 15 units of Lantus in addition yesterday. Remains intubated, sedated and on norepi (0.09mcg/kg/min). Abx & steroids continue. Peptamen tube feeds being titrated. * Transitioned to subcut Lantus 10 units BID (wt/stress 2) with Novolog q4h scale that was tightened this afternoon given rising BSG at lunch. 10/11 * Patient presents with acute on chronic hypoxemic respiratory failure. Patient is critically ill, intubated and sedated. History of DM2. Initiated on insulin infusion per ICU protocol (BSG on admission - 332mg/dL). Pharmacy consulted to assist with glycemic management and drip transition. * Insulin drip initiated ~ midnight last night, with an average rate of 2.3 units/hr. BSGs down trending and within goal ~ 0600 this AM. * NPO --> Peptamen @ trickle this afternoon, receiving 40mg daily Solu Medrol, antibiotics, and pressors. Given high acuity and multiple variable stressors, plan to give 10 units Lantus X 1 now (Wt/stress 2). Will allow insulin infusion to continue to run for today (OK if weans itself off). HS Lantus scale depending on insulin drip rate. If drip is running <1 unit/hr, contact pharmacy to discontinue. * Novolog scale for carb coverage of tube feeds. PLAN FOR INPATIENT GLYCEMIC CONTROL: * Hold outpatient oral diabetes medications * Basal insulin * Lantus 5 units BID * Bolus insulin * NovoLog per scale q4h * Goal Range: Low 140mg/dL - High 180 mg/dL * Nutritional / Prandial insulin per carb ratio of 1 unit per 5 grams CHO consumed * Correction: 1 unit per 20 mg/dL > 140 PLAN FOR DISCHARGE: * TBD
--- NOTE | 2021-10-13 15:21 | Hospitalist Progress Note ---
Date of Service October 13, 2021 Assessment & Plan (1) Respiratory failure: Plan: Acute on chronic respiratory failure Likely multifactorial: CHF, COPD exacerbation, pulmonary hypertension Primary Respiratory acidosis Possible B/L Pneumonia Normal Procalcitonin Cardiogenic/Septic Shock --CXR:Interval development of the pulmonary edema and small bilateral pleural effusions. Bibasilar densities are nonspecific but could be due to atelectasis from the pleural effusions or a pneumonia. 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 Bibasilar densities are nonspecific but could be due to atelectasis from the pleural effusions or a pneumonia. -ECHO: Mild concentric LVH. Septal wall motion is abnormal consistent with LBBB. Left ventricle apex is akinetic. Diffuse hypokinesis to akinesis with minimal sparing of basal segments. EF< 20%. Moderate to severe pulmonary hypertension. Grade 1 diastolic dysfunction. -INR supratherapeutic May need IV heparin bridge if INR less than 2 Appreciate cardiology input Lisinopril, HCTZ, amlodipine, sotalol held due to hypotension continue IV lasix 20 mg every 6 hours as tolerated Monitor volume status Very high risk for cardiac catheterization as per cardiology. Poor prognosis Acute metabolic encephalopathy Secondary to above -CT Head:No acute intracranial hemorrhage, no evidence of acute territorial infarction or other acute intracranial disease proces SVT Paroxysmal atrial fibrillation INR supratherapeutic Home medications held secondary to hypotension Monitor INR:3.7>5.4>6.8 Continue amiodarone drip Received a dose of Vit K Hyponatremia on HCTZ at home Sodium level 133 Monitor DM II Last HbA1C: 8.0 Continue insulin Monitor BGs Breast cancer S/P surgery/radiation DVT Px: INR supratherapeutic Code Status Full code Admission and Anticipated Discharge Date Admission Date: October 10, 2021 Subjective Patient is seen and examined at bedside Remains sedated and Intubated Mildly Tachycardic on monitor On pressors, amiodarone ggt Discussed with Cardiology today Received Vit K today for elevated INR Review of Systems Review of Systems: Unobtainable due to endotracheal tube Physical Exam Physical Exam: Physical Exam: Vitals signs as noted above General Appearance:Moderately built and nourished, no apparent distress, Intubated and sedated Head: normocephalic, Atraumatic Eyes: normal inspection Neck: supple, Trachea midline Respiratory/Chest: Coarse decreased breath sounds, No accessory muscle use Cardiovascular: S1, S2, No murmur, +Tachycardia Abdomen/GI:Soft, Non tender, Bowel sounds present Extremities/Musculoskeletal:normal inspection, Trace edema Neurologic/Psych:Limited exam due to sedation and intubation Skin: normal color, warm Results & Data Results & Data ([facility]) Vital Signs (Past 12 Hours) Vital Signs Temp Pulse Pulse Resp BP BP Pulse Ox 10/13/21 11:59 90 12 91 10/13/21 11:48 92 H 12 90 10/13/21 11:30 37.4 C 97 H 10 L 109/60 87 L 10/13/21 11:00 37.5 C 103 H 9 L 113/63 89 L 10/13/21 10:30 37.5 C 129 H 16 125/81 88 L 10/13/21 10:00 37.4 C 93 H 20 119/57 L 95 10/13/21 09:30 37.5 C 94 H 20 105/50 L 97 10/13/21 09:00 37.6 C H 96 H 20 106/51 L 97 10/13/21 08:30 37.7 C H 96 H 20 103/53 L 97 10/13/21 08:00 37.7 C H 89 20 90/46 L 95 10/13/21 07:50 91 H 20 100 10/13/21 07:30 37.7 C H 91 H 20 99/50 L 99 10/13/21 07:00 37.7 C H 96 H 20 118/62 100 10/13/21 06:30 37.7 C H 91 H 20 97/55 L 99 10/13/21 06:00 37.6 C H 91 H 20 102/54 L 98 10/13/21 05:30 37.6 C H 92 H 20 100/55 L 98 10/13/21 05:09 96 H 20 107/61 97 10/13/21 05:08 37.6 C H 95 H 18 107/65 97 10/13/21 05:01 37.6 C H 88 20 100/58 L 94 10/13/21 04:30 111 H 20 95/58 L 96 10/13/21 04:23 120 H 20 92 10/13/21 04:00 37.1 C 89 20 95/52 L 93 10/13/21 03:30 37.1 C 87 20 92/48 L 93 Laboratory Results Short CBC 10/13/21 Range/Units 05:22 WBC 22.23 H (4.8-10.8) K/uL Hgb 9.9 L (12.0-16.0) g/dL Hct 32.3 L (37-47) % Plt Count 528 H (130-400) K/uL BMP 10/13/21 10/13/21 05:22 06:53 Sodium 133 L Potassium 3.7 Chloride 93 L Carbon Dioxide 33 H BUN 21 Creatinine 0.57 L Glucose 145 H Calcium 8.2 L (1) Respiratory failure Chronicity: acute Respiratory failure complication: hypoxia and hypercapnia Qualified Code(s): J96.01 - Acute respiratory failure with hypoxia; J96.02 - Acute respiratory failure with hypercapnia
[2021-10-14] MEDS: LEVALBUTEROL 1.25MG/0.5ML NEB INH SCH ×4 (00:49→19:40)
[2021-10-14] MEDS: IPRATROPIUM BROMIDE NEB SOLN 0.02% 2.5 ML VIAL INH SCH ×4 (00:49→19:40)
[2021-10-14] MEDS: DEXMEDETOMIDINE HCL 200 MCG in SODIUM CHLORIDE 0.9% 48 ML IV SCH ×4 (03:14→21:27)
[2021-10-14] MEDS: TUBE FEEDING WATER FLUSH OG SCH ×5 (03:15→19:55)
[2021-10-14] MEDS: INSULIN ASPART PER UNIT SC SCH ×5 (03:56→20:02)
[2021-10-14] MEDS: FUROSEMIDE INJ 20 MG/2 ML VIAL IV SCH ×4 (03:56→21:11)
[2021-10-14 05:43] LABS: Basophils # (auto) 0.01 K/uL (0-0.2); Hematocrit (blood only) 30.1 % (37-47); Hemoglobin 9.1 g/dL (12.0-16.0); Immature Granulocytes # (auto) 0.04 K/uL (0.00-0.02); Immature Granulocytes % (auto) 0.2 %; Lymphocytes # (auto) 1.03 K/uL (1.2-3.4); Mean Corpuscular Hemoglobin 24.7 pg (25-34); Mean Corpuscular Hgb Conc 30.2 g/dL (32-36); Mean Corpuscular Volume 81.8 fL (80-100); Mean Platelet Volume 10.1 fL (7.4-10.4); Monocytes # (auto) 1.81 K/uL (0.11-0.59); Monocytes % (auto) 8.9 %; Neutrophils # (auto) 17.55 K/uL (1.4-6.5); Neutrophils % (auto) 85.9 %; Platelet Count 430 K/uL (130-400); RDW Coefficient of Variation 15.7 % (11.5-14.5); Red Blood Count 3.68 M/uL (4.2-5.4); White Blood Count 20.44 K/uL (4.8-10.8)
[2021-10-14 05:55] LABS: INR 1.6 (0.9-1.1); Prothrombin Time 15.5 Seconds (9.0-12.0)
[2021-10-14 06:18] LABS: BUN Creatinine Ratio 51.6 (10-20); Calcium 8.3 mg/dl (8.5-10.1); Est GFR (African American) 97.3 ml/min; Potassium 4.5 mmol/L (3.5-5.1)
[2021-10-14] MEDS: ICU ELECTROLYTE REPLACEMENT PROTOCOL SCH ×2 (06:22→18:09)
[2021-10-14] MEDS: MULTI VIT W/MINERALS LIQUID 15 ML UDP PO SCH (07:35)
[2021-10-14] MEDS: ASPIRIN 81 MG CHEW NG SCH (07:36)
[2021-10-14] MEDS: FAMOTIDINE 20 MG in SYRINGE 3 ML IV SCH ×2 (08:00→19:55)
[2021-10-14] MEDS: methylPREDNISolone 40 MG in SYRINGE 0 ML IV SCH (08:00)
[2021-10-14] MEDS: CEFEPIME 2,000 MG in SYRINGE 0 ML IV SCH ×3 (08:03→19:55)
[2021-10-14] MEDS: DOXYCYCLINE HYCLATE 100 MG in DEXTROSE 5% 100 ML IV SCH ×2 (09:54→21:11)
[2021-10-14] MEDS ORDERED: MoRPHine SULFATE 2 MG/ML CARP IV STA (10:14)
[2021-10-14] MEDS ORDERED: MoRPHine SULFATE 2 MG/ML CARP ONE (10:18)
--- NOTE | 2021-10-14 10:21 | Critical Care Progress Note ---
Date of Service October 14, 2021 Assessment & Plan (1) Admitted to intensive care unit: Plan: Reason Critically Ill: 81-year-old female presenting with acute on chronic hypoxemic respiratory failure in the setting of likely COPD exasperation with associated pulmonary edema and requiring ongoing ventilatory management status post intubation requirement. NEURO - * ICU delirium, but following commands. Wean off precedex. CARDIAC/VASCULAR - * Acute decompensated systolic heart failure as noted on echo. Likely NSTEMI. Cards following. EF <20%. G1DD. * Continue IV diuretic therapy per cardiology. * INR 1.6 today, will need to consider initiation of heparin ggt given AF * Currently on amio infusion RESPIRATORY - * Acute on chronic hypoxemic respiratory failure: * Likely multifactorial in the setting of pulmonary edema w/ COPD exacerbation. * Severe COPD at baseline and is oxygen dependent. Continue IV steroids for COPD exacerbation. * BiPAP as needed * Discussed with patient's daughter who indicated that patient would not want to be reintubated. Daughter is going to discuss with her brother. * Will give a dose of morphine 2 mg IV for air hunger and to offload the heart GI/NUTRITION - * OGT in place. * Prophylaxis: Famotidine * Vitamin K administered 10/13 due to elevated INR RENAL/LYTES - * Replace potassium and magnesium per ICU protocol - * Guan in place - Strict I&Os. ENDO - * Hyperglycemia * BSGs per unit protocol. ISS --> gtt per unit policy. HEME - * Stable H&H * Trend INR in the anticoagulated patient w/ h/o A fib * Vitamin K given. INR now 1.6. ID - * Initially covered w/ antibiotics w/ concerns for pneumonia. * Sputum with Pseudomonas identified which is sensitive to cefepime LINES/IV ACCESS - * PIVs x2 * ETT * OGT * Guan DVT PROPHYLAXIS - * Coumadin on hold * SCDs Prognosis very poor overall. I have personally spent 39 minutes of critical care time in the direct management of this patient. This is a life/limb threatening event. This includes time spent evaluating patient, direct bedside care, chart review, placing orders, interpretation of diagnostic studies, discussion with consultants, patient, and family members, as well as other required patient management activities. This time is exclusive of all separately billable procedures, and teaching time and separate from and in addition to any other critical care service time. Thank you for allowing us to participate in the care of this patient. Please refer to my attending physician's documentation for any further recommendations. (2) Respiratory failure: (3) COPD exacerbation: (4) Pulmonary edema: (5) Hypoxia: (6) Diabetes: (7) Hypertension: (8) CHF (congestive heart failure): (9) COPD (chronic obstructive pulmonary disease): (10) Heart failure, systolic, with acute decompensation: (11) Delirium: Admission and Anticipated Discharge Date Admission Date: October 10, 2021 Subjective Patient self extubated yesterday evening. Remains intermittently confused. Currently on a Precedex infusion which we are weaning down. Tachypneic. Endorses shortness of breath. Not tolerant of BiPAP. Review of Systems Review of Systems: All systems reviewed & are unremarkable except as noted in Subjective Physical Exam Physical Exam: VITAL SIGNS - Vital signs and nursing notes were reviewed. GENERAL - 81-year-old female appearing her stated age who is in moderate dis tress. HEAD - NC/AT. EYES - PERRL with EOMI bilaterally. Sclera anicteric. EARS - No deformities of external structures noted on gross examination bilaterally. NOSE - Midline and without cyanosis. No epistaxis or purulent drainage noted. MOUTH/OROPHARYNX -normal posterior oropharynx. NECK - Neck with FROM. Supple to palpation. LUNGS -diminished lung sounds bilaterally. CARDIAC - RRR with S1/S2. No murmur, rubs, or gallops appreciated. ABDOMEN - Abdominal contour flat without pulsations or visible masses. BS normoactive all four quadrants. No tenderness, palpable masses, hepatosplenomegaly, or ascites noted. EXTREMITIES - No clubbing or peripheral cyanosis. Moderate pretibial edema present. +3/5 radial and dorsalis pedis pulses palpated throughout. NEUROLOGIC -nonfocal. Anxious. Results & Data Results & Data ([facility]) Vital Signs (Past 12 Hours) Vital Signs Temp Pulse Pulse Resp BP Pulse Ox 10/14/21 09:52 87 28 H 93 10/14/21 08:30 78 90 10/14/21 08:00 73 109/64 92 10/14/21 07:46 75 20 92 10/14/21 07:30 36.6 C 74 30 H 92 10/14/21 07:00 72 31 H 100/58 L 95 10/14/21 06:00 77 24 105/60 97 10/14/21 05:30 77 24 96 10/14/21 05:00 75 20 96/61 L 96 10/14/21 04:30 77 23 96 10/14/21 04:15 78 28 H 96 10/14/21 04:00 36.6 C 79 22 100/65 92 10/14/21 03:30 36.8 C 81 24 92 10/14/21 03:00 36.8 C 81 20 89/59 L 95 10/14/21 02:30 36.7 C 78 22 95 10/14/21 02:00 36.7 C 79 17 83/57 L 93 10/14/21 01:30 36.8 C 75 19 93 10/14/21 01:00 36.7 C 88 21 109/76 94 10/14/21 00:30 36.6 C 83 26 H 94 10/14/21 00:15 95 H 23 96 10/14/21 00:00 36.5 C 79 16 103/66 94 10/13/21 23:30 36.6 C 82 21 95 10/13/21 23:07 87 29 H 97 10/13/21 23:00 36.5 C 86 24 137/81 91 10/13/21 22:30 36.7 C 85 20 92 Coding Level of Care Code Critical Care 1st 30-74 mins Diagnoses Admitted to intensive care unit Z78.9 Respiratory failure J96.01; J96.02 Chronicity: acute Respiratory failure complication: hypoxia and hypercapnia COPD exacerbation J44.1 Pulmonary edema J81.0 Chronicity: acute Hypoxia R09.02 Diabetes E11.9 Hypertension I10 CHF (congestive heart failure) I50.9 COPD (chronic obstructive pulmonary disease) J44.9 COPD type: unspecified COPD Heart failure, systolic, with acute decompensation I50.23 Delirium R41.0 Time Spent (min) 39 (1) Respiratory failure Chronicity: acute Respiratory failure complication: hypoxia and hypercapnia Qualified Code(s): J96.01 - Acute respiratory failure with hypoxia; J96.02 - Acute respiratory failure with hypercapnia (2) Pulmonary edema Chronicity: acute Qualified Code(s): J81.0 - Acute pulmonary edema (3) COPD (chronic obstructive pulmonary disease) COPD type: unspecified COPD Qualified Code(s): J44.9 - Chronic obstructive pulmonary disease, unspecified
--- NOTE | 2021-10-14 11:03 | Cardiology Progress Note ---
Date of Service October 14, 2021 Assessment & Plan (1) Heart failure, systolic, with acute decompensation: (2) Atrial flutter with rapid ventricular response: (3) Left bundle branch block: Plan: 81 year old female with longstanding history of severe oxygen dependent COPD, past pAF for which pt is on sotalol and coumadin as outpatient. Newly recognized LBBB observed early August, with LVEF 55% at that time. Presented with 3 days of worsening respiratory status, CXR with profound pulmonary edema on presentation, echo with new severe systolic dysfunction LVEF ~20%, severe decline in LVEF out of proportion to relatively mild troponin elevation, with findings on echocardiogram perhaps compatible with stress induced cardiomyopathy Repeat technically limited focused echocardiogram for wall motion LVEF 10/14/2021, ongoing severe left ventricular systolic dysfunction, ejection fraction in the range of 20 to 25%, bilateral pleural effusions. Oxygen mask, FiO2 40% Norepinephrine: Off, 10/14/2021 Amiodarone 0.5 mg/min Guan catheter 1) Heart failure, systolic, with acute decompensation: -continue furosemide 20 mg IV QID, hyponatremia improving. Low BP prevents beta mamadou, CINDA / ARB at present. (2) Atrial flutter with rapid ventricular response: -Had been in AFib, atrial flutter briefly overnight (10/12-10/13/2021) -10/14/2021, sinus rhythm 70-80 bpm -Continue IV amiodarone -Sotalol on hold favoring IV amiodarone for rhythm control. -INR 6.8, coumadin on 10/13/2021 prompting 1.25 mg of IV vitamin K, 1.6 10/14/2021. -At present, given the patient's restlessness, and risk of bleeding complicati on, I favor holding off on heparin infusion. (3) Left bundle branch block: -as first noted 08/2021. Summary: Continue supportive care, will reassess later today with regards to blood pressure, candidacy for adding low-dose metoprolol. Admission and Anticipated Discharge Date Admission Date: October 10, 2021 Gutierrez Rodriguez is seen in cardiology follow-up of multifactorial respiratory failure, new onset acute systolic heart failure, new onset severe left ventricular systolic dysfunction. Last evening, 10/13/2021, patient self extubated, coughing out her endotracheal tube. She has been on high flow oxygen via oxygen mask in the meantime. Blood pressure has trended up, and she is no longer requiring norepinephrine. She is on multidose sedation with Dexmedetomidine 1 mg/kg/h. Telemetry reveals sinus rhythm in the 70s to 80s. Review of Systems Review of Systems: Unobtainable due to reduced consciousness Physical Exam Constitutional: + ill appearing Respiratory: Auscultation: + diminished lung sounds (Decreased breath sounds at the bases) Gastrointestinal (Abdomen): normal bowel sounds, soft, nontender, no hepatosplenomegaly Neurologic: Agitated, moving all 4 extremities Results & Data ([facility]) Vital Signs (Past 12 Hours) Vital Signs Temp Pulse Pulse Resp BP Pulse Ox 10/14/21 09:52 87 28 H 93 10/14/21 08:30 78 90 10/14/21 08:00 73 109/64 92 10/14/21 07:46 75 20 92 10/14/21 07:30 36.6 C 74 30 H 92 10/14/21 07:00 72 31 H 100/58 L 95 10/14/21 06:00 77 24 105/60 97 10/14/21 05:30 77 24 96 10/14/21 05:00 75 20 96/61 L 96 10/14/21 04:30 77 23 96 10/14/21 04:15 78 28 H 96 10/14/21 04:00 36.6 C 79 22 100/65 92 10/14/21 03:30 36.8 C 81 24 92 10/14/21 03:00 36.8 C 81 20 89/59 L 95 10/14/21 02:30 36.7 C 78 22 95 10/14/21 02:00 36.7 C 79 17 83/57 L 93 10/14/21 01:30 36.8 C 75 19 93 10/14/21 01:00 36.7 C 88 21 109/76 94 10/14/21 00:30 36.6 C 83 26 H 94 10/14/21 00:15 95 H 23 96 10/14/21 00:00 36.5 C 79 16 103/66 94 10/13/21 23:30 36.6 C 82 21 95 10/13/21 23:07 87 29 H 97 10/13/21 23:00 36.5 C 86 24 137/81 91
--- NOTE | 2021-10-14 11:38 | Pharmacy Report ---
Pharmacy Glycemic Short Note 2 - Date of Service October 14, 2021 - Glycemic Short BSG Results (Last 24 hours): 10/13/21 10/13/21 10/13/21 12:10 16:06 19:59 Glucose POC Glucose 164 H 239 H 212 H 10/13/21 10/14/21 10/14/21 23:48 03:53 05:26 Glucose 106 H POC Glucose 161 H 111 H 10/14/21 07:49 Glucose POC Glucose 129 H OUTPATIENT ANTIDIABETIC REGIMEN: * Lantus 12 units daily * Metformin 1gm PO BID ASSESSMENT: 10/14/21 * Patient's BSGs yesterday were [phone] and overnight were 161-111 mg/dL. Fasting today is 106 mg/dL. * Patient received 45 units of insulin yesterday (10 units of basal and 35 units of bolus). * Patient self-extubated yesterday so tube feeds stopped. * Will hold Lantus at this time. Patient may require small amount tomorrow but hesitant to start right now since patient NPO. * Will pursue tighter Novolog coverage right now to prevent significant hyperglycemia with steroids. 10/13 * Patient's BSGs yesterday were [phone] and overnight were 220-203 mg/dL. "Fasting" this morning was 76 mg/dL. * Decrease Lantus to 5 units BID- patient continues on Levophed at 0.07 mcg/kg/min plus Solu-Medrol 40 mg IV daily so prefer to utilize bolus insulin to control BSGs. * Tighten CR since basal decreased. 10/12: * Insulin drip weaned off this AM given low rate (0.8unit/hr) after receiving 15 units of Lantus in addition yesterday. Remains intubated, sedated and on norepi (0.09mcg/kg/min). Abx & steroids continue. Peptamen tube feeds being titrated. * Transitioned to subcut Lantus 10 units BID (wt/stress 2) with Novolog q4h scale that was tightened this afternoon given rising BSG at lunch. 10/11 * Patient presents with acute on chronic hypoxemic respiratory failure. Patient is critically ill, intubated and sedated. History of DM2. Initiated on insulin infusion per ICU protocol (BSG on admission - 332mg/dL). Pharmacy consulted to assist with glycemic management and drip transition. * Insulin drip initiated ~ midnight last night, with an average rate of 2.3 units/hr. BSGs down trending and within goal ~ 0600 this AM. * NPO --> Peptamen @ trickle this afternoon, receiving 40mg daily Solu Medrol, antibiotics, and pressors. Given high acuity and multiple variable stressors, plan to give 10 units Lantus X 1 now (Wt/stress 2). Will allow insulin infusion to continue to run for today (OK if weans itself off). HS Lantus scale depending on insulin drip rate. If drip is running <1 unit/hr, contact pharmacy to discontinue. * Novolog scale for carb coverage of tube feeds. PLAN FOR INPATIENT GLYCEMIC CONTROL: * Hold outpatient oral diabetes medications * Basal insulin * Lantus - hold since self-extubated * Bolus insulin * NovoLog per scale q4h * Goal Range: Low 110mg/dL - High 140 mg/dL * Nutritional / Prandial insulin per carb ratio of 1 unit per 4 grams CHO consumed * Correction: 1 unit per 15 mg/dL > 140 PLAN FOR DISCHARGE: * TBD
[2021-10-14] MEDS: AMIODARONE / D5W 360 MG/200 ML BAG IV SCH (11:55)
[2021-10-14] MEDS: INSULIN GLARGINE SOLOSTAR 100 UNITS/ML 3 ML PEN SC SCH (15:12)
--- NOTE | 2021-10-14 16:07 | Hospitalist Progress Note ---
Date of Service October 14, 2021 Assessment & Plan (1) Respiratory failure: Plan: Acute on chronic respiratory failure Likely multifactorial: CHF, COPD exacerbation, pulmonary hypertension Primary Respiratory acidosis Possible B/L Pneumonia Normal Procalcitonin Cardiogenic/Septic Shock --CXR:Interval development of the pulmonary edema and small bilateral pleural effusions. Bibasilar densities are nonspecific but could be due to atelectasis from the pleural effusions or a pneumonia. 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 Bibasilar densities are nonspecific but could be due to atelectasis from the pleural effusions or a pneumonia. -ECHO: Mild concentric LVH. Septal wall motion is abnormal consistent with LBBB. Left ventricle apex is akinetic. Diffuse hypokinesis to akinesis with minimal sparing of basal segments. EF< 20%. Moderate to severe pulmonary hypertension. Grade 1 diastolic dysfunction. -INR supratherapeutic May need IV heparin bridge if INR less than 2 Appreciate cardiology input Lisinopril, HCTZ, amlodipine, sotalol held due to hypotension continue IV lasix 20 mg every 6 hours as tolerated Monitor volume status Very high risk for cardiac catheterization as per cardiology. Poor prognosis Consider Metoprolol if BP tolerates Acute metabolic encephalopathy Secondary to above -CT Head:No acute intracranial hemorrhage, no evidence of acute territorial infarction or other acute intracranial disease process Mental status improved SVT Paroxysmal atrial fibrillation INR supratherapeutic Home medications held secondary to hypotension Monitor INR:3.7>5.4>6.8 >1.6 Continue amiodarone drip Received a dose of Vit K Hold IV heparin for today given restlessness/risk for bleeding Hyponatremia on HCTZ at home Sodium level 133 Monitor DM II Last HbA1C: 8.0 Continue insulin Monitor BGs Breast cancer S/P surgery/radiation DVT Px: INR subtherapeutic today Code Status DNI/DNR as per my discussion with patient/family Admission and Anticipated Discharge Date Admission Date: October 10, 2021 Subjective Patient is seen and examined at bedside Self extubated yesterday Currently on Oxymask States having shortness of breath Off pressors Currently on amiodarone ggt Discussed with Cardiology/Critical Care today Discussed with patient's daughter Review of Systems Review of Systems: All systems reviewed & are unremarkable except as noted in Subjective Physical Exam Physical Exam: Physical Exam: Vitals signs as noted above General Appearance:Moderately built and nourished, mild respiratory distress Head: normocephalic, Atraumatic Eyes: normal inspection Neck: supple, Trachea midline Respiratory/Chest: Coarse decreased breath sounds, No accessory muscle use Cardiovascular: S1, S2, No murmur, +Tachycardia Abdomen/GI:Soft, Non tender, Bowel sounds present Extremities/Musculoskeletal:normal inspection, Trace edema Neurologic/Psych:Alert, awake, grossly no focal deficits Skin: normal color, warm Results & Data Results & Data ([facility]) Vital Signs (Past 12 Hours) Vital Signs Temp Pulse Pulse Resp BP Pulse Ox 10/14/21 14:30 87 31 H 94 10/14/21 14:00 89 26 H 93 10/14/21 13:30 85 25 H 90 10/14/21 13:00 83 21 92 10/14/21 12:43 83 18 95 10/14/21 12:30 82 25 H 95 10/14/21 12:07 36.7 C 10/14/21 12:00 80 27 H 94 10/14/21 11:57 78 25 H 106/61 94 10/14/21 11:30 84 20 92 10/14/21 11:00 77 30 H 96 10/14/21 10:30 83 29 H 92 10/14/21 10:00 80 17 128/83 94 10/14/21 09:52 87 28 H 93 10/14/21 09:30 78 28 H 91 10/14/21 09:01 113/59 L 92 10/14/21 09:00 93 10/14/21 08:30 78 90 10/14/21 08:00 73 109/64 92 10/14/21 07:46 75 20 92 10/14/21 07:30 36.6 C 74 30 H 92 10/14/21 07:00 72 31 H 100/58 L 95 10/14/21 06:00 77 24 105/60 97 10/14/21 05:30 77 24 96 10/14/21 05:00 75 20 96/61 L 96 10/14/21 04:30 77 23 96 10/14/21 04:15 78 28 H 96 10/14/21 04:00 36.6 C 79 22 100/65 92 Laboratory Results Short CBC 10/14/21 Range/Units 05:26 WBC 20.44 H (4.8-10.8) K/uL Hgb 9.1 L (12.0-16.0) g/dL Hct 30.1 L (37-47) % Plt Count 430 H (130-400) K/uL BMP 10/14/21 05:26 Sodium 133 L Potassium 4.5 D Chloride 92 L Carbon Dioxide 36 H BUN 32 H Creatinine 0.62 Glucose 106 H Calcium 8.3 L (1) Respiratory failure Chronicity: acute Respiratory failure complication: hypoxia and hypercapnia Qualified Code(s): J96.01 - Acute respiratory failure with hypoxia; J96.02 - Acute respiratory failure with hypercapnia
[2021-10-14] MEDS: MoRPHine SULFATE 2 MG/ML CARP IV PRN ×4 (16:23→21:57)
[2021-10-14] MEDS ORDERED: CEFEPIME 2,000 MG in SYRINGE 0 ML IV SCH (20:00)
[2021-10-15] MEDS: MoRPHine SULFATE 2 MG/ML CARP IV PRN ×5 (00:01→07:57)
[2021-10-15] MEDS: TUBE FEEDING WATER FLUSH OG SCH ×6 (00:01→21:46)
[2021-10-15] MEDS: INSULIN ASPART PER UNIT SC SCH ×6 (00:01→21:46)
[2021-10-15] MEDS: AMIODARONE / D5W 360 MG/200 ML BAG IV SCH ×3 (00:19→21:47)
[2021-10-15] MEDS: LEVALBUTEROL 1.25MG/0.5ML NEB INH SCH ×4 (00:47→21:47)
[2021-10-15] MEDS: IPRATROPIUM BROMIDE NEB SOLN 0.02% 2.5 ML VIAL INH SCH ×4 (00:47→21:47)
[2021-10-15] MEDS: FUROSEMIDE INJ 20 MG/2 ML VIAL IV SCH ×2 (03:51→11:59)
[2021-10-15 05:05] LABS: Hematocrit (blood only) 32.6 % (37-47); Hemoglobin 10.2 g/dL (12.0-16.0); Mean Corpuscular Hgb Conc 31.3 g/dL (32-36); Mean Corpuscular Volume 79.9 fL (80-100); Mean Platelet Volume 10.4 fL (7.4-10.4); Nucleated RBC # (auto) 0.06 K/uL (0-0); Nucleated RBC % (auto) 0.3 %; Platelet Count 544 K/uL (130-400); RDW Coefficient of Variation 15.9 % (11.5-14.5); RDW Standard Deviation 46.4 fL (36.4-46.3); Red Blood Count 4.08 M/uL (4.2-5.4); White Blood Count 23.13 K/uL (4.8-10.8)
[2021-10-15 05:12] LABS: INR 1.7 (0.9-1.1); Prothrombin Time 16.4 Seconds (9.0-12.0)
[2021-10-15 05:52] LABS: Potassium 3.4 mmol/L (3.5-5.1)
[2021-10-15 05:53] LABS: BUN Creatinine Ratio 63.2 (10-20); Calcium 8.9 mg/dl (8.5-10.1); Creatinine Clr Calc Pharmacy 35.8 ml/min; Est GFR (African American) 94.4 ml/min; Est GFR (Non-African American) 81.5 ml/min; Magnesium 1.9 mg/dl (1.7-2.4)
[2021-10-15] MEDS: DEXMEDETOMIDINE HCL 200 MCG in SODIUM CHLORIDE 0.9% 48 ML IV SCH (05:59)
[2021-10-15] MEDS: ICU ELECTROLYTE REPLACEMENT PROTOCOL SCH (05:59)
[2021-10-15] MEDS: INSULIN GLARGINE SOLOSTAR 100 UNITS/ML 3 ML PEN SC SCH ×2 (07:29→08:00)
[2021-10-15] MEDS: methylPREDNISolone 40 MG in SYRINGE 0 ML IV SCH (07:57)
[2021-10-15] MEDS: CEFEPIME 2,000 MG in SYRINGE 0 ML IV SCH (07:57)
[2021-10-15] MEDS: FAMOTIDINE 20 MG in SYRINGE 3 ML IV SCH (07:57)
[2021-10-15] MEDS: MULTI VIT W/MINERALS LIQUID 15 ML UDP PO SCH (08:07)
[2021-10-15] MEDS: ASPIRIN 81 MG CHEW NG SCH (08:07)
--- NOTE | 2021-10-15 08:19 | Pulmonology Progress Note ---
Date of Service October 15, 2021 Assessment & Plan (1) Heart failure, systolic, with acute decompensation: (2) Atrial flutter with rapid ventricular response: (3) Respiratory failure: Chronicity: acute Respiratory failure complication: hypoxia and hypercapnia Qualified Code(s): J96.01 - Acute respiratory failure with hypoxia; J96.02 - Acute respiratory failure with hypercapnia (4) COPD exacerbation: Plan: Impression: 81-year-old female with severe obstructive lung disease and chronic hypoxemic respiratory failure admitted with respiratory failure as well as atrial fibrillation with rapid ventricular response. She has 2 Pseudomonas species from her sputum. Recommendations: 1. COPD: Add Perforomist and budesonide to regiment. Continue steroids. She does not appear bronchospastic this morning but is in respiratory distress and tachypneic. Do not think additional blood gas at this point time would be beneficial as the patient is DO NOT INTUBATE DO NOT RESUSCITATE. Continue low- dose morphine as needed for respiratory distress 2. Hypoxemic hypercarbic respiratory failure: Continue BiPAP for now. Will repeat chest x-ray. Continue diuresis. She is on amiodarone. Per cardiology. Recheck BMP 3. Pseudomonas bronchiectasis: We do not have a recent CT the chest in our system however I doubt it would change control coordinator at this point in time. The Pseudomonas may be chronic colonization. Could consider inhaled tobramycin or colistin however we will see how she responds to the above interventions. Procalcitonin on presentation was negative. We will recheck 4. Patient overall status is guarded. DNR/DNI status confirmed. We will see how she responds to the above interventions but transition to full palliative care may be appropriate depending on clinical response. Admission and Anticipated Discharge Date Admission Date: October 10, 2021 Subjective Patient seen and examined. EMR reviewed. Discussed with off going pulmonary critical care provider. The patient is sitting upright in bed on noninvasive positive pressure ventilation this morning. She is tachypneic. She states the BiPAP is not particularly effective in improving her breathing. Review of Systems Review of Systems: Unable to obtain due to full face BiPAP and respiratory distress Physical Exam Constitutional: WD/WN, vitals as above Neck: trachea midline, no thyromegaly Respiratory: + respiratory distress, + labored breathing and + tachypneic Auscultation: no crackles and no wheezes Cardiovascular: RRR, no murmur, no edema Gastrointestinal (Abdomen): normal bowel sounds, soft, nontender, no hepatosplenomegaly Musculoskeletal: Extremities: extremities normal to inspection Skin: no rashes, warm and dry Neurologic: Nonfocal exam Lymphatic: no cervical lymphadenopathy Results & Data Results & Data ([facility]) Vital Signs (Past 12 Hours) Vital Signs Temp Pulse Pulse Resp BP Pulse Ox 10/15/21 08:00 36.6 C 100 H 38 H 140/69 97 10/15/21 07:11 103 H 106 H 28 H 96 10/15/21 04:00 36.7 C 106 H 26 H 131/79 97 10/15/21 03:49 108 H 29 H 94 10/15/21 00:47 105 H 28 H 95 10/15/21 00:00 36.8 C 105 H 26 H 131/67 97 Critical Care Results & Data Vital Signs (Past 12 Hours) Vital Signs Temp Pulse Pulse Resp BP Pulse Ox 10/15/21 08:00 36.6 C 100 H 38 H 140/69 97 10/15/21 07:11 103 H 106 H 28 H 96 10/15/21 04:00 36.7 C 106 H 26 H 131/79 97 10/15/21 03:49 108 H 29 H 94 10/15/21 00:47 105 H 28 H 95 10/15/21 00:00 36.8 C 105 H 26 H 131/67 97 Lab & Micro Results (Past 24 Hours) RBC 4.08 M/uL (4.2-5.4) L 10/15/21 WBC 23.13 K/uL (4.8-10.8) H 10/15/21 Hgb 10.2 g/dL (12.0-16.0) L 10/15/21 Hct 32.6 % (37-47) L 10/15/21 MCV 79.9 fL (80-100) L 10/15/21 MCH 25.0 pg (25-34) 10/15/21 MCHC 31.3 g/dL (32-36) L 10/15/21 RDW Standard Deviation 46.4 fL (36.4-46.3) H 10/15/21 RDW Coefficient of Variation 15.9 % (11.5-14.5) H 10/15/21 Plt Count 544 K/uL (130-400) H 10/15/21 MPV 10.4 fL (7.4-10.4) 10/15/21 Nucleated Red Blood Cells % (auto) 0.3 % 10/15/21 Nucleated RBC Absolute Count (auto) 0.06 K/uL (0-0) H 10/15/21 Na 135 mmol/L (136-145) L 10/15/21 K 3.4 mmol/L (3.5-5.1) L 10/15/21 Cl 92 mmol/L (98-107) L 10/15/21 CO2 33 mmol/L (21-32) H 10/15/21 Anion Gap 10 (3-11) 10/15/21 BUN 43 mg/dl (6-23) H 10/15/21 Creatinine 0.68 mg/dl (0.6-1.2) 10/15/21 Estimated GFR ( Amer) 94.4 ml/min 10/15/21 Estimated GFR (Non-Af Amer) 81.5 ml/min 10/15/21 BUN/Creatinine Ratio 63.2 (10-20) H 10/15/21 Glu 103 mg/dl (70-99(Fasting)) H 10/15/21 Ca 8.9 mg/dl (8.5-10.1) 10/15/21 Phosphorus Level 3.0 mg/dl (2.5-4.9) 10/15/21 Mg 1.9 mg/dl (1.7-2.4) 10/15/21 04:14 10/15/21 Calcium Level 8.9 mg/dl (8.5-10.1) 10/15/21 04:14 10/15/21 Prothromb Time International Ratio 1.7 (0.9-1.1) H 10/15/21 04:14 10/15/21 I & O Totals 24 Hours 10/14/21 10/15/21 10/16/21 06:59 06:59 06:59 Intake Total 1856.345 / 2661.425 0657.526 / 1343.526 Output Total 1050 / 1050 1075 / 1075 Balance 806.345 / 806.345 268.526 / 268.526 Cumulative 10/10/21 19:31 thru 10/15/21 06:30 Intake Total 9219.552 Output Total 7900 Balance 1319.552 RT Ventilator Mngmt (Last Documented) Ventilator Ordered Settings Ventilator Support Mode CPAP 10/13/21 15:44 Respiratory Rate 38 10/15/21 08:00 Ventilator Tidal Volume 320 10/13/21 08:00 Setting Minute Ventilation 5.4 10/13/21 15:44 Ventilator Positive Pressure 5 10/13/21 15:44 Support Setting Positive End Expiratory 5 10/13/21 15:44 Pressure Fraction of Inspired Oxygen 40 10/15/21 08:00 Machine Comment weaned to 40% 10/13/21 07:50 Ventilator - PT Measurements Respiratory Rate 38 Exhaled Tidal Volume 432 Minute Ventilation 5.4 Peak Inspiratory Airway 11 Pressure Plateau Pressure 15 Respiratory Cycle Inspiratory: 1:2.8 Expiratory Ratio Inspiratory Phase Time 0.80 End-Tidal CO2 41 Static Lung Compliance 32.00 Dynamic Lung Compliance 72.00 Normal Static Lung Compliance 49.00 Patient Measurements Comment FiO2 increased to 45% based off ABG results. PG Care Time/CCT Total # of Minutes Spent Total Time Spent with Patient: Total time spent is greater than 50% in coordination of care (as documented) at patient's floor/unit and/or counseling patient: Coding Level of Care Code 73167 Subseq Hosp Care Lvl 3 Diagnoses Heart failure, systolic, with acute decompensation I50.23 Atrial flutter with rapid ventricular response I48.92 Respiratory failure J96.01; J96.02 Chronicity: acute Respiratory failure complication: hypoxia and hypercapnia COPD exacerbation J44.1 Time Spent (min) 40
--- NOTE | 2021-10-15 08:54 | Hospitalist Progress Note ---
Date of Service October 15, 2021 Assessment & Plan (1) Respiratory failure: Plan: Acute on chronic respiratory failure Likely multifactorial: acute systolic CHF and COPD exacerbation Possible B/L Pneumonia Cardiogenic Shock -Baseline severe COPD and oxygen dependence. Current smoker -TTE 10/14 shows new reduced EF <205% compared to 55% previously. Appreciate Cardiology input, severely reduced EF out of proportion to troponin, may re present stress induced Cardiomyopathy -continue IV lasix per Cardiology -Currently empirically on Cefepime for positive pseudomonas culture. Procalcitonin noted to be negative -Patient self extubated 10/13/20. Code status changed to DNR/DNI after discussing with family and patient . Continue with BIPAP support. But overall poor prognosis -Continue with nebulizer, IV steroids -Repeat CXR pending Acute systolic heart failure Bilateral Pleural effusion H/O Left bundle branch block Likely stress induced Cardiomyopathy Troponin:0.15>9.37>8.15 -CXR: Interval development of the pulmonary edema and small bilateral pleural effusions. Bibasilar densities are nonspecific but could be due to atelectasis from the pleural effusions or a pneumonia. -ECHO: Mild concentric LVH. Septal wall motion is abnormal consistent with LBBB. Left ventricle apex is akinetic. Diffuse hypokinesis to akinesis with minimal sparing of basal segments. EF< 20%. Moderate to severe pulmonary hypertension. Grade 1 diastolic dysfunction. -continue IV lasix 20 mg every 6 hours as tolerated -Monitor volume status -Very high risk for cardiac catheterization as per cardiology. -Appreciate Cardiology input Acute metabolic encephalopathy Secondary to above -CT Head:No acute intracranial hemorrhage, no evidence of acute territorial infarction or other acute intracranial disease process Mental status improved SVT Paroxysmal atrial fibrillation INR supratherapeutic Monitor INR:3.7>5.4>6.8 >1.6. After dose of vitamin K. Previously on Sotalol which is currently being held. Amiodarone drip per Cardiology IV heparin held due to restlessness and increased risk for bleeding Hyponatremia on HCTZ at home Sodium level 133 Monitor DM II Last HbA1C: 8.0 Continue insulin Monitor BGs Breast cancer S/P surgery/radiation DVT Px: INR subtherapeutic today. If no plans for heparin drip, will start SQ heparin for DVT ppx Code Status DNI/DNR as per my discussion with patient/family Attempted to call daughter to discuss care plan, no answer. Will try again later Admission and Anticipated Discharge Date Admission Date: October 10, 2021 Subjective After lengthy discussion yesterday by critical care team with daughter and patient, family have requested her code status be changed to DNR/DNI. Patient remains on BIPAP with increased work of breathing. She received IV morphine this morning but still appears to have air hunger Remains on A fib with HR low 100s while on amiodarone drip Patient unable to provide meaningful ROS Physical Exam Physical Exam: Appears in respiratory distress. Tripoding Respiratory: rapid, shallow breathing, no audible wheezing/rhonchi Diminished at bases Cardiovascular: irregular and rapid, HR 105 on telemetry, no audible murmurs/rubs Gastrointestinal (Abdomen): soft, non tender Musculoskeletal: no edema Neurologic: awake, restless, spontaneously moving extremities Psychiatric: appears anxious Results & Data Results & Data ([facility]) Vital Signs (Past 12 Hours) Vital Signs Temp Pulse Pulse Resp BP Pulse Ox 10/15/21 08:00 36.6 C 100 H 38 H 140/69 97 10/15/21 07:11 103 H 106 H 28 H 96 10/15/21 04:00 36.7 C 106 H 26 H 131/79 97 10/15/21 03:49 108 H 29 H 94 10/15/21 00:47 105 H 28 H 95 10/15/21 00:00 36.8 C 105 H 26 H 131/67 97 Laboratory Results Short CBC 10/15/21 Range/Units 04:14 WBC 23.13 H (4.8-10.8) K/uL Hgb 10.2 L (12.0-16.0) g/dL Hct 32.6 L (37-47) % Plt Count 544 H (130-400) K/uL BMP 10/15/21 04:14 Sodium 135 L Potassium 3.4 L D Chloride 92 L Carbon Dioxide 33 H BUN 43 H Creatinine 0.68 Glucose 103 H Calcium 8.9 Medications Administered Current Inpatient Medications Aspirin (Aspirin 81 Mg Chew) 81 mg NG DAILY JOHN Stop: 11/10/21 08:59 Last Admin: 10/15/21 08:07 Dose: Not Given Documented by: Budesonide (Budesonide 0.5 Mg/2 Ml Vial (Pulmicort)) 0.5 mg NEB BIDR JOHN Stop: 11/14/21 18:59 Dextrose (Dextrose 50% 50 Ml Syringe) 25 - 50 ml IV UD PRN; Protocol PRN Reason: Hypoglycemia Protocol Stop: 11/10/21 00:29 Enteral Nutritional Formula (Peptamen 1.5 Isai 1,000 Ml Bag) 1,000 ml OG UD [facility]; Protocol Stop: 11/10/21 11:29 Last Admin: 10/11/21 12:02 Dose: 1,000 ml Documented by: Formoterol Fumarate (Formoterol 20 Mcg/2 Ml Vial) 20 mcg NEB BID [facility] Stop: 11/14/21 08:59 Furosemide (Furosemide Inj 20 Mg/2 Ml Vial) 20 mg IV Q6H JOHN Stop: 11/10/21 09:59 Last Admin: 10/15/21 03:51 Dose: 20 mg Documented by: Glucagon (Glucagon For Inj 1 Mg Vial) 1 mg IM UD PRN; Protocol PRN Reason: Hypoglycemia Protocol Stop: 11/10/21 00:29 Glucose (Glucose 40% Gel 15 Gm Tube) 15 - 30 gm PO UD PRN; Protocol PRN Reason: Hypoglycemia Protocol Stop: 11/10/21 00:29 Glucose (Glucose 10 Tabs/Tube) 4 - 8 tabs PO UD PRN; Protocol PRN Reason: Hypoglycemia Protocol Stop: 11/10/21 00:29 Methylprednisolone 40 mg/ (Syringe) 0.64 mls @ 1.5 mls/min IV DAILY [facility] Stop: 11/10/21 08:59 Last Admin: 10/15/21 07:57 Dose: 1.5 mls/min Documented by: Famotidine 20 mg/ Syringe 5 mls @ 2.5 mls/min IV BID [facility] Stop: 11/10/21 08:59 Last Admin: 10/15/21 07:57 Dose: 2.5 mls/min Documented by: Amiodarone HCl/Dextrose (Nexterone / D5w) 360 mg in 200 mls @ 16.667 mls/hr IV .Q12H [facility] Stop: 11/11/21 19:59 Last Admin: 10/15/21 00:19 Dose: 0.5 mg/min, 16.7 mls/hr Documented by: Dexmedetomidine HCl 200 mcg/ (Sodium Chloride) 50 mls @ 2.783 mls/hr IV .[id number] [facility]; Protocol Stop: 10/17/21 10:29 Last Admin: 10/15/21 05:59 Dose: Not Given Documented by: Cefepime HCl 2,000 mg/ Syringe 20 mls @ 5 mls/min IV Q12 [facility]; Protocol Stop: 10/18/21 08:59 Last Admin: 10/15/21 07:57 Dose: 5 mls/min Documented by: Insulin Aspart (Insulin Aspart Per Unit) 0 units SC Q4 [facility] Stop: 11/11/21 07:59 Last Admin: 10/15/21 07:56 Dose: Not Given Documented by: Insulin Glargine (Insulin Glargine Solostar 100 Units/Ml 3 Ml Pen) 5 units SC DAILY [facility] Stop: 11/13/21 12:29 Last Admin: 10/15/21 08:00 Dose: 5 units Documented by: Ipratropium [place] (Ipratropium [place] Neb Soln 0.02% 2.5 Ml Vial) 0.5 mg INH Q6R [facility] Stop: 11/10/21 00:59 Last Admin: 10/15/21 07:10 Dose: 0.5 mg Documented by: Levalbuterol HCl (Levalbuterol 1.25mg/0.5ml Neb) 1.25 mg INH Q6R [facility] Stop: 11/10/21 00:59 Last Admin: 10/15/21 07:10 Dose: 1.25 mg Documented by: Miscellaneous (Carbohydrates For Hypoglycemia ) 15 - 30 gm PO PRN PRN PRN Reason: Hypoglycemia Treatment Stop: 11/10/21 00:29 Miscellaneous (Icu Electrolyte Replacement Protocol) 1 ea N/A BID@06,18 [facility]; Protocol Stop: 10/18/21 17:59 Last Admin: 10/15/21 05:59 Dose: Not Given Documented by: Miscellaneous Information (Pharmacy Glycemic Mgmt Consult) 1 ea N/A UD PRN PRN Reason: Consult Stop: 11/10/21 11:07 Morphine Sulfate (Morphine Sulfate 2 Mg/Ml Carp) 2 mg IV Q2H PRN PRN Reason: Pain Stop: 10/28/21 11:54 Last Admin: 10/15/21 07:57 Dose: 2 mg Documented by: Multivitamins/Minerals (Multi Vit W/Minerals Liquid 15 Ml Udp) 15 ml PO QAM [facility] Stop: 11/11/21 08:59 Last Admin: 10/15/21 08:07 Dose: Not Given Documented by: Sterile Water (Tube Feeding Water Flush) 30 ml OG Q4H JOHN Stop: 11/10/21 11:59 Last Admin: 10/15/21 07:37 Dose: Not Given Documented by: (1) Respiratory failure Chronicity: acute Respiratory failure complication: hypoxia and hypercapnia Qualified Code(s): J96.01 - Acute respiratory failure with hypoxia; J96.02 - Acute respiratory failure with hypercapnia
[2021-10-15] MEDS ORDERED: FORMOTEROL 20 MCG/2 ML VIAL NEB SCH ×2 (09:00→19:00)
--- NOTE | 2021-10-15 09:17 | XRay Report ---
XR chest 1V portable CLINICAL HISTORY: resp failure TECHNIQUE: Single frontal radiograph of the chest was obtained. Comparison: Comparison is made to chest one view 10/13/2021 FINDINGS: No lines and tubes are seen. The cardiomediastinal silhouette is normal. Bilateral lower lung predomi nant airspace opacities are seen. Prominence of the pulmonary vasculature is seen. Small bilateral pl eural effusions are seen. IMPRESSION: 1. Small bilateral pleural effusions are seen. Bilateral airspace opacities likely represent atelect asis with or without superimposed aspiration/pneumonia. 2. Mild pulmonary edema. ACT 112: Negative or not required by law. Electronically signed by: Rito George M.D. 10/15/2021 9:16 AM
[2021-10-15] MEDS ORDERED: FUROSEMIDE 40 MG/4 ML VIAL IV ONE (09:54)
--- NOTE | 2021-10-15 10:01 | Cardiology Progress Note ---
Date of Service October 15, 2021 Assessment & Plan (1) Heart failure, systolic, with acute decompensation: (2) Atrial flutter with rapid ventricular response: (3) Left bundle branch block: Plan: 81 year old female with longstanding history of severe oxygen dependent COPD, past pAF for which pt is on sotalol and coumadin as outpatient. Newly recognized LBBB observed early August, with LVEF 55% at that time. Presented with 3 days of worsening respiratory status, CXR with profound pulmonary edema on presentation, echo with new severe systolic dysfunction LVEF ~20%, severe decline in LVEF out of proportion to relatively mild troponin elevation, with findings on echocardiogram perhaps compatible with stress induced cardiomyopathy or ischemia / infarction. Repeat technically limited focused echocardiogram for wall motion LVEF 10/14/2021, ongoing severe left ventricular systolic dysfunction, ejection fraction in the range of 20 to 25%, bilateral pleural effusions. BiPap FiO2 40% Norepinephrine: Off, 10/14/2021 Amiodarone 0.5 mg/min Guan catheter 1) Heart failure, systolic, with acute decompensation: -Increase furosemide to 40 mg IV BID. -Supplement K IV. Low BP prevents beta mamadou, CINDA / ARB at present. (2) Atrial flutter with rapid ventricular response: -Had been in AFib, atrial flutter briefly overnight (10/12-10/13/2021) -10/14/2021, sinus rhythm 70-80 bpm -10/15/21, sinus tachycardia 108 bpm -Continue IV amiodarone -Sotalol on hold favoring IV amiodarone for rhythm control. -INR 6.8, coumadin on 10/13/2021 prompting 1.25 mg of IV vitamin K, 1.6 10/14/2021. INR 10/15/21: 1.7 -At present, given the patient's restlessness, and risk of bleeding complication, I favor holding off on heparin infusion. (3) Left bundle branch block: -as first noted 08/2021. Summary: Continue supportive care. Prognosis poor. Admission and Anticipated Discharge Date Admission Date: October 10, 2021 Subjective Ms Rodriguez is seen in cardiology follow up. She is sitting upright, leaning forward on BiPap with severe tachypnea, unrelieved with morphine. Review of Systems Review of Systems: acutely ill in appearance Physical Exam Constitutional: + ill appearing Respiratory: Auscultation: + diminished lung sounds (Decreased breath sounds at the bases) Cardiovascular: Rate/Rhythm: regular rate and regular rhythm Heart Sounds: no murmur Extremities: no edema Gastrointestinal (Abdomen): normal bowel sounds, soft, nontender, no hepatosplenomegaly Neurologic: moves all 4 extremities Results & Data ([facility]) Vital Signs (Past 12 Hours) Vital Signs Temp Pulse Pulse Resp BP Pulse Ox 10/15/21 08:00 36.6 C 100 H 38 H 140/69 97 10/15/21 07:11 103 H 106 H 28 H 96 10/15/21 04:00 36.7 C 106 H 26 H 131/79 97 10/15/21 03:49 108 H 29 H 94 10/15/21 00:47 105 H 28 H 95 10/15/21 00:00 36.8 C 105 H 26 H 131/67 97 Laboratory Results Coagulation 10/15/21 Range/Units 04:14 PT 16.4 H (9.0-12.0) Seconds CBC 10/15/21 Range/Units 04:14 WBC 23.13 H (4.8-10.8) K/uL RBC 4.08 L (4.2-5.4) M/uL Hgb 10.2 L (12.0-16.0) g/dL Hct 32.6 L (37-47) % Plt Count 544 H (130-400) K/uL Comprehensive Metabolic Panel 10/15/21 Range/Units 04:14 Sodium 135 L (136-145) mmol/L Potassium 3.4 L D (3.5-5.1) mmol/L Chloride 92 L (98-107) mmol/L Carbon Dioxide 33 H (21-32) mmol/L BUN 43 H (6-23) mg/dl Creatinine 0.68 (0.6-1.2) mg/dl Glucose 103 H (70-99(Fasting)) mg/dl Calcium 8.9 (8.5-10.1) mg/dl
--- NOTE | 2021-10-15 10:18 | Pharmacy Report ---
Pharmacy Glycemic Short Note 2 - Date of Service October 15, 2021 - Glycemic Short BSG Results (Last 24 hours): 10/14/21 10/14/21 10/14/21 12:12 16:13 19:43 Glucose POC Glucose 199 H 163 H 151 H 10/14/21 10/15/21 10/15/21 23:30 03:38 04:14 Glucose 103 H POC Glucose 105 H 116 H 10/15/21 07:52 Glucose POC Glucose 118 H OUTPATIENT ANTIDIABETIC REGIMEN: * Lantus 12 units daily * Metformin 1gm PO BID ASSESSMENT: 10/15 * BSG's have trended down since tubefeeds have been on hold (10/13 evening) * Low-dose Lantus 5 units resumed yesterday. * BSG's have been at/near goal range x24 hours (for a non-ICU status patient) * Will loosen Novolog CF/CR as they have been tightened x2 while patient has not been receiving tubefeeds - concern for decrease in BSG's if/when tubefeeds r esume 10/14 * Patient's BSGs yesterday were [phone] and overnight were 161-111 mg/dL. Fasting today is 106 mg/dL. * Patient received 45 units of insulin yesterday (10 units of basal and 35 units of bolus). * Patient self-extubated yesterday so tube feeds stopped. * Will hold Lantus at this time. Patient may require small amount tomorrow but hesitant to start right now since patient NPO. * Will pursue tighter Novolog coverage right now to prevent significant hyperglycemia with steroids. 10/13 * Patient's BSGs yesterday were [phone] and overnight were 220-203 mg/dL. "Fasting" this morning was 76 mg/dL. * Decrease Lantus to 5 units BID- patient continues on Levophed at 0.07 mcg/kg/min plus Solu-Medrol 40 mg IV daily so prefer to utilize bolus insulin to control BSGs. * Tighten CR since basal decreased. 10/12: * Insulin drip weaned off this AM given low rate (0.8unit/hr) after receiving 15 units of Lantus in addition yesterday. Remains intubated, sedated and on norepi (0.09mcg/kg/min). Abx & steroids continue. Peptamen tube feeds being titrated. * Transitioned to subcut Lantus 10 units BID (wt/stress 2) with Novolog q4h scale that was tightened this afternoon given rising BSG at lunch. 10/11 * Patient presents with acute on chronic hypoxemic respiratory failure. Patient is critically ill, intubated and sedated. History of DM2. Initiated on insulin infusion per ICU protocol (BSG on admission - 332mg/dL). Pharmacy consulted to assist with glycemic management and drip transition. * Insulin drip initiated ~ midnight last night, with an average rate of 2.3 units/hr. BSGs down trending and within goal ~ 0600 this AM. * NPO --> Peptamen @ trickle this afternoon, receiving 40mg daily Solu Medrol, antibiotics, and pressors. Given high acuity and multiple variable stressors, plan to give 10 units Lantus X 1 now (Wt/stress 2). Will allow insulin infusion to continue to run for today (OK if weans itself off). HS Lantus scale depending on insulin drip rate. If drip is running <1 unit/hr, contact pharmacy to discontinue. * Novolog scale for carb coverage of tube feeds. PLAN FOR INPATIENT GLYCEMIC CONTROL: * Hold outpatient oral diabetes medications * Basal insulin * Lantus 5 units SC daily * Bolus insulin * NovoLog per scale q4h * Goal Range: Low 110mg/dL - High 140 mg/dL * Correction factor: 20 mg/dL/unit * Carb ratio: 6 g CHO/unit PLAN FOR DISCHARGE: * TBD
[2021-10-15] MEDS ORDERED: STAT IV Infusion **Titration per Protocol STA (11:33)
[2021-10-15] MEDS ORDERED: LORazepam 1 MG/2 ML VIAL IV PRN (11:35)
[2021-10-15] MEDS ORDERED: LORazepam 2 MG/4 ML VIAL ONE (11:37)
[2021-10-15] MEDS ORDERED: MoRPHine SULF/NSS 1 MG/ML 250 ML BTL IV ONE (11:38)
[2021-10-15] MEDS ORDERED: MoRPHine SULF/NSS 250 MG/250 ML BTL IV SCH (11:45)
[2021-10-15] MEDS ORDERED: SCOPOLAMINE 1 MG TDSY TD SCH (12:00)
[2021-10-15] MEDS ORDERED: FUROSEMIDE 40 MG/4 ML VIAL IV SCH (14:00)
[2021-10-15] MEDS: CHECK SCOPOLAMINE PATCH PLACEMENT SCH (16:20)
[2021-10-15] MEDS ORDERED: BUDESONIDE 0.5 MG/2 ML VIAL (PULMICORT) NEB SCH (19:00)
[2021-10-16] MEDS: CHECK SCOPOLAMINE PATCH PLACEMENT SCH ×3 (01:42→16:57)
--- NOTE | 2021-10-16 07:46 | Pulmonology Progress Note ---
Date of Service October 16, 2021 Assessment & Plan (1) Heart failure, systolic, with acute decompensation: (2) Atrial flutter with rapid ventricular response: (3) Respiratory failure: Chronicity: acute Respiratory failure complication: hypoxia and hypercapnia Qualified Code(s): J96.01 - Acute respiratory failure with hypoxia; J96.02 - Acute respiratory failure with hypercapnia (4) COPD exacerbation: Plan: Impression: 81-year-old female with severe obstructive lung disease and chronic hypoxemic respiratory failure admitted with respiratory failure as well as atrial fibrillation with rapid ventricular response. She has 2 Pseudomonas species from her sputum. Family has elected to transition to comfort measures and she was initiated on a morphine infusion. She appears more comfortable this morning. Recommendations: 1. COPD, end-stage. Palliative care has been initiated by the primary service. Her respiratory treatments have mostly been discontinued and we appear to be focusing on management of the patient's symptoms. She is making progress from the standpoint. Will defer to primary service long-term goals. Should the patient's condition change more aggressive therapy is required or requested, we would be happy to reengage. We will sign off at this point time. Please call us if we can be of additional assistance. Admission and Anticipated Discharge Date Admission Date: October 10, 2021 Subjective 24-hour events noted. EMR reviewed. Discussed with bedside nurse. After discussion with the primary admitting service and the family, the patient has transitioned to comfort care measures. She was initiated on a morphine drip. She sitting upright this morning but is less tachypneic with decreased work of breathing. Review of Systems Review of Systems: Unobtainable due to reduced consciousness Physical Exam Constitutional: WD/WN, vitals as above Neck: trachea midline, no thyromegaly Respiratory: + tachypneic Auscultation: no crackles and no wheezes Cardiovascular: RRR, no murmur, no edema Gastrointestinal (Abdomen): normal bowel sounds, soft, nontender, no hepatosplenomegaly Musculoskeletal: Extremities: extremities normal to inspection Skin: no rashes, warm and dry Lymphatic: no cervical lymphadenopathy Results & Data Results & Data ([facility]) Laboratory Results 10/15/21 04:14 10/15/21 04:14 Diagnostic Findings No new films PG Care Time/CCT Total # of Minutes Spent Total Time Spent with Patient: Total time spent is greater than 50% in coordination of care (as documented) at patient's floor/unit and/or counseling patient: Coding Level of Care Code 03724 Subseq Hosp Care Lvl 1 Diagnoses Heart failure, systolic, with acute decompensation I50.23 Atrial flutter with rapid ventricular response I48.92 Respiratory failure J96.01; J96.02 Chronicity: acute Respiratory failure complication: hypoxia and hypercapnia COPD exacerbation J44.1
--- NOTE | 2021-10-16 14:20 | Cardiology Progress Note ---
Date of Service October 16, 2021 Assessment & Plan (1) Heart failure, systolic, with acute decompensation: (2) Atrial flutter with rapid ventricular response: (3) Left bundle branch block: Plan: 81 year old female with longstanding history of severe oxygen dependent COPD, past pAF for which pt is on sotalol and coumadin as outpatient. Newly recognized LBBB observed early August, with LVEF 55% at that time. Presented with 3 days of worsening respiratory status, CXR with profound pulmonary edema on presentation, echo with new severe systolic dysfunction LVEF ~20%, severe decline in LVEF out of proportion to relatively mild troponin elevation, with findings on echocardiogram perhaps compatible with stress induced cardiomyopathy or ischemia / infarction. Repeat technically limited focused echocardiogram for wall motion LVEF 10/14/2021, ongoing severe left ventricular systolic dysfunction, ejection fraction in the range of 20 to 25%, bilateral pleural effusions. Agree with palliative care approach. Admission and Anticipated Discharge Date Admission Date: October 10, 2021 Subjective Patient seen in follow-up. Of BiPAP, morphine infusing. Has been transitioned to comfort measures yesterday. Family had visited. Physical Exam Constitutional: + ill appearing Respiratory: Auscultation: + diminished lung sounds (Decreased breath sounds at the bases) Cardiovascular: Rate/Rhythm: regular rate and regular rhythm Heart Sounds: no murmur Extremities: no edema
[2021-10-16] MEDS ORDERED: SCOPOLAMINE 1 MG TDSY TD SCH (17:00)
--- NOTE | 2021-10-16 18:37 | Hospitalist Progress Note ---
Date of Service October 16, 2021 Assessment & Plan (1) Respiratory failure: Plan: Comfort measures only -initiated 10/15 -continue morphine drip, PRN ativan, PRN morphine boluses Acute on chronic respiratory failure Likely multifactorial: acute systolic CHF and COPD exacerbation Possible B/L Pneumonia Cardiogenic Shock -Baseline severe COPD and oxygen dependence. Current smoker -TTE 10/14 shows new reduced EF <205% compared to 55% previously. Appreciate Cardiology input, severely reduced EF out of proportion to troponin, may represent stress induced Cardiomyopathy -Patient self extubated 10/13/20. Code status changed to DNR/DNI after discussing with family and patient . Did not tolerate BIPAP. After discussing with family, she was transitioned to comfort measures 10/15 Acute systolic heart failure Bilateral Pleural effusion H/O Left bundle branch block Likely stress induced Cardiomyopathy Troponin:0.15>9.37>8.15 -CXR: Interval development of the pulmonary edema and small bilateral pleural effusions. Bibasilar densities are nonspecific but could be due to atelectasis from the pleural effusions or a pneumonia. -ECHO: Mild concentric LVH. Septal wall motion is abnormal consistent with LBBB. Left ventricle apex is akinetic. Diffuse hypokinesis to akinesis with minimal sparing of basal segments. EF< 20%. Moderate to severe pulmonary hypertension. Grade 1 diastolic dysfunction. Acute metabolic encephalopathy Secondary to above -CT Head:No acute intracranial hemorrhage, no evidence of acute territorial infarction or other acute intracranial disease process SVT Paroxysmal atrial fibrillation INR supratherapeutic Amiodarone drip discontinued due to comfort measures status Hyponatremia DM II Breast cancer S/P surgery/radiation Code Status DNI/DNR Comfort measures Admission and Anticipated Discharge Date Admission Date: October 10, 2021 Subjective Transitioned to comfort measures yesterday More comfortable on nasal canula and off BIPAP Not eating well per daughter Physical Exam Physical Exam: thin, cacchetic, appears chronically ill Respiratory: rapid shallow breathing, no wheezing/rhonchi/rales Cardiovascular: regular rate and rhythm, no murmurs/rubs/gallops Gastrointestinal (Abdomen): soft, non tender Musculoskeletal: no edema Neurologic: awake Results & Data Results & Data ([facility]) Medications Administered Current Inpatient Medications Morphine Sulfate (Morphine Sulf/Nss) 250 mg in 250 mls @ 2 mls/hr IV .Q96H [facility]; Protocol Stop: 10/29/21 11:44 Last Titration: 10/16/21 07:15 Dose: 2 mg/hr, 2 mls/hr Documented by: Lorazepam (Ativan) 1 mg in 2 mls @ 0.5 mls/min IV Q4H PRN PRN Reason: Anxiety/Agitation Stop: 11/14/21 11:34 Last Admin: 10/15/21 11:41 Dose: 0.5 mls/min Documented by: Miscellaneous (Check Scopolamine Patch Placement) 1 ea N/A QS JOHN Stop: 11/14/21 15:59 Last Admin: 10/16/21 16:57 Dose: Not Given Documented by: Miscellaneous (Remove Transderm-Scop Patch) 1 ea N/A Q72H JOHN Stop: 11/15/21 16:58 Last Admin: 10/16/21 17:12 Dose: 1 ea Documented by: Scopolamine (Scopolamine 1 Mg Tdsy) 1 mg TD Q72H JOHN; Protocol Stop: 11/15/21 16:59 Last Admin: 10/16/21 17:12 Dose: 1 mg Documented by: (1) Respiratory failure Chronicity: acute Respiratory failure complication: hypoxia and hypercapnia Qualified Code(s): J96.01 - Acute respiratory failure with hypoxia; J96.02 - Acute respiratory failure with hypercapnia
[2021-10-17] MEDS: CHECK SCOPOLAMINE PATCH PLACEMENT SCH ×2 (00:02→09:05)
--- NOTE | 2021-10-17 16:08 | Discharge Summary ---
Date of Service October 17, 2021 Admission HPI Per Admitting Provider History obtained from ER provider, family, and records. Unable to obtain history from patient secondary to intubated state. Medical history significant for chronic respiratory failure secondary to COPD on home O2, diastolic dysfunction as per records (EF 55 to 60%, TTE 2020), PAF on Coumadin, hypertension, pulmonary hypertension as per records, DM2 insulin requiring breast cancer status post surgery/radiation, chronic anemia (baseline hemoglobin 10-11), past tobacco abuse. Last confinement August 2021 for sepsis secondary to COPD exacerbation secondary to pneumonia. Sputum CS grew Pseudomonas and Aspergillus f[facility]igatus. [facility] Doxy[facility]. Sputum for fungal smear and CS studies and serum Aspergillus antigen drawn. Treatment for Aspergillus not recommended unless with solid evidence of entrenched infection and repeated positive CS as per documentation. 3 days history of worsening junky cough symptoms and shortness of breath. No aspiration concerns or weight gain as per daughter. No known recent sick contacts as per daughter. Patient has not received COVID-19 vaccination. Transient achy headache symptoms. PCP prescribed outpatient doxycycline and p rednisone course for COPD rescue today as per daughter. Patient more confused than usual as per daughter today. Patient has not started prescriptions as per family. O2 sats 70s upon EMS arrival. Patient received neb treatment and steroid Rx in route to the hospital. BiPAP initiated by EMS. At the ER, IV cefepime administered at the ER. Subsequent intubation done for worsening respiratory distress. Propofol initiated for sedation. SBP later noted to be 70s. Principal Diagnosis Acute on chronic hypoxic respiratory failure Acute COPD exacerbation End stage Emphysema Cardiomyopathy Acute systolic CHF Afib with RVR Comfort measures only status Acute metabolic encephalopathy Supratherapeutic INR Discharge Exam Thin, cachetic, sitting in bed with arms propped on knees Increased work of breathing, no audible wheezing noted Extremities no edema Discharge Data Allergies Allergy/AdvReac Type Severity Reaction Status Date / Time amoxicillin [From Augmentin] AdvReac Intermediate red - Verified 10/11/21 06:05 itchy hands clavulanic acid AdvReac Intermediate red - Verified 10/11/21 06:05 [From Augmentin] itchy hands Consultations 10/10/21 20:50 ED Decision to Admit Stat 10/10/21 23:38 Consult Director Of Distribution Routine 10/11/21 07:06 Consult Cardiology Routine Ordered Studies 10/10/21 21:39 CT head/brain wo con [facility] Course (1) Respiratory failure: Comfort measures only -initiated 10/15 -continue morphine drip, PRN ativan, PRN morphine boluses Acute on chronic respiratory failure Likely multifactorial: acute systolic CHF and COPD exacerbation -Baseline severe COPD and oxygen dependence. Current smoker -TTE 10/14 shows new reduced EF <205% compared to 55% previously. Appreciate Cardiology input, severely reduced EF out of proportion to troponin, may represent stress induced Cardiomyopathy -Patient self extubated 10/13/20. Code status changed to DNR/DNI after discussing with family and patient . Patient did not tolerate BIPAP. After discussing with family, she was transitioned to comfort measures 10/15 Acute systolic heart failure Bilateral Pleural effusion H/O Left bundle branch block Likely stress induced Cardiomyopathy Troponin:0.15>9.37>8.15 -CXR: Interval development of the pulmonary edema and small bilateral pleural effusions. Bibasilar densities are nonspecific but could be due to atelectasis from the pleural effusions or a pneumonia. -ECHO: Mild concentric LVH. Septal wall motion is abnormal consistent with LBBB. Left ventricle apex is akinetic. Diffuse hypokinesis to akinesis with minimal sparing of basal segments. EF< 20%. Moderate to severe pulmonary hypertension. Grade 1 diastolic dysfunction. Acute metabolic encephalopathy Secondary to above -CT Head:No acute intracranial hemorrhage, no evidence of acute territorial infarction or other acute intracranial disease process SVT Paroxysmal atrial fibrillation INR supratherapeutic Amiodarone drip discontinued due to comfort measures status Total Time Total Time Spent Total Time Spent (In Minutes): 40 Discharge Plan Discharge Items Patient Disposition: Hospice - Medical Facility Reason For Visit: RESP FAILURE Discharge Diagnosis: Acute on chronic hypoxic respiratory failure Acute COPD exacerbation End stage Emphysema Cardiomyopathy Afib with RVR Comfort measures only status Supratherapeutic INR Condition on Discharge: Fair Activity: As commented below Lifting: None Bathing: No limitations Exercise/Sports: As tolerated Weightbearing: Full weightbearing Non-emergency contact: Primary Care Provider Call non-emergency contact if: you have any medication questions and your symptoms worsen Follow-up/Referrals: Radha Beck, [Primary Care Provider] - Diet: Regular Addtl Attending Provider Instructions: Continue morphine drip for comfort PRN for anxiety PRN morphine push for air hunger Pending Studies at Discharge: No Stand-Alone Forms: My [facility] Skilled Items Patient informed of condition?: Yes DNR: Yes Discharge Level of Care: Other Communicable Disease: No Discharge Prognosis: Other Lines: Peripheral IV Urinary Catheter: Yes Medications and DC Order Prescriptions: Discontinued ipratropium-albuterol 0.5 mg-3 mg(2.5 mg base)/3 mL solution for nebulization 3 ml INHALATION Q4 PRN (Reason: cough,sob,wheezing) Qty: 180 RF: 5 albuterol sulfate 90 mcg/actuation HFA aerosol inhaler 2 inh inhalation Q4 PRN (Reason: cough,sob,wheezing) Qty: 8.5 RF: 5 prednisone 10 mg tablet See Rx Instructions PO DAILY Qty: 36 RF: 0 doxycycline hyclate 100 mg capsule 100 mg PO BID Qty: 20 RF: 0 multivitamin [One-A-Day Essential] tablet 1 tab PO DAILY RF: 0 (DME) Oxygen Home Liters Per Minute See Dose Instructions .ROUTE .MEDSUPPLY Qty: 1 RF: 0 amlodipine 5 mg tablet 5 mg PO DAILY Qty: 1 RF: 0 insulin glargine 100 unit/mL solution 12 unit subcut DAILY RF: 0 metformin 1,000 mg tablet 1,000 mg PO BID Qty: 180 RF: 0 sotalol 80 mg tablet 80 mg PO Q12 RF: 0 (DME) nebulizers misc See Dose Instructions .ROUTE .MEDSUPPLY Qty: 1 RF: 0 Caltrate + D3 Plus Minerals 300 mg-800 unit -25 mg-0.5 mg tablet 1 tab PO BID RF: 0 (DME) Portable Oxygen Misc See Rx Instructions .ROUTE .MEDSUPPLY Qty: 1 RF: 0 (DME) Fernando Hose Misc See Rx Instructions .Route Qty: 2 RF: 1 aspirin [Aspirin Childrens] 81 mg Tablet,Chewable 81 mg PO DAILY RF: 0 lisinopril-hydrochlorothiazide 20-25 mg tablet 1 tab PO DAILY RF: 0 warfarin 2.5 mg Tablet 2.5 - 5 mg PO DIRECTED RF: 0 ipratropium-albuterol 0.5 mg-3 mg(2.5 mg base)/3 mL solution for nebulization 3 ml INHALATION Q4 PRN (Reason: .COUGH, SOB, WHEEZING) RF: 0 Bevespi Aerosphere 9-4.8 mcg HFA aerosol inhaler 2 puff INHALATION BID RF: 0 Discharge Orders: Discharge Order (Routine); Ordered 10/17/21 Ordered By: Anoop Mccormick Admission Data Admit Date/Time: 10/10/21 21:47 Attending Provider: Anoop Mccormick Admit Provider: Checo Fonseca Primary Care Provider: Radha Beck Other Providers: Lane Reese ; Checo Fonseca ; Dez Ramsey ; Roland Bustos ; Gus Clement ; Elijah Herring ; Sarabjit Banda ; Branden Reid. ; Duglas Sexton ; Kristen Jon ; Yuliya Rivas ; Maliha Armstrong. ; Cody Bauman ; [facility]
--- NOTE | 2021-10-25 10:56 | Coding Query ---
SEPSIS To promote full compliance with coding requirements relating to patient care, physician participation is requested in all cases of armed guard uncertainty. Please assist us with the question(s) below: In responding to this query, please exercise your independent professional judgement. The fact that a question is asked does not imply that any particular answer is desired or expected. We appreciate your clarification on this issue. Throughout the medical record, you have clearly documented a localized infection and your patient has clinical evidence of a generalized sepsis or severe sepsis. The term urosepsis is a nonspecific entity and is coded as an UTI. If the patient has sepsis, severe sepsis, from an urinary source or some other source, please clarify in your response below. The medical record reflects the following clinical findings: pt admitted with SOB, pneumonia, acute on chronic rspiratory failure. Intubated in ED . 10/13 progress note mentions septic shock. Other progress notes document cardiogenic shock. Please check below the diagnosis , if applicable, that was treated during this IP stay. Thank you. Alonzo Ny [facility] ____ ( )Bacteremia (Nonspecific laboratory finding of bacteria in the blood) Specify Organism ( ) Present on Admission ( ) Not present on admission ( ) Unable to clinically determine ( ) Septicemia (Systemic disease associated with the presence of pathogenic microorganisms in the blood): Specify Organism ( ) Present on Admission ( ) Not present on admission ( ) Unable to clinically determine ( ) Sepsis Specify Organism Specify Associated Condition/Diagnosis ( ) Present on Admission ( ) Not present on admission ( ) Unable to clinically determine ( ) Severe Sepsis (Sepsis associated with acute organ dysfunction) Specify Organism Specify Associated Condition/Diagnosis ( ) Present on Admission ( ) Not present on admission ( ) Unable to clinically determine ( ) Septic Shock (Severe sepsis with acute circulatory failure, unexplained by other causes) ( ) Present on Admission ( ) Not present on admission ( ) Unable to clinically determine (X ) Other, patient has: Sepsis was ruled out. [facility]
== END 2021-10-17 16:07 | disposition hospice, inpatient (51) | DRG 208 ==
LOC: ED 19:42 → 1E 21:47 → SUATTDRO 21:47 → 1E 23:00 → 3W 10-16 15:13

== ENCOUNTER 2021-10-17 16:12 | Inpatient (IN) ==
[2021-10-17] MEDS ORDERED: HYOSCYAMINE SULFATE 0.125 MG TAB SL PRN (16:27)
[2021-10-17] MEDS ORDERED: ONDANSETRON 4 MG OD TAB SL PRN (16:27)
[2021-10-17] MEDS ORDERED: LORazepam 0.5 MG/1 ML VIAL IV PRN (16:27)
[2021-10-17] MEDS ORDERED: ONDANSETRON INJ 2 MG/ML 2 ML VIAL IV PRN ×2 (16:27)
[2021-10-17] MEDS ORDERED: LORazepam 0.5 MG TAB PO PRN (16:27)
[2021-10-17] MEDS ORDERED: POLYETHYLENE (MIRALAX) 17 GM PACK PO PRN (16:27)
[2021-10-17] MEDS ORDERED: ACETAMINOPHEN 325 MG TAB PO PRN (16:27)
[2021-10-17] MEDS ORDERED: STAT IV Infusion **Titration per Protocol STA (16:27)
[2021-10-17] MEDS ORDERED: MoRPHine SULF/NSS 250 MG/250 ML BTL IV SCH (16:30)
--- NOTE | 2021-10-18 15:19 | History & Physical Report ---
Date of Service October 17, 2021 Assessment & Plan Plan: Comfort Focused Care only Inpatient Hospice patient -continue morphine drip, ativan PRN, comfort focused medications Remaining problem list as below Acute on chronic hypoxic respiratory failure Acute COPD exacerbation End stage Emphysema Cardiomyopathy Acute systolic CHF Afib with RVR Acute metabolic encephalopathy Supratherapeutic INR Admission and Anticipated Discharge Date Admission Date: October 17, 2021 History of Present Illness Chief Complaint: comfort measures only encounter for IP hospice admission Primary Care Provider: Radha Beck DO Ms Salome Rodriguez is a 81 year old female with history of severe emphysema on chronic oxygen, chronic diastolic dysfunction,PAF on coumadin, HTN, pulmonary hypertension, prior breast cancer s/p XRT and surgery, prior smoker was admitted 10/10 for worsening respiratory failure. She required intubation upon arrival. She was managed for acute COPD exacerbation but subsequently found to also have acute systolic CHF with a severely reduced EF suggestive of stress cardiomyopathy. On her prior hospitalization, she also was in a fib with RVR and was on an amiodarone drip. She self extubated and afterwards was adamant that she not be placed back on the ventilator. She was placed on BiPAP which she did not tolerate with increased work of breathing, agitation and discomfort. After discussing with patient and family, she was transitioned to comfort measures. She was evaluated by [facility] hospice 10/17 and felt to be approriate. So was then discharged and readmitted to [facility] hospice. Allergies Allergy/AdvReac Type Severity Reaction Status Date / Time amoxicillin [From Augmentin] AdvReac Intermediate red - Verified 10/11/21 06:05 itchy hands clavulanic acid AdvReac Intermediate red - Verified 10/11/21 06:05 [From Augmentin] itchy hands Past Med/Surg History Medical History (Updated 10/14/21 @ 10:19 by Dez Ramsey MD) CHF (congestive heart failure) (12/07/13) Chronic dyspnea Chronic respiratory failure with hypoxia COPD (chronic obstructive pulmonary disease) COPD exacerbation (12/07/13) DCIS (ductal carcinoma in situ) of breast Delirium Diabetes Heart failure, systolic, with acute decompensation Hypertension Insulin dependent diabetes mellitus Paroxysmal atrial fibrillation Respiratory failure with hypoxia Surgical History History of carpal tunnel release History of dental surgery History of partial mastectomy History of tubal ligation Family History Mother Diabetes Other Breast cancer Deep vein thrombosis Social History Smoking Status: Unknown if ever smoked packs per day: 0.5; Years Smoked: 20; Second Hand Exposure: Yes; Preferred Language: Armenian Communication Ability: Effective Hide Or Skin Buffer Required: No Beliefs That Will Affect Care: None marital status: / Current Living Situation: Alone Current Living Situation Comment: [facility] How many Children do You have: 2 Feels Safe at Home: Yes Assistive Devices: None Review of Systems Review of Systems: shortness of breath no chest pain, wheezing, abdominal pain or discomfort Physical Exam Physical Exam: Please refer to my discharge note from today for the physical exam Code Status & VTE Plan Code Status DNR/DNI VTE Prophylaxis Plan VTE Prophylaxis will be ordered: No
--- NOTE | 2021-10-18 15:29 | Hospitalist Progress Note ---
Date of Service October 18, 2021 Assessment & Plan Plan: Comfort Focused Care only Inpatient Hospice patient -continue morphine drip, ativan PRN, comfort focused medications Remaining problem list as below Acute on chronic hypoxic respiratory failure Acute COPD exacerbation End stage Emphysema Cardiomyopathy Acute systolic CHF Afib with RVR Acute metabolic encephalopathy Admission and Anticipated Discharge Date Admission Date: October 17, 2021 Subjective Family present at bedside Feels comfortable Denies nausea/vomiting Patient with no specific complaints currently Physical Exam Physical Exam: thin, cachetic ENMT: temporal muscle wasting Respiratory: appears more comfortable mild tachypnea, pursed lip breathing Cardiovascular: regular rate and rhythm Gastrointestinal (Abdomen): soft, non tender Musculoskeletal: thin, no edema Neurologic: awake, not answering questions Psychiatric: calm Results & Data Results & Data ([facility]) Medications Administered Current Inpatient Medications Acetaminophen (Acetaminophen 325 Mg Tab) 650 mg PO Q4H PRN PRN Reason: pain/fever Stop: 11/16/21 16:26 Hyoscyamine (Hyoscyamine Sulfate 0.125 Mg Tab) 0.125 mg SL Q4H PRN PRN Reason: Secretions or Pulm Congestion Stop: 11/16/21 16:26 Lorazepam (Ativan) 0.5 mg in 1 mls @ 1 mls/min IV Q4H PRN PRN Reason: Anxiety/Agitation Stop: 11/16/21 16:26 Morphine Sulfate (Morphine Sulf/Nss) 250 mg in 250 mls @ 3.5 mls/hr IV .[id number] [facility]; Protocol Stop: 10/31/21 16:29 Last Titration: 10/18/21 11:52 Dose: 3.5 mg/hr, 3.5 mls/hr Documented by: Lorazepam (Lorazepam 0.5 Mg Tab) 0.5 mg PO Q4H PRN PRN Reason: Anxiety/Agitation Stop: 11/16/21 16:26 Last Admin: 10/17/21 18:35 Dose: 0.5 mg Documented by: Ondansetron HCl (Ondansetron Inj 2 Mg/Ml 2 Ml Vial) 4 mg IV Q4H PRN PRN Reason: Nausea &/or Vomiting Stop: 11/16/21 16:26 Ondansetron HCl (Ondansetron 4 Mg Od Tab) 4 mg SL Q4H PRN PRN Reason: Nausea &/or Vomiting Stop: 11/16/21 16:26 Ondansetron HCl (Ondansetron Inj 2 Mg/Ml 2 Ml Vial) 4 mg IV Q6H PRN PRN Reason: Nausea Stop: 11/16/21 16:26 Polyethylene Glycol (Polyethylene (Miralax) 17 Gm Pack) 17 gm PO DAILY PRN PRN Reason: Constipation Stop: 11/16/21 16:26
--- NOTE | 2021-10-19 03:08 | Death Pronouncement Note ---
Date of Service October 19, 2021 Pronouncement Note Admission Date October 17, 2021 Date and Time of Date of : 10/19/21 Time of : 02:30 Additional Data Confirmation of : no pulse, no respirations, no heart sounds and pupils fixed and dilated Family: contacted Attending physician: Anoop Mccormick MD
--- NOTE | 2021-10-19 18:41 | Discharge Summary ---
Date of Service October 19, 2021 Admission HPI Per Admitting Provider Ms Salome Rodriguez is a 81 year old female with history of severe emphysema on chronic oxygen, chronic diastolic dysfunction,PAF on coumadin, HTN, pulmonary hypertension, prior breast cancer s/p XRT and surgery, prior smoker was admitted 10/10 for worsening respiratory failure. She required intubation upon arrival. She was managed for acute COPD exacerbation but subsequently found to also have acute systolic CHF with a severely reduced EF suggestive of stress cardiomyopathy. On her prior hospitalization, she also was in a fib with RVR and was on an amiodarone drip. She self extubated and afterwards was adamant that she not be placed back on the ventilator. She was placed on BiPAP which she did not tolerate with increased work of breathing, agitation and discomfort. After discussing with patient and family, she was transitioned to comfort measures. She was evaluated by [facility] hospice 10/17 and felt to be approriate. So was then discharged and readmitted to [facility] hospice. Principal Diagnosis Acute on chronic hypoxic respiratory failure Cardiomyopathy Acute COPD exacerbation Severe emphysema [facility] Discharge Exam Please see note for exam. Discharge Data Allergies Allergy/AdvReac Type Severity Reaction Status Date / Time amoxicillin [From Augmentin] AdvReac Intermediate red - Verified 10/11/21 06:05 itchy hands clavulanic acid AdvReac Intermediate red - Verified 10/11/21 06:05 [From Augmentin] itchy hands Hospital Course Medical history significant for chronic respiratory failure secondary to COPD on home O2, diastolic dysfunction as per records (EF 55 to 60%, TTE 2020), PAF on Coumadin, hypertension, pulmonary hypertension as per records, DM2 insulin requiring breast cancer status post surgery/radiation, chronic anemia (baseline hemoglobin 10-11), past tobacco abuse. She was admitted recently for acute on chronic hypoxic respiratory failure requiring intubation. During her hospital course, she self extubated and after further discussion with patient and her family was made DNR/DNI. She did not tolerate BIPAP however and family requested she be transitioned to comfort measures. She was then admitted to [facility] hospice 10/18. While on [facility], she shortly later. Total Time Total Time Spent Total Time Spent (In Minutes): 35 Discharge Plan Discharge Items Patient Disposition: Other Date/Time: 10/19/21 02:30 Interventions: Discharge Summary Assessment (RN) Last Done: 10/19/21 03:13
== END 2021-10-19 03:40 | disposition expired | DRG 189 ==
LOC: 3W 16:12
DX: R79.1 Abnormal coagulation profile; Z88.0 Allergy status to penicillin; I42.9 Cardiomyopathy, unspecified; J44.1 Chronic obstructive pulmonary disease with (acute) exacerbation; G93.41 Metabolic encephalopathy; Z66 Do not resuscitate; J96.21 Acute and chronic respiratory failure with hypoxia; I48.91 Unspecified atrial fibrillation; Z51.5 Encounter for palliative care; I50.21 Acute systolic (congestive) heart failure; E11.9 Type 2 diabetes mellitus without complications